=== PATIENT | male | born 1940 | race Caucasian/White ===

== ENCOUNTER 2020-11-21 07:46 | Outpatient (REF) | payer MEDICARE, SELFPAY ==
--- NOTE | ~2020-11-21 | XR_ITS ---
EXAMINATION: XR SHOULDER, RIGHT CLINICAL INFORMATION: Pain right shoulder. COMPARISON: None TECHNIQUE: AP external rotation, Grashey, scapular Y, and axillary views of the right shoulder. FINDINGS: There is loss of right AC joint space with periarticular spurring. The glenohumeral joint space is reduced with minimal glenoid spurring. No loose bodies or bony erosive changes seen. There is no dislocation or subluxation. The soft tissues are normal. XR/XR shoulder RT min 2V IMPRESSION: Mild degenerative changes right AC and glenohumeral joints. No acute fracture, loose bodies or soft tissue calcification.
== END 2020-11-21 07:47 | disposition home or self-care (01) ==
LOC: HO.XRAY 07:46
PROVIDERS: PCP Internal Medicine; Visit Provider Internal Medicine
DX: M25.519 Pain in unspecified shoulder (principal)
CPT/HCPCS: 73030

== ENCOUNTER 2021-02-05 14:00 | Outpatient (RCR) | payer MEDICARE, SELFPAY ==
[2020-12-31 14:08] VITALS: BP 118/70
--- NOTE | 2020-12-31 15:27 | MHC.PT.EP ---
[facility] [place] Office [place] Office [place] Office [address] Carmeliat Mendez [address] [phone] F: [phone] F: [phone] F: [phone] F: [phone] Physical Therapy Plan of Care Date of Evaluation: 12/31/20 Date of Surgery: N/A Diagnosis: R Shoulder Pain Assessment: Jeffrey is a 80-year-old man presenting to physical therapy with a diagnosis of R shoulder pain. He demonstrates deficits in R shoulder strength and ROM, impaired scapular muscle strength, and impaired posture. Jeffrey would benefit from skilled therapy to address the aforementioned impairments and increase his tolerance to reaching overhead and behind his back, lifting and carrying items, and sleeping comfortably through the night as needed for ADLs and IADLs. Jeffrey demonstrates a good understanding of his prognosis and POC and is motivated to participate in therapy. Frequency and Duration: The patient will be seen 2 visits per week for 5 weeks Short Term Goals: -Pt will report <2/10 pain at rest in his R shoulder to allow him to sleep through the night within 3 weeks. -Pt will independently check and assess seated posture while watching television within 3 weeks. 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 -Pt will be able to tuck his shirt in and wash his hair with <2/10 pain within 5 weeks. -Pt will be independent with [facility] for symptom management and maintenance following discharge within 5 weeks. Treatment Plan: Modalities to reduce pain, spasms and effusion. Manual therapy to restore motion and function. Therapeutic exercise to improve strength and flexibility. Neuromuscular re-education for posture and balance. Therapeutic activities to return to functional activities of daily living. Electronically signed by: Evonne Arndt, PT, DPT Please sign and return to therapist. Thank you for your referral.
--- NOTE | 2021-02-05 14:50 | MHC.PT.DC ---
[facility] [place] Office [place] Office [place] Office [address] Carmelita Mendez [address] [phone] F: [phone] F: [phone] F: [phone] F: [phone] Physical Therapy Discharge Report Diagnosis: R shoulder pain Date of Surgery: N/A Date of Evaluation: 12/31/20 Date of Discharge: 02/05/21 Treatments to Date: 11 Cancellations to Date: 0 No Shows to Date: 0 Discharge Status: Achieved Goals Improved Function Independent with HEP Discharge Summary: 02/05/21- Jeffrey has completed 11 PT visits and has achieved all goals set for him. He has improved and is independent with all HEPs. Jeffrey was therefore d/c from therapy today. He is in agreement with the plan. Electronically signed by: Evonne Arndt, PT, DPT Please sign and return to therapist. Thank you for your referral.
== END 2021-02-05 14:51 | disposition other institution (70) ==
LOC: HO.PT 14:00
PROVIDERS: PCP Internal Medicine; Visit Provider Internal Medicine
DX: M25.511 Pain in right shoulder (principal)
CPT/HCPCS: 97110; 97112; 97140; 97161; 97530

== ENCOUNTER 2021-08-15 18:43 | Inpatient (IN) | payer MEDICARE, OTHER, SELFPAY ==
--- NOTE | ~2021-08-15 | XR_ITS ---
EXAMINATION: XR CHEST CLINICAL INFORMATION: NG tube confirmation COMPARISON: 01/07/2017 TECHNIQUE: Frontal view of the chest was obtained. FINDINGS: Nasogastric tube tip lies in the proximal stomach with side-port in the region of the distal esophagus. The lung apices are not fully included in the [id number]. No focal consolidation is seen. No evidence of pleural effusion or pulmonary edema. The cardiomediastinal contour is unremarkable. There is partial visualization of gaseous distention of the stomach. XR/XR chest 1V IMPRESSION: Nasogastric tube tip in the proximal stomach with side-port in the region of the distal esophagus; advancement by approximately 10 cm is recommended.
--- NOTE | ~2021-08-15 | CT_ITS ---
EXAMINATION: CT ABDOMEN AND PELVIS WITH CONTRAST CLINICAL INFORMATION: Postop gastrojejunostomy. Fever and nausea. Question collection, obstruction. Evaluation. COMPARISON: Prior examinations including most recent CT abdomen and pelvis July 2021. TECHNIQUE: Multidetector volumetric images were obtained from the superior aspect of the liver through the pubic symphysis following administration 85 mL of Omnipaque 350 intravenous contrast. Sagittal and coronal reformatted images were obtained on the technologist's workstation. Oral contrast: No This CT examination was performed using dose optimization techniques as appropriate, variously including the following: *Automated exposure control *Adjustment of mA and/or kV according to patient size (this includes techniques or standardized protocols for targeted exams where dose is matched to indication/reason for exam; i.e. extremities or head) *Use of iterative reconstruction technique DLP: 599 mGy-cm FINDINGS: LUNG BASES: The visualized lung bases are unremarkable. LIVER, GALLBLADDER, AND BILIARY TREE: The liver is normal in size, shape, and attenuation. There is a 1 cm low-density lesion in the posterior aspect of the right lobe of the liver as seen on axial image 31 series 8. This is unchanged compared to prior. The gallbladder is unremarkable with no evidence of radiopaque gallstones, gallbladder wall thickening, or obvious pericholecystic inflammatory changes. PANCREAS: See description of adjacent mass below. Pancreas otherwise unremarkable. SPLEEN: Unremarkable. ADRENAL GLANDS: Left adrenal nodule unchanged measuring 19 mm transverse. Measures 39 Hounsfield units. KIDNEYS AND URETERS: Multiple hypodensities in the right kidney largest measuring approximately 1 cm unchanged compared to prior compatible with simple cyst. The other lesions are too small to clearly characterize but likely reflecting additional cysts. BLADDER: Unremarkable. GASTROINTESTINAL TRACT: Postop changes related to gastrojejunostomy. Persistent bowel wall thickening of the gastric antrum similar to prior. As before there is a complex predominately hypodense mass abutting the duodenum and pancreatic head. This measures 4.1 cm transverse previously 5 cm. There is mild stranding in the surrounding soft tissues. Bowel loops do not appear dilated. There is no localized fluid collection. Large bowel unremarkable. Moderate amount of fluid within the stomach. ABDOMINAL WALL: Postoperative changes with skin jasper in place in the midline. LYMPH NODES: Normal. VASCULAR: There is a moderate amount of arterial calcification present throughout. PELVIC VISCERA: Unremarkable. OSSEOUS STRUCTURES: There is spondylosis of the lumbosacral spine with multilevel degenerative disc changes most prominent and severe at the L5-S1 level unchanged. There is some sclerosis on the iliac side of the right SI joint perhaps reflecting subchondral cystic change related to arthrosis. CT/CT abdomen pelvis w con IMPRESSION: Persistent nonspecific but concerning mass in the right upper quadrant abutting the antrum of the stomach and pancreas. Persistent thickening of the wall of the antrum of the stomach. Findings remain concerning for gastric malignancy with adjacent necrotic node. Hypoattenuating lesion in the right lobe of the liver nonspecific and does not appear to represent a simple cyst. Neoplasm/metastatic disease remains a consideration particularly given the aforementioned findings. Indeterminate nodule left adrenal gland. Possibility of malignancy remains as noted previously particularly given the aforementioned findings.
--- NOTE | ~2021-08-15 | CT_ITS ---
EXAMINATION: CT ANGIOGRAM OF THE CHEST WITH AND WITHOUT CONTRAST (CT PULMONARY ANGIOGRAM FOR PE) CLINICAL INFORMATION: Cough. Rising white blood cell count. Gastric cancer. Evaluate for a pulmonary embolism. COMPARISON: Most recent chest radiograph done earlier the same day. TECHNIQUE: Prior to contrast administration, noncontrast localization images were obtained. Subsequently, multidetector volumetric imaging was performed from the thoracic inlet to below the diaphragms following the administration of 85 mL Omnipaque 350 intravenous contrast. No contrast reaction reported. Sagittal, coronal, and MIP oblique sagittal reformatted images were obtained on the CT workstation, uploaded to PACS, and reviewed. This CT examination was performed using dose optimization techniques as appropriate, variously including the following: *Automated exposure control *Adjustment of mA and/or kV according to patient size (this includes techniques or standardized protocols for targeted exams where dose is matched to indication/reason for exam; i.e. extremities or head) *Use of iterative reconstruction technique Total exam dose-length product 221 mGy-cm. FINDINGS: QUALITY OF STUDY/CONTRAST BOLUS: Satisfactory. PULMONARY ARTERIES: No central or segmental pulmonary emboli. THORACIC AORTA: No aneurysm or dissection. LUNG: Mild biapical nodular pleural thickening. Mild bibasilar dependent atelectasis. No large, confluent airspace consolidation. The central airways are patent. PLEURA: No pleural effusion or pneumothorax. MEDIASTINUM: Normal heart size. No pericardial effusion. No hilar or mediastinal lymphadenopathy. No evidence of septal bowing or right heart strain. CHEST WALL/AXILLA: No axillary or internal mammary lymphadenopathy. OSSEOUS STRUCTURES: No acute or suspicious osseous abnormality. UPPER ABDOMEN: Upper abdominal surgical clips. Partially visualized gastric wall thickening, better evaluated on the concurrent CT abdomen/pelvis. No reflux of contrast into the hepatic veins to suggest elevated right heart pressures. CT/CT angio chest PE protocol IMPRESSION: 1. No CT angiographic evidence of acute pulmonary embolism. 2. No large, confluent airspace consolidation. 3. No lymphadenopathy. 4. Partially visualized gastric wall thickening, better evaluated on the concurrent CT abdomen/pelvis. VTE: Negative
--- NOTE | ~2021-08-15 | XR_ITS ---
EXAMINATION: XR CHEST CLINICAL INFORMATION: Cough and fever. COMPARISON: Chest radiographs dated 08/27/2021 and 08/15/2021. TECHNIQUE: 2 views of the chest were obtained. FINDINGS: Support devices: Interval removal of enteric tube. There is generalized hyperinflation. Minimal linear markings are seen at the left lung base. Mild biapical pleural thickening and scarring is seen. The heart and mediastinal structures are unremarkable. XR/XR chest 2V IMPRESSION: Generalized hyperinflation is nonspecific, but can be seen with COPD. No acute cardiopulmonary process.
--- NOTE | ~2021-08-15 | XR_ITS ---
EXAMINATION: XR CHEST CLINICAL INFORMATION: Cough. COMPARISON: Previous chest x-ray 08/15/2021 TECHNIQUE: 2 views of the chest were obtained. FINDINGS: There is a nasogastric tube with tip projecting over the distal thoracic esophagus. The cardiac and mediastinal contours are normal. There is biapical pleural thickening. The lungs are otherwise clear. There is no pleural effusion or pneumothorax. Bony structures are unremarkable. XR/XR chest 2V IMPRESSION: No evidence for acute disease in the chest. Nasogastric tube tip projects over the distal thoracic esophagus.
--- NOTE | ~2021-08-15 | CT_ITS ---
EXAMINATION: CT ABDOMEN AND PELVIS WITH CONTRAST CLINICAL INFORMATION: Epigastric pain. COMPARISON: No similar priors. TECHNIQUE: Multidetector volumetric images were obtained from the superior aspect of the liver through the pubic symphysis following administration 85 mL of Omnipaque 350 intravenous contrast. Sagittal and coronal reformatted images were obtained on the technologist's workstation. Oral contrast: No This CT examination was performed using dose optimization techniques as appropriate, variously including the following: *Automated exposure control *Adjustment of mA and/or kV according to patient size (this includes techniques or standardized protocols for targeted exams where dose is matched to indication/reason for exam; i.e. extremities or head) *Use of iterative reconstruction technique DLP: 382 mGy-cm FINDINGS: LUNG BASES: Small calcified granuloma in the left lung base (4:140). No focal consolidation or pleural effusion. LIVER, GALLBLADDER, AND BILIARY TREE: Too small to characterize liver hypodensity in the left hepatic lobe (3:11). There is an additional up to 1 cm hypodensity in the right hepatic lobe (3:26) measuring higher than simple fluid in attenuation. The liver is otherwise normal in size, shape and attenuation. There is a 0.2 cm hyperattenuating nodule in the gallbladder (5:32) possibly representing a polyp or a stone. There is no evidence of gallbladder wall thickening or pericholecystic inflammatory changes. PANCREAS: No focal lesions. The main pancreatic duct is nondilated. No peripancreatic fat stranding or free fluid. SPLEEN: Normal size. No focal lesions. ADRENAL GLANDS: There is a 1.9 cm nodule in the left adrenal gland measuring up to 43 Hounsfield units. The right adrenal gland is engorged but without discrete nodularities. KIDNEYS AND URETERS: The kidneys are normal in size, shape, and attenuation. In the lateral surface of the mid pole of the right kidney there is a 0.8 cm simple cyst and slightly more inferiorly in the right kidney there is a 1.4 cm simple cyst. There are multiple other too small to characterize hypodensities bilaterally that statistically are also likely to represent simple cysts and do not require further workup. No hydronephrosis, hydroureter, or calculi seen. No perinephric stranding. BLADDER: Unremarkable. GASTROINTESTINAL TRACT: The stomach is dilated secondary to an obstructive abnormality in the stomach antrum where there is circumferential and irregular wall thickening of the wall, worrisome for an underlying neoplasia (5:21). The small bowel is nondilated. There are no pericolic inflammatory changes. The appendix is not definitely visualized, however there are no inflammatory changes at the cecal base to suspect appendicitis. There is moderate stool burden throughout the colon. No bowel obstruction. ABDOMINAL WALL: No significant hernia is appreciated. 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 VASCULAR: Atherosclerotic disease. The abdominal aorta is of normal diameter. Evaluation of the arteries near the antral mass is suboptimal due to delayed timing of intravenous contrast. PELVIC VISCERA: Enlarged prostate. OSSEOUS STRUCTURES: No acute or suspicious osseous abnormalities. There is severe multilevel lumbar spondylosis, more apparent at L5-S1 CT/CT abdomen pelvis w con IMPRESSION: Circumferential and irregular wall thickening at the gastric antrum concerning for an underlying neoplasia. 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 There is a 1 cm hypoattenuating lesion in the right hepatic lobe which is also worrisome for metastatic disease. There is an indeterminate 1.9 cm hyperattenuating nodule in the left adrenal gland in which metastatic disease cannot be entirely excluded given additional findings. This result was discussed with Dr Valiente at 08/15/2021 9:16 PM and it was ascertained that the content and urgency of the report was understood at the time of direct communication.
--- NOTE | ~2021-08-15 | XR_ITS ---
EXAMINATION: XR SHOULDER, RIGHT CLINICAL INFORMATION: Right shoulder pain COMPARISON: 11/21/2020 TECHNIQUE: AP external rotation, Grashey, scapular Y, and axillary views of the right shoulder. FINDINGS: No fracture or dislocation seen. Visualized right lung and ribs are normal. Again seen is joint space narrowing and osteophytosis of the acromioclavicular joint. Glenohumeral joint is maintained. XR/XR shoulder RT min 2V IMPRESSION: Similar appearance of right acromioclavicular joint arthrosis but no acute osseous abnormality.
--- NOTE | ~2021-08-15 | FL_ITS ---
EXAMINATION: UPPER GI WITH GASTROGRAFIN CLINICAL INFORMATION: POST GASTROJEJUNOSTOMY. CHECK FOR GASTRIC EMPTYING. COMPARISON: None TECHNIQUE: Limited single contrast upper GI was performed with dilute Gastrografin. Exam was performed of the patient upright. Diluted Gastrografin was administered through the nasogastric tube. FINDINGS: There is a nasogastric tube with tip projecting over the distal thoracic esophagus. The distal thoracic esophagus is normal. The gastric jejunal anastomosis is patent. There is no evidence of gastric outlet obstruction. No leak is seen. The stomach is slightly distended and filled with air. FL/FL upper GI w gastrografin IMPRESSION: No evidence of leak or gastric outlet obstruction. Nasogastric tube tip projects over the distal thoracic esophagus.
[2021-08-15 18:56] VITALS: BP 142/87; PULSE 98; RESP 16; TEMP 36.8; O2SAT 96
[2021-08-15 18:58] VITALS: BP 136/96; PULSE 112; O2SAT 99
--- NOTE | 2021-08-15 18:59 | ECG_ITS ---
Test Reason : ABDOMINAL PAIN Blood Pressure : / mmHG Vent. Rate : 092 BPM Atrial Rate : 092 BPM P-R Int : 136 ms QRS Dur : 098 ms QT Int : 362 ms P-R-T Axes : 067 069 071 degrees QTc Int : 447 ms Sinus rhythm with Premature atrial complexes Incomplete right bundle branch block Nonspecific ST abnormality Inferior leads Abnormal ECG No previous ECGs available Referred By: Shannen Valiente Electronically Signed By:BJORN GONZALEZ MD
[2021-08-15 19:09] VITALS: BP 142/87; PULSE 94; RESP 18; TEMP 36.8; O2SAT 98; BMI 20.3
--- NOTE | 2021-08-15 19:13 | ED_ITS ---
HPI - Abdominal Pain General Chief Complaint: Abdominal Pain Stated Complaint: abd pain vomiting Time Seen by Provider: 08/15/21 18:58 Source: patient Mode of arrival: ambulatory History of Present Illness HPI narrative: 81-year-old male with history of hypertension presents with complaints of epigastric pain with associated very black stools for the past 2-3 days and then patient states that he started having nausea and vomiting this mo rning. He denies that there is any blood within the vomitus and states that he has been having pretty bad reflux for the past 2-3 weeks and his primary care provider chest instructed him to get [id number] Zantac which he states has not been helping. Otherwise, patient denies any fever, chills, shortness of breath, chest pain/palpitations, urinary pain/burning/frequency and denies any intra-abdominal surgery other than appendectomy and denies any history of renal colic. Patient also denies any alcohol or drug use. Related Data Previous Rx's Medication Instructions Recorded amlodipine 5 mg tablet 5 mg PO DAILY #90 cap 01/01/21 hydrochlorothiazide 25 mg tablet 25 mg PO DAILY #90 cap 01/01/21 Allergies Allergy/AdvReac Type Severity Reaction Status Date / Time No Known Allergies Allergy Verified 07/26/21 10:51 [No Known Allergies*] Review of Systems Review of Systems Pertinent positives and negatives as stated in HPI 10 point review of systems is otherwise negative. Physical Exam Vital Signs: Vital Signs: Last Vital Signs Temp 98.2 F 08/15/21 19:31 Pulse 86 08/15/21 19:31 Resp 18 08/15/21 19:31 BP 156/88 H 08/15/21 19:31 Pulse Ox 97 08/15/21 19:31 Body Mass Index 20.3 VITAL SIGNS: Reviewed. GENERAL: Well developed, well nourished, in no acute distress. HEAD: Normocephalic/atraumatic EYES: PERRLA, EOMI OROPHARYNX: no oral lesions noted, posterior pharynx clear LUNGS: Normal breath sounds. No adventitious sounds or accessory muscle use. SpO2<98> CARDIOVASCULAR: Regular rate and rhythm without noted murmurs, no JVD or lower extremity edema. ABDOMEN: Soft, tenderness on palpation the epigastrium without rebound non- distended with bowel sounds. GIAN: Noninflamed external hemorrhoids, no fissures, empty rectal vault without stool, good rectal tone SKIN: Inspection of the skin reveals no rashes NEUROLOGIC: Alert and oriented x 4. Course Course Course Narrative: 81-year-old male with history and clinical presentation consi stent with possible PUD with subsequent bleeding, although equivocal GIAN. Review of all investigations unfortunately consistent with gastric mass and suspicious for metastatic disease. Patient was informed of all results and the case was discussed with Gastroenterology, surgery, and patient was admitted to Medicine for further evaluation. MDM - Abdominal Pain Lab Data Result diagrams: 08/15/21 19:19 08/15/21 19:19 Labs: Lab Results 08/15/21 08/15/21 08/15/21 Range/Units 19:14 19:19 19:19 WBC 9.2 (4.8-10.8) X10*3/uL RBC 4.11 L (4.60-5.80) X10*6/uL Hgb 13.1 L (14.0-18.0) g/dl Hct 37.8 L (42.0-52.0) % MCV 92.0 (80.0-98.0) fL MCH 31.9 (27.0-33.0) pg MCHC 34.7 (31.0-36.0) g/dl RDW 12.5 (11.0-16.0) % Plt Count 361 (160-400) X10*3/uL MPV 10.9 (9.4-12.4) fL Immature Gran % (Auto) 0.2 (0.0-0.4) % Neut % (Auto) 84.0 H (45-73) % Lymph % (Auto) 7.5 L (20-40) % [place] % (Auto) 8.0 (2-11) % Eos % (Auto) 0.0 (0-4) % Baso % (Auto) 0.3 (0-2) % Lymph # (Auto) 0.7 L (1.2-4.9) X10*3/uL [place] # (Auto) 0.7 (0.1-1.2) X10*3/uL Eos # (Auto) 0.0 (0.0-0.4) X10*3/uL Baso # (Auto) 0.0 (0.0-0.2) X10*3/uL Abs Immat Gran (auto) 0.02 (0.00-0.03) X10*3/uL Absolute Neuts (auto) 7.7 (2.0-8.3) x10*3/uL Absolute Nucleated RBC 0.000 (0.0-0.012) X10*3/uL Nucleated RBC % (auto) 0.0 (0.0-0.2) /100WBC Sodium 139 (135-145) mmol/L Potassium 3.3 (3.3-5.1) mmol/L Chloride 102 (96-108) mmol/L Carbon Dioxide 27 (22-29) mmol/L Anion Gap 13 (12-20) BUN 17 H (9-16) mg/dL Creatinine 1.06 (0.5-1.4) mg/dL Estim Creat Clear Calc 54.3 Estimated GFR > 60 Random Glucose 119 H (60-115) mg/dL Lactic Acid (0.5-2.0) mmol/L Calcium 9.8 (8.4-10.2) mg/dL Total Bilirubin 0.6 (0.0-1.0) mg/dL AST 22 (5-37) U/L ALT 14 (0-40) U/L Alkaline Phosphatase 68 (39-117) U/L Troponin I High Sens (<3.5-35.0) ng/L Total Protein 7.1 (6.5-8.0) g/dL Albumin 4.4 (3.5-5.0) g/dL Lipase 58 (8-78) U/L Stool Occult Blood NEGATIVE (NEGATIVE) 08/15/21 08/15/21 Range/Units 19:19 19:19 WBC (4.8-10.8) X10*3/uL RBC (4.60-5.80) X10*6/uL Hgb (14.0-18.0) g/dl Hct (42.0-52.0) % MCV (80.0-98.0) fL MCH (27.0-33.0) pg MCHC (31.0-36.0) g/dl RDW (11.0-16.0) % Plt Count (160-400) X10*3/uL MPV (9.4-12.4) fL Immature Gran % (Auto) (0.0-0.4) % Neut % (Auto) (45-73) % Lymph % (Auto) (20-40) % [place] % (Auto) (2-11) % Eos % (Auto) (0-4) % Baso % (Auto) (0-2) % Lymph # (Auto) (1.2-4.9) X10*3/uL [place] # (Auto) (0.1-1.2) X10*3/uL Eos # (Auto) (0.0-0.4) X10*3/uL Baso # (Auto) (0.0-0.2) X10*3/uL Abs Immat Gran (auto) (0.00-0.03) X10*3/uL Absolute Neuts (auto) (2.0-8.3) x10*3/uL Absolute Nucleated RBC (0.0-0.012) X10*3/uL Nucleated RBC % (auto) (0.0-0.2) /100WBC Sodium (135-145) mmol/L Potassium (3.3-5.1) mmol/L Chloride (96-108) mmol/L Carbon Dioxide (22-29) mmol/L Anion Gap (12-20) BUN (9-16) mg/dL Creatinine (0.5-1.4) mg/dL Estim Creat Clear Calc Estimated GFR Random Glucose (60-115) mg/dL Lactic Acid 1.3 (0.5-2.0) mmol/L Calcium (8.4-10.2) mg/dL Total Bilirubin (0.0-1.0) mg/dL AST (5-37) U/L ALT (0-40) U/L Alkaline Phosphatase (39-117) U/L Troponin I High Sens 5.3 (<3.5-35.0) ng/L Total Protein (6.5-8.0) g/dL Albumin (3.5-5.0) g/dL Lipase (8-78) U/L Stool Occult Blood (NEGATIVE) ECG Data Attestation: I personally reviewed and interpreted this ECG as follows: Prior ECG tracings: not available for review Interpretation: Sinus rhythm with PACs, HR-92, incomplete right bundle branch block, SD/QRS/QTC are within normal limits. Discharge Plan Discharge Clinical Impression: Gastric out let obstruction, Gastric mass Patient Disposition: Admitted As Inpatient [facility] Past Medical History Source: nursing notes reviewed Medical History Hypertension Surgical History History of appendectomy Family History Family History Father Past heart attack Mother Past heart attack Social History Social History Alcohol intake: current Alcohol intake frequency: holidays/special occasions only Patient Tobacco Use Status: Former Tobacco user Years Smoked: 30 Advance Directives: No Advance Directives Information Provided: Yes
[2021-08-15 19:25] LABS: MANUAL DIFF FLAG NO
[2021-08-15 19:27] LABS: OBS Int Ctl Valid YES; OBS1 NEGATIVE (NEGATIVE)
[2021-08-15 19:28] LABS: Basophils Percent Auto 0.3 % (0-2); Hematocrit 37.8 % (42.0-52.0); Hemoglobin 13.1 g/dl (14.0-18.0); Imm Gran Abs Auto 0.02 X10*3/uL (0.00-0.03); Imm Gran Pct Auto 0.2 % (0.0-0.4); Lymphocytes Absolute Auto 0.7 X10*3/uL (1.2-4.9); Lymphocytes Percent Auto 7.5 % (20-40); Mean Corpuscular HGB Conc 34.7 g/dl (31.0-36.0); Mean Corpuscular Hemoglobin 31.9 pg (27.0-33.0); Mean Platelet Volume 10.9 fL (9.4-12.4); Monocytes Absolute Auto 0.7 X10*3/uL (0.1-1.2); Neutrophils Absolute Auto 7.7 x10*3/uL (2.0-8.3); Platelet Count 361 X10*3/uL (160-400); Red Blood Count 4.11 X10*6/uL (4.60-5.80); Red Cell Distribution Width 12.5 % (11.0-16.0); White Blood Count 9.2 X10*3/uL (4.8-10.8)
[2021-08-15 19:31] VITALS: BP 156/88; PULSE 86; RESP 18; TEMP 36.8; O2SAT 97
[2021-08-15 19:38] LABS: Lactic Acid 1.3 mmol/L (0.5-2.0)
[2021-08-15 19:44] LABS: Alanine Aminotransferase 14 U/L (0-40); Albumin Level 4.4 g/dL (3.5-5.0); Alkaline Phosphatase 68 U/L (39-117); Anion Gap 13 (12-20); Aspartate Amino Transferase 22 U/L (5-37); Bilirubin Total 0.6 mg/dL (0.0-1.0); Blood Urea Nitrogen 17 mg/dL (9-16); Calcium 9.8 mg/dL (8.4-10.2); Carbon Dioxide 27 mmol/L (22-29); Chloride 102 mmol/L (96-108); Creatinine Clr Calc Pharmacy 54.3; Estimated Glomerular Filt Rate > 60; Glucose Random 119 mg/dL (60-115); Lipase 58 U/L (8-78); Potassium 3.3 mmol/L (3.3-5.1); Sodium 139 mmol/L (135-145); Total Protein 7.1 g/dL (6.5-8.0)
[2021-08-15 20:05] LABS: Troponin-I High Sensitivity 5.3 ng/L (<3.5-35.0)
[2021-08-15] MEDS: iohexoL 350 MG/ML 100 ML INFUS..BTL IV (20:48)
[2021-08-15] MEDS: Lidocaine HCl Viscous 2 % 15 ML SOLUTION 10 ML MUCOUS MEM (20:59)
[2021-08-15] MEDS: Magnesium Hydrox/Alum Hydrox 30 ML ORAL.SUSP PO (20:59)
[2021-08-15] MEDS: Famotidine/PF 20 MG/2 ML VIAL IVPUSH (21:00)
[2021-08-15 22:21] VITALS: BP 158/91; PULSE 70; RESP 16; O2SAT 99
--- NOTE | 2021-08-15 22:25 | PM.IMHP ---
History of Present Illness Date of Service: 08/15/21 Chief Complaint: Abdominal pain 81-year-old male with a past medical history of hypertension presented to the hospital with a chief complaint of abdominal pain. Patient reported that of past few days he has been having abdominal discomfort and acid reflux symptoms. But last night and yesterday he had leg increased abdominal pain not able to take anything p.o. had nausea and vomiting at home, denies any blood in the vomiting. Denies any blood in the stool. Denies any chest pain palpitations lightheadedness or dizziness. Denies any fever chills cough. Denies any urinary symptoms. Review of all other systems is negative except mentioned above ER course: Per ER team on CT scan noted to have gastric lesion, hepatic nodule, adrenal nodule; discussed with general surgery who recommended admission to the medicine service. ER team also notified Gastroenterology for possible EGD. Admitted for further management. [facility] Medical History Hypertension Family History Father Past heart attack Mother Past heart attack Pertinent family history: As mentioned above Surgical History History of appendectomy Social History Alcohol intake: current Alcohol intake frequency: holidays/special occasions only Patient Tobacco Use Status: Former Tobacco user Years Smoked: 30 Advance Directives: No Advance Directives Information Provided: Yes Meds Allergies Allergy/AdvReac Type Severity Reaction Status Date / Time No Known Allergies Allergy Verified 07/26/21 10:51 [No Known Allergies*] Physical Exam Vital Signs and Narrative: Vital Signs: Last Vital Signs Temp 98.2 F 08/15/21 19:31 Pulse 86 08/15/21 19:31 Resp 18 08/15/21 19:31 BP 156/88 H 08/15/21 19:31 Pulse Ox 97 08/15/21 19:31 Body Mass Index 20.3 Gen: Appears be in no acute distress HEENT: NCAT, Moist mucosa. Pulmonary: Vesicular breath sounds, fair air entry CVS: Normal S1-S2 Abdomen: BS+, Soft, mildly tender in epigastrium; no guarding no rigidity Extremities: Warm well perfused Neuro: Alert and awake. Results Labs CBC and Chem 7: 08/15/21 19:19 08/15/21 19:19 Labs: Laboratory Results - last 24 hr 08/15/21 08/15/21 08/15/21 19:14 19:19 19:19 MCV 92.0 MCH 31.9 MCHC 34.7 RDW 12.5 Plt Count 361 MPV 10.9 Immature Gran % (Auto) 0.2 Neut % (Auto) 84.0 H Lymph % (Auto) 7.5 L [place] % (Auto) 8.0 Eos % (Auto) 0.0 Baso % (Auto) 0.3 Lymph # (Auto) 0.7 L [place] # (Auto) 0.7 Eos # (Auto) 0.0 Baso # (Auto) 0.0 Abs Immat Gran (auto) 0.02 Absolute Neuts (auto) 7.7 Absolute Nucleated RBC 0.000 Nucleated RBC % (auto) 0.0 Anion Gap 13 Estim Creat Clear Calc 54.3 Estimated GFR > 60 Random Glucose 119 H Lactic Acid Calcium 9.8 Total Bilirubin 0.6 AST 22 ALT 14 Alkaline Phosphatase 68 Troponin I High Sens Total Protein 7.1 Albumin 4.4 Lipase 58 Stool Occult Blood NEGATIVE 08/15/21 08/15/21 19:19 19:19 MCV MCH MCHC RDW Plt Count MPV Immature Gran % (Auto) Neut % (Auto) Lymph % (Auto) [place] % (Auto) Eos % (Auto) Baso % (Auto) Lymph # (Auto) [place] # (Auto) Eos # (Auto) Baso # (Auto) Abs Immat Gran (auto) Absolute Neuts (auto) Absolute Nucleated RBC Nucleated RBC % (auto) Anion Gap Estim Creat Clear Calc Estimated GFR Random Glucose Lactic Acid 1.3 Calcium Total Bilirubin AST ALT Alkaline Phosphatase Troponin I High Sens 5.3 Total Protein Albumin Lipase Stool Occult Blood Imaging Radiologist's Impressions: Impressions Abdomen/Pelvis CT 08/15/21 20:22 IMPRESSION: Circumferential and irregular wall thickening at the gastric antrum concerning for an underlying neoplasia. 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 There is a 1 cm hypoattenuating lesion in the right hepatic lobe which is also worrisome for metastatic disease. There is an indeterminate 1.9 cm hyperattenuating nodule in the left adrenal gland in which metastatic disease cannot be entirely excluded given additional findings. This result was discussed with Dr Valiente at 08/15/2021 9:16 PM and it was ascertained that the content and urgency of the report was understood at the time of direct communication. Assessment and Plan (1) Gastric mass: Status: Acute (2) Hypertension: Status: Acute 81-year-old male with a past medical history of hypertension presented to the hospital with a chief complaint of abdominal pain. Noted to have gastric antral thickening concerning for neoplasia. Admitted for further management. Gastric lesion: CT scan showed gastric antrum thickening concern for need place ER and 4.9 cm mass in the duodenal bulb concern for necrotic lymph node extent also noted to have 1 cm hepatic lesion on the right lobe concern for metastasis as well as adrenal nodule of 1.9 cm. Gastroenterology consult for possible EGD Oncology consult for further recommendations Will obtain CEA and AFP levels NPO Pain control IV fluids There was also concern for GI bleed per ER team-but stool guaiac was negative. Monitor H&H. IV ppi. DVT prophylaxis: SCD boots Code status: Full code Quality Stroke Does the patient have a stroke diagnosis?: No VTE Prior VTE?: No VTE Risk Level:: Medical - moderate - high VTE Device Contraindication: N/A - Device Ordered VTE Drug Contraindication: Treatment Not Indicated
[2021-08-15 22:37] LABS: COVID-19 Test Negative (Negative); IDNOW Serial# 9DD0AD1C
[2021-08-15 22:46] LABS: Appearance Urine CLEAR; Color Urine YELLOW; Glucose Urine UA NEG (NEG); Leukocyte Esterase Urine NEG (NEG); Nitrite Urine NEG (NEG); PH 5.5 (5.0-8.0); Urine Blood NEG (NEG); Urine Ketones 15 MG/DL (NEG); Urine Protein NEG (NEG-TRACE)
[2021-08-15] MEDS: Dextrose 5 % and 0.45 % NaCl 1,000 ML 75 ML IVCONT (23:42)
[2021-08-16 04:00] VITALS: BP 126/62; PULSE 78; RESP 14; O2SAT 99
[2021-08-16 05:49] LABS: MANUAL DIFF FLAG NO
[2021-08-16 05:55] LABS: Basophils Percent Auto 0.3 % (0-2); Eosinophils Percent Auto 0.1 % (0-4); Hematocrit 37.6 % (42.0-52.0); Hemoglobin 12.5 g/dl (14.0-18.0); Imm Gran Abs Auto 0.03 X10*3/uL (0.00-0.03); Imm Gran Pct Auto 0.3 % (0.0-0.4); Lymphocytes Absolute Auto 1.1 X10*3/uL (1.2-4.9); Lymphocytes Percent Auto 11.2 % (20-40); Mean Corpuscular HGB Conc 33.2 g/dl (31.0-36.0); Mean Corpuscular Hemoglobin 30.9 pg (27.0-33.0); Mean Corpuscular Volume 93.1 fL (80.0-98.0); Mean Platelet Volume 11.4 fL (9.4-12.4); Monocytes Absolute Auto 1.2 X10*3/uL (0.1-1.2); Monocytes Percent Auto 12.1 % (2-11); Neutrophils Absolute Auto 7.3 x10*3/uL (2.0-8.3); Platelet Count 333 X10*3/uL (160-400); Red Blood Count 4.04 X10*6/uL (4.60-5.80); Red Cell Distribution Width 12.6 % (11.0-16.0); White Blood Count 9.6 X10*3/uL (4.8-10.8)
[2021-08-16 06:09] LABS: Anion Gap 13 (12-20); Blood Urea Nitrogen 16 mg/dL (9-16); Carbon Dioxide 26 mmol/L (22-29); Chloride 104 mmol/L (96-108); Creatinine Clr Calc Pharmacy 67.8; Estimated Glomerular Filt Rate > 60; Glucose Random 118 mg/dL (60-115); Potassium 3.7 mmol/L (3.3-5.1); Sodium 139 mmol/L (135-145)
[2021-08-16] MEDS: Pantoprazole Sodium 40 MG/10 ML VIAL IVPUSH (06:17)
--- NOTE | 2021-08-16 06:56 | PM.GICN ---
History of Present Illness Data of Consult Service Date: 08/16/21 Requesting physician: Nikolas Bingham Primary Care Provider: Unknown Physician HPI Reason for consult: gastric mass 81-year-old male with a past medical history of hypertension who I am seeing for assessment for gastric mass. Initially presented with upper abdominal pain going on for 3 d without any radiaton, no excerbating or relieving factors but associated with worsening acid reflux and nausea with non bloody emesis. Denies any blood in the stool, no melena Denies any fever chills cough. Denies any chest pain palpitations lightheadedness or dizziness.? he maintains that prior to this he was eating normally and had no trouble eating or swallowing or abdominal pain, but did have occ reflux ? Labs revealed mild anemia with HGB a year ago being nml, CEA significantly elevated. CT imaging -personally reviewed with thickened stomach wall paulette antrum with distention and enlarged LN, possible liver met, kidney cysts, adrenal nodule. he had NGT inserted and food like material noted in the suction cannister, no blood or coffee grounds. Review of Systems Review of Systems: Constitutional : No Weight loss, No Fever, No Chills ENT/Mouth : No sore throat, No Rhinorrhea Eyes: No Swelling, No Redness Cardiovascular : No Chest Pain, No SOB, No Edema Respiratory : No Cough, No Sputum, No Wheezing Gastrointestinal : see HPI Genitourinary : NO Dysuria, No Urinary Frequency, No Hematuria, No Urgency Musculoskeletal : No joint pain, No Myalgias, No Joint Swelling Skin : No Skin Lesions, No rash Neuro : No Weakness, No Numbness, No Dizziness, No Headache Psych : No Anxiety/Panic, No Depression Heme/Lymph: No Bruising, No Lymphadenopathy Endocrine : No Polyuria, No Polydipsia All other systems reviewed and are negative. [facility] Past Medical History Medical History Hypertension Family History Family History Father Past heart attack Mother Past heart attack Surgical History Surgical History History of appendectomy Social History Social History Alcohol intake: unknown Patient Tobacco Use Status: Former Tobacco user Years Smoked: 30 Use of substances other than those prescribed or required for medical reasons: Unknown Advance Directives: No Advance Directives Information Provided: Yes Meds Allergies Allergy/AdvReac Type Severity Reaction Status Date / Time No Known Allergies Allergy Verified 07/26/21 10:51 [No Known Allergies*] Active Medications: Current Medications Amlodipine Besylate (Amlodipine Besylate 5 Mg Tablet) 5 mg PO DAILY [facility]; Protocol Hydromorphone HCl (Hydromorphone Hcl 0.5 Mg/0.5 Ml Syringe) 0.5 mg IVPUSH Q4H PRN; Protocol PRN Reason: Pain, Severe (Pain Scale 7-10) Dextrose/Sodium Chloride (D51/2ns) 1,000 mls @ 75 mls/hr IVCONT .[id number] [facility] Last Admin: 08/15/21 23:42 Dose: 75 mls/hr Documented by: Melatonin (Melatonin 3 Mg Tablet) 6 mg PO BEDTIME PRN PRN Reason: Insomnia Ondansetron HCl (Ondansetron Hcl 4 Mg/2 Ml Vial) 4 mg IVPUSH Q8H PRN PRN Reason: Nausea and Vomiting Pantoprazole Sodium (Pantoprazole Sodium 40 Mg/10 Ml Vial) 40 mg IVPUSH DAILY@0630 [facility] Last Admin: 08/16/21 06:17 Dose: 40 mg Documented by: Sodium Chloride (0.9 % Sodium Chloride Flush 3 Ml Syringe) 3 ml IVFLUSH QSHIFT [facility] Last Admin: 08/16/21 01:00 Dose: Not Given Documented by: Physical Exam Vital Signs: Vital Signs: Last Vital Signs Temp 98.2 F 08/15/21 19:31 Pulse 78 08/16/21 04:00 Resp 14 08/16/21 04:00 BP 126/62 08/16/21 04:00 Pulse Ox 99 08/16/21 04:00 Body Mass Index 20.3 EXAM: GENERAL: The patient is thin and tall VITAL SIGNS:see workflow HEENT: Nonicteric sclerae, PERRLA, EOMI. Oropharynx clear. Moist mucous membranes. Conjunctivae appear well perfused. No thyroid mass. CHEST: Chest wall is nontender. HEART: Regular rate and rhythm without murmurs. LUNGS: Clear to auscultation bilaterally. ABDOMEN: Soft, positive bowel sounds, nontender, no organomegaly.no flank tenderness SKIN: No rash, no excessive bruising, petechiae, or purpura. NEUROLOGIC: Cranial nerves II-XII intact without motor/sensory deficit. MS: normal Psych--nml affect Results Labs CBC & Chem 7: 08/16/21 05:14 08/16/21 05:14 Labs: Short CBC 08/15/21 08/16/21 Range/Units 19:19 05:14 WBC 9.2 9.6 (4.8-10.8) X10*3/uL Hgb 13.1 L 12.5 L (14.0-18.0) g/dl Hct 37.8 L 37.6 L (42.0-52.0) % Plt Count 361 333 (160-400) X10*3/uL BMP 08/15/21 08/16/21 19:19 05:14 Sodium 139 139 Potassium 3.3 3.7 Chloride 102 104 Carbon Dioxide 27 26 BUN 17 H 16 Creatinine 1.06 0.85 Calcium 9.8 9.0 D Liver Function 08/15/21 Range/Units 19:19 Total Bilirubin 0.6 (0.0-1.0) mg/dL AST 22 (5-37) U/L ALT 14 (0-40) U/L Alkaline Phosphatase 68 (39-117) U/L Albumin 4.4 (3.5-5.0) g/dL Urine 08/15/21 Range/Units 22:40 Urine Color YELLOW Urine Appearance CLEAR Urine pH 5.5 (5.0-8.0) Ur Specific [place] 1.010 (1.005-1.025) Urine Protein NEG (NEG-TRACE) MG/DL Urine Glucose (UA) NEG (NEG) MG/DL Assessment and Plan (1) Gastric out let obstruction: Status: Acute 1/ Gastric outlet obstruction concern would be gastric neoplasia, ddx: lymphoma, PUD, MALTOMA 2/ anemia may be due to occult blood loss from gastric process, or anemia of chronic disease PLAN: 1/ Already has NGT in place 2/ EGD prob earliest is going to be Thursday, can allow clears if tolerated, other samuels may need to review other nutrition modalities such as TPN for short time 3/ check iron, folic, b12 and replace if low Procedures Date of Service Date of Service: 08/16/21
[2021-08-16 08:32] VITALS: BP 137/75; PULSE 72; RESP 16; TEMP 36.7; O2SAT 97
[2021-08-16 08:40] VITALS: BP 137/75; PULSE 76
--- NOTE | 2021-08-16 11:36 | MHC.CM.PN ---
Addendum entered by Michelle Doan 08/16/21 11:45: COPY [place] [facility] Original Note: CM MET WITH PT WHO REPORTS HE LIVES ALONE AND IS INDEPENDENT WITH CARE PT DENIES USE OF DME OR SERVICES PT REPORTS HIS PCP IS MARITZA EDWARD PT REPORTS HE HAS A HCP COMPLETED ALREADY NAMING HIS BROTHER HIS AGENT. COPY REQUESTED PT REPORTS CONCERN ABOUT HOSPITAL BILLS AND ASKS TO SPEAK TO SOMEONE FROM . REFERRAL SENT. IMM DELIVERED CURRENT DC PLAN IS HOME WITH NO SERVICES PT WILL NEED A CHAIR VAN HOME OR IF IMPROVED, THE SHUTTLE
--- NOTE | 2021-08-16 12:06 | PM.HEMONCCN ---
Subjective - Subjective Chief complaint: gasrtic tumor Patient: new to practice Consult date: 08/16/21 Primary Care Provider: Unknown Physician HPI - Consult Narrative Narrative: Jeffrey Schilling is a 81 year old male who came to the ER with abdominal pain. He appears cachectic but denies weight loss. On abdominal CT he has suspicious circumferential thickening of the gastric antrum and a 1.9 cm necrotic node beneath the duodenum. An endoscomp is planned for August 19, 2021. Review of Systems - Constitutional Reports anorexia, Reports weakness - Cardiovascular Reports shortness of breath - Respiratory Reports other - Gastrointestinal Reports abdominal pain, Reports feeling full early - Genitourinary Genitourinary: Reports frequent nighttime urination - Musculoskeletal Reports stiffness - Integumentary/Breasts Skin/Breast: Reports other - Neurologic Reports weakness PMFSH Medical History: Medical History (Last Reviewed 08/15/21 @ 19:17 by Shannen Valiente MD) Hypertension Family History: Family History (Last Reviewed 08/15/21 @ 19:17 by Shannen Valiente MD) Father Past heart attack Mother Past heart attack Surgical History: Surgical History (Last Reviewed 08/15/21 @ 19:17 by Shannen Valiente MD) History of appendectomy Social History: Social History (Last Reviewed 08/15/21 @ 19:17 by Shannen Valiente MD) Alcohol History: Alcohol intake: unknown Alcohol History Details: Alcohol intake frequency: holiday/special occasion Tobacco History: Patient Tobacco Use Status: Former Tobacco user Years Smoked: 30 Substance Use History: Use of substances other than those prescribed or required for medical reasons: Unknown Advance Directives: Advance Directives: No Advance Directives Information Provided: Yes 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 occupational status: retired Home Medications and Allergies Current Medications: Current Medications Amlodipine Besylate (Amlodipine Besylate 5 Mg Tablet) 5 mg PO DAILY [facility]; Protocol Last Admin: 08/16/21 08:40 Dose: Not Given Documented by: Hydromorphone HCl (Hydromorphone Hcl 0.5 Mg/0.5 Ml Syringe) 0.5 mg IVPUSH Q4H PRN; Protocol PRN Reason: Pain, Severe (Pain Scale 7-10) Dextrose/Sodium Chloride (D51/2ns) 1,000 mls @ 75 mls/hr IVCONT .[id number] [facility] Last Admin: 08/15/21 23:42 Dose: 75 mls/hr Documented by: Melatonin (Melatonin 3 Mg Tablet) 6 mg PO BEDTIME PRN PRN Reason: Insomnia Ondansetron HCl (Ondansetron Hcl 4 Mg/2 Ml Vial) 4 mg IVPUSH Q8H PRN PRN Reason: Nausea and Vomiting Pantoprazole Sodium (Pantoprazole Sodium 40 Mg/10 Ml Vial) 40 mg IVPUSH DAILY@0630 [facility] Last Admin: 08/16/21 06:17 Dose: 40 mg Documented by: Sodium Chloride (0.9 % Sodium Chloride Flush 3 Ml Syringe) 3 ml IVFLUSH QSHIFT [facility] Last Admin: 08/16/21 08:41 Dose: Not Given Documented by: Allergies Allergy/AdvReac Type Severity Reaction Status Date / Time No Known Allergies Allergy Verified 07/26/21 10:51 [No Known Allergies*] Physical Exam Vital signs: Vital Signs Temp 98.0 F 08/16/21 08:32 Pulse 76 08/16/21 08:40 Resp 16 08/16/21 08:32 BP 137/75 08/16/21 08:40 Pulse Ox 97 08/16/21 08:32 Intake & Output 08/15/21 08/16/21 08/16/21 18:59 06:59 18:59 Other: Weight 68.039 kg Weight 68.039 kg - Constitutional Present: no acute distress - Routine Respiratory Exam Present: decreased breath sounds - Routine Cardiovascular Exam Cardiovascular: Present: RRR, S1, S2 - Routine Abdominal Exam Present: diminished bowel sounds, hypoactive bowel sounds - Routine Extremities Exam Present: nontender Hem/Onc Consult Result - Labs CBC & Chem 7: 08/16/21 05:14 08/16/21 05:14 Labs: Short CBC 08/15/21 08/16/21 Range/Units 19:19 05:14 WBC 9.2 9.6 (4.8-10.8) X10*3/uL Hgb 13.1 L 12.5 L (14.0-18.0) g/dl Hct 37.8 L 37.6 L (42.0-52.0) % Plt Count 361 333 (160-400) X10*3/uL BMP 08/15/21 08/16/21 19:19 05:14 Sodium 139 139 Potassium 3.3 3.7 Chloride 102 104 Carbon Dioxide 27 26 BUN 17 H 16 Creatinine 1.06 0.85 Calcium 9.8 9.0 D Liver Function 08/15/21 Range/Units 19:19 Total Bilirubin 0.6 (0.0-1.0) mg/dL AST 22 (5-37) U/L ALT 14 (0-40) U/L Alkaline Phosphatase 68 (39-117) U/L Albumin 4.4 (3.5-5.0) g/dL Urine 08/15/21 Range/Units 22:40 Urine Color YELLOW Urine Appearance CLEAR Urine pH 5.5 (5.0-8.0) Ur Specific [place] 1.010 (1.005-1.025) Urine Protein NEG (NEG-TRACE) MG/DL Urine Glucose (UA) NEG (NEG) MG/DL Assessment and Plan Patient Active problem list reviewed?: Yes (1) Gastric mass Status: Acute Assessment and plan: I agree with the planned endoscopy. He will likely need a PET/CT and a surgical consultation. I will follow him with you. - Time Spent With Patient Time Spent with Patient (in minutes): 20
[2021-08-16] MEDS: Dextrose 5 % and 0.45 % NaCl 1,000 ML 75 ML IVCONT (14:13)
[2021-08-16 14:17] VITALS: BP 147/72; PULSE 72; RESP 16; O2SAT 98
--- NOTE | 2021-08-16 15:06 | PC.NURSE ---
NG tube removed., pt tolerating well and tolerating clear liquids. Dr Sanches updated. Awaits bed assgn. Seen by Oncology.
[2021-08-16] MEDS: 0.9 % Sodium Chloride Flush 3 ML SYRINGE IVFLUSH (15:43)
--- NOTE | 2021-08-16 16:27 | HO.PM.IMPN ---
Subjective Subjective Date of Service: 08/16/21 Interval History: doing well overnight; becoming intolerant of NG tube which is draining brown clear liquid Review of Systems denies chest pain Denies shortness of breath Denies nausea vomiting Physical Exam Vital Signs: Vital Signs: Last Vital Signs Temp 98.0 F 08/16/21 08:32 Pulse 72 08/16/21 14:17 Resp 16 08/16/21 14:17 BP 147/72 H 08/16/21 14:17 Pulse Ox 98 08/16/21 14:17 Body Mass Index 20.3 Const: Other: awake alert oriented x3 no acute distress HENMT: Other: NG tube removed Resp: Other: clear to auscultation bilaterally no rales rhonch Cardio: Other: no S4; positive S1-S2; no S3 murmurs rubs or gallops GI: Other: soft nontender nondistended with normoactive bowel sounds Extrem: Other: no edema bilaterally Objective Data Active Medications Amlodipine Besylate (Amlodipine Besylate 5 Mg Tablet) 5 mg PO DAILY [facility]; Protocol Last Admin: 08/16/21 08:40 Dose: Not Given Documented by: LUIS ALFREDO Non-Admin Reason: NPO Hydromorphone HCl (Hydromorphone Hcl 0.5 Mg/0.5 Ml Syringe) 0.5 mg IVPUSH Q4H PRN; Protocol PRN Reason: Pain, Severe (Pain Scale 7-10) Dextrose/Sodium Chloride (D51/2ns) 1,000 mls @ 75 mls/hr IVCONT .[id number] [facility] Last Admin: 08/16/21 14:13 Dose: 75 mls/hr Documented by: LUIS ALFREDO Melatonin (Melatonin 3 Mg Tablet) 6 mg PO BEDTIME PRN PRN Reason: Insomnia Ondansetron HCl (Ondansetron Hcl 4 Mg/2 Ml Vial) 4 mg IVPUSH Q8H PRN PRN Reason: Nausea and Vomiting Pantoprazole Sodium (Pantoprazole Sodium 40 Mg/10 Ml Vial) 40 mg IVPUSH DAILY@0630 [facility] Last Admin: 08/16/21 06:17 Dose: 40 mg Documented by: LÓPEZ Sodium Chloride (0.9 % Sodium Chloride Flush 3 Ml Syringe) 3 ml IVFLUSH QSHIFT [facility] Last Admin: 08/16/21 15:43 Dose: 3 ml Documented by: KETTY Labs CBC & Chem 7: 08/16/21 05:14 08/16/21 05:14 Labs: Laboratory Results - last 24 hr 08/15/21 08/15/21 08/15/21 19:14 19:19 19:19 MCV 92.0 MCH 31.9 MCHC 34.7 RDW 12.5 Plt Count 361 MPV 10.9 Immature Gran % (Auto) 0.2 Neut % (Auto) 84.0 H Lymph % (Auto) 7.5 L [place] % (Auto) 8.0 Eos % (Auto) 0.0 Baso % (Auto) 0.3 Lymph # (Auto) 0.7 L [place] # (Auto) 0.7 Eos # (Auto) 0.0 Baso # (Auto) 0.0 Abs Immat Gran (auto) 0.02 Absolute Neuts (auto) 7.7 Absolute Nucleated RBC 0.000 Nucleated RBC % (auto) 0.0 Anion Gap 13 Estim Creat Clear Calc 54.3 Estimated GFR > 60 Random Glucose 119 H Lactic Acid Calcium 9.8 Total Bilirubin 0.6 AST 22 ALT 14 Alkaline Phosphatase 68 Troponin I High Sens Total Protein 7.1 Albumin 4.4 Lipase 58 Carcinoembryonic Ag 61.90 Urine Color Urine Appearance Urine pH Ur Specific [place] Urine Protein Urine Glucose (UA) Urine Ketones Urine Blood Urine Nitrite Ur Leukocyte Esterase Stool Occult Blood NEGATIVE COVID-19 ([facility]) COVID-19 Clin Com 08/15/21 08/15/21 08/15/21 19:19 19:19 22:12 MCV MCH MCHC RDW Plt Count MPV Immature Gran % (Auto) Neut % (Auto) Lymph % (Auto) [place] % (Auto) Eos % (Auto) Baso % (Auto) Lymph # (Auto) [place] # (Auto) Eos # (Auto) Baso # (Auto) Abs Immat Gran (auto) Absolute Neuts (auto) Absolute Nucleated RBC Nucleated RBC % (auto) Anion Gap Estim Creat Clear Calc Estimated GFR Random Glucose Lactic Acid 1.3 Calcium Total Bilirubin AST ALT Alkaline Phosphatase Troponin I High Sens 5.3 Total Protein Albumin Lipase Carcinoembryonic Ag Urine Color Urine Appearance Urine pH Ur Specific [place] Urine Protein Urine Glucose (UA) Urine Ketones Urine Blood Urine Nitrite Ur Leukocyte Esterase Stool Occult Blood COVID-19 ([facility]) Negative COVID-19 Clin Com See Note 08/15/21 08/16/21 08/16/21 22:40 05:14 05:14 MCV 93.1 MCH 30.9 MCHC 33.2 RDW 12.6 Plt Count 333 MPV 11.4 Immature Gran % (Auto) 0.3 Neut % (Auto) 76.0 H Lymph % (Auto) 11.2 L [place] % (Auto) 12.1 H Eos % (Auto) 0.1 Baso % (Auto) 0.3 Lymph # (Auto) 1.1 L [place] # (Auto) 1.2 Eos # (Auto) 0.0 Baso # (Auto) 0.0 Abs Immat Gran (auto) 0.03 Absolute Neuts (auto) 7.3 Absolute Nucleated RBC 0.000 Nucleated RBC % (auto) 0.0 Anion Gap 13 Estim Creat Clear Calc 67.8 Estimated GFR > 60 Random Glucose 118 H Lactic Acid Calcium 9.0 D Total Bilirubin AST ALT Alkaline Phosphatase Troponin I High Sens Total Protein Albumin Lipase Carcinoembryonic Ag Urine Color YELLOW Urine Appearance CLEAR Urine pH 5.5 Ur Specific [place] 1.010 Urine Protein NEG Urine Glucose (UA) NEG Urine Ketones 15 Urine Blood NEG Urine Nitrite NEG Ur Leukocyte Esterase NEG Stool Occult Blood COVID-19 ([facility]) COVID-19 Clin Com Assessment and Plan (1) Gastric out let obstruction: Status: Acute (2) Gastric mass: Status: Acute (3) Hypertension: Status: Acute Assessment and Plan: 81-year-old male with a past medical history of hypertension presented to the hospital with a chief complaint of abdominal pain.? Patient reported that of past few days he has been having abdominal discomfort and acid reflux symptoms.? But last night and yesterday he had leg increased abdominal pain not able to take anything p.o. had nausea and vomiting at home, denies any blood in the vomiting.? Denies any blood in the stool. CT scan noted to have gastric lesion, hepatic nodule, adrenal nodule. NG tube placed in the ER; decompression with improvement in pain 1. Gastric mass Discussed with GI will scope 08/19/21. NG tube removed secondary to patient's discomfort. Patient understands that if pain returns with clear liquids NG tube may have to be reinserted. He is agreeable to this plan. IV Protonix as ordered 2. HTN acceptable control on current therapies full code Lovenox Quality Stroke Does the patient have a stroke diagnosis?: No VTE Prior VTE?: No VTE Risk Level:: Medical - moderate - high VTE Device Contraindication: N/A - Device Ordered VTE Drug Contraindication: Treatment Not Indicated
[2021-08-16 20:22] VITALS: BP 130/60; PULSE 84; RESP 16; TEMP 36.9; O2SAT 97
[2021-08-16 23:26] VITALS: BP 121/65; PULSE 77; RESP 18; TEMP 36.9; O2SAT 95
[2021-08-17 03:52] VITALS: BP 118/63; PULSE 73; RESP 19; TEMP 36.7; O2SAT 96
[2021-08-17] MEDS: Dextrose 5 % and 0.45 % NaCl 1,000 ML 75 ML IVCONT (04:12)
[2021-08-17] MEDS: Pantoprazole Sodium 40 MG/10 ML VIAL IVPUSH (05:37)
[2021-08-17 06:15] LABS: MANUAL DIFF FLAG NO
[2021-08-17 06:23] LABS: Basophils Percent Auto 0.3 % (0-2); Eosinophils Absolute Auto 0.1 X10*3/uL (0.0-0.4); Eosinophils Percent Auto 0.5 % (0-4); Hematocrit 35.5 % (42.0-52.0); Hemoglobin 11.8 g/dl (14.0-18.0); Imm Gran Abs Auto 0.03 X10*3/uL (0.00-0.03); Imm Gran Pct Auto 0.3 % (0.0-0.4); Lymphocytes Percent Auto 11.2 % (20-40); Mean Corpuscular HGB Conc 33.2 g/dl (31.0-36.0); Mean Corpuscular Hemoglobin 30.9 pg (27.0-33.0); Mean Corpuscular Volume 92.9 fL (80.0-98.0); Mean Platelet Volume 11.5 fL (9.4-12.4); Monocytes Absolute Auto 1.2 X10*3/uL (0.1-1.2); Monocytes Percent Auto 12.9 % (2-11); Neutrophils Absolute Auto 6.9 x10*3/uL (2.0-8.3); Neutrophils Percent Auto 74.8 % (45-73); Platelet Count 297 X10*3/uL (160-400); Red Blood Count 3.82 X10*6/uL (4.60-5.80); Red Cell Distribution Width 12.4 % (11.0-16.0); White Blood Count 9.2 X10*3/uL (4.8-10.8)
[2021-08-17 06:50] LABS: Alanine Aminotransferase 19 U/L (0-40); Albumin Level 3.3 g/dL (3.5-5.0); Alkaline Phosphatase 66 U/L (39-117); Anion Gap 12 (12-20); Aspartate Amino Transferase 26 U/L (5-37); Bilirubin Total 0.9 mg/dL (0.0-1.0); Blood Urea Nitrogen 15 mg/dL (9-16); Calcium 8.1 mg/dL (8.4-10.2); Carbon Dioxide 26 mmol/L (22-29); Chloride 103 mmol/L (96-108); Creatinine Clr Calc Pharmacy 73.9; Estimated Glomerular Filt Rate > 60; Glucose Fasting 115 mg/dL (60-99); Potassium 3.6 mmol/L (3.3-5.1); Sodium 137 mmol/L (135-145); Total Protein 5.5 g/dL (6.5-8.0)
[2021-08-17 08:00] VITALS: BP 111/59; PULSE 55; RESP 18; TEMP 36.5; O2SAT 95
[2021-08-17] MEDS: amLODIPine Besylate 5 MG TABLET PO (08:35)
--- NOTE | 2021-08-17 10:44 | P.PNIM_ITS ---
Subjective Subjective Date of Service: 08/17/21 Interval History: did well overnight; tolerating clear liquids without abdominal pain or vom Review of Systems denies shortness of breath Denies chest pain Denies nausea vomiting diarrhea Denies abdominal pain Physical Exam Vital Signs: Vital Signs: Last Vital Signs Temp 97.7 F 08/17/21 08:00 Pulse 55 08/17/21 08:00 Resp 18 08/17/21 08:00 BP 111/59 L 08/17/21 08:00 Pulse Ox 95 08/17/21 08:00 Body Mass Index 20.3 Const: Other: awake alert oriented x3 no acute distress HENMT: Other: NG tube removed Resp: Other: clear to auscultation bilaterally no rales rhonch Cardio: Other: no S4; positive S1-S2; no S3 murmurs rubs or gallops GI: Other: soft nontender nondistended with normoactive bowel sounds Extrem: Other: no edema bilaterally Objective Data Active Medications Amlodipine Besylate (Amlodipine Besylate 5 Mg Tablet) 5 mg PO DAILY [facility]; Protocol Last Admin: 08/17/21 08:35 Dose: 5 mg Documented by: IRMA Hydromorphone HCl (Hydromorphone Hcl 0.5 Mg/0.5 Ml Syringe) 0.5 mg IVPUSH Q4H PRN; Protocol PRN Reason: Pain, Severe (Pain Scale 7-10) Dextrose/Sodium Chloride (D51/2ns) 1,000 mls @ 75 mls/hr IVCONT .[id number] [facility] Last Admin: 08/17/21 04:12 Dose: 75 mls/hr Documented by: VEE Melatonin (Melatonin 3 Mg Tablet) 6 mg PO BEDTIME PRN PRN Reason: Insomnia Ondansetron HCl (Ondansetron Hcl 4 Mg/2 Ml Vial) 4 mg IVPUSH Q8H PRN PRN Reason: Nausea and Vomiting Pantoprazole Sodium (Pantoprazole Sodium 40 Mg/10 Ml Vial) 40 mg IVPUSH DAILY@0630 [facility] Last Admin: 08/17/21 05:37 Dose: 40 mg Documented by: VEE Sodium Chloride (0.9 % Sodium Chloride Flush 3 Ml Syringe) 3 ml IVFLUSH QSHIFT [facility] Last Admin: 08/17/21 07:13 Dose: Not Given Documented by: IRMA Non-Admin Reason: IV Running Labs CBC & Chem 7: 08/17/21 06:02 08/17/21 05:47 Labs: Laboratory Results - last 24 hr 08/17/21 08/17/21 05:47 06:02 MCV 92.9 MCH 30.9 MCHC 33.2 RDW 12.4 Plt Count 297 MPV 11.5 Immature Gran % (Auto) 0.3 Neut % (Auto) 74.8 H Lymph % (Auto) 11.2 L [place] % (Auto) 12.9 H Eos % (Auto) 0.5 Baso % (Auto) 0.3 Lymph # (Auto) 1.0 L [place] # (Auto) 1.2 Eos # (Auto) 0.1 Baso # (Auto) 0.0 Abs Immat Gran (auto) 0.03 Absolute Neuts (auto) 6.9 Absolute Nucleated RBC 0.000 Nucleated RBC % (auto) 0.0 Anion Gap 12 Estim Creat Clear Calc 73.9 Estimated GFR > 60 Fasting Glucose 115 H Calcium 8.1 L D Total Bilirubin 0.9 AST 26 ALT 19 Alkaline Phosphatase 66 Total Protein 5.5 L D Albumin 3.3 L D Assessment and Plan (1) Gastric mass: Status: Acute (2) Hypertension: Status: Acute Assessment and Plan: 81-year-old male with a past medical history of hypertension presented to the hospital with a chief complaint of abdominal pain.? Patient reported that of past few days he has been having abdominal discomfort and acid reflux symptoms.? But last night and yesterday he had leg increased abdominal pain not able to take anything p.o. had nausea and vomiting at home, denies any blood in the vomiting.? Denies any blood in the stool. CT scan noted to have gastric lesion, hepatic nodule, adrenal nodule. 1. Gastric mass Discussed with GI will scope 08/19/21. NG tube removed .... tolerating clear liquids. If develops abdominal pain, will reinsert NGT 2. HTN acceptable control on current therapies full code Lovenox Quality Stroke Does the patient have a stroke diagnosis?: No VTE Prior VTE?: No VTE Risk Level:: Medical - moderate - high VTE Device Contraindication: N/A - Device Ordered VTE Drug Contraindication: Treatment Not Indicated
[2021-08-17 11:58] VITALS: BP 116/58; PULSE 77; RESP 18; TEMP 36.7; O2SAT 7
[2021-08-17 15:42] VITALS: BP 120/60; PULSE 74; RESP 17; TEMP 36.6; O2SAT 97
[2021-08-17] MEDS: 0.9 % Sodium Chloride Flush 3 ML SYRINGE IVFLUSH ×2 (15:49→21:50)
[2021-08-17] MEDS: Throat Lozenge, Medicated LOZENGE 1 LOZENGE MUCOUS MEM (15:49)
[2021-08-17 19:34] VITALS: BP 151/68; PULSE 78; RESP 17; TEMP 36.3; O2SAT 96
[2021-08-17 23:35] VITALS: BP 119/65; PULSE 72; RESP 16; TEMP 36.3; O2SAT 97
[2021-08-18 04:00] VITALS: BP 117/62; PULSE 71; RESP 18; TEMP 37.1; O2SAT 97
[2021-08-18 06:07] LABS: MANUAL DIFF FLAG NO
[2021-08-18] MEDS: Pantoprazole Sodium 40 MG/10 ML VIAL IVPUSH (06:12)
[2021-08-18 06:13] LABS: Basophils Percent Auto 0.4 % (0-2); Eosinophils Absolute Auto 0.1 X10*3/uL (0.0-0.4); Eosinophils Percent Auto 1.5 % (0-4); Hematocrit 34.1 % (42.0-52.0); Hemoglobin 11.2 g/dl (14.0-18.0); Imm Gran Abs Auto 0.03 X10*3/uL (0.00-0.03); Imm Gran Pct Auto 0.4 % (0.0-0.4); Lymphocytes Percent Auto 11.2 % (20-40); Mean Corpuscular HGB Conc 32.8 g/dl (31.0-36.0); Mean Corpuscular Hemoglobin 30.2 pg (27.0-33.0); Mean Corpuscular Volume 91.9 fL (80.0-98.0); Mean Platelet Volume 11.5 fL (9.4-12.4); Monocytes Absolute Auto 1.2 X10*3/uL (0.1-1.2); Monocytes Percent Auto 13.6 % (2-11); Neutrophils Absolute Auto 6.2 x10*3/uL (2.0-8.3); Neutrophils Percent Auto 72.9 % (45-73); Platelet Count 297 X10*3/uL (160-400); Red Blood Count 3.71 X10*6/uL (4.60-5.80); White Blood Count 8.5 X10*3/uL (4.8-10.8)
[2021-08-18 06:29] LABS: Alanine Aminotransferase 17 U/L (0-40); Albumin Level 3.1 g/dL (3.5-5.0); Alkaline Phosphatase 71 U/L (39-117); Anion Gap 12 (12-20); Aspartate Amino Transferase 18 U/L (5-37); Bilirubin Total 0.7 mg/dL (0.0-1.0); Blood Urea Nitrogen 13 mg/dL (9-16); Calcium 7.9 mg/dL (8.4-10.2); Carbon Dioxide 24 mmol/L (22-29); Chloride 104 mmol/L (96-108); Creatinine Clr Calc Pharmacy 76.8; Estimated Glomerular Filt Rate > 60; Glucose Fasting 95 mg/dL (60-99); Potassium 3.4 mmol/L (3.3-5.1); Sodium 137 mmol/L (135-145); Total Protein 5.3 g/dL (6.5-8.0)
[2021-08-18 08:00] VITALS: BP 103/63; PULSE 66; RESP 18; TEMP 36.3; O2SAT 97
[2021-08-18] MEDS: amLODIPine Besylate 5 MG TABLET PO (10:00)
[2021-08-18] MEDS: 0.9 % Sodium Chloride Flush 3 ML SYRINGE IVFLUSH ×2 (10:00→16:20)
--- NOTE | 2021-08-18 11:47 | HO.PM.IMPN ---
Subjective Subjective Date of Service: 08/18/21 Interval History: doing well with full liquids; no recurrence of abdominal pain. Review of Systems Denies chest pain Denies shortness of breath Denies nausea vomiting diarrhea Physical Exam Vital Signs: Vital Signs: Last Vital Signs Temp 97.4 F 08/18/21 08:00 Pulse 66 08/18/21 08:00 Resp 18 08/18/21 08:00 BP 103/63 08/18/21 08:00 Pulse Ox 97 08/18/21 08:00 Body Mass Index 20.3 Const: Other: awake alert oriented x3 no acute distress HENMT: Other: NG tube removed Resp: Other: clear to auscultation bilaterally no rales rhonch Cardio: Other: no S4; positive S1-S2; no S3 murmurs rubs or gallops GI: Other: soft nontender nondistended with normoactive bowel sounds Extrem: Other: no edema bilaterally Objective Data Active Medications Amlodipine Besylate (Amlodipine Besylate 5 Mg Tablet) 5 mg PO DAILY [facility]; Protocol Last Admin: 08/18/21 10:00 Dose: 5 mg Documented by: IRMA Benzocaine (Throat Lozenge, Medicated Lozenge) 1 lozenge MUCOUS MEM Q2H PRN PRN Reason: Sore Throat Last Admin: 08/17/21 15:49 Dose: 1 lozenge Documented by: IRMA Hydromorphone HCl (Hydromorphone Hcl 0.5 Mg/0.5 Ml Syringe) 0.5 mg IVPUSH Q4H PRN; Protocol PRN Reason: Pain, Severe (Pain Scale 7-10) Melatonin (Melatonin 3 Mg Tablet) 6 mg PO BEDTIME PRN PRN Reason: Insomnia Ondansetron HCl (Ondansetron Hcl 4 Mg/2 Ml Vial) 4 mg IVPUSH Q8H PRN PRN Reason: Nausea and Vomiting Pantoprazole Sodium (Pantoprazole Sodium 40 Mg/10 Ml Vial) 40 mg IVPUSH DAILY@0630 [facility] Last Admin: 08/18/21 06:12 Dose: 40 mg Documented by: ODRISM Sodium Chloride (0.9 % Sodium Chloride Flush 3 Ml Syringe) 3 ml IVFLUSH QSHIFT [facility] Last Admin: 08/18/21 10:00 Dose: 3 ml Documented by: HO.[email or web address] Labs CBC & Chem 7: 08/18/21 05:48 08/18/21 05:48 Labs: Laboratory Results - last 24 hr 08/18/21 08/18/21 05:48 05:48 MCV 91.9 MCH 30.2 MCHC 32.8 RDW 12.0 Plt Count 297 MPV 11.5 Immature Gran % (Auto) 0.4 Neut % (Auto) 72.9 Lymph % (Auto) 11.2 L [place] % (Auto) 13.6 H Eos % (Auto) 1.5 Baso % (Auto) 0.4 Lymph # (Auto) 1.0 L [place] # (Auto) 1.2 Eos # (Auto) 0.1 Baso # (Auto) 0.0 Abs Immat Gran (auto) 0.03 Absolute Neuts (auto) 6.2 Absolute Nucleated RBC 0.000 Nucleated RBC % (auto) 0.0 Anion Gap 12 Estim Creat Clear Calc 76.8 Estimated GFR > 60 Fasting Glucose 95 Calcium 7.9 L Total Bilirubin 0.7 AST 18 ALT 17 Alkaline Phosphatase 71 Total Protein 5.3 L Albumin 3.1 L Assessment and Plan (1) Gastric mass: Status: Acute (2) Hypertension: Status: Acute Assessment and Plan: 81-year-old male with a past medical history of hypertension presented to the hospital with a chief complaint of abdominal pain.? Patient reported that of past few days he has been having abdominal discomfort and acid reflux symptoms.? But last night and yesterday he had leg increased abdominal pain not able to take anything p.o. had nausea and vomiting at home, denies any blood in the vomiting.? Denies any blood in the stool.CT scan noted to have gastric lesion, hepatic nodule, adrenal nodule. Has been doing well on full liquid; no indication to reinsert NG tube at this time 1. Gastric mass Discussed with GI will scope 08/19/21. NPO after midnoc. If develops abdominal pain, will reinsert NGT Will D/C Lovenox(had today). Restart as indicated after BX's 2. HTN acceptable control on current therapies full code Lovenox Quality Stroke Does the patient have a stroke diagnosis?: No VTE Prior VTE?: No VTE Risk Level:: Medical - moderate - high VTE Device Contraindication: N/A - Device Ordered VTE Drug Contraindication: Treatment Not Indicated
[2021-08-18 11:51] VITALS: BP 133/70; PULSE 77; RESP 18; TEMP 36.4; O2SAT 98
[2021-08-18 15:32] VITALS: BP 121/63; PULSE 74; RESP 17; TEMP 36.6; O2SAT 98
[2021-08-18 19:06] VITALS: BP 124/58; PULSE 64; RESP 17; TEMP 36.5; O2SAT 97
[2021-08-18 23:40] VITALS: BP 127/62; PULSE 74; RESP 16; TEMP 36.5; O2SAT 94
[2021-08-19] VITALS (11 sets, daily range): BP systolic 98–160; BP diastolic 46–73; PULSE 65–96; RESP 10–20; TEMP 36.2–37.2; O2SAT 92–99; BMI 20.3
[2021-08-19 04:38] LABS: MANUAL DIFF FLAG NO
[2021-08-19 04:41] LABS: Basophils Percent Auto 0.1 % (0-2); Eosinophils Absolute Auto 0.2 X10*3/uL (0.0-0.4); Hematocrit 32.1 % (42.0-52.0); Hemoglobin 10.8 g/dl (14.0-18.0); Imm Gran Abs Auto 0.02 X10*3/uL (0.00-0.03); Imm Gran Pct Auto 0.3 % (0.0-0.4); Lymphocytes Absolute Auto 1.2 X10*3/uL (1.2-4.9); Lymphocytes Percent Auto 16.6 % (20-40); Mean Corpuscular HGB Conc 33.6 g/dl (31.0-36.0); Mean Corpuscular Hemoglobin 30.9 pg (27.0-33.0); Mean Platelet Volume 11.5 fL (9.4-12.4); Monocytes Percent Auto 12.8 % (2-11); Neutrophils Absolute Auto 5.1 x10*3/uL (2.0-8.3); Neutrophils Percent Auto 68.2 % (45-73); Platelet Count 299 X10*3/uL (160-400); Red Blood Count 3.49 X10*6/uL (4.60-5.80); White Blood Count 7.4 X10*3/uL (4.8-10.8)
[2021-08-19 05:04] LABS: Alanine Aminotransferase 15 U/L (0-40); Albumin Level 3.2 g/dL (3.5-5.0); Alkaline Phosphatase 85 U/L (39-117); Anion Gap 13 (12-20); Aspartate Amino Transferase 15 U/L (5-37); Bilirubin Total 0.5 mg/dL (0.0-1.0); Blood Urea Nitrogen 12 mg/dL (9-16); Calcium 7.9 mg/dL (8.4-10.2); Carbon Dioxide 24 mmol/L (22-29); Chloride 103 mmol/L (96-108); Creatinine Clr Calc Pharmacy 74.8; Estimated Glomerular Filt Rate > 60; Glucose Fasting 103 mg/dL (60-99); Potassium 3.4 mmol/L (3.3-5.1); Sodium 137 mmol/L (135-145); Total Protein 5.4 g/dL (6.5-8.0)
[2021-08-19] MEDS: Pantoprazole Sodium 40 MG/10 ML VIAL IVPUSH (06:09)
[2021-08-19] MEDS: 0.9 % Sodium Chloride Flush 3 ML SYRINGE IVFLUSH ×2 (07:27→17:16)
[2021-08-19 12:06] LABS: Alpha Fetoprotein 4.2 ng/mL (<6.1)
--- NOTE | 2021-08-19 14:03 | P.DS_ITS ---
DS: Providers Provider Date of Service: 08/21/21 <MEMO Pop - Last Filed: 08/21/21 13:05> Date of admission: 08/15/21 22:22 <Patricia Reza NP - Last Filed: 08/19/21 14:14> Date of discharge: 08/21/21 <MEMO Pop - Last Filed: 08/21/21 13:05> Primary care physician: Unknown Physician <Patricia Reza NP - Last Filed: 08/19/21 14:14> Consults: 08/15/21 22:21 Consult to Gastroenterology Routine Consulting Provider: Jennifer Bro Reason for consultation: gastric lesion; liver lesion Consult to Hematology / Oncology Routine Consulting Provider: Tiara Conroy Reason for consultation: Gastric lesion; liver lesion; Adrenal Nodule <Patricia Reza NP - Last Filed: 08/19/21 14:14> Attending physician on discharge: Jatinder Kuhn <MEMO Pop - Last Filed: 08/21/21 13:05> Discharging clinician: Leona Colón <MEMO Pop - Last Filed: 08/21/21 13:05> DS: Diagnosis Discharge Diagnosis (1) Gastric mass: Status: Acute <Patricia Reza NP - Last Filed: 08/19/21 14:14> (2) Hypertension: Status: Acute <Patricia Reza NP - Last Filed: 08/19/21 14:14> DS: Summary Hospital Course Hospital Course: From H&P on day of admission 81-year-old male with a past medical history of hypertension presented to the hospital with a chief complaint of abdominal pain.?Patient reported that of past few days he has been having abdominal discomfort and acid reflux symptoms.? But last night and yesterday he had leg increased abdominal pain not able to take anything p.o. had nausea and vomiting at home, denies any blood in the vomiting.? Denies any blood in the stool.?Denies any chest pain palpitations lightheadedness or dizziness.?Denies any fever chills cough.?Denies any urinary symptoms. Review of all other systems is negative except mentioned above.ER course: Per ER team on CT scan noted to have gastric lesion, hepatic nodule, adrenal nodule; discussed with general surgery who recommended admission to the medicine service.? ER team also notified Gastroenterology for possible EGD.? Admitted for further management. Gastric mass. Shown on abdominal CT upon presentation to the ER. 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 There may be some adrenal involvement as well. 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 He was seen by both general surgery and oncology. General surgery recommended likely partial gastrectomy once bipsy results have returned. Oncology has recommended PET scan for staging and likely preoperative chemotherapy. At this time, the patient is able to tolerate liquids, he will be discharged home with plans for close follow-up with of Oncology and surgery. This was discussed with the patient in detail and he is in agreement with plan. Biopsy results are pending at the time of discharge. <Patricia Reza NP - Last Filed: 08/19/21 14:14> Time Spent with Patient Time attestation: Total time spent providing and/or coordinating discharge services: <Patricia Reza NP - Last Filed: 08/19/21 14:14> Discharge coordination time: Greater than 30 minutes <MEMO Pop - Last Filed: 08/21/21 13:05> Quality: Stroke Does the patient have a stroke diagnosis?: No <MEMO Pop - Last Filed: 08/21/21 13:05> Physical Exam Vital Signs: Vital Signs: Last Vital Signs Temp 97.8 F 08/19/21 11:26 Pulse 66 08/19/21 11:26 Resp 18 08/19/21 11:26 BP 140/72 H 08/19/21 11:26 Pulse Ox 97 08/19/21 11:26 Body Mass Index 20.3 <Patricia Reza NP - Last Filed: 08/19/21 14:14> Appearing in no acute distress head is normocephalic atraumatic eyes pupils are PERRLA sclera is anicteric mouth throat mucous membranes are intact and moist neck is supple no lymphadenopathy, no JVD noted lung sounds are clear to auscultation heart regular rate rhythm, clear S1, S2 positive bowel sounds, abdomen is soft, nontender neuro patient is alert x3, no focal deficits <Patricia Reza NP - Last Filed: 08/19/21 14:14> Const: Nutritional Appearance: thin <MEMO Pop - Last Filed: 08/21/21 13:05> Orientation/consciousness: patient oriented x3 <MEMO Pop - Last Filed: 08/21/21 13:05> HENMT: Head: Yes normocephalic and Yes atraumatic <MEMO Pop - Last Filed: 08/21/21 13:05> Eyes: Sclerae: sclerae normal <MEMO Pop - Last Filed: 08/21/21 13:05> Resp: Effort & Inspection: normal respiratory effort and no respiratory distress <MEMO Pop - Last Filed: 08/21/21 13:05> Cardio: Rate: regular rate <MEMO Pop - Last Filed: 08/21/21 13:05> Rhythm: regular rhythm <MEMO Pop - Last Filed: 08/21/21 13:05> GI: Palpation (GI): Soft to palpation and nontender <MEMO Pop - Last Filed: 08/21/21 13:05> Neuro: General: patient oriented x3 <MEMO Pop - Last Filed: 08/21/21 13:05> Cranial nerves: Yes CN's II-XII intact bilaterally and Yes Bilaterally intact EOM present <MEMO Pop - Last Filed: 08/21/21 13:05> DS: Data Data Completed and Pending Labs on day of discharge: Laboratory Results - last 24 hr 08/15/21 08/19/21 08/19/21 19:19 03:58 03:58 WBC 7.4 RBC 3.49 L Hgb 10.8 L Hct 32.1 L MCV 92.0 MCH 30.9 MCHC 33.6 RDW 12.0 Plt Count 299 MPV 11.5 Immature Gran % (Auto) 0.3 Neut % (Auto) 68.2 Lymph % (Auto) 16.6 L [place] % (Auto) 12.8 H Eos % (Auto) 2.0 Baso % (Auto) 0.1 Lymph # (Auto) 1.2 [place] # (Auto) 1.0 Eos # (Auto) 0.2 Baso # (Auto) 0.0 Abs Immat Gran (auto) 0.02 Absolute Neuts (auto) 5.1 Absolute Nucleated RBC 0.000 Nucleated RBC % (auto) 0.0 Sodium 137 Potassium 3.4 Chloride 103 Carbon Dioxide 24 Anion Gap 13 BUN 12 Creatinine 0.77 Estim Creat Clear Calc 74.8 Estimated GFR > 60 Fasting Glucose 103 H Calcium 7.9 L Total Bilirubin 0.5 AST 15 ALT 15 Alkaline Phosphatase 85 Total Protein 5.4 L Albumin 3.2 L Alpha Fetoprotein 4.2 <Patircia Reza NP - Last Filed: 08/19/21 14:14> Discharge Plan Discharge Patient Disposition: Home, Self-Care <Patricia Reza NP - Last Filed: 08/19/21 14:14> Discharge Diagnosis: Gastric mass <Patricia Reza NP - Last Filed: 08/19/21 14:14> Gastric mass <MEMO Pop - Last Filed: 08/21/21 13:05> Gastric mass <Jatinder Kuhn MD - Last Filed: 08/28/21 08:41> Referrals: Tiara Conroy MD [Physician] - 1 Week Alonso Brush MD [Physician] - 1 Week Physician,Saida Hopkins [Physician] - 1 Week <Patricia Reza NP - Last Filed: 08/19/21 14:14> Discharge Medications: New omeprazole magnesium 10 mg susp,delayed release for recon 20 mg PO DAILY Qty: 30 RF: 0 Continued amlodipine 5 mg tablet 5 mg PO DAILY Qty: 90 RF: 4 Discontinued hydrochlorothiazide 25 mg tablet 25 mg PO DAILY Qty: 90 RF: 4 <Patricia Reza NP - Last Filed: 08/19/21 14:14> Diet: other <Patricia Reza NP - Last Filed: 08/19/21 14:14> other <MEMO Pop - Last Filed: 08/21/21 13:05> other <Jatinder Kuhn MD - Last Filed: 08/28/21 08:41> Activity on Discharge: As tolerated <Patricia Reza NP - Last Filed: 08/19/21 14:14> As tolerated <MEMO Pop Last Filed: 08/21/21 13:05> As tolerated <Jatinder Kuhn MD - Last Filed: 08/28/21 08:41> Stand Alone Forms: Patient Portal Discharge page <Patricia Reza NP - Last Filed: 08/19/21 14:14> Care Plan Goals: follow-up for gastric mass <Patricia Reza NP - Last Filed: 08/19/21 14:14> 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 Poole you have been started on a new medication called omeprazole Follow a liquid diet return to the hospital if you are unable to tolerate liquids <Patricia Reza NP - Last Filed: 08/19/21 14:14> Assessment: see discharge summary <Patricia Reza NP - Last Filed: 08/19/21 14:14>
--- NOTE | 2021-08-19 14:16 | P.CONAN_ITS ---
[facility] Active Problems Active Problems: All Active Problems (Updated 08/16/21 @ 12:12 by Jeffrey Powell MD) Gastric out let obstruction (Acute) Gastric mass (Acute) Adult general medical exam (Acute) Shoulder pain (Acute) Skin lesion (Acute) Hypertension (Acute) Past Medical History Medical History Hypertension Family History Family History Father Past heart attack Mother Past heart attack Family history of problems with anesthesia: No Surgical History Surgical History History of appendectomy History of Problems with Anesthesia: No Social History Social History Household Members: None Housing: Apartment Do you presently have visiting nurse or other home services: No Alcohol intake: unknown Patient Tobacco Use Status: Former Tobacco user Quit Date: quit 26 yr ago Tobacco use type: Cigarette Years Smoked: 30 service: Yes Current occupational status: retired [employer] Allergies Allergy/AdvReac Type Severity Reaction Status Date / Time No Known Allergies Allergy Verified 07/26/21 10:51 [No Known Allergies*] Active Medications: Current Medications Amlodipine Besylate (Amlodipine Besylate 5 Mg Tablet) 5 mg PO DAILY [facility]; Protocol Last Admin: 08/19/21 11:04 Dose: Not Given Documented by: Benzocaine (Throat Lozenge, Medicated Lozenge) 1 lozenge MUCOUS MEM Q2H PRN PRN Reason: Sore Throat Last Admin: 08/17/21 15:49 Dose: 1 lozenge Documented by: Hydromorphone HCl (Hydromorphone Hcl 0.5 Mg/0.5 Ml Syringe) 0.5 mg IVPUSH Q4H PRN; Protocol PRN Reason: Pain, Severe (Pain Scale 7-10) Lactated Ringer's (Lr) 1,000 mls @ 100 mls/hr IVCONT .Q10H [facility] Melatonin (Melatonin 3 Mg Tablet) 6 mg PO BEDTIME PRN PRN Reason: Insomnia Ondansetron HCl (Ondansetron Hcl 4 Mg/2 Ml Vial) 4 mg IVPUSH Q8H PRN PRN Reason: Nausea and Vomiting Sodium Chloride (0.9 % Sodium Chloride Flush 3 Ml Syringe) 3 ml IVFLUSH QSHIFT [facility] Last Admin: 08/19/21 07:27 Dose: 3 ml Documented by: Exam Exam Date and Time: August 19, 2021 1416 Height,Weight and Vital Signs: Height 6 ft Weight 68.039 kg Last Vital Signs Temp 97.8 F 08/19/21 11:26 Pulse 66 08/19/21 11:26 Resp 18 08/19/21 11:26 BP 140/72 H 08/19/21 11:26 Pulse Ox 97 08/19/21 11:26 Pertinent Lab Results Pertinent Lab Results: Laboratory Tests 08/15/21 08/15/21 08/15/21 19:14 19:19 19:19 WBC 9.2 RBC 4.11 L Hgb 13.1 L Hct 37.8 L MCV 92.0 MCH 31.9 MCHC 34.7 RDW 12.5 Plt Count 361 MPV 10.9 Immature Gran % (Auto) 0.2 Neut % (Auto) 84.0 H Lymph % (Auto) 7.5 L [place] % (Auto) 8.0 Eos % (Auto) 0.0 Baso % (Auto) 0.3 Lymph # (Auto) 0.7 L [place] # (Auto) 0.7 Eos # (Auto) 0.0 Baso # (Auto) 0.0 Abs Immat Gran (auto) 0.02 Absolute Neuts (auto) 7.7 Absolute Nucleated RBC 0.000 Nucleated RBC % (auto) 0.0 Sodium 139 Potassium 3.3 Chloride 102 Carbon Dioxide 27 Anion Gap 13 BUN 17 H Creatinine 1.06 Estim Creat Clear Calc 54.3 Estimated GFR > 60 Random Glucose 119 H Fasting Glucose Lactic Acid Calcium 9.8 Total Bilirubin 0.6 AST 22 ALT 14 Alkaline Phosphatase 68 Troponin I High Sens Total Protein 7.1 Albumin 4.4 Lipase 58 Alpha Fetoprotein Carcinoembryonic Ag 61.90 Urine Color Urine Appearance Urine pH Ur Specific Needles Urine Protein Urine Glucose (UA) Urine Ketones Urine Blood Urine Nitrite Ur Leukocyte Esterase Stool Occult Blood NEGATIVE COVID-19 ([facility]) COVID-19 Clin Com 08/15/21 08/15/21 08/15/21 19:19 19:19 19:19 WBC RBC Hgb Hct MCV MCH MCHC RDW Plt Count MPV Immature Gran % (Auto) Neut % (Auto) Lymph % (Auto) [place] % (Auto) Eos % (Auto) Baso % (Auto) Lymph # (Auto) [place] # (Auto) Eos # (Auto) Baso # (Auto) Abs Immat Gran (auto) Absolute Neuts (auto) Absolute Nucleated RBC Nucleated RBC % (auto) Sodium Potassium Chloride Carbon Dioxide Anion Gap BUN Creatinine Estim Creat Clear Calc Estimated GFR Random Glucose Fasting Glucose Lactic Acid 1.3 Calcium Total Bilirubin AST ALT Alkaline Phosphatase Troponin I High Sens 5.3 Total Protein Albumin Lipase Alpha Fetoprotein 4.2 Carcinoembryonic Ag Urine Color Urine Appearance Urine pH Ur Specific Needles Urine Protein Urine Glucose (UA) Urine Ketones Urine Blood Urine Nitrite Ur Leukocyte Esterase Stool Occult Blood COVID-19 ([facility]) COVID-[place] 08/15/21 08/15/21 08/16/21 22:12 22:40 05:14 WBC 9.6 RBC 4.04 L Hgb 12.5 L Hct 37.6 L MCV 93.1 MCH 30.9 MCHC 33.2 RDW 12.6 Plt Count 333 MPV 11.4 Immature Gran % (Auto) 0.3 Neut % (Auto) 76.0 H Lymph % (Auto) 11.2 L [place] % (Auto) 12.1 H Eos % (Auto) 0.1 Baso % (Auto) 0.3 Lymph # (Auto) 1.1 L [place] # (Auto) 1.2 Eos # (Auto) 0.0 Baso # (Auto) 0.0 Abs Immat Gran (auto) 0.03 Absolute Neuts (auto) 7.3 Absolute Nucleated RBC 0.000 Nucleated RBC % (auto) 0.0 Sodium Potassium Chloride Carbon Dioxide Anion Gap BUN Creatinine Estim Creat Clear Calc Estimated GFR Random Glucose Fasting Glucose Lactic Acid Calcium Total Bilirubin AST ALT Alkaline Phosphatase Troponin I High Sens Total Protein Albumin Lipase Alpha Fetoprotein Carcinoembryonic Ag Urine Color YELLOW Urine Appearance CLEAR Urine pH 5.5 Ur Specific Needles 1.010 Urine Protein NEG Urine Glucose (UA) NEG Urine Ketones 15 Urine Blood NEG Urine Nitrite NEG Ur Leukocyte Esterase NEG Stool Occult Blood COVID-19 ([facility]) Negative COVID-19 Clin Com See Note 08/16/21 08/17/21 08/17/21 05:14 05:47 06:02 WBC 9.2 RBC 3.82 L Hgb 11.8 L Hct 35.5 L MCV 92.9 MCH 30.9 MCHC 33.2 RDW 12.4 Plt Count 297 MPV 11.5 Immature Gran % (Auto) 0.3 Neut % (Auto) 74.8 H Lymph % (Auto) 11.2 L [place] % (Auto) 12.9 H Eos % (Auto) 0.5 Baso % (Auto) 0.3 Lymph # (Auto) 1.0 L [place] # (Auto) 1.2 Eos # (Auto) 0.1 Baso # (Auto) 0.0 Abs Immat Gran (auto) 0.03 Absolute Neuts (auto) 6.9 Absolute Nucleated RBC 0.000 Nucleated RBC % (auto) 0.0 Sodium 139 137 Potassium 3.7 3.6 Chloride 104 103 Carbon Dioxide 26 26 Anion Gap 13 12 BUN 16 15 Creatinine 0.85 0.78 Estim Creat Clear Calc 67.8 73.9 Estimated GFR > 60 > 60 Random Glucose 118 H Fasting Glucose 115 H Lactic Acid Calcium 9.0 D 8.1 L D Total Bilirubin 0.9 AST 26 ALT 19 Alkaline Phosphatase 66 Troponin I High Sens Total Protein 5.5 L D Albumin 3.3 L D Lipase Alpha Fetoprotein Carcinoembryonic Ag Urine Color Urine Appearance Urine pH Ur Specific Needles Urine Protein Urine Glucose (UA) Urine Ketones Urine Blood Urine Nitrite Ur Leukocyte Esterase Stool Occult Blood COVID-19 ([facility]) COVID-19 Clin Com 08/18/21 08/18/21 08/19/21 05:48 05:48 03:58 WBC 8.5 7.4 RBC 3.71 L 3.49 L Hgb 11.2 L 10.8 L Hct 34.1 L 32.1 L MCV 91.9 92.0 MCH 30.2 30.9 MCHC 32.8 33.6 RDW 12.0 12.0 Plt Count 297 299 MPV 11.5 11.5 Immature Gran % (Auto) 0.4 0.3 Neut % (Auto) 72.9 68.2 Lymph % (Auto) 11.2 L 16.6 L [place] % (Auto) 13.6 H 12.8 H Eos % (Auto) 1.5 2.0 Baso % (Auto) 0.4 0.1 Lymph # (Auto) 1.0 L 1.2 [place] # (Auto) 1.2 1.0 Eos # (Auto) 0.1 0.2 Baso # (Auto) 0.0 0.0 Abs Immat Gran (auto) 0.03 0.02 Absolute Neuts (auto) 6.2 5.1 Absolute Nucleated RBC 0.000 0.000 Nucleated RBC % (auto) 0.0 0.0 Sodium 137 Potassium 3.4 Chloride 104 Carbon Dioxide 24 Anion Gap 12 BUN 13 Creatinine 0.75 Estim Creat Clear Calc 76.8 Estimated GFR > 60 Random Glucose Fasting Glucose 95 Lactic Acid Calcium 7.9 L Total Bilirubin 0.7 AST 18 ALT 17 Alkaline Phosphatase 71 Troponin I High Sens Total Protein 5.3 L Albumin 3.1 L Lipase Alpha Fetoprotein Carcinoembryonic Ag Urine Color Urine Appearance Urine pH Ur Specific Needles Urine Protein Urine Glucose (UA) Urine Ketones Urine Blood Urine Nitrite Ur Leukocyte Esterase Stool Occult Blood COVID-19 ([facility]) COVID-19 [email or web address] Com 08/19/21 03:58 WBC RBC Hgb Hct MCV MCH MCHC RDW Plt Count MPV Immature Gran % (Auto) Neut % (Auto) Lymph % (Auto) [place] % (Auto) Eos % (Auto) Baso % (Auto) Lymph # (Auto) [place] # (Auto) Eos # (Auto) Baso # (Auto) Abs Immat Gran (auto) Absolute Neuts (auto) Absolute Nucleated RBC Nucleated RBC % (auto) Sodium 137 Potassium 3.4 Chloride 103 Carbon Dioxide 24 Anion Gap 13 BUN 12 Creatinine 0.77 Estim Creat Clear Calc 74.8 Estimated GFR > 60 Random Glucose Fasting Glucose 103 H Lactic Acid Calcium 7.9 L Total Bilirubin 0.5 AST 15 ALT 15 Alkaline Phosphatase 85 Troponin I High Sens Total Protein 5.4 L Albumin 3.2 L Lipase Alpha Fetoprotein Carcinoembryonic Ag Urine Color Urine Appearance Urine pH Ur Specific Needles Urine Protein Urine Glucose (UA) Urine Ketones Urine Blood Urine Nitrite Ur Leukocyte Esterase Stool Occult Blood COVID-19 ([facility]) COVID-19 Clin Com Airway Mallampati Class: II TM Dist: >3cm Neck ROM: Full Partial: Upper (Permanent) Heart: rrr Lungs: cta Assessment and Plan Assessment Anesthesia Assessment: Anesthesia Plan Discussed and Chart Reviewed Final Anesthetic Review Family History of Problems with Anesthesia: No History of Problems with Anesthesia: No NPO: Yes ASA Class: III Final Preanesthetic Review: No Changes in Pt Med Stat, Meds/Allgs Chart Reviewed and Consent Obtained/Reviewed Patient Risk: Intermediate Procedure Risk: Intermediate Anesthetic Plan Anesthetic Plan: MAC: Disposition: Standard PACU
[2021-08-19] MEDS: Lactated Ringers 1,000 ML 100 ML IVCONT (14:18)
--- NOTE | 2021-08-19 14:56 | MHC.SHP ---
Pre-Procedural Eval Section A Date of Service: 08/19/21 The patient is an INPATIENT: Yes The History & Physical has been completed within 30 days and I have reviewed it.: Yes Section B Chief Complaint: abd pain vomiting Allergies: Allergies Allergy/AdvReac Type Severity Reaction Status Date / Time No Known Allergies Allergy Verified 07/26/21 10:51 [No Known Allergies*] Plan Diagnosis/Plan: Unchanged I have reviewed the history and physical and performed a pertinent physical examination on my patient. No changes have occurred unless specified.
--- NOTE | 2021-08-19 15:32 | P.BOP_ITS ---
Brief Operative Note Date of Service: 08/19/21 Pre-op diagnosis: gastric mass Post-op diagnosis: same Procedure: see op note Surgeon: Jennifer Bro MD Anesthesia: MAC Was an [employer] used for this Procedure?: No Estimated blood loss (mL): 0 Condition: stable Disposition: PACU
--- NOTE | 2021-08-19 15:33 | W.PM.OPN ---
Operative Note Operative Note Date of Service: 08/19/21 Narrative: Procedure Description: EGD FLEXIBLE TRANSORAL UPPER GASTROINTESTINAL ENDOSCOPY UPPER ENDOSCOPY Consent: Indications for the procedure and potential complications of bleeding, perforation, reaction to medications and missed diagnosis were discussed with the patient and informed consent was obtained. Instrument: Olympus GIF H 190 J mid size upper endoscope Monitoring: Vital signs and clinical assessment, continuous EKG monitoring, Pulse oximetry, Carbon Dioxide monitoring and blood pressure monitoring were done throughout the procedure. Procedure: The patient was placed in the left lateral decubitis position and pre-procedure medications were administered and a bite block was placed. The endoscope was inserted into the mouth and advanced under direct vision to the third part of duodenum. A careful inspection was made as the upper endoscope was withdrawn including a retroflexed examination of the proximal stomach; Findings and interventions are described below. Findings: Larynx:normal Esophagus: GE junction at 38 cm, diaphragm hiatus at 38 cm, no varices or esophagitis. Stomach: excavated uclerated mass at the gastric outlet, bx taken, was able to manipulate the scope thru the strictured mass. small amount of liquid and retained food noted. Duodenum: Normal bulb and descending duodenum, bx taken Intervention: Biopsies as noted above Impression/Findings: gastric mass PLAN: await bx, keep on clears, supplement nutrition with TPn or PPN surgical consult for possible partial gastrectomy and oncology consult low dose PPi to prevent esophagitis
--- NOTE | 2021-08-19 15:38 | MHC.CM.PN ---
Addendum entered by Gema Julien 08/20/21 08:12: PATIENT DID NOT LEAVE LAST NIGHT PLAN IS START PPI AND CLEAR LIQUIDS. Original Note: PATIENT IS DISCHARGED HOME - SELF CARE. IMM 08/18 IN CHART. RN AWARE OF PLAN.
--- NOTE | 2021-08-19 16:41 | HO.PM.IMPN ---
Subjective Subjective Date of Service: 08/19/21 <Patricia Reza NP - Last Filed: 08/19/21 16:46> 08/23/21 <Jatinder Kuhn MD - Last Filed: 08/23/21 08:31> Review of Systems Follow-up gastric mass Improvement in abdominal pain Some nausea Denies chest pain, vomiting, diarrhea All other systems are reviewed and are negative <Patricia Reza NP - Last Filed: 08/19/21 16:46> Physical Exam Vital Signs: Vital Signs: Last Vital Signs Temp 97.6 F 08/19/21 16:38 Pulse 65 08/19/21 16:38 Resp 18 08/19/21 16:38 BP 148/71 H 08/19/21 16:38 Pulse Ox 96 08/19/21 16:38 Body Mass Index 20.3 <Patricia Reza NP - Last Filed: 08/19/21 16:46> Appearing in no acute distress lung sounds are clear to auscultation heart regular rate rhythm, clear S1, S2 positive bowel sounds, abdomen is soft, nontender neuro patient is alert x3, no focal deficits <Patricia Reza NP - Last Filed: 08/19/21 16:46> Objective Data Active Medications Amlodipine Besylate (Amlodipine Besylate 5 Mg Tablet) 5 mg PO DAILY TANO; Protocol Last Admin: 08/19/21 11:04 Dose: Not Given Documented by: MARIA LUZ Non-Admin Reason: NPO Benzocaine (Throat Lozenge, Medicated Lozenge) 1 lozenge MUCOUS MEM Q2H PRN PRN Reason: Sore Throat Last Admin: 08/17/21 15:49 Dose: 1 lozenge Documented by: IRMA Hydromorphone HCl (Hydromorphone Hcl 0.5 Mg/0.5 Ml Syringe) 0.5 mg IVPUSH Q4H PRN; Protocol PRN Reason: Pain, Severe (Pain Scale 7-10) Lactated Ringer's (Lr) 1,000 mls @ 100 mls/hr IVCONT .Q10H TANO Last Admin: 08/19/21 14:18 Dose: 100 mls/hr Documented by: MATEUSZ Melatonin (Melatonin 3 Mg Tablet) 6 mg PO BEDTIME PRN PRN Reason: Insomnia Ondansetron HCl (Ondansetron Hcl 4 Mg/2 Ml Vial) 4 mg IVPUSH Q8H PRN PRN Reason: Nausea and Vomiting Sodium Chloride (0.9 % Sodium Chloride Flush 3 Ml Syringe) 3 ml IVFLUSH [facility] Last Admin: 08/19/21 07:27 Dose: 3 ml Documented by: ZA <Patricia Reza NP - Last Filed: 08/19/21 16:46> Labs CBC & Chem 7: : 08/22/21 05:23 08/22/21 05:23 <Patricia Reza NP - Last Filed: 08/19/21 16:46> Labs: Laboratory Results - last 24 hr 08/15/21 08/19/21 08/19/21 19:19 03:58 03:58 MCV 92.0 MCH 30.9 MCHC 33.6 RDW 12.0 Plt Count 299 MPV 11.5 Immature Gran % (Auto) 0.3 Neut % (Auto) 68.2 Lymph % (Auto) 16.6 L [place] % (Auto) 12.8 H Eos % (Auto) 2.0 Baso % (Auto) 0.1 Lymph # (Auto) 1.2 [place] # (Auto) 1.0 Eos # (Auto) 0.2 Baso # (Auto) 0.0 Abs Immat Gran (auto) 0.02 Absolute Neuts (auto) 5.1 Absolute Nucleated RBC 0.000 Nucleated RBC % (auto) 0.0 Anion Gap 13 Estim Creat Clear Calc 74.8 Estimated GFR > 60 Fasting Glucose 103 H Calcium 7.9 L Total Bilirubin 0.5 AST 15 ALT 15 Alkaline Phosphatase 85 Total Protein 5.4 L Albumin 3.2 L Alpha Fetoprotein 4.2 <Patricia Reza NP - Last Filed: 08/19/21 16:46> Assessment and Plan (1) Gastric out let obstruction: Status: Acute <Patricia Reza NP - Last Filed: 08/19/21 16:46> (2) Gastric mass: Status: Acute <Patricia Reza NP - Last Filed: 08/19/21 16:46> (3) Hypertension: Status: Acute <Patricia Reza NP - Last Filed: 08/19/21 16:46> Assessment and Plan: 81-year-old male with a past medical history of hypertension presented to the hospital with a chief complaint of abdominal pain.? Patient reported that of past few days he has been having abdominal discomfort and acid reflux symptoms.? But last night and yesterday he had leg increased abdominal pain not able to take anything p.o. had nausea and vomiting at home, denies any blood in the vomiting.? Denies any blood in the stool.CT scan noted to have gastric lesion, hepatic nodule, adrenal nodule. Has been doing well? on full liquid; no indication to reinsert NG tube at this time Gastric mass Endoscopy today, ulcerated mass at the gastric outlet, biopsies taken Add PPI Clear liquid diet Surgical consultation for possible partial gastrectomy Oncology consultation Pain management HTN stable blood pressure Continue amlodipine ?? full code DVT prophylaxis with [place] Attending Dr. Kuhn <Patricia Reza NP - Last Filed: 08/19/21 16:46> Quality Stroke Does the patient have a stroke diagnosis?: No <Patricia Reza NP - Last Filed: 08/19/21 16:46> VTE Prior VTE?: No <Patricia Reza NP - Last Filed: 08/19/21 16:46> VTE Risk Level:: Medical - moderate - high <Patricia Reza NP - Last Filed: 08/19/21 16:46> VTE Device Contraindication: N/A - Device Ordered <Patricia Reza NP - Last Filed: 08/19/21 16:46> VTE Drug Contraindication: Treatment Not Indicated <Patricia Reza NP - Last Filed: 08/19/21 16:46>
[2021-08-19] MEDS: 0.9 % Sodium Chloride 1,000 ML 50 ML IVCONT (17:08)
[2021-08-20] VITALS (8 sets, daily range): BP systolic 123–133; BP diastolic 58–70; PULSE 61–85; RESP 16–18; TEMP 36.1–37.1; O2SAT 94–100
[2021-08-20 05:05] LABS: Hematocrit 31.3 % (42.0-52.0); Hemoglobin 10.5 g/dl (14.0-18.0); Mean Corpuscular HGB Conc 33.5 g/dl (31.0-36.0); Mean Corpuscular Hemoglobin 30.7 pg (27.0-33.0); Mean Corpuscular Volume 91.5 fL (80.0-98.0); Mean Platelet Volume 10.9 fL (9.4-12.4); Platelet Count 290 X10*3/uL (160-400); Red Blood Count 3.42 X10*6/uL (4.60-5.80); Red Cell Distribution Width 11.9 % (11.0-16.0); White Blood Count 6.6 X10*3/uL (4.8-10.8)
[2021-08-20 05:20] LABS: Anion Gap 10 (12-20); Blood Urea Nitrogen 10 mg/dL (9-16); Calcium 7.9 mg/dL (8.4-10.2); Carbon Dioxide 27 mmol/L (22-29); Chloride 106 mmol/L (96-108); Creatinine Clr Calc Pharmacy 82.3; Estimated Glomerular Filt Rate > 60; Glucose Random 95 mg/dL (60-115); Potassium 3.5 mmol/L (3.3-5.1); Sodium 139 mmol/L (135-145)
--- NOTE | 2021-08-20 08:26 | P.CONGS_ITS ---
History of Present Illness Consult details Consult date: 08/20/21 Narrative: 81-year-old male patient presenting on 08/15/2021 to the emergency department with complaints of persistent nausea and vomiting. He reported initial symptoms of acid reflux and has been taking [id number] Zantac which was not helping. He denied fever, chills, but does report constipation. He has been taking Ex-Lax at home without significant improvement. Upon presentation to the emergency department a CT of the abdomen and pelvis revealed a dilated stomach secondary to obstructive abnormality at the antrum where there was circumferential and irregular wall thickening worrisome for underlying neoplasm. He subsequently underwent an EGD yesterday. Findings included an ulcerated mass at the gastric outlet. Biopsies were taken. The scope was able to be manipulated through the strictured mass. Results of the biopsy are pending at this time. Surgical consultation was requested for possible partial gastrectomy. Review of Systems Review of Systems: Yes all other systems are reviewed and are negative Constitutional: Constitutional: Denies chills, Denies fever(s), Denies headache(s) and Denies poor appetite Comments: Patient is very hungry I just got ENT: Denies dizziness and Denies headache(s) Cardiovascular: Cardiovascular: Denies chest pain, Denies rapid heart rate, Denies palpitations and Denies slow heart rate Respiratory: Respiratory: Denies chest congestion, Denies cough, Denies pain on inspiration and Denies wheezing Gastrointestinal: Gastrointestinal: Reports abdominal pain, Denies bloating, Denies change in stool character, Reports constipation, Denies diarrhea, Reports nausea, Reports vomiting and Denies hematemesis Musculoskeletal: Musculoskeletal: Denies back pain, Denies arthralgias, Denies joint swelling and Denies numbness Integumentary/Breasts: Skin/Breast: Denies change in pigmentation, Denies erythema and Denies rash Neurologic: Denies dizziness, Denies headache(s) and Denies numbness Psychiatric: Psychiatric: Denies anxiety and Denies depression Endocrine: Endocrine: Denies palpitations Hematologic/Lymphatic: Hematologic/Lymphatic: Denies easy bleeding, Denies easy bruising and Denies lymphadenopathy Allergic/Immunologic: Allergic/Immunologic: Denies wheezing PMFSH Past Medical History Medical History Hypertension Family History Family History Father Past heart attack Mother Past heart attack Surgical History Surgical History History of appendectomy Social History Social History Household Members: None Housing: Apartment Do you presently have visiting nurse or other home services: No Alcohol intake: unknown Patient Tobacco Use Status: Former Tobacco user Quit Date: quit 26 yr ago Tobacco use type: Cigarette Years Smoked: 30 service: Yes Current occupational status: retired [employer] Allergies Allergy/AdvReac Type Severity Reaction Status Date / Time No Known Allergies Allergy Verified 07/26/21 10:51 [No Known Allergies*] Active Medications: Current Medications Amlodipine Besylate (Amlodipine Besylate 5 Mg Tablet) 5 mg PO DAILY TANO; Protocol Last Admin: 08/19/21 11:04 Dose: Not Given Documented by: Benzocaine (Throat Lozenge, Medicated Lozenge) 1 lozenge MUCOUS MEM Q2H PRN PRN Reason: Sore Throat Last Admin: 08/17/21 15:49 Dose: 1 lozenge Documented by: Hydromorphone HCl (Hydromorphone Hcl 0.5 Mg/0.5 Ml Syringe) 0.5 mg IVPUSH Q4H PRN; Protocol PRN Reason: Pain, Severe (Pain Scale 7-10) Lactated Ringer's (Lr) 1,000 mls @ 100 mls/hr IVCONT .Q10H TANO Last Admin: 08/20/21 03:04 Dose: Not Given Documented by: Sodium Chloride (Ns) 1,000 mls @ 50 mls/hr IVCONT .Q20H TANO Last Admin: 08/19/21 17:08 Dose: 50 mls/hr Documented by: Melatonin (Melatonin 3 Mg Tablet) 6 mg PO BEDTIME PRN PRN Reason: Insomnia Ondansetron HCl (Ondansetron Hcl 4 Mg/2 Ml Vial) 4 mg IVPUSH Q8H PRN PRN Reason: Nausea and Vomiting Sodium Chloride (0.9 % Sodium Chloride Flush 3 Ml Syringe) 3 ml IVFLUSH QSHIFT [facility] Last Admin: 08/20/21 00:18 Dose: Not Given Documented by: Physical Exam Vital Signs: Vital Signs: Last Vital Signs Temp 98.6 F 08/20/21 07:14 Pulse 69 08/20/21 07:14 Resp 18 08/20/21 07:14 BP 127/70 08/20/21 07:14 Pulse Ox 97 08/20/21 07:14 Body Mass Index 20.3 Const: General: healthy appearing and comfortable Nutritional Appearance: thin Orientation/consciousness: patient oriented x3 Limitations: no limitations HENMT: Head: Yes normocephalic and Yes atraumatic Ears: hearing grossly normal bilaterally Resp: Effort & Inspection: normal respiratory effort, no cough, no stridor and not tachypneic GI: Inspection: Yes normal to inspection Palpation (GI): Soft to palpation, nontender, no guarding and not rigid Percussion: Yes normal to percussion Auscultation: normal bowel sounds Rectal Exam - Male: Yes deferred Skin: General skin exam: no rashes or lesions noted Neuro: General: patient oriented x3 Extrem: General: Yes no clubbing, cyanosis or edema Results Labs Result diagrams: 08/20/21 04:49 08/20/21 04:49 Labs: Abnormal lab results 08/20/21 08/20/21 Range/Units 04:49 04:49 RBC 3.42 L (4.60-5.80) X10*6/uL Hgb 10.5 L (14.0-18.0) g/dl Hct 31.3 L (42.0-52.0) % Anion Gap 10 L (12-20) Calcium 7.9 L (8.4-10.2) mg/dL Short CBC 08/20/21 Range/Units 04:49 WBC 6.6 (4.8-10.8) X10*3/uL Hgb 10.5 L (14.0-18.0) g/dl Hct 31.3 L (42.0-52.0) % Plt Count 290 (160-400) X10*3/uL BMP 08/20/21 04:49 Sodium 139 Potassium 3.5 Chloride 106 Carbon Dioxide 27 BUN 10 Creatinine 0.70 Calcium 7.9 L Urine 08/15/21 Range/Units 22:40 Urine Color YELLOW Urine Appearance CLEAR Urine pH 5.5 (5.0-8.0) Ur Specific [place] 1.010 (1.005-1.025) Urine Protein NEG (NEG-TRACE) MG/DL Urine Glucose (UA) NEG (NEG) MG/DL All other labs normal. Imaging Abdomen CT scan report/results: image reviewed CT scan - pelvis: image reviewed Assessment and Plan (1) Gastric mass: Status: Acute (2) Gastric out let obstruction: Status: Acute 81-year-old male patient presenting with an obstructing mass in the antrum of the stomach. He is s/p EGD with findings of ulcerated mass in the antrum. Biopsies and pending at this time. Patient would be a candidate for a partial gastrectomy if pathology confirms a gastric malignancy. I briefly discussed the procedure with the patient and will discuss this further based on biopsy results. Surgery can be performed during this admission. Procedures Date of Service Date of Service: 08/20/21
[2021-08-20] MEDS: amLODIPine Besylate 5 MG TABLET PO (08:56)
[2021-08-20] MEDS: Lactated Ringers 1,000 ML 100 ML IVCONT (08:57)
[2021-08-20] MEDS: Dextrose 5 % and 0.45 % NaCl 1,000 ML 50 ML IVCONT (10:41)
--- NOTE | 2021-08-20 12:47 | P.PNIM_ITS ---
Subjective Subjective Date of Service: 08/20/21 <Patricia Reza NP - Last Filed: 08/20/21 15:15> 08/23/21 <Jatinder Kuhn MD - Last Filed: 08/23/21 08:31> Review of Systems Follow up gastric outlet obstruction/mass no pain drinking clears for now Denies chest pain, nausea, vomiting, diarrhea All other systems are reviewed and are negative <Patricia Reza NP - Last Filed: 08/20/21 15:15> Physical Exam Vital Signs: Vital Signs: Last Vital Signs Temp 97.5 F 08/20/21 11:29 Pulse 61 08/20/21 11:29 Resp 18 08/20/21 11:29 BP 133/68 08/20/21 11:29 Pulse Ox 94 08/20/21 11:29 Body Mass Index 20.3 <Patricia Reza NP - Last Filed: 08/20/21 15:15> Appearing in no acute distress lung sounds are clear to auscultation heart regular rate rhythm, clear S1, S2 positive bowel sounds, abdomen is soft, nontender neuro patient is alert x3, no focal deficits <Patricia Reza NP - Last Filed: 08/20/21 15:15> Objective Data Active Medications Amlodipine Besylate (Amlodipine Besylate 5 Mg Tablet) 5 mg PO DAILY TANO; Protocol Last Admin: 08/20/21 08:56 Dose: 5 mg Documented by: LUANN Benzocaine (Throat Lozenge, Medicated Lozenge) 1 lozenge MUCOUS MEM Q2H PRN PRN Reason: Sore Throat Last Admin: 08/17/21 15:49 Dose: 1 lozenge Documented by: IRMA Hydromorphone HCl (Hydromorphone Hcl 0.5 Mg/0.5 Ml Syringe) 0.5 mg IVPUSH Q4H PRN; Protocol PRN Reason: Pain, Severe (Pain Scale 7-10) Dextrose/Sodium Chloride (D51/2ns) 1,000 mls @ 50 mls/hr IVCONT .Q20H TANO Last Admin: 08/20/21 10:41 Dose: 50 mls/hr Documented by: LUANN Melatonin (Melatonin 3 Mg Tablet) 6 mg PO BEDTIME PRN PRN Reason: Insomnia Ondansetron HCl (Ondansetron Hcl 4 Mg/2 Ml Vial) 4 mg IVPUSH Q8H PRN PRN Reason: Nausea and Vomiting Sodium Chloride (0.9 % Sodium Chloride Flush 3 Ml Syringe) 3 ml IVFLUSH QSHIFT [facility] Last Admin: 08/20/21 08:30 Dose: Not Given Documented by: LUANN Non-Admin Reason: IV Running <Patricia Reza NP - Last Filed: 08/20/21 15:15> Labs CBC & Chem 7: : 08/22/21 05:23 08/22/21 05:23 <Patricia Reza NP - Last Filed: 08/20/21 15:15> Labs: Laboratory Results - last 24 hr 08/20/21 08/20/21 04:49 04:49 MCV 91.5 MCH 30.7 MCHC 33.5 RDW 11.9 Plt Count 290 MPV 10.9 Absolute Nucleated RBC 0.000 Nucleated RBC % (auto) 0.0 Anion Gap 10 L Estim Creat Clear Calc 82.3 Estimated GFR > 60 Random Glucose 95 Calcium 7.9 L <Patricia Reza NP - Last Filed: 08/20/21 15:15> Assessment and Plan (1) Gastric out let obstruction: Status: Acute <Patricia Reza NP - Last Filed: 08/20/21 15:15> (2) Gastric mass: Status: Acute <Patricia Reza NP - Last Filed: 08/20/21 15:15> (3) Hypertension: Status: Acute <Patricia Reza NP - Last Filed: 08/20/21 15:15> Assessment and Plan: 81-year-old male with a past medical history of hypertension presented to the hospital with a chief complaint of abdominal pain.? Patient reported that of past few days he has been having abdominal discomfort and acid reflux symptoms.? But last night and yesterday he had leg increased abdominal pain not able to take anything p.o. had nausea and vomiting at home, denies any blood in the vomiting.? Denies any blood in the stool.CT scan noted to have gastric lesion, hepatic nodule, adrenal nodule. Has been doing well? on full liquid; no indication to reinsert NG tube at this time Gastric mass, gastric outlet obstruction Endoscopy today, ulcerated mass at the gastric outlet, biopsies taken PPI D5W Clear liquid diet Surgical consultation, waiting for biopsy to dx malignancy then possible partial gastrectomy during this admission Oncology consultation Pain management HTN stable blood pressure Continue amlodipine ?? full code DVT prophylaxis with [place] Attending Dr. Kuhn <Patricia Reza NP - Last Filed: 08/20/21 15:15> Quality Stroke Does the patient have a stroke diagnosis?: No <Patricia Reza NP - Last Filed: 08/20/21 15:15> VTE Prior VTE?: No <Patricia Reza NP - Last Filed: 08/20/21 15:15> VTE Risk Level:: Medical - moderate - high <Patricia Reza NP - Last Filed: 08/20/21 15:15> VTE Device Contraindication: N/A - Device Ordered <Patricia Reza NP - Last Filed: 08/20/21 15:15> VTE Drug Contraindication: Treatment Not Indicated <Patricia Reza NP - Last Filed: 08/20/21 15:15>
--- NOTE | 2021-08-20 13:05 | HO.POSTANES ---
Post Anesthesia Evaluation Post Anesthesia Evaluation Vital Signs: Vital Signs Temp Pulse Resp BP Pulse Ox 08/20/21 11:29 97.5 F 61 18 133/68 94 08/20/21 08:56 69 127/70 08/20/21 07:14 98.6 F 69 18 127/70 97 08/20/21 03:52 98.8 F 73 16 131/58 L 97 Anesthesia: Monitored Mental Status: Awake Pain Control: Satisfactory Nausea/Vomiting: None Hydration: Adequate Anesthesia-Related Issues: No Anes. Related Issues
[2021-08-20] MEDS: Throat Lozenge, Medicated LOZENGE 1 LOZENGE MUCOUS MEM (19:55)
[2021-08-21] VITALS (7 sets, daily range): BP systolic 118–152; BP diastolic 56–76; PULSE 61–80; RESP 16–18; TEMP 36.4–37.3; O2SAT 95–100
[2021-08-21] MEDS: Dextrose 5 % and 0.45 % NaCl 1,000 ML 50 ML IVCONT ×2 (04:47→21:26)
[2021-08-21 05:47] LABS: Anion Gap 16 (12-20); Blood Urea Nitrogen 6 mg/dL (9-16); Calcium 8.1 mg/dL (8.4-10.2); Carbon Dioxide 23 mmol/L (22-29); Chloride 107 mmol/L (96-108); Creatinine Clr Calc Pharmacy 78.9; Estimated Glomerular Filt Rate > 60; Glucose Random 107 mg/dL (60-115); Potassium 3.6 mmol/L (3.3-5.1); Sodium 142 mmol/L (135-145)
[2021-08-21 06:03] LABS: Hematocrit 31.1 % (42.0-52.0); Hemoglobin 10.4 g/dl (14.0-18.0); Mean Corpuscular HGB Conc 33.4 g/dl (31.0-36.0); Mean Corpuscular Hemoglobin 30.8 pg (27.0-33.0); Mean Platelet Volume 11.2 fL (9.4-12.4); Platelet Count 312 X10*3/uL (160-400); Red Blood Count 3.38 X10*6/uL (4.60-5.80); Red Cell Distribution Width 11.9 % (11.0-16.0)
--- NOTE | 2021-08-21 08:58 | PM.HEMONCCN ---
Subjective - Subjective Chief complaint: Consult for: Gastric Mass. Patient: new to practice Consult date: 08/21/21 Requesting Physician: Juaquin. Primary Care Provider: Unknown Physician Medical Summary: DIAGNOSIS: GASTRIC MASS. HPI - Consult Narrative Reason for consult: GASTRIC MASS. Narrative: Jeffrey Schilling is a 81 year old gentleman, who came to the ER with abdominal pain. He presented on 08/15/2021 to the emergency department with complaints of persistent nausea and vomiting. He reported initial symptoms of acid reflux and has been taking [id number] Zantac which was not helping. He denied fever, chills, but does report constipation. He has been taking Ex-Lax at home without significant improvement. Upon presentation to the emergency department a CT of the abdomen and pelvis revealed a dilated stomach secondary to obstructive abnormality at the antrum where there was circumferential and irregular thickening of the gastric antrum and a 1.9 cm necrotic node beneath the duodenum, worrisome for underlying neoplasm. He subsequently underwent an EGD 08/15. Findings included an ulcerated mass at the gastric outlet. Biopsies were taken. The scope was able to be manipulated through the strictured mass. Results of the biopsy are pending at this time. Surgical consultation was requested for possible partial gastrectomy. He appears cachectic but denies weight loss. Review of Systems - Constitutional Reports system reviewed and no additional complaints, except as documented, Reports fatigue, Reports lack of energy, Reports malaise, Reports weakness, Reports weight loss, Denies fever(s) - Eyes Reports system reviewed and no additional complaints, except as documented, Denies blurry vision - ENT Reports system reviewed and no additional complaints, except as documented - Cardiovascular Reports system reviewed and no additional complaints, except as documented, Denies leg sores - Respiratory Reports no additional respiratory complaints, Denies chest congestion - Gastrointestinal Reports system reviewed and no additional complaints, except as documented, Reports abdominal pain, Reports belching, Reports feeling full early, Reports dyspepsia - Genitourinary Genitourinary: Reports no additional male genitourinary complaints, Denies blood in urine - Musculoskeletal Reports system reviewed and no additional complaints, except as documented, Denies back pain, Denies muscle weakness - Integumentary/Breasts Skin/Breast: Reports no additional skin complaints - Neurologic Reports weakness, Denies headache(s), Denies numbness - Psychiatric Reports system reviewed and no additional complaints, except as documented, Reports anxiety - Endocrine Reports no additional endocrine complaints, Denies excessive sweating - Hematologic/Lymphatic Reports system reviewed and no additional complaints, except as documented, Denies easy bruising - Allergic/Immunologic Reports system reviewed and no additional complaints, except as documented, Reports GI upset with certain foods PMFSH Medical History: Medical History (Last Reviewed 09/03/21 @ 12:51 by Michelle Campbell MD) Hypertension Family History: Family History (Last Reviewed 09/03/21 @ 12:51 by Michelle Campbell MD) Father Past heart attack Mother Past heart attack Surgical History: Surgical History (Last Reviewed 09/03/21 @ 12:51 by Michelle Campbell MD) History of appendectomy Social History: Social History (Last Reviewed 09/03/21 @ 12:51 by Michelle Campbell MD) Living Situation History: Household Members: None Housing: Apartment Do you presently have visiting nurse or other home services: No Alcohol History: Alcohol intake: unknown Alcohol History Details: Alcohol intake frequency: holiday/special occasion Tobacco History: Patient Tobacco Use Status: Former Tobacco user Tobacco use type: Cigarette Years Smoked: 30 Smoke Quit Date: quit 26 yr ago Second Hand Smoke Exposure: No 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 occupational status: retired Home Medications and Allergies Current Medications: Current Medications Amlodipine Besylate (Amlodipine Besylate 5 Mg Tablet) 5 mg PO DAILY [facility]; Protocol Last Admin: 08/20/21 08:56 Dose: 5 mg Documented by: Benzocaine (Throat Lozenge, Medicated Lozenge) 1 lozenge MUCOUS MEM Q2H PRN PRN Reason: Sore Throat Last Admin: 08/20/21 19:55 Dose: 1 lozenge Documented by: Dextrose/Sodium Chloride (D51/2ns) 1,000 mls @ 50 mls/hr IVCONT .Q20H [facility] Last Admin: 08/21/21 04:47 Dose: 50 mls/hr Documented by: Melatonin (Melatonin 3 Mg Tablet) 6 mg PO BEDTIME PRN PRN Reason: Insomnia Ondansetron HCl (Ondansetron Hcl 4 Mg/2 Ml Vial) 4 mg IVPUSH Q8H PRN PRN Reason: Nausea and Vomiting Sodium Chloride (0.9 % Sodium Chloride Flush 3 Ml Syringe) 3 ml IVFLUSH QSHIFT [facility] Last Admin: 08/21/21 00:06 Dose: Not Given Documented by: Allergies Allergy/AdvReac Type Severity Reaction Status Date / Time No Known Allergies Allergy Verified 07/26/21 10:51 [No Known Allergies*] Physical Exam Vital signs: Vital Signs Temp 97.6 F 08/21/21 07:37 Pulse 65 08/21/21 07:37 Resp 18 08/21/21 07:37 BP 127/69 08/21/21 07:37 Pulse Ox 99 08/21/21 07:37 Intake & Output 08/20/21 08/21/21 08/21/21 18:59 06:59 18:59 Intake Total 1860 / 3045 1185 / 3045 720 / 720 Output Total 260 / 260 Balance 1860 / 2785 925 / 2785 720 / 720 Urine Output (Average ml/kg/hr) 0.32 0.32 Intake: Intake, Oral Amount 960 / 1240 280 / 1240 720 / 720 Intake, IV Amount 900 / 1805 905 / 1805 0.9 % Sodium Chloride 1,000 ml 600 / 600 @ 50 mls/hr IVCONT .Q20H [facility] Rx #:[id number] Dextrose 5 % and 0.45 % NaCl 1, 905 / 905 000 ml @ 50 mls/hr IVCONT .Q20H [facility] Rx#:[id number] Lactated Ringers 1,000 ml @ 100 300 / 300 mls/hr IVCONT .Q10H [facility] Rx#: [id number] Output: Output, Urine Amount 260 / 260 Other: Meal Refused No NPO No Dinner % Eaten 75% Number of Unmeasured Voids 3 Urine Bathroom Bathroom Urine Color Pale Yellow Yellow Stool Bathroom Weight 68.039 kg - Constitutional Present: moderate distress - Routine HEENT Exam Head: Present: normal inspection ENT: Present: mucous membranes moist - Routine Neck Exam Present: supple - Routine Respiratory Exam Present: CTAB - Routine Cardiovascular Exam Cardiovascular: Present: RRR, S1, S2 - Routine Abdominal Exam Present: normal bowel sounds, tenderness, nontender - Routine Extremities Exam Present: full ROM - Routine Skin Exam Present: intact - Routine Neurological Exam Present: alert, oriented X3 - Detailed Neurological Exam: Coma Scale Eye Opening: Spontaneous (4) Verbal Response: Oriented (5) Motor Response: Obeys commands (6) Marcela Coma Scale Total: 15 - Routine Psychiatric Exam Present: anxious Hem/Onc Consult Result - Labs CBC & Chem 7: 09/03/21 05:22 09/03/21 05:22 Labs: Short CBC 08/21/21 Range/Units 05:15 WBC 6.0 (4.8-10.8) X10*3/uL Hgb 10.4 L (14.0-18.0) g/dl Hct 31.1 L (42.0-52.0) % Plt Count 312 (160-400) X10*3/uL [facility] 08/21/21 05:15 Sodium 142 Potassium 3.6 Chloride 107 Carbon Dioxide 23 BUN 6 L Creatinine 0.73 Calcium 8.1 L Assessment and Plan Patient Active problem list reviewed?: Yes (1) Gastric mass Status: Acute Assessment and plan: 81 year old gentleman with gastric outlet obstruction. EGD showed a gastric mass. 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 PLAN: Will make further plans, based upon the results. Will need a PET scan for staging, as an out-patient. I would recommend Pre-op chemotherapy, followed by surgery if feasible. Thanks, Will follow, ADDENDUM: Patient was evaluated by general surgery and GI. They recommended to proceed with surgical resection. Patient underwent the surgery on 08/26. 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 So surgery could not be performed. 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 He is status post gastrojejunostomy.? He developed fever/rigors over last weekend and underwent work up which was negative. Started on IV zosyn empirically. Blood cultures positive for GNR bacteria: serratia Marsenscans. Symptoms resolved. He remained afebrile >24h. White blood count: normal. Continue IV zosyn. Obtain ID consult re: GNR bacteremia and antibiotic recommendations. <Aliza Perdue PA-C - CT chest and abdomen/pelvis: No evidence of anastomotic leak or abscess. Agree with ID consultation. He was sent home on antibiotics. He will be followed up as an outpatient. CC: Dr. Corbett. - Time Spent With Patient Time Spent with Patient (in minutes): 35
[2021-08-21] MEDS: amLODIPine Besylate 5 MG TABLET PO (09:00)
--- NOTE | 2021-08-21 11:30 | MHC.CLN ---
F/U APPEARS TO BE TOLERATING CLEAR LIQUIDS DIET. RECEIVING ENSURE CLEAR TID TO PROVIDE ADDITIONAL 720 KCAL, 24 G PROTEIN. AWAITING PATHOLOGY REPORT.
--- NOTE | 2021-08-21 13:45 | HO.PM.IMPN ---
Subjective Subjective Date of Service: 08/21/21 <MEMO Pop - Last Filed: 08/21/21 14:21> 08/23/21 <Jatinder Kuhn MD - Last Filed: 08/23/21 08:31> Interval History: Seen and examined this morning Follow-up for gastric mass Reports no abdominal pain, no nausea or vomiting Feeling somewhat hungry. <MEMO Pop - Last Filed: 08/21/21 14:21> Review of Systems Review of Systems: Yes all other systems are reviewed and are negative <MEMO Pop - Last Filed: 08/21/21 14:21> Constitutional Constitutional: Denies chills and Denies fever(s) <MEMO Pop - Last Filed: 08/21/21 14:21> Cardiovascular Cardiovascular: Denies chest pain <MEMO Pop - Last Filed: 08/21/21 14:21> Respiratory Respiratory: Denies cough <MEMO Pop - Last Filed: 08/21/21 14:21> Gastrointestinal Gastrointestinal: Denies abdominal pain <MEMO Pop - Last Filed: 08/21/21 14:21> Physical Exam Vital Signs: Vital Signs: Last Vital Signs Temp 98.2 F 08/21/21 11:34 Pulse 62 08/21/21 11:34 Resp 18 08/21/21 11:34 BP 138/76 08/21/21 11:34 Pulse Ox 100 08/21/21 11:34 BMI result Body Mass Index 20.3 <MEMO Pop - Last Filed: 08/21/21 14:21> Const: General: comfortable, no acute distress, awake and Physically active <MEMO Pop - Last Filed: 08/21/21 14:21> Nutritional Appearance: thin <MEMO Pop - Last Filed: 08/21/21 14:21> Orientation/consciousness: patient oriented x3 <MEMO Pop - Last Filed: 08/21/21 14:21> HENMT: Head: Yes normocephalic and Yes atraumatic <MEMO Pop - Last Filed: 08/21/21 14:21> Eyes: Sclerae: sclerae normal <MEMO Pop - Last Filed: 08/21/21 14:21> Resp: Effort & Inspection: normal respiratory effort and no respiratory distress <MEMO Pop - Last Filed: 08/21/21 14:21> Cardio: Rate: regular rate <MEMO Pop - Last Filed: 08/21/21 14:21> Rhythm: regular rhythm <MEMO Pop - Last Filed: 08/21/21 14:21> GI: Inspection: No distended <MEMO Pop - Last Filed: 08/21/21 14:21> Palpation (GI): Soft to palpation and nontender <MEMO Pop - Last Filed: 08/21/21 14:21> Neuro: General: patient oriented x3 <MEMO Pop - Last Filed: 08/21/21 14:21> Cranial nerves: Yes CN's II-XII intact bilaterally and Yes Bilaterally intact EOM present <MEMO Pop - Last Filed: 08/21/21 14:21> Extrem: Other: no leg edema <MEMO Pop - Last Filed: 08/21/21 14:21> Objective Data Active Medications Amlodipine Besylate (Amlodipine Besylate 5 Mg Tablet) 5 mg PO DAILY [facility]; Protocol Last Admin: 08/21/21 09:00 Dose: 5 mg Documented by: LUANN Benzocaine (Throat Lozenge, Medicated Lozenge) 1 lozenge MUCOUS MEM Q2H PRN PRN Reason: Sore Throat Last Admin: 08/20/21 19:55 Dose: 1 lozenge Documented by: NEMESIO Dextrose/Sodium Chloride (D51/2ns) 1,000 mls @ 50 mls/hr IVCONT .Q20H [facility] Last Admin: 08/21/21 04:47 Dose: 50 mls/hr Documented by: NEMESIO Melatonin (Melatonin 3 Mg Tablet) 6 mg PO BEDTIME PRN PRN Reason: Insomnia Ondansetron HCl (Ondansetron Hcl 4 Mg/2 Ml Vial) 4 mg IVPUSH Q8H PRN PRN Reason: Nausea and Vomiting Sodium Chloride (0.9 % Sodium Chloride Flush 3 Ml Syringe) 3 ml IVFLUSH QSHIFT [facility] Last Admin: 08/21/21 09:01 Dose: Not Given Documented by: LUANN Non-Admin Reason: IV Running <MEMO Pop - Last Filed: 08/21/21 14:21> Labs CBC & Chem 7: : 08/22/21 05:23 08/22/21 05:23 <MEMO Pop - Last Filed: 08/21/21 14:21> Labs: Laboratory Results - last 24 hr 08/21/21 08/21/21 05:15 05:15 MCV 92.0 MCH 30.8 MCHC 33.4 RDW 11.9 Plt Count 312 MPV 11.2 Absolute Nucleated RBC 0.000 Nucleated RBC % (auto) 0.0 Anion Gap 16 Estim Creat Clear Calc 78.9 Estimated GFR > 60 Random Glucose 107 Calcium 8.1 L <MEMO Pop - Last Filed: 08/21/21 14:21> Assessment and Plan (1) Gastric out let obstruction: Status: Acute <MEMO Pop Last Filed: 08/21/21 14:21> (2) Gastric mass: Status: Acute <MEMO Pop Last Filed: 08/21/21 14:21> Assessment and Plan: 81-year-old male with a past medical history of hypertension presented to the hospital with a chief complaint of abdominal pain.? Patient reported that of past few days he has been having abdominal discomfort and acid reflux symptoms.? But last night and yesterday he had leg increased abdominal pain not able to take anything p.o. had nausea and vomiting at home, denies any blood in the vomiting.? Denies any blood in the stool.CT scan noted to have gastric lesion, hepatic nodule, adrenal nodule. Has been doing well on full liquid; no indication to reinsert NG tube at this time Gastric mass, gastric outlet obstruction s/p EGD 08/20 ulcerated mass at the gastric outlet, biopsies taken Tolerating clear liquids seen by oncology, will need PET for staging, possible preop chemo seen by general surgery, will need partial gastrectomy, can likely be done as outpatient oral PPI IVF follow up biopsy results HTN stable blood pressure Continue amlodipine HCTZ on hold ?? full code DVT prophylaxis with Lovenox Attending Dr. Kuhn <MEMO Pop - Last Filed: 08/21/21 14:21> Quality Stroke Does the patient have a stroke diagnosis?: No <MEMO Pop - Last Filed: 08/21/21 14:21> VTE Prior VTE?: No <MEMO Pop - Last Filed: 08/21/21 14:21> VTE Risk Level:: Medical - moderate - high <MEMO Pop - Last Filed: 08/21/21 14:21> VTE Device Contraindication: N/A - Device Ordered <MEMO Pop - Last Filed: 08/21/21 14:21> VTE Drug Contraindication: Treatment Not Indicated <MEMO Pop - Last Filed: 08/21/21 14:21>
--- NOTE | 2021-08-21 13:56 | MHC.CM.PN ---
IMM DELIVERED AND EXPLAINED TO PATIENT. PATIENT IS AWARE THAT HE IS STAYING TONIGHT AND PLANS ARE DC TOMORROW WITH OUTPATIENT FOLLOW UP. IMM 08/21 IN CHART
[2021-08-22] VITALS (7 sets, daily range): BP systolic 116–135; BP diastolic 66–79; PULSE 57–72; RESP 17–20; TEMP 36.4–37.1; O2SAT 96–100
[2021-08-22 05:51] LABS: Hematocrit 30.5 % (42.0-52.0); Hemoglobin 10.1 g/dl (14.0-18.0); Mean Corpuscular HGB Conc 33.1 g/dl (31.0-36.0); Mean Corpuscular Hemoglobin 30.4 pg (27.0-33.0); Mean Corpuscular Volume 91.9 fL (80.0-98.0); Mean Platelet Volume 10.9 fL (9.4-12.4); Platelet Count 326 X10*3/uL (160-400); Red Blood Count 3.32 X10*6/uL (4.60-5.80); Red Cell Distribution Width 11.9 % (11.0-16.0)
[2021-08-22 06:12] LABS: Anion Gap 11 (12-20); Blood Urea Nitrogen 6 mg/dL (9-16); Calcium 8.4 mg/dL (8.4-10.2); Carbon Dioxide 27 mmol/L (22-29); Chloride 107 mmol/L (96-108); Creatinine Clr Calc Pharmacy 78.9; Estimated Glomerular Filt Rate > 60; Glucose Random 101 mg/dL (60-115); Potassium 3.6 mmol/L (3.3-5.1); Sodium 141 mmol/L (135-145)
--- NOTE | 2021-08-22 07:30 | PM.PNGS ---
Subjective Subjective Date of Service: 08/21/21 Interval history: Patient tolerating clear liquid diet without nausea or vomiting. Does report some abdominal distension however. Has not moved his bowels since admission. He is passing some flatus. Final pathology is not complete however preliminary were is gastric adenoca. Physical Exam Vital Signs: Vital Signs: Last Vital Signs Temp 98.7 F 08/22/21 04:00 Pulse 64 08/22/21 04:00 Resp 17 08/22/21 04:00 BP 124/66 08/22/21 04:00 Pulse Ox 97 08/22/21 04:00 BMI result Body Mass Index 20.3 Const: General: comfortable Nutritional Appearance: thin Orientation/consciousness: patient oriented x3 Limitations: no limitations HENMT: Head: Yes normocephalic GI: Inspection: Yes normal to inspection Palpation (GI): Soft to palpation, nontender, no guarding and not rigid Percussion: Yes normal to percussion Skin: General skin exam: no rashes or lesions noted Neuro: General: patient oriented x3 Objective Data Active Medications Amlodipine Besylate (Amlodipine Besylate 5 Mg Tablet) 5 mg PO DAILY [facility]; Protocol Last Admin: 08/21/21 09:00 Dose: 5 mg Documented by: LUANN Benzocaine (Throat Lozenge, Medicated Lozenge) 1 lozenge MUCOUS MEM Q2H PRN PRN Reason: Sore Throat Last Admin: 08/20/21 19:55 Dose: 1 lozenge Documented by: NEMESIO Dextrose/Sodium Chloride (D51/2ns) 1,000 mls @ 50 mls/hr IVCONT .Q20H [facility] Last Admin: 08/21/21 21:26 Dose: 50 mls/hr Documented by: NEMESIO Melatonin (Melatonin 3 Mg Tablet) 6 mg PO BEDTIME PRN PRN Reason: Insomnia Omeprazole (Omeprazole 20 Mg/10 Ml Susp.Recon) 20 mg PO DAILY@0630 [facility] Last Admin: 08/22/21 05:58 Dose: 20 mg Documented by: NEMESIO Ondansetron HCl (Ondansetron Hcl 4 Mg/2 Ml Vial) 4 mg IVPUSH Q8H PRN PRN Reason: Nausea and Vomiting Sodium Chloride (0.9 % Sodium Chloride Flush 3 Ml Syringe) 3 ml IVFLUSH QSHIFT [facility] Last Admin: 08/22/21 00:10 Dose: Not Given Documented by: NEMESIO Non-Admin Reason: IV Running Labs CBC & Chem 7: 08/22/21 05:23 08/22/21 05:23 Labs: Laboratory Results - last 24 hr 08/22/21 08/22/21 05:23 05:23 MCV 91.9 MCH 30.4 MCHC 33.1 RDW 11.9 Plt Count 326 MPV 10.9 Absolute Nucleated RBC 0.000 Nucleated RBC % (auto) 0.0 Anion Gap 11 L Estim Creat Clear Calc 78.9 Estimated GFR > 60 Random Glucose 101 Calcium 8.4 Procedures Date of Service Date of Service: 08/21/21 Progress Note: A&P Assessment and plan (1) Gastric out let obstruction: Status: Acute (2) Gastric mass: Status: Acute Assessment and Plan: 81-year-old male patient with gastric malignancy and antrum, nearly obstructing, probable gastric adenoma CA. patient is at high risk for gastric obstruction he may be best served by a palliative partial gastrectomy with gastrojejunostomy. Will await oncology evaluation. Patient's tentatively scheduled for surgery on Thursday. Fall Risk Details Current Medications: Current Medications Amlodipine Besylate (Amlodipine Besylate 5 Mg Tablet) 5 mg PO DAILY [facility]; Protocol Last Admin: 08/21/21 09:00 Dose: 5 mg Documented by: Benzocaine (Throat Lozenge, Medicated Lozenge) 1 lozenge MUCOUS MEM Q2H PRN PRN Reason: Sore Throat Last Admin: 08/20/21 19:55 Dose: 1 lozenge Documented by: Dextrose/Sodium Chloride (D51/2ns) 1,000 mls @ 50 mls/hr IVCONT .Q20H [facility] Last Admin: 08/21/21 21:26 Dose: 50 mls/hr Documented by: Melatonin (Melatonin 3 Mg Tablet) 6 mg PO BEDTIME PRN PRN Reason: Insomnia Omeprazole (Omeprazole 20 Mg/10 Ml Susp.Recon) 20 mg PO DAILY@0630 [facility] Last Admin: 08/22/21 05:58 Dose: 20 mg Documented by: Ondansetron HCl (Ondansetron Hcl 4 Mg/2 Ml Vial) 4 mg IVPUSH Q8H PRN PRN Reason: Nausea and Vomiting Sodium Chloride (0.9 % Sodium Chloride Flush 3 Ml Syringe) 3 ml IVFLUSH QSHIFT [facility] Last Admin: 08/22/21 00:10 Dose: Not Given Documented by: Time Spent With Patient Time: Total time spent is greater than 50% in coordination of care (as documented) at patient's floor/unit and/or counseling patient: Time with patient: 15 - 24 minutes Quality Stroke Does the patient have a stroke diagnosis?: No VTE Prior VTE?: No VTE Risk Level:: Medical - moderate - high VTE Device Contraindication: N/A - Device Ordered VTE Drug Contraindication: Treatment Not Indicated
[2021-08-22] MEDS: amLODIPine Besylate 5 MG TABLET PO (08:42)
--- NOTE | 2021-08-22 11:27 | MHC.CM.PN ---
PLAN OF CARE IS DEPENDENT ON CONVERSATION BETWEEN ONCOLOGY AND SURGEON. POSSIBLE DC TODAY VERSUS SURGERY TOMORROW IMM 08/21 IN CHART
--- NOTE | 2021-08-22 11:36 | HO.PM.IMPN ---
Subjective Subjective Date of Service: 08/22/21 <MEMO Pop - Last Filed: 08/22/21 11:46> 08/23/21 <Jatinder Kuhn MD - Last Filed: 08/23/21 08:31> Interval History: Seen and examined this morning Follow-up for gastric mass. No abdominal pain, tolerating clear liquid diet. Feeling hungry <MEMO Pop - Last Filed: 08/22/21 11:46> Review of Systems Review of Systems: Yes all other systems are reviewed and are negative <MEMO Pop - Last Filed: 08/22/21 11:46> Constitutional Constitutional: Denies chills and Denies fever(s) <MEMO Pop - Last Filed: 08/22/21 11:46> Cardiovascular Cardiovascular: Denies chest pain <MEMO Pop - Last Filed: 08/22/21 11:46> Respiratory Respiratory: Denies cough <MEMO Pop - Last Filed: 08/22/21 11:46> Gastrointestinal Gastrointestinal: Denies abdominal pain <MEMO Pop - Last Filed: 08/22/21 11:46> Physical Exam Vital Signs: Vital Signs: Last Vital Signs Temp 97.8 F 08/22/21 11:14 Pulse 57 08/22/21 11:14 Resp 18 08/22/21 11:14 BP 135/69 08/22/21 11:14 Pulse Ox 99 08/22/21 11:14 BMI result Body Mass Index 20.3 <MEMO Pop - Last Filed: 08/22/21 11:46> Const: General: comfortable, no acute distress, awake and Physically active <MEMO Pop - Last Filed: 08/22/21 11:46> Nutritional Appearance: thin <MEMO Pop - Last Filed: 08/22/21 11:46> Orientation/consciousness: patient oriented x3 <MEMO Pop - Last Filed: 08/22/21 11:46> HENMT: Head: Yes normocephalic and Yes atraumatic <MEMO Pop - Last Filed: 08/22/21 11:46> Eyes: Sclerae: sclerae normal <MEMO Pop - Last Filed: 08/22/21 11:46> Resp: Effort & Inspection: normal respiratory effort and no respiratory distress <MEMO Pop - Last Filed: 08/22/21 11:46> Cardio: Rate: regular rate <MEMO Pop - Last Filed: 08/22/21 11:46> Rhythm: regular rhythm <MEMO Pop - Last Filed: 08/22/21 11:46> GI: Inspection: No distended <MEMO Pop - Last Filed: 08/22/21 11:46> Palpation (GI): Soft to palpation and nontender <MEMO Pop - Last Filed: 08/22/21 11:46> Neuro: General: patient oriented x3 <MEMO Pop - Last Filed: 08/22/21 11:46> Cranial nerves: Yes CN's II-XII intact bilaterally and Yes Bilaterally intact EOM present <MEMO Pop - Last Filed: 08/22/21 11:46> Extrem: Other: no leg edema <MEMO Pop - Last Filed: 08/22/21 11:46> Objective Data Active Medications Amlodipine Besylate (Amlodipine Besylate 5 Mg Tablet) 5 mg PO DAILY [facility]; Protocol Last Admin: 08/22/21 08:42 Dose: 5 mg Documented by: IRMA Benzocaine (Throat Lozenge, Medicated Lozenge) 1 lozenge MUCOUS MEM Q2H PRN PRN Reason: Sore Throat Last Admin: 08/20/21 19:55 Dose: 1 lozenge Documented by: NEMESIO Dextrose/Sodium Chloride (D51/2ns) 1,000 mls @ 50 mls/hr IVCONT .Q20H [facility] Last Admin: 08/21/21 21:26 Dose: 50 mls/hr Documented by: NEMESIO Melatonin (Melatonin 3 Mg Tablet) 6 mg PO BEDTIME PRN PRN Reason: Insomnia Omeprazole (Omeprazole 20 Mg/10 Ml Susp.Recon) 20 mg PO DAILY@0630 [facility] Last Admin: 08/22/21 05:58 Dose: 20 mg Documented by: NEMESIO Ondansetron HCl (Ondansetron Hcl 4 Mg/2 Ml Vial) 4 mg IVPUSH Q8H PRN PRN Reason: Nausea and Vomiting Sodium Chloride (0.9 % Sodium Chloride Flush 3 Ml Syringe) 3 ml IVFLUSH QSHIFT [facility] Last Admin: 08/22/21 08:41 Dose: Not Given Documented by: IRMA Non-Admin Reason: IV Running <MEMO Pop - Last Filed: 08/22/21 11:46> Labs CBC & Chem 7: : 08/22/21 05:23 08/22/21 05:23 <MEMO Pop - Last Filed: 08/22/21 11:46> Labs: Laboratory Results - last 24 hr 08/22/21 08/22/21 05:23 05:23 MCV 91.9 MCH 30.4 MCHC 33.1 RDW 11.9 Plt Count 326 MPV 10.9 Absolute Nucleated RBC 0.000 Nucleated RBC % (auto) 0.0 Anion Gap 11 L Estim Creat Clear Calc 78.9 Estimated GFR > 60 Random Glucose 101 Calcium 8.4 <MEMO Pop - Last Filed: 08/22/21 11:46> Assessment and Plan (1) Gastric out let obstruction: Status: Acute <MEMO Pop - Last Filed: 08/22/21 11:46> (2) Gastric mass: Status: Acute <MEMO Pop - Last Filed: 08/22/21 11:46> Assessment and Plan: 81-year-old male with a past medical history of hypertension presented to the hospital with a chief complaint of abdominal pain.? Patient reported that of past few days he has been having abdominal discomfort and acid reflux symptoms.? But last night and yesterday he had leg increased abdominal pain not able to take anything p.o. had nausea and vomiting at home, denies any blood in the vomiting.? Denies any blood in the stool.CT scan noted to have gastric lesion, hepatic nodule, adrenal nodule. Has been doing well on full liquid; no indication to reinsert NG tube at this time Gastric mass, gastric outlet obstruction s/p EGD 08/20 ulcerated mass at the gastric outlet, biopsies taken Tolerating clear liquids, will advance to full liquids seen by oncology, will need PET for staging, possible preop chemo seen by general surgery, will need palliative partial gastrectomy due to gastric outlet obstruction, timing to be determined continue oral PPI IVF follow up biopsy results HTN BP controlled Continue amlodipine HCTZ on hold ?? full code DVT prophylaxis with Lovenox Attending Dr. Kuhn <MEMO Pop - Last Filed: 08/22/21 11:46> Quality Stroke Does the patient have a stroke diagnosis?: No <MEMO Pop - Last Filed: 08/22/21 11:46> VTE Prior VTE?: No <MEMO Pop - Last Filed: 08/22/21 11:46> VTE Risk Level:: Medical - moderate - high <MEMO Pop - Last Filed: 08/22/21 11:46> VTE Device Contraindication: N/A - Device Ordered <MEMO Pop - Last Filed: 08/22/21 11:46> VTE Drug Contraindication: Treatment Not Indicated <MEMO Pop - Last Filed: 08/22/21 11:46>
--- NOTE | 2021-08-22 13:10 | P.PNGS_ITS ---
Subjective Subjective Date of Service: 08/22/21 Interval history: Patient able to tolerate liquids without nausea or vomiting. Denies any new complaints. Physical Exam Vital Signs: Vital Signs: Last Vital Signs Temp 97.8 F 08/22/21 11:14 Pulse 57 08/22/21 11:14 Resp 18 08/22/21 11:14 BP 135/69 08/22/21 11:14 Pulse Ox 99 08/22/21 11:14 BMI result Body Mass Index 20.3 Const: General: comfortable and no acute distress Nutritional Appearance: thin Orientation/consciousness: patient oriented x3 Limitations: no limitations Resp: Effort & Inspection: normal respiratory effort, no audible wheezes, no cough and no respiratory distress GI: Inspection: Yes normal to inspection Palpation (GI): Soft to palpation, nontender, no guarding and not rigid Skin: General skin exam: no rashes or lesions noted Neuro: General: patient oriented x3 Extrem: General: Yes no clubbing, cyanosis or edema Objective Data Active Medications Amlodipine Besylate (Amlodipine Besylate 5 Mg Tablet) 5 mg PO DAILY [facility]; Protocol Last Admin: 08/22/21 08:42 Dose: 5 mg Documented by: IRMA Benzocaine (Throat Lozenge, Medicated Lozenge) 1 lozenge MUCOUS MEM Q2H PRN PRN Reason: Sore Throat Last Admin: 08/20/21 19:55 Dose: 1 lozenge Documented by: NEMESIO Dextrose/Sodium Chloride (D51/2ns) 1,000 mls @ 50 mls/hr IVCONT .Q20H [facility] Last Admin: 08/21/21 21:26 Dose: 50 mls/hr Documented by: NEMESIO Melatonin (Melatonin 3 Mg Tablet) 6 mg PO BEDTIME PRN PRN Reason: Insomnia Omeprazole (Omeprazole 20 Mg/10 Ml Susp.Recon) 20 mg PO DAILY@0630 [facility] Last Admin: 08/22/21 05:58 Dose: 20 mg Documented by: NEMESIO Ondansetron HCl (Ondansetron Hcl 4 Mg/2 Ml Vial) 4 mg IVPUSH Q8H PRN PRN Reason: Nausea and Vomiting Sodium Chloride (0.9 % Sodium Chloride Flush 3 Ml Syringe) 3 ml IVFLUSH QSHIFT [facility] Last Admin: 08/22/21 08:41 Dose: Not Given Documented by: IRMA Non-Admin Reason: IV Running Labs CBC & Chem 7: 08/22/21 05:23 08/22/21 05:23 Labs: Laboratory Results - last 24 hr 08/22/21 08/22/21 05:23 05:23 MCV 91.9 MCH 30.4 MCHC 33.1 RDW 11.9 Plt Count 326 MPV 10.9 Absolute Nucleated RBC 0.000 Nucleated RBC % (auto) 0.0 Anion Gap 11 L Estim Creat Clear Calc 78.9 Estimated GFR > 60 Random Glucose 101 Calcium 8.4 Procedures Date of Service Date of Service: 08/22/21 Progress Note: A&P Assessment and plan (1) Gastric out let obstruction: Status: Acute (2) Gastric mass: Status: Acute Assessment and Plan: 81-year-old male patient presenting with a 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 Patient also has an enlarged lymph node and possible metastasis to the right lobe of the liver. Findings were reviewed with the patient in detail. The possibility of complete gastric obstruction was discussed and recommendation made for partial gastrectomy. I reviewed the procedure, risks (including but not limited to bleeding, infection, pain, organ injury, anastomotic leak, need for reoperation, delays in gastric emptying), and alternatives (including observation, neoadjuvant chemotherapy), and he consents to the hand assisted laparoscopic partial gastrectomy. He has been added onto the operative schedule for tomorrow. Fall Risk Details Current Medications: Current Medications Amlodipine Besylate (Amlodipine Besylate 5 Mg Tablet) 5 mg PO DAILY [facility]; Protocol Last Admin: 08/22/21 08:42 Dose: 5 mg Documented by: Benzocaine (Throat Lozenge, Medicated Lozenge) 1 lozenge MUCOUS MEM Q2H PRN PRN Reason: Sore Throat Last Admin: 08/20/21 19:55 Dose: 1 lozenge Documented by: Dextrose/Sodium Chloride (D51/2ns) 1,000 mls @ 50 mls/hr IVCONT .Q20H [facility] Last Admin: 08/21/21 21:26 Dose: 50 mls/hr Documented by: Melatonin (Melatonin 3 Mg Tablet) 6 mg PO BEDTIME PRN PRN Reason: Insomnia Omeprazole (Omeprazole 20 Mg/10 Ml Susp.Recon) 20 mg PO DAILY@0630 [facility] Last Admin: 08/22/21 05:58 Dose: 20 mg Documented by: Ondansetron HCl (Ondansetron Hcl 4 Mg/2 Ml Vial) 4 mg IVPUSH Q8H PRN PRN Reason: Nausea and Vomiting Sodium Chloride (0.9 % Sodium Chloride Flush 3 Ml Syringe) 3 ml IVFLUSH QSHIFT [facility] Last Admin: 08/22/21 08:41 Dose: Not Given Documented by: Time Spent With Patient Time: Total time spent is greater than 50% in coordination of care (as documented) at patient's floor/unit and/or counseling patient: Time with patient: 15 - 24 minutes Quality Stroke Does the patient have a stroke diagnosis?: No VTE Prior VTE?: No VTE Risk Level:: Medical - moderate - high VTE Device Contraindication: N/A - Device Ordered VTE Drug Contraindication: Treatment Not Indicated
[2021-08-22] MEDS: Dextrose 5 % and 0.45 % NaCl 1,000 ML 50 ML IVCONT (20:50)
[2021-08-23] VITALS (16 sets, daily range): BP systolic 124–158; BP diastolic 59–82; PULSE 63–86; RESP 16–20; TEMP 36.4–37.3; O2SAT 95–100
--- NOTE | 2021-08-23 08:10 | PM.HEMONCPN ---
Medical Summary - Medical Summary Date of Service: 08/23/21 Chief complaint: follow-up for: Gastric mass. Medical Summary: DIAGNOSIS: GASTRIC MASS. Causing gastric outlet obstruction. Interval History Interval history: Jeffrey Schilling is a 81 year old gentleman, he had an uneventful night. Denies pain nausea vomiting. Had been tolerating full liquids yesterday. Remains afebrile. HPI: He came to the ER with abdominal pain. He presented on 08/15/2021 to the emergency department with complaints of persistent nausea and vomiting. He reported initial symptoms of acid reflux and has been taking [id number] Zantac which was not helping. He denied fever, chills, but does report constipation. He has been taking Ex-Lax at home without significant improvement. Upon presentation to the emergency department a CT of the abdomen and pelvis revealed a dilated stomach secondary to obstructive abnormality at the antrum where there was circumferential and irregular thickening of the gastric antrum and a 1.9 cm necrotic node beneath the duodenum, worrisome for underlying neoplasm. He subsequently underwent an EGD 08/15. Findings included an ulcerated mass at the gastric outlet. Biopsies were taken. The scope was able to be manipulated through the strictured mass. Results of the biopsy are pending at this time. Surgical consultation was requested for possible partial gastrectomy. He appears cachectic but denies weight loss. Review of Systems - Constitutional Reports system reviewed and no additional complaints, except as documented, Reports lack of energy, Reports malaise, Reports weakness, Reports weight loss - Eyes Reports system reviewed and no additional complaints, except as documented - ENT Reports system reviewed and no additional complaints, except as documented - Cardiovascular Reports system reviewed and no additional complaints, except as documented - Respiratory Reports no additional respiratory complaints - Gastrointestinal Reports system reviewed and no additional complaints, except as documented - Genitourinary Genitourinary: Reports no additional male genitourinary complaints - Musculoskeletal Reports system reviewed and no additional complaints, except as documented - Integumentary/Breasts Skin/Breast: Reports no additional skin complaints - Neurologic Reports weakness, Denies headache(s), Denies numbness - Psychiatric Reports system reviewed and no additional complaints, except as documented - Endocrine Reports no additional endocrine complaints - Hematologic/Lymphatic Reports system reviewed and no additional complaints, except as documented - Allergic/Immunologic Reports system reviewed and no additional complaints, except as documented PMFSH Medical History: Medical History (Last Reviewed 08/20/21 @ 08:33 by Alonso Brush MD) Hypertension Functional capacity: independent ambulation Patient : No Family History: Family History (Last Reviewed 08/20/21 @ 08:33 by Alonso Brush MD) Father Past heart attack Mother Past heart attack Surgical History: Surgical History (Last Reviewed 08/20/21 @ 08:33 by Alonso Brush MD) History of appendectomy Social History: Social History (Last Reviewed 08/20/21 @ 08:33 by Alonso Brush MD) Living Situation History: Household Members: None Housing: Apartment Do you presently have visiting nurse or other home services: No Alcohol History: Alcohol intake: unknown Alcohol History Details: Alcohol intake frequency: holiday/special occasion Tobacco History: Patient Tobacco Use Status: Former Tobacco user Tobacco use type: Cigarette Years Smoked: 30 Smoke Quit Date: quit 26 yr ago 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 occupational status: retired Oncology Screenings - ECOG Performance Status ECOG Performance Status: 0 Home Medications and Allergies Current Medications: Current Medications Amlodipine Besylate (Amlodipine Besylate 5 Mg Tablet) 5 mg PO DAILY [facility]; Protocol Last Admin: 08/22/21 08:42 Dose: 5 mg Documented by: Benzocaine (Throat Lozenge, Medicated Lozenge) 1 lozenge MUCOUS MEM Q2H PRN PRN Reason: Sore Throat Last Admin: 08/20/21 19:55 Dose: 1 lozenge Documented by: Dextrose/Sodium Chloride (D51/2ns) 1,000 mls @ 50 mls/hr IVCONT .Q20H [facility] Last Admin: 08/22/21 20:50 Dose: 50 mls/hr Documented by: Melatonin (Melatonin 3 Mg Tablet) 6 mg PO BEDTIME PRN PRN Reason: Insomnia Omeprazole (Omeprazole 20 Mg/10 Ml Susp.Recon) 20 mg PO DAILY@0630 [facility] Last Admin: 08/23/21 04:36 Dose: 20 mg Documented by: Ondansetron HCl (Ondansetron Hcl 4 Mg/2 Ml Vial) 4 mg IVPUSH Q8H PRN PRN Reason: Nausea and Vomiting Sodium Chloride (0.9 % Sodium Chloride Flush 3 Ml Syringe) 3 ml IVFLUSH QSHIFT [facility] Last Admin: 08/22/21 20:51 Dose: Not Given Documented by: Allergies Allergy/AdvReac Type Severity Reaction Status Date / Time No Known Allergies Allergy Verified 07/26/21 10:51 [No Known Allergies*] Exam Vital signs: Vital Signs Temp 97.9 F 08/23/21 04:00 Pulse 64 08/23/21 04:00 Resp 16 08/23/21 04:00 BP 133/71 08/23/21 04:00 Pulse Ox 97 08/23/21 04:00 Intake & Output 08/22/21 08/23/21 08/23/21 18:59 06:59 18:59 Intake Total 1959 Balance 1959 Intake: Intake, Oral Amount 960 / 960 Intake, IV Amount 1000 / 1000 Dextrose 5 % and 0.45 % NaCl 1, 1000 / 1000 000 ml @ 50 mls/hr IVCONT .Q20H [facility] Rx#:[id number] Other: Number of Unmeasured Voids 3 1 Urine Bathroom Bathroom Weight 68.039 kg BMI result Body Mass Index 20.3 - Constitutional Present: no acute distress, cachectic, chronically ill appearing, cooperative - Routine HEENT Exam Head: Present: normal inspection Eye: Present: normal appearance ENT: Present: mucous membranes moist - Routine Neck Exam Present: full ROM - Routine Respiratory Exam Present: decreased breath sounds - Routine Cardiovascular Exam Cardiovascular: Present: RRR, S1, S2 - Routine Abdominal Exam Present: diminished bowel sounds, hypoactive bowel sounds - Routine Extremities Exam Present: nontender - Routine Back/Spine/Pelvis Exam Back/Spine: Present: full ROM - Routine Skin Exam Present: intact - Routine Neurological Exam Present: alert, oriented X3 - Routine Psychiatric Exam Present: normal affect Data - Labs CBC & Chem 7: 08/22/21 05:23 08/22/21 05:23 Labs: 08/15/21 XR chest 1V Stat 08/15/21 18:59 ECG 12 lead EKG Stat EKG Documentation DIRECTED 08/15/21 19:14 [id number] Stat 08/15/21 19:19 Alpha Fetoprotein Stat Carcinoembryonic Antigen Stat Complete Blood Count Auto Diff Stat Comprehensive Met. Panel Stat Lactic Acid Stat Lipase Stat Troponin-I High Sensitivity Stat 08/15/21 19:22 Add Laboratory Test Stat 08/15/21 20:22 CT abdomen pelvis w con Stat Famotidine/PF [Pepcid/PF] 20 mg IVPUSH ONCE ONE Lidocaine HCl Viscous 2 % [Xylocaine Viscous 2 % Oral Marla] 10 ml MUCOUS MEM ONCE ONE Magnesium Hydrox/Alum Hydrox [Maalox] 30 ml PO ONCE ONE 08/15/21 20:47 iohexoL 350 MG/ML [Omnipaque 350 MG/ML] 100 ml IV ONCE ONE 08/15/21 22:12 COVID-19 ID NOW ([place]) Stat 08/15/21 22:21 HYDROmorphone HCl [Dilaudid] 0.5 mg IVPUSH Q4H PRN 08/15/21 22:30 Dextrose 5 % and 0.45 % NaCl [D51/2Ns] 1,000 ml IVCONT 75 mls/hr 08/15/21 22:36 Add Laboratory Test Routine 08/15/21 22:40 UA CC w/rflx Micro + Cult Stat 08/16/21 05:14 Basic Metabolic Panel AM Complete Blood Count Auto Diff AM 08/16/21 06:30 Pantoprazole Sodium [Protonix] 40 mg IVPUSH DAILY@0630 08/17/21 05:47 Comprehensive [place]. Panel Fast DAILY@0600 08/17/21 06:02 Complete Blood Count Auto Diff DAILY@0600 08/17/21 08:48 Clear Liquid Diet 08/18/21 05:48 Complete Blood Count Auto Diff DAILY@0600 Comprehensive [place]. Panel Fast DAILY@0600 08/19/21 00:01 NPO Diet 08/19/21 03:58 Complete Blood Count Auto Diff DAILY@0600 [facility] [place]. Panel Fast DAILY@0600 08/19/21 14:14 Clear Liquid Diet 08/19/21 14:16 Vital Signs Q1H Vital Signs Q5MIN 08/19/21 14:30 Lactated Ringers [Lr] 1,000 ml IVCONT 100 mls/hr 08/19/21 14:40 Lidocaine HCl 2 % MPF [Xylocaine 2 % MPF] 5 ml .ROUTE .STK-MED ONE propofoL [Diprivan] 200 mg IVPUSH .STK-MED ONE 08/19/21 15:35 Surgical [PTH] Routine Transfer Order Routine 08/19/21 15:40 Continuous pulse oximetry CONT Vital Signs Q5MIN 08/19/21 17:00 0.9 % Sodium Chloride [Ns] 1,000 ml IVCONT 50 mls/hr 08/20/21 04:49 Basic Metabolic Panel AM Complete Blood Count no Diff AM 08/21/21 05:15 Basic Metabolic Panel DAILY@0600 Complete Blood Count no Diff DAILY@0600 08/22/21 05:23 Basic Metabolic Panel DAILY@0600 Complete Blood Count no Diff DAILY@0600 08/22/21 09:54 Full Liquid Diet Laboratory Last Values WBC 6.0 X10*3/uL (4.8-10.8) 08/22/21 05:23 RBC 3.32 X10*6/uL (4.60-5.80) L 08/22/21 05:23 Hgb 10.1 g/dl (14.0-18.0) L 08/22/21 05:23 Hct 30.5 % (42.0-52.0) L 08/22/21 05:23 MCV 91.9 fL (80.0-98.0) 08/22/21 05:23 MCH 30.4 pg (27.0-33.0) 08/22/21 05:23 MCHC 33.1 g/dl (31.0-36.0) 08/22/21 05:23 RDW 11.9 % (11.0-16.0) 08/22/21 05:23 Plt Count 326 X10*3/uL (160-400) 08/22/21 05:23 MPV 10.9 fL (9.4-12.4) 08/22/21 05:23 Immature Gran % (Auto) 0.3 % (0.0-0.4) 08/19/21 03:58 Neut % (Auto) 68.2 % (45-73) 08/19/21 03:58 Lymph % (Auto) 16.6 % (20-40) L 08/19/21 03:58 [place] % (Auto) 12.8 % (2-11) H 08/19/21 03:58 Eos % (Auto) 2.0 % (0-4) 08/19/21 03:58 Baso % (Auto) 0.1 % (0-2) 08/19/21 03:58 Lymph # (Auto) 1.2 X10*3/uL (1.2-4.9) 08/19/21 03:58 [place] # (Auto) 1.0 X10*3/uL (0.1-1.2) 08/19/21 03:58 Eos # (Auto) 0.2 X10*3/uL (0.0-0.4) 08/19/21 03:58 Baso # (Auto) 0.0 X10*3/uL (0.0-0.2) 08/19/21 03:58 Abs Immat Gran (auto) 0.02 X10*3/uL (0.00-0.03) 08/19/21 03:58 Absolute Neuts (auto) 5.1 x10*3/uL (2.0-8.3) 08/19/21 03:58 Absolute Nucleated RBC 0.000 X10*3/uL (0.0-0.012) 08/22/21 05:23 Nucleated RBC % (auto) 0.0 /100WBC (0.0-0.2) 08/22/21 05:23 Sodium 141 mmol/L (135-145) 08/22/21 05:23 Potassium 3.6 mmol/L (3.3-5.1) 08/22/21 05:23 Chloride 107 mmol/L (96-108) 08/22/21 05:23 Carbon Dioxide 27 mmol/L (22-29) 08/22/21 05:23 Anion Gap 11 (12-20) L 08/22/21 05:23 BUN 6 mg/dL (9-16) L 08/22/21 05:23 Creatinine 0.73 mg/dL (0.5-1.4) 08/22/21 05:23 Estim Creat Clear Calc 78.9 08/22/21 05:23 Estimated GFR > 60 08/22/21 05:23 Random Glucose 101 mg/dL (60-115) 08/22/21 05:23 Fasting Glucose 103 mg/dL (60-99) H 08/19/21 03:58 Lactic Acid 1.3 mmol/L (0.5-2.0) 08/15/21 19:19 Calcium 8.4 mg/dL (8.4-10.2) 08/22/21 05:23 Total Bilirubin 0.5 mg/dL (0.0-1.0) 08/19/21 03:58 AST 15 U/L (5-37) 08/19/21 03:58 ALT 15 U/L (0-40) 08/19/21 03:58 Alkaline Phosphatase 85 U/L (39-117) 08/19/21 03:58 Troponin I High Sens 5.3 ng/L (<3.5-35.0) 08/15/21 19:19 Total Protein 5.4 g/dL (6.5-8.0) L 08/19/21 03:58 Albumin 3.2 g/dL (3.5-5.0) L 08/19/21 03:58 Lipase 58 U/L (8-78) 08/15/21 19:19 Alpha Fetoprotein 4.2 ng/mL (<6.1) 08/15/21 19:19 Carcinoembryonic Ag 61.90 ng/mL 08/15/21 19:19 Urine Color YELLOW 08/15/21 22:40 Urine Appearance CLEAR 08/15/21 22:40 Urine pH 5.5 (5.0-8.0) 08/15/21 22:40 Ur Specific [place] 1.010 (1.005-1.025) 08/15/21 22:40 Urine Protein NEG MG/DL (NEG-TRACE) 08/15/21 22:40 Urine Glucose (UA) NEG MG/DL (NEG) 08/15/21 22:40 Urine Ketones 15 MG/DL (NEG) 08/15/21 22:40 Urine Blood NEG (NEG) 08/15/21 22:40 Urine Nitrite NEG (NEG) 08/15/21 22:40 Ur Leukocyte Esterase NEG (NEG) 08/15/21 22:40 Stool Occult Blood NEGATIVE (NEGATIVE) 08/15/21 19:14 COVID-19 ([facility]) Negative (Negative) 08/15/21 22:12 COVID-19 Clin Com See Note 08/15/21 22:12 - Imaging Radiologist's impression: ITS Impressions Abdomen/Pelvis CT 08/15/21 20:22 IMPRESSION: Circumferential and irregular wall thickening at the gastric antrum concerning for an underlying neoplasia. 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 There is a 1 cm hypoattenuating lesion in the right hepatic lobe which is also worrisome for metastatic disease. There is an indeterminate 1.9 cm hyperattenuating nodule in the left adrenal gland in which metastatic disease cannot be entirely excluded given additional findings. This result was discussed with Dr Valiente at 08/15/2021 9:16 PM and it was ascertained that the content and urgency of the report was understood at the time of direct communication. Chest X-Ray 08/15/21 23:12 IMPRESSION: Nasogastric tube tip in the proximal stomach with side-port in the region of the distal esophagus; advancement by approximately 10 cm is recommended. Assessment and Plan Patient Active problem list reviewed?: Yes (1) Gastric mass Status: Acute Assessment and plan: 81 year old gentleman with gastric outlet obstruction. EGD showed a gastric mass. Pathology is pending. Had a detailed discussion with the patient, yesterday. Reviewed pros and cons of treatment including chemotherapy as well as surgery. Discussed with Dr. Brush. Concern is for gastric outlet obstruction related to pre pyloric adenocarcinoma. Stomach is quite dilated on CT scan. Even though he has an enlarged lymph node and possible metastasis to the right lobe of the liver as well as left adrenal gland, the concern is the possibility of complete gastric obstruction. And so recommendation was made for partial gastrectomy, for palliation. The procedure, risks (including but not limited to bleeding, infection, pain, organ injury, anastomotic leak, need for reoperation, delays in gastric emptying), and alternatives (including observation, neoadjuvant chemotherapy), were all addressed with him. He understood and consented to the hand assisted laparoscopic partial gastrectomy. He will have a liver biopsy done at the time of the procedure. I did review some details of chemotherapy, with him. PLAN: He will need a PET scan for staging, as an out-patient. Would recommend chemotherapy, subsequently. I wish him the best of luck with his procedure today. Thanks, Will follow, CC: Dr. Corbett. - Time Spent With Patient Time Spent with Patient (in minutes): 25
--- NOTE | 2021-08-23 09:27 | MHC.SHP ---
Pre-Procedural Eval Section A Date of Service: 08/23/21 The patient is an INPATIENT: Yes Section B Chief Complaint: abd pain vomiting Allergies: Allergies Allergy/AdvReac Type Severity Reaction Status Date / Time No Known Allergies Allergy Verified 07/26/21 10:51 [No Known Allergies*] Plan Diagnosis/Plan: Unchanged I have reviewed the history and physical and performed a pertinent physical examination on my patient. No changes have occurred unless specified.
--- NOTE | 2021-08-23 09:51 | P.PNIM_ITS ---
Subjective Subjective Date of Service: 08/23/21 <MEMO Pop - Last Filed: 08/23/21 09:57> 08/23/21 <Jatinder Kuhn MD - Last Filed: 08/23/21 11:51> Interval History: Seen and examined this morning Follow-up for gastric mass No overnight events Plan for partial gastrectomy today Patient denies any abdominal pain, nausea, vomiting <MEMO Pop - Last Filed: 08/23/21 09:57> Review of Systems Review of Systems: Yes all other systems are reviewed and are negative <MEMO Pop - Last Filed: 08/23/21 09:57> Constitutional Constitutional: Denies chills and Denies fever(s) <MEMO Pop - Last Filed: 08/23/21 09:57> Cardiovascular Cardiovascular: Denies chest pain <MEMO Pop - Last Filed: 08/23/21 09:57> Respiratory Respiratory: Denies cough <MEMO Pop - Last Filed: 08/23/21 09:57> Gastrointestinal Gastrointestinal: Denies abdominal pain <MEMO Pop - Last Filed: 08/23/21 09:57> Physical Exam Vital Signs: Vital Signs: Last Vital Signs Temp 97.9 F 08/23/21 08:00 Pulse 66 08/23/21 08:42 Resp 17 08/23/21 08:00 BP 126/66 08/23/21 08:42 Pulse Ox 100 08/23/21 08:00 BMI result Body Mass Index 20.3 <MEMO Pop - Last Filed: 08/23/21 09:57> Const: General: comfortable, no acute distress, awake and Physically active <MEMO Pop - Last Filed: 08/23/21 09:57> Nutritional Appearance: thin <MEMO Pop Last Filed: 08/23/21 09:57> Orientation/consciousness: patient oriented x3 <MEMO Pop Last Filed: 08/23/21 09:57> HENMT: Head: Yes normocephalic and Yes atraumatic <MEMO Pop - Last Filed: 08/23/21 09:57> Eyes: Sclerae: sclerae normal <MEMO Pop - Last Filed: 08/23/21 09:57> Resp: Effort & Inspection: normal respiratory effort and no respiratory distress <MEMO Pop - Last Filed: 08/23/21 09:57> Cardio: Rate: regular rate <MEMO Pop - Last Filed: 08/23/21 09:57> Rhythm: regular rhythm <MEMO Pop - Last Filed: 08/23/21 09:57> GI: Inspection: No distended <MEMO Pop - Last Filed: 08/23/21 09:57> Palpation (GI): Soft to palpation and nontender <MEMO Pop - Last Filed: 08/23/21 09:57> Neuro: General: patient oriented x3 <MEMO Pop - Last Filed: 08/23/21 09:57> Cranial nerves: Yes CN's II-XII intact bilaterally and Yes Bilaterally intact EOM present <MEMO Pop Last Filed: 08/23/21 09:57> Extrem: Other: no leg edema <MEMO Pop - Last Filed: 08/23/21 09:57> Objective Data Active Medications Amlodipine Besylate (Amlodipine Besylate 5 Mg Tablet) 5 mg PO DAILY TANO; Protocol Last Admin: 08/23/21 08:42 Dose: Not Given Documented by: LANIE Non-Admin Reason: NPO Benzocaine (Throat Lozenge, Medicated Lozenge) 1 lozenge MUCOUS MEM Q2H PRN PRN Reason: Sore Throat Last Admin: 08/20/21 19:55 Dose: 1 lozenge Documented by: NEMESIO Dextrose/Sodium Chloride (D51/2ns) 1,000 mls @ 50 mls/hr IVCONT .Q20H TANO Last Admin: 08/22/21 20:50 Dose: 50 mls/hr Documented by: DEANNA Melatonin (Melatonin 3 Mg Tablet) 6 mg PO BEDTIME PRN PRN Reason: Insomnia Omeprazole (Omeprazole 20 Mg/10 Ml Susp.Recon) 20 mg PO DAILY@0630 [facility] Last Admin: 08/23/21 04:36 Dose: 20 mg Documented by: DEANNA Ondansetron HCl (Ondansetron Hcl 4 Mg/2 Ml Vial) 4 mg IVPUSH Q8H PRN PRN Reason: Nausea and Vomiting Sodium Chloride (0.9 % Sodium Chloride Flush 3 Ml Syringe) 3 ml IVFLUSH QSHIFT [facility] Last Admin: 08/23/21 08:41 Dose: Not Given Documented by: LANIE Non-Admin Reason: IV Running <MEMO Pop - Last Filed: 08/23/21 09:57> Labs CBC & Chem 7: : 08/22/21 05:23 08/22/21 05:23 <MEMO Pop - Last Filed: 08/23/21 09:57> Assessment and Plan (1) Gastric out let obstruction: Status: Acute <MEMO Pop Last Filed: 08/23/21 09:57> (2) Gastric mass: Status: Acute <MEMO Pop Last Filed: 08/23/21 09:57> Assessment and Plan: This is a 81-year-old male with a past medical history of hyperte nsion who presented to the hospital with a abdominal pain, nausea and vomiting found to have gastric mass causing gastric outlet obstruction, hepatic nodule, adrenal nodule. Gastric mass, gastric outlet obstruction s/p EGD 08/20 ulcerated mass at the gastric outlet, biopsies taken, pathology showing adenocarcinoma seen by oncology, will need PET for staging, possible preop chemo seen by general surgery, will need palliative partial gastrectomy due to gastric outlet obstruction, planned for today continue oral PPI IVF HTN BP controlled Continue amlodipine HCTZ on hold ?? full code DVT prophylaxis boots Attending Dr. Kuhn <MEMO Pop - Last Filed: 08/23/21 09:57> Quality Stroke Does the patient have a stroke diagnosis?: No <MEMO Pop Last Filed: 08/23/21 09:57> VTE Prior VTE?: No <MEMO Pop Last Filed: 08/23/21 09:57> VTE Risk Level:: Medical - moderate - high <MEMO Pop Last Filed: 08/23/21 09:57> VTE Device Contraindication: N/A - Device Ordered <MEMO Pop - Last Filed: 08/23/21 09:57> VTE Drug Contraindication: Treatment Not Indicated <MEMO Pop - Last Filed: 08/23/21 09:57>
--- NOTE | 2021-08-23 12:44 | P.CONAN_ITS ---
[facility] Active Problems Active Problems: All Active Problems (Updated 08/16/21 @ 12:12 by Jeffrey Powell MD) Gastric out let obstruction (Acute) Gastric mass (Acute) Adult general medical exam (Acute) Shoulder pain (Acute) Skin lesion (Acute) Hypertension (Acute) Past Medical History Medical History Hypertension Functional capacity: independent ambulation Family History Family History Father Past heart attack Mother Past heart attack Family history of problems with anesthesia: No Surgical History Surgical History History of appendectomy History of Problems with Anesthesia: No Social History Social History Household Members: None Housing: Apartment Do you presently have visiting nurse or other home services: No Alcohol intake: unknown Patient Tobacco Use Status: Former Tobacco user Quit Date: quit 26 yr ago Tobacco use type: Cigarette Years Smoked: 30 Second Hand Smoke Exposure: No service: Yes Current occupational status: retired [email or web address] Allergies Allergy/AdvReac Type Severity Reaction Status Date / Time No Known Allergies Allergy Verified 07/26/21 10:51 [No Known Allergies*] Active Medications: Current Medications Amlodipine Besylate (Amlodipine Besylate 5 Mg Tablet) 5 mg PO DAILY TANO; Protocol Last Admin: 08/23/21 08:42 Dose: Not Given Documented by: Benzocaine (Throat Lozenge, Medicated Lozenge) 1 lozenge MUCOUS MEM Q2H PRN PRN Reason: Sore Throat Last Admin: 08/20/21 19:55 Dose: 1 lozenge Documented by: Cefazolin Sodium/Dextrose (Ancef) 2 gm in 50 mls @ 100 mls/hr IV PREOP ONE Stop: 08/23/21 13:07 Melatonin (Melatonin 3 Mg Tablet) 6 mg PO BEDTIME PRN PRN Reason: Insomnia Omeprazole (Omeprazole 20 Mg/10 Ml Susp.Recon) 20 mg PO DAILY@0630 [facility] Last Admin: 08/23/21 04:36 Dose: 20 mg Documented by: Ondansetron HCl (Ondansetron Hcl 4 Mg/2 Ml Vial) 4 mg IVPUSH Q8H PRN PRN Reason: Nausea and Vomiting Sodium Chloride (0.9 % Sodium Chloride Flush 3 Ml Syringe) 3 ml IVFLUSH QSHIFT [facility] Last Admin: 08/23/21 08:41 Dose: Not Given Documented by: Exam Exam Date and Time: August 23, 2021 1244 Height,Weight and Vital Signs: Height 6 ft Weight 68.039 kg Last Vital Signs Temp 97.9 F 08/23/21 08:00 uPulse 66 08/23/21 08:42 Resp 17 08/23/21 08:00 BP 126/66 08/23/21 08:42 Pulse Ox 100 08/23/21 08:00 Pertinent Lab Results Pertinent Lab Results: Laboratory Tests 08/15/21 08/15/21 08/15/21 19:14 19:19 19:19 WBC 9.2 RBC 4.11 L Hgb 13.1 L Hct 37.8 L MCV 92.0 MCH 31.9 MCHC 34.7 RDW 12.5 Plt Count 361 MPV 10.9 Immature Gran % (Auto) 0.2 Neut % (Auto) 84.0 H Lymph % (Auto) 7.5 L Gregory % (Auto) 8.0 Eos % (Auto) 0.0 Baso % (Auto) 0.3 Lymph # (Auto) 0.7 L Gregory # (Auto) 0.7 Eos # (Auto) 0.0 Baso # (Auto) 0.0 Abs Immat Gran (auto) 0.02 Absolute Neuts (auto) 7.7 Absolute Nucleated RBC 0.000 Nucleated RBC % (auto) 0.0 Sodium 139 Potassium 3.3 Chloride 102 Carbon Dioxide 27 Anion Gap 13 BUN 17 H Creatinine 1.06 Estim Creat Clear Calc 54.3 Estimated GFR > 60 Random Glucose 119 H Fasting Glucose Lactic Acid Calcium 9.8 Total Bilirubin 0.6 AST 22 ALT 14 Alkaline Phosphatase 68 Troponin I High Sens Total Protein 7.1 Albumin 4.4 Lipase 58 Alpha Fetoprotein Carcinoembryonic Ag 61.90 Urine Color Urine Appearance Urine pH Ur Specific [place] Urine Protein Urine Glucose (UA) Urine Ketones Urine Blood Urine Nitrite Ur Leukocyte Esterase Stool Occult Blood NEGATIVE COVID-19 ([facility]) COVID-19 Clin Com 08/15/21 08/15/21 08/15/21 19:19 19:19 19:19 WBC RBC Hgb Hct MCV MCH MCHC RDW Plt Count MPV Immature Gran % (Auto) Neut % (Auto) Lymph % (Auto) Gregory % (Auto) Eos % (Auto) Baso % (Auto) Lymph # (Auto) Gregory # (Auto) Eos # (Auto) Baso # (Auto) Abs Immat Gran (auto) Absolute Neuts (auto) Absolute Nucleated RBC Nucleated RBC % (auto) Sodium Potassium Chloride Carbon Dioxide Anion Gap BUN Creatinine Estim Creat Clear Calc Estimated GFR Random Glucose Fasting Glucose Lactic Acid 1.3 Calcium Total Bilirubin AST ALT Alkaline Phosphatase Troponin I High Sens 5.3 Total Protein Albumin Lipase Alpha Fetoprotein 4.2 Carcinoembryonic Ag Urine Color Urine Appearance Urine pH Ur Specific [place] Urine Protein Urine Glucose (UA) Urine Ketones Urine Blood Urine Nitrite Ur Leukocyte Esterase Stool Occult Blood COVID-19 ([facility]) COVID-Likeeds 08/15/21 08/15/21 08/16/21 22:12 22:40 05:14 WBC 9.6 RBC 4.04 L Hgb 12.5 L Hct 37.6 L MCV 93.1 MCH 30.9 MCHC 33.2 RDW 12.6 Plt Count 333 MPV 11.4 Immature Gran % (Auto) 0.3 Neut % (Auto) 76.0 H Lymph % (Auto) 11.2 L Gregory % (Auto) 12.1 H Eos % (Auto) 0.1 Baso % (Auto) 0.3 Lymph # (Auto) 1.1 L Gregory # (Auto) 1.2 Eos # (Auto) 0.0 Baso # (Auto) 0.0 Abs Immat Gran (auto) 0.03 Absolute Neuts (auto) 7.3 Absolute Nucleated RBC 0.000 Nucleated RBC % (auto) 0.0 Sodium Potassium Chloride Carbon Dioxide Anion Gap BUN Creatinine Estim Creat Clear Calc Estimated GFR Random Glucose Fasting Glucose Lactic Acid Calcium Total Bilirubin AST ALT Alkaline Phosphatase Troponin I High Sens Total Protein Albumin Lipase Alpha Fetoprotein Carcinoembryonic Ag Urine Color YELLOW Urine Appearance CLEAR Urine pH 5.5 Ur Specific [place] 1.010 Urine Protein NEG Urine Glucose (UA) NEG Urine Ketones 15 Urine Blood NEG Urine Nitrite NEG Ur Leukocyte Esterase NEG Stool Occult Blood COVID-19 (IR[facility]) Negative COVID-19 Fiber Options Com See Note 08/16/21 08/17/21 08/17/21 05:14 05:47 06:02 WBC 9.2 RBC 3.82 L Hgb 11.8 L Hct 35.5 L MCV 92.9 MCH 30.9 MCHC 33.2 RDW 12.4 Plt Count 297 MPV 11.5 Immature Gran % (Auto) 0.3 Neut % (Auto) 74.8 H Lymph % (Auto) 11.2 L Gregory % (Auto) 12.9 H Eos % (Auto) 0.5 Baso % (Auto) 0.3 Lymph # (Auto) 1.0 L Gregory # (Auto) 1.2 Eos # (Auto) 0.1 Baso # (Auto) 0.0 Abs Immat Gran (auto) 0.03 Absolute Neuts (auto) 6.9 Absolute Nucleated RBC 0.000 Nucleated RBC % (auto) 0.0 Sodium 139 137 Potassium 3.7 3.6 Chloride 104 103 Carbon Dioxide 26 26 Anion Gap 13 12 BUN 16 15 Creatinine 0.85 0.78 Estim Creat Clear Calc 67.8 73.9 Estimated GFR > 60 > 60 Random Glucose 118 H Fasting Glucose 115 H Lactic Acid Calcium 9.0 D 8.1 L D Total Bilirubin 0.9 AST 26 ALT 19 Alkaline Phosphatase 66 Troponin I High Sens Total Protein 5.5 L D Albumin 3.3 L D Lipase Alpha Fetoprotein Carcinoembryonic Ag Urine Color Urine Appearance Urine pH Ur Specific [place] Urine Protein Urine Glucose (UA) Urine Ketones Urine Blood Urine Nitrite Ur Leukocyte Esterase Stool Occult Blood COVID-19 ([facility]) COVID-19 Clin Com 08/18/21 08/18/21 08/19/21 05:48 05:48 03:58 WBC 8.5 7.4 RBC 3.71 L 3.49 L Hgb 11.2 L 10.8 L Hct 34.1 L 32.1 L MCV 91.9 92.0 MCH 30.2 30.9 MCHC 32.8 33.6 RDW 12.0 12.0 Plt Count 297 299 MPV 11.5 11.5 Immature Gran % (Auto) 0.4 0.3 Neut % (Auto) 72.9 68.2 Lymph % (Auto) 11.2 L 16.6 L Gregory % (Auto) 13.6 H 12.8 H Eos % (Auto) 1.5 2.0 Baso % (Auto) 0.4 0.1 Lymph # (Auto) 1.0 L 1.2 Gregory # (Auto) 1.2 1.0 Eos # (Auto) 0.1 0.2 Baso # (Auto) 0.0 0.0 Abs Immat Gran (auto) 0.03 0.02 Absolute Neuts (auto) 6.2 5.1 Absolute Nucleated RBC 0.000 0.000 Nucleated RBC % (auto) 0.0 0.0 Sodium 137 Potassium 3.4 Chloride 104 Carbon Dioxide 24 Anion Gap 12 BUN 13 Creatinine 0.75 Estim Creat Clear Calc 76.8 Estimated GFR > 60 Random Glucose Fasting Glucose 95 Lactic Acid Calcium 7.9 L Total Bilirubin 0.7 AST 18 ALT 17 Alkaline Phosphatase 71 Troponin I High Sens Total Protein 5.3 L Albumin 3.1 L Lipase Alpha Fetoprotein Carcinoembryonic Ag Urine Color Urine Appearance Urine pH Ur Specific [place] Urine Protein Urine Glucose (UA) Urine Ketones Urine Blood Urine Nitrite Ur Leukocyte Esterase Stool Occult Blood COVID-19 ([facility]) COVID-19 Fiber Options Com 08/19/21 08/20/21 08/20/21 03:58 04:49 04:49 WBC 6.6 RBC 3.42 L Hgb 10.5 L Hct 31.3 L MCV 91.5 MCH 30.7 MCHC 33.5 RDW 11.9 Plt Count 290 MPV 10.9 Immature Gran % (Auto) Neut % (Auto) Lymph % (Auto) Gregory % (Auto) Eos % (Auto) Baso % (Auto) Lymph # (Auto) Gregory # (Auto) Eos # (Auto) Baso # (Auto) Abs Immat Gran (auto) Absolute Neuts (auto) Absolute Nucleated RBC 0.000 Nucleated RBC % (auto) 0.0 Sodium 137 139 Potassium 3.4 3.5 Chloride 103 106 Carbon Dioxide 24 27 Anion Gap 13 10 L BUN 12 10 Creatinine 0.77 0.70 Estim Creat Clear Calc 74.8 82.3 Estimated GFR > 60 > 60 Random Glucose 95 Fasting Glucose 103 H Lactic Acid Calcium 7.9 L 7.9 L Total Bilirubin 0.5 AST 15 ALT 15 Alkaline Phosphatase 85 Troponin I High Sens Total Protein 5.4 L Albumin 3.2 L Lipase Alpha Fetoprotein Carcinoembryonic Ag Urine Color Urine Appearance Urine pH Ur Specific [place] Urine Protein Urine Glucose (UA) Urine Ketones Urine Blood Urine Nitrite Ur Leukocyte Esterase Stool Occult Blood COVID-19 ([facility]) COVID-19 Clin Com 08/21/21 08/21/21 08/22/21 05:15 05:15 05:23 WBC 6.0 6.0 RBC 3.38 L 3.32 L Hgb 10.4 L 10.1 L Hct 31.1 L 30.5 L MCV 92.0 91.9 MCH 30.8 30.4 MCHC 33.4 33.1 RDW 11.9 11.9 Plt Count 312 326 MPV 11.2 10.9 Immature Gran % (Auto) Neut % (Auto) Lymph % (Auto) Gregory % (Auto) Eos % (Auto) Baso % (Auto) Lymph # (Auto) Gregory # (Auto) Eos # (Auto) Baso # (Auto) Abs Immat Gran (auto) Absolute Neuts (auto) Absolute Nucleated RBC 0.000 0.000 Nucleated RBC % (auto) 0.0 0.0 Sodium 142 Potassium 3.6 Chloride 107 Carbon Dioxide 23 Anion Gap 16 BUN 6 L Creatinine 0.73 Estim Creat Clear Calc 78.9 Estimated GFR > 60 Random Glucose 107 Fasting Glucose Lactic Acid Calcium 8.1 L Total Bilirubin AST ALT Alkaline Phosphatase Troponin I High Sens Total Protein Albumin Lipase Alpha Fetoprotein Carcinoembryonic Ag Urine Color Urine Appearance Urine pH Ur Specific [place] Urine Protein Urine Glucose (UA) Urine Ketones Urine Blood Urine Nitrite Ur Leukocyte Esterase Stool Occult Blood COVID-19 ([facility]) COVID-19 Clin Com 08/22/21 05:23 WBC RBC Hgb Hct MCV MCH MCHC RDW Plt Count MPV Immature Gran % (Auto) Neut % (Auto) Lymph % (Auto) Gregory % (Auto) Eos % (Auto) Baso % (Auto) Lymph # (Auto) Gregory # (Auto) Eos # (Auto) Baso # (Auto) Abs Immat Gran (auto) Absolute Neuts (auto) Absolute Nucleated RBC Nucleated RBC % (auto) Sodium 141 Potassium 3.6 Chloride 107 Carbon Dioxide 27 Anion Gap 11 L BUN 6 L Creatinine 0.73 Estim Creat Clear Calc 78.9 Estimated GFR > 60 Random Glucose 101 Fasting Glucose Lactic Acid Calcium 8.4 Total Bilirubin AST ALT Alkaline Phosphatase Troponin I High Sens Total Protein Albumin Lipase Alpha Fetoprotein Carcinoembryonic Ag Urine Color Urine Appearance Urine pH Ur Specific [place] Urine Protein Urine Glucose (UA) Urine Ketones Urine Blood Urine Nitrite Ur Leukocyte Esterase Stool Occult Blood COVID-19 ([facility]) COVID-19 Clin Com Airway Mallampati Class: II TM Dist: >3cm Neck ROM: Full Partial: Upper Heart: rrr Lungs: cta Assessment and Plan Assessment Anesthesia Assessment: Anesthesia Plan Discussed and Chart Reviewed Final Anesthetic Review Family History of Problems with Anesthesia: No History of Problems with Anesthesia: No NPO: Yes ASA Class: III Final Preanesthetic Review: No Changes in Pt Med Stat, Meds/Allgs Chart Reviewed and Consent Obtained/Reviewed Patient Risk: Intermediate Procedure Risk: Intermediate Anesthetic Plan Anesthetic Plan: GA Disposition: Standard PACU
--- NOTE | 2021-08-23 13:41 | MHC.CLN ---
F/U NPO WITH PARTIAL GASTRECTOMY PENDING. IF DIET ADVANCED TO CLEAR LIQUIDS, RECOMMEND ADD ENSURE CLEAR TID TO PROVIDE ADDITIONAL 720 KCAL, 24 G PROTEIN. FOLLOW FOR DIET ADVANCEMENT AND PLAN OF CARE.
--- NOTE | 2021-08-23 14:43 | MHC.CM.PN ---
PLAN IS BRONCHO-GASTRECTOMY TODAY AND DC WILL BE DEPENDENT ON STATUS THEREAFTER HE WILL STILL NEED OUTPATIENT ONCOLOGY FOLLOW UP
--- NOTE | 2021-08-23 15:48 | W.PM.OPN ---
Operative Note Operative Note Date of Service: 08/23/21 Narrative: Preoperative diagnosis: Metastatic gastric adenocarcinoma Postoperative diagnosis: Same with invasion of transverse colon, pancreas, and duodenum Procedure: Hand assisted laparoscopy converted to open exploratory laparotomy, palliative gastrojejunostomy, biopsy of lesser omental metastasis Surgeon: Alonso Brush MD Inclusion Manager: Aliza Perdue PA-C Anesthesia: General endotracheal Indications for procedure: 81-year-old male patient presenting with complaints of nausea and vomiting found to have a gastric outlet obstruction. Subsequent endoscopy revealed a obstructing tumor in the distal stomach, biopsy proven adenocarcinoma. Patient presents for palliative partial gastrectomy due to pending obstruction. Operative findings: Greater than 600 mL of gastric fluid noted within stomach at the start of the procedure. Large bulky tumor at the pyloric channel with extension posteriorly into pancreas, duodenum and transverse colon. Tumor found to be unresectable. Multiple omental metastases palpable in the lesser omentum Specimen: Lesser omentum metastasis Estimated blood loss: 50 mL Complications: None Procedure details: Patient was brought to the OR placed. After administering general anesthesia the patient's abdomen was prepped with ChloraPrep and draped in a sterile fashion. A surgical time-out was called the consent confirmed. Patient received preoperative antibiotics and Venodyne boots were in place. Local anesthesia consisting of 0.5% Sensorcaine was infiltrated in the midline just above the umbilicus. A 7.5 cm incision was then created carried down through linea alba into the peritoneal cavity. A hand port was then inserted. It was then insufflated to a pressure of 15 mmHg. A 12 mm trocar was placed in the right upper quadrant and a 5 mm trocar placed in the left upper quadrant. Second 5 mm trocars placed in the upper midline. Patient was placed in reverse Trendelenburg position. The abdomen was explored. Dissection was begun along the greater curvature using a LigaSure to enter the lesser sac. The lesser curvature was dissected both proximally and distally towards the obstructing mass. A large obstructing mass was identified as noted above. The omentum was found to be tethered in the right lower quadrant due to adhesions from a prior appendectomy. Dissection was continued to the lesser curvature with division of the omental attachments. The decision was made to convert to an open procedure due to the size of the tumor palpable. The incision was extended both superiorly and inferiorly. A Prisca maneuver was performed to mobilize the duodenum. Further examination of the tumor revealed invasion into the transverse colon and pancreas as well as a portion of the duodenum. Multiple omental metastases were palpable as well. The decision was made to proceed to a palliative bypass procedure. The jejunum was identified at the ligament of Treitz and a segment of jejunum approximately 40 cm distal to the ligament of Treitz brought up. This was secured to the undersurface of the stomach and secured using Surgilon sutures. An enterotomy was made in the jejunum and gastrotomy made. A BEATRIZ stapler, 60 mm, was then used to create a gastrojejunostomy. The enterotomies were then closed using a TA 60 stapler. The distal limb was then sure to the stomach using a Surgilon suture event distal obstruction. In a similar fashion the proximal segment was secured using a Surgilon suture as well. After assuring adequate hemostasis the anastomosis was returned to the abdominal cavity. A biopsy of the omental metastasis was performed using LigaSure. This was sent to pathology for further examination. After assuring adequate hemostasis the abdomen was irrigated with saline solution and suctioned dry. Fascia was then closed using a running 1 Maxon suture. Fascia was closed superiorly and inferiorly and tied in the center. Skin was then closed using skin jasper. Sterile dressings were then applied. The patient tolerated the procedure well was transferred to PACU in stable condition. Sponge, instrument, needle counts reported as correct.
[2021-08-24] VITALS (7 sets, daily range): BP systolic 111–160; BP diastolic 63–86; PULSE 67–77; RESP 14–18; TEMP 35.9–36.6; O2SAT 95–98
[2021-08-24] MEDS: Morphine Sulfate 2 MG/ML CARTRIDGE 3 MG IVPUSH ×2 (02:53→07:30)
[2021-08-24] MEDS: Dextrose 5 % and Lactated Ring 1,000 ML 125 ML IVCONT ×3 (03:19→19:08)
[2021-08-24 06:30] LABS: Hematocrit 34.4 % (42.0-52.0); Hemoglobin 11.5 g/dl (14.0-18.0); Mean Corpuscular HGB Conc 33.4 g/dl (31.0-36.0); Mean Corpuscular Hemoglobin 30.8 pg (27.0-33.0); Mean Corpuscular Volume 92.2 fL (80.0-98.0); Mean Platelet Volume 10.6 fL (9.4-12.4); Platelet Count 367 X10*3/uL (160-400); Red Blood Count 3.73 X10*6/uL (4.60-5.80); Red Cell Distribution Width 11.9 % (11.0-16.0); White Blood Count 9.9 X10*3/uL (4.8-10.8)
[2021-08-24 06:43] LABS: Anion Gap 12 (12-20); Blood Urea Nitrogen 8 mg/dL (9-16); Calcium 8.6 mg/dL (8.4-10.2); Carbon Dioxide 27 mmol/L (22-29); Chloride 106 mmol/L (96-108); Creatinine Clr Calc Pharmacy 76.8; Estimated Glomerular Filt Rate > 60; Glucose Random 137 mg/dL (60-115); Potassium 4.2 mmol/L (3.3-5.1); Sodium 141 mmol/L (135-145)
--- NOTE | 2021-08-24 09:00 | P.PNIM_ITS ---
Subjective Subjective Date of Service: 08/24/21 <MEMO Pop - Last Filed: 08/24/21 09:19> 08/25/21 <Abhi Noriega MD - Last Filed: 08/25/21 07:59> Interval History: seen and examined this morning s/p laparotomy and palliative gastrojejunostomy NGT in place pt has pain at surgical site and discomfort from NGT <MEMO Pop - Last Filed: 08/24/21 09:19> Review of Systems Review of Systems: Yes all other systems are reviewed and are negative <MEMO Pop - Last Filed: 08/24/21 09:19> Constitutional Constitutional: Denies chills and Denies fever(s) <MEMO Pop - Last Filed: 08/24/21 09:19> Cardiovascular Cardiovascular: Denies chest pain <EMMO Pop - Last Filed: 08/24/21 09:19> Respiratory Respiratory: Denies cough <MEMO Pop - Last Filed: 08/24/21 09:19> Physical Exam Vital Signs: Vital Signs: Last Vital Signs Temp 97.7 F 08/24/21 07:06 Pulse 75 08/24/21 07:06 Resp 17 08/24/21 07:30 BP 160/75 H 08/24/21 07:06 Pulse Ox 97 08/24/21 07:06 BMI result Body Mass Index 20.3 <MEMO Pop Last Filed: 08/24/21 09:19> Const: General: comfortable, no acute distress, awake and Physically active <MEMO Pop - Last Filed: 08/24/21 09:19> Nutritional Appearance: thin <MEMO Pop Last Filed: 08/24/21 09:19> Orientation/consciousness: patient oriented x3 <MEMO Pop Last Filed: 08/24/21 09:19> HENMT: Other: NGT in place draining dark material <MEMO Pop Last Filed: 08/24/21 09:19> Head: Yes normocephalic and Yes atraumatic <MEMO Pop - Last Filed: 08/24/21 09:19> Eyes: Sclerae: sclerae normal <MEMO Pop - Last Filed: 08/24/21 09:19> Resp: Effort & Inspection: normal respiratory effort and no respiratory distress <MEMO Pop - Last Filed: 08/24/21 09:19> Cardio: Rate: regular rate <MEMO Pop - Last Filed: 08/24/21 09:19> Rhythm: regular rhythm <MEMO Pop - Last Filed: 08/24/21 09:19> GI: Other: midline abdominal dressing c/d/i; tenderness at incision site. non- distended <MEMO Pop - Last Filed: 08/24/21 09:19> Neuro: General: patient oriented x3 <MEMO Pop - Last Filed: 08/24/21 09:19> Cranial nerves: Yes CN's II-XII intact bilaterally and Yes Bilaterally intact EOM present <MEMO Pop - Last Filed: 08/24/21 09:19> Extrem: Other: no leg edema <MEMO Pop - Last Filed: 08/24/21 09:19> Objective Data Active Medications Amlodipine Besylate (Amlodipine Besylate 5 Mg Tablet) 5 mg PO DAILY [facility]; Protocol Last Admin: 08/23/21 08:42 Dose: Not Given Documented by: LANIE Non-Admin Reason: NPO Benzocaine (Throat Lozenge, Medicated Lozenge) 1 lozenge MUCOUS MEM Q2H PRN PRN Reason: Sore Throat Last Admin: 08/20/21 19:55 Dose: 1 lozenge Documented by: NEMESIO Dextrose/Lactated Ringer's (D5lr) 1,000 mls @ 125 mls/hr IVCONT .Q8H [facility] Last Admin: 08/24/21 03:19 Dose: 125 mls/hr Documented by: JODI Acetaminophen (Ofirmev) 1,000 mg in 100 mls @ 400 mls/hr IV Q6H [facility] Last Infusion: 08/24/21 03:14 Dose: 0 mls/hr Documented by: JODI Morphine Sulfate (Morphine Sulfate 2 Mg/Ml Cartridge) 3 mg IVPUSH Q3H PRN; Protocol PRN Reason: Pain, Moderate (Pain Scale 4-6 Last Admin: 08/24/21 07:30 Dose: 3 mg Documented by: BEATRIZ Omeprazole (Omeprazole 20 Mg/10 Ml Susp.Recon) 20 mg PO DAILY@0630 [facility] Last Admin: 08/23/21 04:36 Dose: 20 mg Documented by: DEANNA Ondansetron HCl (Ondansetron Hcl 4 Mg/2 Ml Vial) 4 mg IVPUSH Q8H PRN PRN Reason: Nausea and Vomiting Sodium Chloride (0.9 % Sodium Chloride Flush 3 Ml Syringe) 3 ml IVFLUSH QSHIFT [facility] Last Admin: 08/24/21 07:19 Dose: Not Given Documented by: BEATRIZ Non-Admin Reason: IV Running <MEMO Pop - Last Filed: 08/24/21 09:19> Labs CBC & Chem 7: : 08/25/21 05:17 08/25/21 05:17 <MEMO Pop - Last Filed: 08/24/21 09:19> Labs: Laboratory Results - last 24 hr 08/24/21 08/24/21 06:04 06:05 MCV 92.2 MCH 30.8 MCHC 33.4 RDW 11.9 Plt Count 367 MPV 10.6 Absolute Nucleated RBC 0.000 Nucleated RBC % (auto) 0.0 Anion Gap 12 Estim Creat Clear Calc 76.8 Estimated GFR > 60 Random Glucose 137 H D Calcium 8.6 <MEMO Pop - Last Filed: 08/24/21 09:19> Assessment and Plan (1) Gastric adenocarcinoma: Status: Acute <MEMO Pop - Last Filed: 08/24/21 09:19> Assessment and Plan: This is a 81-year-old male with a past medical history of hypertension who presented to the hospital with a abdominal pain, nausea and vomiting found to have gastric mass causing gastric outlet obstruction, hepatic nodule, adrenal nodule. Gastric mass with gastric outlet obstruction s/p EGD 08/20 ulcerated mass at the gastric outlet, biopsies taken, pathology showing gastric adenocarcinoma planned for partial gastrectomy but tumor invasion into the transverse colon, pancreas and duodenum therefore changed to palliative gastrojejunostomy 08/23 seen by oncology, will need PET for staging, possible preop chemo as outpatient continue PPI currently NPO surgery following HTN BP controlled Continue amlodipine HCTZ on hold ?? full code DVT prophylaxis boots Attending Dr. Noriega <MEMO Pop - Last Filed: 08/24/21 09:19> This is a 81-year-old male with a past medical history of hypert ension who presented to the hospital with a abdominal pain, nausea and vomiting found to have gastric mass causing gastric outlet obstruction, hepatic nodule, adrenal nodule. Gastric mass with gastric outlet obstruction s/p EGD 08/20 ulcerated mass at the gastric outlet, biopsies taken, pathology showing gastric adenocarcinoma planned for partial gastrectomy but tumor invasion into the transverse colon, pancreas and duodenum therefore changed to palliative gastrojejunostomy 08/23 seen by oncology, will need PET for staging, possible preop chemo as outpatient continue PPI currently NPO surgery following HTN BP controlled Continue amlodipine HCTZ on hold ?? full code DVT prophylaxis boots Attending Dr. Noriega I personally saw and examined the patient and discussed finding, assessment and plan with the MEMO Abraham and I agree with the above <Abhitoy Noriega MD - Last Filed: 08/25/21 07:59> Quality Stroke Does the patient have a stroke diagnosis?: No <MEMO Pop - Last Filed: 08/24/21 09:19> VTE Prior VTE?: No <MEMO Pop - Last Filed: 08/24/21 09:19> VTE Risk Level:: Medical - moderate - high <MEMO Pop - Last Filed: 08/24/21 09:19> VTE Device Contraindication: N/A - Device Ordered <MEMO Pop - Last Filed: 08/24/21 09:19> VTE Drug Contraindication: Treatment Not Indicated <MEMO Pop - Last Filed: 08/24/21 09:19>
--- NOTE | 2021-08-24 09:07 | P.PNGS_ITS ---
Subjective Subjective Date of Service: 08/24/21 Interval history: Patient complains of back pain from lying in bed. Had trouble getting comfortable throughout the night. Pain medication does help but wears off quickly. Physical Exam Vital Signs: Vital Signs: Last Vital Signs Temp 97.7 F 08/24/21 07:06 Pulse 75 08/24/21 07:06 Resp 17 08/24/21 07:30 BP 160/75 H 08/24/21 07:06 Pulse Ox 97 08/24/21 07:06 BMI result Body Mass Index 20.3 Const: Other: Awake of lower General: no acute distress and alert Nutri tional Appearance: thin Orientation/consciousness: patient oriented x3 Resp: Effort & Inspection: normal respiratory effort, no audible wheezes, no cough and no respiratory distress GI: Inspection: Yes normal to inspection Palpation (GI): Soft to palpation and Tenderness to palpation present (GI) (Incisional) Percussion: Yes dullness to percussion Skin: General skin exam: no rashes or lesions noted Neuro: General: patient oriented x3 Extrem: General: Yes normal to inspection and Yes no clubbing, cyanosis or edema Objective Data Active Medications Amlodipine Besylate (Amlodipine Besylate 5 Mg Tablet) 5 mg PO DAILY [facility]; Protocol Last Admin: 08/23/21 08:42 Dose: Not Given Documented by: LANIE Non-Admin Reason: NPO Benzocaine (Throat Lozenge, Medicated Lozenge) 1 lozenge MUCOUS MEM Q2H PRN PRN Reason: Sore Throat Last Admin: 08/20/21 19:55 Dose: 1 lozenge Documented by: NEMESIO Dextrose/Lactated Ringer's (D5lr) 1,000 mls @ 125 mls/hr IVCONT .Q8H [facility] Last Admin: 08/24/21 03:19 Dose: 125 mls/hr Documented by: JODI Acetaminophen (Ofirmev) 1,000 mg in 100 mls @ 400 mls/hr IV Q6H [facility] Last Admin: 08/24/21 08:59 Dose: 400 mls/hr Documented by: COTEMA Morphine Sulfate (Morphine Sulfate 2 Mg/Ml Cartridge) 3 mg IVPUSH Q3H PRN; Protocol PRN Reason: Pain, Moderate (Pain Scale 4-6 Last Admin: 08/24/21 07:30 Dose: 3 mg Documented by: COTEMA Omeprazole (Omeprazole 20 Mg/10 Ml Susp.Recon) 20 mg PO DAILY@0630 [facility] Last Admin: 08/23/21 04:36 Dose: 20 mg Documented by: DEANNA Ondansetron HCl (Ondansetron Hcl 4 Mg/2 Ml Vial) 4 mg IVPUSH Q8H PRN PRN Reason: Nausea and Vomiting Sodium Chloride (0.9 % Sodium Chloride Flush 3 Ml Syringe) 3 ml IVFLUSH QSHIFT [facility] Last Admin: 08/24/21 07:19 Dose: Not Given Documented by: COTBECKY Non-Admin Reason: IV Running Labs CBC & Chem 7: 08/24/21 06:05 08/24/21 06:04 Labs: Laboratory Results - last 24 hr 08/24/21 08/24/21 06:04 06:05 MCV 92.2 MCH 30.8 MCHC 33.4 RDW 11.9 Plt Count 367 MPV 10.6 Absolute Nucleated RBC 0.000 Nucleated RBC % (auto) 0.0 Anion Gap 12 Estim Creat Clear Calc 76.8 Estimated GFR > 60 Random Glucose 137 H D Calcium 8.6 Procedures Date of Service Date of Service: 08/24/21 Progress Note: A&P Assessment and plan (1) Gastric adenocarcinoma: Status: Acute (2) Gastric out let obstruction: Status: Acute Assessment and Plan: 81-year-old male patient with gastric outlet obstruction found to have a gastric adenocarcinoma. He is now postop day 1 S/P exploratory laparotomy with gastrojejunostomy. Patient was found to have a large bulky tumor invading the transverse colon and pancreas with evidence of metastases within the omentum. Tumor was found to be unresectable and a bypass procedure performed palliation. Patient was informed of the operative findings today and the reason for bypass. Plan includes increased pain medication and decreased duration to control p ostoperative pain. Will continue nasogastric tube decompression until output decreases. Encouraged out of bed and incentive spirometry. Await pathology results of omental biopsies. Fall Risk Details Current Medications: Current Medications Amlodipine Besylate (Amlodipine Besylate 5 Mg Tablet) 5 mg PO DAILY [facility]; Protocol Last Admin: 08/23/21 08:42 Dose: Not Given Documented by: Benzocaine (Throat Lozenge, Medicated Lozenge) 1 lozenge MUCOUS MEM Q2H PRN PRN Reason: Sore Throat Last Admin: 08/20/21 19:55 Dose: 1 lozenge Documented by: Dextrose/Lactated Ringer's (D5lr) 1,000 mls @ 125 mls/hr IVCONT .Q8H [facility] Last Admin: 08/24/21 03:19 Dose: 125 mls/hr Documented by: Acetaminophen (Ofirmev) 1,000 mg in 100 mls @ 400 mls/hr IV Q6H [facility] Last Admin: 08/24/21 08:59 Dose: 400 mls/hr Documented by: Morphine Sulfate (Morphine Sulfate 2 Mg/Ml Cartridge) 3 mg IVPUSH Q3H PRN; Protocol PRN Reason: Pain, Moderate (Pain Scale 4-6 Last Admin: 08/24/21 07:30 Dose: 3 mg Documented by: Omeprazole (Omeprazole 20 Mg/10 Ml Susp.Recon) 20 mg PO DAILY@0630 [facility] Last Admin: 08/23/21 04:36 Dose: 20 mg Documented by: Ondansetron HCl (Ondansetron Hcl 4 Mg/2 Ml Vial) 4 mg IVPUSH Q8H PRN PRN Reason: Nausea and Vomiting Sodium Chloride (0.9 % Sodium Chloride Flush 3 Ml Syringe) 3 ml IVFLUSH QSHIFT [facility] Last Admin: 08/24/21 07:19 Dose: Not Given Documented by: Time Spent With Patient Time: Total time spent is greater than 50% in coordination of care (as documented) at patient's floor/unit and/or counseling patient: Time with patient: 15 - 24 minutes No Severe Sepsis: No Severe Sepsis Quality Stroke Does the patient have a stroke diagnosis?: No VTE Prior VTE?: No VTE Risk Level:: Medical - moderate - high VTE Device Contraindication: N/A - Device Ordered VTE Drug Contraindication: Treatment Not Indicated
[2021-08-24] MEDS: Morphine Sulfate 2 MG/ML CARTRIDGE 4 MG IVPUSH (09:29)
[2021-08-24] MEDS: Lidocaine 4 % Patch ADH..PATCH 1 PATCH TRANSDERMA (09:29)
[2021-08-24] MEDS: Throat Lozenge, Medicated LOZENGE 1 LOZENGE MUCOUS MEM (16:52)
[2021-08-25] VITALS (7 sets, daily range): BP systolic 138–161; BP diastolic 60–78; PULSE 65–72; RESP 16–20; TEMP 36.2–36.9; O2SAT 95–100
[2021-08-25] MEDS: Morphine Sulfate 2 MG/ML CARTRIDGE 4 MG IVPUSH (02:04)
[2021-08-25] MEDS: Dextrose 5 % and Lactated Ring 1,000 ML 125 ML IVCONT ×3 (02:05→19:30)
[2021-08-25 05:50] LABS: MANUAL DIFF FLAG NO
[2021-08-25 05:53] LABS: Basophils Percent Auto 0.4 % (0-2); Eosinophils Absolute Auto 0.3 X10*3/uL (0.0-0.4); Eosinophils Percent Auto 3.1 % (0-4); Hemoglobin 10.9 g/dl (14.0-18.0); Imm Gran Abs Auto 0.04 X10*3/uL (0.00-0.03); Imm Gran Pct Auto 0.5 % (0.0-0.4); Lymphocytes Absolute Auto 1.2 X10*3/uL (1.2-4.9); Lymphocytes Percent Auto 15.1 % (20-40); Mean Corpuscular Hemoglobin 30.7 pg (27.0-33.0); Mean Platelet Volume 10.8 fL (9.4-12.4); Monocytes Absolute Auto 0.8 X10*3/uL (0.1-1.2); Monocytes Percent Auto 9.6 % (2-11); Neutrophils Absolute Auto 5.7 x10*3/uL (2.0-8.3); Neutrophils Percent Auto 71.3 % (45-73); Platelet Count 369 X10*3/uL (160-400); Red Blood Count 3.55 X10*6/uL (4.60-5.80); Red Cell Distribution Width 12.1 % (11.0-16.0)
[2021-08-25 06:24] LABS: Anion Gap 9 (12-20); Blood Urea Nitrogen 9 mg/dL (9-16); Calcium 8.1 mg/dL (8.4-10.2); Carbon Dioxide 29 mmol/L (22-29); Chloride 108 mmol/L (96-108); Creatinine Clr Calc Pharmacy 82.3; Estimated Glomerular Filt Rate > 60; Glucose Random 98 mg/dL (60-115); Potassium 3.9 mmol/L (3.3-5.1); Sodium 142 mmol/L (135-145)
[2021-08-25] MEDS: Throat Lozenge, Medicated LOZENGE 1 LOZENGE MUCOUS MEM ×2 (08:35→15:12)
[2021-08-25] MEDS: Lidocaine 4 % Patch ADH..PATCH 1 PATCH TRANSDERMA (08:35)
--- NOTE | 2021-08-25 10:02 | P.PNGS_ITS ---
Subjective Subjective Date of Service: 08/25/21 Interval history: says NGT is uncomfortable denies new complaints good pain control no N/V Physical Exam Vital Signs: Vital Signs: Last Vital Signs Temp 97.4 F 08/25/21 07:06 Pulse 72 08/25/21 07:06 Resp 18 08/25/21 07:06 BP 158/78 H 08/25/21 07:06 Pulse Ox 99 08/25/21 07:06 BMI result Body Mass Index 20.3 Const: General: comfortable and no acute distress Resp: Effort & Inspection: normal respiratory effort Cardio: Rate: regular rate GI: Other: soft, nondistended, incision clean and dry, [place] - clear serous Objective Data Active Medications Amlodipine Besylate (Amlodipine Besylate 5 Mg Tablet) 5 mg PO DAILY [facility]; Protocol Last Admin: 08/23/21 08:42 Dose: Not Given Documented by: LANIE Non-Admin Reason: NPO Benzocaine (Throat Lozenge, Medicated Lozenge) 1 lozenge MUCOUS MEM Q2H PRN PRN Reason: Sore Throat Last Admin: 08/25/21 08:35 Dose: 1 lozenge Documented by: CURTISEMA Dextrose/Lactated Ringer's (D5lr) 1,000 mls @ 125 mls/hr IVCONT .Q8H [facility] Last Admin: 08/25/21 02:05 Dose: 125 mls/hr Documented by: ADALGISA Acetaminophen (Ofirmev) 1,000 mg in 100 mls @ 400 mls/hr IV Q6H [facility] Last Infusion: 08/25/21 09:08 Dose: 0 mls/hr Documented by: COTBECKY Lidocaine (Lidocaine 4 % Patch Adh..Patch) 1 patch TRANSDERMA DAILY [facility]; Protocol Last Admin: 08/25/21 08:35 Dose: 1 patch Documented by: COTEMA Morphine Sulfate (Morphine Sulfate 2 Mg/Ml Cartridge) 4 mg IVPUSH Q2H PRN; Protocol PRN Reason: Pain, Moderate (Pain Scale 4-6 Last Admin: 08/25/21 02:04 Dose: 4 mg Documented by: ADALGISA Multi-Ingred Medicated Throat [place] (Throat [place], Medicated 20 Ml Bottle) 1 spray MUCOUS MEM Q2H PRN PRN Reason: Sore Throat Omeprazole (Omeprazole 20 Mg/10 Ml Susp.Recon) 20 mg PO DAILY@0630 [facility] Last Admin: 08/23/21 04:36 Dose: 20 mg Documented by: DEANNA Ondansetron HCl (Ondansetron Hcl 4 Mg/2 Ml Vial) 4 mg IVPUSH Q8H PRN PRN Reason: Nausea and Vomiting Sodium Chloride (0.9 % Sodium Chloride Flush 3 Ml Syringe) 3 ml IVFLUSH QSHIFT [facility] Last Admin: 08/25/21 07:03 Dose: Not Given Documented by: BEATRIZ Non-Admin Reason: IV Running Labs CBC & Chem 7: 08/25/21 05:17 08/25/21 05:17 Labs: Laboratory Results - last 24 hr 08/25/21 08/25/21 05:17 05:17 MCV 93.0 MCH 30.7 MCHC 33.0 RDW 12.1 Plt Count 369 MPV 10.8 Immature Gran % (Auto) 0.5 H Neut % (Auto) 71.3 Lymph % (Auto) 15.1 L [place] % (Auto) 9.6 Eos % (Auto) 3.1 Baso % (Auto) 0.4 Lymph # (Auto) 1.2 [place] # (Auto) 0.8 Eos # (Auto) 0.3 Baso # (Auto) 0.0 Abs Immat Gran (auto) 0.04 H Absolute Neuts (auto) 5.7 Absolute Nucleated RBC 0.000 Nucleated RBC % (auto) 0.0 Anion Gap 9 L Estim Creat Clear Calc 82.3 Estimated GFR > 60 Random Glucose 98 Calcium 8.1 L Procedures Date of Service Date of Service: 08/25/21 Progress Note: A&P Assessment and plan (1) Gastric adenocarcinoma: Status: Acute Assessment and Plan: S/P Gastojej bypass looks well depressed NGT likely ready to be removed tomorrow MAYNOR clear OOB, ambulate looks well overall labs ok Fall Risk Details Current Medications: Current Medications Amlodipine Besylate (Amlodipine Besylate 5 Mg Tablet) 5 mg PO DAILY [facility]; Protocol Last Admin: 08/23/21 08:42 Dose: Not Given Documented by: Benzocaine (Throat Lozenge, Medicated Lozenge) 1 lozenge MUCOUS MEM Q2H PRN PRN Reason: Sore Throat Last Admin: 08/25/21 08:35 Dose: 1 lozenge Documented by: Dextrose/Lactated Ringer's (D5lr) 1,000 mls @ 125 mls/hr IVCONT .Q8H [facility] Last Admin: 08/25/21 02:05 Dose: 125 mls/hr Documented by: Acetaminophen (Ofirmev) 1,000 mg in 100 mls @ 400 mls/hr IV Q6H [facility] Last Infusion: 08/25/21 09:08 Dose: Infused Documented by: Lidocaine (Lidocaine 4 % Patch Adh..Patch) 1 patch TRANSDERMA DAILY [facility]; Protocol Last Admin: 08/25/21 08:35 Dose: 1 patch Documented by: Morphine Sulfate (Morphine Sulfate 2 Mg/Ml Cartridge) 4 mg IVPUSH Q2H PRN; Protocol PRN Reason: Pain, Moderate (Pain Scale 4-6 Last Admin: 08/25/21 02:04 Dose: 4 mg Documented by: Multi-Ingred Medicated Throat [place] (Throat [place], Medicated 20 Ml Bottle) 1 spray MUCOUS MEM Q2H PRN PRN Reason: Sore Throat Omeprazole (Omeprazole 20 Mg/10 Ml Susp.Recon) 20 mg PO DAILY@0630 [facility] Last Admin: 08/23/21 04:36 Dose: 20 mg Documented by: Ondansetron HCl (Ondansetron Hcl 4 Mg/2 Ml Vial) 4 mg IVPUSH Q8H PRN PRN Reason: Nausea and Vomiting Sodium Chloride (0.9 % Sodium Chloride Flush 3 Ml Syringe) 3 ml IVFLUSH QSHIFT [facility] Last Admin: 08/25/21 07:03 Dose: Not Given Documented by: Time Spent With Patient Time: Total time spent is greater than 50% in coordination of care (as documented) at patient's floor/unit and/or counseling patient: Time with patient: 15 - 24 minutes Quality Stroke Does the patient have a stroke diagnosis?: No VTE Prior VTE?: No VTE Risk Level:: Medical - moderate - high VTE Device Contraindication: N/A - Device Ordered VTE Drug Contraindication: Treatment Not Indicated
--- NOTE | 2021-08-25 11:17 | HO.PM.IMPN ---
Subjective Subjective Date of Service: 08/25/21 <MEMO Pop - Last Filed: 08/25/21 11:57> 08/26/21 <Abhi Noriega MD - Last Filed: 08/26/21 08:59> Interval History: Seen and examined this morning Follow-up for gastric adenocarcinoma/gastric outlet obstruction postop day 2 status post palliative gastrojejunostomy Patient unhappy about having NG tube, sore throat Abdomen more comfortable than yesterday <MEMO Pop - Last Filed: 08/25/21 11:57> Review of Systems Review of Systems: Yes all other systems are reviewed and are negative <MEMO Pop - Last Filed: 08/25/21 11:57> Constitutional Constitutional: Denies chills and Denies fever(s) <MEMO Pop - Last Filed: 08/25/21 11:57> Cardiovascular Cardiovascular: Denies chest pain <MEMO Pop - Last Filed: 08/25/21 11:57> Respiratory Respiratory: Denies cough <MEMO Pop - Last Filed: 08/25/21 11:57> Physical Exam Vital Signs: Vital Signs: Last Vital Signs Temp 97.4 F 08/25/21 07:06 Pulse 72 08/25/21 07:06 Resp 18 08/25/21 07:06 BP 158/78 H 08/25/21 07:06 Pulse Ox 99 08/25/21 07:06 BMI result Body Mass Index 20.3 <MEMO Pop - Last Filed: 08/25/21 11:57> Const: General: comfortable, no acute distress, awake and Physically active <MEMO Pop - Last Filed: 08/25/21 11:57> Nutritional Appearance: thin <MEMO Pop Last Filed: 08/25/21 11:57> Orientation/consciousness: patient oriented x3 <MEMO Pop - Last Filed: 08/25/21 11:57> HENMT: Other: NGT in place draining dark material <MEMO Pop - Last Filed: 08/25/21 11:57> Head: Yes normocephalic and Yes atraumatic <MEMO Pop - Last Filed: 08/25/21 11:57> Eyes: Sclerae: sclerae normal <MEMO Pop Last Filed: 08/25/21 11:57> Resp: Effort & Inspection: normal respiratory effort and no respiratory distress <MEMO Pop - Last Filed: 08/25/21 11:57> Cardio: Rate: regular rate <MEMO Pop Last Filed: 08/25/21 11:57> Rhythm: regular rhythm <MEMO Pop - Last Filed: 08/25/21 11:57> GI: Other: midline abdominal dressing c/d/i; tenderness at incision site. abdomen soft, non-distended <MEMO Pop Last Filed: 08/25/21 11:57> Neuro: General: patient oriented x3 <MEMO Pop Last Filed: 08/25/21 11:57> Cranial nerves: Yes CN's II-XII intact bilaterally and Yes Bilaterally intact EOM present <MEMO Pop - Last Filed: 08/25/21 11:57> Extrem: Other: no leg edema; able to move all four extremities spontaneously <MEMO Pop Last Filed: 08/25/21 11:57> Objective Data Active Medications Amlodipine Besylate (Amlodipine Besylate 5 Mg Tablet) 5 mg PO DAILY [facility]; Protocol Last Admin: 08/23/21 08:42 Dose: Not Given Documented by: LANIE Non-Admin Reason: NPO Benzocaine (Throat Lozenge, Medicated Lozenge) 1 lozenge MUCOUS MEM Q2H PRN PRN Reason: Sore Throat Last Admin: 08/25/21 08:35 Dose: 1 lozenge Documented by: COTEMA Dextrose/Lactated Ringer's (D5lr) 1,000 mls @ 125 mls/hr IVCONT .Q8H [facility] Last Infusion: 08/25/21 11:02 Dose: 0 mls/hr Documented by: COTEMA Acetaminophen (Ofirmev) 1,000 mg in 100 mls @ 400 mls/hr IV Q6H [facility] Last Infusion: 08/25/21 09:08 Dose: 0 mls/hr Documented by: COTBECKY Lidocaine (Lidocaine 4 % Patch Adh..Patch) 1 patch TRANSDERMA DAILY [facility]; Protocol Last Admin: 08/25/21 08:35 Dose: 1 patch Documented by: COTBECKY Morphine Sulfate (Morphine Sulfate 2 Mg/Ml Cartridge) 4 mg IVPUSH Q2H PRN; Protocol PRN Reason: Pain, Moderate (Pain Scale 4-6 Last Admin: 08/25/21 02:04 Dose: 4 mg Documented by: ADALGISA Multi-Ingred Medicated Throat [place] (Throat [place], Medicated 20 Ml Bottle) 1 spray MUCOUS MEM Q2H PRN PRN Reason: Sore Throat Omeprazole (Omeprazole 20 Mg/10 Ml Susp.Recon) 20 mg PO DAILY@0630 [facility] Last Admin: 08/23/21 04:36 Dose: 20 mg Documented by: DEANNA Ondansetron HCl (Ondansetron Hcl 4 Mg/2 Ml Vial) 4 mg IVPUSH Q8H PRN PRN Reason: Nausea and Vomiting Sodium Chloride (0.9 % Sodium Chloride Flush 3 Ml Syringe) 3 ml IVFLUSH QSHIFT [facility] Last Admin: 08/25/21 07:03 Dose: Not Given Documented by: BEATRIZ Non-Admin Reason: IV Running <MEMO Pop - Last Filed: 08/25/21 11:57> Labs CBC & Chem 7: : 08/26/21 03:54 08/26/21 03:54 <MEMO Pop - Last Filed: 08/25/21 11:57> Labs: Laboratory Results - last 24 hr 08/25/21 08/25/21 05:17 05:17 MCV 93.0 MCH 30.7 MCHC 33.0 RDW 12.1 Plt Count 369 MPV 10.8 Immature Gran % (Auto) 0.5 H Neut % (Auto) 71.3 Lymph % (Auto) 15.1 L [place] % (Auto) 9.6 Eos % (Auto) 3.1 Baso % (Auto) 0.4 Lymph # (Auto) 1.2 [place] # (Auto) 0.8 Eos # (Auto) 0.3 Baso # (Auto) 0.0 Abs Immat Gran (auto) 0.04 H Absolute Neuts (auto) 5.7 Absolute Nucleated RBC 0.000 Nucleated RBC % (auto) 0.0 Anion Gap 9 L Estim Creat Clear Calc 82.3 Estimated GFR > 60 Random Glucose 98 Calcium 8.1 L <MEMO Pop Last Filed: 08/25/21 11:57> Assessment and Plan (1) Gastric adenocarcinoma: Status: Acute <MEMO Pop Last Filed: 08/25/21 11:57> (2) Gastric out let obstruction: Status: Acute <MEMO Pop Last Filed: 08/25/21 11:57> Assessment and Plan: This is a 81-year-old male with a past medical history of hypertension who presented to the hospital with a abdominal pain, nausea and vomiting found to have gastric mass causing gastric outlet obstruction, hepatic nodule, adrenal nodule. Gastric mass with gastric outlet obstruction s/p EGD 08/20 ulcerated mass at the gastric outlet, biopsies taken, pathology showing gastric adenocarcinoma planned for partial gastrectomy but tumor invasion into the transverse colon, pancreas and duodenum therefore changed to palliative gastrojejunostomy 08/23 seen by oncology, will need PET for staging, possible preop chemo as outpatient continue PPI currently NPO with NGT surgery following pathology from omental biopsies pending HTN BP trending up following surgery will increase dose of Norvasc HCTZ on hold ?? full code DVT prophylaxis boots Attending Dr. Noriega <MEMO Pop - Last Filed: 08/25/21 11:57> Quality Stroke Does the patient have a stroke diagnosis?: No <MEMO Pop Last Filed: 08/25/21 11:57> VTE Prior VTE?: No <MEMO Pop Last Filed: 08/25/21 11:57> VTE Risk Level:: Medical - moderate - high <MEMO Pop Last Filed: 08/25/21 11:57> VTE Device Contraindication: N/A - Device Ordered <MEMO Pop Last Filed: 08/25/21 11:57> VTE Drug Contraindication: Treatment Not Indicated <MEMO Pop Last Filed: 08/25/21 11:57>
--- NOTE | 2021-08-25 12:20 | HO.POSTANES ---
Post Anesthesia Evaluation Post Anesthesia Evaluation Vital Signs: Vital Signs Temp Pulse Resp BP Pulse Ox 08/25/21 11:28 97.4 F 68 20 138/72 98 08/25/21 07:06 97.4 F 72 18 158/78 H 99 08/25/21 03:51 98 F 65 16 140/60 H 97 Anesthesia: General Endotracheal-GETA Mental Status: Awake Pain Control: Satisfactory Nausea/Vomiting: None Hydration: Adequate Anesthesia-Related Issues: No Anes. Related Issues
[2021-08-26] VITALS (8 sets, daily range): BP systolic 100–178; BP diastolic 43–81; PULSE 63–85; RESP 15–18; TEMP 36.2–37.1; O2SAT 94–99; BMI 20.3
[2021-08-26] MEDS: Morphine Sulfate 2 MG/ML CARTRIDGE 4 MG IVPUSH (00:49)
[2021-08-26] MEDS: Dextrose 5 % and Lactated Ring 1,000 ML 125 ML IVCONT ×2 (03:51→10:31)
[2021-08-26 04:19] LABS: MANUAL DIFF FLAG NO
[2021-08-26 04:28] LABS: Basophils Absolute Auto 0.1 X10*3/uL (0.0-0.2); Basophils Percent Auto 0.6 % (0-2); Eosinophils Absolute Auto 0.5 X10*3/uL (0.0-0.4); Eosinophils Percent Auto 6.4 % (0-4); Hematocrit 31.5 % (42.0-52.0); Hemoglobin 10.3 g/dl (14.0-18.0); Imm Gran Abs Auto 0.03 X10*3/uL (0.00-0.03); Imm Gran Pct Auto 0.4 % (0.0-0.4); Lymphocytes Absolute Auto 1.2 X10*3/uL (1.2-4.9); Lymphocytes Percent Auto 15.1 % (20-40); Mean Corpuscular HGB Conc 32.7 g/dl (31.0-36.0); Mean Corpuscular Hemoglobin 30.5 pg (27.0-33.0); Mean Corpuscular Volume 93.2 fL (80.0-98.0); Mean Platelet Volume 10.4 fL (9.4-12.4); Monocytes Absolute Auto 0.8 X10*3/uL (0.1-1.2); Monocytes Percent Auto 9.9 % (2-11); Neutrophils Absolute Auto 5.4 x10*3/uL (2.0-8.3); Neutrophils Percent Auto 67.6 % (45-73); Platelet Count 358 X10*3/uL (160-400); Red Blood Count 3.38 X10*6/uL (4.60-5.80)
[2021-08-26 04:53] LABS: Anion Gap 9 (12-20); Blood Urea Nitrogen 8 mg/dL (9-16); Calcium 8.3 mg/dL (8.4-10.2); Carbon Dioxide 29 mmol/L (22-29); Chloride 107 mmol/L (96-108); Creatinine Clr Calc Pharmacy 84.7; Estimated Glomerular Filt Rate > 60; Glucose Random 99 mg/dL (60-115); Potassium 3.7 mmol/L (3.3-5.1); Sodium 141 mmol/L (135-145)
[2021-08-26] MEDS: Throat Lozenge, Medicated LOZENGE 1 LOZENGE MUCOUS MEM ×2 (07:56→20:53)
[2021-08-26] MEDS: 0.9 % Sodium Chloride Flush 3 ML SYRINGE IVFLUSH (07:56)
[2021-08-26] MEDS: amLODIPine Besylate 10 MG TABLET NG-TUBE (09:13)
[2021-08-26] MEDS: Lidocaine 4 % Patch ADH..PATCH 1 PATCH TRANSDERMA (10:25)
--- NOTE | 2021-08-26 10:57 | HO.PM.IMPN ---
Subjective Subjective Date of Service: 08/26/21 Interval History: Seen and examined this morning Follow-up for gastric adenocarcinoma/gastric outlet obstruction postop day 3 status post palliative gastrojejunostomy Patient unhappy about having NG tube, feels hungry and would like to eat, NGT is draining less Abdomen more comfortable than yesterday Review of Systems has some abdominal pain, no fever, n/v Physical Exam Vital Signs: Vital Signs: Last Vital Signs Temp 98.8 F 08/26/21 07:11 Pulse 72 08/26/21 09:13 Resp 18 08/26/21 07:11 BP 162/79 H 08/26/21 09:13 Pulse Ox 98 08/26/21 07:11 BMI result Body Mass Index 20.3 Const: Other: General: AO X 3, no acute distress Resp: CTA bilateral CVS: S1,S2,RRR GI: +BS, NT, no distention Skin: No rash Neuro: motor grossly intact Psych: appropriate affect Objective Data Active Medications Amlodipine Besylate (Amlodipine Besylate 10 Mg Tablet) 10 mg NG-TUBE DAILY [facility]; Protocol Last Admin: 08/26/21 09:13 Dose: 10 mg Documented by: ZA Benzocaine (Throat Lozenge, Medicated Lozenge) 1 lozenge MUCOUS MEM Q2H PRN PRN Reason: Sore Throat Last Admin: 08/26/21 07:56 Dose: 1 lozenge Documented by: ZA Dextrose/Lactated Ringer's (D5lr) 1,000 mls @ 125 mls/hr IVCONT .Q8H TANO Last Admin: 08/26/21 10:31 Dose: 125 mls/hr Documented by: ZA Acetaminophen (Ofirmev) 1,000 mg in 100 mls @ 400 mls/hr IV Q6H [facility]ANO Last Admin: 08/26/21 09:15 Dose: 400 mls/hr Documented by: ZA Comments: Order Lidocaine (Lidocaine 4 % Patch Adh..Patch) 1 patch TRANSDERMA DAILY [facility]; Protocol Last Admin: 08/26/21 10:25 Dose: 1 patch Documented by: ZA Morphine Sulfate (Morphine Sulfate 2 Mg/Ml Cartridge) 4 mg IVPUSH Q2H PRN; Protocol PRN Reason: Pain, Moderate (Pain Scale 4-6 Last Admin: 08/26/21 00:49 Dose: 4 mg Documented by: DONY Multi-Ingred Medicated Throat [place] (Throat [place], Medicated 20 Ml Bottle) 1 spray MUCOUS MEM Q2H PRN PRN Reason: Sore Throat Omeprazole (Omeprazole 20 Mg/10 Ml Susp.Recon) 20 mg PO DAILY@0630 [facility] Last Admin: 08/23/21 04:36 Dose: 20 mg Documented by: DEANNA Ondansetron HCl (Ondansetron Hcl 4 Mg/2 Ml Vial) 4 mg IVPUSH Q8H PRN PRN Reason: Nausea and Vomiting Sodium Chloride (0.9 % Sodium Chloride Flush 3 Ml Syringe) 3 ml IVFLUSH QSHIFT [facility] Last Admin: 08/26/21 07:56 Dose: 3 ml Documented by: ZA Labs CBC & Chem 7: 08/26/21 03:54 08/26/21 03:54 Labs: Laboratory Results - last 24 hr 08/26/21 08/26/21 03:54 03:54 MCV 93.2 MCH 30.5 MCHC 32.7 RDW 12.0 Plt Count 358 MPV 10.4 Immature Gran % (Auto) 0.4 Neut % (Auto) 67.6 Lymph % (Auto) 15.1 L [place] % (Auto) 9.9 Eos % (Auto) 6.4 H Baso % (Auto) 0.6 Lymph # (Auto) 1.2 [place] # (Auto) 0.8 Eos # (Auto) 0.5 H Baso # (Auto) 0.1 Abs Immat Gran (auto) 0.03 Absolute Neuts (auto) 5.4 Absolute Nucleated RBC 0.000 Nucleated RBC % (auto) 0.0 Anion Gap 9 L Estim Creat Clear Calc 84.7 Estimated GFR > 60 Random Glucose 99 Calcium 8.3 L Assessment and Plan (1) Gastric adenocarcinoma: Status: Acute (2) Gastric out let obstruction: Status: Acute (3) Gastric mass: Status: Acute Assessment and Plan: 81-year-old male with a past medical history of hypertension who presented to the hospital with a abdominal pain, nausea and vomiting found to have gastric mass causing gastric outlet obstruction, hepatic nodule, adrenal nodule. Gastric mass with gastric outlet obstruction s/p EGD 08/20 ulcerated mass at the gastric outlet, biopsies taken, pathology showing gastric adenocarcinoma planned for partial gastrectomy but tumor invasion into the transverse colon, pancreas and duodenum therefore changed to palliative gastrojejunostomy 08/23 seen by oncology, will need PET for staging, possible preop chemo as outpatient continue PPI currently NPO with NGT surgery to decide on NGT and feeding, ? need for TPN pathology from omental biopsies is still pending HTN--on higher news assistant, continue Norvasc for now, HCTZ on hold full code DVT prophylaxis boots Attending Dr. Noriega Quality Stroke Does the patient have a stroke diagnosis?: No VTE Prior VTE?: No VTE Risk Level:: Medical - moderate - high VTE Device Contraindication: N/A - Device Ordered VTE Drug Contraindication: Treatment Not Indicated
--- NOTE | 2021-08-26 13:22 | MHC.CLN ---
F/U CURRENTLY NPO WITH NGT S/P GASTROJEJUNOSTOMY. DIET HAS NOT PROVIDED ADEQUATE CALORIES SINCE 08/15 (X 11 DAYS) WITH HIGHEST DIET=FULL LIQUIDS PRIOR TO SURGERY. NUTRITION DX NON SEVERE MALNUTRITION IN THE CONTEXT OF CHRONIC ILLNESS. SURGEON TO TRIAL CLAMP OF NGT TODAY. MONITOR FOR DIET ADVANCEMENT/TOLERANCE. CONSIDER PPN/TPN FOR NUTRITIONAL SUPPORT IF UNABLE TO MEET NUTRITIONAL NEEDS VIA PO.
[2021-08-26 13:38] LABS: Glucose, Whole Blood 79 mg/dL (60-115)
--- NOTE | 2021-08-26 15:12 | MHC.CM.PN ---
NURSE SMOKE JUMPER CROSS COVERING S/P CONVERTED OPEN EXP LAPAROTOMY PALLATIVE GASTROJEJUNOSTOMY, SECONDARY TO GASTRIC OUTLET OBSTRUCTION, CURRENLTY NPO WITH NG-TUBE PLAN TO TRIAL CLAMPING NG TUBE , MONITOR TOLERANCE AND THEN SLOWLY DIET ADVANCEMENT, PER GEOSPATIAL IMAGE ANALYST CONSIDER TRIAL OF PPN/TPN FOR NUTRITIONAL SUPPORT, POST DISCHARGE WILL NEED PET SCAN OUT PATIENT AND CHEMO DISCHARGE PLANT BE FURTHER DETERMIND. SMOKE JUMPER TO CONTINUE TO FOLLOW HOME WITH [facility] VS STR
--- NOTE | 2021-08-26 15:47 | P.PNGS_ITS ---
Subjective Subjective Date of Service: 08/26/21 Interval history: Reports nasal soreness from the NGT; failed clamping trial. Denies nausea or vomiting Physical Exam Vital Signs: Vital Signs: Last Vital Signs Temp 97.2 F 08/26/21 15:29 Pulse 75 08/26/21 15:29 Resp 15 08/26/21 15:29 BP 145/43 H 08/26/21 15:29 Pulse Ox 96 08/26/21 15:29 BMI result Body Mass Index 20.3 Const: General: alert Nutritional Appearance: thin Orientation/ consciousness: patient oriented x3 Limitations: no limitations HENMT: Head: Yes normocephalic and Yes atraumatic Resp: Effort & Inspection: normal respiratory effort GI: Inspection: Yes normal to inspection Palpation (GI): Soft to palpation, Tenderness to palpation present (GI), no guarding and not rigid Percussion: Yes normal to percussion Neuro: General: patient oriented x3 Extrem: General: Yes normal to inspection Objective Data Active Medications Amlodipine Besylate (Amlodipine Besylate 10 Mg Tablet) 10 mg NG-TUBE DAILY [facility]; Protocol Last Admin: 08/26/21 09:13 Dose: 10 mg Documented by: ZA Benzocaine (Throat Lozenge, Medicated Lozenge) 1 lozenge MUCOUS MEM Q2H PRN PRN Reason: Sore Throat Last Admin: 08/26/21 07:56 Dose: 1 lozenge Documented by: ZA Dextrose/Lactated Ringer's (D5lr) 1,000 mls @ 125 mls/hr IVCONT .Q8H [facility]ANO Last Admin: 08/26/21 10:31 Dose: 125 mls/hr Documented by: ZA Acetaminophen (Ofirmev) 1,000 mg in 100 mls @ 400 mls/hr IV Q6H [facility]AN[facility] Last Admin: 08/26/21 15:20 Dose: 400 mls/hr Documented by: IRMA Lidocaine (Lidocaine 4 % Patch Adh..Patch) 1 patch TRANSDERMA DAILY [facility]; Protocol Last Admin: 08/26/21 10:25 Dose: 1 patch Documented by: ZA Morphine Sulfate (Morphine Sulfate 2 Mg/Ml Cartridge) 4 mg IVPUSH Q2H PRN; Protocol PRN Reason: Pain, Moderate (Pain Scale 4-6 Last Admin: 08/26/21 00:49 Dose: 4 mg Documented by: DONY Multi-Ingred Medicated Throat [place] (Throat [place], Medicated 20 Ml Bottle) 1 spray MUCOUS MEM Q2H PRN PRN Reason: Sore Throat Omeprazole (Omeprazole 20 Mg/10 Ml Susp.Recon) 20 mg PO DAILY@0630 [facility] Last Admin: 08/23/21 04:36 Dose: 20 mg Documented by: DEANNA Ondansetron HCl (Ondansetron Hcl 4 Mg/2 Ml Vial) 4 mg IVPUSH Q8H PRN PRN Reason: Nausea and Vomiting Sodium Chloride (0.9 % Sodium Chloride Flush 3 Ml Syringe) 3 ml IVFLUSH QSHIFT [facility] Last Admin: 08/26/21 15:20 Dose: Not Given Documented by: IRMA Non-Admin Reason: IV Running Labs CBC & Chem 7: 08/26/21 03:54 08/26/21 03:54 Labs: Laboratory Results - last 24 hr 08/26/21 08/26/21 08/26/21 03:54 03:54 13:34 MCV 93.2 MCH 30.5 MCHC 32.7 RDW 12.0 Plt Count 358 MPV 10.4 Immature Gran % (Auto) 0.4 Neut % (Auto) 67.6 Lymph % (Auto) 15.1 L [place] % (Auto) 9.9 Eos % (Auto) 6.4 H Baso % (Auto) 0.6 Lymph # (Auto) 1.2 [place] # (Auto) 0.8 Eos # (Auto) 0.5 H Baso # (Auto) 0.1 Abs Immat Gran (auto) 0.03 Absolute Neuts (auto) 5.4 Absolute Nucleated RBC 0.000 Nucleated RBC % (auto) 0.0 Anion Gap 9 L Estim Creat Clear Calc 84.7 Estimated GFR > 60 POC Glucose 79 Random Glucose 99 Calcium 8.3 L Procedures Date of Service Date of Service: 08/26/21 Progress Note: A&P Assessment and plan (1) Gastric out let obstruction: Status: Acute (2) Gastric adenocarcinoma: Status: Acute Assessment and Plan: 81-year-old male patient status post exploratory laparotomy, gastrojejunostomy. Patient found to have an unresectable large bulky tumor invading pancreas and colon. The patient is now more comfortable with decreased abdominal pain but is complaining mainly of the nasogastric tube. A clamping trial was performed although greater than 175 mL was left within the stomach. Tube was reattached to suction and will be rechecked in a.m.. I will schedule him for a gastrografin swallow study tomorrow to evaluate for leak and gastric emptying. May need PPN if continued NPO required. Fall Risk Details Current Medications: Current Medications Amlodipine Besylate (Amlodipine Besylate 10 Mg Tablet) 10 mg NG-TUBE DAILY [facility]; Protocol Last Admin: 08/26/21 09:13 Dose: 10 mg Documented by: Benzocaine (Throat Lozenge, Medicated Lozenge) 1 lozenge MUCOUS MEM Q2H PRN PRN Reason: Sore Throat Last Admin: 08/26/21 07:56 Dose: 1 lozenge Documented by: Dextrose/Lactated Ringer's (D5lr) 1,000 mls @ 125 mls/hr IVCONT .Q8H [facility] Last Admin: 08/26/21 10:31 Dose: 125 mls/hr Documented by: Acetaminophen (Ofirmev) 1,000 mg in 100 mls @ 400 mls/hr IV Q6H [facility] Last Admin: 08/26/21 15:20 Dose: 400 mls/hr Documented by: Lidocaine (Lidocaine 4 % Patch Adh..Patch) 1 patch TRANSDERMA DAILY [facility]; Protocol Last Admin: 08/26/21 10:25 Dose: 1 patch Documented by: Morphine Sulfate (Morphine Sulfate 2 Mg/Ml Cartridge) 4 mg IVPUSH Q2H PRN; P rotocol PRN Reason: Pain, Moderate (Pain Scale 4-6 Last Admin: 08/26/21 00:49 Dose: 4 mg Documented by: Multi-Ingred Medicated Throat [place] (Throat [place], Medicated 20 Ml Bottle) 1 sp ray MUCOUS MEM Q2H PRN PRN Reason: Sore Throat Omeprazole (Omeprazole 20 Mg/10 Ml Susp.Recon) 20 mg PO DAILY@0630 [facility] Last Admin: 08/23/21 04:36 Dose: 20 mg Documented by: Ondansetron HCl (Ondansetron Hcl 4 Mg/2 Ml Vial) 4 mg IVPUSH Q8H PRN PRN Reason: Nausea and Vomiting Sodium Chloride (0.9 % Sodium Chloride Flush 3 Ml Syringe) 3 ml IVFLUSH QSHIFT [facility] Last Admin: 08/26/21 15:20 Dose: Not Given Documented by: Time Spent With Patient Time: Total time spent is greater than 50% in coordination of care (as documented) at patient's floor/unit and/or counseling patient: Time with patient: 15 - 24 minutes Quality Stroke Does the patient have a stroke diagnosis?: No VTE Prior VTE?: No VTE Risk Level:: Medical - moderate - high VTE Device Contraindication: N/A - Device Ordered VTE Drug Contraindication: Treatment Not Indicated
--- NOTE | 2021-08-26 15:56 | PC.NURSE ---
pt NGT clamped per MD order. reassessed after 4 hrs. pt denies nausea/ vomiting/ increased pain. gastric residual >150mL, per MD restarted NGT low/ int suction. Will cont to monitor and assess
[2021-08-27] VITALS (8 sets, daily range): BP systolic 120–160; BP diastolic 60–88; PULSE 62–98; RESP 17–18; TEMP 36.3–37.1; O2SAT 95–97
[2021-08-27] MEDS: Dextrose 5 % and Lactated Ring 1,000 ML 125 ML IVCONT ×3 (03:03→20:00)
[2021-08-27 05:40] LABS: MANUAL DIFF FLAG NO
[2021-08-27 05:44] LABS: Basophils Absolute Auto 0.1 X10*3/uL (0.0-0.2); Basophils Percent Auto 0.5 % (0-2); Eosinophils Absolute Auto 0.6 X10*3/uL (0.0-0.4); Eosinophils Percent Auto 5.2 % (0-4); Hematocrit 34.4 % (42.0-52.0); Hemoglobin 11.5 g/dl (14.0-18.0); Imm Gran Abs Auto 0.06 X10*3/uL (0.00-0.03); Imm Gran Pct Auto 0.6 % (0.0-0.4); Lymphocytes Absolute Auto 1.1 X10*3/uL (1.2-4.9); Mean Corpuscular HGB Conc 33.4 g/dl (31.0-36.0); Mean Corpuscular Hemoglobin 30.7 pg (27.0-33.0); Mean Corpuscular Volume 91.7 fL (80.0-98.0); Mean Platelet Volume 10.4 fL (9.4-12.4); Monocytes Absolute Auto 0.8 X10*3/uL (0.1-1.2); Neutrophils Absolute Auto 8.2 x10*3/uL (2.0-8.3); Neutrophils Percent Auto 76.7 % (45-73); Platelet Count 419 X10*3/uL (160-400); Red Blood Count 3.75 X10*6/uL (4.60-5.80); Red Cell Distribution Width 11.9 % (11.0-16.0); White Blood Count 10.7 X10*3/uL (4.8-10.8)
[2021-08-27 05:57] LABS: Anion Gap 12 (12-20); Blood Urea Nitrogen 5 mg/dL (9-16); Calcium 8.8 mg/dL (8.4-10.2); Carbon Dioxide 28 mmol/L (22-29); Chloride 106 mmol/L (96-108); Estimated Glomerular Filt Rate > 60; Glucose Random 115 mg/dL (60-115); Potassium 3.6 mmol/L (3.3-5.1); Sodium 142 mmol/L (135-145)
--- NOTE | 2021-08-27 07:52 | PM.PNGS ---
Subjective Subjective Date of Service: 08/27/21 Interval history: No new complaints; nasal soreness from NGT Physical Exam Vital Signs: Vital Signs: Last Vital Signs Temp 97.7 F 08/27/21 07:18 Pulse 74 08/27/21 07:18 Resp 18 08/27/21 07:18 BP 153/86 H 08/27/21 07:18 Pulse Ox 96 08/27/21 07:18 BMI result Body Mass Index 20.3 Const: General: cooperative, comfortable and no acute distress Nutritional Appearance: thin Orientation/consciousness: patient oriented x3 Limitations: no limitations GI: Other: soft, incision clean and intact. Neuro: General: patient oriented x3 Extrem: General: Yes normal to inspection and Yes no clubbing, cyanosis or edema Objective Data Active Medications Amlodipine Besylate (Amlodipine Besylate 10 Mg Tablet) 10 mg NG-TUBE DAILY [facility]; Protocol Last Admin: 08/26/21 09:13 Dose: 10 mg Documented by: ZA Benzocaine (Throat Lozenge, Medicated Lozenge) 1 lozenge MUCOUS MEM Q2H PRN PRN Reason: Sore Throat Last Admin: 08/26/21 20:53 Dose: 1 lozenge Documented by: DONY Dextrose/Lactated Ringer's (D5lr) 1,000 mls @ 125 mls/hr IVCONT .Q8H [facility] Last Infusion: 08/27/21 03:20 Dose: 125 mls/hr Documented by: TOMY Acetaminophen (Ofirmev) 1,000 mg in 100 mls @ 400 mls/hr IV Q6H [facility] Last Infusion: 08/27/21 03:19 Dose: 0 mls/hr Documented by: TOMY Lidocaine (Lidocaine 4 % Patch Adh..Patch) 1 patch TRANSDERMA DAILY [facility]; Protocol Last Admin: 08/26/21 10:25 Dose: 1 patch Documented by: ZA Morphine Sulfate (Morphine Sulfate 2 Mg/Ml Cartridge) 4 mg IVPUSH Q2H PRN; Protocol PRN Reason: Pain, Moderate (Pain Scale 4-6 Last Admin: 08/26/21 00:49 Dose: 4 mg Documented by: DONY Multi-Ingred Medicated Throat [place] (Throat [place], Medicated 20 Ml Bottle) 1 spray MUCOUS MEM Q2H PRN PRN Reason: Sore Throat Omeprazole (Omeprazole 20 Mg/10 Ml Susp.Recon) 20 mg PO DAILY@0630 [facility] Last Admin: 08/23/21 04:36 Dose: 20 mg Documented by: DEANNA Ondansetron HCl (Ondansetron Hcl 4 Mg/2 Ml Vial) 4 mg IVPUSH Q8H PRN PRN Reason: Nausea and Vomiting Sodium Chloride (0.9 % Sodium Chloride Flush 3 Ml Syringe) 3 ml IVFLUSH QSHIFT [facility] Last Admin: 08/26/21 23:58 Dose: Not Given Documented by: TOMY Non-Admin Reason: IV Running Labs CBC & Chem 7: 08/27/21 05:20 08/27/21 05:20 Labs: Laboratory Results - last 24 hr 08/26/21 08/27/21 08/27/21 13:34 05:20 05:20 MCV 91.7 MCH 30.7 MCHC 33.4 RDW 11.9 Plt Count 419 H MPV 10.4 Immature Gran % (Auto) 0.6 H Neut % (Auto) 76.7 H Lymph % (Auto) 10.0 L [place] % (Auto) 7.0 Eos % (Auto) 5.2 H Baso % (Auto) 0.5 Lymph # (Auto) 1.1 L [place] # (Auto) 0.8 Eos # (Auto) 0.6 H Baso # (Auto) 0.1 Abs Immat Gran (auto) 0.06 H Absolute Neuts (auto) 8.2 Absolute Nucleated RBC 0.000 Nucleated RBC % (auto) 0.0 Anion Gap 12 Estim Creat Clear Calc 86.0 Estimated GFR > 60 POC Glucose 79 Random Glucose 115 Calcium 8.8 D Procedures Date of Service Date of Service: 08/27/21 Progress Note: A&P Assessment and plan (1) Gastric adenocarcinoma: Status: Acute (2) Gastric out let obstruction: Status: Acute Assessment and Plan: s/p e-lap and gastrojejunostomy for GOO. Check UGI study today. Fall Risk Details Current Medications: Current Medications Amlodipine Besylate (Amlodipine Besylate 10 Mg Tablet) 10 mg NG-TUBE DAILY [facility]; Protocol Last Admin: 08/26/21 09:13 Dose: 10 mg Documented by: Benzocaine (Throat Lozenge, Medicated Lozenge) 1 lozenge MUCOUS MEM Q2H PRN PRN Reason: Sore Throat Last Admin: 08/26/21 20:53 Dose: 1 lozenge Documented by: Dextrose/Lactated Ringer's (D5lr) 1,000 mls @ 125 mls/hr IVCONT .Q8H [facility] Last Infusion: 08/27/21 03:20 Dose: 125 mls/hr Documented by: Acetaminophen (Ofirmev) 1,000 mg in 100 mls @ 400 mls/hr IV Q6H [facility] Last Infusion: 08/27/21 03:19 Dose: Infused Documented by: Lidocaine (Lidocaine 4 % Patch Adh..Patch) 1 patch TRANSDERMA DAILY [facility]; Protocol Last Admin: 08/26/21 10:25 Dose: 1 patch Documented by: Morphine Sulfate (Morphine Sulfate 2 Mg/Ml Cartridge) 4 mg IVPUSH Q2H PRN; Protocol PRN Reason: Pain, Moderate (Pain Scale 4-6 Last Admin: 08/26/21 00:49 Dose: 4 mg Documented by: Multi-Ingred Medicated Throat [place] (Throat [place], Medicated 20 Ml Bottle) 1 spray MUCOUS MEM Q2H PRN PRN Reason: Sore Throat Omeprazole (Omeprazole 20 Mg/10 Ml Susp.Recon) 20 mg PO DAILY@0630 [facility] Last Admin: 08/23/21 04:36 Dose: 20 mg Documented by: Ondansetron HCl (Ondansetron Hcl 4 Mg/2 Ml Vial) 4 mg IVPUSH Q8H PRN PRN Reason: Nausea and Vomiting Sodium Chloride (0.9 % Sodium Chloride Flush 3 Ml Syringe) 3 ml IVFLUSH QSHIFT [facility] Last Admin: 08/26/21 23:58 Dose: Not Given Documented by: Time Spent With Patient Time: Total time spent is greater than 50% in coordination of care (as documented) at patient's floor/unit and/or counseling patient: Time with patient: 15 - 24 minutes Quality Stroke Does the patient have a stroke diagnosis?: No VTE Prior VTE?: No VTE Risk Level:: Medical - moderate - high VTE Device Contraindication: N/A - Device Ordered VTE Drug Contraindication: Treatment Not Indicated
[2021-08-27] MEDS: amLODIPine Besylate 10 MG TABLET NG-TUBE (10:13)
[2021-08-27] MEDS: Lidocaine 4 % Patch ADH..PATCH 1 PATCH TRANSDERMA (10:17)
--- NOTE | 2021-08-27 10:41 | MHC.CLN ---
F/U DAY 5 NPO WITH NGT S/P GASTROJEJUNOSTOMY. DIET HAS NOT PROVIDED ADEQUATE CALORIES SINCE 08/15 (X 11 DAYS) WITH HIGHEST DIET=FULL LIQUIDS PRIOR TO SURGERY. NUTRITION WITH DX NON SEVERE MALNUTRITION IN THE CONTEXT OF CHRONIC ILLNESS. RECOMMEND TPN D15AA5% AT 45ML/HR TO PROVIDE 767KCALS, 54G PROTEIN PT WILL NEED CENTRAL LINE ACCESS IF PPN NEEDED; RECOMMEND D10AA4.25 AT 60ML/HR TO PROVIDE 734KCALS, 61G PROTEIN REPLETE LYTES NEEDED; CHECK TRIGS FOLLOWING
[2021-08-27] MEDS: Throat Lozenge, Medicated LOZENGE 1 LOZENGE MUCOUS MEM (12:25)
--- NOTE | 2021-08-27 15:30 | PC.NURSE ---
NG tube D/C started on clear liquids
[2021-08-28 03:52] VITALS: BP 133/74; PULSE 64; RESP 18; TEMP 36.6; O2SAT 95
[2021-08-28] MEDS: Dextrose 5 % and Lactated Ring 1,000 ML 125 ML IVCONT (04:02)
[2021-08-28 07:37] VITALS: BP 136/72; PULSE 60; RESP 18; TEMP 36.7; O2SAT 97
--- NOTE | 2021-08-28 09:12 | MHC.CLN ---
F/U NG TUBE DISCONTINUED 08/27 AND CLEAR LIQUIDS STARTED 08/27. ADDING ENSURE CLEAR TID TO PROVIDE 720 KCALS, 24 G PROTEIN. FOLLOWING FOR DIET ADVANCEMENT/DIET TOLERANCE.
[2021-08-28] MEDS: amLODIPine Besylate 10 MG TABLET NG-TUBE (09:14)
[2021-08-28] MEDS: Lidocaine 4 % Patch ADH..PATCH 1 PATCH TRANSDERMA (09:14)
[2021-08-28 11:42] VITALS: BP 122/67; PULSE 62; RESP 18; TEMP 36.9; O2SAT 97
--- NOTE | 2021-08-28 12:53 | P.PNGS_ITS ---
Subjective Subjective Date of Service: 08/28/21 Interval history: Had UGI yesterday. NGT removed. On clears. Denies nausea, vomiting. Passing flatus. Physical Exam Vital Signs: Vital Signs: Last Vital Signs Temp 98.5 F 08/28/21 11:42 Pulse 62 08/28/21 11:42 Resp 18 08/28/21 11:42 BP 122/67 08/28/21 11:42 Pulse Ox 97 08/28/21 11:42 BMI result Body Mass Index 20.3 Const: General: no acute distress and alert Orientation/consciousness: patient oriented x3 GI: Inspection: No distended and Yes incision (clean) Palpation (GI): Soft to palpation Skin: General skin exam: no rashes or lesions noted Neuro: General: patient oriented x3 Objective Data Active Medications Amlodipine Besylate (Amlodipine Besylate 10 Mg Tablet) 10 mg NG-TUBE DAILY [facility]; Protocol Last Admin: 08/28/21 09:14 Dose: 10 mg Documented by: LUANN Benzocaine (Throat Lozenge, Medicated Lozenge) 1 lozenge MUCOUS MEM Q2H PRN PRN Reason: Sore Throat Last Admin: 08/27/21 12:25 Dose: 1 lozenge Documented by: LUANN Lidocaine (Lidocaine 4 % Patch Adh..Patch) 1 patch TRANSDERMA DAILY [facility]; Pr otocol Last Admin: 08/28/21 09:14 Dose: 1 patch Documented by: LUANN Morphine Sulfate (Morphine Sulfate 2 Mg/Ml Cartridge) 4 mg IVPUSH Q2H PRN; Protocol PRN Reason: Pain, Moderate (Pain Scale 4-6 Last Admin: 08/26/21 00:49 Dose: 4 mg Documented by: DONY Multi-Ingred Medicated Throat [place] (Throat [place], Medicated 20 Ml Bottle) 1 spray MUCOUS MEM Q2H PRN PRN Reason: Sore Throat Omeprazole (Omeprazole 20 Mg/10 Ml Susp.Recon) 20 mg PO DAILY@0630 [facility] Last Admin: 08/23/21 04:36 Dose: 20 mg Documented by: DEANNA Ondansetron HCl (Ondansetron Hcl 4 Mg/2 Ml Vial) 4 mg IVPUSH Q8H PRN PRN Reason: Nausea and Vomiting Sodium Chloride (0.9 % Sodium Chloride Flush 3 Ml Syringe) 3 ml IVFLUSH QSHIFT [facility] Last Admin: 08/28/21 09:14 Dose: Not Given Documented by: LUANN Non-Admin Reason: IV Running Labs CBC & Chem 7: 08/27/21 05:20 08/27/21 05:20 Procedures Date of Service Date of Service: 08/28/21 Progress Note: A&P Assessment and plan (1) Gastric adenocarcinoma: Status: Acute (2) Gastric out let obstruction: Status: Acute (3) S/P bypass gastrojejunostomy: Status: Acute Assessment and Plan: S/p ex-lap and gastrojejunostomy for GOO.? UGI yesterday showed GJ patent and NGT therefore removed. On clear liquids this morning. VSS. Abd exam benign. Advance diet further as tolerated. Pain is controlled. Begin dispo planning- likely home in next 1-2 days if continues to do well. Will need outpt PET scan and follow up with Dr. Conroy. Fall Risk Details Current Medications: Current Medications Amlodipine Besylate (Amlodipine Besylate 10 Mg Tablet) 10 mg NG-TUBE DAILY [facility]; Protocol Last Admin: 08/28/21 09:14 Dose: 10 mg Documented by: Benzocaine (Throat Lozenge, Medicated Lozenge) 1 lozenge MUCOUS MEM Q2H PRN PRN Reason: Sore Throat Last Admin: 08/27/21 12:25 Dose: 1 lozenge Documented by: Lidocaine (Lidocaine 4 % Patch Adh..Patch) 1 patch TRANSDERMA DAILY [facility]; Protocol Last Admin: 08/28/21 09:14 Dose: 1 patch Documented by: Morphine Sulfate (Morphine Sulfate 2 Mg/Ml Cartridge) 4 mg IVPUSH Q2H PRN; Protocol PRN Reason: Pain, Moderate (Pain Scale 4-6 Last Admin: 08/26/21 00:49 Dose: 4 mg Documented by: Multi-Ingred Medicated Throat [place] (Throat [place], Medicated 20 Ml Bottle) 1 spray MUCOUS MEM Q2H PRN PRN Reason: Sore Throat Omeprazole (Omeprazole 20 Mg/10 Ml Susp.Recon) 20 mg PO DAILY@0630 [facility] Last Admin: 08/23/21 04:36 Dose: 20 mg Documented by: Ondansetron HCl (Ondansetron Hcl 4 Mg/2 Ml Vial) 4 mg IVPUSH Q8H PRN PRN Reason: Nausea and Vomiting Sodium Chloride (0.9 % Sodium Chloride Flush 3 Ml Syringe) 3 ml IVFLUSH QSHIFT [facility] Last Admin: 08/28/21 09:14 Dose: Not Given Documented by: Time Spent With Patient Time: Total time spent is greater than 50% in coordination of care (as documente d) at patient's floor/unit and/or counseling patient: Time with patient: less than 15 minutes Quality Stroke Does the patient have a stroke diagnosis?: No VTE Prior VTE?: No VTE Risk Level:: Medical - moderate - high VTE Device Contraindication: N/A - Device Ordered VTE Drug Contraindication: Treatment Not Indicated
--- NOTE | 2021-08-28 13:57 | MHC.CM.PN ---
NG TUBE REMOVED AND PATIENT IS ON A CLEAR LIQUID DIET. PLAN IS TO ADVANCE AND PLAN FOR DISCHARGE. CM FOLLOWING
[2021-08-28 14:00] VITALS: O2SAT 96
[2021-08-28 15:29] VITALS: BP 135/66; PULSE 58; RESP 17; TEMP 36.4; O2SAT 100
[2021-08-28] MEDS: 0.9 % Sodium Chloride Flush 3 ML SYRINGE IVFLUSH ×2 (16:42→20:59)
[2021-08-28 19:19] VITALS: BP 133/77; PULSE 68; RESP 16; TEMP 36.7; O2SAT 97
[2021-08-29] VITALS (8 sets, daily range): BP systolic 115–151; BP diastolic 60–74; PULSE 72–89; RESP 15–18; TEMP 36.3–37.3; O2SAT 96–98
--- NOTE | 2021-08-29 07:36 | P.PNGS_ITS ---
Subjective Subjective Date of Service: 08/29/21 Interval history: Patient feels much improved, very hungry. Reports moving bowels. Denies abdominal pain. Physical Exam Vital Signs: Vital Signs: Last Vital Signs Temp 97.4 F 08/29/21 04:00 Pulse 74 08/29/21 04:00 Resp 16 08/29/21 04:00 BP 130/73 08/29/21 04:00 Pulse Ox 97 08/29/21 04:00 BMI result Body Mass Index 20.3 Const: General: cooperative and no acute distress Nutritional Appearance: t hin Orientation/consciousness: patient oriented x3 Limitations: no limitations Resp: Effort & Inspection: normal respiratory effort GI: Inspection: Yes incision (C,D,I) Palpation (GI): Soft to palpation, nontender, no guarding and not rigid Skin: General skin exam: no rashes or lesions noted Neuro: General: patient oriented x3 Extrem: General: Yes no clubbing, cyanosis or edema Objective Data Active Medications Amlodipine Besylate (Amlodipine Besylate 10 Mg Tablet) 10 mg NG-TUBE DAILY [facility]; Protocol Last Admin: 08/28/21 09:14 Dose: 10 mg Documented by: LUANN Benzocaine (Throat Lozenge, Medicated Lozenge) 1 lozenge MUCOUS MEM Q2H PRN PRN Reason: Sore Throat Last Admin: 08/27/21 12:25 Dose: 1 lozenge Documented by: LUANN Lidocaine (Lidocaine 4 % Patch Adh..Patch) 1 patch TRANSDERMA DAILY [facility]; Protocol Last Admin: 08/28/21 09:14 Dose: 1 patch Documented by: LUANN Morphine Sulfate (Morphine Sulfate 2 Mg/Ml Cartridge) 4 mg IVPUSH Q2H PRN; Protocol PRN Reason: Pain, Moderate (Pain Scale 4-6 Last Admin: 08/26/21 00:49 Dose: 4 mg Documented by: DONY Multi-Ingred Medicated Throat [place] (Throat [place], Medicated 20 Ml Bottle) 1 spray MUCOUS MEM Q2H PRN PRN Reason: Sore Throat Omeprazole (Omeprazole 20 Mg/10 Ml Susp.Recon) 20 mg PO DAILY@0630 [facility] Last Admin: 08/23/21 04:36 Dose: 20 mg Documented by: DEANNA Ondansetron HCl (Ondansetron Hcl 4 Mg/2 Ml Vial) 4 mg IVPUSH Q8H PRN PRN Reason: Nausea and Vomiting Sodium Chloride (0.9 % Sodium Chloride Flush 3 Ml Syringe) 3 ml IVFLUSH QSHIFT [facility] Last Admin: 08/28/21 20:59 Dose: 3 ml Documented by: ADALGISA Labs CBC & Chem 7: 08/27/21 05:20 08/27/21 05:20 Procedures Date of Service Date of Service: 08/29/21 Progress Note: A&P Assessment and plan (1) S/P bypass gastrojejunostomy: Status: Acute (2) Gastric adenocarcinoma: Status: Acute Assessment and Plan: Patient presenting with gastric outlet obstruction found to have nearly obstructing gastric adenocarcinoma. He is status post gastrojejunostomy. Upper GI study revealed no leak and good flow into the small bowel. Patient tolerating clear liquids yesterday without nausea or vomiting. Will advance from to a regular soft diet today. If well tolerated discharge to home tomorrow. Fall Risk Details Current Medications: Current Medications Amlodipine Besylate (Amlodipine Besylate 10 Mg Tablet) 10 mg NG-TUBE DAILY [facility]; Protocol Last Admin: 08/28/21 09:14 Dose: 10 mg Documented by: Benzocaine (Throat Lozenge, Medicated Lozenge) 1 lozenge MUCOUS MEM Q2H PRN PRN Reason: Sore Throat Last Admin: 08/27/21 12:25 Dose: 1 lozenge Documented by: Lidocaine (Lidocaine 4 % Patch Adh..Patch) 1 patch TRANSDERMA DAILY [facility]; Protocol Last Admin: 08/28/21 09:14 Dose: 1 patch Documented by: Morphine Sulfate (Morphine Sulfate 2 Mg/Ml Cartridge) 4 mg IVPUSH Q2H PRN; Protocol PRN Reason: Pain, Moderate (Pain Scale 4-6 Last Admin: 08/26/21 00:49 Dose: 4 mg Documented by: Multi-Ingred Medicated Throat [place] (Throat [place], Medicated 20 Ml Bottle) 1 spray MUCOUS MEM Q2H PRN PRN Reason: Sore Throat Omeprazole (Omeprazole 20 Mg/10 Ml Susp.Recon) 20 mg PO DAILY@0630 [facility] Last Admin: 08/23/21 04:36 Dose: 20 mg Documented by: Ondansetron HCl (Ondansetron Hcl 4 Mg/2 Ml Vial) 4 mg IVPUSH Q8H PRN PRN Reason: Nausea and Vomiting Sodium Chloride (0.9 % Sodium Chloride Flush 3 Ml Syringe) 3 ml IVFLUSH QSHIFT [facility] Last Admin: 08/28/21 20:59 Dose: 3 ml Documented by: Time Spent With Patient Time: Total time spent is greater than 50% in coordination of care (as documented) at patient's floor/unit and/or counseling patient: Time with patient: 15 - 24 minutes Quality Stroke Does the patient have a stroke diagnosis?: No VTE Prior VTE?: No VTE Risk Level:: Medical - moderate - high VTE Device Contraindication: N/A - Device Ordered VTE Drug Contraindication: Treatment Not Indicated
[2021-08-29] MEDS: 0.9 % Sodium Chloride Flush 3 ML SYRINGE IVFLUSH ×3 (09:27→23:49)
[2021-08-29] MEDS: amLODIPine Besylate 10 MG TABLET NG-TUBE (09:27)
[2021-08-29] MEDS: Lidocaine 4 % Patch ADH..PATCH 1 PATCH TRANSDERMA (09:27)
--- NOTE | 2021-08-29 11:48 | MHC.CLN ---
F/U PO INTAKE 50/100% DIET RX: ADVANCED TO LOW RESIDUE/SOFT-APPROPRIATE PT REPORTS VERY HUNGRY RECOMMEND ADDING ENSURE TID TO INCREASE KCALS MONITOR PO INTAKE
[2021-08-30 03:53] VITALS: BP 138/80; PULSE 75; RESP 16; TEMP 36.7; O2SAT 97
--- NOTE | 2021-08-30 07:42 | PM.PNGS ---
Subjective Subjective Date of Service: 08/30/21 Interval history: Patient reports some upper abdominal discomfort after eating yesterday. Was able to eat some of the solid food. He reports 2 bowel movements yesterday. Physical Exam Vital Signs: Vital Signs: Last Vital Signs Temp 98.0 F 08/30/21 03:53 Pulse 75 08/30/21 03:53 Resp 16 08/30/21 03:53 BP 138/80 08/30/21 03:53 Pulse Ox 97 08/30/21 03:53 BMI result Body Mass Index 20.3 Const: General: comfortable and no acute distress Nutritional Appearance: thin Orientation/consciousness: patient oriented x3 Resp: Effort & Inspection: normal respiratory effort GI: Other: Soft, nontender, non tympanitic, incision clean, dry, and intact. Skin: General skin exam: no rashes or lesions noted Neuro: General: patient oriented x3 Extrem: General: No edema Objective Data Active Medications Amlodipine Besylate (Amlodipine Besylate 10 Mg Tablet) 10 mg NG-TUBE DAILY [facility]; Protocol Last Admin: 08/29/21 09:27 Dose: 10 mg Documented by: ANTONINA Benzocaine (Throat Lozenge, Medicated Lozenge) 1 lozenge MUCOUS MEM Q2H PRN PRN Reason: Sore Throat Last Admin: 08/27/21 12:25 Dose: 1 lozenge Documented by: LUANN Lidocaine (Lidocaine 4 % Patch Adh..Patch) 1 patch TRANSDERMA DAILY [facility]; Protocol Last Admin: 08/29/21 09:27 Dose: 1 patch Documented by: ANTONINA Morphine Sulfate (Morphine Sulfate 2 Mg/Ml Cartridge) 4 mg IVPUSH Q2H PRN; Protocol PRN Reason: Pain, Moderate (Pain Scale 4-6 Last Admin: 08/26/21 00:49 Dose: 4 mg Documented by: DONY Multi-Ingred Medicated Throat [place] (Throat [place], Medicated 20 Ml Bottle) 1 spray MUCOUS MEM Q2H PRN PRN Reason: Sore Throat Omeprazole (Omeprazole 20 Mg/10 Ml Susp.Recon) 20 mg PO DAILY@0630 [facility] Last Admin: 08/23/21 04:36 Dose: 20 mg Documented by: DEANNA Ondansetron HCl (Ondansetron Hcl 4 Mg/2 Ml Vial) 4 mg IVPUSH Q8H PRN PRN Reason: Nausea and Vomiting Sodium Chloride (0.9 % Sodium Chloride Flush 3 Ml Syringe) 3 ml IVFLUSH QSHIFT [facility] Last Admin: 08/29/21 23:49 Dose: 3 ml Documented by: TOMY Labs CBC & Chem 7: 08/27/21 05:20 08/27/21 05:20 Procedures Date of Service Date of Service: 08/30/21 Progress Note: A&P Assessment and plan (1) Gastric adenocarcinoma: Status: Acute Assessment and Plan: 81-year-old male patient with 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 He is tolerating a regular diet but does have some discomfort after eating. I will add Ensure pudding which may be easier for him to tolerate. He is on feel comfortable going home today but would like to try the supplements. Possible discharge in a.m. tomorrow. Fall Risk Details Current Medications: Current Medications Amlodipine Besylate (Amlodipine Besylate 10 Mg Tablet) 10 mg NG-TUBE DAILY [facility]; Protocol Last Admin: 08/29/21 09:27 Dose: 10 mg Documented by: Benzocaine (Throat Lozenge, Medicated Lozenge) 1 lozenge MUCOUS MEM Q2H PRN PRN Reason: Sore Throat Last Admin: 08/27/21 12:25 Dose: 1 lozenge Documented by: Lidocaine (Lidocaine 4 % Patch Adh..Patch) 1 patch TRANSDERMA DAILY [facility]; Protocol Last Admin: 08/29/21 09:27 Dose: 1 patch Documented by: Morphine Sulfate (Morphine Sulfate 2 Mg/Ml Cartridge) 4 mg IVPUSH Q2H PRN; Protocol PRN Reason: Pain, Moderate (Pain Scale 4-6 Last Admin: 08/26/21 00:49 Dose: 4 mg Documented by: Multi-Ingred Medicated Throat [place] (Throat [place], Medicated 20 Ml Bottle) 1 spray MUCOUS MEM Q2H PRN PRN Reason: Sore Throat Omeprazole (Omeprazole 20 Mg/10 Ml Susp.Recon) 20 mg PO DAILY@0630 [facility] Last Admin: 08/23/21 04:36 Dose: 20 mg Documented by: Ondansetron HCl (Ondansetron Hcl 4 Mg/2 Ml Vial) 4 mg IVPUSH Q8H PRN PRN Reason: Nausea and Vomiting Sodium Chloride (0.9 % Sodium Chloride Flush 3 Ml Syringe) 3 ml IVFLUSH QSHIFT [facility] Last Admin: 08/29/21 23:49 Dose: 3 ml Documented by: Time Spent With Patient Time: Total time spent is greater than 50% in coordination of care (as documented) at patient's floor/unit and/or counseling patient: Time with patient: 15 - 24 minutes Quality Stroke Does the patient have a stroke diagnosis?: No VTE Prior VTE?: No VTE Risk Level:: Medical - moderate - high VTE Device Contraindication: N/A - Device Ordered VTE Drug Contraindication: Treatment Not Indicated
[2021-08-30 08:00] VITALS: BP 127/75; PULSE 64; RESP 18; TEMP 36.6; O2SAT 99
[2021-08-30] MEDS: Lidocaine 4 % Patch ADH..PATCH 1 PATCH TRANSDERMA (08:57)
[2021-08-30] MEDS: amLODIPine Besylate 10 MG TABLET NG-TUBE (08:57)
[2021-08-30] MEDS: 0.9 % Sodium Chloride Flush 3 ML SYRINGE IVFLUSH ×3 (08:58→22:02)
[2021-08-30 11:15] VITALS: BP 147/73; PULSE 77; RESP 18; TEMP 37; O2SAT 94
--- NOTE | 2021-08-30 12:07 | MHC.CLN ---
F/U TOLERATING REGULAR, LOW RESIDUE/SOFT DIET WITH SOME DISCOMFORT PER MD. MD ADDED ENSURE PUDDING TID. SUPPLEMENTS: ENSURE TID AND ENSURE PUDDING TID PROVIDE 1560 KCAL, 51 G PROTEIN. MONITOR PO INTAKE AND DIET TOLERANCE.
[2021-08-30 15:53] VITALS: BP 146/65; PULSE 119; RESP 18; TEMP 37.6; O2SAT 98
[2021-08-30 19:19] VITALS: BP 135/64; PULSE 88; RESP 16; TEMP 37.3; O2SAT 96
[2021-08-31] VITALS: BP 157/72; PULSE 104; RESP 16; TEMP 37.4; O2SAT 98
--- NOTE | 2021-08-31 | ECG_ITS ---
Test Reason : IRREGULAR BEATS Blood Pressure : / mmHG Vent. Rate : 095 BPM Atrial Rate : 095 BPM P-R Int : 116 ms QRS Dur : 090 ms QT Int : 360 ms P-R-T Axes : 024 048 055 degrees QTc Int : 452 ms Sinus rhythm with Premature atrial complexes Otherwise normal ECG No previous ECGs available Referred By: Yue Guzman Electronically Signed By:Seng Harris
[2021-08-31 06:53] LABS: Basophils Percent Auto 0.2 % (0-2); Hemoglobin 10.3 g/dl (14.0-18.0); Imm Gran Abs Auto 0.11 X10*3/uL (0.00-0.03); Imm Gran Pct Auto 0.8 % (0.0-0.4); Lymphocytes Absolute Auto 0.5 X10*3/uL (1.2-4.9); MANUAL DIFF FLAG SCAN; Mean Corpuscular HGB Conc 33.2 g/dl (31.0-36.0); Mean Corpuscular Hemoglobin 30.1 pg (27.0-33.0); Mean Corpuscular Volume 90.6 fL (80.0-98.0); Mean Platelet Volume 9.9 fL (9.4-12.4); Monocytes Absolute Auto 0.5 X10*3/uL (0.1-1.2); Monocytes Percent Auto 3.5 % (2-11); Neutrophils Absolute Auto 12.4 x10*3/uL (2.0-8.3); Neutrophils Percent Auto 91.5 % (45-73); Platelet Count 411 X10*3/uL (160-400); Red Blood Count 3.42 X10*6/uL (4.60-5.80); Red Cell Distribution Width 12.5 % (11.0-16.0); SCAN SMEAR FLAG 1; White Blood Count 13.6 X10*3/uL (4.8-10.8)
[2021-08-31 07:14] LABS: Anion Gap 11 (12-20); Blood Urea Nitrogen 16 mg/dL (9-16); Calcium 8.2 mg/dL (8.4-10.2); Carbon Dioxide 23 mmol/L (22-29); Chloride 105 mmol/L (96-108); Creatinine Clr Calc Pharmacy 76.8; Estimated Glomerular Filt Rate > 60; Glucose Random 116 mg/dL (60-115); Potassium 3.8 mmol/L (3.3-5.1); Sodium 135 mmol/L (135-145)
[2021-08-31 07:27] LABS: SLIDE REVIEW VERIFIED
[2021-08-31 08:00] VITALS: BP 117/65; PULSE 84; RESP 18; TEMP 37.2; O2SAT 96
--- NOTE | 2021-08-31 09:37 | MHC.CM.PN ---
PER CONVERSATION WITH SURGEON AND PATIENT, PATIENT IS CURRENTLY FEBRILE AND FEELING NAUSEA. PLAN IS ALSO FOR CHEST XRAY TODAY. CASE MANAGEMENT CONTINUING TO FOLLOW
[2021-08-31] MEDS: ondansetron HCL 4 MG/2 ML VIAL IVPUSH (09:39)
[2021-08-31] MEDS: 0.9 % Sodium Chloride Flush 3 ML SYRINGE IVFLUSH (09:40)
[2021-08-31] MEDS: Dextrose 5 % and Lactated Ring 1,000 ML 80 ML IVCONT (11:03)
[2021-08-31 11:35] VITALS: BP 134/68; PULSE 102; RESP 18; TEMP 37.4; O2SAT 90
[2021-08-31] MEDS: Acetaminophen 325 MG TABLET 650 MG PO (11:35)
--- NOTE | 2021-08-31 12:07 | PM.PNGS ---
Subjective Subjective Date of Service: 08/31/21 Interval history: Not feeling as well today as he did yesterday. Had shaking chill. Appetite still is poor, still some nausea. Having formed stools. some incisional pain, not severe and no other abdominal pain reported. No chest pain, no calf pain. continues to report localized needle like pain right deltoid region when he raises his right arm. Physical Exam Vital Signs: Vital Signs: Last Vital Signs Temp 99.3 F 08/31/21 11:35 Pulse 102 H 08/31/21 11:35 Resp 18 08/31/21 11:35 BP 134/68 08/31/21 11:35 Pulse Ox 90 L 08/31/21 11:35 BMI result Body Mass Index 20.3 Const: Other: Alert, appears somewhat ill, no acute distress Resp: Effort & Inspection: normal respiratory effort Auscultation: clear to auscultation bilaterally ( mildly diminished bilaterally) Cardio: Other: regular rate with frequent ectopic beats GI: Other: soft, nondistended, active bowel sounds, incision clean, dry and well approximated, appropriate incisional tenderness and otherwise nontender Skin: Other: normal color, warm and dry Extrem: General: Yes normal to inspection ( no calf tenderness, no edema) Objective Data Active Medications Acetaminophen (Acetaminophen 325 Mg Tablet) 650 mg PO Q6H PRN PRN Reason: Pain, Mild (Pain Scale 1-3) Last Admin: 08/31/21 11:35 Dose: 650 mg Documented by: IRMA Amlodipine Besylate (Amlodipine Besylate 10 Mg Tablet) 10 mg NG-TUBE DAILY [facility]; Protocol Last Admin: 08/31/21 11:09 Dose: Not Given Documented by: IRMA Non-Admin Reason: Patient Refused Benzocaine (Throat Lozenge, Medicated Lozenge) 1 lozenge MUCOUS MEM Q2H PRN PRN Reason: Sore Throat Last Admin: 08/27/21 12:25 Dose: 1 lozenge Documented by: LUANN Dextrose/Lactated Ringer's (D5lr) 1,000 mls @ 80 mls/hr IVCONT .[id number] [facility] Last Admin: 08/31/21 11:03 Dose: 80 mls/hr Documented by: IRMA Lidocaine (Lidocaine 4 % Patch Adh..Patch) 1 patch TRANSDERMA DAILY [facility]; Protocol Last Admin: 08/31/21 11:08 Dose: Not Given Documented by: IRMA Non-Admin Reason: Patient Refused Morphine Sulfate (Morphine Sulfate 2 Mg/Ml Cartridge) 4 mg IVPUSH Q2H PRN; Protocol PRN Reason: Pain, Moderate (Pain Scale 4-6 Last Admin: 08/26/21 00:49 Dose: 4 mg Documented by: ANMOLRISM Multi-Ingred Medicated Throat [place] (Throat [place], Medicated 20 Ml Bottle) 1 spray MUCOUS MEM Q2H PRN PRN Reason: Sore Throat Omeprazole (Omeprazole 20 Mg/10 Ml Susp.Recon) 20 mg PO DAILY@0630 [facility] Last Admin: 08/23/21 04:36 Dose: 20 mg Documented by: DEANNA Ondansetron HCl (Ondansetron Hcl 4 Mg/2 Ml Vial) 4 mg IVPUSH Q8H PRN PRN Reason: Nausea and Vomiting Last Admin: 08/31/21 09:39 Dose: 4 mg Documented by: IRMA Sodium Chloride (0.9 % Sodium Chloride Flush 3 Ml Syringe) 3 ml IVFLUSH QSHIFT [facility] Last Admin: 08/31/21 09:40 Dose: 3 ml Documented by: IRMA Labs CBC & Chem 7: 08/31/21 06:38 08/31/21 06:38 Labs: Laboratory Results - last 24 hr 08/31/21 08/31/21 06:38 06:38 MCV 90.6 MCH 30.1 MCHC 33.2 RDW 12.5 Plt Count 411 H MPV 9.9 Immature Gran % (Auto) 0.8 H Neut % (Auto) 91.5 H Lymph % (Auto) 4.0 L [place] % (Auto) 3.5 Eos % (Auto) 0.0 Baso % (Auto) 0.2 Lymph # (Auto) 0.5 L [place] # (Auto) 0.5 Eos # (Auto) 0.0 Baso # (Auto) 0.0 Abs Immat Gran (auto) 0.11 H Absolute Neuts (auto) 12.4 H Absolute Nucleated RBC 0.000 Nucleated RBC % (auto) 0.0 Smear Tech's Comments VERIFIED Anion Gap 11 L Estim Creat Clear Calc 76.8 Estimated GFR > 60 Random Glucose 116 H Calcium 8.2 L D Imaging Chest x-ray: Radiologist's impression: Impressions Chest X-Ray 08/31/21 10:58 IMPRESSION: Generalized hyperinflation is nonspecific, but can be seen with COPD. No acute cardiopulmonary process. Procedures Date of Service Date of Service: 08/31/21 Progress Note: A&P Assessment and plan (1) S/P bypass gastrojejunostomy: Status: Acute (2) Gastric adenocarcinoma: Status: Acute (3) Shoulder pain: Status: Acute Assessment and Plan: Now 1 week status post gastrojejunostomy for treatment of gastric outlet obstruction secondary to gastric adenocarcinoma. He has developed a low-grade fever, slight cough. White blood count is elevated, and he reports shaking chills x2. Chest x-ray has been done an is clear. will check blood cultures and lactic acid level, obtaining a urine culture and CT scan of the abdomen and pelvis to evaluate for an abdominal collection. Doubt PE as this would be unlikely to cause shaking chills, but could account for other findings. Will check CTA of chest as well. Continue diet as tolerated. IV fluids added as p.o. intake is low and BUN has risen somewhat. Creatinine remains normal. Fall Risk Details Current Medications: Current Medications Acetaminophen (Acetaminophen 325 Mg Tablet) 650 mg PO Q6H PRN PRN Reason: Pain, Mild (Pain Scale 1-3) Last Admin: 08/31/21 11:35 Dose: 650 mg Documented by: Amlodipine Besylate (Amlodipine Besylate 10 Mg Tablet) 10 mg NG-TUBE DAILY [facility]; Protocol Last Admin: 08/31/21 11:09 Dose: Not Given Documented by: Benzocaine (Throat Lozenge, Medicated Lozenge) 1 lozenge MUCOUS MEM Q2H PRN PRN Reason: Sore Throat Last Admin: 08/27/21 12:25 Dose: 1 lozenge Documented by: Dextrose/Lactated Ringer's (D5lr) 1,000 mls @ 80 mls/hr IVCONT .[id number] [facility] Last Admin: 08/31/21 11:03 Dose: 80 mls/hr Documented by: Lidocaine (Lidocaine 4 % Patch Adh..Patch) 1 patch TRANSDERMA DAILY [facility]; Protocol Last Admin: 08/31/21 11:08 Dose: Not Given Documented by: Morphine Sulfate (Morphine Sulfate 2 Mg/Ml Cartridge) 4 mg IVPUSH Q2H PRN; Protocol PRN Reason: Pain, Moderate (Pain Scale 4-6 Last Admin: 08/26/21 00:49 Dose: 4 mg Documented by: Multi-Ingred Medicated Throat [place] (Throat [place], Medicated 20 Ml Bottle) 1 spray MUCOUS MEM Q2H PRN PRN Reason: Sore Throat Omeprazole (Omeprazole 20 Mg/10 Ml Susp.Recon) 20 mg PO DAILY@0630 [facility] Last Admin: 08/23/21 04:36 Dose: 20 mg Documented by: Ondansetron HCl (Ondansetron Hcl 4 Mg/2 Ml Vial) 4 mg IVPUSH Q8H PRN PRN Reason: Nausea and Vomiting Last Admin: 08/31/21 09:39 Dose: 4 mg Documented by: Sodium Chloride (0.9 % Sodium Chloride Flush 3 Ml Syringe) [address] [facility] Last Admin: 08/31/21 09:40 Dose: 3 ml Documented by: Time Spent With Patient Time: Total time spent is greater than 50% in coordination of care (as documented) at patient's floor/unit and/or counseling patient: Time with patient: 25 - 35 minutes Quality Stroke Does the patient have a stroke diagnosis?: No VTE Prior VTE?: No VTE Risk Level:: Medical - moderate - high VTE Device Contraindication: N/A - Device Ordered VTE Drug Contraindication: Treatment Not Indicated
[2021-08-31 13:01] LABS: Lactic Acid 1.6 mmol/L (0.5-2.0)
[2021-08-31] MEDS: Piperacillin Sodium/Tazobactam 3.375 GM in 0.9 % Sodium Chloride 50 ML IV ×2 (13:40→20:38)
[2021-08-31 15:29] VITALS: BP 92/48; PULSE 75; RESP 16; TEMP 36.8; O2SAT 97
[2021-08-31 16:12] LABS: Influenza A PCR NEGATIVE (Negative); Influenza B PCR NEGATIVE (Negative); Resp Syncy Virus RNA Qual PCR NEGATIVE (Negative); SARS COV2 PCR INHOUSE NEGATIVE (Negative)
--- NOTE | 2021-08-31 16:15 | HO.PM.IMCN ---
History of Present Illness Data of Consult Service Date: 08/31/21 Requesting physician: Yue Guzman Primary Care Provider: Padilla Corbett MD HPI 81-year-old male originally admitted for complaints abdominal pain and bloating over the previous week. 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 On to 08/23/2021, patient was taken to the OR by Dr. Brush where he underwent a palliative partial gastrectomy. He has been doing well with slow recovery on the surgical service however last night developed subjective fever with shaking chills. This a.m., patient still feels out of sorts and achy with mild fatigue. WBC 13,000. Workup pending including CTA of the chest as well as CT abdomen. Review of Systems Review of Systems: denies chest pain denies Denies shortness of breath Admits to nausea without vomiting and diarrhea Denies abdominal pain PMFSH Medical History Hypertension Functional capacity: independent ambulation Family History Father Past heart attack Mother Past heart attack Surgical History History of appendectomy Social History Household Members: None Housing: Apartment Do you presently have visiting nurse or other home services: No Alcohol intake: unknown Patient Tobacco Use Status: Former Tobacco user Quit Date: quit 26 yr ago Tobacco use type: Cigarette Years Smoked: 30 Second Hand Smoke Exposure: No service: Yes Current occupational status: retired [employer] Allergies Allergy/AdvReac Type Severity Reaction Status Date / Time No Known Allergies Allergy Verified 07/26/21 10:51 [No Known Allergies*] Active Medications: Current Medications Acetaminophen (Acetaminophen 325 Mg Tablet) 650 mg PO Q6H PRN PRN Reason: Pain, Mild (Pain Scale 1-3) Last Admin: 08/31/21 11:35 Dose: 650 mg Documented by: Amlodipine Besylate (Amlodipine Besylate 10 Mg Tablet) 10 mg NG-TUBE DAILY [facility]; Protocol Last Admin: 08/31/21 11:09 Dose: Not Given Documented by: Benzocaine (Throat Lozenge, Medicated Lozenge) 1 lozenge MUCOUS MEM Q2H PRN PRN Reason: Sore Throat Last Admin: 08/27/21 12:25 Dose: 1 lozenge Documented by: Dextrose/Lactated Ringer's (D5lr) 1,000 mls @ 80 mls/hr IVCONT .[id number] [facility] Last Admin: 08/31/21 11:03 Dose: 80 mls/hr Documented by: Piperacillin Sod/Tazobactam (Sod 3.375 gm/ Sodium Chloride) 50 mls @ 100 mls/hr IV Q6H [facility] Last Infusion: 08/31/21 14:23 Dose: Infused Documented by: Lidocaine (Lidocaine 4 % Patch Adh..Patch) 1 patch TRANSDERMA DAILY [facility]; Protocol Last Admin: 08/31/21 11:08 Dose: Not Given Documented by: Morphine Sulfate (Morphine Sulfate 2 Mg/Ml Cartridge) 4 mg IVPUSH Q2H PRN; Protocol PRN Reason: Pain, Moderate (Pain Scale 4-6 Last Admin: 08/26/21 00:49 Dose: 4 mg Documented by: Multi-Ingred Medicated Throat [place] (Throat [place], Medicated 20 Ml Bottle) 1 spray MUCOUS MEM Q2H PRN PRN Reason: Sore Throat Omeprazole (Omeprazole 20 Mg/10 Ml Susp.Recon) 20 mg PO DAILY@0630 [facility] Last Admin: 08/23/21 04:36 Dose: 20 mg Documented by: Ondansetron HCl (Ondansetron Hcl 4 Mg/2 Ml Vial) 4 mg IVPUSH Q8H PRN PRN Reason: Nausea and Vomiting Last Admin: 08/31/21 09:39 Dose: 4 mg Documented by: Sodium Chloride (0.9 % Sodium Chloride Flush 3 Ml Syringe) 3 ml IVFLUSH QSHIFT [facility] Last Admin: 08/31/21 15:39 Dose: Not Given Documented by: Physical Exam Vital Signs and Narrative: Vital Signs: Last Vital Signs Temp 98.2 F 08/31/21 15:29 Pulse 75 08/31/21 15:29 Resp 16 08/31/21 15:29 BP 92/48 L 08/31/21 15:29 Pulse Ox 97 08/31/21 15:29 BMI result Body Mass Index 20.3 Const: Other: awake alert in no acute distress. Ill-appearing HENMT: Other: membranes dry Resp: Other: clear to auscultation bilaterally. No rales rhonchi or wheezes Cardio: Other: no S4; positive S1-S2; no S3 murmurs rubs or gallops GI: Other: soft nontender nondistended with normoactive bowel sounds. No rebound or guarding noted Neuro: Other: cranial nerves 2-12 grossly intact as tested. Motor is 5/5 all extremities. Sensation is intact. Cognition is appropriate Extrem: Other: no edema bilaterally Results Labs CBC and Chem 7: 08/31/21 06:38 08/31/21 06:38 Labs: Laboratory Results - last 24 hr 08/31/21 08/31/21 08/31/21 06:38 06:38 12:22 MCV 90.6 MCH 30.1 MCHC 33.2 RDW 12.5 Plt Count 411 H MPV 9.9 Immature Gran % (Auto) 0.8 H Neut % (Auto) 91.5 H Lymph % (Auto) 4.0 L [place] % (Auto) 3.5 Eos % (Auto) 0.0 Baso % (Auto) 0.2 Lymph # (Auto) 0.5 L [place] # (Auto) 0.5 Eos # (Auto) 0.0 Baso # (Auto) 0.0 Abs Immat Gran (auto) 0.11 H Absolute Neuts (auto) 12.4 H Absolute Nucleated RBC 0.000 Nucleated RBC % (auto) 0.0 Smear Tech's Comments VERIFIED Anion Gap 11 L Estim Creat Clear Calc 76.8 Estimated GFR > 60 Random Glucose 116 H Lactic Acid 1.6 Calcium 8.2 L D Imaging Radiologist's Impressions: Impressions Chest X-Ray 08/31/21 10:58 IMPRESSION: Generalized hyperinflation is nonspecific, but can be seen with COPD. No acute cardiopulmonary process. Assessment and Plan (1) Gastric adenocarcinoma: Status: Acute (2) Hypertension: Status: Acute 81-year-old male with 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 1.Gastic adenocarcinoma.... new onset of chills congestion arthralgias overnight CT Abd/Pelvis along with CTA chest pending. Labs done...WBC's mildly elevated. Covid swab sent. 2.HTN Acceptable control 3. GERD Continue PPI. Will follow.
[2021-08-31] MEDS: iohexoL 350 MG/ML 100 ML INFUS..BTL IV (18:48)
[2021-08-31] MEDS: 0.9 % Sodium Chloride 500 ML IV (18:55)
[2021-08-31 19:33] VITALS: BP 108/57; PULSE 84; RESP 16; TEMP 36.8; O2SAT 99
[2021-08-31 23:12] VITALS: BP 108/58; PULSE 84; RESP 19; TEMP 36.9; O2SAT 97
[2021-09-01] MEDS: Piperacillin Sodium/Tazobactam 3.375 GM in 0.9 % Sodium Chloride 50 ML IV ×4 (01:04→18:22)
[2021-09-01] MEDS: Dextrose 5 % and Lactated Ring 1,000 ML 80 ML IVCONT (01:09)
[2021-09-01 04:00] VITALS: RESP 18
[2021-09-01 05:20] LABS: Hematocrit 28.8 % (42.0-52.0); Hemoglobin 9.5 g/dl (14.0-18.0); Mean Corpuscular Hemoglobin 30.3 pg (27.0-33.0); Mean Corpuscular Volume 91.7 fL (80.0-98.0); Mean Platelet Volume 10.3 fL (9.4-12.4); Platelet Count 326 X10*3/uL (160-400); Red Blood Count 3.14 X10*6/uL (4.60-5.80); Red Cell Distribution Width 12.8 % (11.0-16.0); White Blood Count 5.2 X10*3/uL (4.8-10.8)
[2021-09-01 05:49] LABS: Anion Gap 10 (12-20); Blood Urea Nitrogen 16 mg/dL (9-16); Calcium 7.6 mg/dL (8.4-10.2); Carbon Dioxide 25 mmol/L (22-29); Chloride 105 mmol/L (96-108); Creatinine Clr Calc Pharmacy 73.9; Estimated Glomerular Filt Rate > 60; Glucose Fasting 113 mg/dL (60-99); Sodium 136 mmol/L (135-145)
[2021-09-01 08:00] VITALS: BP 122/64; PULSE 82; RESP 18; TEMP 36.4; O2SAT 96
[2021-09-01] MEDS: amLODIPine Besylate 10 MG TABLET NG-TUBE (09:22)
--- NOTE | 2021-09-01 09:57 | P.PNIM_ITS ---
Subjective Subjective Date of Service: 09/01/21 Interval History: feels better today; taking breakfast without issue Review of Systems denies chest pain Denies shortness of breath Denies nausea vomiting diarrhea Physical Exam Vital Signs: Vital Signs: Last Vital Signs Temp 97.5 F 09/01/21 08:00 Pulse 82 09/01/21 08:00 Resp 18 09/01/21 08:00 BP 122/64 09/01/21 08:00 Pulse Ox 96 09/01/21 08:00 BMI result Body Mass Index 20.3 Const: Other: awake alert in no acute distress. Ill-appearing HENMT: Other: membranes dry Resp: Other: clear to auscultation bilaterally. No rales rhonchi or wheezes Cardio: Other: no S4; positive S1-S2; no S3 murmurs rubs or gallops GI: Other: soft nontender nondistended with normoactive bowel sounds. No rebound or guarding noted Neuro: Other: cranial nerves 2-12 grossly intact as tested. Motor is 5/5 all extremities. Sensation is intact. Cognition is appropriate Extrem: Other: no edema bilaterally Objective Data Active Medications Acetaminophen (Acetaminophen 325 Mg Tablet) 650 mg PO Q6H PRN PRN Reason: Pain, Mild (Pain Scale 1-3) Last Admin: 08/31/21 11:35 Dose: 650 mg Documented by: IRMA Amlodipine Besylate (Amlodipine Besylate 10 Mg Tablet) 10 mg NG-TUBE DAILY [facility]; Protocol Last Admin: 09/01/21 09:22 Dose: 10 mg Documented by: IRMA Benzocaine (Throat Lozenge, Medicated Lozenge) 1 lozenge MUCOUS MEM Q2H PRN PRN Reason: Sore Throat Last Admin: 08/27/21 12:25 Dose: 1 lozenge Documented by: LUANN Piperacillin Sod/Tazobactam (Sod 3.375 gm/ Sodium Chloride) 50 mls @ 100 mls/hr IV Q6H [facility] Last Infusion: 09/01/21 07:11 Dose: 0 mls/hr Documented by: IRMA Lidocaine (Lidocaine 4 % Patch Adh..Patch) 1 patch TRANSDERMA DAILY [facility]; Protocol Last Admin: 09/01/21 09:23 Dose: Not Given Documented by: IRMA Non-Admin Reason: Patient Refused Morphine Sulfate (Morphine Sulfate 2 Mg/Ml Cartridge) 4 mg IVPUSH Q2H PRN; Protocol PRN Reason: Pain, Moderate (Pain Scale 4-6 Last Admin: 08/26/21 00:49 Dose: 4 mg Documented by: DONY Multi-Ingred Medicated Throat [place] (Throat [place], Medicated 20 Ml Bottle) 1 sp ray MUCOUS MEM Q2H PRN PRN Reason: Sore Throat Omeprazole (Omeprazole 20 Mg/10 Ml Susp.Recon) 20 mg PO DAILY@0630 [facility] Last Admin: 08/23/21 04:36 Dose: 20 mg Documented by: DEANNA Ondansetron HCl (Ondansetron Hcl 4 Mg/2 Ml Vial) 4 mg IVPUSH Q8H PRN PRN Reason: Nausea and Vomiting Last Admin: 08/31/21 09:39 Dose: 4 mg Documented by: IRMA Sodium Chloride (0.9 % Sodium Chloride Flush 3 Ml Syringe) 3 ml IVFLUSH QSHIFT [facility] Last Admin: 09/01/21 07:32 Dose: Not Given Documented by: IRMA Non-Admin Reason: IV Running Labs CBC & Chem 7: 09/01/21 04:18 09/01/21 04:18 Labs: Laboratory Results - last 24 hr 08/15/21 08/16/21 08/17/21 19:19 05:14 06:02 WBC 9.2 9.6 9.2 MCV MCH MCHC RDW Plt Count MPV Absolute Nucleated RBC Nucleated RBC % (auto) Anion Gap Estim Creat Clear Calc Estimated GFR Fasting Glucose Lactic Acid Calcium Influenza Type A (PCR) Influenza Type B (PCR) RSV RNA Qual (PCR) SARS-CoV-2 RNA (RT-PCR) 08/18/21 08/19/21 08/20/21 05:48 03:58 04:49 WBC 8.5 7.4 6.6 MCV MCH MCHC RDW Plt Count MPV Absolute Nucleated RBC Nucleated RBC % (auto) Anion Gap Estim Creat Clear Calc Estimated GFR Fasting Glucose Lactic Acid Calcium Influenza Type A (PCR) Influenza Type B (PCR) RSV RNA Qual (PCR) SARS-CoV-2 RNA (RT-PCR) 08/21/21 08/22/21 08/24/21 05:15 05:23 06:05 WBC 6.0 6.0 9.9 MCV MCH MCHC RDW Plt Count MPV Absolute Nucleated RBC Nucleated RBC % (auto) Anion Gap Estim Creat Clear Calc Estimated GFR Fasting Glucose Lactic Acid Calcium Influenza Type A (PCR) Influenza Type B (PCR) RSV RNA Qual (PCR) SARS-CoV-2 RNA (RT-PCR) 08/25/21 08/26/21 08/27/21 05:17 03:54 05:20 WBC 8.0 8.0 10.7 MCV MCH MCHC RDW Plt Count MPV Absolute Nucleated RBC Nucleated RBC % (auto) Anion Gap Estim Creat Clear Calc Estimated GFR Fasting Glucose Lactic Acid Calcium Influenza Type A (PCR) Influenza Type B (PCR) RSV RNA Qual (PCR) SARS-CoV-2 RNA (RT-PCR) 08/31/21 08/31/21 08/31/21 06:38 12:22 14:45 WBC 13.6 H MCV MCH MCHC RDW Plt Count MPV Absolute Nucleated RBC Nucleated RBC % (auto) Anion Gap Estim Creat Clear Calc Estimated GFR Fasting Glucose Lactic Acid 1.6 Calcium Influenza Type A (PCR) NEGATIVE Influenza Type B (PCR) NEGATIVE RSV RNA Qual (PCR) NEGATIVE SARS-CoV-2 RNA (RT-PCR) NEGATIVE 09/01/21 09/01/21 04:18 04:18 WBC 5.2 MCV 91.7 MCH 30.3 MCHC 33.0 RDW 12.8 Plt Count 326 MPV 10.3 Absolute Nucleated RBC 0.000 Nucleated RBC % (auto) 0.0 Anion Gap 10 L Estim Creat Clear Calc 73.9 Estimated GFR > 60 Fasting Glucose 113 H Lactic Acid Calcium 7.6 L D Influenza Type A (PCR) Influenza Type B (PCR) RSV RNA Qual (PCR) SARS-CoV-2 RNA (RT-PCR) Microbiology Microbiology Results: Microbiology 08/31/21 12:22 Blood Culture - Preliminary Blood - Venous Prelim: GNR Gram Stain only 08/31/21 12:23 Blood Culture - Preliminary Blood - Venous Prelim: GNR Gram Stain only Assessment and Plan (1) Gastric adenocarcinoma: Status: Acute Assessment and Plan: 81-year-old male with 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 notes improvement this a.m. 1.Gastic adenocarcinoma Work up including CTA/CT abd/pelvis, Covid swab(-),CBC/divalents failed to demonstrate etiology of recent episode; WBC improved on Zosyn. Would continue same pending cultures 2.HTN Acceptable control 3. GERD Continue PPI. Will follow. Quality Stroke Does the patient have a stroke diagnosis?: No VTE Prior VTE?: No VTE Risk Level:: Medical - moderate - high VTE Device Contraindication: N/A - Device Ordered VTE Drug Contraindication: Treatment Not Indicated
--- NOTE | 2021-09-01 11:10 | P.PNGS_ITS ---
Subjective Subjective Date of Service: 09/01/21 Interval history: Feels much better today. No nausea. Afebrile overnight. No chills. Physical Exam Vital Signs: Vital Signs: Last Vital Signs Temp 97.5 F 09/01/21 08:00 Pulse 82 09/01/21 08:00 Resp 18 09/01/21 08:00 BP 122/64 09/01/21 08:00 Pulse Ox 96 09/01/21 08:00 BMI result Body Mass Index 20.3 Const: General: cooperative, comfortable, alert and awake Resp: Effort & Inspection: normal respiratory effort Auscultation: clear to auscultation bilaterally Cardio: Rate: regular rate Rhythm: regular rhythm GI: Other: Soft, mildly tender around incision, nondistended. Incision clean dry and intact Skin: Other: normal color, warm and dry Objective Data Active Medications Acetaminophen (Acetaminophen 325 Mg Tablet) 650 mg PO Q6H PRN PRN Reason: Pain, Mild (Pain Scale 1-3) Last Admin: 08/31/21 11:35 Dose: 650 mg Documented by: IRMA Amlodipine Besylate (Amlodipine Besylate 10 Mg Tablet) 10 mg NG-TUBE DAILY [facility]; Protocol Last Admin: 09/01/21 09:22 Dose: 10 mg Documented by: IRMA Benzocaine (Throat Lozenge, Medicated Lozenge) 1 lozenge MUCOUS MEM Q2H PRN PRN Reason: Sore Throat Last Admin: 08/27/21 12:25 Dose: 1 lozenge Documented by: LUANN Piperacillin Sod/Tazobactam (Sod 3.375 gm/ Sodium Chloride) 50 mls @ 100 mls/hr IV Q6H [facility] Last Infusion: 09/01/21 07:11 Dose: 0 mls/hr Documented by: IRMA Lidocaine (Lidocaine 4 % Patch Adh..Patch) 1 patch TRANSDERMA DAILY [facility]; Protocol Last Admin: 09/01/21 09:23 Dose: Not Given Documented by: IRMA Non-Admin Reason: Patient Refused Morphine Sulfate (Morphine Sulfate 2 Mg/Ml Cartridge) 4 mg IVPUSH Q2H PRN; Protocol PRN Reason: Pain, Moderate (Pain Scale 4-6 Last Admin: 08/26/21 00:49 Dose: 4 mg Documented by: HO.ODRISM Multi-Ingred Medicated Throat [place] (Throat [place], Medicated 20 Ml Bottle) 1 spray MUCOUS MEM Q2H PRN PRN Reason: Sore Throat Omeprazole (Omeprazole 20 Mg/10 Ml Susp.Recon) 20 mg PO DAILY@0630 [facility] Last Admin: 08/23/21 04:36 Dose: 20 mg Documented by: DEANNA Ondansetron HCl (Ondansetron Hcl 4 Mg/2 Ml Vial) 4 mg IVPUSH Q8H PRN PRN Reason: Nausea and Vomiting Last Admin: 08/31/21 09:39 Dose: 4 mg Documented by: IRMA Sodium Chloride (0.9 % Sodium Chloride Flush 3 Ml Syringe) 3 ml IVFLUSH QSHIFT [facility] Last Admin: 09/01/21 07:32 Dose: Not Given Documented by: IRMA Non-Admin Reason: IV Running Labs CBC & Chem 7: 09/01/21 04:18 09/01/21 04:18 Labs: Laboratory Results - last 24 hr 08/31/21 08/31/21 09/01/21 12:22 14:45 04:18 MCV 91.7 MCH 30.3 MCHC 33.0 RDW 12.8 Plt Count 326 MPV 10.3 Absolute Nucleated RBC 0.000 Nucleated RBC % (auto) 0.0 Anion Gap Estim Creat Clear Calc Estimated GFR Fasting Glucose Lactic Acid 1.6 Calcium Influenza Type A (PCR) NEGATIVE Influenza Type B (PCR) NEGATIVE RSV RNA Qual (PCR) NEGATIVE SARS-CoV-2 RNA (RT-PCR) NEGATIVE 09/01/21 04:18 MCV MCH MCHC RDW Plt Count MPV Absolute Nucleated RBC Nucleated RBC % (auto) Anion Gap 10 L Estim Creat Clear Calc 73.9 Estimated GFR > 60 Fasting Glucose 113 H Lactic Acid Calcium 7.6 L D Influenza Type A (PCR) Influenza Type B (PCR) RSV RNA Qual (PCR) SARS-CoV-2 RNA (RT-PCR) Imaging CT scan - abdomen: Radiologist's impression: Impressions Chest X-Ray 08/31/21 10:58 IMPRESSION: Generalized hyperinflation is nonspecific, but can be seen with COPD. No acute cardiopulmonary process. Abdomen/Pelvis CT 08/31/21 19:38 IMPRESSION: Persistent nonspecific but concerning mass in the right upper quadrant abutting the antrum of the stomach and pancreas. Persistent thickening of the wall of the antrum of the stomach. Findings remain concerning for gastric malignancy with adjacent necrotic node. Hypoattenuating lesion in the right lobe of the liver nonspecific and does not appear to represent a simple cyst. Neoplasm/metastatic disease remains a consideration particularly given the aforementioned findings. Indeterminate nodule left adrenal gland. Possibility of malignancy remains as noted previously particularly given the aforementioned findings. Chest CTA 08/31/21 19:38 IMPRESSION: 1. No CT angiographic evidence of acute pulmonary embolism. 2. No large, confluent airspace consolidation. 3. No lymphadenopathy. 4. Partially visualized gastric wall thickening, better evaluated on the concurrent CT abdomen/pelvis. VTE: Negative Microbiology Microbiology Results: Microbiology 08/31/21 13:35 Urine Culture - Final Urine clean catch - Urine dover top No growth. 08/31/21 12:22 Blood Culture - Preliminary Blood - Venous Prelim: GNR Gram Stain only 08/31/21 12:23 Blood Culture - Preliminary Blood - Venous Prelim: GNR Gram Stain only Procedures Date of Service Date of Service: 09/01/21 Progress Note: A&P Assessment and plan (1) S/P bypass gastrojejunostomy: Status: Acute (2) Gastric adenocarcinoma: Status: Acute Assessment and Plan: Feeling well and tolerating diet today. Etiology of fever and chills yesterday unclear. No significant findings on workup. no evidence of pneumonia, embolism or abdominal process. COVID negative. Symptoms have resolved today and he has remained afebrile. White blood count is normal. Zosyn was started empirically yesterday. Will continue on Zosyn for now. Anticipate discharge next 24-48 hours Fall Risk Details Current Medications: Current Medications Acetaminophen (Acetaminophen 325 Mg Tablet) 650 mg PO Q6H PRN PRN Reason: Pain, Mild (Pain Scale 1-3) Last Admin: 08/31/21 11:35 Dose: 650 mg Documented by: Amlodipine Besylate (Amlodipine Besylate 10 Mg Tablet) 10 mg NG-TUBE DAILY [facility]; Protocol Last Admin: 09/01/21 09:22 Dose: 10 mg Documented by: Benzocaine (Throat Lozenge, Medicated Lozenge) 1 lozenge MUCOUS MEM Q2H PRN PRN Reason: Sore Throat Last Admin: 08/27/21 12:25 Dose: 1 lozenge Documented by: Piperacillin Sod/Tazobactam (Sod 3.375 gm/ Sodium Chloride) 50 mls @ 100 mls/hr IV Q6H [facility] Last Infusion: 09/01/21 07:11 Dose: Infused Documented by: Lidocaine (Lidocaine 4 % Patch Adh..Patch) 1 patch TRANSDERMA DAILY [facility]; Protocol Last Admin: 09/01/21 09:23 Dose: Not Given Documented by: Morphine Sulfate (Morphine Sulfate 2 Mg/Ml Cartridge) 4 mg IVPUSH Q2H PRN; Protocol PRN Reason: Pain, Moderate (Pain Scale 4-6 Last Admin: 08/26/21 00:49 Dose: 4 mg Documented by: Multi-Ingred Medicated Throat [place] (Throat [place], Medicated 20 Ml Bottle) 1 spray MUCOUS MEM Q2H PRN PRN Reason: Sore Throat Omeprazole (Omeprazole 20 Mg/10 Ml Susp.Recon) 20 mg PO DAILY@0630 [facility] Last Admin: 08/23/21 04:36 Dose: 20 mg Documented by: Ondansetron HCl (Ondansetron Hcl 4 Mg/2 Ml Vial) 4 mg IVPUSH Q8H PRN PRN Reason: Nausea and Vomiting Last Admin: 08/31/21 09:39 Dose: 4 mg Documented by: Sodium Chloride (0.9 % Sodium Chloride Flush 3 Ml Syringe) 3 ml IVFLUSH QSHIFT [facility] Last Admin: 09/01/21 07:32 Dose: Not Given Documented by: Time Spent With Patient Time: Total time spent is greater than 50% in coordination of care (as documented) at patient's floor/unit and/or counseling patient: Time with patient: less than 15 minutes Quality Stroke Does the patient have a stroke diagnosis?: No VTE Prior VTE?: No VTE Risk Level:: Medical - moderate - high VTE Device Contraindication: N/A - Device Ordered VTE Drug Contraindication: Treatment Not Indicated
[2021-09-01 12:00] VITALS: BP 128/65; PULSE 76; RESP 18; TEMP 36.3; O2SAT 98
[2021-09-01 15:15] VITALS: BP 123/61; PULSE 70; RESP 17; TEMP 36.4; O2SAT 97
[2021-09-01] MEDS: 0.9 % Sodium Chloride Flush 3 ML SYRINGE IVFLUSH (18:22)
[2021-09-01 19:10] VITALS: BP 129/69; PULSE 77; RESP 18; TEMP 36.6; O2SAT 96
[2021-09-01 23:39] VITALS: BP 115/68; PULSE 70; RESP 18; TEMP 36.4; O2SAT 96
[2021-09-02] MEDS: Piperacillin Sodium/Tazobactam 3.375 GM in 0.9 % Sodium Chloride 50 ML IV ×4 (00:11→19:30)
[2021-09-02] MEDS: 0.9 % Sodium Chloride Flush 3 ML SYRINGE IVFLUSH ×4 (00:14→19:30)
[2021-09-02 03:36] VITALS: BP 106/62; PULSE 68; RESP 18; TEMP 36.2; O2SAT 96
[2021-09-02 07:40] VITALS: BP 114/67; PULSE 86; RESP 20; TEMP 36.6; O2SAT 99
[2021-09-02] MEDS: Lidocaine 4 % Patch ADH..PATCH 1 PATCH TRANSDERMA (08:13)
[2021-09-02] MEDS: amLODIPine Besylate 10 MG TABLET NG-TUBE (08:13)
--- NOTE | 2021-09-02 08:42 | P.PNGS_ITS ---
Subjective Subjective Date of Service: 09/02/21 <Aliza Perdue PA-C - Last Filed: 09/02/21 08:48> 09/02/21 <Alonso Brush MD - Last Filed: 09/02/21 10:55> Interval history: Febrile with rigors over the weekend. Symptoms have resolved and feels better. Tolerating diet and asking when he is going home. C/o R shoulder pain with OH extension for past 3-4 days. <Aliza Perdue PA-C - Last Filed: 09/02/21 08:48> Physical Exam Vital Signs: Vital Signs: Last Vital Signs Temp 97.8 F 09/02/21 07:40 Pulse 86 09/02/21 07:40 Resp 20 09/02/21 07:40 BP 114/67 09/02/21 07:40 Pulse Ox 99 09/02/21 07:40 BMI result Body Mass Index 20.3 <Aliza Perdue PA-C - Last Filed: 09/02/21 08:48> Const: General: comfortable, no acute distress and alert <Aliza Perdue PA-C - Last Filed: 09/02/21 08:48> Orientation/consciousness: patient oriented x3 <Aliza Perdue PA-C - Last Filed: 09/02/21 08:48> Resp: Effort & Inspection: normal respiratory effort <Aliza Perdue PA-C - Last Filed: 09/02/21 08:48> GI: Inspection: No distended and Yes incision (clean) <Aliza Perdue PA-C - Last Filed: 09/02/21 08:48> Palpation (GI): Soft to palpation <Aliza Perdue PA-C - Last Filed: 09/02/21 08:48> Skin: General skin exam: no rashes or lesions noted <Aliza Perdue PA-C - Last Filed: 09/02/21 08:48> Neuro: General: patient oriented x3 <Aliza Perdue PA-C - Last Filed: 09/02/21 08:48> Extrem: General: Yes no clubbing, cyanosis or edema <Aliza Perdue PA-C - Last Filed: 09/02/21 08:48> Objective Data Active Medications Acetaminophen (Acetaminophen 325 Mg Tablet) 650 mg PO Q6H PRN PRN Reason: Pain, Mild (Pain Scale 1-3) Last Admin: 08/31/21 11:35 Dose: 650 mg Documented by: IRMA Amlodipine Besylate (Amlodipine Besylate 10 Mg Tablet) 10 mg NG-TUBE DAILY [facility] 234 BEDS AT THE [facility]; Protocol Last Admin: 09/02/21 08:13 Dose: 10 mg Documented by: PAUL Benzocaine (Throat Lozenge, Medicated Lozenge) 1 lozenge MUCOUS MEM Q2H PRN PRN Reason: Sore Throat Last Admin: 08/27/21 12:25 Dose: 1 lozenge Documented by: LUANN Piperacillin Sod/Tazobactam (Sod 3.375 gm/ Sodium Chloride) 50 mls @ 100 mls/hr IV Q6H [facility] 234 BEDS AT THE [facility] Last Infusion: 09/02/21 07:20 Dose: 100 mls/hr Documented by: SILVANA Lidocaine (Lidocaine 4 % Patch Adh..Patch) 1 patch TRANSDERMA DAILY [facility] 234 BEDS AT THE [facility]; Protocol Last Admin: 09/02/21 08:13 Dose: 1 patch Documented by: PAUL Morphine Sulfate (Morphine Sulfate 2 Mg/Ml Cartridge) 4 mg IVPUSH Q2H PRN; Protocol PRN Reason: Pain, Moderate (Pain Scale 4-6 Last Admin: 08/26/21 00:49 Dose: 4 mg Documented by: DONY Multi-Ingred Medicated Throat [place] (Throat [place], Medicated 20 Ml Bottle) 1 spray MUCOUS MEM Q2H PRN PRN Reason: Sore Throat Omeprazole (Omeprazole 20 Mg/10 Ml Susp.Recon) 20 mg PO DAILY@0630 [facility]CLUDE 234 BEDS AT THE [facility] Last Admin: 08/23/21 04:36 Dose: 20 mg Documented by: DEANNA Ondansetron HCl (Ondansetron Hcl 4 Mg/2 Ml Vial) 4 mg IVPUSH Q8H PRN PRN Reason: Nausea and Vomiting Last Admin: 08/31/21 09:39 Dose: 4 mg Documented by: IRMA Sodium Chloride (0.9 % Sodium Chloride Flush 3 Ml Syringe) 3 ml IVFLUSH QSHIFT COUNTS INCLUDE 234 BEDS AT THE [facility] Last Admin: 09/02/21 08:13 Dose: 3 ml Documented by: PAUL <Aliza Perdue PA-C - Last Filed: 09/02/21 08:48> Labs CBC & Chem 7: : 09/01/21 04:18 09/01/21 04:18 <Aliza Perdue PA-C - Last Filed: 09/02/21 08:48> Microbiology Microbiology Results: Microbiology 08/31/21 12:23 Blood Culture - Preliminary Blood - Venous Gram negative salud 08/31/21 12:22 Blood Culture - Preliminary Blood - Venous Gram negative salud 08/31/21 13:35 Urine Culture - Final Urine clean catch - Urine dover top No growth. <Aliza Perdue PA-C - Last Filed: 09/02/21 08:48> Procedures Date of Service Date of Service: 09/02/21 <Aliza Perdue PA-C - Last Filed: 09/02/21 08:48> Progress Note: A&P Assessment and plan (1) S/P bypass gastrojejunostomy: Status: Acute <Aliza Perdue PA-C - Last Filed: 09/02/21 08:48> (2) Gastric adenocarcinoma: Status: Acute <Aliza Perdue PA-C - Last Filed: 09/02/21 08:48> (3) Gastric out let obstruction: Status: Acute <Aliza Perdue PA-C - Last Filed: 09/02/21 08:48> (4) Bacteremia: Status: Acute <Aliza Perdue PA-C - Last Filed: 09/02/21 08:48> Assessment and Plan: 81-year-old male patient with metastatic adenocarcinoma of the stomach with local extension to pancreas and transverse colon status post gastrojejunostomy.?Developed fever/rigors over weekend and underwent work up which was negative. Started on IV zosyn empirically. Blood cultures positive for GNR bacteria this morning. Symptoms have resolved today and he has remained afebrile >24h. White blood count is normal. Continue IV zosyn. Obtain ID consult re: GNR bacteremia and antibiotic recommendations. 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 Started on IV zosyn empirically. Blood cultures positive for GNR bacteria this morning. Symptoms have resolved today and he has remained afebrile >24h. White blood count is normal. Continue IV zosyn. Obtain ID consult re: GNR bacteremia and antibiotic recommendations. Events of the weekend noted, patient with rigors on Thursday associated with nausea. Workup significant for Gram Negative rods in [address] chest and abdomen/pelvis reviewed. No evidence of anastomotic leak or abscess. Agree with ID consultation. <Alonso Brush MD - Last Filed: 09/02/21 10:55> Fall Risk Details Current Medications: Current Medications Acetaminophen (Acetaminophen 325 Mg Tablet) 650 mg PO Q6H PRN PRN Reason: Pain, Mild (Pain Scale 1-3) Last Admin: 08/31/21 11:35 Dose: 650 mg Documented by: Amlodipine Besylate (Amlodipine Besylate 10 Mg Tablet) 10 mg NG-TUBE DAILY [facility]; Protocol Last Admin: 09/02/21 08:13 Dose: 10 mg Documented by: Benzocaine (Throat Lozenge, Medicated Lozenge) 1 lozenge MUCOUS MEM Q2H PRN PRN Reason: Sore Throat Last Admin: 08/27/21 12:25 Dose: 1 lozenge Documented by: Piperacillin Sod/Tazobactam (Sod 3.375 gm/ Sodium Chloride) 50 mls @ 100 mls/hr IV Q6H [facility] Last Infusion: 09/02/21 07:20 Dose: Infused Documented by: Lidocaine (Lidocaine 4 % Patch Adh..Patch) 1 patch TRANSDERMA DAILY [facility]; P rotocol Last Admin: 09/02/21 08:13 Dose: 1 patch Documented by: Morphine Sulfate (Morphine Sulfate 2 Mg/Ml Cartridge) 4 mg IVPUSH Q2H PRN; Protocol PRN Reason: Pain, Moderate (Pain Scale 4-6 Last Admin: 08/26/21 00:49 Dose: 4 mg Documented by: Multi-Ingred Medicated Throat [place] (Throat [place], Medicated 20 Ml Bottle) 1 spray MUCOUS MEM Q2H PRN PRN Reason: Sore Throat Omeprazole (Omeprazole 20 Mg/10 Ml Susp.Recon) 20 mg PO DAILY@0630 [facility]S INCLUDE 234 BEDS AT THE [facility] Last Admin: 08/23/21 04:36 Dose: 20 mg Documented by: Ondansetron HCl (Ondansetron Hcl 4 Mg/2 Ml Vial) 4 mg IVPUSH Q8H PRN PRN Reason: Nausea and Vomiting Last Admin: 08/31/21 09:39 Dose: 4 mg Documented by: Sodium Chloride (0.9 % Sodium Chloride Flush 3 Ml Syringe) 3 ml IVFLUSH QSHIFT COUNTS INCLUDE 234 BEDS AT THE [facility] Last Admin: 09/02/21 08:13 Dose: 3 ml Documented by: <Aliza Perdue PA-C - Last Filed: 09/02/21 08:48> Time Spent With Patient Time: Total time spent is greater than 50% in coordination of care (as documented) at patient's floor/unit and/or counseling patient: <Aliza Perdue PA-C - Last Filed: 09/02/21 08:48> Time with patient: 15 - 24 minutes <Aliza Perdue PA-C - Last Filed: 09/02/21 08:48> Quality Stroke Does the patient have a stroke diagnosis?: No <Aliza Perdue PA-C - Last Filed: 09/02/21 08:48> VTE Prior VTE?: No <Aliza Perdue PA-C - Last Filed: 09/02/21 08:48> VTE Risk Level:: Medical - moderate - high <MARY Chapa Last Filed: 09/02/21 08:48> VTE Device Contraindication: N/A - Device Ordered <MARY Chapa Last Filed: 09/02/21 08:48> VTE Drug Contraindication: Treatment Not Indicated <MARY Chapa Last Filed: 09/02/21 08:48>
[2021-09-02 12:00] VITALS: BP 123/70; PULSE 75; RESP 18; TEMP 36.2; O2SAT 97
--- NOTE | 2021-09-02 12:02 | MHC.CLN ---
F/U DIET ADVANCED FROM LOW RESIDUE/SOFT TO REGULAR TODAY. HAS BEEN TOLERATING DIET. INTAKE VARIABLE. 0-100%. CONTINUE ENSURE PUDDING TID AND ENSURE TID TO PROVIDE 1560 KCAL, 51 G PROTEIN. MONITOR PO INTAKE AND DIET TOLERANCE.
--- NOTE | 2021-09-02 15:19 | P.PNIM_ITS ---
Subjective Subjective Date of Service: 09/02/21 Interval History: remains afebrile overnight. No focal complaints Review of Systems denies chest pain Denies shortness of breath Denies nausea vomiting diarrhea Physical Exam Vital Signs: Vital Signs: Last Vital Signs Temp 97.1 F 09/02/21 12:00 Pulse 75 09/02/21 12:00 Resp 18 09/02/21 12:00 BP 123/70 09/02/21 12:00 Pulse Ox 97 09/02/21 12:00 BMI result Body Mass Index 20.3 Const: Other: awake alert in no acute distress. Ill-appearing HENMT: Other: membranes dry Resp: Other: clear to auscultation bilaterally. No rales rhonchi or wheezes Cardio: Other: no S4; positive S1-S2; no S3 murmurs rubs or gallops GI: Other: soft nontender nondistended with normoactive bowel sounds. No rebound or guarding noted Neuro: Other: cranial nerves 2-12 grossly intact as tested. Motor is 5/5 all extremities. Sensation is intact. Cognition is appropriate Extrem: Other: no edema bilaterally Objective Data Active Medications Acetaminophen (Acetaminophen 325 Mg Tablet) 650 mg PO Q6H PRN PRN Reason: Pain, Mild (Pain Scale 1-3) Last Admin: 08/31/21 11:35 Dose: 650 mg Documented by: IRMA Amlodipine Besylate (Amlodipine Besylate 10 Mg Tablet) 10 mg NG-TUBE DAILY [facility]; Protocol Last Admin: 09/02/21 08:13 Dose: 10 mg Documented by: PAUL Benzocaine (Throat Lozenge, Medicated Lozenge) 1 lozenge MUCOUS MEM Q2H PRN PRN Reason: Sore Throat Last Admin: 08/27/21 12:25 Dose: 1 lozenge Documented by: LUANN Piperacillin Sod/Tazobactam (Sod 3.375 gm/ Sodium Chloride) 50 mls @ 100 mls/hr IV Q6H [facility] Last Infusion: 09/02/21 13:34 Dose: 0 mls/hr Documented by: HARLEEN Lidocaine (Lidocaine 4 % Patch Adh..Patch) 1 patch TRANSDERMA DAILY [facility]; Protocol Last Admin: 09/02/21 08:13 Dose: 1 patch Documented by: PAUL Morphine Sulfate (Morphine Sulfate 2 Mg/Ml Cartridge) 4 mg IVPUSH Q2H PRN; Protocol PRN Reason: Pain, Moderate (Pain Scale 4-6 Last Admin: 08/26/21 00:49 Dose: 4 mg Documented by: DONY Multi-Ingred Medicated Throat [place] (Throat [place], Medicated 20 Ml Bottle) 1 spray MUCOUS MEM Q2H PRN PRN Reason: Sore Throat Omeprazole (Omeprazole 20 Mg/10 Ml Susp.Recon) 20 mg PO DAILY@0630 [facility] Last Admin: 08/23/21 04:36 Dose: 20 mg Documented by: DEANNA Ondansetron HCl (Ondansetron Hcl 4 Mg/2 Ml Vial) 4 mg IVPUSH Q8H PRN PRN Reason: Nausea and Vomiting Last Admin: 08/31/21 09:39 Dose: 4 mg Documented by: IRMA Sodium Chloride (0.9 % Sodium Chloride Flush 3 Ml Syringe) 3 ml IVFLUSH QSHIFT [facility] Last Admin: 09/02/21 08:13 Dose: 3 ml Documented by: MAGT Labs CBC & Chem 7: 09/01/21 04:18 09/01/21 04:18 Microbiology Microbiology Results: Microbiology 08/31/21 12:23 Blood Culture - Preliminary Blood - Venous Gram negative salud 08/31/21 12:22 Blood Culture - Preliminary Blood - Venous Gram negative salud Assessment and Plan (1) Bacteremia: Status: Acute Assessment and Plan: 81-year-old male with 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 notes improvement this a.m. 1. Bacteremia GNR prelim. ID consult pending. Continue Zosyn 2.HTN Acceptable control 3. GERD Continue PPI. Will follow. Quality Stroke Does the patient have a stroke diagnosis?: No VTE Prior VTE?: No VTE Risk Level:: Medical - moderate - high VTE Device Contraindication: N/A - Device Ordered VTE Drug Contraindication: Treatment Not Indicated
[2021-09-02 15:28] VITALS: BP 120/65; PULSE 65; RESP 18; TEMP 36.3; O2SAT 98
[2021-09-02 20:00] VITALS: BP 134/64; PULSE 76; RESP 17; TEMP 36.2; O2SAT 97
[2021-09-02 23:54] VITALS: BP 110/55; PULSE 62; RESP 18; TEMP 36.1; O2SAT 96
[2021-09-03] MEDS: Piperacillin Sodium/Tazobactam 3.375 GM in 0.9 % Sodium Chloride 50 ML IV ×2 (00:49→06:03)
[2021-09-03 03:41] VITALS: BP 124/73; PULSE 61; RESP 18; TEMP 36.2; O2SAT 98
[2021-09-03 05:44] LABS: MANUAL DIFF FLAG NO
[2021-09-03 05:49] LABS: Basophils Percent Auto 0.5 % (0-2); Eosinophils Absolute Auto 0.1 X10*3/uL (0.0-0.4); Eosinophils Percent Auto 2.1 % (0-4); Hematocrit 30.9 % (42.0-52.0); Imm Gran Abs Auto 0.02 X10*3/uL (0.00-0.03); Imm Gran Pct Auto 0.3 % (0.0-0.4); Lymphocytes Absolute Auto 1.4 X10*3/uL (1.2-4.9); Lymphocytes Percent Auto 23.7 % (20-40); Mean Corpuscular HGB Conc 32.4 g/dl (31.0-36.0); Mean Corpuscular Hemoglobin 29.4 pg (27.0-33.0); Mean Corpuscular Volume 90.9 fL (80.0-98.0); Mean Platelet Volume 10.3 fL (9.4-12.4); Monocytes Absolute Auto 0.6 X10*3/uL (0.1-1.2); Monocytes Percent Auto 10.8 % (2-11); Neutrophils Absolute Auto 3.6 x10*3/uL (2.0-8.3); Neutrophils Percent Auto 62.6 % (45-73); Platelet Count 384 X10*3/uL (160-400); Red Cell Distribution Width 12.5 % (11.0-16.0); White Blood Count 5.7 X10*3/uL (4.8-10.8)
[2021-09-03 06:27] LABS: Alanine Aminotransferase 35 U/L (0-40); Alkaline Phosphatase 177 U/L (39-117); Anion Gap 11 (12-20); Aspartate Amino Transferase 31 U/L (5-37); Bilirubin Total 0.3 mg/dL (0.0-1.0); Blood Urea Nitrogen 11 mg/dL (9-16); Calcium 8.6 mg/dL (8.4-10.2); Carbon Dioxide 26 mmol/L (22-29); Chloride 106 mmol/L (96-108); Estimated Glomerular Filt Rate > 60; Glucose Fasting 95 mg/dL (60-99); Potassium 4.3 mmol/L (3.3-5.1); Sodium 139 mmol/L (135-145); Total Protein 5.3 g/dL (6.5-8.0)
[2021-09-03 07:31] VITALS: BP 138/71; PULSE 63; RESP 18; TEMP 36.3; O2SAT 97
--- NOTE | 2021-09-03 08:38 | MHC.CM.PN ---
Patient has been medically cleared for dc to home today, self care. CM met with Patient at bedside and addressed Second IMM, providing him with the original and placing a copy on the chart. Patient will transport home via [facility] at 3PM.
[2021-09-03] MEDS: amLODIPine Besylate 10 MG TABLET NG-TUBE (09:47)
[2021-09-03] MEDS: Lidocaine 4 % Patch ADH..PATCH 1 PATCH TRANSDERMA (09:47)
[2021-09-03] MEDS: 0.9 % Sodium Chloride Flush 3 ML SYRINGE IVFLUSH (09:48)
[2021-09-03 11:33] VITALS: BP 130/78; PULSE 69; RESP 18; TEMP 36.3; O2SAT 99
--- NOTE | 2021-09-03 12:49 | P.CNID_ITS ---
History of Present Illness Data of Consult Service Date: 09/02/21 Requesting physician: Alonso Brush Primary Care Provider: Padilla Corbett MD HPI Reason for consult: bacteremia,serratia marcescans He presents with abdominal discomfort 8/10 ER on 08/15 and was found to have concerning area of gastric mass on CT scan of abdomen. He had nausea and vomiting. He has had palliative gastectomy healing well and blood cultures show serratia marcescans He is eating and feeling better Review of Systems Review of Systems: Yes all other systems are reviewed and are negative [facility] Past Medical History Medical History Hypertension Functional capacity: independent ambulation Family History Family History Father Past heart attack Mother Past heart attack Family history: reviewed and not pertinent Surgical History Surgical History History of appendectomy Social History Social History Household Members: None Housing: Apartment Do you presently have visiting nurse or other home services: No Alcohol intake: unknown Patient Tobacco Use Status: Former Tobacco user Quit Date: quit 26 yr ago Tobacco use type: Cigarette Years Smoked: 30 Second Hand Smoke Exposure: No service: Yes Current occupational status: retired [employer] Allergies Allergy/AdvReac Type Severity Reaction Status Date / Time No Known Allergies Allergy Verified 07/26/21 10:51 [No Known Allergies*] Active Medications: Current Medications Acetaminophen (Acetaminophen 325 Mg Tablet) 650 mg PO Q6H PRN PRN Reason: Pain, Mild (Pain Scale 1-3) Last Admin: 08/31/21 11:35 Dose: 650 mg Documented by: Amlodipine Besylate (Amlodipine Besylate 10 Mg Tablet) 10 mg NG-TUBE DAILY [facility]; Protocol Last Admin: 09/03/21 09:47 Dose: 10 mg Documented by: Benzocaine (Throat Lozenge, Medicated Lozenge) 1 lozenge MUCOUS MEM Q2H PRN PRN Reason: Sore Throat Last Admin: 08/27/21 12:25 Dose: 1 lozenge Documented by: Piperacillin Sod/Tazobactam (Sod 3.375 gm/ Sodium Chloride) 50 mls @ 100 mls/hr IV Q6H [facility] Last Infusion: 09/03/21 06:37 Dose: Infused Documented by: Lidocaine (Lidocaine 4 % Patch Adh..Patch) 1 patch TRANSDERMA DAILY [facility]; Protocol Last Admin: 09/03/21 09:47 Dose: 1 patch Documented by: Morphine Sulfate (Morphine Sulfate 2 Mg/Ml Cartridge) 4 mg IVPUSH Q2H PRN; Protocol PRN Reason: Pain, Moderate (Pain Scale 4-6 Last Admin: 08/26/21 00:49 Dose: 4 mg Documented by: Multi-Ingred Medicated Throat [place] (Throat [place], Medicated 20 Ml Bottle) 1 spray MUCOUS MEM Q2H PRN PRN Reason: Sore Throat Omeprazole (Omeprazole 20 Mg/10 Ml Susp.Recon) 20 mg PO DAILY@0630 [facility] Last Admin: 08/23/21 04:36 Dose: 20 mg Documented by: Ondansetron HCl (Ondansetron Hcl 4 Mg/2 Ml Vial) 4 mg IVPUSH Q8H PRN PRN Reason: Nausea and Vomiting Last Admin: 08/31/21 09:39 Dose: 4 mg Documented by: Sodium Chloride (0.9 % Sodium Chloride Flush 3 Ml Syringe) 3 ml IVFLUSH QSHIFT [facility] Last Admin: 09/03/21 09:48 Dose: 3 ml Documented by: Physical Exam Vital Signs: Vital Signs: Last Vital Signs Temp 97.3 F 09/03/21 11:33 Pulse 69 09/03/21 11:33 Resp 18 09/03/21 11:33 BP 130/78 09/03/21 11:33 Pulse Ox 99 09/03/21 11:33 BMI result Body Mass Index 20.3 Const: General: cooperative HENMT: Head: Yes normal to inspection Mouth: Normal oral and palatal mucosa present Eyes: General: appearance normal, both eyes and all related structures Resp: Effort & Inspection: normal respiratory effort Cardio: Rate: regular rate GI: Palpation (GI): Soft to palpation and nontender Extrem: General: Yes normal to inspection Results Labs CBC & Chem 7: 09/03/21 05:22 09/03/21 05:22 Labs: Short CBC 09/03/21 Range/Units 05:22 WBC 5.7 (4.8-10.8) X10*3/uL Hgb 10.0 L (14.0-18.0) g/dl Hct 30.9 L (42.0-52.0) % Plt Count 384 (160-400) X10*3/uL BMP 09/03/21 05:22 Sodium 139 Potassium 4.3 Chloride 106 Carbon Dioxide 26 BUN 11 Creatinine 0.86 Calcium 8.6 D Liver Function 09/03/21 Range/Units 05:22 Total Bilirubin 0.3 (0.0-1.0) mg/dL AST 31 D (5-37) U/L ALT 35 (0-40) U/L Alkaline Phosphatase 177 H D (39-117) U/L Albumin 3.0 L (3.5-5.0) g/dL Microbiology Microbiology Results: Microbiology 08/31/21 12:23 Blood - Venous Blood Culture - Final Serratia marcescens 08/31/21 12:22 Blood - Venous Blood Culture - Final Serratia marcescens 08/31/21 13:35 Urine clean catch - Urine dover top Urine Culture - Final No growth. Assessment and Plan (1) Bacteremia: Status: Acute Serratia can develop resistance to many agents in vivo Would continue Zosyn until reliably eating and then po Levaquin for total 21 d antibiotics Prognosis guarded (2) S/P bypass gastrojejunostomy: Status: Acute (3) Gastric adenocarcinoma: Status: Acute
--- NOTE | 2021-09-03 13:23 | P.DS_ITS ---
DS: Providers Provider Date of Service: 09/03/21 Date of admission: 08/15/21 22:22 Primary care physician: Padilla Corbett MD Consults: 08/15/21 22:21 Consult to Gastroenterology Routine Consulting Provider: Jennifer Bro Reason for consultation: gastric lesion; liver lesion Consult to Hematology / Oncology Routine Consulting Provider: Tiara Conroy Reason for consultation: Gastric lesion; liver lesion; Adrenal Nodule 08/19/21 16:39 Consult to General Surgery Routine Consulting Provider: Lauro Sterling Reason for consultation: ? partial gastrectomy Has provider been notified: No 08/31/21 12:40 Consult to Hospitalist Routine Consulting Provider: Hospitalist Reason For Exam: fever, metastatic gastric CA 09/02/21 08:39 Consult to Infectious Diseases Routine Consulting Provider: Michelle Campbell Reason for consultation: GNR bacteremia Has provider been notified: No DS: Diagnosis Discharge Diagnosis (1) Bacteremia: Status: Acute (2) S/P bypass gastrojejunostomy: Status: Acute (3) Gastric adenocarcinoma: Status: Acute DS: Summary Hospital Course Hospital Course: From H&P on day of admission 81-year-old male with a past medical history of hypertension presented to the hospital with a chief complaint of abdominal pain.?Patient reported that of past few days he has been having abdominal discomfort and acid reflux symptoms.? But last night and yesterday he had leg increased abdominal pain not able to take anything p.o. had nausea and vomiting at home, denies any blood in the vomiting.? Denies any blood in the stool.?Denies any chest pain palpitations lightheadedness or dizziness.?Denies any fever chills cough.?Denies any urinary symptoms. Review of all other systems is negative except mentioned above.ER course: Per ER team on CT scan noted to have gastric lesion, hepatic nodule, adrenal nodule; discussed with general surgery who recommended admission to the medicine service.? ER team also notified Gastroenterology for possible EGD.? Admitted for further management. Gastric mass. Shown on abdominal CT upon presentation to the ER. 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 There may be some adrenal involvement as well. 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 He was seen by both general surgery and oncology. General surgery recommended likely partial gastrectomy once bipsy results have returned. Oncology has recommended PET scan for staging and likely preoperative chemotherapy. At this time, the patient is able to tolerate liquids, he will be discharged home with plans for close follow-up with of Oncology and surgery. This was discussed with the patient in detail and he is in agreement with plan. Biopsy results are pending at the time of discharge. Time Spent with Patient Time attestation: Total time spent providing and/or coordinating discharge services: Discharge coordination time: Greater than 30 minutes Quality: Stroke Does the patient have a stroke diagnosis?: No Physical Exam Vital Signs: Vital Signs: Last Vital Signs Temp 97.3 F 09/03/21 11:33 Pulse 69 09/03/21 11:33 Resp 18 09/03/21 11:33 BP 130/78 09/03/21 11:33 Pulse Ox 99 09/03/21 11:33 BMI result Body Mass Index 20.3 Const: Other: awake alert in no acute distress. Ill-appearing HENMT: Other: membranes dry Resp: Other: clear to auscultation bilaterally. No rales rhonchi or wheezes Cardio: Other: no S4; positive S1-S2; no S3 murmurs rubs or gallops GI: Other: soft nontender nondistended with normoactive bowel sounds. No rebound or guarding noted Neuro: Other: cranial nerves 2-12 grossly intact as tested. Motor is 5/5 all extremities. Sensation is intact. Cognition is appropriate Extrem: Other: no edema bilaterally DS: Data Data Completed and Pending Completed studies during hospitalization [Text1]: Pending at discharge 08/19/21 15:35 Surgical [PTH] Routine 08/23/21 15:20 Surgical [PTH] Routine Labs on day of discharge: Laboratory Results - last 24 hr 09/03/21 09/03/21 05:22 05:22 WBC 5.7 RBC 3.40 L Hgb 10.0 L Hct 30.9 L MCV 90.9 MCH 29.4 MCHC 32.4 RDW 12.5 Plt Count 384 MPV 10.3 Immature Gran % (Auto) 0.3 Neut % (Auto) 62.6 Lymph % (Auto) 23.7 [place] % (Auto) 10.8 Eos % (Auto) 2.1 Baso % (Auto) 0.5 Lymph # (Auto) 1.4 [place] # (Auto) 0.6 Eos # (Auto) 0.1 Baso # (Auto) 0.0 Abs Immat Gran (auto) 0.02 Absolute Neuts (auto) 3.6 Absolute Nucleated RBC 0.000 Nucleated RBC % (auto) 0.0 Sodium 139 Potassium 4.3 Chloride 106 Carbon Dioxide 26 Anion Gap 11 L BUN 11 Creatinine 0.86 Estim Creat Clear Calc 67.0 Estimated GFR > 60 Fasting Glucose 95 Calcium 8.6 D Total Bilirubin 0.3 AST 31 D ALT 35 Alkaline Phosphatase 177 H D Total Protein 5.3 L Albumin 3.0 L Discharge Plan Discharge Patient Disposition: Home, Self-Care Discharge Diagnosis: Gastric mass, s/p gastrojejunostomy Referrals: Tiara Conroy MD [Physician] - 1 Week Alonso Brush MD [Physician] - 1 Week Physician,Saida Hopkins [Physician] - 1 Week Discharge Medications: New omeprazole magnesium 10 mg susp,delayed release for recon 20 mg PO DAILY Qty: 30 RF: 0 amoxicillin-pot clavulanate [Augmentin] 500-125 mg tablet 1 tab PO Q8H Qty: 30 RF: 0 levofloxacin 500 mg tablet 500 mg PO DAILY Qty: 21 RF: 0 Continued amlodipine 5 mg tablet 5 mg PO DAILY Qty: 90 RF: 4 Discontinued hydrochlorothiazide 25 mg tablet 25 mg PO DAILY Qty: 90 RF: 4 Discharge Orders: Discharge Order (Routine); Ordered 09/03/21 Ordered By: Alonso Brush Diet: other and regular diet Activity on Discharge: No heavy lifting Stand Alone Forms: Patient Portal Discharge page Activity Restrictions/Additional Instructions: If the incision area is tender, you may apply an ice pack for short intervals (No more than 20 minutes on, followed by at least 20 minutes off). Do not apply heat. Do not use creams, lotions, or topical antibiotics unless instructed to do so by your surgeon. These can cause infection or allergic reaction. Ok to shower. You have jasper closing your incision and these will be removed approximately 10-14 days after surgery. NO HEAVY LIFTING (>10lbs). Follow up in office with Dr. Brush. ([phone]) Call Your Doctor If: -Your temperature exceeds 101.5? F -You experience excessive pain or swelling -You have an unexpected reaction to medication -You have excessive bleeding -You experience continued vomiting/nausea -Your incision begins to separate -Your incision shows signs of infection such as increased redness, swelling, excessive pain, drainage (light blood or clear fluid is normal) or heat Care Plan Goals: follow-up for gastric mass Health Concerns: gastric mass gastric outlet obstruction s/p gastrojejunostomy Plan of Treatment: call to schedule follow-up with oncology for further treatment call to schedule follow up with Dr. Brush you have been started on a new medication called omeprazole Assessment: Doing well post op.
--- NOTE | 2021-09-06 14:15 | MHC.HEMONC ---
Attempting to reach out to pt per Dr Conroy for f/u here post hospitalization. She will be ordering PET for him.
== END 2021-09-03 14:25 | disposition home or self-care (01) | DRG 327 ==
LOC: HO.ED 21:54 → HO.EDOVER 22:31 → HO.S3 08-16 18:38
PROVIDERS: Hospitalist; Internal Medicine Gastroenterology; Nurse Practitioner Acute Care; Physician Assistant Medical; Surgery; Admitting Provider Hospitalist; Emergency Provider Student in an Organized Health Care Education/Training Program; PCP Internal Medicine; Visit Provider Surgery
PROC: 0DJ08ZZ Inspection of Upper Intestinal Tract, Via Natural or Artificial Opening Endoscopic (ICD-10-PCS; CPT 43235; principal; 2021-08-19 13:40)
PROC: 0D160ZA Bypass Stomach to Jejunum, Open Approach (ICD-10-PCS; CPT 49000; principal; 2021-08-23 13:10)
DX: C16.9 Malignant neoplasm of stomach, unspecified (principal); C78.6 Secondary malignant neoplasm of retroperitoneum and peritoneum; C78.89 Secondary malignant neoplasm of other digestive organs; C78.5 Secondary malignant neoplasm of large intestine and rectum; C78.4 Secondary malignant neoplasm of small intestine; K31.1 Adult hypertrophic pyloric stenosis; E44.0 Moderate protein-calorie malnutrition; R78.81 Bacteremia; K21.9 Gastro-esophageal reflux disease without esophagitis; I10 Essential (primary) hypertension; E27.9 Disorder of adrenal gland, unspecified; Z68.20 Body mass index [BMI] 20.0-20.9, adult; Z20.822 Contact with and (suspected) exposure to COVID-19; Z23 Encounter for immunization; Z87.891 Personal history of nicotine dependence; Z79.899 Other long term (current) drug therapy
CPT/HCPCS: 0241U; 36415; 71045; 71046; 71275; 73030; 74177; 74240; 80048; 80053; 81003; 82105; 82272; 82378; 82947; 83605; 83690; 84484; 85025; 85027; 87040; 87077; 87086; 87186; 87205; 87635; 88305; 88342; 88360; 93005; 97162; 99024; 99213; 99285; J0131; J0690; J1100; J1170; J2270; J2405; J2543; J3010; Q9967

== ENCOUNTER → 2021-09-19 14:04 | Outpatient (BNVA) | payer MEDICARE, OTHER, SELFPAY | PROVIDERS: PCP Internal Medicine; Visit Provider Surgery | DX: C16.9 Malignant neoplasm of stomach, unspecified (principal); K31.1 Adult hypertrophic pyloric stenosis; Z98.0 Intestinal bypass and anastomosis status | CPT/HCPCS: 99212 ==

== ENCOUNTER 2021-10-08 09:01 | Outpatient (REF) | payer MEDICARE, OTHER, SELFPAY ==
--- NOTE | ~2021-10-08 | PE_ITS ---
EXAMINATION: Fluorine-18 FDG PET/CT Scan CLINICAL INDICATION: Initial treatment management. Gastric adenocarcinoma, initial staging. PROCEDURE: 64 minutes following the intravenous administration of 16.1 mCi of fluorine 18 FDG, images from the base of the skull to the mid thighs were obtained using a combined PET/CT scanner with CT scan based attenuation correction. No oral contrast was administered. No intravenous contrast was administered. Transverse, coronal, sagittal, and volume reconstruction projections were obtained. The patient's blood glucose as determined by a finger stick, was 95 mg/dl immediately prior to injection. Total CT exam dose-length product 238.8 mGy-cm * These CT images were obtained using dose optimization techniques as appropriate, variously including the following: Automated exposure control * Adjustment of mA and/or kV according to patient size (this includes techniques or standardized protocols for targeted exams where dose is matched to indication/reason for exam; i.e. extremities or head) * Use of iterative reconstruction technique COMPARISON: No previous PET/CT scan is available for comparison. CT angiogram of the chest and CT of the abdomen and pelvis both dated 08/31/2021 are available for comparison. FINDINGS: (Slice numbers described in this report are numbered superiorly to inferiorly with slice #1 in the head) NECK AND VISUALIZED HEAD: No foci of abnormal FDG activity are noted. The distribution of FDG activity is physiological. There is no cervical lymphadenopathy. THORAX: No foci of abnormal FDG activity are present in the chest. Biapical scarring is noted with no associated abnormal FDG activity. No discrete pulmonary nodules are visualized. There is no pleural or pericardial fluid, or pneumothorax. There is no mediastinal, supraclavicular, or axillary lymphadenopathy. ABDOMEN AND PELVIS: There is intense abnormal FDG activity associated with a mass in the right upper quadrant which is confluent with wall thickening in the pyloric aspect of the distal stomach. There is some central photopenia within the mass associated with some mild hypointensity on the CT images but the latter was better visualized on the 08/31/[address] scan of the abdomen and pelvis which was performed with intravenous contrast. The SUVmax within the mass is 21.6, slice 153/267. Multiple FDG avid hepatic hypodensities are rising, almost all within the right lobe. Balance Engineer are a focus in liver Couinaud segment for a showing SUVmax 14.4, slice 145/267 an another in liver Couinaud segment 7. Liver multiple additional FDG avid hepatic hypodensities are present. The gallbladder and spleen are unremarkable. The pancreas abuts the previously described right upper quadrant mass, but is otherwise unremarkable. Both adrenal glands appear full but did not show abnormal FDG activity and are not significantly changed in appearance from 08/31/2021. Several suture lines are present in and adjacent to the stomach but these are not associated with abnormal FDG activity. There is no retroperitoneal, pelvic or inguinal lymphadenopathy. The prostate gland is enlarged measuring 6.0 cm in largest transverse dimension. The pelvic organs are otherwise unremarkable MUSCULOSKELETAL: No foci of abnormal FDG activity are present in the osseous structures. There are degenerative changes in the spine but no suspicious sclerotic or lytic lesions are visualized. VASCULAR: Vascular calcifications including coronary are noted. PET/PET CT fusion skull to thigh IMPRESSION: 1. An intensely FDG avid right upper quadrant mass is contiguous with intensely FDG avid wall thickening in the pyloric region of the distal stomach. This is most likely a primary malignancy. 2. Multiple FDG avid liver metastases are present. 3. No additional abnormalities suspicious for other metastatic or malignant lesions are noted. 4. Vascular calcifications including coronary are noted.
== END 2021-10-08 09:02 | disposition home or self-care (01) ==
LOC: HO.PET 09:01
PROVIDERS: Visit Provider Internal Medicine Medical Oncology
DX: Z13.89 Encounter for screening for other disorder (principal)

== ENCOUNTER 2021-10-10 09:05 | Day surgery (SDC) | payer MEDICARE, OTHER, SELFPAY ==
--- NOTE | ~2021-10-10 | IR_ITS ---
EXAMINATION: US FLUOROSCOPY-GUIDED PLACEMENT OF TUNNELED CATHETER CLINICAL INFORMATION: Gastric carcinoma. Needs chemotherapy. COMPARISON: None TECHNIQUE: Following explaining ultrasound fluoroscopy-guided placement of a right tunneled portacatheter procedure, benefits and risk, a written consent was obtained. Preliminary ultrasound imaging was obtained through the right neck, and optimal site was selected and marked. The site was cleaned and draped in usual sterile manner. 1% lidocaine was injected at the marked puncture site. A single wall needle was then introduced through the skin and right jugular vein was punctured under sterile ultrasound guidance. A thin guidewire was then advanced through the needle into the SVC and needle withdrawn. A 5-Nigerian dilator was placed over the guidewire and anchored to the patient's drape. Approximately 1 gauze length away from the neck incision along the right anterolateral chest wall, 1% lidocaine was injected and a small skin incision approximately 2 inches wide was performed. A pocket was created inferior to the suture line with blunt dissection. A trial of port chamber to be inserted into the pocket was performed. The port was then inserted into the pocket and anchored to subcutaneous soft tissue with nonabsorbable 3-0 nylon sutures. 1% lidocaine was subcutaneously injected from the right neck incision to the anterior chest wall incision. A tunneler attached to a catheter which was attached to the port was then bluntly tunneled from the anterior chest wall incision to the neck wall incision. The tunneler with the catheter was then pulled through the right anterior neck wall incision. The guidewire and the 5 Nigerian dilator were removed. Through the 5-Nigerian sheath a 0.035 J-wire was introduced under fluoroscopy and placed in the IVC. The 5-Nigerian sheath was removed and was replaced by a 6.6-Nigerian peel-away sheath with dilator. The dilator and the guidewire were removed. The catheter was sized and then inserted through the peel-away sheath. The peel-away sheath as the catheter was held in position. Finally, the peel-away sheath was removed and a single image was obtained over the chest for documentation of catheter position. The anterior chest wall incision was sutured in two layers with absorbable sutures. The first layer was subcutaneous and adipose tissue. The second layer was the skin sutured together. A Dermabond was placed on the skin and topped with sterile dressing. The anterior neck incision was sutured with 3-0 absorbable sutures and covered with sterile dressing. The Port-A-Cath was flushed prior to insertion and followed after incision with saline and subsequently with 5 units of heparin. Conscious sedation was utilized during the exam. Patient tolerated the procedure extremely well. FINDINGS: On preliminary ultrasound imaging, there is widely patent jugular vein. A 6.6-Nigerian 20 cm long tunneled catheter was then inserted from a right jugular vein approach. IR/IR cvc repo tunnel w port IMPRESSION: Successful ultrasound and fluoroscopy-guided placement of a 6.6-Nigerian 20 cm long tunneled catheter with its tip in mid SVC ready for use.
[2021-10-10 09:25] VITALS: BMI 18.3
[2021-10-10 09:38] LABS: MANUAL DIFF FLAG NO
[2021-10-10 09:42] LABS: Basophils Percent Auto 0.7 % (0-2); Eosinophils Absolute Auto 0.2 X10*3/uL (0.0-0.4); Eosinophils Percent Auto 3.3 % (0-4); Hematocrit 36.1 % (42.0-52.0); Hemoglobin 11.4 g/dl (14.0-18.0); Imm Gran Abs Auto 0.01 X10*3/uL (0.00-0.03); Imm Gran Pct Auto 0.2 % (0.0-0.4); Lymphocytes Absolute Auto 1.2 X10*3/uL (1.2-4.9); Lymphocytes Percent Auto 21.3 % (20-40); Mean Corpuscular HGB Conc 31.6 g/dl (31.0-36.0); Mean Corpuscular Hemoglobin 28.6 pg (27.0-33.0); Mean Corpuscular Volume 90.5 fL (80.0-98.0); Mean Platelet Volume 10.6 fL (9.4-12.4); Monocytes Absolute Auto 0.6 X10*3/uL (0.1-1.2); Monocytes Percent Auto 11.2 % (2-11); Neutrophils Absolute Auto 3.6 x10*3/uL (2.0-8.3); Neutrophils Percent Auto 63.3 % (45-73); Platelet Count 347 X10*3/uL (160-400); Red Blood Count 3.99 X10*6/uL (4.60-5.80); Red Cell Distribution Width 13.4 % (11.0-16.0); White Blood Count 5.7 X10*3/uL (4.8-10.8)
[2021-10-10 09:47] LABS: INTERNATIONAL NORM RATIO 1.1 (0.9-1.1); Prothrombin Time 12.1 SEC (9.9-13.0)
[2021-10-10 09:50] LABS: Partial Thromboplastin Time 33.4 SEC (24.1-38.0)
[2021-10-10] MEDS: Lidocaine HCl 1%/Epi 1:100,000 20 ML VIAL 10 ML INFILTRATI (11:42)
[2021-10-10] MEDS: Heparin Sodium,Porcine Flush 500 UNIT/5 ML SYRINGE IVFLUSH (11:48)
[2021-10-10 12:16] VITALS: BP 130/77; PULSE 64; RESP 16; TEMP 37.1; O2SAT 96
[2021-10-10 12:32] VITALS: BP 124/67; PULSE 64; RESP 16; O2SAT 98
[2021-10-10 13:00] VITALS: BP 134/86; PULSE 67; RESP 16; O2SAT 98
[2021-10-10 13:35] VITALS: BP 127/86; PULSE 64; RESP 16; O2SAT 98
== END 2021-10-10 14:15 | disposition home or self-care (01) ==
PROVIDERS: Radiology Diagnostic Radiology; PCP Internal Medicine; Visit Provider Radiology Diagnostic Radiology
DX: Z45.2 Encounter for adjustment and management of vascular access device (principal); C16.9 Malignant neoplasm of stomach, unspecified; C78.6 Secondary malignant neoplasm of retroperitoneum and peritoneum; R78.81 Bacteremia; I10 Essential (primary) hypertension; R42 Dizziness and giddiness; Z87.891 Personal history of nicotine dependence
CPT/HCPCS: 36415; 36597; 85025; 85610; 85730; 99152; 99153; C1769; C1788; J0690; J1642; J2250; J3010

== ENCOUNTER → 2021-10-14 12:52 | Outpatient (REF) | payer MEDICARE, OTHER, SELFPAY ==
--- NOTE | 2021-10-14 13:03 | CA_ITS ---
Transthoracic Echocardiogram Patient (Last, First, Middle): Jeffrey Schilling A Gender: Male Date of : 1940 Age: 81 Procedure Date: 10/14/2021 Procedure Type: Transthoracic Echocardiogram Location: OP Height: 182.88 cm Weight: 61.24 kg BSA: 1.80 m2 Heart Rate: bpm BP: 144 / 73 mmHg Information And Data Architect Analyst: RADHA Referring MD: Tiara Conroy MD Site Auditor: Louie Villasenor MD Symptoms: Pre Herceptin diagnosis is gastric carcinoma, pre chemo Study Quality: Fair ECG Rhythm: Sinus Conclusions: - 1. Normal LV systolic function with grade 1 diastolic dysfunction 2. Mild mitral regurgitation 3. Normal RV systolic pressure 4. No pericardial effusion Findings Left Ventricle Normal left ventricular size, thickness, and systolic function. The visually estimated ejection fraction is between 60-65%. Spectral Doppler is indicative of an impaired relaxation filling pattern. E/E prime ratio is <8, consistent with normal filling pressures. Evidence suggests grade I (mild) diastolic dysfunction. the calculated peak global longitudinal endocardial strain is -19.6% which is within normal limits Right Ventricle Normal right ventricular cavity size and systolic function. Atria The left atrium is likely dilated. There is no evidence of interatrial shunt. The right atrium is normal in size. There is a prominent eustachian valve. Aortic Valve There is mild thickening of the aortic valve. There is no aortic valve stenosis. There is no aortic valve regurgitation. Mitral Valve There is mild anterior and posterior mitral leaflet thickening. There is mild mitral valve regurgitation. There is no mitral valve stenosis. Pulmonic Valve The pulmonic valve is likely normal. Tricuspid Valve Normal tricuspid valve structure. There is trace tricuspid valve regurgitation. The right ventricular systolic pressure is normal. The right ventricular systolic pressure is 20 mmHg. Normal right atrial pressure. There is no evidence of pulmonary hypertension. Great Vessels All visible segments of the aorta are normal in size. The pulmonary artery was not well visualized. Moderate plaque is seen in the arch. Venous The inferior vena cava is normal in size and collapses greater than 50% with inspiration. Pericardium/Pleural There is no evidence of pericardial effusion. Prior Study Comparison No prior study available for comparison. Measurements 2D Linear Measurements IVSd: 0.82 0.6-0.9/0.6-1.0 cm LVIDd: 5.00 3.9-5.3/4.2-5.9 cm LVIDd Index: 2.78 2.4-3.2/2.2-3.1 cm/m2 LVIDs: 2.53 2.0-3.6 cm LVPWd: 0.84 0.7-1.1 cm Ao Root: 3.20 2.1-3.5 cm LA Diam: 3.10 2.7-3.8/3.0-4.0 cm LAIDs Index: 1.72 1.5-2.3 cm/m2 LV Mass: 177.36 67-162/88-224 g LV Mass Index: 98.54 43-95/49-115 g/m2 LVOT Diam: 2.20 3.0+(-)1.3 cm 2D Systolic Function EF 4C: 61.30 >55% EF 2C: 67.60 >55% EF BiP: 64.80 >55% Mitral Valve MV Pk E: 0.67 MV PK A: 0.77 MV Decel Time: 308.00 E/A: 0.90 E'Lateral: 8.81 E'Medial: 8.38 E/E' Med: 8.00 E/E' Lat: 7.60 PHT: 90.00 MVA PHT: 2.44 Decel [place]: 2.16 Aortic Valve AoV Pk Stevie: 0.97 AoV Mn Stevie: 0.80 AoV VTI: 0.26 AoV Pk Grad: 4.00 Aov Mn Grad: 3.00 SELENE Cont.VTI: 3.03 LVOT LVOT Pk Stevie: 0.92 LVOT Mn Stevie: 0.60 LVOT VTI: 0.21 LVOT Pk Grad: 3.00 LVOT Mn Grad: 2.00 LVOT Diam: 2.20 LVOT Area: 3.80 Diastolic Function MV Pk E: 0.67 MV Pk A: 0.77 E/A: 0.90 E'Medial: 8.38 E/E' Med: 8.00 E' Laterial: 8.81 E/E' Lat: 7.60 Right Ventricle TAPSE (mm): 26.00 TVS' Stevie: 13.00 Tricuspid Valve TR Pk Stevie: 2.04 TR Pk Grad: 17.00 RA Press: 3.00 RVSP: 20.00 Great Vessels Aorta Ao Root-2D: 3.20 2.0-3.7 cm Ao Asc: 3.20 2.1-3.4 cm Ao Arch: 2.70 Updated in Other Vendor System with Status of Final Louie Villasenor MD electronically signed on 10/15/2021 8:46:33 AM with status of Final
== END ==
LOC: HO.CARD 12:52
PROVIDERS: Visit Provider Internal Medicine Medical Oncology
DX: C16.9 Malignant neoplasm of stomach, unspecified (principal)
CPT/HCPCS: 93306

== ENCOUNTER 2021-10-21 08:42 | Outpatient (REF) | payer MEDICARE, OTHER, SELFPAY ==
[2021-10-21 11:31] LABS: MANUAL DIFF FLAG NO
[2021-10-21 11:44] LABS: Basophils Percent Auto 0.5 % (0-2); Eosinophils Absolute Auto 0.2 X10*3/uL (0.0-0.4); Eosinophils Percent Auto 3.7 % (0-4); Hematocrit 37.6 % (42.0-52.0); Hemoglobin 11.6 g/dl (14.0-18.0); Imm Gran Abs Auto 0.02 X10*3/uL (0.00-0.03); Imm Gran Pct Auto 0.4 % (0.0-0.4); Lymphocytes Absolute Auto 1.4 X10*3/uL (1.2-4.9); Lymphocytes Percent Auto 26.4 % (20-40); Mean Corpuscular HGB Conc 30.9 g/dl (31.0-36.0); Mean Corpuscular Volume 90.8 fL (80.0-98.0); Mean Platelet Volume 11.1 fL (9.4-12.4); Monocytes Absolute Auto 0.2 X10*3/uL (0.1-1.2); Monocytes Percent Auto 3.7 % (2-11); Neutrophils Absolute Auto 3.6 x10*3/uL (2.0-8.3); Neutrophils Percent Auto 65.3 % (45-73); Platelet Count 276 X10*3/uL (160-400); Red Blood Count 4.14 X10*6/uL (4.60-5.80); Red Cell Distribution Width 13.2 % (11.0-16.0); White Blood Count 5.5 X10*3/uL (4.8-10.8)
[2021-10-21 12:05] LABS: Alanine Aminotransferase 14 U/L (0-40); Albumin Level 3.9 g/dL (3.5-5.0); Alkaline Phosphatase 115 U/L (39-117); Anion Gap 12 (12-20); Aspartate Amino Transferase 26 U/L (5-37); Bilirubin Total 0.2 mg/dL (0.0-1.0); Blood Urea Nitrogen 16 mg/dL (9-16); Carbon Dioxide 26 mmol/L (22-29); Chloride 107 mmol/L (96-108); Estimated Glomerular Filt Rate > 60; Glucose Random 120 mg/dL (60-115); Potassium 4.1 mmol/L (3.3-5.1); Sodium 141 mmol/L (135-145); Total Protein 6.7 g/dL (6.5-8.0)
== END 2021-10-21 08:43 | disposition home or self-care (01) ==
LOC: HO.LHD 08:42
PROVIDERS: Visit Provider Internal Medicine Medical Oncology
DX: C16.9 Malignant neoplasm of stomach, unspecified (principal)
CPT/HCPCS: 36415; 80053; 85025

== ENCOUNTER 2021-10-28 | Outpatient (REF) | payer MEDICARE, OTHER, SELFPAY ==
[2021-10-28 11:17] LABS: MANUAL DIFF FLAG NO
[2021-10-28 11:22] LABS: Eosinophils Absolute Auto 0.2 X10*3/uL (0.0-0.4); Hematocrit 32.9 % (42.0-52.0); Hemoglobin 10.4 g/dl (14.0-18.0); Imm Gran Abs Auto 0.01 X10*3/uL (0.00-0.03); Imm Gran Pct Auto 0.2 % (0.0-0.4); Lymphocytes Absolute Auto 1.2 X10*3/uL (1.2-4.9); Lymphocytes Percent Auto 28.6 % (20-40); Mean Corpuscular HGB Conc 31.6 g/dl (31.0-36.0); Mean Corpuscular Volume 88.4 fL (80.0-98.0); Mean Platelet Volume 10.8 fL (9.4-12.4); Monocytes Absolute Auto 0.4 X10*3/uL (0.1-1.2); Neutrophils Absolute Auto 2.4 x10*3/uL (2.0-8.3); Neutrophils Percent Auto 56.2 % (45-73); Platelet Count 220 X10*3/uL (160-400); Red Blood Count 3.72 X10*6/uL (4.60-5.80); Red Cell Distribution Width 13.5 % (11.0-16.0); White Blood Count 4.2 X10*3/uL (4.8-10.8)
[2021-10-28 12:04] LABS: Alanine Aminotransferase 11 U/L (0-40); Albumin Level 3.8 g/dL (3.5-5.0); Alkaline Phosphatase 102 U/L (39-117); Anion Gap 10 (12-20); Aspartate Amino Transferase 19 U/L (5-37); Bilirubin Total 0.4 mg/dL (0.0-1.0); Blood Urea Nitrogen 16 mg/dL (9-16); Calcium 9.2 mg/dL (8.4-10.2); Carbon Dioxide 29 mmol/L (22-29); Chloride 108 mmol/L (96-108); Estimated Glomerular Filt Rate > 60; Glucose Random 113 mg/dL (60-115); Potassium 4.4 mmol/L (3.3-5.1); Sodium 143 mmol/L (135-145); Total Protein 6.2 g/dL (6.5-8.0)
== END 2021-10-29 07:51 | disposition home or self-care (01) ==
LOC: HO.LHD
PROVIDERS: Visit Provider Internal Medicine Medical Oncology
DX: C16.9 Malignant neoplasm of stomach, unspecified (principal)
CPT/HCPCS: 36415; 80053; 85025

== ENCOUNTER → 2021-10-31 13:21 | Outpatient (BNVA) | payer MEDICARE, OTHER, SELFPAY | PROVIDERS: PCP Internal Medicine; Referring Provider Internal Medicine; Visit Provider Surgery | DX: C16.9 Malignant neoplasm of stomach, unspecified (principal); Z98.0 Intestinal bypass and anastomosis status | CPT/HCPCS: 99212 ==

== ENCOUNTER 2021-11-04 06:56 | Outpatient (REF) | payer MEDICARE, OTHER, SELFPAY ==
[2021-11-04 10:29] LABS: Basophils Percent Auto 1.2 % (0-2); Eosinophils Absolute Auto 0.2 X10*3/uL (0.0-0.4); Eosinophils Percent Auto 7.1 % (0-4); Hematocrit 34.9 % (42.0-52.0); Hemoglobin 10.9 g/dl (14.0-18.0); Imm Gran Abs Auto 0.01 X10*3/uL (0.00-0.03); Imm Gran Pct Auto 0.4 % (0.0-0.4); Lymphocytes Absolute Auto 1.5 X10*3/uL (1.2-4.9); Lymphocytes Percent Auto 58.1 % (20-40); MANUAL DIFF FLAG SCAN; Mean Corpuscular HGB Conc 31.2 g/dl (31.0-36.0); Mean Corpuscular Hemoglobin 27.4 pg (27.0-33.0); Mean Corpuscular Volume 87.7 fL (80.0-98.0); Mean Platelet Volume 10.7 fL (9.4-12.4); Monocytes Absolute Auto 0.3 X10*3/uL (0.1-1.2); Monocytes Percent Auto 10.3 % (2-11); Neutrophils Absolute Auto 0.6 x10*3/uL (2.0-8.3); Neutrophils Percent Auto 22.9 % (45-73); Platelet Count 255 X10*3/uL (160-400); Red Blood Count 3.98 X10*6/uL (4.60-5.80); Red Cell Distribution Width 13.6 % (11.0-16.0); SCAN SMEAR FLAG 1
[2021-11-04 10:40] LABS: White Blood Count 2.5 X10*3/uL (4.8-10.8)
[2021-11-04 11:12] LABS: SLIDE REVIEW VERIFIED
[2021-11-04 11:14] LABS: Alanine Aminotransferase 14 U/L (0-40); Albumin Level 3.9 g/dL (3.5-5.0); Alkaline Phosphatase 90 U/L (39-117); Anion Gap 9 (12-20); Aspartate Amino Transferase 20 U/L (5-37); Bilirubin Total 0.4 mg/dL (0.0-1.0); Blood Urea Nitrogen 17 mg/dL (9-16); Calcium 9.2 mg/dL (8.4-10.2); Carbon Dioxide 30 mmol/L (22-29); Chloride 106 mmol/L (96-108); Estimated Glomerular Filt Rate > 60; Glucose Random 100 mg/dL (60-115); Potassium 4.4 mmol/L (3.3-5.1); Sodium 141 mmol/L (135-145); Total Protein 6.4 g/dL (6.5-8.0)
== END 2021-11-04 06:57 | disposition home or self-care (01) ==
LOC: HO.LHD 06:56
PROVIDERS: Visit Provider Internal Medicine Medical Oncology
DX: C16.9 Malignant neoplasm of stomach, unspecified (principal)
CPT/HCPCS: 36415; 80053; 85025

== ENCOUNTER 2021-11-11 08:01 | Outpatient (REF) | payer MEDICARE, OTHER, SELFPAY ==
[2021-11-11 11:34] LABS: MANUAL DIFF FLAG NO
[2021-11-11 11:46] LABS: Basophils Absolute Auto 0.1 X10*3/uL (0.0-0.2); Eosinophils Absolute Auto 0.2 X10*3/uL (0.0-0.4); Eosinophils Percent Auto 4.4 % (0-4); Hematocrit 34.4 % (42.0-52.0); Hemoglobin 10.8 g/dl (14.0-18.0); Imm Gran Abs Auto 0.01 X10*3/uL (0.00-0.03); Imm Gran Pct Auto 0.2 % (0.0-0.4); Lymphocytes Absolute Auto 1.6 X10*3/uL (1.2-4.9); Lymphocytes Percent Auto 33.3 % (20-40); Mean Corpuscular HGB Conc 31.4 g/dl (31.0-36.0); Mean Corpuscular Hemoglobin 27.6 pg (27.0-33.0); Mean Corpuscular Volume 87.8 fL (80.0-98.0); Mean Platelet Volume 10.9 fL (9.4-12.4); Monocytes Absolute Auto 0.8 X10*3/uL (0.1-1.2); Monocytes Percent Auto 16.4 % (2-11); Neutrophils Absolute Auto 2.1 x10*3/uL (2.0-8.3); Neutrophils Percent Auto 44.7 % (45-73); Platelet Count 190 X10*3/uL (160-400); Red Blood Count 3.92 X10*6/uL (4.60-5.80); Red Cell Distribution Width 14.4 % (11.0-16.0); White Blood Count 4.8 X10*3/uL (4.8-10.8)
[2021-11-11 12:00] LABS: Alanine Aminotransferase 13 U/L (0-40); Alkaline Phosphatase 97 U/L (39-117); Anion Gap 11 (12-20); Aspartate Amino Transferase 20 U/L (5-37); Bilirubin Total 0.3 mg/dL (0.0-1.0); Blood Urea Nitrogen 17 mg/dL (9-16); Calcium 9.2 mg/dL (8.4-10.2); Carbon Dioxide 27 mmol/L (22-29); Chloride 108 mmol/L (96-108); Estimated Glomerular Filt Rate > 60; Glucose Random 78 mg/dL (60-115); Potassium 4.1 mmol/L (3.3-5.1); Sodium 142 mmol/L (135-145); Total Protein 6.5 g/dL (6.5-8.0)
== END 2021-11-11 08:02 | disposition home or self-care (01) ==
LOC: HO.LHD 08:01
PROVIDERS: Visit Provider Internal Medicine Medical Oncology
DX: C16.9 Malignant neoplasm of stomach, unspecified (principal)
CPT/HCPCS: 36415; 80053; 85025

== ENCOUNTER 2021-11-18 12:35 | Outpatient (REF) | payer MEDICARE, OTHER, SELFPAY ==
[2021-11-18 11:12] LABS: Basophils Percent Auto 1.2 % (0-2); Eosinophils Absolute Auto 0.1 X10*3/uL (0.0-0.4); Eosinophils Percent Auto 3.6 % (0-4); Hematocrit 36.1 % (42.0-52.0); Hemoglobin 11.2 g/dl (14.0-18.0); Lymphocytes Absolute Auto 1.4 X10*3/uL (1.2-4.9); Lymphocytes Percent Auto 57.9 % (20-40); MANUAL DIFF FLAG SCAN; Mean Corpuscular Hemoglobin 26.9 pg (27.0-33.0); Mean Corpuscular Volume 86.6 fL (80.0-98.0); Mean Platelet Volume 10.7 fL (9.4-12.4); Monocytes Absolute Auto 0.3 X10*3/uL (0.1-1.2); Monocytes Percent Auto 10.1 % (2-11); Neutrophils Absolute Auto 0.7 x10*3/uL (2.0-8.3); Neutrophils Percent Auto 27.2 % (45-73); Platelet Count 174 X10*3/uL (160-400); Red Blood Count 4.17 X10*6/uL (4.60-5.80); Red Cell Distribution Width 14.1 % (11.0-16.0); SCAN SMEAR FLAG 1
[2021-11-18 11:16] LABS: White Blood Count 2.5 X10*3/uL (4.8-10.8)
[2021-11-18 11:52] LABS: Alanine Aminotransferase 20 U/L (0-40); Alkaline Phosphatase 92 U/L (39-117); Anion Gap 11 (12-20); Aspartate Amino Transferase 27 U/L (5-37); Bilirubin Total 0.3 mg/dL (0.0-1.0); Blood Urea Nitrogen 19 mg/dL (9-16); Calcium 9.1 mg/dL (8.4-10.2); Carbon Dioxide 27 mmol/L (22-29); Chloride 107 mmol/L (96-108); Estimated Glomerular Filt Rate > 60; Glucose Random 92 mg/dL (60-115); Potassium 4.3 mmol/L (3.3-5.1); Sodium 141 mmol/L (135-145); Total Protein 6.5 g/dL (6.5-8.0)
[2021-11-18 12:12] LABS: SLIDE REVIEW VERIFIED
== END 2021-11-18 12:36 | disposition home or self-care (01) ==
LOC: HO.LHD 12:35
PROVIDERS: Visit Provider Internal Medicine Medical Oncology
DX: C16.9 Malignant neoplasm of stomach, unspecified (principal)
CPT/HCPCS: 36415; 80053; 85025

== ENCOUNTER 2021-11-25 06:07 | Outpatient (REF) | payer MEDICARE, OTHER, SELFPAY ==
[2021-11-25 12:07] LABS: MANUAL DIFF FLAG NO
[2021-11-25 12:16] LABS: Eosinophils Absolute Auto 0.1 X10*3/uL (0.0-0.4); Hematocrit 33.7 % (42.0-52.0); Hemoglobin 10.7 g/dl (14.0-18.0); Imm Gran Abs Auto 0.01 X10*3/uL (0.00-0.03); Imm Gran Pct Auto 0.3 % (0.0-0.4); Lymphocytes Absolute Auto 1.7 X10*3/uL (1.2-4.9); Lymphocytes Percent Auto 41.3 % (20-40); Mean Corpuscular HGB Conc 31.8 g/dl (31.0-36.0); Mean Corpuscular Hemoglobin 27.9 pg (27.0-33.0); Mean Corpuscular Volume 87.8 fL (80.0-98.0); Mean Platelet Volume 10.7 fL (9.4-12.4); Monocytes Absolute Auto 0.7 X10*3/uL (0.1-1.2); Monocytes Percent Auto 17.5 % (2-11); Neutrophils Absolute Auto 1.5 x10*3/uL (2.0-8.3); Neutrophils Percent Auto 36.9 % (45-73); Platelet Count 121 X10*3/uL (160-400); Red Blood Count 3.84 X10*6/uL (4.60-5.80); Red Cell Distribution Width 15.1 % (11.0-16.0)
[2021-11-25 12:34] LABS: Alanine Aminotransferase 22 U/L (0-40); Albumin Level 3.7 g/dL (3.5-5.0); Alkaline Phosphatase 87 U/L (39-117); Anion Gap 10 (12-20); Aspartate Amino Transferase 27 U/L (5-37); Bilirubin Total 0.3 mg/dL (0.0-1.0); Blood Urea Nitrogen 17 mg/dL (9-16); Calcium 8.9 mg/dL (8.4-10.2); Carbon Dioxide 28 mmol/L (22-29); Chloride 106 mmol/L (96-108); Estimated Glomerular Filt Rate > 60; Glucose Random 73 mg/dL (60-115); Potassium 4.1 mmol/L (3.3-5.1); Sodium 140 mmol/L (135-145); Total Protein 5.5 g/dL (6.5-8.0)
== END 2021-11-25 06:08 | disposition home or self-care (01) ==
LOC: HO.LHD 06:07
PROVIDERS: Visit Provider Internal Medicine Medical Oncology
DX: C16.9 Malignant neoplasm of stomach, unspecified (principal)
CPT/HCPCS: 36415; 80053; 85025

== ENCOUNTER 2021-12-02 11:40 | Outpatient (REF) | payer MEDICARE, OTHER, SELFPAY ==
[2021-12-02 12:17] LABS: Eosinophils Absolute Auto 0.1 X10*3/uL (0.0-0.4); Eosinophils Percent Auto 4.4 % (0-4); Hemoglobin 10.9 g/dl (14.0-18.0); Lymphocytes Absolute Auto 1.2 X10*3/uL (1.2-4.9); Lymphocytes Percent Auto 60.8 % (20-40); MANUAL DIFF FLAG SCAN; Mean Corpuscular HGB Conc 31.1 g/dl (31.0-36.0); Mean Corpuscular Hemoglobin 27.1 pg (27.0-33.0); Mean Corpuscular Volume 87.1 fL (80.0-98.0); Mean Platelet Volume 11.1 fL (9.4-12.4); Monocytes Absolute Auto 0.2 X10*3/uL (0.1-1.2); Monocytes Percent Auto 11.8 % (2-11); Neutrophils Absolute Auto 0.5 x10*3/uL (2.0-8.3); Platelet Count 143 X10*3/uL (160-400); Red Blood Count 4.02 X10*6/uL (4.60-5.80); Red Cell Distribution Width 15.7 % (11.0-16.0); SCAN SMEAR FLAG 1
[2021-12-02 13:07] LABS: SLIDE REVIEW VERIFIED
[2021-12-02 13:08] LABS: Alanine Aminotransferase 29 U/L (0-40); Albumin Level 3.8 g/dL (3.5-5.0); Alkaline Phosphatase 84 U/L (39-117); Anion Gap 9 (12-20); Aspartate Amino Transferase 27 U/L (5-37); Bilirubin Total 0.3 mg/dL (0.0-1.0); Blood Urea Nitrogen 19 mg/dL (9-16); Calcium 9.2 mg/dL (8.4-10.2); Carbon Dioxide 29 mmol/L (22-29); Chloride 107 mmol/L (96-108); Estimated Glomerular Filt Rate > 60; Glucose Random 69 mg/dL (60-115); Potassium 4.3 mmol/L (3.3-5.1); Sodium 141 mmol/L (135-145); Total Protein 6.1 g/dL (6.5-8.0)
== END 2021-12-02 11:41 | disposition home or self-care (01) ==
LOC: HO.LHD 11:40
PROVIDERS: Visit Provider Internal Medicine Medical Oncology
DX: C16.9 Malignant neoplasm of stomach, unspecified (principal)
CPT/HCPCS: 36415; 80053; 85025

== ENCOUNTER 2021-12-09 | Outpatient (REF) | payer MEDICARE, OTHER, SELFPAY ==
[2021-12-09 11:56] LABS: MANUAL DIFF FLAG NO
[2021-12-09 12:03] LABS: Basophils Percent Auto 0.6 % (0-2); Eosinophils Absolute Auto 0.1 X10*3/uL (0.0-0.4); Eosinophils Percent Auto 1.7 % (0-4); Hematocrit 34.1 % (42.0-52.0); Hemoglobin 10.6 g/dl (14.0-18.0); Imm Gran Abs Auto 0.01 X10*3/uL (0.00-0.03); Imm Gran Pct Auto 0.3 % (0.0-0.4); Lymphocytes Absolute Auto 1.3 X10*3/uL (1.2-4.9); Lymphocytes Percent Auto 37.6 % (20-40); Mean Corpuscular HGB Conc 31.1 g/dl (31.0-36.0); Mean Platelet Volume 11.2 fL (9.4-12.4); Monocytes Absolute Auto 0.6 X10*3/uL (0.1-1.2); Monocytes Percent Auto 17.9 % (2-11); Neutrophils Absolute Auto 1.5 x10*3/uL (2.0-8.3); Neutrophils Percent Auto 41.9 % (45-73); Platelet Count 118 X10*3/uL (160-400); Red Blood Count 3.92 X10*6/uL (4.60-5.80); White Blood Count 3.5 X10*3/uL (4.8-10.8)
[2021-12-09 12:18] LABS: Alanine Aminotransferase 41 U/L (0-40); Alkaline Phosphatase 96 U/L (39-117); Anion Gap 11 (12-20); Aspartate Amino Transferase 38 U/L (5-37); Bilirubin Total 0.5 mg/dL (0.0-1.0); Blood Urea Nitrogen 16 mg/dL (9-16); Calcium 9.4 mg/dL (8.4-10.2); Carbon Dioxide 27 mmol/L (22-29); Chloride 108 mmol/L (96-108); Estimated Glomerular Filt Rate > 60; Glucose Random 91 mg/dL (60-115); Potassium 4.6 mmol/L (3.3-5.1); Sodium 141 mmol/L (135-145); Total Protein 6.4 g/dL (6.5-8.0)
== END 2021-12-09 00:01 ==
LOC: HO.LHD
PROVIDERS: Visit Provider Internal Medicine Medical Oncology
DX: C16.9 Malignant neoplasm of stomach, unspecified (principal)
CPT/HCPCS: 36415; 80053; 85025

== ENCOUNTER 2021-12-16 11:29 | Outpatient (REF) | payer MEDICARE, OTHER, SELFPAY ==
[2021-12-16 10:31] LABS: MANUAL DIFF FLAG NO
[2021-12-16 10:34] LABS: Basophils Percent Auto 1.1 % (0-2); Eosinophils Absolute Auto 0.1 X10*3/uL (0.0-0.4); Eosinophils Percent Auto 3.7 % (0-4); Hematocrit 33.6 % (42.0-52.0); Hemoglobin 10.6 g/dl (14.0-18.0); Imm Gran Abs Auto 0.01 X10*3/uL (0.00-0.03); Imm Gran Pct Auto 0.5 % (0.0-0.4); Lymphocytes Absolute Auto 1.2 X10*3/uL (1.2-4.9); Lymphocytes Percent Auto 65.6 % (20-40); Mean Corpuscular HGB Conc 31.5 g/dl (31.0-36.0); Mean Corpuscular Hemoglobin 27.4 pg (27.0-33.0); Mean Corpuscular Volume 86.8 fL (80.0-98.0); Monocytes Absolute Auto 0.2 X10*3/uL (0.1-1.2); Monocytes Percent Auto 11.1 % (2-11); Neutrophils Absolute Auto 0.3 x10*3/uL (2.0-8.3); Platelet Count 117 X10*3/uL (160-400); Red Blood Count 3.87 X10*6/uL (4.60-5.80); Red Cell Distribution Width 17.1 % (11.0-16.0); SCAN SMEAR FLAG 1
[2021-12-16 10:52] LABS: White Blood Count 1.9 X10*3/uL (4.8-10.8)
[2021-12-16 11:31] LABS: Alanine Aminotransferase 39 U/L (0-40); Albumin Level 3.7 g/dL (3.5-5.0); Alkaline Phosphatase 92 U/L (39-117); Anion Gap 9 (12-20); Aspartate Amino Transferase 34 U/L (5-37); Bilirubin Total 0.7 mg/dL (0.0-1.0); Blood Urea Nitrogen 17 mg/dL (9-16); Calcium 9.3 mg/dL (8.4-10.2); Carbon Dioxide 29 mmol/L (22-29); Chloride 106 mmol/L (96-108); Estimated Glomerular Filt Rate > 60; Glucose Random 109 mg/dL (60-115); Potassium 4.3 mmol/L (3.3-5.1); Sodium 140 mmol/L (135-145)
== END 2021-12-16 11:30 | disposition home or self-care (01) ==
LOC: HO.LHD 11:29
PROVIDERS: Visit Provider Internal Medicine Medical Oncology
DX: C16.9 Malignant neoplasm of stomach, unspecified (principal)
CPT/HCPCS: 36415; 80053; 85025

== ENCOUNTER 2021-12-23 08:59 | Outpatient (REF) | payer MEDICARE, OTHER, SELFPAY ==
[2021-12-23 13:05] LABS: Basophils Percent Auto 0.4 % (0-2); Eosinophils Absolute Auto 0.1 X10*3/uL (0.0-0.4); Eosinophils Percent Auto 2.7 % (0-4); Hematocrit 31.5 % (42.0-52.0); Hemoglobin 9.8 g/dl (14.0-18.0); Imm Gran Abs Auto 0.01 X10*3/uL (0.00-0.03); Imm Gran Pct Auto 0.4 % (0.0-0.4); Lymphocytes Absolute Auto 1.1 X10*3/uL (1.2-4.9); Lymphocytes Percent Auto 43.8 % (20-40); Mean Corpuscular HGB Conc 31.1 g/dl (31.0-36.0); Mean Corpuscular Hemoglobin 27.5 pg (27.0-33.0); Mean Corpuscular Volume 88.5 fL (80.0-98.0); Mean Platelet Volume 10.8 fL (9.4-12.4); Monocytes Absolute Auto 0.6 X10*3/uL (0.1-1.2); Monocytes Percent Auto 23.1 % (2-11); Neutrophils Absolute Auto 0.8 x10*3/uL (2.0-8.3); Neutrophils Percent Auto 29.6 % (45-73); Platelet Count 85 X10*3/uL (160-400); Red Blood Count 3.56 X10*6/uL (4.60-5.80); Red Cell Distribution Width 18.2 % (11.0-16.0); White Blood Count 2.6 X10*3/uL (4.8-10.8)
[2021-12-23 13:29] LABS: Alanine Aminotransferase 25 U/L (0-40); Albumin Level 3.7 g/dL (3.5-5.0); Alkaline Phosphatase 97 U/L (39-117); Anion Gap 9 (12-20); Aspartate Amino Transferase 28 U/L (5-37); Bilirubin Total 0.4 mg/dL (0.0-1.0); Blood Urea Nitrogen 15 mg/dL (9-16); Calcium 9.1 mg/dL (8.4-10.2); Carbon Dioxide 28 mmol/L (22-29); Chloride 108 mmol/L (96-108); Estimated Glomerular Filt Rate > 60; Glucose Random 93 mg/dL (60-115); Potassium 3.9 mmol/L (3.3-5.1); Sodium 141 mmol/L (135-145)
== END 2021-12-23 09:00 | disposition home or self-care (01) ==
LOC: HO.LHD 08:59
PROVIDERS: Visit Provider Internal Medicine Medical Oncology
DX: C16.9 Malignant neoplasm of stomach, unspecified (principal)
CPT/HCPCS: 36415; 80053; 85025

== ENCOUNTER 2021-12-30 11:57 | Outpatient (REF) | payer MEDICARE, OTHER, SELFPAY ==
[2021-12-30 10:32] LABS: Basophils Percent Auto 1.2 % (0-2); Eosinophils Absolute Auto 0.1 X10*3/uL (0.0-0.4); Eosinophils Percent Auto 3.2 % (0-4); Hematocrit 35.1 % (42.0-52.0); Hemoglobin 10.9 g/dl (14.0-18.0); Imm Gran Abs Auto 0.01 X10*3/uL (0.00-0.03); Imm Gran Pct Auto 0.4 % (0.0-0.4); Lymphocytes Absolute Auto 1.3 X10*3/uL (1.2-4.9); Lymphocytes Percent Auto 51.2 % (20-40); MANUAL DIFF FLAG SCAN; Mean Corpuscular HGB Conc 31.1 g/dl (31.0-36.0); Mean Corpuscular Hemoglobin 28.1 pg (27.0-33.0); Mean Corpuscular Volume 90.5 fL (80.0-98.0); Mean Platelet Volume 11.6 fL (9.4-12.4); Monocytes Absolute Auto 0.7 X10*3/uL (0.1-1.2); Monocytes Percent Auto 26.6 % (2-11); Neutrophils Absolute Auto 0.4 x10*3/uL (2.0-8.3); Neutrophils Percent Auto 17.4 % (45-73); Platelet Count 171 X10*3/uL (160-400); Red Blood Count 3.88 X10*6/uL (4.60-5.80); Red Cell Distribution Width 19.5 % (11.0-16.0); SCAN SMEAR FLAG 1; White Blood Count 2.5 X10*3/uL (4.8-10.8)
[2021-12-30 10:48] LABS: Alanine Aminotransferase 20 U/L (0-40); Albumin Level 3.8 g/dL (3.5-5.0); Alkaline Phosphatase 102 U/L (39-117); Anion Gap 12 (12-20); Aspartate Amino Transferase 27 U/L (5-37); Bilirubin Total 0.2 mg/dL (0.0-1.0); Blood Urea Nitrogen 15 mg/dL (9-16); Calcium 9.4 mg/dL (8.4-10.2); Carbon Dioxide 27 mmol/L (22-29); Chloride 108 mmol/L (96-108); Estimated Glomerular Filt Rate > 60; Glucose Random 122 mg/dL (60-115); Potassium 4.4 mmol/L (3.3-5.1); Sodium 143 mmol/L (135-145); Total Protein 6.3 g/dL (6.5-8.0)
[2021-12-30 10:53] LABS: SLIDE REVIEW VERIFIED
== END 2021-12-30 11:58 | disposition home or self-care (01) ==
LOC: HO.LHD 11:57
PROVIDERS: Visit Provider Internal Medicine Medical Oncology
DX: C16.9 Malignant neoplasm of stomach, unspecified (principal)
CPT/HCPCS: 36415; 80053; 85025

== ENCOUNTER 2022-01-06 07:10 | Outpatient (REF) | payer MEDICARE, MEDICAID, SELFPAY ==
[2022-01-06 11:51] LABS: Mean Corpuscular Volume 90.7 fL (80.0-98.0); PLT CLUMP 1
[2022-01-06 11:53] LABS: Hematocrit 32.2 % (42.0-52.0); Hemoglobin 10.1 g/dl (14.0-18.0); Mean Corpuscular HGB Conc 31.4 g/dl (31.0-36.0); Mean Corpuscular Hemoglobin 28.5 pg (27.0-33.0); Mean Platelet Volume 12.2 fL (9.4-12.4); Red Blood Count 3.55 X10*6/uL (4.60-5.80); Red Cell Distribution Width 19.1 % (11.0-16.0)
[2022-01-06 11:57] LABS: WBC ABN SCTR FOR CBC 1
[2022-01-06 11:58] LABS: Platelet Count 78 X10*3/uL (160-400); White Blood Count 10.7 X10*3/uL (4.8-10.8)
[2022-01-06 12:08] LABS: Alanine Aminotransferase 14 U/L (0-40); Albumin Level 3.6 g/dL (3.5-5.0); Alkaline Phosphatase 135 U/L (39-117); Anion Gap 11 (12-20); Aspartate Amino Transferase 20 U/L (5-37); Bilirubin Total 0.9 mg/dL (0.0-1.0); Blood Urea Nitrogen 21 mg/dL (9-16); Calcium 9.2 mg/dL (8.4-10.2); Carbon Dioxide 28 mmol/L (22-29); Chloride 105 mmol/L (96-108); Estimated Glomerular Filt Rate > 60; Glucose Random 84 mg/dL (60-115); Potassium 4.2 mmol/L (3.3-5.1); Sodium 140 mmol/L (135-145); Total Protein 5.7 g/dL (6.5-8.0)
[2022-01-06 12:43] LABS: Band Neutrophils Percent 4 % (3-5); Eosinophils Absolute Manual 0.1 X10*3/uL (0.0-0.4); Eosinophils Percent Manual 1 % (0-4); Lymphocytes Absolute Manual 1.7 X10*3/uL (1.2-4.9); Lymphocytes Percent Manual 16 % (20-40); Monocytes Absolute Manual 0.1 X10*3/uL (0.1-1.2); Monocytes Percent Manual 1 % (2-11); Neutrophils Absolute Manual 8.8 X10*3/uL (2.0-8.3); Neutrophils Percent Manual 78 % (45-73)
[2022-01-06 12:45] LABS: Macrocytosis 1+ (5-14) /OIF; Platelet Estimate DECREASED (NORMAL); RBC Morphology NOTED
[2022-01-06 12:46] LABS: Acanthocytes 1+ (0-2) /OIF; Burr Cells 1+ (0-2) /OIF; Large Platelet PRESENT; Ovalocytes 1+ (5-14) /OIF; Platelet Morphology Comment NOTED; Tear Drop Cells 1+ (0-2) /OIF
== END 2022-01-06 07:11 | disposition home or self-care (01) ==
LOC: HO.LHD 07:10
PROVIDERS: Visit Provider Internal Medicine Medical Oncology
DX: C16.9 Malignant neoplasm of stomach, unspecified (principal)
CPT/HCPCS: 36415; 80053; 85007; 85025; 85027

== ENCOUNTER 2022-01-13 14:54 | Outpatient (REF) | payer MEDICARE, MEDICAID, SELFPAY ==
[2022-01-13 11:20] LABS: Hematocrit 34.2 % (42.0-52.0); Hemoglobin 10.6 g/dl (14.0-18.0); Mean Corpuscular Hemoglobin 28.6 pg (27.0-33.0); Mean Corpuscular Volume 92.4 fL (80.0-98.0); NRBC Pct Auto 0.7 /100WBC (0.0-0.2); Platelet Count 84 X10*3/uL (160-400); Red Cell Distribution Width 19.3 % (11.0-16.0); WBC ABN SCTR FOR CBC 1; White Blood Count 10.4 X10*3/uL (4.8-10.8)
[2022-01-13 11:55] LABS: Alanine Aminotransferase 16 U/L (0-40); Albumin Level 3.8 g/dL (3.5-5.0); Alkaline Phosphatase 141 U/L (39-117); Anion Gap 11 (12-20); Aspartate Amino Transferase 27 U/L (5-37); Bilirubin Total 0.5 mg/dL (0.0-1.0); Blood Urea Nitrogen 16 mg/dL (9-16); Calcium 9.1 mg/dL (8.4-10.2); Carbon Dioxide 28 mmol/L (22-29); Chloride 108 mmol/L (96-108); Estimated Glomerular Filt Rate > 60; Glucose Random 64 mg/dL (60-115); Potassium 3.6 mmol/L (3.3-5.1); Sodium 143 mmol/L (135-145); Total Protein 6.3 g/dL (6.5-8.0)
[2022-01-13 12:14] LABS: Band Neutrophils Percent 18 % (3-5); Basophils Abs Manual 0.1 X10*3/uL (0.0-0.2); Basophils Percent Manual 1 % (0-2); Eosinophils Absolute Manual 0.4 X10*3/uL (0.0-0.4); Eosinophils Percent Manual 4 % (0-4); Lymphocytes Absolute Manual 1.8 X10*3/uL (1.2-4.9); Lymphocytes Percent Manual 17 % (20-40); Metamyelocytes Absolute 0.1 X10*3/uL; Metamyelocytes Percent 1 %; Monocytes Absolute Manual 0.6 X10*3/uL (0.1-1.2); Monocytes Percent Manual 6 % (2-11); Myelocytes Absolute 0.2 X10*/uL; Myelocytes Percent 2 %; Neutrophils Absolute Manual 7.2 X10*3/uL (2.0-8.3); Neutrophils Percent Manual 51 % (45-73); Nucleated Red Blood Cells 1 /100WBC (0-0)
[2022-01-13 12:16] LABS: Ovalocytes 1+ (5-14) /OIF; RBC Morphology NOTED
[2022-01-13 12:17] LABS: Burr Cells 1+ (0-2) /OIF; Polychromasia 1+ (0-2) /OIF
[2022-01-13 12:23] LABS: Platelet Estimate DECREASED (NORMAL); Platelet Morphology Comment NORM
== END 2022-01-13 14:55 | disposition home or self-care (01) ==
LOC: HO.LHD 14:54
PROVIDERS: Visit Provider Internal Medicine Medical Oncology
DX: C16.9 Malignant neoplasm of stomach, unspecified (principal)
CPT/HCPCS: 36415; 80053; 85007; 85027

== ENCOUNTER 2022-01-20 08:06 | Outpatient (REF) | payer MEDICARE, MEDICAID, SELFPAY ==
[2022-01-20 11:08] LABS: Hematocrit 30.9 % (42.0-52.0); Hemoglobin 9.6 g/dl (14.0-18.0); Mean Corpuscular HGB Conc 31.1 g/dl (31.0-36.0); Mean Corpuscular Hemoglobin 28.7 pg (27.0-33.0); Mean Corpuscular Volume 92.2 fL (80.0-98.0); Mean Platelet Volume 11.4 fL (9.4-12.4); Red Blood Count 3.35 X10*6/uL (4.60-5.80); Red Cell Distribution Width 19.2 % (11.0-16.0); White Blood Count 7.1 X10*3/uL (4.8-10.8)
[2022-01-20 11:11] LABS: Platelet Count 74 X10*3/uL (160-400)
[2022-01-20 11:38] LABS: Alanine Aminotransferase 19 U/L (0-40); Albumin Level 3.5 g/dL (3.5-5.0); Alkaline Phosphatase 170 U/L (39-117); Anion Gap 8 (12-20); Aspartate Amino Transferase 25 U/L (5-37); Bilirubin Total 0.8 mg/dL (0.0-1.0); Blood Urea Nitrogen 21 mg/dL (9-16); Calcium 8.8 mg/dL (8.4-10.2); Carbon Dioxide 27 mmol/L (22-29); Chloride 107 mmol/L (96-108); Estimated Glomerular Filt Rate > 60; Glucose Random 87 mg/dL (60-115); Potassium 4.3 mmol/L (3.3-5.1); Sodium 138 mmol/L (135-145); Total Protein 5.7 g/dL (6.5-8.0)
[2022-01-20 12:06] LABS: Band Neutrophils Percent 11 % (3-5); Basophils Abs Manual 0.1 X10*3/uL (0.0-0.2); Basophils Percent Manual 1 % (0-2); Eosinophils Absolute Manual 0.1 X10*3/uL (0.0-0.4); Eosinophils Percent Manual 1 % (0-4); Lymphocytes Absolute Manual 0.8 X10*3/uL (1.2-4.9); Lymphocytes Percent Manual 11 % (20-40); Metamyelocytes Absolute 0.1 X10*3/uL; Metamyelocytes Percent 1 %; Monocytes Absolute Manual 0.4 X10*3/uL (0.1-1.2); Monocytes Percent Manual 5 % (2-11); Neutrophils Absolute Manual 5.8 X10*3/uL (2.0-8.3); Neutrophils Percent Manual 70 % (45-73)
[2022-01-20 12:07] LABS: RBC Morphology NOTED
[2022-01-20 12:08] LABS: Acanthocytes 2+ (3-5) /OIF; Ovalocytes 1+ (5-14) /OIF; Platelet Estimate DECREASED (NORMAL); Platelet Morphology Comment NORMAL; Schistocytes 1+ (0-2) /OIF
[2022-01-20 12:09] LABS: Burr Cells 1+ (0-2) /OIF; Polychromasia 1+ (0-2) /OIF
== END 2022-01-20 08:07 | disposition home or self-care (01) ==
LOC: HO.LHD 08:06
PROVIDERS: Visit Provider Internal Medicine Medical Oncology
DX: C16.9 Malignant neoplasm of stomach, unspecified (principal)
CPT/HCPCS: 36415; 80053; 85007; 85027

== ENCOUNTER 2022-01-27 14:25 | Outpatient (REF) | payer MEDICARE, MEDICAID, SELFPAY ==
[2022-01-27 10:17] LABS: Hematocrit 30.3 % (42.0-52.0); Hemoglobin 9.7 g/dl (14.0-18.0); Mean Corpuscular Hemoglobin 29.6 pg (27.0-33.0); Mean Corpuscular Volume 92.4 fL (80.0-98.0); Mean Platelet Volume 11.6 fL (9.4-12.4); NRBC Pct Auto 0.9 /100WBC (0.0-0.2); Red Blood Count 3.28 X10*6/uL (4.60-5.80); Red Cell Distribution Width 20.5 % (11.0-16.0)
[2022-01-27 10:19] LABS: Platelet Count 98 X10*3/uL (160-400); WBC ABN SCTR FOR CBC 1
[2022-01-27 10:44] LABS: Alanine Aminotransferase 24 U/L (0-40); Albumin Level 3.4 g/dL (3.5-5.0); Alkaline Phosphatase 149 U/L (39-117); Anion Gap 11 (12-20); Aspartate Amino Transferase 31 U/L (5-37); Bilirubin Total 0.2 mg/dL (0.0-1.0); Blood Urea Nitrogen 15 mg/dL (9-16); Carbon Dioxide 27 mmol/L (22-29); Chloride 107 mmol/L (96-108); Estimated Glomerular Filt Rate > 60; Glucose Random 118 mg/dL (60-115); Potassium 3.7 mmol/L (3.3-5.1); Sodium 141 mmol/L (135-145); Total Protein 5.6 g/dL (6.5-8.0)
[2022-01-27 10:50] LABS: Atypical Lymphs Percent Manual 2 % (0-6); Band Neutrophils Percent 24 % (3-5); Lymphocytes Percent Manual 15 % (20-40); Metamyelocytes Percent 5 %; Monocytes Percent Manual 3 % (2-11); Myelocytes Percent 1 %; Neutrophils Percent Manual 50 % (45-73); Nucleated Red Blood Cells 1 /100WBC (0-0)
[2022-01-27 10:51] LABS: Macrocytosis 1+ (5-14) /OIF; Platelet Estimate DECREASED (NORMAL); RBC Morphology NOTED
[2022-01-27 10:52] LABS: Acanthocytes 1+ (0-2) /OIF; Atypical Lymph Absolute Manual 0.4 x10*3/uL; Burr Cells 1+ (0-2) /OIF; Hypochromasia 1+ (5-14) /OIF; Lymphocytes Absolute Manual 2.7 X10*3/uL (1.2-4.9); Metamyelocytes Absolute 0.9 X10*3/uL; Monocytes Absolute Manual 0.5 X10*3/uL (0.1-1.2); Myelocytes Absolute 0.2 X10*/uL; Neutrophils Absolute Manual 13.2 X10*3/uL (2.0-8.3); Ovalocytes 1+ (5-14) /OIF; Platelet Morphology Comment NORMAL; Polychromasia 1+ (0-2) /OIF; Schistocytes 1+ (0-2) /OIF; Tear Drop Cells 1+ (0-2) /OIF; White Blood Count 17.8 X10*3/uL (4.8-10.8)
== END 2022-01-27 14:26 | disposition home or self-care (01) ==
LOC: HO.LHD 14:25
PROVIDERS: Visit Provider Internal Medicine Medical Oncology
DX: C16.9 Malignant neoplasm of stomach, unspecified (principal)
CPT/HCPCS: 36415; 80053; 85007; 85027

== ENCOUNTER 2022-02-03 05:37 | Outpatient (REF) | payer MEDICARE, MEDICAID, SELFPAY ==
[2022-02-03 10:32] LABS: Mean Corpuscular HGB Conc 32.1 g/dl (31.0-36.0); PLT CLUMP 1
[2022-02-03 10:34] LABS: Hematocrit 27.4 % (42.0-52.0); Hemoglobin 8.8 g/dl (14.0-18.0); Mean Corpuscular Hemoglobin 29.7 pg (27.0-33.0); Mean Corpuscular Volume 92.6 fL (80.0-98.0); Mean Platelet Volume 11.3 fL (9.4-12.4); Red Blood Count 2.96 X10*6/uL (4.60-5.80); Red Cell Distribution Width 20.8 % (11.0-16.0)
[2022-02-03 10:36] LABS: White Blood Count 17.1 X10*3/uL (4.8-10.8)
[2022-02-03 10:37] LABS: Platelet Count 87 X10*3/uL (160-400)
[2022-02-03 11:14] LABS: Band Neutrophils Percent 3 % (3-5); Eosinophils Absolute Manual 0.2 X10*3/uL (0.0-0.4); Eosinophils Percent Manual 1 % (0-4); Lymphocytes Absolute Manual 1.5 X10*3/uL (1.2-4.9); Lymphocytes Percent Manual 9 % (20-40); Monocytes Absolute Manual 0.5 X10*3/uL (0.1-1.2); Monocytes Percent Manual 3 % (2-11); Neutrophils Absolute Manual 14.9 X10*3/uL (2.0-8.3); Neutrophils Percent Manual 84 % (45-73)
[2022-02-03 11:15] LABS: Dohle Bodies PRESENT; Large Platelet PRESENT; Macrocytosis 1+ (5-14) /OIF; Microcytosis 1+ (5-14) /OIF; Platelet Estimate DECREASED (NORMAL); Platelet Morphology Comment NOTED; RBC Morphology NOTED
[2022-02-03 11:16] LABS: Schistocytes 1+ (0-2) /OIF; Tear Drop Cells 1+ (0-2) /OIF
[2022-02-03 11:18] LABS: Alanine Aminotransferase 23 U/L (0-40); Albumin Level 3.3 g/dL (3.5-5.0); Alkaline Phosphatase 210 U/L (39-117); Anion Gap 10 (12-20); Aspartate Amino Transferase 26 U/L (5-37); Bilirubin Total 0.3 mg/dL (0.0-1.0); Blood Urea Nitrogen 19 mg/dL (9-16); Calcium 8.7 mg/dL (8.4-10.2); Carbon Dioxide 27 mmol/L (22-29); Chloride 107 mmol/L (96-108); Estimated Glomerular Filt Rate > 60; Glucose Random 76 mg/dL (60-115); Potassium 4.2 mmol/L (3.3-5.1); Sodium 140 mmol/L (135-145); Total Protein 5.5 g/dL (6.5-8.0)
== END 2022-02-03 05:38 | disposition home or self-care (01) ==
LOC: HO.LHD 05:37
PROVIDERS: Visit Provider Internal Medicine Medical Oncology
DX: C16.9 Malignant neoplasm of stomach, unspecified (principal)
CPT/HCPCS: 36415; 80053; 85007; 85027

== ENCOUNTER → 2022-02-06 11:13 | Outpatient (REF) | payer MEDICARE, MEDICAID, SELFPAY ==
--- NOTE | 2022-02-06 11:17 | CA_ITS ---
Transthoracic Echocardiogram Patient (Last, First, Middle): Jeffrey Schilling A Gender: Male Date of : 1940 Age: 81 Procedure Date: 02/06/2022 Procedure Type: Transthoracic Echocardiogram Location: OP Height: 185.42 cm Weight: 61.69 kg BSA: 1.83 m2 Heart Rate: bpm BP: 124 / 68 mmHg Cat Driver: SB Referring MD: Tiara Conroy MD Symptoms: Gastric cancer on chemo, to determine EF. Study Quality: Adequate ECG Rhythm: Sinus, PVCs Conclusions: - The left ventricular systolic function is normal. The calculated ejection fraction is 62% by biplane method. Findings Left Ventricle Normal left ventricular cavity size. There is normal left ventricular wall thickness. The left ventricular systolic function is normal. The calculated ejection fraction is 62% by biplane method. There is no evidence of regional wall motion abnormalities. LV peak GLS -19.6% (normal). Right Ventricle Normal right ventricular cavity size and systolic function. Mitral Valve There is mild anterior mitral leaflet thickening. There is mild mitral valve regurgitation. Tricuspid Valve There is mild tricuspid valve regurgitation. Venous The inferior vena cava is mildly dilated and collapses greater than 50% with inspiration. Prior Study Comparison No significant change compared to prior study dated: 10/14/2021. Measurements 2D Linear Measurements IVSd: 0.79 0.6-0.9/0.6-1.0 cm LVIDd: 5.27 3.9-5.3/4.2-5.9 cm LVIDd Index: 2.88 2.4-3.2/2.2-3.1 cm/m2 LVIDs: 3.25 2.0-3.6 cm LVPWd: 0.52 0.7-1.1 cm LV Mass: 144.88 67-162/88-224 g LV Mass Index: 79.17 43-95/49-115 g/m2 2D Systolic Function EF 4C: 66.20 >55% EF 2C: 60.30 >55% EF BiP: 62.20 >55% Mitral Valve MV Pk E: 0.87 MV PK A: 0.37 MV Decel Time: 188.00 E/A: 2.30 E'Lateral: 11.10 E'Medial: 6.96 E/E' Med: 12.60 E/E' Lat: 7.90 PHT: 55.00 MVA PHT: 4.00 Decel Dillon: 4.66 Diastolic Function MV Pk E: 0.87 MV Pk A: 0.37 E/A: 2.30 E'Medial: 6.96 E/E' Med: 12.60 E' Laterial: 11.10 E/E' Lat: 7.90 Right Ventricle TAPSE (mm): 25.70 TVS' Stevie: 17.70 Tricuspid Valve TR Pk Stevie: 2.25 TR Pk Grad: 20.00 RA Press: 8.00 RVSP: 28.00 Updated in Other Vendor System with Status of Final Ahmet Kruse MD electronically signed on 02/08/2022 11:35:52 AM with status of Final
== END ==
LOC: HO.CARD 11:13
PROVIDERS: PCP Internal Medicine; Visit Provider Internal Medicine Medical Oncology
DX: C16.9 Malignant neoplasm of stomach, unspecified (principal); Z92.21 Personal history of antineoplastic chemotherapy
CPT/HCPCS: 93308; 93356

== ENCOUNTER 2022-02-10 13:19 | Outpatient (REF) | payer MEDICARE, MEDICAID, SELFPAY ==
[2022-02-10 10:26] LABS: Hematocrit 30.8 % (42.0-52.0); Hemoglobin 9.5 g/dl (14.0-18.0); Mean Corpuscular HGB Conc 30.8 g/dl (31.0-36.0); Mean Corpuscular Hemoglobin 29.9 pg (27.0-33.0); Mean Corpuscular Volume 96.9 fL (80.0-98.0); NRBC Pct Auto 0.6 /100WBC (0.0-0.2); Platelet Count 103 X10*3/uL (160-400); Red Blood Count 3.18 X10*6/uL (4.60-5.80); Red Cell Distribution Width 22.4 % (11.0-16.0)
[2022-02-10 10:27] LABS: WBC ABN SCTR FOR CBC 1
[2022-02-10 10:54] LABS: Alanine Aminotransferase 24 U/L (0-40); Albumin Level 3.5 g/dL (3.5-5.0); Alkaline Phosphatase 177 U/L (39-117); Anion Gap 14 (12-20); Aspartate Amino Transferase 29 U/L (5-37); Bilirubin Total < 0.2 mg/dL (0.0-1.0); Blood Urea Nitrogen 11 mg/dL (9-16); Calcium 8.9 mg/dL (8.4-10.2); Carbon Dioxide 27 mmol/L (22-29); Chloride 105 mmol/L (96-108); Estimated Glomerular Filt Rate > 60; Glucose Random 119 mg/dL (60-115); Potassium 3.8 mmol/L (3.3-5.1); Sodium 142 mmol/L (135-145); Total Protein 5.8 g/dL (6.5-8.0)
[2022-02-10 10:57] LABS: Band Neutrophils Percent 19 % (3-5); Eosinophils Percent Manual 1 % (0-4); Lymphocytes Percent Manual 15 % (20-40); Metamyelocytes Percent 3 %; Monocytes Percent Manual 10 % (2-11); Myelocytes Percent 1 %; Neutrophils Percent Manual 51 % (45-73)
[2022-02-10 11:00] LABS: Acanthocytes 1+ (0-2) /OIF; Large Platelet PRESENT; Macrocytosis 1+ (5-14) /OIF; Microcytosis 2+ (15-30) /OIF; Platelet Estimate DECREASED (NORMAL); Platelet Morphology Comment NOTED; RBC Morphology NOTED
[2022-02-10 11:01] LABS: Burr Cells 1+ (0-2) /OIF; Ovalocytes 1+ (5-14) /OIF; Polychromasia 1+ (0-2) /OIF; Schistocytes 1+ (0-2) /OIF; Tear Drop Cells 1+ (0-2) /OIF
[2022-02-10 11:03] LABS: Eosinophils Absolute Manual 0.1 X10*3/uL (0.0-0.4); Lymphocytes Absolute Manual 1.9 X10*3/uL (1.2-4.9); Metamyelocytes Absolute 0.4 X10*3/uL; Monocytes Absolute Manual 1.3 X10*3/uL (0.1-1.2); Myelocytes Absolute 0.1 X10*/uL; Neutrophils Absolute Manual 8.9 X10*3/uL (2.0-8.3); White Blood Count 12.7 X10*3/uL (4.8-10.8)
== END 2022-02-10 13:20 | disposition home or self-care (01) ==
LOC: HO.LHD 13:19
PROVIDERS: Visit Provider Internal Medicine Medical Oncology
DX: C16.9 Malignant neoplasm of stomach, unspecified (principal)
CPT/HCPCS: 36415; 80053; 85007; 85027

== ENCOUNTER 2022-02-18 | Outpatient (REF) | payer MEDICARE, MEDICAID, SELFPAY ==
[2022-02-18 13:27] LABS: Hematocrit 28.3 % (42.0-52.0); Mean Corpuscular Hemoglobin 30.9 pg (27.0-33.0); Mean Corpuscular Volume 97.3 fL (80.0-98.0); Mean Platelet Volume 11.8 fL (9.4-12.4); NRBC Pct Auto 0.2 /100WBC (0.0-0.2); Red Blood Count 2.91 X10*6/uL (4.60-5.80); Red Cell Distribution Width 21.7 % (11.0-16.0); White Blood Count 8.6 X10*3/uL (4.8-10.8)
[2022-02-18 13:28] LABS: Platelet Count 83 X10*3/uL (160-400)
[2022-02-18 13:29] LABS: Mean Corpuscular HGB Conc 31.5 g/dl (31.0-36.0)
[2022-02-18 13:36] LABS: Alanine Aminotransferase 23 U/L (0-40); Albumin Level 3.5 g/dL (3.5-5.0); Alkaline Phosphatase 253 U/L (39-117); Anion Gap 13 (12-20); Aspartate Amino Transferase 28 U/L (5-37); Bilirubin Total 0.9 mg/dL (0.0-1.0); Blood Urea Nitrogen 21 mg/dL (9-16); Carbon Dioxide 23 mmol/L (22-29); Chloride 108 mmol/L (96-108); Estimated Glomerular Filt Rate > 60; Glucose Random 63 mg/dL (60-115); Potassium 4.1 mmol/L (3.3-5.1); Sodium 140 mmol/L (135-145); Total Protein 5.8 g/dL (6.5-8.0)
[2022-02-18 14:10] LABS: Band Neutrophils Percent 18 % (3-5); Basophils Abs Manual 0.2 X10*3/uL (0.0-0.2); Basophils Percent Manual 2 % (0-2); Eosinophils Absolute Manual 0.1 X10*3/uL (0.0-0.4); Eosinophils Percent Manual 1 % (0-4); Lymphocytes Absolute Manual 1.2 X10*3/uL (1.2-4.9); Lymphocytes Percent Manual 14 % (20-40); Monocytes Absolute Manual 0.2 X10*3/uL (0.1-1.2); Monocytes Percent Manual 2 % (2-11)
[2022-02-18 14:13] LABS: Acanthocytes 1+ (0-2) /OIF; Burr Cells 1+ (0-2) /OIF; Macrocytosis 1+ (5-14) /OIF; Microcytosis 1+ (5-14) /OIF; Ovalocytes 1+ (5-14) /OIF; Platelet Estimate DECREASED (NORMAL); Platelet Morphology Comment NORMAL; Polychromasia 1+ (0-2) /OIF; RBC Morphology NOTED; Schistocytes 1+ (0-2) /OIF; Tear Drop Cells 1+ (0-2) /OIF
[2022-02-18 14:15] LABS: Neutrophils Percent Manual 63 % (45-73)
== END 2022-02-18 00:01 ==
LOC: HO.LHD
PROVIDERS: Visit Provider Internal Medicine Medical Oncology
DX: C16.9 Malignant neoplasm of stomach, unspecified (principal)
CPT/HCPCS: 36415; 80053; 85007; 85025; 85027

== ENCOUNTER 2022-02-24 06:40 | Outpatient (REF) | payer MEDICARE, MEDICAID, SELFPAY ==
[2022-02-24 10:38] LABS: Hematocrit 30.9 % (42.0-52.0); Hemoglobin 9.6 g/dl (14.0-18.0); Mean Corpuscular HGB Conc 31.1 g/dl (31.0-36.0); Mean Corpuscular Hemoglobin 30.9 pg (27.0-33.0); Mean Corpuscular Volume 99.4 fL (80.0-98.0); NRBC Pct Auto 0.2 /100WBC (0.0-0.2); Platelet Count 70 X10*3/uL (160-400); Red Blood Count 3.11 X10*6/uL (4.60-5.80); Red Cell Distribution Width 22.4 % (11.0-16.0); White Blood Count 12.2 X10*3/uL (4.8-10.8)
[2022-02-24 11:07] LABS: Alanine Aminotransferase 24 U/L (0-40); Albumin Level 3.6 g/dL (3.5-5.0); Alkaline Phosphatase 221 U/L (39-117); Anion Gap 13 (12-20); Aspartate Amino Transferase 28 U/L (5-37); Bilirubin Total 0.5 mg/dL (0.0-1.0); Blood Urea Nitrogen 11 mg/dL (9-16); Calcium 8.9 mg/dL (8.4-10.2); Carbon Dioxide 27 mmol/L (22-29); Chloride 106 mmol/L (96-108); Estimated Glomerular Filt Rate > 60; Glucose Random 103 mg/dL (60-115); Potassium 3.6 mmol/L (3.3-5.1); Sodium 142 mmol/L (135-145)
[2022-02-24 11:38] LABS: Band Neutrophils Percent 22 % (3-5); Basophils Abs Manual 0.4 X10*3/uL (0.0-0.2); Basophils Percent Manual 3 % (0-2); Eosinophils Absolute Manual 0.4 X10*3/uL (0.0-0.4); Eosinophils Percent Manual 3 % (0-4); Lymphocytes Absolute Manual 1.8 X10*3/uL (1.2-4.9); Lymphocytes Percent Manual 15 % (20-40); Metamyelocytes Absolute 0.2 X10*3/uL; Metamyelocytes Percent 2 %; Monocytes Absolute Manual 0.9 X10*3/uL (0.1-1.2); Monocytes Percent Manual 7 % (2-11); Neutrophils Absolute Manual 8.5 X10*3/uL (2.0-8.3); Neutrophils Percent Manual 48 % (45-73)
[2022-02-24 11:40] LABS: Macrocytosis 1+ (5-14) /OIF; Microcytosis 1+ (5-14) /OIF; Platelet Estimate DECREASED (NORMAL); RBC Morphology NOTED
[2022-02-24 11:41] LABS: Giant Platelet PRESENT; Platelet Morphology Comment NOTED
[2022-02-24 11:42] LABS: Ovalocytes 1+ (5-14) /OIF; Schistocytes 1+ (0-2) /OIF; Tear Drop Cells 1+ (0-2) /OIF
== END 2022-02-24 06:41 | disposition home or self-care (01) ==
LOC: HO.LHD 06:40
PROVIDERS: Visit Provider Internal Medicine Medical Oncology
DX: C16.9 Malignant neoplasm of stomach, unspecified (principal)
CPT/HCPCS: 36415; 80053; 85007; 85027

== ENCOUNTER 2022-02-28 08:43 | Outpatient (REF) | payer MEDICARE, MEDICAID, SELFPAY ==
--- NOTE | ~2022-02-28 | CT_ITS ---
EXAMINATION: CT ABDOMEN AND PELVIS WITHOUT CONTRAST CLINICAL INFORMATION: Follow-up gastric cancer. On chemotherapy. COMPARISON: Previous CT August 2021 and PET/CT September 2021 TECHNIQUE: Multidetector volumetric imaging was performed from the superior aspect of the liver through the pubic symphysis. Sagittal and coronal reformatted images were obtained on the technologist's workstation. This CT examination was performed using dose optimization techniques as appropriate, variously including the following: *Automated exposure control *Adjustment of mA and/or kV according to patient size (this includes techniques or standardized protocols for targeted exams where dose is matched to indication/reason for exam; i.e. extremities or head) *Use of iterative reconstruction technique DLP: 302 mGy-cm FINDINGS: LUNG BASES: The visualized lung bases are unremarkable. LIVER, GALLBLADDER, AND BILIARY TREE: Evaluation of the liver is limited without IV contrast. The liver is normal in size, shape, and attenuation. No focal hepatic lesion or biliary ductal dilatation is present. The gallbladder is unremarkable with no evidence of radiopaque gallstones, gallbladder wall thickening, or obvious pericholecystic inflammatory changes. PANCREAS: Unremarkable. SPLEEN: Unremarkable. ADRENAL GLANDS: Fullness of both adrenal glands. Stable. KIDNEYS AND URETERS: The kidneys are normal in size, shape, and attenuation. No hydronephrosis, hydroureter, or calculi seen. No perinephric stranding. BLADDER: Unremarkable. GASTROINTESTINAL TRACT: There is still diffuse wall thickening of the distal stomach. This may be slightly decreased in size from previous exam. The question ulcerative soft tissue mass adjacent to the proximal duodenum and head of the pancreas is decreased in size measuring 2.8 cm axial image 23 series 3. There is adjacent perigastric lymph nodes. There are postsurgical changes from gastrojejunostomy. There is wall thickening of the proximal right colon. There is stool throughout the colon suggestive of constipation. There is mild infiltration of the fat inferior to the stomach and small nodules for example measuring 4 mm axial image 33 series 3. Appearance is questionable for possible peritoneal disease versus postoperative change. The appendix is not seen. ABDOMINAL WALL: No significant hernia is appreciated. LYMPH NODES: There are small perigastric lymph nodes. There are small bilateral inguinal lymph nodes. No enlarged lymph nodes are seen. There is no ascites. VASCULAR: There is atherosclerotic disease. PELVIC VISCERA: The prostate gland is enlarged. OSSEOUS STRUCTURES: There are degenerative changes of the spine. CT/CT abdomen pelvis wo con IMPRESSION: Interval decrease in wall thickening of the distal stomach and probable ulcerative mass adjacent to the distal stomach/proximal duodenum to the head of the pancreas. Small perigastric lymph nodes. Fat stranding and small nodules in the fat inferior to the stomach questionable for evidence of peritoneal disease versus post operative change from gastrojejunostomy. Previously identified liver lesions are not appreciated on noncontrast imaging. New wall thickening of the proximal right colon questionable for colitis. Fleischner guidelines were followed.
[2022-02-28] MEDS: Barium Sulfate Oral (Mocha) 450 ML ORAL.SUSP 900 ML PO (11:20)
== END 2022-02-28 08:44 | disposition home or self-care (01) ==
LOC: HO.CT 08:43
PROVIDERS: PCP Internal Medicine; Visit Provider Internal Medicine Medical Oncology
DX: C16.9 Malignant neoplasm of stomach, unspecified (principal)
CPT/HCPCS: 74176

== ENCOUNTER 2022-03-03 07:02 | Outpatient (REF) | payer MEDICARE, MEDICAID, SELFPAY ==
[2022-03-03 10:44] LABS: Hematocrit 31.2 % (42.0-52.0); Hemoglobin 9.8 g/dl (14.0-18.0); Mean Corpuscular HGB Conc 31.4 g/dl (31.0-36.0); Mean Corpuscular Hemoglobin 31.5 pg (27.0-33.0); Mean Corpuscular Volume 100.3 fL (80.0-98.0); Platelet Count 103 X10*3/uL (160-400); Red Blood Count 3.11 X10*6/uL (4.60-5.80); Red Cell Distribution Width 21.1 % (11.0-16.0); White Blood Count 11.5 X10*3/uL (4.8-10.8)
[2022-03-03 11:14] LABS: Alanine Aminotransferase 19 U/L (0-40); Albumin Level 3.6 g/dL (3.5-5.0); Alkaline Phosphatase 250 U/L (39-117); Anion Gap 12 (12-20); Aspartate Amino Transferase 23 U/L (5-37); Band Neutrophils Percent 10 % (3-5); Bilirubin Total 0.4 mg/dL (0.0-1.0); Blood Urea Nitrogen 20 mg/dL (9-16); Calcium 8.7 mg/dL (8.4-10.2); Carbon Dioxide 26 mmol/L (22-29); Chloride 106 mmol/L (96-108); Cholesterol 140 mg/dL; Eosinophils Absolute Manual 0.1 X10*3/uL (0.0-0.4); Eosinophils Percent Manual 1 % (0-4); Estimated Glomerular Filt Rate > 60; Glucose Random 85 mg/dL (60-115); HDL Cholesterol 55 mg/dL; LDL Cholesterol Calculated 67 mg/dl; Lymphocytes Absolute Manual 1.6 X10*3/uL (1.2-4.9); Lymphocytes Percent Manual 14 % (20-40); Monocytes Absolute Manual 0.2 X10*3/uL (0.1-1.2); Monocytes Percent Manual 2 % (2-11); Neutrophils Absolute Manual 9.5 X10*3/uL (2.0-8.3); Neutrophils Percent Manual 73 % (45-73); Potassium 4.2 mmol/L (3.3-5.1); Sodium 140 mmol/L (135-145); Triglycerides 91 mg/dL
[2022-03-03 11:16] LABS: Dohle Bodies PRESENT; Macrocytosis 1+ (5-14) /OIF; RBC Morphology NOTED
[2022-03-03 11:18] LABS: Acanthocytes 2+ (3-5) /OIF; Tear Drop Cells 1+ (0-2) /OIF
[2022-03-03 11:19] LABS: Ovalocytes 1+ (5-14) /OIF; Platelet Estimate DECREASED (NORMAL)
[2022-03-03 11:20] LABS: Platelet Morphology Comment NORMAL
[2022-03-03 11:38] LABS: Prostate Specific Antigen Scr 4.87 ng/mL (<0.05-4.0)
== END 2022-03-03 07:03 | disposition home or self-care (01) ==
LOC: HO.LHD 07:02
PROVIDERS: Nurse Practitioner Family; Visit Provider Internal Medicine Medical Oncology
DX: Z00.00 Encounter for general adult medical examination without abnormal findings (principal); Z12.5 Encounter for screening for malignant neoplasm of prostate; E78.00 Pure hypercholesterolemia, unspecified; C16.9 Malignant neoplasm of stomach, unspecified
CPT/HCPCS: 36415; 80053; 80061; 82378; 84153; 85007; 85027

== ENCOUNTER 2022-03-10 14:41 | Outpatient (REF) | payer MEDICARE, MEDICAID, SELFPAY ==
[2022-03-10 10:34] LABS: MANUAL DIFF FLAG NO
[2022-03-10 10:44] LABS: Basophils Absolute Auto 0.1 X10*3/uL (0.0-0.2); Basophils Percent Auto 0.9 % (0-2); Eosinophils Absolute Auto 0.1 X10*3/uL (0.0-0.4); Eosinophils Percent Auto 1.8 % (0-4); Hematocrit 29.2 % (42.0-52.0); Hemoglobin 9.2 g/dl (14.0-18.0); Imm Gran Abs Auto 0.24 X10*3/uL (0.00-0.03); Imm Gran Pct Auto 4.2 % (0.0-0.4); Lymphocytes Absolute Auto 1.3 X10*3/uL (1.2-4.9); Lymphocytes Percent Auto 22.9 % (20-40); Mean Corpuscular HGB Conc 31.5 g/dl (31.0-36.0); Mean Corpuscular Hemoglobin 31.8 pg (27.0-33.0); Mean Platelet Volume 11.7 fL (9.4-12.4); Monocytes Absolute Auto 0.7 X10*3/uL (0.1-1.2); Monocytes Percent Auto 11.4 % (2-11); Neutrophils Absolute Auto 3.4 x10*3/uL (2.0-8.3); Neutrophils Percent Auto 58.8 % (45-73); Red Blood Count 2.89 X10*6/uL (4.60-5.80); Red Cell Distribution Width 21.3 % (11.0-16.0); White Blood Count 5.7 X10*3/uL (4.8-10.8)
[2022-03-10 10:47] LABS: Platelet Count 61 X10*3/uL (160-400)
[2022-03-10 11:45] LABS: Alanine Aminotransferase 20 U/L (0-40); Albumin Level 3.3 g/dL (3.5-5.0); Alkaline Phosphatase 159 U/L (39-117); Anion Gap 11 (12-20); Aspartate Amino Transferase 25 U/L (5-37); Bilirubin Total 0.3 mg/dL (0.0-1.0); Blood Urea Nitrogen 12 mg/dL (9-16); Calcium 8.6 mg/dL (8.4-10.2); Carbon Dioxide 27 mmol/L (22-29); Chloride 108 mmol/L (96-108); Estimated Glomerular Filt Rate > 60; Glucose Random 113 mg/dL (60-115); Potassium 3.8 mmol/L (3.3-5.1); Sodium 142 mmol/L (135-145); Total Protein 5.6 g/dL (6.5-8.0)
== END 2022-03-10 14:42 | disposition home or self-care (01) ==
LOC: HO.LHD 14:41
PROVIDERS: Visit Provider Internal Medicine Medical Oncology
DX: C16.9 Malignant neoplasm of stomach, unspecified (principal)
CPT/HCPCS: 36415; 80053; 85025

== ENCOUNTER 2022-03-17 05:46 | Outpatient (REF) | payer MEDICARE, MEDICAID, SELFPAY ==
[2022-03-17 11:21] LABS: Hematocrit 28.5 % (42.0-52.0); Mean Corpuscular HGB Conc 31.6 g/dl (31.0-36.0); Mean Corpuscular Hemoglobin 32.6 pg (27.0-33.0); Mean Corpuscular Volume 103.3 fL (80.0-98.0); Mean Platelet Volume 11.8 fL (9.4-12.4); NRBC Pct Auto 0.3 /100WBC (0.0-0.2); Red Blood Count 2.76 X10*6/uL (4.60-5.80); Red Cell Distribution Width 21.4 % (11.0-16.0); White Blood Count 8.8 X10*3/uL (4.8-10.8)
[2022-03-17 11:24] LABS: Platelet Count 59 X10*3/uL (160-400)
[2022-03-17 12:06] LABS: Band Neutrophils Percent 5 % (3-5); Basophils Abs Manual 0.1 X10*3/uL (0.0-0.2); Basophils Percent Manual 1 % (0-2); Lymphocytes Absolute Manual 0.9 X10*3/uL (1.2-4.9); Lymphocytes Percent Manual 10 % (20-40); Monocytes Absolute Manual 0.2 X10*3/uL (0.1-1.2); Monocytes Percent Manual 2 % (2-11); Neutrophils Absolute Manual 7.7 X10*3/uL (2.0-8.3); Neutrophils Percent Manual 82 % (45-73); Nucleated Red Blood Cells 1 /100WBC (0-0)
[2022-03-17 12:07] LABS: Acanthocytes 1+ (0-2) /OIF; Hypochromasia 1+ (5-14) /OIF; Macrocytosis 1+ (5-14) /OIF; Ovalocytes 1+ (5-14) /OIF; Platelet Estimate DECREASED (NORMAL); Platelet Morphology Comment NORMAL; RBC Morphology NOTED; Schistocytes 1+ (0-2) /OIF
[2022-03-17 12:08] LABS: Dohle Bodies PRESENT
[2022-03-17 13:01] LABS: Alanine Aminotransferase 28 U/L (0-40); Albumin Level 3.4 g/dL (3.5-5.0); Alkaline Phosphatase 223 U/L (39-117); Anion Gap 13 (12-20); Aspartate Amino Transferase 33 U/L (5-37); Bilirubin Total 0.5 mg/dL (0.0-1.0); Blood Urea Nitrogen 20 mg/dL (9-16); Calcium 8.4 mg/dL (8.4-10.2); Carbon Dioxide 24 mmol/L (22-29); Chloride 108 mmol/L (96-108); Estimated Glomerular Filt Rate > 60; Glucose Random 81 mg/dL (60-115); Potassium 3.9 mmol/L (3.3-5.1); Sodium 141 mmol/L (135-145); Total Protein 5.8 g/dL (6.5-8.0)
== END 2022-03-17 05:47 | disposition home or self-care (01) ==
LOC: HO.LHD 05:46
PROVIDERS: Visit Provider Internal Medicine Medical Oncology
DX: C16.9 Malignant neoplasm of stomach, unspecified (principal)
CPT/HCPCS: 36415; 80053; 85007; 85027

== ENCOUNTER 2022-03-25 08:30 | Outpatient (REF) | payer MEDICARE, MEDICAID, SELFPAY ==
[2022-03-25 12:57] LABS: Hematocrit 28.3 % (42.0-52.0); Mean Corpuscular HGB Conc 31.8 g/dl (31.0-36.0); Mean Corpuscular Hemoglobin 33.7 pg (27.0-33.0); Mean Platelet Volume 12.6 fL (9.4-12.4); NRBC Pct Auto 0.3 /100WBC (0.0-0.2); Red Blood Count 2.67 X10*6/uL (4.60-5.80); Red Cell Distribution Width 22.1 % (11.0-16.0); White Blood Count 15.1 X10*3/uL (4.8-10.8)
[2022-03-25 13:00] LABS: Platelet Count 78 X10*3/uL (160-400)
[2022-03-25 13:15] LABS: Alanine Aminotransferase 22 U/L (0-40); Albumin Level 3.6 g/dL (3.5-5.0); Alkaline Phosphatase 182 U/L (39-117); Anion Gap 12 (12-20); Aspartate Amino Transferase 31 U/L (5-37); Bilirubin Total 0.3 mg/dL (0.0-1.0); Blood Urea Nitrogen 14 mg/dL (9-16); Calcium 8.5 mg/dL (8.4-10.2); Carbon Dioxide 25 mmol/L (22-29); Chloride 108 mmol/L (96-108); Estimated Glomerular Filt Rate > 60; Glucose Random 74 mg/dL (60-115); Potassium 3.9 mmol/L (3.3-5.1); Sodium 141 mmol/L (135-145); Total Protein 5.9 g/dL (6.5-8.0)
[2022-03-25 13:23] LABS: Band Neutrophils Percent 6 % (3-5); Lymphocytes Absolute Manual 1.5 X10*3/uL (1.2-4.9); Lymphocytes Percent Manual 10 % (20-40); Metamyelocytes Absolute 0.3 X10*3/uL; Metamyelocytes Percent 2 %; Monocytes Absolute Manual 2.1 X10*3/uL (0.1-1.2); Monocytes Percent Manual 14 % (2-11); Myelocytes Absolute 0.2 X10*/uL; Myelocytes Percent 1 %; Neutrophils Percent Manual 67 % (45-73)
[2022-03-25 13:26] LABS: Macrocytosis 1+ (5-14) /OIF; RBC Morphology NOTED; Tear Drop Cells 2+ (3-5) /OIF
[2022-03-25 13:27] LABS: Hypochromasia 1+ (5-14) /OIF; Platelet Estimate DECREASED (NORMAL); Polychromasia 1+ (0-2) /OIF
[2022-03-25 13:28] LABS: Platelet Morphology Comment NORMAL
== END 2022-03-25 08:31 | disposition home or self-care (01) ==
LOC: HO.LHD 08:30
PROVIDERS: Visit Provider Internal Medicine Medical Oncology
DX: C16.9 Malignant neoplasm of stomach, unspecified (principal)
CPT/HCPCS: 36415; 80053; 85007; 85025; 85027

== ENCOUNTER 2022-03-31 08:04 | Outpatient (REF) | payer MEDICARE, MEDICAID, SELFPAY ==
[2022-03-31 10:40] LABS: MANUAL DIFF FLAG NO
[2022-03-31 10:47] LABS: Basophils Percent Auto 0.4 % (0-2); Eosinophils Absolute Auto 0.1 X10*3/uL (0.0-0.4); Eosinophils Percent Auto 1.6 % (0-4); Hematocrit 30.1 % (42.0-52.0); Hemoglobin 9.3 g/dl (14.0-18.0); Imm Gran Abs Auto 0.08 X10*3/uL (0.00-0.03); Imm Gran Pct Auto 1.2 % (0.0-0.4); Lymphocytes Absolute Auto 0.8 X10*3/uL (1.2-4.9); Lymphocytes Percent Auto 12.2 % (20-40); Mean Corpuscular HGB Conc 30.9 g/dl (31.0-36.0); Mean Corpuscular Hemoglobin 33.3 pg (27.0-33.0); Mean Corpuscular Volume 107.9 fL (80.0-98.0); Mean Platelet Volume 11.8 fL (9.4-12.4); Monocytes Absolute Auto 0.7 X10*3/uL (0.1-1.2); Monocytes Percent Auto 10.4 % (2-11); Neutrophils Absolute Auto 5.1 x10*3/uL (2.0-8.3); Neutrophils Percent Auto 74.2 % (45-73); Platelet Count 153 X10*3/uL (160-400); Red Blood Count 2.79 X10*6/uL (4.60-5.80); Red Cell Distribution Width 21.7 % (11.0-16.0); White Blood Count 6.9 X10*3/uL (4.8-10.8)
[2022-03-31 11:46] LABS: Alanine Aminotransferase 21 U/L (0-40); Albumin Level 3.4 g/dL (3.5-5.0); Alkaline Phosphatase 163 U/L (39-117); Anion Gap 10 (12-20); Aspartate Amino Transferase 27 U/L (5-37); Bilirubin Total < 0.2 mg/dL (0.0-1.0); Blood Urea Nitrogen 19 mg/dL (9-16); Calcium 8.6 mg/dL (8.4-10.2); Carbon Dioxide 26 mmol/L (22-29); Chloride 108 mmol/L (96-108); Estimated Glomerular Filt Rate > 60; Glucose Random 89 mg/dL (60-115); Potassium 4.3 mmol/L (3.3-5.1); Sodium 140 mmol/L (135-145); Total Protein 5.7 g/dL (6.5-8.0)
== END 2022-03-31 08:05 | disposition home or self-care (01) ==
LOC: HO.LHD 08:04
PROVIDERS: Visit Provider Internal Medicine Medical Oncology
DX: C16.9 Malignant neoplasm of stomach, unspecified (principal)
CPT/HCPCS: 36415; 80053; 85025

== ENCOUNTER 2022-04-07 | Outpatient (REF) | payer MEDICARE, MEDICAID, SELFPAY | END 2022-04-07 00:01 | disposition home or self-care (01) | LOC: HO.LHD | PROVIDERS: Visit Provider Internal Medicine Medical Oncology | DX: Z13.89 Encounter for screening for other disorder (principal) ==

== ENCOUNTER 2022-04-21 14:26 | Outpatient (REF) | payer MEDICARE, MEDICAID, SELFPAY ==
[2022-04-21 10:45] LABS: MANUAL DIFF FLAG NO
[2022-04-21 10:46] LABS: Basophils Absolute Auto 0.1 X10*3/uL (0.0-0.2); Basophils Percent Auto 0.8 % (0-2); Eosinophils Absolute Auto 0.2 X10*3/uL (0.0-0.4); Eosinophils Percent Auto 3.2 % (0-4); Hematocrit 31.9 % (42.0-52.0); Hemoglobin 10.2 g/dl (14.0-18.0); Imm Gran Abs Auto 0.05 X10*3/uL (0.00-0.03); Imm Gran Pct Auto 0.8 % (0.0-0.4); Lymphocytes Percent Auto 14.3 % (20-40); Mean Corpuscular Hemoglobin 34.1 pg (27.0-33.0); Mean Corpuscular Volume 106.7 fL (80.0-98.0); Mean Platelet Volume 11.7 fL (9.4-12.4); Monocytes Percent Auto 15.7 % (2-11); Neutrophils Absolute Auto 4.3 x10*3/uL (2.0-8.3); Neutrophils Percent Auto 65.2 % (45-73); Platelet Count 155 X10*3/uL (160-400); Red Blood Count 2.99 X10*6/uL (4.60-5.80); Red Cell Distribution Width 17.6 % (11.0-16.0); White Blood Count 6.6 X10*3/uL (4.8-10.8)
[2022-04-21 11:34] LABS: Alanine Aminotransferase 25 U/L (0-40); Albumin Level 3.6 g/dL (3.5-5.0); Alkaline Phosphatase 185 U/L (39-117); Anion Gap 13 (12-20); Aspartate Amino Transferase 36 U/L (5-37); Bilirubin Total 0.3 mg/dL (0.0-1.0); Blood Urea Nitrogen 16 mg/dL (9-16); Calcium 8.7 mg/dL (8.4-10.2); Carbon Dioxide 27 mmol/L (22-29); Chloride 107 mmol/L (96-108); Estimated Glomerular Filt Rate > 60; Glucose Random 65 mg/dL (60-115); Potassium 4.1 mmol/L (3.3-5.1); Sodium 143 mmol/L (135-145); Total Protein 6.3 g/dL (6.5-8.0)
== END 2022-04-21 14:27 | disposition home or self-care (01) ==
LOC: HO.LHD 14:26
PROVIDERS: Visit Provider Internal Medicine Medical Oncology
DX: C16.9 Malignant neoplasm of stomach, unspecified (principal)
CPT/HCPCS: 36415; 80053; 85025

== ENCOUNTER 2022-05-05 10:11 | Outpatient (REF) | payer MEDICARE, MEDICAID, SELFPAY ==
[2022-05-05 12:12] LABS: Folate > 20.0 ng/mL (> or = 4.0); Vitamin B12 > 2000 pg/mL (200-900)
== END 2022-05-05 10:12 | disposition home or self-care (01) ==
LOC: HO.LAB 10:11
PROVIDERS: PCP Internal Medicine; Visit Provider Psychiatry & Neurology Neurology
DX: G62.9 Polyneuropathy, unspecified (principal)
CPT/HCPCS: 36415; 82607; 82746

== ENCOUNTER 2022-05-12 08:26 | Outpatient (REF) | payer MEDICARE, MEDICAID, SELFPAY ==
[2022-05-12 11:49] LABS: MANUAL DIFF FLAG NO
[2022-05-12 11:56] LABS: Basophils Absolute Auto 0.1 X10*3/uL (0.0-0.2); Basophils Percent Auto 0.9 % (0-2); Eosinophils Absolute Auto 0.2 X10*3/uL (0.0-0.4); Eosinophils Percent Auto 2.5 % (0-4); Hematocrit 31.4 % (42.0-52.0); Hemoglobin 10.1 g/dl (14.0-18.0); Imm Gran Abs Auto 0.05 X10*3/uL (0.00-0.03); Imm Gran Pct Auto 0.7 % (0.0-0.4); Lymphocytes Absolute Auto 1.2 X10*3/uL (1.2-4.9); Lymphocytes Percent Auto 18.2 % (20-40); Mean Corpuscular HGB Conc 32.2 g/dl (31.0-36.0); Mean Corpuscular Hemoglobin 33.8 pg (27.0-33.0); Mean Platelet Volume 10.9 fL (9.4-12.4); Monocytes Absolute Auto 0.9 X10*3/uL (0.1-1.2); Neutrophils Absolute Auto 4.3 x10*3/uL (2.0-8.3); Neutrophils Percent Auto 63.7 % (45-73); Platelet Count 155 X10*3/uL (160-400); Red Blood Count 2.99 X10*6/uL (4.60-5.80); Red Cell Distribution Width 15.2 % (11.0-16.0); White Blood Count 6.7 X10*3/uL (4.8-10.8)
[2022-05-12 12:36] LABS: Alanine Aminotransferase 21 U/L (0-40); Albumin Level 3.4 g/dL (3.5-5.0); Alkaline Phosphatase 180 U/L (39-117); Anion Gap 12 (12-20); Aspartate Amino Transferase 33 U/L (5-37); Bilirubin Total 0.2 mg/dL (0.0-1.0); Blood Urea Nitrogen 16 mg/dL (9-16); Calcium 9.1 mg/dL (8.4-10.2); Carbon Dioxide 29 mmol/L (22-29); Chloride 107 mmol/L (96-108); Estimated Glomerular Filt Rate > 60; Glucose Random 81 mg/dL (60-115); Potassium 4.7 mmol/L (3.3-5.1); Sodium 143 mmol/L (135-145); Total Protein 5.9 g/dL (6.5-8.0)
== END 2022-05-12 08:27 | disposition home or self-care (01) ==
LOC: HO.LHD 08:26
PROVIDERS: Visit Provider Internal Medicine Medical Oncology
DX: C16.9 Malignant neoplasm of stomach, unspecified (principal)
CPT/HCPCS: 36415; 80053; 85025

== ENCOUNTER → 2022-05-19 12:30 | Outpatient (REF) | payer MEDICARE, MEDICAID, SELFPAY ==
--- NOTE | 2022-05-19 12:33 | CA_ITS ---
Transthoracic Echocardiogram Patient (Last, First, Middle): Jeffrey Schilling A Gender: Male Date of : 1940 Age: 82 Procedure Date: 05/19/2022 Procedure Type: Transthoracic Echocardiogram Location: OP Height: 182.88 cm Weight: 59.88 kg BSA: 1.79 m2 Heart Rate: bpm BP: 120 / 60 mmHg External Relations Manager: AKANKSHA Referring MD: Tiara Conroy MD Symptoms: Follow-up while on chemotherapy Study Quality: Fair ECG Rhythm: Sinus with FREQUENT extra beats Conclusions: - 1. Normal LV systolic and diastolic function 2. Normal RV systolic pressure Findings Left Ventricle Normal left ventricular size, thickness, and systolic function. The visually estimated ejection fraction is between 55-60%. Spectral Doppler is indicative of a normal filling pattern. Peak GLS is -16.6%, which is marginally reduced. Tricuspid Valve There is trace tricuspid valve regurgitation. The right ventricular systolic pressure is normal. Mildly elevated right atrial pressure. There is no evidence of pulmonary hypertension. Pericardium/Pleural There is no evidence of pericardial effusion. Prior Study Comparison Changes noted compared to prior study dated: 02/06/2022. Peak GLS is reduced Measurements 2D Linear Measurements IVSd: 0.83 0.6-0.9/0.6-1.0 cm LVIDd: 4.81 3.9-5.3/4.2-5.9 cm LVIDd Index: 2.69 2.4-3.2/2.2-3.1 cm/m2 LVIDs: 3.54 2.0-3.6 cm LVPWd: 0.94 0.7-1.1 cm LV Mass: 180.96 67-162/88-224 g LV Mass Index: 101.09 43-95/49-115 g/m2 2D Systolic Function EF 4C: 48.30 >55% EF 2C: 55.80 >55% Mitral Valve MV Pk E: 0.81 MV PK A: 0.54 MV Decel Time: 168.00 E/A: 1.50 E'Lateral: 11.60 E'Medial: 10.40 E/E' Med: 7.80 E/E' Lat: 7.00 PHT: 49.00 MVA PHT: 4.49 Decel [place]: 4.82 Diastolic Function MV Pk E: 0.81 MV Pk A: 0.54 E/A: 1.50 E'Medial: 10.40 E/E' Med: 7.80 E' Laterial: 11.60 E/E' Lat: 7.00 Right Ventricle TAPSE (mm): 23.00 TVS' Stevie: 12.00 Tricuspid Valve TR Pk Stevie: 2.20 TR Pk Grad: 19.00 RA Press: 8.00 RVSP: 27.00 Updated in Other Vendor System with Status of Final Louie Villasenor MD electronically signed on 05/19/2022 4:20:23 PM with status of Final
== END ==
LOC: HO.CARD 12:30
PROVIDERS: PCP Internal Medicine; Visit Provider Internal Medicine Medical Oncology
DX: C16.9 Malignant neoplasm of stomach, unspecified (principal)
CPT/HCPCS: 93308; 93356

== ENCOUNTER 2022-06-02 07:24 | Outpatient (REF) | payer MEDICARE, MEDICAID, SELFPAY ==
[2022-06-02 12:35] LABS: MANUAL DIFF FLAG NO
[2022-06-02 12:43] LABS: Basophils Absolute Auto 0.1 X10*3/uL (0.0-0.2); Basophils Percent Auto 0.6 % (0-2); Eosinophils Absolute Auto 0.1 X10*3/uL (0.0-0.4); Eosinophils Percent Auto 1.2 % (0-4); Hematocrit 33.9 % (42.0-52.0); Hemoglobin 10.7 g/dl (14.0-18.0); Imm Gran Abs Auto 0.09 X10*3/uL (0.00-0.03); Imm Gran Pct Auto 0.9 % (0.0-0.4); Lymphocytes Absolute Auto 1.5 X10*3/uL (1.2-4.9); Lymphocytes Percent Auto 14.5 % (20-40); Mean Corpuscular HGB Conc 31.6 g/dl (31.0-36.0); Mean Corpuscular Hemoglobin 32.3 pg (27.0-33.0); Mean Corpuscular Volume 102.4 fL (80.0-98.0); Mean Platelet Volume 10.9 fL (9.4-12.4); Monocytes Absolute Auto 1.2 X10*3/uL (0.1-1.2); Monocytes Percent Auto 11.1 % (2-11); Neutrophils Absolute Auto 7.5 x10*3/uL (2.0-8.3); Neutrophils Percent Auto 71.7 % (45-73); Platelet Count 183 X10*3/uL (160-400); Red Blood Count 3.31 X10*6/uL (4.60-5.80); Red Cell Distribution Width 15.3 % (11.0-16.0); White Blood Count 10.5 X10*3/uL (4.8-10.8)
[2022-06-02 13:17] LABS: Alanine Aminotransferase 37 U/L (0-40); Albumin Level 3.6 g/dL (3.5-5.0); Alkaline Phosphatase 252 U/L (39-117); Anion Gap 14 (12-20); Aspartate Amino Transferase 60 U/L (5-37); Bilirubin Total 0.3 mg/dL (0.0-1.0); Blood Urea Nitrogen 12 mg/dL (9-16); Calcium 8.8 mg/dL (8.4-10.2); Carbon Dioxide 28 mmol/L (22-29); Chloride 106 mmol/L (96-108); Estimated Glomerular Filt Rate > 60; Glucose Random 90 mg/dL (60-115); Potassium 4.5 mmol/L (3.3-5.1); Sodium 143 mmol/L (135-145); Total Protein 6.8 g/dL (6.5-8.0)
== END 2022-06-02 07:25 | disposition home or self-care (01) ==
LOC: HO.LHD 07:24
PROVIDERS: Visit Provider Internal Medicine Medical Oncology
DX: C16.9 Malignant neoplasm of stomach, unspecified (principal)
CPT/HCPCS: 36415; 80053; 85025

== ENCOUNTER 2022-06-23 11:33 | Outpatient (REF) | payer MEDICARE, MEDICAID, SELFPAY ==
[2022-06-23 08:39] LABS: MANUAL DIFF FLAG NO
[2022-06-23 08:41] LABS: Basophils Absolute Auto 0.1 X10*3/uL (0.0-0.2); Basophils Percent Auto 0.8 % (0-2); Eosinophils Absolute Auto 0.2 X10*3/uL (0.0-0.4); Eosinophils Percent Auto 2.2 % (0-4); Hematocrit 35.1 % (42.0-52.0); Hemoglobin 11.3 g/dl (14.0-18.0); Imm Gran Pct Auto 0.9 % (0.0-0.4); Lymphocytes Absolute Auto 1.4 X10*3/uL (1.2-4.9); Lymphocytes Percent Auto 13.2 % (20-40); Mean Corpuscular HGB Conc 32.2 g/dl (31.0-36.0); Mean Corpuscular Hemoglobin 32.5 pg (27.0-33.0); Mean Corpuscular Volume 100.9 fL (80.0-98.0); Mean Platelet Volume 10.4 fL (9.4-12.4); Monocytes Absolute Auto 1.3 X10*3/uL (0.1-1.2); Monocytes Percent Auto 12.1 % (2-11); Neutrophils Absolute Auto 7.7 x10*3/uL (2.0-8.3); Neutrophils Percent Auto 70.8 % (45-73); Platelet Count 238 X10*3/uL (160-400); Red Blood Count 3.48 X10*6/uL (4.60-5.80); Red Cell Distribution Width 15.6 % (11.0-16.0); White Blood Count 10.8 X10*3/uL (4.8-10.8)
[2022-06-23 09:19] LABS: Alanine Aminotransferase 41 U/L (0-40); Albumin Level 3.7 g/dL (3.5-5.0); Alkaline Phosphatase 487 U/L (39-117); Anion Gap 15 (12-20); Aspartate Amino Transferase 90 U/L (5-37); Bilirubin Total 0.4 mg/dL (0.0-1.0); Blood Urea Nitrogen 13 mg/dL (9-16); Calcium 8.9 mg/dL (8.4-10.2); Carbon Dioxide 26 mmol/L (22-29); Chloride 104 mmol/L (96-108); Estimated Glomerular Filt Rate > 60; Glucose Random 89 mg/dL (60-115); Potassium 4.3 mmol/L (3.3-5.1); Sodium 141 mmol/L (135-145); Total Protein 7.1 g/dL (6.5-8.0)
== END 2022-06-23 11:34 | disposition home or self-care (01) ==
LOC: HO.LHD 11:33
PROVIDERS: Visit Provider Internal Medicine Medical Oncology
DX: C16.9 Malignant neoplasm of stomach, unspecified (principal); Z79.899 Other long term (current) drug therapy
CPT/HCPCS: 36415; 80053; 82378; 85025

== ENCOUNTER 2022-07-08 08:30 | Outpatient (REF) | payer MEDICARE, MEDICAID, SELFPAY ==
--- NOTE | ~2022-07-08 | CT_ITS ---
EXAMINATION: CT CHEST WITH CONTRAST CLINICAL INFORMATION: Gastric carcinoma. Follow-up. COMPARISON: CT abdomen and pelvis 07/08/2022, PET/CT 10/08/2021, CTA chest 08/31/2021. TECHNIQUE: Multidetector volumetric CT imaging of the chest was obtained after the administration of 85 mL of Omnipaque 350 intravenous contrast without immediate adverse reactions. Axial MIP volume rendering provided. Sagittal and coronal reformatted images were obtained. This CT examination was performed using dose optimization techniques as appropriate, variously including the following: *Automated exposure control *Adjustment of mA and/or kV according to patient size (this includes techniques or standardized protocols for targeted exams where dose is matched to indication/reason for exam; i.e. extremities or head) *Use of iterative reconstruction technique DLP: 111 mGy-cm FINDINGS: LUNGS: Central airways are clear. No visible endobronchial lesion or bronchiectasis. No pneumothorax, lobar or segmental airspace consolidation, or interval pulmonary mass or metastatic disease. There is a small calcified granuloma are again seen posterior lateral left lower lobe. Subsegmental dependent atelectasis suggested right base. Stable bilateral apical pleural-parenchymal scarring. MEDIASTINUM: No central pulmonary embolism. No pericardial effusion. Thoracic aorta normal in caliber. No aneurysmal enlargement or dissection. No hilar or mediastinal adenopathy. CORONARY ARTERY CALCIFICATION: Present PLEURA: There is no pleural effusion. No pleural mass or thickening. AXILLA: No lymphadenopathy. UPPER ABDOMEN: CT abdomen and pelvis described in separate report. OSSEOUS STRUCTURES: Unremarkable. CT/CT chest w IV con IMPRESSION: 1. No intrathoracic metastases. No hilar or mediastinal mass. No effusion. 2. See CT abdomen and pelvis report for further information.
--- NOTE | ~2022-07-08 | CT_ITS ---
EXAMINATION: CT ABDOMEN AND PELVIS WITH CONTRAST CLINICAL INFORMATION: Gastric carcinoma. Follow-up. COMPARISON: CT abdomen and pelvis noncontrast 02/28/2022, CT abdomen and pelvis with IV contrast 08/31/2021, PET/CT 10/08/2021. TECHNIQUE: Multidetector volumetric images were obtained from the superior aspect of the liver through the pubic symphysis following administration 85 mL of Omnipaque 350 intravenous contrast. Sagittal and coronal reformatted images were obtained on the technologist's workstation. CT chest also performed, described in separate report. Oral contrast: Yes This CT examination was performed using dose optimization techniques as appropriate, variously including the following: *Automated exposure control *Adjustment of mA and/or kV according to patient size (this includes techniques or standardized protocols for targeted exams where dose is matched to indication/reason for exam; i.e. extremities or head) *Use of iterative reconstruction technique DLP: 259 mGy-cm FINDINGS: LUNG BASES: Dependent atelectasis right base. CT chest described in separate report. LIVER, GALLBLADDER, AND BILIARY TREE: There is interval bulky heterogeneous low-attenuation metastatic disease in the liver, largest lesion is segment 8 measuring approximately 10 x 9 cm. Next largest lesion is segment 6 measuring approximately 8.0 x 7.6 cm. No intrahepatic biliary ductal dilatation. No gallstones or gallbladder wall thickening. Common duct unremarkable. PANCREAS: Anterior pancreatic head indented by the gastric mass. No pancreatic ductal distention or peripancreatic inflammatory changes. SPLEEN: Unremarkable. ADRENAL GLANDS: Stable fullness adrenal glands similar to prior exam. KIDNEYS AND URETERS: Kidneys enhance symmetrically and normal in size. No hydronephrosis or hydroureter or perinephric stranding. Small cysts and parapelvic cyst on right are stable. No additional imaging evaluation recommended. BLADDER: Unremarkable. GASTROINTESTINAL TRACT: Prior gastrojejunostomy. Distal gastric mass appears larger, current measurement approximately 5.1 x 4.3 cm. The mass indents the ventral pancreatic head. There is stool throughout the colon. No small or large bowel obstruction or focal inflammatory changes. No ascites or fluid collection. No pneumatosis or free air. ABDOMINAL WALL: No significant hernia is appreciated. LYMPH NODES: No interval retroperitoneal or pelvic adenopathy. VASCULAR: There is normal enhancement of the portal vein and hepatic veins. PELVIC VISCERA: Unremarkable. OSSEOUS STRUCTURES: No acute bony abnormality. CT/CT abdomen pelvis w IV con IMPRESSION: 1. Interval development of bulky hepatic metastatic disease, largest measures 10 x 9 cm. 2. Distal gastric mass appears larger, around 5 cm. 3. No bowel obstruction. No ascites. 4. CT chest described in separate report.
[2022-07-08] MEDS: iohexoL 350 MG/ML 100 ML INFUS..BTL IV (11:26)
[2022-07-08] MEDS: Barium Sulfate Oral (Vanilla) 450 ML ORAL.SUSP 900 ML PO (11:27)
== END 2022-07-08 08:31 | disposition home or self-care (01) ==
LOC: HO.CT 08:30
PROVIDERS: PCP Internal Medicine; Visit Provider Internal Medicine Medical Oncology
DX: C16.9 Malignant neoplasm of stomach, unspecified (principal)
CPT/HCPCS: 71260; 74177; Q9967

== ENCOUNTER 2022-07-10 08:13 | Emergency (ER) | payer MEDICARE, MEDICAID, SELFPAY ==
[2022-07-10 08:20] VITALS: BP 147/88; PULSE 62; O2SAT 99
--- NOTE | 2022-07-10 08:27 | ED.ABDPAIN ---
HPI - Abdominal Pain General Chief Complaint: Abdominal Pain Stated Complaint: R FLANK TO BACK PAIN,NO INJURY PER EMS Time Seen by Provider: 07/10/22 08:21 Source: patient Mode of arrival: EMS Limitations: no limitations History of Present Illness HPI narrative: Patient is an 82-year-old male who presents to the emergency department for evaluation of right sided abdominal pain/rib pain that is radiating to the back. Onset was 1 week ago. Denies any trauma or injury. Pain has been constant but progressively worsening. It is described as aching and at times it is sharp he is unable to get comfortable. Denies any exacerbating or alleviating factors. Has trialed Tylenol without improvement. Reports that last night the pain got significantly worse. Denies any associated fever, chills, chest pain, shortness of breath, difficulty breathing, nausea, vomiting, left-sided abdominal pain, dysuria, urinary frequency/urgency/hesitancy, hematuria, bloody or dark stools, constipation or diarrhea. He does state that he has gastric cancer and he is currently on chemo. Related Data Home Medications Medication Instructions Recorded Confirmed polyethylene glycol 3350 17 17 g PO DAILY 12/31/21 05/15/22 gram/dose oral powder (Miralax) vitamin B complex 1 cap PO DAILY 06/03/22 06/03/22 Previous Rx's Medication Instructions Recorded ondansetron 8 mg disintegrating 8 mg PO Q8H #60 tabs 10/15/21 tablet Magic Mouthwash 10 ml PO QID #240 mL 12/31/21 Diphen/Lido/Antacid 1:1:1 240 mL suspension amlodipine 5 mg tablet 5 mg PO DAILY #90 caps 03/26/22 duloxetine 20 mg capsule,delayed 20 mg PO BID #60 caps 06/03/22 release oxycodone 5 mg tablet 5 mg PO Q6H PRN pain #18 tabs 07/10/22 Allergies Allergy/AdvReac Type Severity Reaction Status Date / Time No Known Allergies Allergy Verified 04/02/22 13:52 [No Known Allergies*] Review of Systems Review of Systems Constitutional : No Weight loss, No Fever, No Chills ENT/Mouth :? No sore throat, No Rhinorrhea Eyes: No Swelling, No Redness Cardiovascular : No Chest Pain, No SOB, No Edema Respiratory : No Cough, No Sputum, No Wheezing Gastrointestinal : No Nausea, no Vomiting, no Diarrhea, positive abdominal pain, No Hematochezia, No Melena Genitourinary : No Dysuria, No Urinary Frequency, No Hematuria, No Urgency? Musculoskeletal : No joint pain, No Myalgias, No Joint Swelling Skin : No Skin Lesions, No rash Neuro : No Weakness, No Numbness, No Dizziness, No Headache Psych : No Anxiety/Panic, No Depression Heme/Lymph: No Bruising, No Lymphadenopathy Endocrine : No Polyuria, No Polydipsia Yes all other systems are reviewed and are negative [facility] Past Medical History Attestation statement: The following information was validated with the patient. Source: old records reviewed Medical History Bacteremia Hypertension Vertigo Surgical History H/O bypass gastrojejunostomy History of appendectomy Family History Family History Father Past heart attack Mother Past heart attack Social History Social History Household Members: None Housing: Apartment Do you presently have visiting nurse or other home services: No Alcohol intake: unknown Patient Tobacco Use Status: Former Tobacco user Quit Date: quit 26 yr ago Tobacco use type: Cigarette Years Smoked: 30 e-Cigarette/Vaping Use: Never Used Second Hand Smoke Exposure: No Advance Directives: Yes Advance Directives on File: Yes Advance Directives Date on File: 11/12/21 service: Yes Current occupational status: retired Cognitive needs: No Hearing needs: No Vision needs: Yes Physical Exam ED Vital Signs: Vital Signs - 24 hr 07/10/22 08:30 07/10/22 12:08 Temperature 97.9 F 98.5 F Pulse Rate 61 58 Respiratory Rate 16 12 Blood Pressure 134/51 L 144/70 H Pulse Oximetry 97 97 Oxygen Delivery Method Room Air Room Air BMI result Body Mass Index 16.9 Vital signs have been reviewed as normal and appeared to be correct. Blood pressure normal.? Heart rate normal.? Respiration rate normal. Temperature normal.? Oxygen saturation normal. Appearance: Alert.?Oriented to person, place and time. No acute distress.?Normal affect. Eyes: Pupils equal, round and reactive to light.? ENT: Pharynx normal.?? Neck: Normal inspection.? Neck supple.?? CVS: Heart sounds normal. Normal heart rate and rhythm.? Pulses normal.?? Respiratory: No respiratory distress.? Lung sounds clear to auscultation bilaterally?? Abdomen: Soft diffuse right-sided tenderness. Normoactive bowel sounds.? Skin: Skin warm and dry.? Normal skin color.? Extremities: No lower extremity edema.? No calf ttp? Neuro: Moves all extremities spontaneously. Sensation intact bilaterally. CN II-XII intact. No focal neuro deficits. Ambulates with normal steady gait. Course Course Course Narrative: Patient is an 82-year-old male with a past medical history of hypertension, gastric adenocarcinoma, partial jejunostomy, history of appendectomy presents emergency department for evaluation of right-sided abdominal/flank pain. appears frail, cachectic. Appears to be in pain. Abdominal exam reveals significant tenderness upon palpation to the right upper and lower quadrants. No visible rashes or lesions. Had outpatient CT of the abdomen and chest obtained 07/08/2022, that have not yet been read by Radiology. Has no additional symptoms associated with this. Reevaluation(s) Reevaluation #1: CBC reveals leukocytosis 18.3 and anemia with hemoglobin of 10.5 and hematocrit of 13.8 which appears consistent with baseline. At this time no identified infectious process, lactic acid is normal, 1.5, and blood cultures have already been obtained. CMP is overall unremarkable AST is elevated at 1 005 is mildly elevated from prior labs obtained in [place] toe by her alkaline vomiting as well but appears consistent with baseline. Lipase is normal. Bilirubin normal. Troponin <3.5, EKG reveals normal sinus rhythm with incomplete right bundle-branch block no acute ischemic findings. Still awaiting radiology readings of abdominal and chest CT obtained on 07/08/2022. Pain has improved with morphine currently 10/31. Time: 11:02 Reevaluation #2: CT the abdomen pelvis rib feels interval development of both the hepatic metastatic disease with the largest measuring 10 X 9 cm, gastric mass appears larger around 5 cm no evidence of bowel obstruction. CT of the chest reveals no intrathoracic metastasis no hilar mediastinal mass and no evidence of effusion. Spoke with patients oncologist Dr. Conroy, will advise patient of updated CT findings. If patient is comfortable with plan he could be discharged home with analgesics, outpatient follow-up with oncology. She will try in come down to speak with patient today if he would prefer that. Time: 13:02 Reevaluation #3: Patient declines wanting to wait in the emergency department for Oncology, he has chemotherapy scheduled in 5 days, I spoke with Dr. Conroy who will arrange to see him that day to discuss further treatment/prognosis. Will discharge patient home with a prescription for oxycodone for analgesia. Patient lives next door to his brother the knee multiple times daily, his brother agrees to check on him as I did mention that the medication may make drowsy. He tolerated morphine while in the emergency department with able to ambulate with a steady gait. Patient agreeable with plan of care for discharge home, stable upon discharge. MDM - Abdominal Pain Medical Records Attestation: I reviewed the patient's medical records. Lab Data Attestation: I reviewed the patient's lab results. Result diagrams: 07/10/22 09:17 07/10/22 09:17 Labs: Lab Results 07/10/22 07/10/22 07/10/22 Range/Units 09:17 09:17 09:17 WBC 18.3 H (4.8-10.8) X10*3/uL RBC 3.32 L (4.60-5.80) X10*6/uL Hgb 10.5 L (14.0-18.0) g/dl Hct 32.8 L (42.0-52.0) % MCV 98.8 H (80.0-98.0) fL MCH 31.6 (27.0-33.0) pg MCHC 32.0 (31.0-36.0) g/dl RDW 16.2 H (11.0-16.0) % Plt Count 221 (160-400) X10*3/uL MPV 10.4 (9.4-12.4) fL Immature Gran % (Auto) 2.0 H (0.0-0.4) % Neut % (Auto) 83.5 H (45-73) % Lymph % (Auto) 5.9 L (20-40) % [place] % (Auto) 7.8 (2-11) % Eos % (Auto) 0.4 (0-4) % Baso % (Auto) 0.4 (0-2) % Lymph # (Auto) 1.1 L (1.2-4.9) X10*3/uL [place] # (Auto) 1.4 H (0.1-1.2) X10*3/uL Eos # (Auto) 0.1 (0.0-0.4) X10*3/uL Baso # (Auto) 0.1 (0.0-0.2) X10*3/uL Abs Immat Gran (auto) 0.37 H (0.00-0.03) X10*3/uL Absolute Neuts (auto) 15.2 H (2.0-8.3) x10*3/uL Absolute Nucleated RBC 0.000 (0.0-0.012) X10*3/uL Nucleated RBC % (auto) 0.0 (0.0-0.2) /100WBC Sodium 138 (135-145) mmol/L Potassium 4.2 (3.3-5.1) mmol/L Chloride 100 (96-108) mmol/L Carbon Dioxide 28 (22-29) mmol/L Anion Gap 14 (12-20) BUN 13 (9-16) mg/dL Creatinine 0.74 (0.5-1.4) mg/dL Estim Creat Clear Calc 63.6 Estimated GFR > 60 Random Glucose 90 (60-115) mg/dL Lactic Acid (0.5-2.0) mmol/L Calcium 8.7 (8.4-10.2) mg/dL Magnesium 2.0 (1.6-2.6) mg/dL Total Bilirubin 1.0 (0.0-1.0) mg/dL AST 105 H (5-37) U/L ALT 36 (0-40) U/L Alkaline Phosphatase 441 H (39-117) U/L Troponin I High Sens < 3.5 (<3.5-35.0) ng/L Total Protein 7.0 (6.5-8.0) g/dL Albumin 3.3 L (3.5-5.0) g/dL Lipase 50 (8-78) U/L Urine Color Urine Appearance Urine pH (5.0-9.0) Ur Specific [place] (1.005-1.025) Urine Protein (Neg-Trace) mg/dL Urine Glucose (UA) (Negative) mg/dL Urine Ketones (Negative) mg/dL Urine Blood (Negative) Urine Nitrite (Negative) Ur Leukocyte Esterase (Negative) COVID-19 ([facility]) (Negative) COVID-19 Clin Com 07/10/22 07/10/22 07/10/22 Range/Units 09:17 09:17 12:32 WBC (4.8-10.8) X10*3/uL RBC (4.60-5.80) X10*6/uL Hgb (14.0-18.0) g/dl Hct (42.0-52.0) % MCV (80.0-98.0) fL MCH (27.0-33.0) pg MCHC (31.0-36.0) g/dl RDW (11.0-16.0) % Plt Count (160-400) X10*3/uL MPV (9.4-12.4) fL Immature Gran % (Auto) (0.0-0.4) % Neut % (Auto) (45-73) % Lymph % (Auto) (20-40) % [place] % (Auto) (2-11) % Eos % (Auto) (0-4) % Baso % (Auto) (0-2) % Lymph # (Auto) (1.2-4.9) X10*3/uL [place] # (Auto) (0.1-1.2) X10*3/uL Eos # (Auto) (0.0-0.4) X10*3/uL Baso # (Auto) (0.0-0.2) X10*3/uL Abs Immat Gran (auto) (0.00-0.03) X10*3/uL Absolute Neuts (auto) (2.0-8.3) x10*3/uL Absolute Nucleated RBC (0.0-0.012) X10*3/uL Nucleated RBC % (auto) (0.0-0.2) /100WBC Sodium (135-145) mmol/L Potassium (3.3-5.1) mmol/L Chloride (96-108) mmol/L Carbon Dioxide (22-29) mmol/L Anion Gap (12-20) BUN (9-16) mg/dL Creatinine (0.5-1.4) mg/dL Estim Creat Clear Calc Estimated GFR Random Glucose (60-115) mg/dL Lactic Acid 1.5 (0.5-2.0) mmol/L Calcium (8.4-10.2) mg/dL Magnesium (1.6-2.6) mg/dL Total Bilirubin (0.0-1.0) mg/dL AST (5-37) U/L ALT (0-40) U/L Alkaline Phosphatase (39-117) U/L Troponin I High Sens (<3.5-35.0) ng/L Total Protein (6.5-8.0) g/dL Albumin (3.5-5.0) g/dL Lipase (8-78) U/L Urine Color Dark Yellow Urine Appearance Clear Urine pH 6.0 (5.0-9.0) Ur Specific [place] 1.020 (1.005-1.025) Urine Protein Trace (Neg-Trace) mg/dL Urine Glucose (UA) Negative (Negative) mg/dL Urine Ketones Negative (Negative) mg/dL Urine Blood Negative (Negative) Urine Nitrite Negative (Negative) Ur Leukocyte Esterase Negative (Negative) COVID-19 ([facility]) Negative (Negative) COVID-19 Clin Com See Note ECG Data Attestation: I personally reviewed and interpreted this ECG as follows: ECG interpretation date: 07/10/22 Prior ECG tracings: available for review Interpretation: Rate: 60 Rhythm:? Normal sinus rhythm with incomplete right bundle-branch block [place]:? Normal Normal P waves.? Normal MICHELLE.?? Normal QRS complex.?? ST T wave :??No ST elevation, no ST depression, T-wave inversions in V1 and V2 seen previously July 2021 prior studies:? August 2021 incomplete right bundle-branch block noted previously The study has been interpreted contemporaneously by me. Discharge Plan Discharge Clinical Impression: Hepatic metastasis Patient Disposition: Home, Self-Care Additional Instructions: As we discussed, the mass in your stomach has increased in size and there are areas your liver concerning for metastasis or spread of the cancer. I have spoken with Dr. Conroy in regards to this. You are to follow-up outpatient and continue chemotherapy as scheduled. You have been given a new prescription for oxycodone to use every 6 hours as needed for pain. This is a narcotic medication. It may be addictive. It can also make you drowsy. Please do not drive a vehicle, drink alcohol while taking this medication. Please speak with your brother as he lives very close to you, and assure that he is able to touch base with you a few times a day because again the medication can make you drowsy. Prescriptions: New oxycodone 5 mg tablet 5 mg PO Q6H PRN (Reason: pain) Qty: 18 0RF Rx Instructions: Partial Fill upon patient request. No Action amlodipine 5 mg tablet 5 mg PO DAILY Qty: 90 4RF ondansetron 8 mg Tablet,Disintegrating 8 mg PO Q8H Qty: 60 4RF polyethylene glycol 3350 [Miralax] 17 gram/dose Powder 17 g PO DAILY Magic Mouthwash Diphen/Lido/Antacid 1:1:1 240 mL Suspension 10 ml PO QID Qty: 240 4RF Rx Instructions: Lidocaine Viscous 2 % 80mL; diphenhydramine 12.5 mg/5 mL 80mL; aluminum-mag hydrox-simeth [id number]/5mL 80mL vitamin B complex Capsule 1 cap PO DAILY duloxetine 20 mg Capsule,Delayed Release(Dr/Ec) 20 mg PO BID Qty: 60 4RF Referrals: Tiara Conroy MD [Physician] - Interventions: ED Discharge Assessment Last Done: 07/10/22 15:13 Discharge Date/Time: 07/10/22 15:15
[2022-07-10 08:30] VITALS: BP 134/51; PULSE 61; RESP 16; TEMP 36.6; O2SAT 97; BMI 16.9
--- NOTE | 2022-07-10 08:45 | ECG_ITS ---
Test Reason : abd pain Blood Pressure : / mmHG Vent. Rate : 060 BPM Atrial Rate : 060 BPM P-R Int : 128 ms QRS Dur : 100 ms QT Int : 430 ms P-R-T Axes : 062 060 060 degrees QTc Int : 430 ms Normal sinus rhythm Possible Left atrial enlargement Incomplete right bundle branch block Borderline ECG When compared with ECG of 31-AUG-2021 13:28, Premature atrial complexes are no longer Present Vent. rate has decreased BY 35 BPM Incomplete right bundle branch block is now Present Referred By: Jennifer Carroll Electronically Signed By:BJORN GONZALEZ MD
[2022-07-10 09:25] LABS: MANUAL DIFF FLAG NO
[2022-07-10 09:27] LABS: Basophils Absolute Auto 0.1 X10*3/uL (0.0-0.2); Basophils Percent Auto 0.4 % (0-2); Eosinophils Absolute Auto 0.1 X10*3/uL (0.0-0.4); Eosinophils Percent Auto 0.4 % (0-4); Hematocrit 32.8 % (42.0-52.0); Hemoglobin 10.5 g/dl (14.0-18.0); Imm Gran Abs Auto 0.37 X10*3/uL (0.00-0.03); Lymphocytes Absolute Auto 1.1 X10*3/uL (1.2-4.9); Lymphocytes Percent Auto 5.9 % (20-40); Mean Corpuscular Hemoglobin 31.6 pg (27.0-33.0); Mean Corpuscular Volume 98.8 fL (80.0-98.0); Mean Platelet Volume 10.4 fL (9.4-12.4); Monocytes Absolute Auto 1.4 X10*3/uL (0.1-1.2); Monocytes Percent Auto 7.8 % (2-11); Neutrophils Absolute Auto 15.2 x10*3/uL (2.0-8.3); Neutrophils Percent Auto 83.5 % (45-73); Platelet Count 221 X10*3/uL (160-400); Red Blood Count 3.32 X10*6/uL (4.60-5.80); Red Cell Distribution Width 16.2 % (11.0-16.0); White Blood Count 18.3 X10*3/uL (4.8-10.8)
[2022-07-10 09:39] LABS: Lactic Acid 1.5 mmol/L (0.5-2.0)
[2022-07-10 09:53] LABS: Troponin-I High Sensitivity < 3.5 ng/L (<3.5-35.0)
[2022-07-10 09:54] LABS: Alanine Aminotransferase 36 U/L (0-40); Albumin Level 3.3 g/dL (3.5-5.0); Alkaline Phosphatase 441 U/L (39-117); Anion Gap 14 (12-20); Aspartate Amino Transferase 105 U/L (5-37); Blood Urea Nitrogen 13 mg/dL (9-16); Calcium 8.7 mg/dL (8.4-10.2); Carbon Dioxide 28 mmol/L (22-29); Chloride 100 mmol/L (96-108); Creatinine Clr Calc Pharmacy 63.6; Estimated Glomerular Filt Rate > 60; Glucose Random 90 mg/dL (60-115); Lipase 50 U/L (8-78); Potassium 4.2 mmol/L (3.3-5.1); Sodium 138 mmol/L (135-145)
[2022-07-10 10:04] LABS: COVID-19 Test Negative (Negative); IDNOW Serial# 16C4AD1C
[2022-07-10] MEDS: ondansetron HCL 4 MG/2 ML VIAL IVPUSH (11:13)
[2022-07-10] MEDS: Morphine Sulfate 4 MG/ML CARTRIDGE IVPUSH (11:13)
[2022-07-10 12:08] VITALS: BP 144/70; PULSE 58; RESP 12; TEMP 36.9; O2SAT 97
[2022-07-10 13:18] LABS: Appearance Urine Clear; Color Urine Dark Yellow; Glucose Urine UA Negative (Negative); Leukocyte Esterase Urine Negative (Negative); Nitrite Urine Negative (Negative); Urine Blood Negative (Negative); Urine Ketones Negative (Negative); Urine Protein Trace mg/dL (Neg-Trace)
== END 2022-07-10 15:15 | disposition home or self-care (01) ==
PROVIDERS: Nurse Practitioner Family; Emergency Provider Emergency Medicine; PCP Internal Medicine
DX: R10.9 Unspecified abdominal pain (principal); M54.50 Low back pain, unspecified; Z20.822 Contact with and (suspected) exposure to COVID-19; Z79.899 Other long term (current) drug therapy; Z87.891 Personal history of nicotine dependence
CPT/HCPCS: 36415; 80053; 81003; 83605; 83690; 83735; 84484; 85025; 87040; 87635; 93005; 96374; 96375; 99284; J1642; J2270; J2405

== ENCOUNTER 2022-07-15 05:58 | Outpatient (REF) | payer MEDICARE, MEDICAID, SELFPAY ==
[2022-07-14 11:32] LABS: Basophils Absolute Auto 0.1 X10*3/uL (0.0-0.2); Basophils Percent Auto 0.4 % (0-2); Eosinophils Percent Auto 0.2 % (0-4); Hematocrit 32.2 % (42.0-52.0); Hemoglobin 10.5 g/dl (14.0-18.0); Imm Gran Pct Auto 1.2 % (0.0-0.4); Lymphocytes Absolute Auto 0.9 X10*3/uL (1.2-4.9); Lymphocytes Percent Auto 5.2 % (20-40); MANUAL DIFF FLAG SCAN; Mean Corpuscular HGB Conc 32.6 g/dl (31.0-36.0); Mean Corpuscular Hemoglobin 32.3 pg (27.0-33.0); Mean Corpuscular Volume 99.1 fL (80.0-98.0); Mean Platelet Volume 10.7 fL (9.4-12.4); Monocytes Absolute Auto 2.4 X10*3/uL (0.1-1.2); Monocytes Percent Auto 13.9 % (2-11); Neutrophils Absolute Auto 13.5 x10*3/uL (2.0-8.3); Neutrophils Percent Auto 79.1 % (45-73); Platelet Count 316 X10*3/uL (160-400); Red Blood Count 3.25 X10*6/uL (4.60-5.80); Red Cell Distribution Width 15.8 % (11.0-16.0); SCAN SMEAR FLAG 1
[2022-07-14 12:04] LABS: SLIDE REVIEW VERIFIED
[2022-07-14 12:46] LABS: Alanine Aminotransferase 32 U/L (0-40); Albumin Level 3.3 g/dL (3.5-5.0); Alkaline Phosphatase 437 U/L (39-117); Anion Gap 16 (12-20); Aspartate Amino Transferase 80 U/L (5-37); Bilirubin Total 1.7 mg/dL (0.0-1.0); Blood Urea Nitrogen 17 mg/dL (9-16); Calcium 9.1 mg/dL (8.4-10.2); Carbon Dioxide 28 mmol/L (22-29); Chloride 96 mmol/L (96-108); Estimated Glomerular Filt Rate > 60; Glucose Random 89 mg/dL (60-115); Potassium 4.3 mmol/L (3.3-5.1); Sodium 136 mmol/L (135-145); Total Protein 7.3 g/dL (6.5-8.0)
[2022-07-16 04:18] LABS: HBS Num1 0.67 mIU/mL (0-7.99); HBc Num1 0.12 S/CO (0.00-0.79); HBsAGNum1 0.22 S/CO (0.00-0.99); Hepatitis B Core Antibody Nonreactive (Nonreactive); Hepatitis B Surface Antigen Negative (Negative); ~HepC Num1 0.16 S/CO (0.00-0.79); ~Hepatitis B Surface Antibody NONREACTIVE (Nonreactive); ~Hepatitis C Antibody Nonreactive (Nonreactive)
== END 2022-07-15 05:59 | disposition home or self-care (01) ==
LOC: HO.LHD 05:58
PROVIDERS: Visit Provider Internal Medicine Medical Oncology
DX: C16.9 Malignant neoplasm of stomach, unspecified (principal)
CPT/HCPCS: 36415; 80053; 85025; 86704; 86706; 86803; 87340

== ENCOUNTER 2022-08-04 05:50 | Outpatient (REF) | payer MEDICARE, MEDICAID, SELFPAY ==
[2022-08-04 09:56] LABS: MANUAL DIFF FLAG NO
[2022-08-04 09:58] LABS: Basophils Percent Auto 0.4 % (0-2); Eosinophils Absolute Auto 0.1 X10*3/uL (0.0-0.4); Eosinophils Percent Auto 1.6 % (0-4); Hematocrit 33.9 % (42.0-52.0); Hemoglobin 11.1 g/dl (14.0-18.0); Imm Gran Abs Auto 0.03 X10*3/uL (0.00-0.03); Imm Gran Pct Auto 0.4 % (0.0-0.4); Lymphocytes Absolute Auto 0.7 X10*3/uL (1.2-4.9); Lymphocytes Percent Auto 10.8 % (20-40); Mean Corpuscular HGB Conc 32.7 g/dl (31.0-36.0); Mean Corpuscular Hemoglobin 31.4 pg (27.0-33.0); Mean Platelet Volume 10.5 fL (9.4-12.4); Monocytes Absolute Auto 0.6 X10*3/uL (0.1-1.2); Monocytes Percent Auto 8.9 % (2-11); Neutrophils Absolute Auto 5.2 x10*3/uL (2.0-8.3); Neutrophils Percent Auto 77.9 % (45-73); Platelet Count 229 X10*3/uL (160-400); Red Blood Count 3.53 X10*6/uL (4.60-5.80); Red Cell Distribution Width 18.3 % (11.0-16.0); White Blood Count 6.7 X10*3/uL (4.8-10.8)
[2022-08-04 10:13] LABS: Alanine Aminotransferase 32 U/L (0-40); Albumin Level 2.2 g/dL (3.5-5.0); Alkaline Phosphatase 724 U/L (39-117); Anion Gap 13 (12-20); Aspartate Amino Transferase 160 U/L (5-37); Bilirubin Total 2.7 mg/dL (0.0-1.0); Blood Urea Nitrogen 20 mg/dL (9-16); Calcium 8.3 mg/dL (8.4-10.2); Carbon Dioxide 26 mmol/L (22-29); Chloride 98 mmol/L (96-108); Estimated Glomerular Filt Rate > 60; Glucose Random 77 mg/dL (60-115); Potassium 4.8 mmol/L (3.3-5.1); Sodium 132 mmol/L (135-145); Total Protein 6.6 g/dL (6.5-8.0)
== END 2022-08-04 05:51 | disposition home or self-care (01) ==
LOC: HO.LHD 05:50
PROVIDERS: Visit Provider Internal Medicine Medical Oncology
DX: Z00.00 Encounter for general adult medical examination without abnormal findings (principal)
CPT/HCPCS: 36415; 80053; 85025

== ENCOUNTER 2022-08-07 15:00 | Outpatient (RCR) | payer MEDICARE, MEDICAID, OTHER, SELFPAY ==
[2021-09-30 14:10] VITALS: BP 130/71; PULSE 80; RESP 18; TEMP 37; O2SAT 99; BMI 18.3
--- NOTE | 2021-09-30 14:21 | PM.HEMONCPN ---
Medical Summary - Medical Summary Date of Service: 09/30/21 Chief complaint: FOLLOW-UP FOR: GASTRIC CARCINOMA. Medical Summary: DIAGNOSIS: GASTRIC CARCINOMA. STAGE IV DISEASE. Interval History Interval history: Jeffrey Schilling is a 81 year old gentleman, who was admitted to the hospital back in July with abdominal pain. He presented on 08/15/2021 to the emergency department with complaints of persistent nausea and vomiting. He reported initial symptoms of acid reflux and has been taking [id number] Zantac which was not helping. He denied fever, chills, but does report constipation. He has been taking Ex-Lax at home without significant improvement. Upon presentation to the emergency department a CT of the abdomen and pelvis revealed a dilated stomach secondary to obstructive abnormality at the antrum where there was circumferential and irregular thickening of the gastric antrum and a 1.9 cm necrotic node beneath the duodenum, worrisome for underlying neoplasm. He subsequently underwent an EGD 08/15. Findings included an ulcerated mass at the gastric outlet. Biopsies were taken. The scope was able to be manipulated through the strictured mass. Results of the biopsy are pending at this time. Surgical consultation was requested for possible partial gastrectomy. He appears cachectic but denies weight loss. Patient underwent the surgery on 08/26. 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 So surgery could not be performed. 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 He is status post gastrojejunostomy.? He developed fever/rigors over last weekend and underwent work up which was negative. Started on IV zosyn empirically. Blood cultures positive for GNR bacteria: serratia Marsenscans. Symptoms resolved. He remained afebrile >24h. White blood count: normal. Continue IV zosyn. Obtain ID consult re: GNR bacteremia and antibiotic recommendations. <Aliza Perdue PA-C - CT chest and abdomen/pelvis: No evidence of anastomotic leak or abscess. Agree with ID consultation. He was sent home on antibiotics. Family history: Mom had skin cancer. She lived to be 100 years old. 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 He currently resides in senior housing project in an apartment. His brother is his neighbor. He is not . He has no children. He smoked a pack-a-day. Drank socially. ROS: He does feel rather fatigued. No fever nor chills. His appetite had been low initially. He lost about 18 lb. Now it is picking up and his weight is up by couple lbs. He denies headache no dizziness. No chest pain or trouble breathing. Denies abdominal pain nausea or vomiting. No heartburn indigestion. He did have constipation. He was prescribed Colace. Now the stool is formed. Denies gross blood in the stools. Denies dysuria or hematuria. He has to get up 2-3 times at night. He denies any joint pain or muscle pain. No focal weakness. Denies depression. No skin rashes or pruritus. Review of Systems - Constitutional Reports system reviewed and no additional complaints, except as documented, Reports lack of energy, Reports malaise, Reports weight loss - Eyes Reports system reviewed and no additional complaints, except as documented - ENT Reports system reviewed and no additional complaints, except as documented - Cardiovascular Reports system reviewed and no additional complaints, except as documented - Respiratory Reports no additional respiratory complaints - Gastrointestinal Reports system reviewed and no additional complaints, except as documented - Genitourinary Genitourinary: Reports no additional male genitourinary complaints - Musculoskeletal Reports system reviewed and no additional complaints, except as documented - Integumentary/Breasts Skin/Breast: Reports no additional skin complaints - Neurologic Reports system reviewed and no additional complaints, except as documented - Psychiatric Reports system reviewed and no additional complaints, except as documented - Endocrine Reports no additional endocrine complaints - Hematologic/Lymphatic Reports system reviewed and no additional complaints, except as documented - Allergic/Immunologic Reports system reviewed and no additional complaints, except as documented COUNTS INCLUDE 234 BEDS AT THE [facility] Medical History: Medical History (Last Updated 09/30/21 @ 14:17 by Gagan Doll RN) Bacteremia Hypertension Vertigo Functional capacity: uses cane/walker Family History: Family History (Last Reviewed 09/30/21 @ 14:21 by Gagan Doll RN) Father Past heart attack Mother Past heart attack Surgical History: Surgical History (Last Reviewed 09/30/21 @ 14:21 by Gagan Doll RN) History of appendectomy Social History: Social History (Last Reviewed 09/30/21 @ 14:21 by Gagan Doll RN) Living Situation History: Household Members: None Housing: Apartment Do you presently have visiting nurse or other home services: No Tobacco History: Patient Tobacco Use Status: Former Tobacco user Tobacco use type: Cigarette Years Smoked: 30 Smoke Quit Date: quit 26 yr ago e-Cigarette/Vaping Use: Never Used Second Hand Smoke Exposure: No 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 occupational status: retired Oncology Screenings - ECOG Performance Status ECOG Performance Status: 1 Home Medications and Allergies Allergies Allergy/AdvReac Type Severity Reaction Status Date / Time No Known Allergies Allergy Verified 09/30/21 14:18 [No Known Allergies*] Exam Vital signs: Vital Signs Temp 98.6 F 09/30/21 14:10 Pulse 80 09/30/21 14:10 Resp 18 09/30/21 14:10 BP 130/71 09/30/21 14:10 Pulse Ox 99 09/30/21 14:10 Intake & Output 09/29/21 09/30/21 09/30/21 18:59 06:59 18:59 Other: Weight 61.5 kg Weight in Grams 82418 Weight 61.5 kg BMI result Body Mass Index 18.3 - Constitutional Present: no acute distress - Routine HEENT Exam Head: Present: normal inspection Eye: Present: normal appearance ENT: Present: mucous membranes moist - Routine Neck Exam Present: full ROM - Routine Respiratory Exam Present: CTAB - Routine Cardiovascular Exam Cardiovascular: Present: RRR, S1, S2 - Routine Abdominal Exam Present: soft, nontender - Routine Extremities Exam Present: nontender - Routine Back/Spine/Pelvis Exam Back/Spine: Present: full ROM - Routine Skin Exam Present: intact - Routine Neurological Exam Present: alert, oriented X3 - Routine Psychiatric Exam Present: normal affect Data - Labs CBC & Chem 7: 09/30/21 15:11 09/30/21 15:11 Assessment and Plan Patient Active problem list reviewed?: Yes (1) Gastric adenocarcinoma Status: Acute Assessment and plan: 81 year old gentleman with gastric outlet obstruction. EGD showed a gastric mass. 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 I recommended Pre-op chemotherapy, followed by surgery if feasible. Patient was evaluated by general surgery and GI. They recommended to proceed with surgical resection. He underwent the surgery on 08/26. 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 So surgery could not be performed. 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 He is status post gastrojejunostomy.? Hospital course was complicated rather development of fever/rigors. He underwent work up which was negative. He was started on IV zosyn empirically. Blood cultures positive for GNR bacteria: Serratia Marsenscans. Symptoms resolved. He remained afebrile >24h. White blood count: normal. Continue IV zosyn. Obtain ID consult re: GNR bacteremia and antibiotic recommendations. CT chest and abdomen/pelvis: No evidence of anastomotic leak or abscess. He was sent home on antibiotics. He is now here for a follow-up visit. He has HER2 positive disease. Will check PDL1, and MSI. Since he has stage IV disease the plan is to treat him with palliative systemic chemotherapy: FOLFOX plus trastuzumab. PLAN: He is scheduled for a PET scan for staging, next Sunday 10/01. He will return after that for chemotherapy teaching. He will have a Port-A-Cath placed, and then get started on treatment. He had baseline labs drawn today. He was given a prescription for Ensure, by Dr. Corbett. He met with navigator. He has issues with transportation. Arrangements are being made, to help him with that. All his questions were answered to his satisfaction. He will return in a couple of weeks for a follow-up. Thank you, CC: Dr. Corbett. Dr. Brush. - Time Spent With Patient Time Spent with Patient (in minutes): 35
[2021-09-30 15:30] LABS: MANUAL DIFF FLAG NO
[2021-09-30 15:34] LABS: Basophils Percent Auto 0.6 % (0-2); Eosinophils Absolute Auto 0.1 X10*3/uL (0.0-0.4); Eosinophils Percent Auto 1.8 % (0-4); Hemoglobin 11.4 g/dl (14.0-18.0); Imm Gran Abs Auto 0.01 X10*3/uL (0.00-0.03); Imm Gran Pct Auto 0.2 % (0.0-0.4); Lymphocytes Absolute Auto 1.1 X10*3/uL (1.2-4.9); Lymphocytes Percent Auto 23.1 % (20-40); Mean Corpuscular HGB Conc 31.7 g/dl (31.0-36.0); Mean Corpuscular Hemoglobin 28.9 pg (27.0-33.0); Mean Corpuscular Volume 91.4 fL (80.0-98.0); Mean Platelet Volume 10.2 fL (9.4-12.4); Monocytes Absolute Auto 0.6 X10*3/uL (0.1-1.2); Monocytes Percent Auto 11.3 % (2-11); Neutrophils Absolute Auto 3.1 x10*3/uL (2.0-8.3); Platelet Count 292 X10*3/uL (160-400); Red Blood Count 3.94 X10*6/uL (4.60-5.80); Red Cell Distribution Width 13.1 % (11.0-16.0); White Blood Count 4.9 X10*3/uL (4.8-10.8)
[2021-09-30 15:53] LABS: Alanine Aminotransferase 8 U/L (0-40); Albumin Level 3.8 g/dL (3.5-5.0); Alkaline Phosphatase 93 U/L (39-117); Anion Gap 8 (12-20); Aspartate Amino Transferase 19 U/L (5-37); Bilirubin Total < 0.2 mg/dL (0.0-1.0); Blood Urea Nitrogen 14 mg/dL (9-16); Calcium 9.5 mg/dL (8.4-10.2); Carbon Dioxide 31 mmol/L (22-29); Chloride 106 mmol/L (96-108); Creatinine Clr Calc Pharmacy 65.1; Estimated Glomerular Filt Rate > 60; Glucose Random 90 mg/dL (60-115); Potassium 4.3 mmol/L (3.3-5.1); Sodium 141 mmol/L (135-145); Total Protein 6.6 g/dL (6.5-8.0)
--- NOTE | 2021-09-30 16:20 | MHC.HEMONC ---
Spoke with Anette PALOMINO/ Meredith regarding pt arriving for his PET scan at 9:30am instead of originally scheduled at 9:15am. Merdeith okayed time change to 9:30am.
--- NOTE | 2021-09-30 16:50 | MHC.HEMONC ---
Pt arrived in good [place] [facility] Consult, VSS, clinical summary updated. Pt has hx of bacteremia and HTN, referred for gastric tumor, s/p ex lap, found tumor invading pancreas and transverse colon. Pt reported he has no symptoms, was having constipation, but Dr. Brush gave him some colace, and now his stools are soft/formed, light brown. Pt was educated to look for dark brown or black stools as potential sign of GI bleeding. Pt said he has a PET scan scheduled for next , but he needs transportation. Nurse Zeeshan Ya met w/ pt, who stated he lives w/ his brother and is no longer able to use his car. Dr. Conroy met w/ pt, who is supposed to start chemo tx, but will need implanted port and chemo teach, team discussed his lack of transportation in the future. Nurse printed teaching info, per Dr. Conroy's request, for Herceptin, Oxaliplatin, Leucovorin, and Fluorocil. Judith consulted w/ Kaykay from transportation, was able to arrange a cotton picker operator for pt for this coming Thu at 09:00 for PET scan, then a p/u at 12:00 pm on 10/14/21 for pt's Hem f/u appt. Dr. Conroy also ordered pt to have port implanted, printed order presented to [facility] for entry into order spa manager. Pt was d/c[place] [facility] [place] met Kaykay, who drove him home.
--- NOTE | 2021-10-04 13:44 | MHC.HEMONC ---
Pt transportation to [facility] for PET/CT scan 10/08/21- 9am to 9:30am & 10/14/21- 12:00pm confirmed with Carly(Marine Architect) [facility] shuttle transportation.
[2021-10-08 13:16] VITALS: BP 144/77; PULSE 74; RESP 18; TEMP 36.9; O2SAT 98; BMI 18.0
--- NOTE | 2021-10-08 17:10 | MHC.HEMONC ---
Pt came in for education today re: treatment with Herceptin/FOLFOX. We reviewed the plan including need for port (scheduled for this ) and echo (date ). I gave him education papers from [place] re: side effects and I told him about most common ones, lowered blood counts, cardiotoxicity, N/V, diarrhea, mouth sores, neuropathy and cold intolerance. He was able to engage in teaching and asked questions. He signed consent. Plan is to start next Thursday if we can get echo prior. Right now he has transportation issues and Hospital transportation is assisting with that.
--- NOTE | 2021-10-09 11:06 | MHC.HEMONC ---
Echo to be done Thursday the at 1 pm after her appt here.
--- NOTE | 2021-10-09 11:36 | HO.HEMONCPA ---
NO PA REQUIRED FOR EMEND, HERCEPTIN, OXALIPLATIN,& FLUOROURACIL. DRUGS COVERED UNDER MEDICARE B BENEFITS.
--- NOTE | 2021-10-14 11:26 | HE.ONCSEC ---
INFORMED PATIENT THAT WE NEED HIS HEALTH SAFETY NET INSURANCE CARD , HE STATES HE DOESN'T HAVE THAT INSURANCE AND DOESN'T KNOW WHY OUR SYSTEM HAS HEALTH SAFETY NET AN OPTION ONE OF HIS INSURANCE CARDS.
[2021-10-14 11:46] LABS: Basophils Absolute Auto 0.1 X10*3/uL (0.0-0.2); Basophils Percent Auto 0.8 % (0-2); Eosinophils Absolute Auto 0.1 X10*3/uL (0.0-0.4); Eosinophils Percent Auto 2.3 % (0-4); Hematocrit 35.6 % (42.0-52.0); Hemoglobin 11.2 g/dl (14.0-18.0); Imm Gran Abs Auto 0.02 X10*3/uL (0.00-0.03); Imm Gran Pct Auto 0.3 % (0.0-0.4); Lymphocytes Absolute Auto 1.3 X10*3/uL (1.2-4.9); Lymphocytes Percent Auto 20.4 % (20-40); MANUAL DIFF FLAG NO; Mean Corpuscular HGB Conc 31.5 g/dl (31.0-36.0); Mean Corpuscular Hemoglobin 28.5 pg (27.0-33.0); Mean Corpuscular Volume 90.6 fL (80.0-98.0); Mean Platelet Volume 10.6 fL (9.4-12.4); Monocytes Absolute Auto 0.8 X10*3/uL (0.1-1.2); Monocytes Percent Auto 12.7 % (2-11); Neutrophils Percent Auto 63.5 % (45-73); Platelet Count 317 X10*3/uL (160-400); Red Blood Count 3.93 X10*6/uL (4.60-5.80); Red Cell Distribution Width 13.3 % (11.0-16.0); White Blood Count 6.2 X10*3/uL (4.8-10.8)
[2021-10-14 11:56] VITALS: BP 143/71; PULSE 74; RESP 18; TEMP 36.9; O2SAT 96
--- NOTE | 2021-10-14 12:06 | P.PNHO_ITS ---
Medical Summary - Medical Summary Date of Service: 10/14/21 Chief complaint: Follow-up for: Gastric carcinoma. Medical Summary: DIAGNOSIS: GASTRIC CARCINOMA. STAGE IV DISEASE. CURRENT THERAPY: TO START FOLFOX PLUS HERCEPTIN TOMORROW. Interval History Interval history: Jeffrey Schilling is a 81 year old gentleman, here for a follow-up visit. Overall he says he is stable. Denies abdominal pain, however sometimes the surgical scar, itches. He denies heartburn. No nausea or vomiting. Sometimes he has to get up and burps, when he lays on his left side. He noted initially that his bowels was soft. He did not go for 3 days. He was prescribed Colace. He went a little bit today. Stool was hard. He denies gross blood in the stools. He does feel rather fatigued. No fever nor chills. His appetite had been low initially. He lost about 18 lb. Now it is picking up and he has gained some weight, 2 - 3 lb. He denies headache no dizziness. He occasionally gets pain under his ribcage. No chest pain or trouble breathing. Denies dysuria or hematuria. He has to get up 2-3 times at night. He denies any joint pain or muscle pain. No focal weakness. Denies depression. No skin rashes or pruritus. Previous history: He was admitted to the hospital back in July with abdominal pain. He presented on 08/15/2021 to the emergency department with complaints of persistent nausea and vomiting. He reported initial symptoms of acid reflux and has been taking [id number] Zantac which was not helping. He denied fever, chills, but does report constipation. He has been taking Ex-Lax at home without significant improvement. Upon presentation to the emergency department a CT of the abdomen and pelvis revealed a dilated stomach secondary to obstructive abnormality at the antrum where there was circumferential and irregular thickening of the gastric antrum and a 1.9 cm necrotic node beneath the duodenum, worrisome for underlying neoplasm. He subsequently underwent an EGD 08/15. Findings included an ulcerated mass at the gastric outlet. Biopsies were taken. The scope was able to be manipulated through the strictured mass. Results of the biopsy are pending at this time. Surgical consultation was requested for possible partial gastrectomy. He appears cachectic but denies weight loss. Patient underwent the surgery on 08/26. 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 So surgery could not be performed. 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 He is status post gastrojejunostomy.? He developed fever/rigors over last weekend and underwent work up which was negative. Started on IV zosyn empirically. Blood cultures positive for GNR bacteria: serratia Marsenscans. Symptoms resolved. He remained afebrile >24h. White blood count: normal. Continue IV zosyn. Obtain ID consult re: GNR bacteremia and antibiotic recommendations. <Aliza mg PA-C - CT chest and abdomen/pelvis: No evidence of anastomotic leak or abscess. Agree with ID consultation. He was sent home on antibiotics. Family history: Mom had skin cancer. She lived to be 100 years old. 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 He currently resides in [employer] housing project in an apartment. His brother is his neighbor. He is not . He has no children. He smoked a pack-a-day. Drank socially. Review of Systems - Constitutional Reports no additional constitutional complaints, Reports lack of energy, Reports weight gain - Eyes Reports no additional eye complaints - ENT Reports no additional ear, nose, mouth, and throat complaints - Cardiovascular Reports no additional cardiovascular complaints Comments: Pain in his ribs - Respiratory Reports no additional respiratory complaints - Gastrointestinal Reports no additional gastrointestinal complaints, Reports constipation, Reports dyspepsia Comments: Burping at night. - Genitourinary Genitourinary: Reports no additional male genitourinary complaints - Musculoskeletal Reports no additional musculoskeletal complaints - Integumentary/Breasts Skin/Breast: Reports no additional skin complaints - Neurologic Reports no additional neurologic complaints - Psychiatric Reports no additional psychiatric complaints - Endocrine Reports no additional endocrine complaints - Hematologic/Lymphatic Reports no additional hematologic/lymphatic complaints - Allergic/Immunologic Reports no additional allergic/immunologic complaints [facility] Medical History: Medical History (Last Reviewed 10/14/21 @ 12:00 by Gagan Doll RN) Bacteremia Hypertension Vertigo Functional capacity: independent ambulation Patient : No Family History: Family History (Last Reviewed 10/14/21 @ 12:00 by Gagan Doll RN) Father Past heart attack Mother Past heart attack Surgical History: Surgical History (Last Reviewed 10/14/21 @ 12:00 by Gagan Doll RN) H/O bypass gastrojejunostomy History of appendectomy Social History: Social History (Last Reviewed 10/14/21 @ 12:00 by Gagan Doll RN) Living Situation History: Household Members: None Housing: Apartment Do you presently have visiting nurse or other home services: No Tobacco History: Patient Tobacco Use Status: Former Tobacco user Tobacco use type: Cigarette Years Smoked: 30 Smoke Quit Date: quit 26 yr ago e-Cigarette/Vaping Use: Never Used Second Hand Smoke Exposure: No 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 occupational status: retired Oncology Screenings - ECOG Performance Status ECOG Performance Status: 0 Home Medications and Allergies Allergies Allergy/AdvReac Type Severity Reaction Status Date / Time No Known Allergies Allergy Verified 10/14/21 12:00 [No Known Allergies*] Exam Vital signs: Vital Signs Temp 98.4 F 10/14/21 11:56 Pulse 74 10/14/21 11:56 Resp 18 10/14/21 11:56 BP 143/71 H 10/14/21 11:56 Pulse Ox 96 10/14/21 11:56 Weight 60.4 kg BMI result Body Mass Index 18.0 - Constitutional Present: no acute distress - Routine HEENT Exam Head: Present: normal inspection Eye: Present: normal appearance ENT: Present: mucous membranes moist - Routine Neck Exam Present: full ROM - Routine Respiratory Exam Present: CTAB - Routine Cardiovascular Exam Cardiovascular: Present: RRR, S1, S2 - Routine Abdominal Exam Present: soft, nontender - Routine Extremities Exam Present: nontender - Routine Back/Spine/Pelvis Exam Back/Spine: Present: full ROM - Routine Skin Exam Present: intact - Routine Neurological Exam Present: alert, oriented X3 - Routine Psychiatric Exam Present: normal affect Data - Labs CBC & Chem 7: 10/14/21 11:30 10/14/21 Unknown Labs: 09/30/21 15:11 Type and Screen Routine Carcinoembryonic Antigen Routine Complete Blood Count Auto Diff Stat Comprehensive Met. Panel Stat 10/03/21 13:14 PD-L1 Non-Lung P[place]bro Routine Laboratory Last Values WBC 4.9 X10*3/uL (4.8-10.8) 09/30/21 15:11 RBC 3.94 X10*6/uL (4.60-5.80) L 09/30/21 15:11 Hgb 11.4 g/dl (14.0-18.0) L 09/30/21 15:11 Hct 36.0 % (42.0-52.0) L 09/30/21 15:11 MCV 91.4 fL (80.0-98.0) 09/30/21 15:11 MCH 28.9 pg (27.0-33.0) 09/30/21 15:11 MCHC 31.7 g/dl (31.0-36.0) 09/30/21 15:11 RDW 13.1 % (11.0-16.0) 09/30/21 15:11 Plt Count 292 X10*3/uL (160-400) 09/30/21 15:11 MPV 10.2 fL (9.4-12.4) 09/30/21 15:11 Immature Gran % (Auto) 0.2 % (0.0-0.4) 09/30/21 15:11 Neut % (Auto) 63.0 % (45-73) 09/30/21 15:11 Lymph % (Auto) 23.1 % (20-40) 09/30/21 15:11 [place] % (Auto) 11.3 % (2-11) H 09/30/21 15:11 Eos % (Auto) 1.8 % (0-4) 09/30/21 15:11 Baso % (Auto) 0.6 % (0-2) 09/30/21 15:11 Lymph # (Auto) 1.1 X10*3/uL (1.2-4.9) L 09/30/21 15:11 [place] # (Auto) 0.6 X10*3/uL (0.1-1.2) 09/30/21 15:11 Eos # (Auto) 0.1 X10*3/uL (0.0-0.4) 09/30/21 15:11 Baso # (Auto) 0.0 X10*3/uL (0.0-0.2) 09/30/21 15:11 Abs Immat Gran (auto) 0.01 X10*3/uL (0.00-0.03) 09/30/21 15:11 Absolute Neuts (auto) 3.1 x10*3/uL (2.0-8.3) 09/30/21 15:11 Absolute Nucleated RBC 0.000 X10*3/uL (0.0-0.012) 09/30/21 15:11 Nucleated RBC % (auto) 0.0 /100WBC (0.0-0.2) 09/30/21 15:11 Sodium 141 mmol/L (135-145) 09/30/21 15:11 Potassium 4.3 mmol/L (3.3-5.1) 09/30/21 15:11 Chloride 106 mmol/L (96-108) 09/30/21 15:11 Carbon Dioxide 31 mmol/L (22-29) H 09/30/21 15:11 Anion Gap 8 (12-20) L 09/30/21 15:11 BUN 14 mg/dL (9-16) 09/30/21 15:11 Creatinine 0.80 mg/dL (0.5-1.4) 09/30/21 15:11 Estim Creat Clear Calc 65.1 09/30/21 15:11 Estimated GFR > 60 09/30/21 15:11 Random Glucose 90 mg/dL (60-115) 09/30/21 15:11 Calcium 9.5 mg/dL (8.4-10.2) D 09/30/21 15:11 Total Bilirubin < 0.2 mg/dL (0.0-1.0) 09/30/21 15:11 AST 19 U/L (5-37) 09/30/21 15:11 ALT 8 U/L (0-40) 09/30/21 15:11 Alkaline Phosphatase 93 U/L (39-117) D 09/30/21 15:11 Total Protein 6.6 g/dL (6.5-8.0) D 09/30/21 15:11 Albumin 3.8 g/dL (3.5-5.0) D 09/30/21 15:11 Carcinoembryonic Ag 153.20 ng/mL D 09/30/21 15:11 PD-L1 Result See Note 10/03/21 13:14 Blood Type B Positive 09/30/21 15:11 Antibody Screen NEGATIVE 09/30/21 15:11 Assessment and Plan Patient Active problem list reviewed?: Yes (1) Gastric adenocarcinoma Status: Acute Assessment and plan: 81 year old gentleman with gastric outlet obstruction. EGD showed a gastric mass. 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 I recommended Pre-op chemotherapy, followed by surgery if feasible. Patient was evaluated by general surgery and GI. They recommended to proceed with surgical resection. He underwent the surgery on 08/26. 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 So surgery could not be performed. 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 He is status post gastrojejunostomy.? Hospital course was complicated rather development of fever/rigors. He underwent work up which was negative. He was started on IV zosyn empirically. Blood cultures positive for GNR bacteria: Serratia Marsenscans. Symptoms resolved. He remained afebrile >24h. White blood count: normal. Continue IV zosyn. Obtain ID consult re: GNR bacteremia and antibiotic recommendations. CT chest and abdomen/pelvis: No evidence of anastomotic leak or abscess. He was sent home on antibiotics. He is now here for a follow-up visit. He has HER2 positive disease. l checked PDL1: 1. MSI. Since he has stage IV disease the plan is to treat him with palliative systemic chemotherapy: FOLFOX plus trastuzumab. He had a PET scan for staging, on Sunday 10/08: 1. An intensely FDG avid right upper quadrant mass is contiguous with intensely FDG avid wall thickening in the pyloric region of the distal stomach. This is most likely a primary malignancy. 2. Multiple FDG avid liver metastases are present. 3. No additional abnormalities suspicious for other metastatic or malignant lesions are noted. 4. Vascular calcifications including coronary are noted. He underwent chemotherapy teaching. Details of the regimen including potential side effects of nausea vomiting diarrhea, cold toxicity, peripheral neuropathy, renal toxicity, pancytopenia, need for antibiotics and blood transfusion as well as growth factors were all ad dressed with him. He understands and is willing to proceed. He has had a Port-A-Cath placed. He will get started on treatment, tomorrow. He had baseline labs drawn today. PLAN: He will undergo an EKG and cardiac echo today. He was given a prescription for Ensure, by Dr. Corbett. He had issues with transportation. Arrangements have been made, to help him with that. He will return tomorrow to get started on is treatment and in a couple of weeks for a follow-up. Will proceed with 3 cycles and then re-stage him with imaging. All his questions were answered to his satisfaction. Thank you, CC: Dr. Corbett. Dr. Brush. - Time Spent With Patient Time Spent with Patient (in minutes): 30
[2021-10-14 12:07] LABS: Alanine Aminotransferase 11 U/L (0-40); Albumin Level 3.8 g/dL (3.5-5.0); Alkaline Phosphatase 118 U/L (39-117); Anion Gap 12 (12-20); Aspartate Amino Transferase 26 U/L (5-37); Bilirubin Total 0.3 mg/dL (0.0-1.0); Blood Urea Nitrogen 13 mg/dL (9-16); Calcium 9.5 mg/dL (8.4-10.2); Carbon Dioxide 30 mmol/L (22-29); Chloride 105 mmol/L (96-108); Creatinine Clr Calc Pharmacy 60.9; Estimated Glomerular Filt Rate > 60; Glucose Random 109 mg/dL (60-115); Potassium 4.2 mmol/L (3.3-5.1); Sodium 143 mmol/L (135-145); Total Protein 6.6 g/dL (6.5-8.0)
[2021-10-14 14:31] LABS: HBS Num1 0.56 mIU/mL (0-7.99); HBc Num1 0.15 S/CO (0.00-0.79); HBsAGNum1 0.34 S/CO (0.00-0.99); Hepatitis B Core Antibody Nonreactive (Nonreactive); Hepatitis B Surface Antigen Negative (Negative); ~HepC Num1 0.11 S/CO (0.00-0.79); ~Hepatitis B Surface Antibody NONREACTIVE (Nonreactive); ~Hepatitis C Antibody Nonreactive (Nonreactive)
--- NOTE | 2021-10-14 17:13 | MHC.HEMONC ---
Pt arrived for sched Onc f/u, VSS, labs drawn/reviewed prior to start of chemo tomorrow, clinical summary reviewed. Pt said his implanted port surgery had gone well in R chest, said the site is itchy, but no other problems, sched to have his EKG echo later today, was satisfied meeting the previous week w/ Nurse Zeeshan Ya for chemo teach. Pt is glad that transportation accommodations have been made, getting [facility] shuttle ride for all appts. Pt asked about medications w/ chemo, nurse explained that pre-meds will be given w/ chemo, either IV or PO, to prevent common side effects such as nausea or loss of appetite, and some meds will be given to take home, and that this will be described in specific detail tomorrow during his chemo and before he goes home. Pt was appreciative, met w/ Dr. Conroy, who helped pt to find a lunch to eat prior to his echo. Pt was d/c'd, to return tomorrow morning for chemo start.
[2021-10-15 09:05] VITALS: BP 146/68; PULSE 61; RESP 20; TEMP 36.4; O2SAT 98; BMI 18.3
[2021-10-15] MEDS: Acetaminophen 325 MG TABLET 650 MG PO (09:33)
[2021-10-15] MEDS: diphenhydrAMINE HCL 50 MG/ML VIAL 25 MG IVPUSH (09:33)
[2021-10-15] MEDS: dexAMETHasone sod phosphate/NS 12 MG/50 ML PIGGYBACK 200 MG IV (09:34)
--- NOTE | 2021-10-15 11:57 | MHC.HEMONC ---
pt tolerated first treatment well, no s/s of reaction. howard set pt up with [facility] that delivers meds, transportation to appointments and home lab draws every thursday due pt not having a car.
[2021-10-15] MEDS: Leucovorin Calcium 700 MG in Dextrose 5 % 250 ML 142.5 MG IV (12:36)
[2021-10-15] MEDS: OXALIplatin 100 MG, OXALIplatin 50 MG in Dextrose 5 % 500 ML 265 MG IV (12:37)
[2021-10-15] MEDS: fluorouraciL 700 MG in Syringe, Disposable 0 ML IVPUSH (14:49)
[2021-10-15] MEDS: FLUOROURACIL IV (14:50)
[2021-10-15] MEDS: SODIUM CHLORIDE 0.9% IV (14:50)
--- NOTE | 2021-10-16 10:11 | MHC.HEMONC ---
I spoke to pt this morning. He is doing very well following c1d1 Herceptin/FOLFOX. He is hardeep diet and resting. His 5FU pump is going along fine. I told him [facility] will be delivering ondansetron today. Yesterday, Judith and I worked on his transportation schedule with [place] [facility] and [employer] service. Pt also was given forms by Clary in Financial Counseling Office as he does not have drug benefit with his Medicare Plan.
[2021-10-17] MEDS: Heparin Sodium,Porcine Flush 500 UNIT/5 ML SYRINGE IVFLUSH (12:20)
--- NOTE | 2021-10-17 13:50 | MHC.HEMONC ---
Pt here for chemo pump take down. Port flushed with heparin and de accessed
--- NOTE | 2021-10-24 15:44 | MHC.HEMONC ---
Call from patient reporting a sore throat and asking if he can take acetaminophen. This RN confirmed that that was appropriate. His next infusion was also confirmed for next Thursday.
[2021-10-29 08:45] VITALS: BP 137/63; PULSE 60; TEMP 36.5; O2SAT 98; BMI 18.4
--- NOTE | 2021-10-29 08:57 | PM.HEMONCPN ---
Medical Summary - Medical Summary Date of Service: 10/29/21 Chief complaint: Follow-up for: Stage IV gastric carcinoma. Medical Summary: DIAGNOSIS: GASTRIC CARCINOMA. STAGE IV DISEASE. CURRENT THERAPY: Here for FOLFOX PLUS HERCEPTIN, day 14. Interval History Interval history: Jeffrey Schilling is a 81 year old gentleman, here for a follow-up visit. He tells me he is feeling pretty good. He has so far been tolerating the chemotherapy reasonably well. Feels a bit more energetic. He did notice some canker sores and a couple of little white patches on his lips but they are gone now. He had a bit of nausea, last week, but the anti emetic took care of it. He was constipated for 4-5 days but finally went yesterday. His appetite is picking up. He has been trying to take Ensure. He denies abdominal pain, however sometimes the surgical scar, itches. He denies heartburn. No nausea or vomiting. Sometimes he has to get up and burps, when he lays on his left side. He noted initially that his bowels was soft. He did not go for 3 days. He was prescribed Colace. He went a little bit today. Stool was hard. He denies gross blood in the stools. He does feel rather fatigued. No fever nor chills. His appetite had been low initially. He lost about 18 lb. Now it is picking up and he has gained some weight, 2 - 3 lb. He denies headache no dizziness. He occasionally gets pain under his ribcage. No chest pain or trouble breathing. Denies dysuria or hematuria. He has to get up 2-3 times at night. He denies any joint pain or muscle pain. No focal weakness. Denies depression. No skin rashes or pruritus. Previous history: He was admitted to the hospital back in July with abdominal pain. He presented on 08/15/2021 to the emergency department with complaints of persistent nausea and vomiting. He reported initial symptoms of acid reflux and has been taking [id number] Zantac which was not helping. He denied fever, chills, but does report constipation. He has been taking Ex-Lax at home without significant improvement. Upon presentation to the emergency department a CT of the abdomen and pelvis revealed a dilated stomach secondary to obstructive abnormality at the antrum where there was circumferential and irregular thickening of the gastric antrum and a 1.9 cm necrotic node beneath the duodenum, worrisome for underlying neoplasm. He subsequently underwent an EGD 08/15. Findings included an ulcerated mass at the gastric outlet. Biopsies were taken. The scope was able to be manipulated through the strictured mass. Results of the biopsy are pending at this time. Surgical consultation was requested for possible partial gastrectomy. He appears cachectic but denies weight loss. Patient underwent the surgery on 08/26. 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 So surgery could not be performed. 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 He is status post gastrojejunostomy.? He developed fever/rigors over last weekend and underwent work up which was negative. Started on IV zosyn empirically. Blood cultures positive for GNR bacteria: serratia Marsenscans. Symptoms resolved. He remained afebrile >24h. White blood count: normal. Continue IV zosyn. Obtain ID consult re: GNR bacteremia and antibiotic recommendations. <Aliza Perdue PA-C - CT chest and abdomen/pelvis: No evidence of anastomotic leak or abscess. Agree with ID consultation. He was sent home on antibiotics. Family history: Mom had skin cancer. She lived to be 100 years old. 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 He currently resides in senior housing project in an apartment. His brother is his neighbor. He is not . He has no children. He smoked a pack-a-day. Drank socially. Review of Systems - Constitutional Reports system reviewed and no additional complaints, except as documented - Eyes Reports system reviewed and no additional complaints, except as documented - ENT Reports system reviewed and no additional complaints, except as documented - Cardiovascular Reports system reviewed and no additional complaints, except as documented - Respiratory Reports no additional respiratory complaints - Gastrointestinal Reports system reviewed and no additional complaints, except as documented - Genitourinary Genitourinary: Reports no additional male genitourinary complaints - Musculoskeletal Reports system reviewed and no additional complaints, except as documented - Integumentary/Breasts Skin/Breast: Reports no additional skin complaints - Neurologic Reports system reviewed and no additional complaints, except as documented - Psychiatric Reports system reviewed and no additional complaints, except as documented - Endocrine Reports no additional endocrine complaints - Hematologic/Lymphatic Reports system reviewed and no additional complaints, except as documented - Allergic/Immunologic Reports system reviewed and no additional complaints, except as documented [facility] Medical History: Medical History (Last Reviewed 10/14/21 @ 12:00 by Gagan Doll RN) Bacteremia Hypertension Vertigo Functional capacity: independent ambulation Family History: Family History (Last Reviewed 10/14/21 @ 12:00 by Gagan Doll RN) Father Past heart attack Mother Past heart attack Surgical History: Surgical History (Last Reviewed 10/14/21 @ 12:00 by Gagan Doll RN) H/O bypass gastrojejunostomy History of appendectomy Social History: Social History (Last Reviewed 10/14/21 @ 12:00 by Gagan Doll RN) Living Situation History: Household Members: None Housing: Apartment Do you presently have visiting nurse or other home services: No Tobacco History: Patient Tobacco Use Status: Former Tobacco user Tobacco use type: Cigarette Years Smoked: 30 Smoke Quit Date: quit 26 yr ago e-Cigarette/Vaping Use: Never Used Second Hand Smoke Exposure: No 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 occupational status: retired Oncology Screenings - ECOG Performance Status ECOG Performance Status: 0 Home Medications and Allergies Current Medications: Current Medications Acetaminophen (Acetaminophen 325 Mg Tablet) 650 mg PO ONCE TANO Stop: 10/29/21 23:59 Diphenhydramine HCl (Diphenhydramine Hcl 50 Mg/Ml Vial) 25 mg IVPUSH ONCE TANO Stop: 10/29/21 23:59 Ondansetron HCl (Zofran) 16 mg in 50 mls @ 200 mls/hr IV ONCE TANO Stop: 10/29/21 23:59 Dexamethasone Sodium Phosphate (Decadron) 12 mg in 50 mls @ 200 mls/hr IV ONCE TANO Stop: 10/29/21 23:59 Fluorouracil 4,225 mg/ Sodium (Chloride) 92 mls @ 2 mls/hr IV ONCE TANO Stop: 10/29/21 23:59 Fluorouracil 700 mg/ IV (Miscellaneous Supplies) 14 mls @ 0 mls/hr IVPUSH ONCE TANO Stop: 10/29/21 23:59 Leucovorin Calcium 700 mg/ (Dextrose) 285 mls @ 142.5 mls/hr IV ONCE TANO Stop: 10/29/21 23:59 Oxaliplatin 100 mg/ (Oxaliplatin 50 mg/ Dextrose) 530 mls @ 265 mls/hr IV ONCE TANO Stop: 10/29/21 23:59 Trastuzumab 244 mg/ Sodium (Chloride) 261.6307 mls @ 523.261 mls/hr IV ONCE TANO Stop: 10/29/21 23:59 Allergies Allergy/AdvReac Type Severity Reaction Status Date / Time No Known Allergies Allergy Verified 10/14/21 12:00 [No Known Allergies*] Exam Vital signs: Vital Signs Temp 97.7 F 10/29/21 08:45 Pulse 60 10/29/21 08:45 Resp 20 10/15/21 09:05 BP 137/63 10/29/21 08:45 Pulse Ox 98 10/29/21 08:45 Intake & Output 10/28/21 10/29/21 10/29/21 18:59 06:59 18:59 Other: Weight 61.8 kg [place] Weight in Grams 15031 Weight 61.8 kg BMI result Body Mass Index 18.4 - Constitutional Present: no acute distress - Routine HEENT Exam Head: Present: normal inspection Eye: Present: normal appearance ENT: Present: mucous membranes moist - Routine Neck Exam Present: full ROM - Routine Respiratory Exam Present: CTAB - Routine Cardiovascular Exam Cardiovascular: Present: RRR, S1, S2 - Routine Abdominal Exam Present: soft, nontender - Routine Extremities Exam Present: nontender - Routine Back/Spine/Pelvis Exam Back/Spine: Present: full ROM - Routine Skin Exam Present: intact - Routine Neurological Exam Present: alert, oriented X3 - Routine Psychiatric Exam Present: normal affect Data - Labs CBC & Chem 7: 10/14/21 11:30 10/14/21 Unknown Assessment and Plan Patient Active problem list reviewed?: Yes (1) Gastric adenocarcinoma Status: Acute Assessment and plan: 81 year old gentleman with gastric outlet obstruction. EGD showed a gastric mass. 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 I recommended Pre-op chemotherapy, followed by surgery if feasible. Patient was evaluated by general surgery and GI. They recommended to proceed with surgical resection. He underwent the surgery on 08/26. 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 So surgery could not be performed. 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 He is status post gastrojejunostomy.? Hospital course was complicated rather development of fever/rigors. He underwent work up which was negative. He was started on IV zosyn empirically. Blood cultures positive for GNR bacteria: Serratia Marsenscans. Symptoms resolved. He remained afebrile >24h. White blood count: normal. Continue IV zosyn. Obtain ID consult re: GNR bacteremia and antibiotic recommendations. CT chest and abdomen/pelvis: No evidence of anastomotic leak or abscess. He was sent home on antibiotics. He is now here for a follow-up visit. He has HER2 positive disease. l checked PDL1: 1. MSI. Since he has stage IV disease the plan is to treat him with palliative systemic chemotherapy: FOLFOX plus trastuzumab. He had a PET scan for staging, on Sunday 10/08: 1. An intensely FDG avid right upper quadrant mass is contiguous with intensely FDG avid wall thickening in the pyloric region of the distal stomach. This is most likely a primary malignancy. 2. Multiple FDG avid liver metastases are present. 3. No additional abnormalities suspicious for other metastatic or malignant lesions are noted. 4. Vascular calcifications including coronary are noted. He underwent chemotherapy teaching. Details of the regimen including potential side effects of nausea vomiting diarrhea, cold toxicity, peripheral neuropathy, renal toxicity, pancytopenia, need for antibiotics and blood transfusion as well as growth factors were all addressed with him. He understood and was willing to proceed. He had a Port-A-Cath placed. He started treatment, 10/14/2021. He had baseline labs drawn. He underwent an EKG and cardiac echo. These are normal. He was given a prescription for Ensure, by Dr. Corbett. He had issues with transportation. Arrangements have been made, to help him with that. Database: Labs from 10/28: CBC: WBC 4.2, HGB 10.4, HCT 32.9, PLT 220. CMP: Lytes WNL, glucose 79, BUN 16, ELECTRIC LOCOMOTIVE FIRER/FIREMAN 0.82. LFTs: 0.4/102/19/11. Baseline CEA from September 30: 153. He seems like he is improving. Hopefully that shows an early response. PLAN: He will recieve day 14 treatment today. Will proceed with 3 cycles and then re-stage him with imaging. I will send a prescription for Magic mouthwash to take in case of mucositis. He will return in a couple of weeks for a follow-up. All his questions were answered to his satisfaction. Thank you, CC: Dr. Corbett. Dr. Brush. - Time Spent With Patient Time Spent with Patient (in minutes): 30
[2021-10-29] MEDS: Acetaminophen 325 MG TABLET 650 MG PO (09:09)
[2021-10-29] MEDS: diphenhydrAMINE HCL 50 MG/ML VIAL 25 MG IVPUSH (09:10)
[2021-10-29] MEDS: dexAMETHasone sod phosphate/NS 12 MG/50 ML PIGGYBACK 200 MG IV (09:37)
[2021-10-29] MEDS: Leucovorin Calcium 700 MG in Dextrose 5 % 250 ML 142.5 MG IV (11:25)
[2021-10-29] MEDS: OXALIplatin 100 MG, OXALIplatin 50 MG in Dextrose 5 % 500 ML 265 MG IV (11:26)
--- NOTE | 2021-10-29 12:14 | MHC.HEMONC ---
Here for C2 D1 Folfox/Herceptin. States tolerated last treatment well. Denies n/v, does state he has been constipated and taking colace. Port accessed with good blood return noted. Labs done 10/28 reviewed. Premedicated with tylenol, benadryl, dexamethasone, and ondansetron as ordered. Treatment done and tolerated well. Will return in 2 days for pump take down.
[2021-10-29] MEDS: fluorouraciL 700 MG in Syringe, Disposable 0 ML IVPUSH (13:44)
[2021-10-31 12:55] VITALS: BP 125/67; PULSE 56; RESP 18; TEMP 37.1; O2SAT 99
[2021-10-31] MEDS: Heparin Sodium,Porcine Flush 500 UNIT/5 ML SYRINGE IVFLUSH (13:09)
--- NOTE | 2021-10-31 13:28 | HO.HEMONCPA ---
No PA required for Neulasta (Pegfilgrastim). Drug covered under Medicare Part B.
--- NOTE | 2021-10-31 16:41 | MHC.HEMONC ---
Pt arrived for C2D3 of FOLFOX plus Herceptin pump takedown of 46 hr Fluouracil infusion, VSS. Pt reported minimal side effects, no skin irritation, no neuropathy, but does admit to cold sensitivity, so nurse reinforced education about wearing gloves and avoiding touching cold items to skin, as well as avoiding cold liquids. Pt reports his canker sore on his mouth has gone away and his sore throat has improved, reports occasional nausea, uses PRN zofran w/ effect, has some loss of appetite this week, also says he has some constipation, using stool softeners. Nurse advised him to use stool softeners once or twice a day until he can move bowels without straining. Pt asked if he should get COVID-19 booster the following week, Dr. Conroy replied yes. Nurse reminded pt that his immune system is being weakened by chemo tx, so protection from COVID-19 is vital. Nurse also inquired w/ Dr. Conroy about pt potentially receiving Neulasta r/t leukopenia. Dr. Conroy asked that PA be obtained now so pt can receive Neulasta after next tx if needed. Aluminum Can Collector Judith notified nurse that no PA is required for Neulasta as this pt has Medicare Part B. Pt had already removed battery from take-home pump. Nurse found flushing R chest port was a bit sluggish, could not immediately find blood return, but after prompting pt to raise both arms in the air, blood return came, nurse flushed w/ NS and Heparin 500 units, deaccessed port, which was well-tolerated. Pt received d/c packet w/ next cycle C3D1, booked on 11/12/21.
[2021-11-12 09:13] VITALS: BMI 18.1
[2021-11-12 09:14] VITALS: BP 150/73; PULSE 55; RESP 18; TEMP 36; O2SAT 100
[2021-11-12] MEDS: Acetaminophen 325 MG TABLET 650 MG PO (09:42)
[2021-11-12] MEDS: diphenhydrAMINE HCL 50 MG/ML VIAL 25 MG IVPUSH (09:43)
--- NOTE | 2021-11-12 10:04 | MHC.HEMONCSW ---
MET WITH PATIENT WHO REPORTS COPING FAIRLY WELL. RESIDES ALONE IN APARTMENT NEXT DOOR TO HIS BROTHER. REPORTS ONLY ISSUE THUS FAR HAS BEEN TRANSPORTATION BUT THAT OUR [facility] WILL BE TRANSPORTING HIM. HEALTH CARE PROXY COMPLETED..NAMED BROTHER ANGY, SCANNED INTO OUR SYSTEM. DENIES ANY OTHER CONCERNS. HE IS AWARE OF MY ROLE AND AVAILABILITY.
[2021-11-12] MEDS: dexAMETHasone sod phosphate/NS 12 MG/50 ML PIGGYBACK 200 MG IV (10:06)
[2021-11-12] MEDS: Leucovorin Calcium 700 MG in Dextrose 5 % 250 ML 142.5 MG IV (11:49)
[2021-11-12] MEDS: OXALIplatin 100 MG, OXALIplatin 50 MG in Dextrose 5 % 500 ML 265 MG IV (11:49)
[2021-11-12] MEDS: fluorouraciL 700 MG in Syringe, Disposable 0 ML IVPUSH (13:58)
--- NOTE | 2021-11-12 14:34 | MHC.HEMONC ---
Here for C3 D1 Folfox/Herceptin. Labs drawn 11/11 reviewed. Port accessed with good blood return noted. States he is feeling well except for decreased appetite. Premeds given as ordered. Treatment done and tolerated well. Home with infusion pump. Scheduled to return in 2 days for pump take down.
[2021-11-14] MEDS: Heparin Sodium,Porcine Flush 500 UNIT/5 ML SYRINGE IVFLUSH (12:42)
--- NOTE | 2021-11-14 16:17 | MHC.HEMONC ---
Here for pump take down. Tolerated treatment well. Next treatment in 2 weeks
[2021-11-26 08:37] VITALS: BP 135/64; PULSE 57; RESP 20; TEMP 36.2; O2SAT 100; BMI 18.1
[2021-11-26] MEDS: Acetaminophen 325 MG TABLET 650 MG PO (09:02)
[2021-11-26] MEDS: diphenhydrAMINE HCL 25 MG TABLET PO (09:02)
[2021-11-26] MEDS: dexAMETHasone sod phosphate/NS 12 MG/50 ML PIGGYBACK 200 MG IV (09:03)
[2021-11-26] MEDS: OXALIplatin 100 MG, OXALIplatin 50 MG in Dextrose 5 % 500 ML 265 MG IV (11:52)
[2021-11-26] MEDS: Leucovorin Calcium 700 MG in Dextrose 5 % 250 ML 142.5 MG IV (11:52)
[2021-11-26] MEDS: fluorouraciL 700 MG in Syringe, Disposable 0 ML IVPUSH (13:55)
[2021-11-28] MEDS: Heparin Sodium,Porcine Flush 500 UNIT/5 ML SYRINGE IVFLUSH (12:55)
--- NOTE | 2021-11-28 13:06 | MHC.HEMONC ---
Pt here for chemo pump take down. Port flushed with heparin and de accessed. Pt states he has constipation. States he is taking colace with minimal effect. Pt instructed to try Miralax daily
--- NOTE | 2021-12-09 18:37 | HE.PHANOTE ---
ECHO WILL BE NEEDED IN DECEMBER 2021 (PRE-TREATMENT ECHO WAS ON 10/14/21)
[2021-12-10 08:26] VITALS: BMI 18.2
[2021-12-10] MEDS: Acetaminophen 325 MG TABLET 650 MG PO (08:55)
[2021-12-10] MEDS: diphenhydrAMINE HCL 50 MG/ML VIAL 25 MG IVPUSH (08:55)
[2021-12-10 09:02] VITALS: BP 122/54; PULSE 50; RESP 16; TEMP 36.4; O2SAT 99
[2021-12-10] MEDS: dexAMETHasone sod phosphate/NS 12 MG/50 ML PIGGYBACK 200 MG IV (09:21)
[2021-12-10] MEDS: Leucovorin Calcium 700 MG in Dextrose 5 % 250 ML 142.5 MG IV (11:05)
[2021-12-10] MEDS: OXALIplatin 100 MG, OXALIplatin 50 MG in Dextrose 5 % 500 ML 265 MG IV (11:05)
[2021-12-10] MEDS: fluorouraciL 700 MG in Syringe, Disposable 0 ML IVPUSH (13:29)
--- NOTE | 2021-12-10 14:25 | MHC.HEMONC ---
Here for C5 D1 Folfox/herceptin. Labs done 12/09 reviewed. Port accessed with good blood return noted. States is feeling well. Did have some constipation after last treatment, and has taken Miralax with good effects. Premeds given as ordered. Treatment done and tolerated well. Scheduled for pump take down in 2 days. Home with infusion pump.
[2021-12-12] MEDS: Heparin Sodium,Porcine Flush 500 UNIT/5 ML SYRINGE IVFLUSH (12:56)
--- NOTE | 2021-12-12 14:31 | MHC.HEMONC ---
Pt presented for pump takedown and heparin flush, reported his pump had started beeping an hour ago, indicating completion of 46 hr Fluorouracil infusion, and he removed the battery. Pt reports his constipation reported 2 days ago has resolved, and now bowels are moving very freely. Nurse flushed port w/ NS, achieved positive blood return, then flushed w/ 500 units Heparin. Pt's R chest port was deaccessed and he tolerated it well. Nurse d/c'd pt w/ his next chemo cycle scheduled in 2 weeks, on 12/24/21.
--- NOTE | 2021-12-23 15:03 | HO.HEMONCPA ---
NO PA REQUIRED NEULASTA/NEULASTA PRO. DRUGS COVERED UNDER MEDICARE PART B BENEFITS.
[2021-12-31] MEDS: Tbo-Filgrastim 300 MCG/0.5 ML SYRINGE SUBCUT (09:12)
[2021-12-31 09:15] VITALS: BP 130/63; PULSE 53; TEMP 36.4; O2SAT 99
[2021-12-31 09:16] VITALS: BMI 18.6
--- NOTE | 2021-12-31 10:01 | P.PNHO_ITS ---
Medical Summary - Medical Summary Date of Service: 12/31/21 Chief complaint: Follow-up for: Gastric carcinoma. Medical Summary: DIAGNOSIS: GASTRIC CARCINOMA. STAGE IV DISEASE. CURRENT THERAPY: FOLFOX PLUS HERCEPTIN, started on 10/15. Second cycle: 11/12. Third cycle: 12/10. Here for cycle 3. Day 14. However he is neutropenic with ANC of 0.4. He received Granix today. Will try again tomorrow. Interval History Interval history: Jeffrey Schilling is a 81 year old gentleman, here for a follow-up visit. He tells me he is feeling quite well now. Couple of weeks ago after his last cycle of chemotherapy he did notice some canker sores. He could not eat well for about a week. He did not really call us. He does feel rather tired and has to take extra naps, after the treatment. Other than that he has been tolerating the chemotherapy reasonably well. His chemotherapy had to be delayed last week on account neutropenia. The extra week off has helped him since he feels more energetic. He denies headache no dizziness. He occasionally gets pain under his ribcage. No chest pain or trouble b reathing. He denies abdominal pain, He denies heartburn. No nausea or vomiting. Sometimes he has burping. He felt constipated initially. Now with the MiraLax he has been going regular. Denies gross blood in the stools. His appetite is back, he has actually been feeling really hungry. He has been trying to take Ensure. No fever nor chills. Denies dysuria or hematuria. He gets up 2-3 times at night. He denies any joint pain or muscle pain. No focal weakness. Denies depression. No skin rashes or pruritus. Previous history: He was admitted to the hospital back in July,, with abdominal pain. He presented on 08/15/2021 to the emergency department with complaints of persistent nausea and vomiting. He reported initial symptoms of acid reflux and has been taking [id number] Zantac which was not helping. He denied fever, chills, but does report constipation. He has been taking Ex-Lax at home w ithout significant improvement. Upon presentation to the emergency department a CT of the abdomen and pelvis revealed a dilated stomach secondary to obstructive abnormality at the antrum where there was circumferential and irregular thickening of the gastric antrum and a 1.9 cm necrotic node beneath the duodenum, worrisome for underlying neoplasm. He subsequently underwent an EGD 08/15. Findings included an ulcerated mass at the gastric outlet. Biopsies were taken. The scope was able to be manipulated through the strictured mass. Results of the biopsy are pending at this time. Surgical consultation was requested for possible partial gastrectomy. He appears cachectic but denies weight loss. Patient underwent the surgery on 08/26. 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 So surgery could not be performed. 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 He is status post gastrojejunostomy.? He developed fever/rigors over last weekend and underwent work up which was negative. Started on IV zosyn empirically. Blood cultures positive for GNR bacteria: serratia Marsenscans. Symptoms resolved. He remained afebrile >24h. White blood count: normal. Continue IV zosyn. Obtain ID consult re: GNR bacteremia and antibiotic recommendations. <Aliza Perdue PA-C - CT chest and abdomen/pelvis: No evidence of anastomotic leak or abscess. Agree with ID consultation. He was sent home on antibiotics. Family history: Mom had skin cancer. She lived to be 100 years old. 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 He currently resides in senior housing project in an apartment. His brother is his neighbor. He is not . He has no children. He smoked a pack-a-day. Drank socially. Review of Systems - Constitutional Reports no additional constitutional complaints, Reports lack of energy, Reports malaise, Reports weakness - Eyes Reports no additional eye complaints - ENT Reports no additional ear, nose, mouth, and throat complaints, Reports mouth lesions - Cardiovascular Reports no additional cardiovascular complaints - Respiratory Reports no additional respiratory complaints - Gastrointestinal Reports no additional gastrointestinal complaints - Genitourinary Genitourinary: Reports no additional male genitourinary complaints - Musculoskeletal Reports no additional musculoskeletal complaints - Integumentary/Breasts Skin/Breast: Reports no additional skin complaints - Neurologic Reports no additional neurologic complaints - Psychiatric Reports no additional psychiatric complaints - Endocrine Reports no additional endocrine complaints - Hematologic/Lymphatic Reports no additional hematologic/lymphatic complaints - Allergic/Immunologic Reports no additional allergic/immunologic complaints [facility] Medical History: Medical History (Last Reviewed 10/14/21 @ 12:00 by Gagan Doll RN) Bacteremia Hypertension Vertigo Functional capacity: independent ambulation Family History: Family History (Last Reviewed 12/25/21 @ 13:41 by Jonathan Kee CMA) Father Past heart attack Mother Past heart attack Surgical History: Surgical History (Last Reviewed 12/25/21 @ 13:41 by Jonathan Kee CMA) H/O bypass gastrojejunostomy History of appendectomy Social History: Social History (Last Reviewed 12/25/21 @ 13:41 by Jonathan Kee CMA) Living Situation History: Household Members: None Housing: Apartment Do you presently have visiting nurse or other home services: No Tobacco History: Patient Tobacco Use Status: Former Tobacco user Tobacco use type: Cigarette Years Smoked: 30 Smoke Quit Date: quit 26 yr ago e-Cigarette/Vaping Use: Never Used Second Hand Smoke Exposure: No Nutrition Assessment: Patient : No 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 occupational status: retired Home Medications and Allergies Home Medications Medication Instructions Recorded Confirmed Type polyethylene glycol 3350 17 17 g PO DAILY 12/31/21 12/31/21 History gram/dose oral powder (Miralax) Allergies Allergy/AdvReac Type Severity Reaction Status Date / Time No Known Allergies Allergy Verified 12/25/21 13:41 [No Known Allergies*] Exam Vital signs: Vital Signs Temp 97.6 F 12/31/21 09:15 Pulse 53 12/31/21 09:15 Resp 16 12/10/21 09:02 BP 130/63 12/31/21 09:15 Pulse Ox 99 12/31/21 09:15 Intake & Output 12/30/21 12/31/21 12/31/21 18:59 06:59 18:59 Other: Weight 62.3 kg Weight in Grams 73511 Weight 62.3 kg BMI result Body Mass Index 18.6 - Constitutional Present: no acute distress - Routine HEENT Exam Head: Present: normal inspection Eye: Present: normal appearance ENT: Present: mucous membranes moist - Routine Neck Exam Present: full ROM - Routine Respiratory Exam Present: CTAB - Routine Cardiovascular Exam Cardiovascular: Present: RRR, S1, S2 - Routine Abdominal Exam Present: soft, nontender - Routine Extremities Exam Present: nontender - Routine Back/Spine/Pelvis Exam Back/Spine: Present: full ROM - Routine Skin Exam Present: intact - Routine Neurological Exam Present: alert, oriented X3 - Routine Psychiatric Exam Present: normal affect Data - Labs CBC & Chem 7: 10/14/21 11:30 10/14/21 Unknown Assessment and Plan Patient Active problem list reviewed?: Yes (1) Gastric adenocarcinoma Status: Acute Assessment and plan: 81 year old gentleman with gastric outlet obstruction. EGD showed a gastric mass. 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 I recommended Pre-op chemotherapy, followed by surgery if feasible. Patient was evaluated by general surgery and GI. They recommended to proceed with surgical resection. He underwent the surgery on 08/26. 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 So surgery could not be performed. 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 He is status post gastrojejunostomy.? Hospital course was complicated rather development of fever/rigors. He underwent work up which was negative. He was started on IV zosyn empirically. Blood cultures positive for GNR bacteria: Serratia Marsenscans. Symptoms resolved. He remained afebrile >24h. White blood count: normal. Continue IV zosyn. Obtain ID consult re: GNR bacteremia and antibiotic recommendations. CT chest and abdomen/pelvis: No evidence of anastomotic leak or abscess. He was sent home on antibiotics. He is now here for a follow-up visit. He has HER2 positive disease. l checked PDL1: 1. MSI. Since he has stage IV disease the plan is to treat him with palliative systemic chemotherapy: FOLFOX plus trastuzumab. He had a PET scan for staging, on Sunday 10/08: 1. An intensely FDG avid right upper quadrant mass is contiguous with intensely FDG avid wall thickening in the pyloric region of the distal stomach. This is most likely a primary malignancy. 2. Multiple FDG avid liver metastases are present. 3. No additional abnormalities suspicious for other metastatic or malignant lesions are noted. 4. Vascular calcifications including coronary are noted. Details of the regimen including potential side effects of nausea vomiting diarrhea, cold toxicity, peripheral neuropathy, renal toxicity, pancytopenia, need for antibiotics and blood transfusion as well as growth factors were all addressed with him. He understood and was willing to proceed. He had a Port-A-Cath placed. He started treatment, 10/14/2021. He underwent an EKG and cardiac echo. These are normal. He was given a prescription for Ensure, by Dr. Corbett. He had issues with transportation. Arrangements have been made, to help him with that. Database: Labs from 10/28: CBC: WBC 4.2, HGB 10.4, HCT 32.9, PLT 220. CMP: Lytes WNL, glucose 79, BUN 16, INFECTION PREVENTION SPECIALIST 0.82. LFTs: 0.4/102/09/08. Baseline CEA from September 30: 153. Database from 12/30: CBC: WBC 2.5, HGB 10.9, HCT 35.1, PLT 171. CMP: Lytes WNL, BUN 15, INFECTION PREVENTION SPECIALIST 0.87, glucose is 122. Isai 9.4, ALB 3.8. LFTs: 0.8/102/. CEA level from 09/30: 153.20. CEA from 12/30: He seems to be tolerating the treatment very well. He does not complain of any GI symptoms, that is a good sign that he is responding. PLAN: He received Granix today. Will repeat blood count tomorrow and hopefully he can receive day 14 of cycle 3. Will proceed with re-staging him with imaging, in a couple of weeks. He was advised to call us in case he has any side effects i.e. canker sores. I had sent a prescription for Magic mouthwash, however he did not take it. He will return in a couple of weeks for a follow-up. All his questions were answered to his satisfaction. Thank you, CC: Dr. Corbett. Dr. Brush. - Time Spent With Patient Time Spent with Patient (in minutes): 30
--- NOTE | 2021-12-31 10:05 | MHC.HEMONC ---
Labs done 12/30, ANC 0.4. Dr Conroy aware. Treatment cancelled today. Granix given to pt as ordered, and plan is for pt to come back in AM for labs and possible treatment if anc is better. Dr Conroy in to see pt in follow up. Hospital transportation arranged for tomorrow and Thursday for pump take down.
[2022-01-01 08:42] VITALS: BP 122/58; PULSE 51; RESP 20; TEMP 36.2; BMI 18.3
[2022-01-01 09:04] LABS: Basophils Percent Auto 0.5 % (0-2); Eosinophils Absolute Auto 0.2 X10*3/uL (0.0-0.4); Eosinophils Percent Auto 1.9 % (0-4); Hematocrit 33.1 % (42.0-52.0); Hemoglobin 10.3 g/dl (14.0-18.0); Imm Gran Abs Auto 0.06 X10*3/uL (0.00-0.03); Imm Gran Pct Auto 0.7 % (0.0-0.4); Lymphocytes Absolute Auto 1.6 X10*3/uL (1.2-4.9); Lymphocytes Percent Auto 19.4 % (20-40); MANUAL DIFF FLAG SCAN; Mean Corpuscular HGB Conc 31.1 g/dl (31.0-36.0); Mean Corpuscular Hemoglobin 27.9 pg (27.0-33.0); Mean Corpuscular Volume 89.7 fL (80.0-98.0); Mean Platelet Volume 10.6 fL (9.4-12.4); Monocytes Absolute Auto 2.2 X10*3/uL (0.1-1.2); Monocytes Percent Auto 26.3 % (2-11); Neutrophils Absolute Auto 4.3 x10*3/uL (2.0-8.3); Neutrophils Percent Auto 51.2 % (45-73); Platelet Count 143 X10*3/uL (160-400); Red Blood Count 3.69 X10*6/uL (4.60-5.80); Red Cell Distribution Width 19.9 % (11.0-16.0); SCAN SMEAR FLAG 1; White Blood Count 8.4 X10*3/uL (4.8-10.8)
[2022-01-01 09:18] LABS: Alanine Aminotransferase 18 U/L (0-40); Albumin Level 3.7 g/dL (3.5-5.0); Alkaline Phosphatase 93 U/L (39-117); Anion Gap 12 (12-20); Aspartate Amino Transferase 23 U/L (5-37); Bilirubin Total 0.4 mg/dL (0.0-1.0); Blood Urea Nitrogen 18 mg/dL (9-16); Calcium 9.1 mg/dL (8.4-10.2); Carbon Dioxide 24 mmol/L (22-29); Chloride 108 mmol/L (96-108); Creatinine Clr Calc Pharmacy 65.7; Estimated Glomerular Filt Rate > 60; Glucose Random 91 mg/dL (60-115); Potassium 4.4 mmol/L (3.3-5.1); Sodium 140 mmol/L (135-145); Total Protein 6.2 g/dL (6.5-8.0)
[2022-01-01 09:35] LABS: SLIDE REVIEW VERIFIED
[2022-01-01] MEDS: Acetaminophen 325 MG TABLET 650 MG PO (09:59)
[2022-01-01] MEDS: diphenhydrAMINE HCL 50 MG/ML VIAL 25 MG IVPUSH (10:22)
[2022-01-01] MEDS: dexAMETHasone sod phosphate/NS 12 MG/50 ML PIGGYBACK 200 MG IV (10:42)
[2022-01-01] MEDS: Leucovorin Calcium 700 MG in Dextrose 5 % 250 ML 142.5 MG IV (11:56)
[2022-01-01] MEDS: OXALIplatin 100 MG, OXALIplatin 50 MG in Dextrose 5 % 500 ML 265 MG IV (11:57)
[2022-01-01] MEDS: fluorouraciL 700 MG in Syringe, Disposable 0 ML IVPUSH (14:03)
--- NOTE | 2022-01-01 15:19 | MHC.HEMONC ---
Here for C6 D1. Port accessed with good blood return noted. Labs drawn and results reviewed. ANC 4.3 after dose of granix 12/31. OK for treatment today. States has been feeling good, eating well this past week. He did have some mouth sores for a week after his last treatment, and states he couldn't eat. Dr Conroy was made aware and will send prescription for magic mouthwash. Pre-meds given as ordered. Treatment done and tolerated well. Scheduled to return on Thursday for pump take down and neulasta. Home with infusion pump.
--- NOTE | 2022-01-01 15:29 | MHC.HEMONCSW ---
MET WITH PT WHILE HE RECEIVED TREATMENT. DISCUSSED ILLNESS, RECOVERY TIME AND AREA RESOURCES. PROTEIN IS VERY LOW AND ENSURE SAMPLES GIVEN. SUPPORTIVE AND INFORMATIONAL COUNSELING IS PROVIDED.
[2022-01-03] MEDS: Heparin Sodium,Porcine Flush 500 UNIT/5 ML SYRINGE IVFLUSH (13:15)
--- NOTE | 2022-01-03 15:19 | MHC.HEMONC ---
Pt here for chemo pump take down. Port flushed with heparin and de accessed. Neulasta injection SC given in right arm-tolerated well.
[2022-01-14 08:36] VITALS: BMI 17.8
[2022-01-14] MEDS: Acetaminophen 325 MG TABLET 650 MG PO (09:19)
[2022-01-14] MEDS: dexAMETHasone sod phosphate/NS 12 MG/50 ML PIGGYBACK 200 MG IV (09:47)
[2022-01-14 10:18] VITALS: BP 124/58; PULSE 52; RESP 16; TEMP 36.1; O2SAT 100
[2022-01-14] MEDS: diphenhydrAMINE HCL 50 MG/ML VIAL 25 MG IVPUSH (10:18)
[2022-01-14] MEDS: Leucovorin Calcium 700 MG in Dextrose 5 % 250 ML 142.5 MG IV (11:19)
[2022-01-14] MEDS: OXALIplatin 100 MG, OXALIplatin 50 MG in Dextrose 5 % 500 ML 265 MG IV (11:25)
[2022-01-14] MEDS: fluorouraciL 700 MG in Syringe, Disposable 0 ML IVPUSH (13:35)
--- NOTE | 2022-01-14 15:27 | MHC.HEMONC ---
Here for c7d1 herceptin/folfox. Labs reviewed, premeds and chemo tolerated well. Pt aware of next appt.
[2022-01-16 14:06] VITALS: BMI 18.0
[2022-01-16 14:07] VITALS: BP 137/61; PULSE 71; RESP 18; TEMP 36.7; O2SAT 100
[2022-01-16] MEDS: Heparin Sodium,Porcine Flush 500 UNIT/5 ML SYRINGE IVFLUSH (14:09)
--- NOTE | 2022-01-16 16:59 | MHC.HEMONC ---
Pt arrived for takedown of pump after concluding 46 hr 5FU infusion, reported he removed the battery when the infusion completed before arriving. Nurse flushed pt's R chest port w/ NS, found it still exhibited positive blood return, then flushed w/ Heparin 500 units before pt was de-accessed, all of which was well-tolerated. Nurse admin sched Neulasta 6mg SC, which pt took w/ no issues. Pt declined d/c packet and nurse confirmed his next appt for chemo on 01/28/22, pt to have labs drawn at home prior. Pt left in good spirits.
--- NOTE | 2022-01-28 08:10 | HE.PHANOTE ---
PATIENT BASELINE ECHO WAS DONE 10/14/21; SHOULD HAVE HAD NEW ECHO LATE DECEMBER. THIS WAS NOT DONE. SPOKE TO RN THIS MORNING AND SHE WILL TALK TO MD ABOUT SCHEDULING ONE
[2022-01-28 08:20] VITALS: BMI 17.8
[2022-01-28 08:21] VITALS: BP 137/57; PULSE 51; RESP 18; TEMP 36.7; O2SAT 98
[2022-01-28] MEDS: Acetaminophen 325 MG TABLET 650 MG PO (08:52)
[2022-01-28] MEDS: dexAMETHasone sod phosphate/NS 12 MG/50 ML PIGGYBACK 200 MG IV (08:53)
--- NOTE | 2022-01-28 09:28 | HO.HEMONCSCH ---
Echo was sent to [facility].
[2022-01-28] MEDS: diphenhydrAMINE HCL 50 MG/ML VIAL 25 MG IVPUSH (09:42)
[2022-01-28] MEDS: Leucovorin Calcium 700 MG in Dextrose 5 % 250 ML 142.5 MG IV (10:47)
[2022-01-28] MEDS: OXALIplatin 100 MG, OXALIplatin 50 MG in Dextrose 5 % 500 ML 265 MG IV (10:48)
[2022-01-28] MEDS: fluorouraciL 700 MG in Syringe, Disposable 0 ML 150 MG IVPUSH (13:00)
[2022-01-28] MEDS: FLUOROURACIL IV (13:01)
[2022-01-28] MEDS: SODIUM CHLORIDE 0.9% IV (13:01)
--- NOTE | 2022-01-28 13:41 | MHC.HEMONC ---
Here for c8 herceptin/folfox. Labs drawn yesterday at home, ok for treatment today. Premeds and treatment tolerated well. C/O extreme temperature intolerance which is affecting PO intake. Next 2 chemo appts booked and rides arranged by [facility]. He will see Dr Conroy with next cycle. Pt aware of schedule.
[2022-01-30] MEDS: Heparin Sodium,Porcine Flush 500 UNIT/5 ML SYRINGE IVFLUSH (13:58)
--- NOTE | 2022-01-30 16:27 | MHC.HEMONC ---
Pump taken down. Port flushed with heparin flush and de-accessed. Neulasta 6mg sc given as ordered.
[2022-02-11 08:34] VITALS: BP 133/63; PULSE 48; RESP 18; TEMP 35.9; O2SAT 100; BMI 17.6
[2022-02-11] MEDS: dexAMETHasone sod phosphate/NS 12 MG/50 ML PIGGYBACK 200 MG IV (09:11)
[2022-02-11] MEDS: Acetaminophen 325 MG TABLET 650 MG PO (09:12)
--- NOTE | 2022-02-11 09:31 | P.PNHO_ITS ---
Medical Summary - Medical Summary Date of Service: 02/11/22 Chief complaint: Follow-up for: Gastric carcinoma. Medical Summary: DIAGNOSIS: GASTRIC CARCINOMA. STAGE IV DISEASE. CURRENT THERAPY: FOLFOX PLUS HERCEPTIN, started on 10/15. Second cycle: 11/12. Third cycle: 12/10. Cycle 3. Day 14: 12/31. Here for cycle 5 day 1. Interval History Interval history: Jeffrey Schilling is a 81 year old gentleman, here for a follow-up visit. He tells me he is feeling quite well now. Last week he felt really fatigued for a couple days. His main complaint is lack of taste. He tries to drink cold soda and water but he cannot. Weak before the chemo he starts feeling better. His energy level improves however then he is due for his next treatment. Overall he has noted improvement in his symptoms. He denies any abdominal pain. No symptoms of reflux. He is no longer constipated. He is pretty well that way. He does have an appetite however he cannot eat much, due to lack of taste. He has not lost more weight but he has not gained much either. He is holding stable at 131 lb. After his last cycle of chemotherapy, he did notice some canker sores. These have resolved. He does feel tired at times and takes extra naps. Other than that he has been tolerating the chemotherapy reasonably well. He denies headache no dizziness. No chest pain or trouble breathing. He denies abdominal pain, He denies heartburn. No nausea or vomiting. Sometimes he burps. He was constipated initially. Now with the MiraLax he has been going regular. Denies gross blood in the stools. He has been trying to take Ensure. No fever nor chills. Denies dysuria or hematuria. He has frequency of micturition.. He denies any joint pain or muscle pain. No focal weakness. Denies depression. No skin rashes or pruritus. Previous history: He was admitted to the hospital back in July,, with abdominal pain. He presented on 08/15/2021 to the emergency department with complaints of persistent nausea and vomiting. He reported initial symptoms of acid reflux and has been taking nptn-pld-vievooc Zantac which was not helping. He denied fever, chills, but does report constipation. He has been taking Ex-Lax at home without significant improvement. Upon presentation to the emergency department a CT of the abdomen and pelvis revealed a dilated stomach secondary to obstructive abnormality at the antrum where there was circumferential and irregular thickening of the gastric antrum and a 1.9 cm necrotic node beneath the duodenum, worrisome for underlying neoplasm. He subsequently underwent an EGD 08/15. Findings included an ulcerated mass at the gastric outlet. Biopsies were taken. The scope was able to be manipulated through the strictured mass. Results of the biopsy are pending at this time. Surgical consultation was requested for possible partial gastrectomy. He appears cachectic but denies weight loss. Patient underwent the surgery on 08/26. 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 So surgery could not be performed. 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 He is status post gastrojejunostomy.? He developed fever/rigors over last weekend and underwent work up which was negative. Started on IV zosyn empirically. Blood cultures positive for GNR bacteria: serratia Marsenscans. Symptoms resolved. He remained afebrile >24h. White blood count: normal. Continue IV zosyn. Obtain ID consult re: GNR bacteremia and antibiotic recommendations. <Aliza Perdue PA-C - CT chest and abdomen/pelvis: No evidence of anastomotic leak or abscess. Agree with ID consultation. He was sent home on antibiotics. Family history: Mom had skin cancer. She lived to be 100 years old. 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 He currently resides in senior housing project in an apartment. His brother is his neighbor. He is not . He has no children. He smoked a pack-a-day. Drank socially. Review of Systems - Constitutional Reports system reviewed and no additional complaints, except as documented, Reports weakness, Denies fever(s), Denies weight loss - Eyes Reports system reviewed and no additional complaints, except as documented - ENT Reports system reviewed and no additional complaints, except as documented - Cardiovascular Reports system reviewed and no additional complaints, except as documented - Respiratory Reports no additional respiratory complaints - Gastrointestinal Reports system reviewed and no additional complaints, except as documented - Genitourinary Genitourinary: Reports no additional male genitourinary complaints - Musculoskeletal Reports system reviewed and no additional complaints, except as documented - Integumentary/Breasts Skin/Breast: Reports no additional skin complaints - Neurologic Reports system reviewed and no additional complaints, except as documented, Reports weakness - Psychiatric Reports system reviewed and no additional complaints, except as documented - Endocrine Reports no additional endocrine complaints - Hematologic/Lymphatic Reports system reviewed and no additional complaints, except as documented - Allergic/Immunologic Reports system reviewed and no additional complaints, except as documented PMFSH Medical History: Medical History (Last Reviewed 10/14/21 @ 12:00 by Gagan Doll RN) Bacteremia Hypertension Vertigo Functional capacity: independent ambulation Family History: Family History (Last Reviewed 02/10/22 @ 10:49 by REESE Church) Father Past heart attack Mother Past heart attack Surgical History: Surgical History (Last Reviewed 02/10/22 @ 10:49 by REESE Church) H/O bypass gastrojejunostomy History of appendectomy Social History: Social History (Last Reviewed 02/10/22 @ 10:49 by REESE Church) Living Situation History: Household Members: None Housing: Apartment Do you presently have visiting nurse or other home services: No Tobacco History: Patient Tobacco Use Status: Former Tobacco user Tobacco use type: Cigarette Years Smoked: 30 Smoke Quit Date: quit 26 yr ago e-Cigarette/Vaping Use: Never Used Second Hand Smoke Exposure: No 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 occupational status: retired Oncology Screenings - ECOG Performance Status ECOG Performance Status: 0 Home Medications and Allergies Current Medications: Current Medications Acetaminophen (Acetaminophen 325 Mg Tablet) 650 mg PO ONCE TANO Stop: 02/11/22 23:59 Last Admin: 02/11/22 09:12 Dose: 650 mg Documented by: Diphenhydramine HCl (Diphenhydramine Hcl 50 Mg/Ml Vial) 25 mg IVPUSH ONCE TANO Stop: 02/11/22 23:59 Dexamethasone Sodium Phosphate (Decadron) 12 mg in 50 mls @ 200 mls/hr IV ONCE TANO Stop: 02/11/22 23:59 Last Infusion: 02/11/22 09:26 Dose: Infused Documented by: Fluorouracil 4,175 mg/ Sodium (Chloride) 92 mls @ 2 mls/hr IV ONCE TANO Stop: 02/11/22 23:59 Fluorouracil 700 mg/ IV (Miscellaneous Supplies) 14 mls @ 0 mls/hr IVPUSH ONCE TANO Stop: 02/11/22 23:59 Leucovorin Calcium 700 mg/ (Dextrose) 285 mls @ 142.5 mls/hr IV ONCE TANO Stop: 02/11/22 23:59 Oxaliplatin 100 mg/ (Oxaliplatin 50 mg/ Dextrose) 530 mls @ 265 mls/hr IV ONCE TANO Stop: 02/11/22 23:59 Trastuzumab 238 mg/ Sodium (Chloride) 261.3447 mls @ 522.689 mls/hr IV ONCE TANO Stop: 02/11/22 23:59 Ondansetron HCl (Zofran) 16 mg in 50 mls @ 200 mls/hr IV ONCE TANO Stop: 02/11/22 23:59 Last Admin: 02/11/22 09:30 Dose: 200 mls/hr Documented by: Home Medications Medication Instructions Recorded Confirmed Type polyethylene glycol 3350 17 17 g PO DAILY 12/31/21 02/11/22 History gram/dose oral powder (Miralax) Allergies Allergy/AdvReac Type Severity Reaction Status Date / Time No Known Allergies Allergy Verified 02/10/22 10:49 [No Known Allergies*] Exam Vital signs: Vital Signs Temp 96.7 F L 02/11/22 08:34 Pulse 48 L 02/11/22 08:34 Resp 18 02/11/22 08:34 BP 133/63 02/11/22 08:34 Pulse Ox 100 02/11/22 08:34 Intake & Output 02/10/22 02/11/22 02/11/22 18:59 06:59 18:59 Intake Total 50 / 50 Balance 50 / 50 Intake: Intake, IV Amount 50 / 50 dexAMETHasone sod phosphate/NS 50 / 50 12 mg In 50 ml @ 200 mls/hr IV ONCE TANO Rx#:[id number] Other: Weight 59.1 kg [place] Weight in Grams 43938 Weight 59.1 kg BMI result Body Mass Index 17.6 - Constitutional Present: no acute distress - Routine HEENT Exam Head: Present: normal inspection Eye: Present: normal appearance ENT: Present: mucous membranes moist - Routine Neck Exam Present: full ROM - Routine Respiratory Exam Present: CTAB - Routine Cardiovascular Exam Cardiovascular: Present: RRR, S1, S2 - Routine Abdominal Exam Present: soft, nontender - Routine Extremities Exam Present: nontender - Routine Back/Spine/Pelvis Exam Back/Spine: Present: full ROM - Routine Skin Exam Present: intact - Routine Neurological Exam Present: alert, oriented X3 - Routine Psychiatric Exam Present: normal affect Data - Labs CBC & Chem 7: 01/01/22 08:55 01/01/22 08:55 Assessment and Plan Patient Active problem list reviewed?: Yes (1) Gastric adenocarcinoma Status: Acute Assessment and plan: 81 year old gentleman with gastric outlet obstruction. EGD showed a gastric mass. 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 I recommended Pre-op chemotherapy, followed by surgery if feasible. Patient was evaluated by general surgery and GI. They recommended to proceed with surgical resection. He underwent the surgery on 08/26. 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 So surgery could not be performed. 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 He is status post gastrojejunostomy.? Hospital course was complicated rather development of fever/rigors. He underwent work up which was negative. He was started on IV zosyn empirically. Blood cultures positive for GNR bacteria: Serratia Marsenscans. Symptoms resolved. He remained afebrile >24h. White blood count: normal. Continue IV zosyn. Obtain ID consult re: GNR bacteremia and antibiotic recommendations. CT chest and abdomen/pelvis: No evidence of anastomotic leak or abscess. He was sent home on antibiotics. He is now here for a follow-up visit. He has HER2 positive disease. l checked PDL1: 1. MSI. Since he has stage IV disease the plan is to treat him with palliative systemic chemotherapy: FOLFOX plus trastuzumab. He had a PET scan for staging, on Sunday 10/08: 1. An intensely FDG avid right upper quadrant mass is contiguous with intensely FDG avid wall thickening in the pyloric region of the distal stomach. This is most likely a primary malignancy. 2. Multiple FDG avid liver metastases are present. 3. No additional abnormalities suspicious for other metastatic or malignant lesions are noted. 4. Vascular calcifications including coronary are noted. Details of the regimen including potential side effects of nausea vomiting diarrhea, cold toxicity, peripheral neuropathy, renal toxicity, pancytopenia, need for antibiotics and blood transfusion as well as growth factors were all addressed with him. He understood and was willing to proceed. He had a Port-A-Cath placed. He started treatment, 10/14/2021. He underwent an EKG and cardiac echo. These are normal. He was given a prescription for Ensure, by Dr. Corbett. He had issues with transportation. Arrangements have been made, to help him with that. Database: Labs from 10/28: CBC: WBC 4.2, HGB 10.4, HCT 32.9, PLT 220. CMP: Lytes WNL, glucose 79, BUN 16, BUSINESS DEVELOPMENT PROFESSIONAL 0.82. LFTs: 0.4/102/09/08. Baseline CEA from September 30: 153. Database from 12/30: CBC: WBC 2.5, HGB 10.9, HCT 35.1, PLT 171. CMP: Lytes WNL, BUN 15, BUSINESS DEVELOPMENT PROFESSIONAL 0.87, glucose is 122. Isai 9.4, ALB 3.8. LFTs: 0.8/102/. CEA level from 09/30: 153.20. CEA from 12/30: 80. Database from 02/10: CBC: WBC 12.7, HGB 9.5, HCT 38, MCV 96.9, PLT 103. CMP: Lytes WNL, glucose 119, BUN 11, BUSINESS DEVELOPMENT PROFESSIONAL 0.85. Cl 8.9, a lb 3.5. LFTs: 0.2/177/. CEA level: 80, down from 153, bqck in 10/12. This is encouraging. He seems to be tolerating the treatment very well. His GI symptoms, have resolved. That is a good sign that he is responding. He is here for cycle 5 day 1. PLAN: Will proceed with re-staging with imaging, next week. He will return in a couple of weeks for a follow-up. He will receive another couple cycles, then be restaged. All his questions were answered to his satisfaction. Thank you, CC: Dr. Corbett. Dr. Brush. - Time Spent With Patient Time Spent with Patient (in minutes): 30
[2022-02-11] MEDS: diphenhydrAMINE HCL 50 MG/ML VIAL 25 MG IVPUSH (09:54)
[2022-02-11] MEDS: OXALIplatin 100 MG, OXALIplatin 50 MG in Dextrose 5 % 500 ML 265 MG IV (11:03)
[2022-02-11] MEDS: Leucovorin Calcium 700 MG in Dextrose 5 % 250 ML 142.5 MG IV (11:03)
--- NOTE | 2022-02-11 12:33 | HO.HEMONCSCH ---
Ct scan sent to [facility].
[2022-02-11] MEDS: fluorouraciL 700 MG in Syringe, Disposable 0 ML IVPUSH (13:13)
[2022-02-11] MEDS: fluorouraciL 4,175 MG in 0.9 % Sodium Chloride 8.5 ML IV (13:13)
--- NOTE | 2022-02-11 14:21 | MHC.HEMONC ---
Pt here for C9 D1 Folfox/Herceptin. Labs done 02/10 reviewed. Port accessed with good blood return noted. States he is feeling well, appetite good over the last several days. Premedicated with tylenol po, dexamethasone, benadryl, and ondansetron IV. Treatment done and tolerated well. Dr Conroy in to see pt in follow up. CT abd ordered. 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 Home with infusion pump. Scheduled for take down and neulasta in 2 days.
[2022-02-13] MEDS: Heparin Sodium,Porcine Flush 500 UNIT/5 ML SYRINGE IVFLUSH (11:57)
--- NOTE | 2022-02-13 16:20 | MHC.HEMONC ---
Here for pump take down. Tolerated treatment well. Port flushed with heparin and de-accessed. Next chemo scheduled for 2 weeks.
--- NOTE | 2022-02-13 16:21 | MHC.HEMONC ---
Neulasta 6mg sc given as ordered
[2022-02-25 08:50] VITALS: BP 117/57; PULSE 56; RESP 18; TEMP 36.2; O2SAT 100; BMI 17.3
[2022-02-25 08:54] LABS: Hematocrit 29.2 % (42.0-52.0); Hemoglobin 9.1 g/dl (14.0-18.0); Mean Corpuscular HGB Conc 31.2 g/dl (31.0-36.0); Mean Corpuscular Hemoglobin 30.7 pg (27.0-33.0); Mean Corpuscular Volume 98.6 fL (80.0-98.0); Mean Platelet Volume 11.1 fL (9.4-12.4); Red Blood Count 2.96 X10*6/uL (4.60-5.80); Red Cell Distribution Width 22.2 % (11.0-16.0); White Blood Count 13.4 X10*3/uL (4.8-10.8)
[2022-02-25 08:55] LABS: Platelet Count 80 X10*3/uL (160-400)
[2022-02-25 09:11] LABS: Alanine Aminotransferase 22 U/L (0-40); Albumin Level 3.3 g/dL (3.5-5.0); Alkaline Phosphatase 199 U/L (39-117); Anion Gap 11 (12-20); Aspartate Amino Transferase 27 U/L (5-37); Bilirubin Total 0.4 mg/dL (0.0-1.0); Blood Urea Nitrogen 13 mg/dL (9-16); Calcium 8.6 mg/dL (8.4-10.2); Carbon Dioxide 26 mmol/L (22-29); Chloride 108 mmol/L (96-108); Creatinine Clr Calc Pharmacy 62.9; Estimated Glomerular Filt Rate > 60; Glucose Random 98 mg/dL (60-115); Potassium 4.2 mmol/L (3.3-5.1); Sodium 141 mmol/L (135-145); Total Protein 5.7 g/dL (6.5-8.0)
[2022-02-25 09:17] LABS: Band Neutrophils Percent 25 % (3-5); Lymphocytes Absolute Manual 0.4 X10*3/uL (1.2-4.9); Lymphocytes Percent Manual 3 % (20-40); Metamyelocytes Absolute 0.1 X10*3/uL; Metamyelocytes Percent 1 %; Monocytes Absolute Manual 0.9 X10*3/uL (0.1-1.2); Monocytes Percent Manual 7 % (2-11); Neutrophils Absolute Manual 11.9 X10*3/uL (2.0-8.3); Neutrophils Percent Manual 64 % (45-73)
[2022-02-25 09:19] LABS: Acanthocytes 2+ (3-5) /OIF; Macrocytosis 1+ (5-14) /OIF; Ovalocytes 1+ (5-14) /OIF; Platelet Estimate DECREASED (NORMAL); Platelet Morphology Comment NORMAL; RBC Morphology NOTED
[2022-02-25 09:20] LABS: Burr Cells 1+ (0-2) /OIF; Tear Drop Cells 1+ (0-2) /OIF
[2022-02-25] MEDS: Acetaminophen 325 MG TABLET 650 MG PO (09:38)
[2022-02-25] MEDS: diphenhydrAMINE HCL 50 MG/ML VIAL 25 MG IVPUSH (09:38)
[2022-02-25] MEDS: dexAMETHasone sod phosphate/NS 12 MG/50 ML PIGGYBACK 200 MG IV (09:39)
--- NOTE | 2022-02-25 11:01 | MHC.HEMONC ---
plt low from home lab draw yesterday 70, redraw today now 80, ok for chemo treatment. ct scheduled pt will notify transport
[2022-02-25] MEDS: OXALIplatin 100 MG, OXALIplatin 50 MG in Dextrose 5 % 500 ML 265 MG IV (11:33)
[2022-02-25] MEDS: Leucovorin Calcium 690 MG in Dextrose 5 % 250 ML 142.25 MG IV (11:33)
[2022-02-25] MEDS: fluorouraciL 700 MG in Syringe, Disposable 0 ML 150 MG IVPUSH (13:39)
[2022-02-25] MEDS: fluorouraciL 4,150 MG in 0.9 % Sodium Chloride 9 ML IV (13:40)
--- NOTE | 2022-02-26 14:12 | MHC.HEMONCSW ---
RECEIVED TREATMENT, REMAINS ALERT AND INDEPENDENT. DISCUSS VARIOUS MEDICAL SIDE EFFECTS, RN IS AWARE, THEY ARE BEING ADDRESSED. PROBLEM REMAINS IS HE HAS NO CARE...HE HAS BEEN LOOKING SO IN THE MEANTIME HE TAKES OUR [facility] TO OUR APPOINTMENTS. HE RELIES ON HIS BROTHER FOR OUTSIDE TRANSP[ORTATION. REPORTS COPING FAIRLY WELL. SUPPORTIVE COUNSELING PROVIDED.
[2022-02-27] MEDS: Heparin Sodium,Porcine Flush 500 UNIT/5 ML SYRINGE IVFLUSH (11:53)
--- NOTE | 2022-02-27 12:35 | MHC.HEMONC ---
Here for pump take down. Tolerated treatment well. Neulasta injection given and tolerated well. Next treatment scheduled for 2 weeks.
[2022-03-11 08:30] LABS: MANUAL DIFF FLAG NO
[2022-03-11 08:36] LABS: Basophils Percent Auto 0.4 % (0-2); Eosinophils Absolute Auto 0.1 X10*3/uL (0.0-0.4); Eosinophils Percent Auto 1.1 % (0-4); Hematocrit 28.1 % (42.0-52.0); Hemoglobin 8.8 g/dl (14.0-18.0); Imm Gran Abs Auto 0.31 X10*3/uL (0.00-0.03); Imm Gran Pct Auto 4.3 % (0.0-0.4); Lymphocytes Absolute Auto 1.2 X10*3/uL (1.2-4.9); Lymphocytes Percent Auto 17.1 % (20-40); Mean Corpuscular HGB Conc 31.3 g/dl (31.0-36.0); Mean Corpuscular Hemoglobin 31.7 pg (27.0-33.0); Mean Corpuscular Volume 101.1 fL (80.0-98.0); Mean Platelet Volume 12.1 fL (9.4-12.4); Monocytes Percent Auto 13.3 % (2-11); Neutrophils Absolute Auto 4.6 x10*3/uL (2.0-8.3); Neutrophils Percent Auto 63.8 % (45-73); Red Blood Count 2.78 X10*6/uL (4.60-5.80); Red Cell Distribution Width 21.7 % (11.0-16.0); White Blood Count 7.3 X10*3/uL (4.8-10.8)
[2022-03-11 08:38] LABS: Platelet Count 76 X10*3/uL (160-400)
[2022-03-11 08:50] LABS: Alanine Aminotransferase 20 U/L (0-40); Albumin Level 3.4 g/dL (3.5-5.0); Alkaline Phosphatase 157 U/L (39-117); Anion Gap 11 (12-20); Aspartate Amino Transferase 28 U/L (5-37); Bilirubin Total 0.3 mg/dL (0.0-1.0); Blood Urea Nitrogen 15 mg/dL (9-16); Calcium 8.5 mg/dL (8.4-10.2); Carbon Dioxide 26 mmol/L (22-29); Chloride 107 mmol/L (96-108); Creatinine Clr Calc Pharmacy 60.6; Estimated Glomerular Filt Rate > 60; Glucose Random 90 mg/dL (60-115); Potassium 3.7 mmol/L (3.3-5.1); Sodium 140 mmol/L (135-145); Total Protein 5.7 g/dL (6.5-8.0)
[2022-03-11 09:00] VITALS: BP 126/57; PULSE 50; RESP 18; TEMP 36.1; O2SAT 96; BMI 17.7
[2022-03-11 09:09] LABS: PSA,Total (Free>4and<10) 3.42 ng/mL (0.00-4.00)
[2022-03-11] MEDS: Acetaminophen 325 MG TABLET 650 MG PO (09:20)
[2022-03-11] MEDS: diphenhydrAMINE HCL 50 MG/ML VIAL 25 MG IVPUSH (09:20)
[2022-03-11] MEDS: dexAMETHasone sod phosphate/NS 12 MG/50 ML PIGGYBACK 200 MG IV (09:21)
--- NOTE | 2022-03-11 09:38 | MHC.HEMONCSW ---
patient scores self low on distress screen. low platelets today. fatigue and poor appetite continue and staff are aware. supportive counseling provided.
[2022-03-11] MEDS: Leucovorin Calcium 690 MG in Dextrose 5 % 250 ML 142.25 MG IV (11:20)
[2022-03-11] MEDS: OXALIplatin 100 MG, OXALIplatin 50 MG in Dextrose 5 % 500 ML 265 MG IV (11:20)
--- NOTE | 2022-03-11 12:38 | MHC.HEMONC ---
plt yesterday from home lab where 61, redrawn today up to 76, ok for treatment. dr gleason reviewed CT results
[2022-03-11] MEDS: fluorouraciL 700 MG in Syringe, Disposable 0 ML IVPUSH (13:26)
[2022-03-11] MEDS: FLUOROURACIL IV (13:26)
[2022-03-11] MEDS: SODIUM CHLORIDE 0.9% IV (13:26)
[2022-03-13] MEDS: Heparin Sodium,Porcine Flush 500 UNIT/5 ML SYRINGE IVFLUSH (11:49)
[2022-03-13 11:57] VITALS: BP 135/63; PULSE 53; TEMP 36.2; O2SAT 100
--- NOTE | 2022-03-13 12:00 | MHC.HEMONC ---
Here for pump disconnect and neulasta injection. Looking and feeling well. Reports some difficulty gaining weight due to extreme cold sensitivity. Pump disconnected and heparin instilled. Neulasta given to left upper arm. Pt aware of next appt.
--- NOTE | 2022-03-17 14:57 | MHC.HEMONC ---
Pt called to ask about appt next week as it is March 24. I reviewed labs with him from today's home draw. PLT remain low. He did say that he only starts to feel better right before treatment (in regard to appetite, mouth sores and energy). I spoke with Dr Conroy, we will start treatment q21 days and he is aware. Infusion nurses notified. Erika working with [facility] in regard to change in appointments. 3+
--- NOTE | 2022-03-31 11:51 | MHC.HEMONCSW ---
[employer] ROUND TRIP IS ARRANGED FOR TOMORROW 8AM. PHONED, LEFT V/M FOR PT.
[2022-04-01 08:43] VITALS: BMI 17.9
[2022-04-01 08:45] VITALS: BP 112/57; PULSE 61; RESP 16; TEMP 36.5; O2SAT 100
--- NOTE | 2022-04-01 08:57 | MHC.HEMONCSW ---
STANLEY REMAINS A/OX3, INDEPENDENT. TRANSPORTED HERE BY [facility] [employer] AND OUR [facility] WILL TRANSPORT HIM HOME. REPORTS COPING FAIRLY WELL. HE IS AWARE OF MY ROLE/AVAILABILITY.
[2022-04-01] MEDS: Acetaminophen 325 MG TABLET 650 MG PO (09:05)
[2022-04-01] MEDS: dexAMETHasone sod phosphate/NS 12 MG/50 ML PIGGYBACK 200 MG IV (09:27)
[2022-04-01] MEDS: diphenhydrAMINE HCL 50 MG/ML VIAL 25 MG IVPUSH (09:47)
--- NOTE | 2022-04-01 10:09 | P.PNHO-ONC_ITS ---
Medical Summary - Medical Summary Date of Service: 04/01/22 Chief complaint: Follow-up for: Gastric carcinoma. Medical Summary: DIAGNOSIS: GASTRIC CARCINOMA. STAGE IV DISEASE. CURRENT THERAPY: FOLFOX PLUS HERCEPTIN, started on 10/15. Second cycle: 11/12. Third cycle: 12/10. Cycle 3. Day 14: 12/31. Here for cycle 6 day 14. Interval History Interval history: Jeffrey Schilling is a 81 year old gentleman, here for a follow-up visit. He tells me he is feeling very well, now that he had an extra week off of the chemo, to recover. He still feels tired but better, overall. His appetite is back. He has been eating. He gained a couple of lbs. Even cool foods are being tolerable. He still has residual symptoms the neuropathy. He feels as if the socks are tightened being pulled up. The feet field frozen at times. Overall he has noted improvement in his symptoms. He denies any abdominal pain. No symptoms of reflux. He is no longer constipated. He is pretty well that way. He is holding stable at 131 lb. At times he has to take extra naps. He denies headache no dizziness. No chest pain or trouble breathing. He denies abdominal pain, He denies heartburn. No nausea or vomiting. Sometimes he burps. He was constipated initially. Now with the MiraLax he has been going regular. Denies gross blood in the stools. He has been trying to take Ensure. No fever nor chills. Denies dysuria or hematuria. He has frequency of micturition.. He denies any joint pain or muscle pain. No focal weakness. Denies depression. No skin rashes or pruritus. Previous history: He was admitted to the hospital back in July,, with abdominal pain. He presented on 08/15/2021 to the emergency department with complaints of persistent nausea and vomiting. He reported initial symptoms of acid reflux and has been taking [id number] Zantac which was not helping. He denied fever, chills, but does report constipation. He has been taking Ex-Lax at home without significant improvement. Upon presentation to the emergency department a CT of the abdomen and pelvis revealed a dilated stomach secondary to obstructive abnormality at the antrum where there was circumferential and irregular thickening of the gastric antrum and a 1.9 cm necrotic node beneath the duodenum, worrisome for underlying neoplasm. He subsequently underwent an EGD 08/15. Findings included an ulcerated mass at the gastric outlet. Biopsies were taken. The scope was able to be manipulated through the strictured mass. Results of the biopsy are pending at this time. Surgical consultation was requested for possible partial gastrectomy. He appears cachectic but denies weight loss. Patient underwent the surgery on 08/26. 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 So surgery could not be performed. 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 He is status post gastrojejunostomy.? He developed fever/rigors over last weekend and underwent work up which was negative. Started on IV zosyn empirically. Blood cultures positive for GNR bacteria: serratia Marsenscans. Symptoms resolved. He remained afebrile >24h. White blood count: normal. Continue IV zosyn. Obtain ID consult re: GNR bacteremia and antibiotic recommendations. <Aliza Perdue PA-C - CT chest and abdomen/pelvis: No evidence of anastomotic leak or abscess. Agree with ID consultation. He was sent home on antibiotics. Family history: Mom had skin cancer. She lived to be 100 years old. 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 He currently resides in [employer] housing project in an apartment. His brother is his neighbor. He is not . He has no children. He smoked a pack-a-day. Drank socially. Review of Systems - Constitutional Reports no additional constitutional complaints - Eyes Reports no additional eye complaints - ENT Reports no additional ear, nose, mouth, and throat complaints - Cardiovascular Reports no additional cardiovascular complaints - Respiratory Reports no additional respiratory complaints - Gastrointestinal Reports no additional gastrointestinal complaints - Genitourinary Genitourinary: Reports no additional male genitourinary complaints - Musculoskeletal Reports no additional musculoskeletal complaints - Integumentary/Breasts Skin/Breast: Reports no additional skin complaints - Neurologic Reports no additional neurologic complaints, Reports weakness - Psychiatric Reports no additional psychiatric complaints - Endocrine Reports no additional endocrine complaints - Hematologic/Lymphatic Reports no additional hematologic/lymphatic complaints - Allergic/Immunologic Reports no additional allergic/immunologic complaints [facility] Medical History: Medical History (Last Reviewed 10/14/21 @ 12:00 by Gagan Doll RN) Bacteremia Hypertension Vertigo Functional capacity: independent ambulation Patient : No Family History: Family History (Last Reviewed 02/10/22 @ 10:49 by REESE Church) Father Past heart attack Mother Past heart attack Surgical History: Surgical History (Last Reviewed 02/10/22 @ 10:49 by REESE Church) H/O bypass gastrojejunostomy History of appendectomy Social History: Social History (Last Reviewed 02/10/22 @ 10:49 by REESE Church) Living Situation History: Household Members: None Housing: Apartment Do you presently have visiting nurse or other home services: No Tobacco History: Patient Tobacco Use Status: Former Tobacco user Tobacco use type: Cigarette Years Smoked: 30 Smoke Quit Date: quit 26 yr ago e-Cigarette/Vaping Use: Never Used Second Hand Smoke Exposure: No Nutrition Assessment: Patient : No 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 occupational status: retired Oncology Screenings - ECOG Performance Status ECOG Performance Status: 0 Home Medications and Allergies Current Medications: Current Medications Acetaminophen (Acetaminophen 325 Mg Tablet) 650 mg PO ONCE TANO Stop: 04/01/22 23:59 Last Admin: 04/01/22 09:05 Dose: 650 mg Diphenhydramine HCl (Diphenhydramine Hcl 50 Mg/Ml Vial) 25 mg IVPUSH ONCE TANO Stop: 04/01/22 23:59 Last Admin: 04/01/22 09:47 Dose: 25 mg Dexamethasone Sodium Phosphate (Decadron) 12 mg in 50 mls @ 200 mls/hr IV ONCE TANO Stop: 04/01/22 23:59 Last Infusion: 04/01/22 09:42 Dose: Infused Ondansetron HCl (Zofran) 16 mg in 50 mls @ 200 mls/hr IV ONCE TANO Stop: 04/01/22 23:59 Last Infusion: 04/01/22 09:20 Dose: Infused Fluorouracil 4,175 mg/ Sodium (Chloride) 92 mls @ 2 mls/hr IV ONCE TANO Stop: 04/01/22 23:59 Fluorouracil 700 mg/ IV (Miscellaneous Supplies) 14 mls @ 0 mls/hr IVPUSH ONCE TANO Stop: 04/01/22 23:59 Leucovorin Calcium 700 mg/ (Dextrose) 285 mls @ 142.5 mls/hr IV ONCE TANO Stop: 04/01/22 23:59 Oxaliplatin 100 mg/ (Oxaliplatin 50 mg/ Dextrose) 530 mls @ 265 mls/hr IV ONCE TANO Stop: 04/01/22 23:59 Trastuzumab 238 mg/ Sodium (Chloride) 261.3447 mls @ 522.689 mls/hr IV ONCE TANO Stop: 04/01/22 23:59 Home Medications Medication Instructions Recorded Confirmed Type polyethylene glycol 3350 17 17 g PO DAILY 12/31/21 02/11/22 History gram/dose oral powder (Miralax) Allergies Allergy/AdvReac Type Severity Reaction Status Date / Time No Known Allergies Allergy Verified 02/10/22 10:49 [No Known Allergies*] Exam Vital signs: Vital Signs Temp 97.1 F 03/13/22 11:57 Pulse 53 03/13/22 11:57 Resp 18 03/11/22 09:00 BP 135/63 03/13/22 11:57 Pulse Ox 100 03/13/22 11:57 O2 Del Method 03/13/22 11:57 Intake & Output 03/31/22 04/01/22 04/01/22 18:59 06:59 18:59 Intake Total 100 / 100 Balance 100 / 100 Intake: Intake, IV Amount 100 / 100 Ondansetron HCL/NS 16 mg In 50 50 / 50 ml @ 200 mls/hr IV ONCE TANO Rx# :[id number] dexAMETHasone sod phosphate/NS 50 / 50 12 mg In 50 ml @ 200 mls/hr IV ONCE TANO Rx#:[id number] Other: Weight 60.1 kg [place] Weight in Grams 38716 Weight 60.1 kg BMI result Body Mass Index 17.9 - Constitutional Present: no acute distress - Routine HEENT Exam Head: Present: normal inspection Eye: Present: normal appearance ENT: Present: mucous membranes moist - Routine Neck Exam Present: full ROM - Routine Respiratory Exam Present: CTAB - Routine Cardiovascular Exam Cardiovascular: Present: RRR, S1, S2 - Routine Abdominal Exam Present: soft, nontender - Routine Extremities Exam Present: nontender - Routine Back/Spine/Pelvis Exam Back/Spine: Present: full ROM - Routine Skin Exam Present: intact - Routine Neurological Exam Present: alert, oriented X3 - Routine Psychiatric Exam Present: normal affect Data - Labs CBC & Chem 7: 03/11/22 08:28 03/11/22 08:28 Assessment and Plan Patient Active problem list reviewed?: Yes (1) Gastric adenocarcinoma Status: Acute Assessment and plan: 81 year old gentleman with gastric outlet obstruction. EGD showed a gastric mass. 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 I recommended Pre-op chemotherapy, followed by surgery if feasible. Patient was evaluated by general surgery and GI. They recommended to proceed with surgical resection. He underwent the surgery on 08/26. 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 So surgery could not be performed. 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 He is status post gastrojejunostomy.? Hospital course was complicated rather development of fever/rigors. He underwent work up which was negative. He was started on IV zosyn empirically. Blood cultures positive for GNR bacteria: Serratia Marsenscans. Symptoms resolved. He remained afebrile >24h. White blood count: normal. Continue IV zosyn. Obtain ID consult re: GNR bacteremia and antibiotic recommendations. CT chest and abdomen/pelvis: No evidence of anastomotic leak or abscess. He was sent home on antibiotics. He is now here for a follow-up visit. He has HER2 positive disease. l checked PDL1: 1. MSI. Since he has stage IV disease the plan is to treat him with palliative systemic chemotherapy: FOLFOX plus trastuzumab. He had a PET scan for staging, on Sunday 10/08: 1. An intensely FDG avid right upper quadrant mass is contiguous with intensely FDG avid wall thickening in the pyloric region of the distal stomach. This is most likely a primary malignancy. 2. Multiple FDG avid liver metastases are present. 3. No additional abnormalities suspicious for other metastatic or malignant lesions are noted. 4. Vascular calcifications including coronary are noted. Details of the regimen including potential side effects of nausea vomiting diarrhea, cold toxicity, peripheral neuropathy, renal toxicity, pancytopenia, need for antibiotics and blood transfusion as well as growth factors were all addressed with him. He understood and was willing to proceed. He had a Port-A-Cath placed. He started treatment, 10/14/2021. He underwent an EKG and cardiac echo. These are normal. He was given a prescription for Ensure, by Dr. Corbett. He had issues with transportation. Arrangements have been made, to help him with that. Database: Labs from 10/28: CBC: WBC 4.2, HGB 10.4, HCT 32.9, PLT 220. CMP: Lytes WNL, glucose 79, BUN 16, SILVER WRAPPER 0.82. LFTs: 0.4/102/09/08. Database from 12/30: CBC: WBC 2.5, HGB 10.9, HCT 35.1, PLT 171. CMP: Lytes WNL, BUN 15, SILVER WRAPPER 0.87, glucose is 122. Isai 9.4, ALB 3.8. LFTs: 0.8/102/. Database from 02/10: CBC: WBC 12.7, HGB 9.5, HCT 38, MCV 96.9, PLT 103. CMP: Lytes WNL, glucose 119, BUN 11, SILVER WRAPPER 0.85. Cl 8.9, a lb 3.5. LFTs: 0.2/177/. CEA level: 80, down from 153, back in 10/12. Database from 03/31: CBC: WBC 6.9, HGB 9.3,HCT 30, PLT 153. CMP: LYTES WNL, GLUCOSE 89, BUN 19, SILVER WRAPPER 0.78. LFTS: <0.2/160 12/15/2020. Baseline CEA from September 30: 153.20. CEA from 12/30:80. CEA from 03/03: 7.30. His GI symptoms, have resolved. That is a good sign that he is responding. He seems to be tolerating the treatment very well. He is here for cycle 6 day 14. l proceeded with re-staging with imaging, on 02/28: Interval decrease in wall thickening of the distal stomach and probable ulcerative mass adjacent to the distal stomach/proximal duodenum to the head of the pancreas. Small perigastric lymph nodes. Fat stranding and small nodules in the fat inferior to the stomach questionable for evidence of peritoneal disease versus post operative change from gastrojejunostomy. Previously identified liver lesions are not appreciated on noncontrast imaging. New wall thickening of the proximal right colon questionable for colitis. This is encouraging. PLAN: To continue him on the current regimen, for as long as he tolerates it and it works. However will switch him over to Q 3 weekly regimen to give him time to recuperate. He will return in 3 weeks for a follow-up. He will receive another couple of cycles, then be restaged. Will refer him to Neurology for the neuropathy. All his questions were answered to his satisfaction. Thank you, CC: Dr. Corbett. Dr. Brush. - Time Spent With Patient Time Spent with Patient (in minutes): 30
[2022-04-01] MEDS: Leucovorin Calcium 700 MG in Dextrose 5 % 250 ML 142.5 MG IV (11:18)
[2022-04-01] MEDS: OXALIplatin 100 MG, OXALIplatin 50 MG in Dextrose 5 % 500 ML 265 MG IV (11:18)
[2022-04-01] MEDS: fluorouraciL 700 MG in Syringe, Disposable 0 ML IVPUSH (14:05)
[2022-04-01] MEDS: fluorouraciL 4,175 MG in 0.9 % Sodium Chloride 8.5 ML IV (14:06)
--- NOTE | 2022-04-01 16:06 | MHC.HEMONC ---
Here for C12 D1 Folfox/Herceptin. Labs done 03/31 reviewed. Port accessed with good blood return noted. States is feeling good after having an extra week between treatments. States is eating well. Premedicated as ordered. Treatment done and tolerated well. Discharge packet given. Home with infusion pump, and scheduled for take down in 2 days. Next chemo scheduled for 2 weeks.
--- NOTE | 2022-04-02 10:56 | HO.HEMONCSCH ---
Referral to Dr. Meek was made on 04/28/22 at 9am. Pt is aware, was given office number to call in case he needed to change the appt.
[2022-04-03] MEDS: Heparin Sodium,Porcine Flush 500 UNIT/5 ML SYRINGE IVFLUSH (12:01)
--- NOTE | 2022-04-03 14:04 | MHC.HEMONC ---
Here for pump take down. Tolerated treatment well. Port flushed with heparin and de-accessed. Pt given neulasta injection left upper arm. Spoke with Dr Conroy regarding pts lab draws. OK to do lab draws q3 weeks with chemo treatment. Order faxed to lab.
[2022-04-22 08:28] VITALS: BP 117/63; PULSE 63; RESP 18; TEMP 36.4; O2SAT 98; BMI 18.1
[2022-04-22] MEDS: Acetaminophen 325 MG TABLET 650 MG PO (10:00)
[2022-04-22] MEDS: dexAMETHasone sod phosphate/NS 12 MG/50 ML PIGGYBACK 200 MG IV (10:22)
[2022-04-22] MEDS: diphenhydrAMINE HCL 50 MG/ML VIAL 25 MG IVPUSH (10:49)
[2022-04-22] MEDS: Leucovorin Calcium 700 MG in Dextrose 5 % 250 ML 142.5 MG IV (12:49)
[2022-04-22] MEDS: OXALIplatin 100 MG, OXALIplatin 50 MG in Dextrose 5 % 500 ML 265 MG IV (12:50)
[2022-04-22] MEDS: fluorouraciL 700 MG in Syringe, Disposable 0 ML 150 MG IVPUSH (15:03)
[2022-04-22] MEDS: SODIUM CHLORIDE 0.9% IV (15:05)
[2022-04-22] MEDS: FLUOROURACIL IV (15:05)
--- NOTE | 2022-04-22 15:28 | MHC.HEMONC ---
Pt here for FolFox C13D1. Labs were drawn at home and reviewed. Port to right chest accessed, Good blood return. Site benign. Pt toll treatment well, stated just a little fatigue and is scheduled to see neuro for the neuropathy in hands and feet. Pre meds given as ordered. Treatment done and toll well. Ensure supplement samples given. 5FU Loading push given and home with 5FU pump. Pt to return on 04/24/22 for pump takedown. Next treatment scheduled for 3 weeks. Chemo d/c packet given.
[2022-04-24] MEDS: Heparin Sodium,Porcine Flush 500 UNIT/5 ML SYRINGE IVFLUSH (12:06)
--- NOTE | 2022-04-24 12:52 | MHC.HEMONC ---
Pt here for chemo pump take down and neulasta injection. Port flushed with heparin and de accessed. Neulasta SC given in right arm-tolerated well.
--- NOTE | 2022-05-12 16:16 | MHC.HEMONC ---
Order for echo printed and given to Gayle to place in order end worker
[2022-05-13 08:22] VITALS: BMI 18.0
[2022-05-13 08:45] VITALS: BP 105/58; PULSE 55; RESP 18; TEMP 36.4; O2SAT 98
[2022-05-13] MEDS: Acetaminophen 325 MG TABLET 650 MG PO (08:57)
[2022-05-13] MEDS: dexAMETHasone sod phosphate/NS 12 MG/50 ML PIGGYBACK 200 MG IV (08:59)
[2022-05-13] MEDS: diphenhydrAMINE HCL 50 MG/ML VIAL 25 MG IVPUSH (08:59)
--- NOTE | 2022-05-13 09:14 | MHC.HEMONC ---
Pharmacist Ani inquired about pt's Trastuzumab dosing. Pt had been on 14D Trastuzumab/FOLFOX cycle, but was experiencing too many side effects, so Dr. Conroy changed his cycle length to 21 days. Ani pointed out that pt has still been receiving Trastuzumab dose of 4mg/kg ever since cycle was changed from 14 to 21 days, but when Trastuzumab is ordered on a 21D cycle regimen, it is usually ordered at 6mg/kg. Nurse consulted w/ Nurse Zeeshan Ya and Dr. Conroy. Dr Conroy said that, since cycle length was increased to help pt better tolerate the tx, she wants the Trastuzumab dose kept at 4mg/kg going forward. Nurse updated ivania Law.
[2022-05-13] MEDS: OXALIplatin 100 MG, OXALIplatin 50 MG in Dextrose 5 % 500 ML 265 MG IV (12:01)
[2022-05-13] MEDS: Leucovorin Calcium 700 MG in Dextrose 5 % 250 ML 142.5 MG IV (12:02)
--- NOTE | 2022-05-13 13:51 | HE.PHANOTE ---
PATIENT HAS BEEN GETTING CYCLE EVERY 21 DAYS INSTEAD OF Q 14 DAYS. PER ONCOLOGY DEPARTMENT THIS IS BECAUSE OF SIDE EFFECTS, IT WAS VERIFIED WITH DR BUSTAMANTE THAT SHE STILL WANTS ONLY 4 MG/KG ON HERCEPTIN EVEN THOUGH PATIENT HAS BEEN REDUCED TO A Q21 DAY CYCLE
[2022-05-13] MEDS: SODIUM CHLORIDE 0.9% IV (14:25)
[2022-05-13] MEDS: FLUOROURACIL IV (14:25)
--- NOTE | 2022-05-13 16:24 | MHC.HEMONC ---
Here for C14 D1 folfox/herceptin. Port accessed with good blood return noted. Labs done at home 05/12 reviewed. States he is feeling well since last treatment. Premeds given as ordered. Treatment done and tolerated well. Scheduled for pump take down in 2 days and next treatment in 2 weeks. Departure packet given and pt departed unit.
--- NOTE | 2022-05-15 08:14 | P.PNHO-ONC_ITS ---
Medical Summary - Medical Summary Date of Service: 05/15/22 Chief complaint: Follow-up for: Gastric carcinoma. Medical Summary: DIAGNOSIS: GASTRIC CARCINOMA. STAGE IV DISEASE. CURRENT THERAPY: FOLFOX PLUS HERCEPTIN, started on 10/15. Second cycle: 11/12. Third cycle: 12/10. Cycle 3. Day 14: 12/31. Had cycle 7 day 14 on 05/13. Interval History Interval history: Jeffrey Schilling is a 81 year old gentleman, here for a follow-up visit. He tells me he has some tingling in his hands and feet. He has neuropathy. Sometimes he feels he is walking on james. He has seen the neurologist. He has an appointment on Thursday to follow-up on the nerve conduction velocity study. His nails are somewhat broken Other than that, he is feeling very well, now that he had an extra week off of the chemo, to recover. His energy level is not too bad. At times he has to take extra naps. His appetite is back. He has been eating. He gained a few lbs. Even cool foods are being tolerable. Overall he has noted improvement in his symptoms. He denies any abdominal pain. No symptoms of reflux. He is no longer co nstipated. He is pretty well that way. He denies headache no dizziness. No chest pain or trouble breathing. He denies abdominal pain, He denies heartburn. No nausea or vomiting. Sometimes he burps. He was constipated initially. Now with the MiraLax he has been going regular. Denies gross blood in the stools. He has been trying to take Ensure. No fever nor chills. Denies dysuria or hematuria. He has frequency of micturition.. He denies any joint pain or muscle pain. No focal weakness. Denies depression. No skin rashes or pruritus. Previous history: He was admitted to the hospital back in July,, with abdominal pain. He presented on 08/15/2021 to the emergency department with complaints of persistent nausea and vomiting. He reported initial symptoms of acid reflux and has been taking [id number] Zantac which was not helping. He denied fever, chills, but does report constipation. He has been taking Ex-Lax at home without significant improvement. Upon presentation to the emergency department a CT of the abdomen and pelvis revealed a dilated stomach secondary to obstr uctive abnormality at the antrum where there was circumferential and irregular thickening of the gastric antrum and a 1.9 cm necrotic node beneath the duodenum, worrisome for underlying neoplasm. He subsequently underwent an EGD 08/15. Findings included an ulcerated mass at the gastric outlet. Biopsies were taken. The scope was able to be manipulated through the strictured mass. Results of the biopsy are pending at this time. Surgical consultation was requested for possible partial gastrectomy. He appears cachectic but denies weight loss. Patient underwent the surgery on 08/26. 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 So surgery could not be performed. 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 He is status post gastrojejunostomy.? He developed fever/rigors over last weekend and underwent work up which was negative. Started on IV zosyn empirically. Blood cultures positive for GNR bacteria: serratia Marsenscans. Symptoms resolved. He remained afebrile >24h. White blood count: normal. Continue IV zosyn. Obtain ID consult re: GNR bacteremia and antibiotic recommendations. <Aliza Perdue PA-C - CT chest and abdomen/pelvis: No evidence of anastomotic leak or abscess. Agree with ID consultation. He was sent home on antibiotics. Family history: Mom had skin cancer. She lived to be 100 years old. 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 He currently resides in senior housing project in an apartment. His brother is his neighbor. He is not . He has no children. He smoked a pack-a-day. Drank socially. Review of Systems - Constitutional Reports system reviewed and no additional complaints, except as documented, Reports weight gain, Denies anorexia, Denies daytime sleepiness, Denies fatigue, Denies fever(s), Denies lack of energy - Eyes Reports system reviewed and no additional complaints, except as documented - ENT Reports system reviewed and no additional complaints, except as documented - Cardiovascular Reports system reviewed and no additional complaints, except as documented - Respiratory Reports no additional respiratory complaints - Gastrointestinal Reports system reviewed and no additional complaints, except as documented - Genitourinary Genitourinary: Reports no additional male genitourinary complaints - Musculoskeletal Reports system reviewed and no additional complaints, except as documented - Integumentary/Breasts Skin/Breast: Reports no additional skin complaints - Neurologic Reports system reviewed and no additional complaints, except as documented, R eports weakness - Psychiatric Reports system reviewed and no additional complaints, except as documented - Endocrine Reports no additional endocrine complaints - Hematologic/Lymphatic Reports system reviewed and no additional complaints, except as documented - Allergic/Immunologic Reports system reviewed and no additional complaints, except as documented PMFSH Medical History: Medical History (Last Reviewed 10/14/21 @ 12:00 by Gagan Doll RN) Bacteremia Hypertension Vertigo Functional capacity: independent ambulation Patient : No Family History: Family History (Last Reviewed 04/02/22 @ 13:53 by Nikkie Schwartz) Father Past heart attack Mother Past heart attack Surgical History: Surgical History (Last Reviewed 04/02/22 @ 13:53 by Nikkie Schwartz) H/O bypass gastrojejunostomy History of appendectomy Social History: Social History (Last Reviewed 02/10/22 @ 10:49 by REESE Church) Living Situation History: Household Members: None Housing: Apartment Do you presently have visiting nurse or other home services: No Tobacco History: Patient Tobacco Use Status: Former Tobacco user Tobacco use type: Cigarette Years Smoked: 30 Smoke Quit Date: quit 26 yr ago e-Cigarette/Vaping Use: Never Used Second Hand Smoke Exposure: No 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 occupational status: retired Oncology Screenings - ECOG Performance Status ECOG Performance Status: 0 Home Medications and Allergies Current Medications: Current Medications Heparin Sodium (Porcine) (Heparin Sodium,Porcine Flush 500 Unit/5 Ml Syringe) 500 unit IVFLUSH ONCE TANO Stop: 05/15/22 23:59 Home Medications Medication Instructions Recorded Confirmed Type polyethylene glycol 3350 17 17 g PO DAILY 12/31/21 05/15/22 History gram/dose oral powder (Miralax) Allergies Allergy/AdvReac Type Severity Reaction Status Date / Time No Known Allergies Allergy Verified 04/02/22 13:52 [No Known Allergies*] Exam Vital signs: Vital Signs Temp 97.5 F 05/13/22 08:45 Pulse 55 05/13/22 08:45 Resp 18 05/13/22 08:45 BP 105/58 L 05/13/22 08:45 Pulse Ox 98 05/13/22 08:45 O2 Del Method 08/23/22 08:45 Weight 60.2 kg BMI result Body Mass Index 18.0 - Constitutional Present: no acute distress - Routine HEENT Exam Head: Present: normal inspection Eye: Present: normal appearance ENT: Present: mucous membranes moist - Routine Neck Exam Present: full ROM - Routine Respiratory Exam Present: CTAB - Routine Cardiovascular Exam Cardiovascular: Present: RRR, S1, S2 - Routine Abdominal Exam Present: soft, nontender - Routine Extremities Exam Present: nontender - Routine Back/Spine/Pelvis Exam Back/Spine: Present: full ROM - Routine Skin Exam Present: intact - Routine Neurological Exam Present: alert, oriented X3 - Routine Psychiatric Exam Present: normal affect Data - Labs CBC & Chem 7: 03/11/22 08:28 03/11/22 08:28 Assessment and Plan Patient Active problem list reviewed?: Yes (1) Gastric adenocarcinoma Status: Acute Assessment and plan: 81 year old gentleman with gastric outlet obstruction. EGD showed a gastric mass. 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 I recommended Pre-op chemotherapy, followed by surgery if feasible. Patient was evaluated by general surgery and GI. They recommended to proceed with surgical resection. He underwent the surgery on 08/26. 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 So surgery could not be performed. 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 He is status post gastrojejunostomy.? Hospital course was complicated rather development of fever/rigors. He underwent work up which was negative. He was started on IV zosyn empirically. Blood cultures positive for GNR bacteria: Serratia Marsenscans. Symptoms resolved. He remained afebrile >24h. White blood count: normal. Continue IV zosyn. Obtain ID consult re: GNR bacteremia and antibiotic recommendations. CT chest and abdomen/pelvis: No evidence of anastomotic leak or abscess. He was sent home on antibiotics. He is now here for a follow-up visit. He has HER2 positive disease. l checked PDL1: 1. MSI. Since he has stage IV disease the plan is to treat him with palliative systemic chemotherapy: FOLFOX plus trastuzumab. He had a PET scan for staging, on Sunday 10/08: 1. An intensely FDG avid right upper quadrant mass is contiguous with intensely FDG avid wall thickening in the pyloric region of the distal stomach. This is most likely a primary malignancy. 2. Multiple FDG avid liver metastases are present. 3. No additional abnormalities suspicious for other metastatic or malignant lesions are noted. 4. Vascular calcifications including coronary are noted. Details of the regimen including potential side effects of nausea vomiting diarrhea, cold toxicity, peripheral neuropathy, renal toxicity, pancytopenia, need for antibiotics and blood transfusion as well as growth factors were all addressed with him. He understood and was willing to proceed. He had a Port-A-Cath placed. He started treatment, 10/14/2021. He underwent an EKG and cardiac echo. These are normal. He was given a prescription for Ensure, by Dr. Corbett. He had issues with transportation. Arrangements have been made, to help him with that. Database: Labs from 10/28: CBC: WBC 4.2, HGB 10.4, HCT 32.9, PLT 220. CMP: Lytes WNL, glucose 79, BUN 16, PRODUCTION ADMINISTRATOR 0.82. LFTs: 0.4//09/08. Database from 12/30: CBC: WBC 2.5, HGB 10.9, HCT 35.1, PLT 171. CMP: Lytes WNL, BUN 15, PRODUCTION ADMINISTRATOR 0.87, glucose is 122. Isai 9.4, ALB 3.8. LFTs: 0.8/102/. Database from 02/10: CBC: WBC 12.7, HGB 9.5, HCT 38, MCV 96.9, PLT 103. CMP: Lytes WNL, glucose 119, BUN 11, PRODUCTION ADMINISTRATOR 0.85. Cl 8.9, a lb 3.5. LFTs: 0.2/177/. CEA level: 80, down from 153, back in 10/12. Database from 03/31: CBC: WBC 6.9, HGB 9.3,HCT 30, PLT 153. CMP: LYTES WNL, GLUCOSE 89, BUN 19, PRODUCTION ADMINISTRATOR 0.78. LFTS: <0.2/160 12/15/2020. Baseline CEA from September 30: 153.20. CEA from 01/01:80. CEA from 03/03: 7.30. His GI symptoms, have resolved. That is a good sign that he is responding. He seems to be tolerating the treatment very well. He is on cycle 7 day 14 this week. l proceeded with re-staging with imaging, on 02/28: Interval decrease in wall thickening of the distal stomach and probable ulcerative mass adjacent to the distal stomach/proximal duodenum to the head of the pancreas. Small perigastric lymph nodes. Fat stranding and small nodules in the fat inferior to the stomach questionable for evidence of peritoneal disease versus post operative change from gastrojejunostomy. Previously identified liver lesions are not appreciated on noncontrast imaging. New wall thickening of the proximal right colon questionable for colitis. This is encouraging. He is tolerating the treatment now that it has been changed to q. 3 weeks schedule instead of Q 2. PLAN: To continue him on the current regimen, for as long as he tolerates it and it works. He will return in 3 weeks for a follow-up. He will receive another cycle, then be restaged. Will be following up with Neurology for the neuropathy. All his questions were answered to his satisfaction. Thank you, CC: Dr. Corbett. Dr. Brush. - Time Spent With Patient Time Spent with Patient (in minutes): 30
[2022-05-15 11:48] VITALS: BP 124/60; PULSE 61; RESP 18; TEMP 36.7; O2SAT 96
[2022-05-15] MEDS: Heparin Sodium,Porcine Flush 500 UNIT/5 ML SYRINGE IVFLUSH (12:11)
--- NOTE | 2022-05-15 15:54 | MHC.HEMONC ---
Here for pump take down. States tolerated treatment well. Port flushed with heparin and de-accessed. Dr Conroy in to see pt for follow up. Next treatment scheduled for 3 weeks.
[2022-06-03 08:46] VITALS: BP 112/65; PULSE 57; RESP 18; TEMP 36.2; O2SAT 97; BMI 17.9
[2022-06-03] MEDS: Acetaminophen 325 MG TABLET 650 MG PO (09:09)
[2022-06-03] MEDS: diphenhydrAMINE HCL 50 MG/ML VIAL 25 MG IVPUSH (09:09)
[2022-06-03] MEDS: dexAMETHasone sod phosphate/NS 12 MG/50 ML PIGGYBACK 200 MG IV (09:10)
--- NOTE | 2022-06-03 10:30 | MHC.HEMONC ---
pt c/o increased bilat hand numbness. chemo ready q3w and on b12 comlex. today oxalipatin was reduced to 75%
[2022-06-03] MEDS: Leucovorin Calcium 700 MG in Dextrose 5 % 250 ML 142.5 MG IV (11:35)
[2022-06-03] MEDS: FLUOROURACIL IV (13:41)
[2022-06-03] MEDS: SODIUM CHLORIDE 0.9% IV (13:41)
--- NOTE | 2022-06-03 14:10 | MHC.HEMONC ---
Pt here for C15D1 Nivolumab 14 day cycle/ MFolfox6. Scans were reviewed by Dr Conroy. Pt to get only Nivolumab. Pharmacy notified. Pt states is doing well. Reports Energy level is better. Eating well. Still has sigala catheter that is clamped during the day and he intermittently empties it.Neuropathy in fingers unchanged. Still having difficulty grasping/holding items. Labs were drawn at home, reviewed. Port to right chest accessed, + blood return. Site benign. Pre meds given, Tylenol po, Dexamethasone 12mg IV, Benadryl 25mg IV, Pepcid 25mg IV, Zofran 16mg IV as ordered. Nivolumab 240mg infused as ordered. Pt toll well. Port to right chest de-accessed. Site benign. D/C packet given with next treatment in 14 days. Family here to bring patient home.
[2022-06-05] MEDS: Heparin Sodium,Porcine Flush 500 UNIT/5 ML SYRINGE IVFLUSH (12:06)
--- NOTE | 2022-06-05 12:15 | MHC.HEMONC ---
Here for pump take down. Port flushed with heparin and de-accessed. Neulasta given right upper arm and tolerated well.
[2022-06-24 08:29] VITALS: BP 132/63; PULSE 69; RESP 18; TEMP 36.4; O2SAT 97; BMI 17.4
[2022-06-24] MEDS: Acetaminophen 325 MG TABLET 650 MG PO (09:16)
[2022-06-24] MEDS: diphenhydrAMINE HCL 50 MG/ML VIAL 25 MG IVPUSH (09:17)
[2022-06-24] MEDS: dexAMETHasone sod phosphate/NS 12 MG/50 ML PIGGYBACK 200 MG IV (09:18)
--- NOTE | 2022-06-24 10:31 | P.PNHO-ONC_ITS ---
Medical Summary - Medical Summary Date of Service: 06/24/22 Chief complaint: Follow-up for: Gastric carcinoma. Medical Summary: DIAGNOSIS: GASTRIC CARCINOMA. STAGE IV DISEASE. CURRENT THERAPY: FOLFOX PLUS HERCEPTIN, started on 10/15. Second cycle: 11/12. Third cycle: 12/10. Cycle 3. Day 14: 12/31. Had cycle 7 day 14 on 05/13. Here for cycle 6. Interval History Interval history: Jeffrey Schilling is a 82 year old gentleman, here for a follow-up visit. He says he is feeling: Not too bad. He tried the duloxetine for tingling in his hands and feet. He has had neuropathy. Sometimes he feels he is walking on james. However it did not help. His brother said he looked like a zombie, on it. He stopped taking it after a week. He feels rather tired. At times he has to take extra naps. His skin is dry, nails are somewhat broken. His appetite is back. He has been eating. He gained a few lbs. Even cold foods are being tolerable. Overall he has noted improvement in his symptoms. He denies any abdominal pain. No symptoms of reflux. He is no longer constipated. He is pretty well that way. He denies headache no dizziness. No chest pain or trouble breathing. He denies abdominal pain, He denies heartburn. No nausea or vomiting. Sometimes he burps. He was constipated initially. Now with the MiraLax he has been going regular. Denies gross blood in the stools. He has been trying to take Ensure. No fever nor chills. Denies dysuria or hematuria. He has frequency of micturition.. He denies any joint pain or muscle pain. No focal weakness. He has seen the neurologist for the neuropathy. He had an appointment to follow-up on the nerve conduction velocity study. Denies depression. No skin rashes or pruritus. Previous history: He was admitted to the hospital back in July,, with abdominal pain. He presented on 08/15/2021 to the emergency department with complaints of persistent nausea and vomiting. He reported initial symptoms of acid reflux and has been taking [id number] Zantac which was not helping. He denied fever, chills, but does report constipation. He has been taking Ex-Lax at home without significant improvement. Upon presentation to the emergency department a CT of the abdomen and pelvis revealed a dilated stomach secondary to obstructive abnormality at the antrum where there was circumferential and irregular thickening of the gastric antrum and a 1.9 cm necrotic node beneath the duodenum, worrisome for underlying neoplasm. He subsequently underwent an EGD 08/15. Findings included an ulcerated mass at the gastric outlet. Biopsies were taken. The scope was able to be manipulated through the strictured mass. Results of the biopsy are pending at this time. Surgical consultation was requested for possible partial gastrectomy. He appears cachectic but denies weight loss. Patient underwent the surgery on 08/26. 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 So surgery could not be performed. 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 He is status post gastrojejunostomy.? He developed fever/rigors over last weekend and underwent work up which was negative. Started on IV zosyn empirically. Blood cultures positive for GNR bacteria: serratia Marsenscans. Symptoms resolved. He remained afebrile >24h. White blood count: normal. Continue IV zosyn. Obtain ID consult re: GNR bacteremia and antibiotic recommendations. <Aliza Perdue PA-C - CT chest and abdomen/pelvis: No evidence of anastomotic leak or abscess. Agree with ID consultation. He was sent home on antibiotics. Family history: Mom had skin cancer. She lived to be 100 years old. 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 He currently resides in senior housing project in an apartment. His brother is his neighbor. He is not . He has no children. He smoked a pack-a-day. Drank socially. Review of Systems - Constitutional Reports system reviewed and no additional complaints, except as documented - Eyes Reports system reviewed and no additional complaints, except as documented - ENT Reports system reviewed and no additional complaints, except as documented - Cardiovascular Reports system reviewed and no additional complaints, except as documented - Respiratory Reports no additional respiratory complaints - Gastrointestinal Reports system reviewed and no additional complaints, except as documented - Genitourinary Genitourinary: Reports no additional male genitourinary complaints - Musculoskeletal Reports system reviewed and no additional complaints, except as documented - Integumentary/Breasts Skin/Breast: Reports no additional skin complaints - Neurologic Reports system reviewed and no additional complaints, except as documented, Reports weakness - Psychiatric Reports system reviewed and no additional complaints, except as documented - Endocrine Reports no additional endocrine complaints - Hematologic/Lymphatic Reports system reviewed and no additional complaints, except as documented - Allergic/Immunologic Reports system reviewed and no additional complaints, except as documented PMF Medical History: Medical History (Last Reviewed 10/14/21 @ 12:00 by Gagan Doll RN) Bacteremia Hypertension Vertigo Functional capacity: independent ambulation Patient : No Family History: Family History (Last Reviewed 04/02/22 @ 13:53 by Nikkie Schwartz) Father Past heart attack Mother Past heart attack Surgical History: Surgical History (Last Reviewed 04/02/22 @ 13:53 by Nikkie Schwartz) H/O bypass gastrojejunostomy History of appendectomy Social History: Social History (Last Reviewed 02/10/22 @ 10:49 by REESE Church) Living Situation History: Household Members: None Housing: Apartment Do you presently have visiting nurse or other home services: No Tobacco History: Patient Tobacco Use Status: Former Tobacco user Tobacco use type: Cigarette Years Smoked: 30 Smoke Quit Date: quit 26 yr ago e-Cigarette/Vaping Use: Never Used Second Hand Smoke Exposure: No Nutrition Assessment: Patient : No 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 occupational status: retired Oncology Screenings - ECOG Performance Status ECOG Performance Status: 0 Home Medications and Allergies Current Medications: Current Medications Acetaminophen (Acetaminophen 325 Mg Tablet) 650 mg PO ONCE TANO Stop: 06/24/22 23:59 Last Admin: 06/24/22 09:16 Dose: 650 mg Diphenhydramine HCl (Diphenhydramine Hcl 50 Mg/Ml Vial) 25 mg IVPUSH ONCE TANO Stop: 06/24/22 23:59 Last Admin: 06/24/22 09:17 Dose: 25 mg Dexamethasone Sodium Phosphate (Decadron) 12 mg in 50 mls @ 200 mls/hr IV ONCE TANO Stop: 06/24/22 23:59 Last Admin: 06/24/22 09:18 Dose: 200 mls/hr Ondansetron HCl (Zofran) 16 mg in 50 mls @ 200 mls/hr IV ONCE TANO Stop: 06/24/22 23:59 Last Admin: 06/24/22 09:17 Dose: 200 mls/hr Fluorouracil 4,175 mg/ Sodium (Chloride) 92 mls @ 2 mls/hr IV ONCE TANO Stop: 06/24/22 23:59 Fluorouracil 700 mg/ IV (Miscellaneous Supplies) 14 mls @ 0 mls/hr IVPUSH ONCE TANO Stop: 06/24/22 23:59 Leucovorin Calcium 700 mg/ (Dextrose) 285 mls @ 142.5 mls/hr IV ONCE TANO Stop: 06/24/22 23:59 Oxaliplatin 100 mg/ (Oxaliplatin 10 mg/ Dextrose) 522 mls @ 261 mls/hr IV ONCE TANO Stop: 06/24/22 23:59 Trastuzumab 240 mg/ Sodium (Chloride) 261.44 mls @ 522.88 mls/hr IV ONCE TANO Stop: 06/24/22 23:59 Home Medications Medication Instructions Recorded Confirmed Type polyethylene glycol 3350 17 17 g PO DAILY 12/31/21 05/15/22 History gram/dose oral powder (Miralax) vitamin B complex 1 cap PO DAILY 06/03/22 06/03/22 History Allergies Allergy/AdvReac Type Severity Reaction Status Date / Time No Known Allergies Allergy Verified 04/02/22 13:52 [No Known Allergies*] Exam Vital signs: Vital Signs Temp 97.5 F 06/24/22 08:29 Pulse 69 06/24/22 08:29 Resp 18 06/24/22 08:29 BP 132/63 06/24/22 08:29 Pulse Ox 97 06/24/22 08:29 O2 Del Method 06/24/22 08:29 Intake & Output 06/23/22 06/24/22 06/24/22 18:59 06:59 18:59 Other: Weight 58.4 kg [place] Weight in Grams [address]339 Weight 58.4 kg BMI result Body Mass Index 17.4 - Constitutional Present: no acute distress - Routine HEENT Exam Head: Present: normal inspection Eye: Present: normal appearance ENT: Present: mucous membranes moist - Routine Neck Exam Present: full ROM - Routine Respiratory Exam Present: CTAB - Routine Cardiovascular Exam Cardiovascular: Present: RRR, S1, S2 - Routine Abdominal Exam Present: soft, nontender - Routine Extremities Exam Present: nontender - Routine Back/Spine/Pelvis Exam Back/Spine: Present: full ROM - Routine Skin Exam Present: intact - Routine Neurological Exam Present: alert, oriented X3 - Routine Psychiatric Exam Present: normal affect Data - Labs CBC & Chem 7: 03/11/22 08:28 03/11/22 08:28 Assessment and Plan Patient Active problem list reviewed?: Yes (1) Gastric adenocarcinoma Status: Acute Assessment and plan: 81 year old gentleman with gastric outlet obstruction. EGD showed a gastric mass. Pathology: Revealed moderately differentiated adenocarcinoma. HER2 Leyla posit mayelin 3+. I recommended Pre-op chemotherapy, followed by surgery if feasible. Patient was evaluated by general surgery and GI. They recommended to proceed with surgical resection. He underwent the surgery on 08/26. 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 So surgery could not be performed. 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 He is status post gastrojejunostomy.? Hospital course was complicated rather development of fever/rigors. He underwent work up which was negative. He was started on IV zosyn empirically. Blood cultures positive for GNR ba cteria: Serratia Marsenscans. Symptoms resolved. He remained afebrile >24h. White blood count: normal. Continue IV zosyn. Obtain ID consult re: GNR bacteremia and antibiotic recommendations. CT chest and abdomen/pelvis: No evidence of anastomotic leak or abscess. He was sent home on antibiotics. He is now here for a follow-up visit. He has HER2 positive disease. l checked PDL1: 1. MSI. Since he has stage IV disease the plan is to treat him with palliative systemic chemotherapy: FOLFOX plus trastuzumab. He had a PET scan for staging, on Sunday 10/08: 1. An intensely FDG avid right upper quadrant mass is contiguous with intensely FDG avid wall thickening in the pyloric region of the distal stomach. This is most likely a primary malignancy. 2. Multiple FDG avid liver metastases are present. 3. No additional abnormalities suspicious for other metastatic or malignant lesions are noted. 4. Vascular calcifications including coronary are noted. Details of the regimen including potential side effects of nausea vomiting diarrhea, cold toxicity, peripheral neuropathy, renal toxicity, pancytopenia, need for antibiotics and blood transfusion as well as growth factors were all addressed with him. He understood and was willing to proceed. He had a Port-A-Cath placed. He started treatment, 10/14/2021. He underwent an EKG and cardiac echo. These are normal. He was given a prescription for Ensure, by Dr. Corbett. He had issues with transportation. Arrangements have been made, to help him with that. Database: Labs from 10/28: CBC: WBC 4.2, HGB 10.4, HCT 32.9, PLT 220. CMP: Lytes WNL, glucose 79, BUN 16, SUSTAIN ENGINEER 0.82. LFTs: 0.4/102/09/08. Database from 12/30: CBC: WBC 2.5, HGB 10.9, HCT 35.1, PLT 171. CMP: Lytes WNL, BUN 15, SUSTAIN ENGINEER 0.87, glucose is 122. Isai 9.4, ALB 3.8. LFTs: 0.8/102/. Database from 02/10: CBC: WBC 12.7, HGB 9.5, HCT 38, MCV 96.9, PLT 103. CMP: Lytes WNL, glucose 119, BUN 11, SUSTAIN ENGINEER 0.85. Cl 8.9, a lb 3.5. LFTs: 0.2/177/. CEA level: 80, down from 153, back in 10/12. Database from 03/31: CBC: WBC 6.9, HGB 9.3,HCT 30, PLT 153. CMP: LYTES WNL, GLUCOSE 89, BUN 19, SUSTAIN ENGINEER 0.78. LFTS: <0.2/160 12/15/2020. Baseline CEA from September 30: 153.20. CEA from 01/01:80. CEA from 03/03: 7.30. His GI symptoms, have resolved. That is a good sign that he is responding. He seems to be tolerating the treatment very well. He is on cycle 7 day 14 this week. l proceeded with re-staging with imaging, on 02/28: Interval decrease in wall thickening of the distal stomach and probable ulcerative mass adjacent to the distal stomach/proximal duodenum to the head of the pancreas. Small perigastric lymph nodes. Fat stranding and small nodules in the fat inferior to the stomach questionable for evidence of peritoneal disease versus post operative change from gastrojejunostomy. Previously identified liver lesions are not appreciated on noncontrast imaging. New wall thickening of the proximal right colon questionable for colitis. This is encouraging. He is tolerating the treatment now that it has been changed to q. 3 weeks schedule instead of Q 2. He has some urinary frequency. His UA is negative. PLAN: He will receive this cycle, and then be restaged. The plan is to continue him on the current regimen, for as long as he tolerates it and it works. He will return in 3 weeks for a follow-up. He will be following up with Neurology for the neuropathy. Will refer him to Urology due to the urinary frequency. All his questions were answered to his satisfaction. Thank you, CC: Dr. Corbett. Dr. Brush. - Time Spent With Patient Time Spent with Patient (in minutes): 30
[2022-06-24 11:20] LABS: Appearance Urine Clear; Color Urine Yellow; Glucose Urine UA Negative (Negative); Leukocyte Esterase Urine Negative (Negative); Nitrite Urine Negative (Negative); PH 5.5 (5.0-9.0); Specific Gravity - Urine 1.015 (1.005-1.025); Urine Blood Negative (Negative); Urine Ketones Negative (Negative); Urine Protein Negative (Neg-Trace)
[2022-06-24] MEDS: Leucovorin Calcium 700 MG in Dextrose 5 % 250 ML 142.5 MG IV (11:49)
--- NOTE | 2022-06-24 12:30 | HO.HEMONCSCH ---
CT scan sent to [facility].
[2022-06-24] MEDS: fluorouraciL 4,175 MG in 0.9 % Sodium Chloride 8.5 ML IV (14:24)
--- NOTE | 2022-06-24 15:44 | MHC.HEMONC ---
Here for C16 D1 Folfox/Herceptin. Labs done at home 06/23 reviewed. Port accessed with good blood return noted. Pt states he has been very fatigued. Also states he stopped taking the duloxitine, and states it is not helping his neuropathy. He hasn't taken it in a week, and states his appetite has picked up some. Had the start of a mouth sore, and used magic mouthwash with good effects. Premeds given as ordered. Treatment done and tolerated well. Dr Conroy in to see pt for follow up. CT scans ordered, and given to Esthela GAY to place in [facility]. Departure packet given. Pt home with infusion pump, and scheduled for pump take down in 2 days.
[2022-06-26] MEDS: Heparin Sodium,Porcine Flush 500 UNIT/5 ML SYRINGE IVFLUSH (11:57)
--- NOTE | 2022-06-26 15:09 | MHC.HEMONC ---
Here for pump take down. Tolerated treatment well. Port flushed with heparin flush and de-accessed. Next treatment scheduled in 3 weeks.
--- NOTE | 2022-07-07 10:50 | MHC.HEMONC ---
Pt left message on my phone line to call him back. When I spoke to him he told me that he has had sharp pain in his right shoulder and ribs since the middle of last night. He cannot move without it hurting. 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 He said it does hurt when he breathes but denies breathing difficulty. I told Dr Conryo about his sx. He is actually scheduled for CT Chest/Abd/Pelvis tomorrow morning so she said that should help diagnose any acute issues. I told him this and advised ice/heat and ibuprofen. I told him to call ambulance if his breathing feels compromised or if he cannot manage the pain. I will check on him later today.
--- NOTE | 2022-07-15 10:28 | HO.HEMONCPA ---
NO PA REQUIRED FOR KEYTRUDA (pembrolizumab). DRUG COVERED UNDER MEDICARE PART B BENEFITS.
[2022-07-15 10:30] VITALS: BP 116/54; PULSE 62; RESP 16; TEMP 36.6; O2SAT 96; BMI 16.7
[2022-07-15] MEDS: 0.9 % Sodium Chloride 1,000 ML 500 ML IVCONT (10:43)
--- NOTE | 2022-07-15 12:03 | PM.HEMONCPN ---
Medical Summary - Medical Summary Date of Service: 07/15/22 Chief complaint: Follow-up for: Gastric carcinoma. Medical Summary: DIAGNOSIS: GASTRIC CARCINOMA. STAGE IV DISEASE. CURRENT THERAPY: FOLFOX PLUS HERCEPTIN, started on 10/15. Second cycle: 11/12. Third cycle: 12/10. Cycle 3. Day 14: 12/31. Had cycle 7 day 14 on 05/13. Completed cycle 6. Interval History Interval history: Jeffrey Schilling is a 82 year old gentleman, here for a follow-up visit. He is not feeling well. He was actually seen in the ED on 07/10. ER note: Patient is an 82-year-old male who presents to the emergency department for evaluation of right sided abdominal pain/rib pain that is radiating to the back. Onset was 1 week ago. Denies any trauma or injury. Pain has been constant but progressively worsening. It is described as aching and at times it is sharp he is unable to get comfortable. Denies any exacerbating or alleviating factors. Has trialed Tylenol without improvement. Reports that last night the pain got significantly worse. Denies any associated fever, chills, chest pain, shortness of breath, difficulty breathing, nausea, vomiting, left-sided abdominal pain, dysuria, urinary frequency/urgency/hesitancy, hematuria, bloody or dark stools, constipation or diarrhea. He does state that he has gastric cancer and he is currently on chemo. CT scan of the abdomen pelvis: 1. Interval development of bulky hepatic metastatic disease, largest measures 10 x 9 cm. 2. Distal gastric mass appears larger, around 5 cm. 3. No bowel obstruction. No ascites. 4. CT chest: IMPRESSION: 1. No intrathoracic metastases. No hilar or mediastinal mass. No effusion. He feels rather tired. At times he has to take extra naps. He has ongoing pain in his right lower chest upper quadrant. The area is very tender on touching. He he was given oxycodone. That is helping. He has some nausea but not vomiting. No symptoms of reflux. He is no longer constipated. Appetite is not that good. He does not feel like eating. He has been drinking fluids. He is losing balance. He denies headache no dizziness. No chest pain or trouble breathing. He denies abdominal pain, He denies heartburn. No nausea or vomiting. Sometimes he burps. He was constipated initially. Now with the MiraLax he has been going regular. Denies gross blood in the stools. He has been trying to take Ensure. No fever nor chills. Denies dysuria or hematuria. He has frequency of micturition.. He denies any joint pain or muscle pain. No focal weakness. He has seen the neurologist for the neuropathy. He had an appointment to follow-up on the nerve conduction velocity study. He tried the duloxetine for tingling in his hands and feet. He has had neuropathy. Sometimes he feels he is walking on james. However it did not help. His brother said he looked like a zombie, on it. He stopped. His skin is dry, nails are somewhat broken. Denies depression. No skin rashes or pruritus. Previous history: He was admitted to the hospital back in July,, with abdominal pain. He presented on 08/15/2021 to the emergency department with complaints of persistent nausea and vomiting. He reported initial symptoms of acid reflux and has been taking [id number] Zantac which was not helping. He denied fever, chills, but does report constipation. He has been taking Ex-Lax at home without significant improvement. Upon presentation to the emergency department a CT of the abdomen and pelvis revealed a dilated stomach secondary to obstructive abnormality at the antrum where there was circumferential and irregular thickening of the gastric antrum and a 1.9 cm necrotic node beneath the duodenum, worrisome for underlying neoplasm. He subsequently underwent an EGD 08/15. Findings included an ulcerated mass at the gastric outlet. Biopsies were taken. The scope was able to be manipulated through the strictured mass. Results of the biopsy are pending at this time. Surgical consultation was requested for possible partial gastrectomy. He appears cachectic but denies weight loss. Patient underwent the surgery on 08/26. 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 So surgery could not be performed. 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 He is status post gastrojejunostomy.? He developed fever/rigors over last weekend and underwent work up which was negative. Started on IV zosyn empirically. Blood cultures positive for GNR bacteria: serratia Marsenscans. Symptoms resolved. He remained afebrile >24h. White blood count: normal. Continue IV zosyn. Obtain ID consult re: GNR bacteremia and antibiotic recommendations. <lAiza Perdue PA-C - CT chest and abdomen/pelvis: No evidence of anastomotic leak or abscess. Agree with ID consultation. He was sent home on antibiotics. Family history: Mom had skin cancer. She lived to be 100 years old. 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 He currently resides in [place] in an apartment. His brother is his neighbor. He is not . He has no children. He smoked a pack-a-day. Drank socially. Review of Systems - Constitutional Reports system reviewed and no additional complaints, except as documented, Reports fatigue, Reports weakness, Reports weight loss, Denies fever(s) - Eyes Reports system reviewed and no additional complaints, except as documented - ENT Reports system reviewed and no additional complaints, except as documented - Cardiovascular Reports system reviewed and no additional complaints, except as documented - Respiratory Reports no additional respiratory complaints - Gastrointestinal Reports system reviewed and no additional complaints, except as documented, Reports abdominal pain, Reports nausea - Genitourinary Genitourinary: Reports no additional male genitourinary complaints - Musculoskeletal Reports system reviewed and no additional complaints, except as documented - Integumentary/Breasts Skin/Breast: Reports no additional skin complaints - Neurologic Reports system reviewed and no additional complaints, except as documented, Reports weakness - Psychiatric Reports system reviewed and no additional complaints, except as documented - Endocrine Reports no additional endocrine complaints - Hematologic/Lymphatic Reports system reviewed and no additional complaints, except as documented - Allergic/Immunologic Reports system reviewed and no additional complaints, except as documented PMFSH Medical History: Medical History (Last Reviewed 07/10/22 @ 08:53 by Jennifer Carroll CNP) Bacteremia Hypertension Vertigo Functional capacity: independent ambulation Patient : No Family History: Family History (Last Reviewed 07/18/22 @ 10:14 by REESE Perez) Father Past heart attack Mother Past heart attack Surgical History: Surgical History (Last Reviewed 07/18/22 @ 10:14 by REESE Perez) H/O bypass gastrojejunostomy History of appendectomy Social History: Social History (Last Reviewed 07/18/22 @ 10:14 by REESE Perez) Living Situation History: Household Members: None Housing: Apartment Do you presently have visiting nurse or other home services: No Tobacco History: Patient Tobacco Use Status: Former Tobacco user Tobacco use type: Cigarette Years Smoked: 30 Smoke Quit Date: quit 26 yr ago e-Cigarette/Vaping Use: Never Used Second Hand Smoke Exposure: No Advance Directives: Advance Directives Date on File: 11/12/21 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 occupational status: retired Oncology Screenings - ECOG Performance Status ECOG Performance Status: 0 Home Medications and Allergies Current Medications: Current Medications Heparin Sodium (Porcine) 500 (unit/ Sodium Chloride 5 ml) 0 unit IVFLUSH ONCE ONE Stop: 07/15/22 11:40 Sodium Chloride (Ns) 1,000 mls @ 500 mls/hr IVCONT .Q2H TANO Stop: 07/15/22 12:29 Last Admin: 07/15/22 10:43 Dose: 500 mls/hr Home Medications Medication Instructions Recorded Confirmed Type polyethylene glycol 3350 17 17 g PO DAILY 12/31/21 07/18/22 History gram/dose oral powder (Miralax) vitamin B complex 1 cap PO DAILY 06/03/22 07/18/22 History Allergies Allergy/AdvReac Type Severity Reaction Status Date / Time No Known Allergies Allergy Verified 07/18/22 10:15 [No Known Allergies*] Exam Vital signs: Vital Signs Temp 97.9 F 07/15/22 10:30 Pulse 62 07/15/22 10:30 Resp 16 07/15/22 10:30 BP 116/54 L 07/15/22 10:30 Pulse Ox 96 07/15/22 10:30 O2 Del Method 07/15/22 10:30 Intake & Output 07/14/22 07/15/22 07/15/22 18:59 06:59 18:59 Other: Weight 56 kg Weight in Grams 60751 Weight 56 kg BMI result Body Mass Index 16.7 - Constitutional Present: no acute distress - Routine HEENT Exam Head: Present: normal inspection Eye: Present: normal appearance ENT: Present: mucous membranes moist - Routine Neck Exam Present: full ROM - Routine Respiratory Exam Present: CTAB - Routine Cardiovascular Exam Cardiovascular: Present: RRR, S1, S2 - Routine Abdominal Exam Present: soft, nontender - Routine Extremities Exam Present: nontender - Routine Back/Spine/Pelvis Exam Back/Spine: Present: full ROM - Routine Skin Exam Present: intact - Routine Neurological Exam Present: alert, oriented X3 - Routine Psychiatric Exam Present: normal affect Data - Labs CBC & Chem 7: 03/11/22 08:28 03/11/22 08:28 Assessment and Plan Patient Active problem list reviewed?: Yes (1) Gastric adenocarcinoma Status: Acute Assessment and plan: 81 year old gentleman with gastric outlet obstruction. EGD showed a gastric mass. 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 I recommended Pre-op chemotherapy, followed by surgery if feasible. Patient was evaluated by general surgery and GI. They recommended to proceed with surgical resection. He underwent the surgery on 08/26. 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 So surgery could not be performed. 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 He is status post gastrojejunostomy.? Hospital course was complicated rather development of fever/rigors. He underwent work up which was negative. He was started on IV zosyn empirically. Blood cultures positive for GNR bacteria: Serratia Marsenscans. Symptoms resolved. He remained afebrile >24h. White blood count: normal. Continue IV zosyn. Obtain ID consult re: GNR bacteremia and antibiotic recommendations. CT chest and abdomen/pelvis: No evidence of anastomotic leak or abscess. He was sent home on antibiotics. He is now here for a follow-up visit. He has HER2 positive disease. l checked PDL1: 1. MSI. Since he has stage IV disease the plan is to treat him with palliative systemic chemotherapy: FOLFOX plus trastuzumab. He had a PET scan for staging, on Sunday 10/08: 1. An intensely FDG avid right upper quadrant mass is contiguous with intensely FDG avid wall thickening in the pyloric region of the distal stomach. This is most likely a primary malignancy. 2. Multiple FDG avid liver metastases are present. 3. No additional abnormalities suspicious for other metastatic or malignant lesions are noted. 4. Vascular calcifications including coronary are noted. Details of the regimen including potential side effects of nausea vomiting diarrhea, cold toxicity, peripheral neuropathy, renal toxicity, pancytopenia, need for antibiotics and blood transfusion as well as growth factors were all addressed with him. He understood and was willing to proceed. He had a Port-A-Cath placed. He started treatment, 10/14/2021. He underwent an EKG and cardiac echo. These are normal. He was given a prescription for Ensure, by Dr. Corbett. He had issues with transportation. Arrangements have been made, to help him with that. Database: Labs from 10/28: CBC: WBC 4.2, HGB 10.4, HCT 32.9, PLT 220. CMP: Lytes WNL, glucose 79, BUN 16, BOAT ENGINES INSTALLER 0.82. LFTs: 0.4/102/09/08. Database from 12/30: CBC: WBC 2.5, HGB 10.9, HCT 35.1, PLT 171. CMP: Lytes WNL, BUN 15, BOAT ENGINES INSTALLER 0.87, glucose is 122. Isai 9.4, ALB 3.8. LFTs: 0.8/102. Database from 02/10: CBC: WBC 12.7, HGB 9.5, HCT 38, MCV 96.9, PLT 103. CMP: Lytes WNL, glucose 119, BUN 11, BOAT ENGINES INSTALLER 0.85. Cl 8.9, a lb 3.5. LFTs: 0.2/177/. CEA level: 80, down from 153, back in 10/12. Database from 03/31: CBC: WBC 6.9, HGB 9.3,HCT 30, PLT 153. CMP: LYTES WNL, GLUCOSE 89, BUN 19, BOAT ENGINES INSTALLER 0.78. LFTS: <0.2/160 12/15/2020. Baseline CEA from September 30: 153.20. CEA from 01/01:80. CEA from 03/03: 7.30. His GI symptoms, have resolved. That is a good sign that he is responding. He seems to be tolerating the treatment very well. He is on cycle 7 day 14 this week. l proceeded with re-staging with imaging, on 02/28: Interval decrease in wall thickening of the distal stomach and probable ulcerative mass adjacent to the distal stomach/proximal duodenum to the head of the pancreas. Small perigastric lymph nodes. Fat stranding and small nodules in the fat inferior to the stomach questionable for evidence of peritoneal disease versus post operative change from gastrojejunostomy. Previously identified liver lesions are not appreciated on noncontrast imaging. New wall thickening of the proximal right colon questionable for colitis. He has had pain in his right upper quadrant area. From 07/10, CT scan of the abdomen pelvis: 1. Interval development of bulky hepatic metastatic disease, largest measures 10 x 9 cm. 2. Distal gastric mass appears larger, around 5 cm. 3. No bowel obstruction. No ascites. 4. CT chest: IMPRESSION: 1. No intrathoracic metastases. No hilar or mediastinal mass. No effusion. Unfortunately he has had disease progression. PLAN: The plan is to switch him to second-line treatment. Fortunately his PDL1 is positive, >5. He is a candidate for pembrolizumab. Will get approval and get him started in the near future. Meanwhile I will refill his oxycodone. He will return later in the week to get started. Will re-stage him after 3 cycles. Hopefully he will have a good response. We did address prognosis today. He will be following up with Neurology for the neuropathy. All his questions were answered to his satisfaction. Thank you, CC: Dr. Corbett. Dr. Brush. - Time Spent With Patient Time Spent with Patient (in minutes): 30
--- NOTE | 2022-07-15 15:49 | MHC.HEMONC ---
Pt here to see Dr Conroy to review results of CT scans. Pt is very teary, stating I just want to know how much time I have . He recently was in ED for abd pain. Is now taking oxycodone prn. He is staying for IV hydration. Port accessed with good blood return noted. NS infusing at 500cc/hr. Plan is to stop current treatment plan, and will start Pembrolizumab. Scheduled to start this 07/17. Port flushed with heparin 500units and de-accessed. Pt to return for new treatment 07/17.
--- NOTE | 2022-07-15 15:57 | MHC.HEMONC ---
Teaching done with pt for pembrolizumab including schedule, side effects, lab draws, pre-meds.
[2022-07-17 09:34] VITALS: BP 129/80; PULSE 82; RESP 18; TEMP 36.3; O2SAT 96; BMI 16.9
[2022-07-17] MEDS: diphenhydrAMINE HCL 50 MG/ML VIAL 25 MG IVPUSH (10:04)
[2022-07-17] MEDS: Ondansetron ODT 8 MG TAB.RAPDIS TRANSLINGU (10:05)
[2022-07-17] MEDS: Acetaminophen 325 MG TABLET 650 MG PO (10:05)
[2022-07-17] MEDS: Heparin Sodium,Porcine Flush 500 UNIT/5 ML SYRINGE IVFLUSH (10:35)
--- NOTE | 2022-07-17 13:21 | MHC.HEMONC ---
C1D1: PEMBRO- Labs obtained Thursday07/14/22 and reviewed. Port accessed without difficulty- positive blood return. Pre-medicated with Tylenol 650mg PO, Benadryl 25mg IV, and Zofran 8mg PO. VSS. Consent signed for Pembro [id number]. No change in reported side effects. Infusion well tolerated. Port de-accessed with Heparin. Calender provided.
--- NOTE | 2022-07-21 15:04 | MHC.HEMONC ---
Pt called office this morning to report mild bilateral ankle and foot swelling. He has no other new sx. He is fatigued. He started immunotherapy last week following several months of chemotherapy. his disease has progressed according to notes. Dr Conroy is aware and thought VNA might benefit him and he did agree. The Infusion Nurses told me that last week when he saw them he was noted to be weak and depressed. He and his brother are unable to drive and getting prescriptions etc are difficult for them. It sounds like the [facility] helps with rides at times. I suggested he elevate his feet and call us with update, worsening of swelling or new sx. He agreed. I attempted to call him this afternoon and I also attempted to call his brother Home, HCP but there was no answer.
--- NOTE | 2022-07-21 16:53 | MHC.HEMONC ---
Faxed rx to [facility] for Boost and submitted clinicals for VNA referral. Pt is aware.
--- NOTE | 2022-08-06 16:00 | MHC.HEMONC ---
Pt called me to say that he needs to cancel his chemo appt tomorrow because he isn't feeling well enough. I called him back. He has his brother with him most of the time but he is very fatigued and not moving much. His appetite is poor. I did send rx for Boost to [facility] but he never received it he said. I have left them a message to find out why. He is requesting oxycodone refill and would like 30 day supply because it is difficult for him to get out and his brother doesn't drive. I changed his f/u tomorrow to a Telehealth with Dr Conroy. Sylvie is printing labs from home draw for Dr Conroy to review as his LFT's are up.
--- NOTE | 2022-08-07 14:03 | P.PNHO-ONC_ITS ---
[facility] Telehealth - Telehealth Location of Provider rendering services: hem/onc office. Location of Patient: home Patient Identification confirmed using: Name, : Yes Telehealth Method: Via Telephone Patient verbally consented to treatment: Yes Patient verbally consented to billing insurance company: Yes Patient informed of any privacy concerns related to visit: Yes Medical Summary - Medical Summary Date of Service: 08/07/22 Chief complaint: Follow-up for: Gastric carcinoma. Medical Summary: DIAGNOSIS: GASTRIC CARCINOMA. STAGE IV DISEASE. CURRENT THERAPY: FOLFOX PLUS HERCEPTIN, started on 10/15. Second cycle: 11/12. Third cycle: 12/10. Cycle 3. Day 14: 12/31. Had cycle 7 day 14 on 05/13. Completed cycle 6. Imaging revealed progression. Started on pembrolizumab. Interval History Interval history: Jeffrey Schilling is a 82 year old gentleman, here for a follow-up visit. He is not feeling well. He felt really sick yesterday. He was due for treatment today but elected not to come. He does not have a good appetite. He has been drinking fluids. He has been tr hayley to take Ensure. He feels rather constipated. His primary cave him lactulose but that has not helped. He denies abdominal pain. He has some nausea but not vomiting. No symptoms of reflux. He denies headache no dizziness. No chest pain or trouble breathing. He denies heartburn. No nausea or vomiting. Sometimes he burps. Denies gross blood in the stools. No fever nor chills. Denies dysuria or hematuria. He has frequency of micturition.. He denies any joint pain or muscle pain. No focal weakness. He is losing balance. He has seen the neurologist for the neuropathy. He had an appointment to follow-up on the nerve conduction velocity study. He tried the duloxetine for tingling in his hands and feet. He would like to try increased dose. His skin is dry, nails are somewhat broken. Denies depression. No skin rashes or pruritus. Previous history: He was actually seen in the ED on 07/10. ER note: Patient is an 82-year-old male who presents to the emergency department for evaluation of right sided abdominal pain/rib pain that is radiating to the back. Onset was 1 week ago. Denies any trauma or injury. Pain has been constant but progressively worsening. It is described as aching and at times it is sharp he is unable to get comfortable. Denies any exacerbating or alleviating factors. Has trialed Tylenol without improvement. Reports that last night the pain got significantly worse. Denies any associated fever, chills, chest pain, shortness of breath, difficulty breathing, nausea, vomiting, left-sided abdominal pain, dysuria, urinary frequency/urgency/hesitancy, hematuria, bloody or dark stools, constipation or diarrhea. He does state that he has gastric cancer and he is currently on chemo. CT scan of the abdomen pelvis: 1. Interval development of bulky hepatic metastatic disease, largest measures 10 x 9 cm. 2. Distal gastric mass appears larger, around 5 cm. 3. No bowel obstruction. No ascites. 4. CT chest: IMPRESSION: 1. No intrathoracic metastases. No hilar or mediastinal mass. No effusion. He feels rather tired. At times he has to take extra naps. He has ongoing pain in his right lower chest upper quadrant. The area is very tender on touching. He he was given oxycodone. That is helping. He was admitted to the hospital back in July,, with abdominal pain. He presented on 08/15/2021 to the emergency department with complaints of persistent nausea and vomiting. He reported initial symptoms of acid reflux and has been taking omal-mse-cbfhlsw Zantac which was not helping. He denied fever, chills, but does report constipation. He has been taking Ex-Lax at home without significant improvement. Upon presentation to the emergency department a CT of the abdomen and pelvis revealed a dilated stomach secondary to obstructive abnormality at the antrum where there was circumferential and irregular thickening of the gastric antrum and a 1.9 cm necrotic node beneath the duodenum, worrisome for underlying neoplasm. He subsequently underwent an EGD 08/15. Findings included an ulcerated mass at the gastric outlet. Biopsies were taken. The scope was able to be manipulated through the strictured mass. Results of the biopsy are pending at this time. Surgical consultation was requested for possible partial gastrectomy. He appears cachectic but denies weight loss. Patient underwent the surgery on 08/26. 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 So surgery could not be performed. 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 He is status post gastrojejunostomy.? He developed fever/rigors over last weekend and underwent work up which was negative. Started on IV zosyn empirically. Blood cultures positive for GNR bacteria: serratia Marsenscans. Symptoms resolved. He remained afebrile >24h. White blood count: normal. Continue IV zosyn. Obtain ID consult re: GNR bacteremia and antibiotic recommendations. <Aliza Perdue PA-C - CT chest and abdomen/pelvis: No evidence of anastomotic leak or abscess. Agree with ID consultation. He was sent home on antibiotics. Family history: Mom had skin cancer. She lived to be 100 years old. 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 He currently resides in [place] in an apartment. His brother is his neighbor. He is not . He has no children. He smoked a pack-a-day. Drank socially. Review of Systems - Constitutional Reports no additional constitutional complaints, Reports poor appetite, Reports weakness, Reports weight loss - Eyes Reports no additional eye complaints - ENT Reports no additional ear, nose, mouth, and throat complaints - Cardiovascular Reports no additional cardiovascular complaints - Respiratory Reports no additional respiratory complaints - Gastrointestinal Reports no additional gastrointestinal complaints, Reports abdominal pain, Reports constipation, Reports nausea - Genitourinary Genitourinary: Reports no additional male genitourinary complaints - Musculoskeletal Reports no additional musculoskeletal complaints - Integumentary/Breasts Skin/Breast: Reports no additional skin complaints - Neurologic Reports no additional neurologic complaints, Reports weakness - Psychiatric Reports no additional psychiatric complaints - Endocrine Reports no additional endocrine complaints - Hematologic/Lymphatic Reports no additional hematologic/lymphatic complaints - Allergic/Immunologic Reports no additional allergic/immunologic complaints Home Medications and Allergies Current Medications: Current Medications Acetaminophen (Acetaminophen 325 Mg Tablet) 650 mg PO ONCE TANO Stop: 08/07/22 23:59 Diphenhydramine HCl (Diphenhydramine Hcl 50 Mg/Ml Vial) 25 mg IVPUSH ONCE TANO Stop: 08/07/22 23:59 Heparin Sodium (Porcine) (Heparin Sodium,Porcine Flush 500 Unit/5 Ml Syringe) 500 unit IVFLUSH ONCE TANO Stop: 08/07/22 23:59 Ondansetron HCl (Ondansetron Odt 8 Mg Tab.Rapdis) 8 mg TRANSLINGU ONCE TANO Stop: 08/07/22 23:59 Home Medications Medication Instructions Recorded Confirmed Type polyethylene glycol 3350 17 17 g PO DAILY 12/31/21 08/07/22 History gram/dose oral powder (Miralax) vitamin B complex 1 cap PO DAILY 06/03/22 08/07/22 History Allergies Allergy/AdvReac Type Severity Reaction Status Date / Time No Known Allergies Allergy Verified 08/07/22 14:13 [No Known Allergies*] Exam Vital signs: Vital Signs Temp 97.3 F 07/17/22 09:34 Pulse 82 07/17/22 09:34 Resp 18 07/17/22 09:34 BP 129/80 07/17/22 09:34 Pulse Ox 96 07/17/22 09:34 O2 Del Method 07/17/22 09:34 Weight 56.7 kg BMI result Body Mass Index 16.9 - Constitutional Present: no acute distress - Routine HEENT Exam Head: Present: normal inspection Eye: Present: normal appearance ENT: Present: mucous membranes moist - Routine Neck Exam Present: full ROM - Routine Respiratory Exam Present: CTAB - Routine Cardiovascular Exam Cardiovascular: Present: RRR, S1, S2 - Routine Abdominal Exam Present: soft, nontender - Routine Extremities Exam Present: nontender - Routine Back/Spine/Pelvis Exam Back/Spine: Present: full ROM - Routine Skin Exam Present: intact - Routine Neurological Exam Present: alert, oriented X3 - Routine Psychiatric Exam Present: normal affect Data - Labs CBC & Chem 7: 03/11/22 08:28 03/11/22 08:28 Assessment and Plan Patient Active problem list reviewed?: Yes (1) Gastric adenocarcinoma Status: Acute Assessment and plan: 81 year old gentleman with gastric outlet obstruction. EGD showed a gastric mass. 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 I recommended Pre-op chemotherapy, followed by surgery if feasible. Patient was evaluated by general surgery and GI. They recommended to proceed with surgical resection. He underwent the surgery on 08/26. 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 So surgery could not be performed. 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 He is status post gastrojejunostomy.? Hospital course was complicated rather development of fever/rigors. He underwent work up which was negative. He was started on IV zosyn empirically. Blood cultures positive for GNR bacteria: Serratia Marsenscans. Symptoms resolved. He remained afebrile >24h. White blood count: normal. Con tinue IV zosyn. Obtain ID consult re: GNR bacteremia and antibiotic recommendations. CT chest and abdomen/pelvis: No evidence of anastomotic leak or abscess. He was sent home on antibiotics. He is now here for a follow-up visit. He has HER2 positive disease. l checked PDL1: 1. MSI. Since he has stage IV disease the plan is to treat him with palliative systemic chemotherapy: FOLFOX plus trastuzumab. He had a PET scan for staging, on Sunday 10/08: 1. An intensely FDG avid right upper quadrant mass is contiguous with intensely FDG avid wall thickening in the pyloric region of the distal stomach. This is most likely a primary malignancy. 2. Multiple FDG avid liver metastases are present. 3. No additional abnormalities suspicious for other metastatic or malignant lesions are noted. 4. Vascular calcifications including coronary are noted. Details of the regimen including potential side effects of nausea vomiting diarrhea, cold toxicity, peripheral neuropathy, renal toxicity, pancytopenia, need for antibiotics and blood transfusion as well as growth factors were all addressed with him. He understood and was willing to proceed. He had a Port-A-Cath placed. He started treatment, 10/14/2021. He underwent an EKG and cardiac echo. These are normal. He was given a prescription for Ensure, by Dr. Corbett. He had issues with transportation. Arrangements have been made, to help him with that. Database: Labs from 10/28: CBC: WBC 4.2, HGB 10.4, HCT 32.9, PLT 220. CMP: Lytes WNL, glucose 79, BUN 16, AUTOMATIC PROFILE SHAPER OPERATOR 0.82. LFTs: 0.4/102/09/08. Database from 12/30: CBC: WBC 2.5, HGB 10.9, HCT 35.1, PLT 171. CMP: Lytes WNL, BUN 15, AUTOMATIC PROFILE SHAPER OPERATOR 0.87, glucose is 122. Isai 9.4, ALB 3.8. LFTs: 0.8/102/. Database from 02/10: CBC: WBC 12.7, HGB 9.5, HCT 38, MCV 96.9, PLT 103. CMP: Lytes WNL, glucose 119, BUN 11, AUTOMATIC PROFILE SHAPER OPERATOR 0.85. Cl 8.9, a lb 3.5. LFTs: 0.2/177//24. CEA level: 80, down from 153, back in 10/12. Database from 03/31: CBC: WBC 6.9, HGB 9.3,HCT 30, PLT 153. CMP: LYTES WNL, GLUCOSE 89, BUN 19, AUTOMATIC PROFILE SHAPER OPERATOR 0.78. LFTS: <0.2/160 12/15/2020. Baseline CEA from September 30: 153.20. CEA from 01/01:80. CEA from 03/03: 7.30. His GI symptoms, have resolved. That is a good sign that he is responding. He seems to be tolerating the treatment very well. He is on cycle 7 day 14 this week. l proceeded with re-staging with imaging, on 02/28: Interval decrease in wall thickening of the distal stomach and probable ulcerative mass adjacent to the distal stomach/proximal duodenum to the head of the pancreas. Small perigastric lymph nodes. Fat stranding and small nodules in the fat inferior to the stomach questionable for evidence of peritoneal disease versus post operative change from gastrojejunostomy. Previously identified liver lesions are not appreciated on noncontrast imaging. New wall thickening of the proximal right colon questionable for colitis. He has had pain in his right upper quadrant area. From 07/10, CT scan of the abdomen pelvis: 1. Interval development of bulky hepatic metastatic disease, largest measures 10 x 9 cm. 2. Distal gastric mass appears larger, around 5 cm. 3. No bowel obstruction. No ascites. 4. CT chest: IMPRESSION: 1. No intrathoracic metastases. No hilar or mediastinal mass. No effusion. Unfortunately he had disease progression. He has been switched to second-line treatment. Fortunately his PDL1 was positive, >5. He was deemed a candidate for pembrolizumab. He was started on it. Had he did not come in for it today. Database from 08/04: CBC: WBC 6.7, HGB 11.1, HCT 33.9, PLT 229. CMP: Lytes WNL, glucose 77, BUN 20, AUTOMATIC PROFILE SHAPER OPERATOR 0.65. LFTs: 2.7/724/160/32. CEA: 95.7. PLAN: He was given Megace for appetite. Senokot for constipation. He will return next week to resume his treatment. Will re-stage him after completion of 3 cycles. Hopefully he will have a good response. We did address prognosis. He does understand the guarded nature. He will increase the duloxetine dose for the neuropathy. Meanwhile I will refill his oxycodone. All his questions were answered to his satisfaction. 25 minutes was spent on the tele visit, on the interview, review of labs, review of imaging and counseling the patient. Thank you, CC: Dr. Corbett. Dr. Brush. - Time Spent With Patient Time Spent with Patient (in minutes): 25
--- NOTE | 2022-08-07 16:20 | MHC.HEMONCMA ---
Pt had a televisit. Clinical summary reviewed and updated. Pt to return in 2 weeks for chemo.
== END 2022-08-23 | disposition home or self-care (01) ==
LOC: HO.ONC 15:00
PROVIDERS: Nurse Practitioner Family; Surgery; PCP Internal Medicine; Visit Provider Internal Medicine Medical Oncology
DX: C16.9 Malignant neoplasm of stomach, unspecified (principal); C78.6 Secondary malignant neoplasm of retroperitoneum and peritoneum; D70.9 Neutropenia, unspecified; G62.9 Polyneuropathy, unspecified; K59.00 Constipation, unspecified; Z79.891 Long term (current) use of opiate analgesic
CPT/HCPCS: 36415; 80053; 81003; 82378; 84153; 85007; 85025; 85027; 86704; 86706; 86803; 86850; 86900; 86901; 87340; 88341; 88342; 88360; 96360; 96361; 96366; 96368; 96372; 96375; 96411; 96413; 96415; 96416; 96417; 96523; 99211; 99213; 99214; J0640; J1100; J1200; J1447; J1642; J2405; J2506; J9190; J9263; J9271; J9355; Q0163; Q3014

== ENCOUNTER 2022-08-10 13:45 | Inpatient (IN) | payer MEDICARE, MEDICAID, SELFPAY ==
--- NOTE | ~2022-08-10 | XR_ITS ---
EXAMINATION: XR CHEST CLINICAL INFORMATION: Hypotensive COMPARISON: 08/10/2022 TECHNIQUE: Frontal view of the chest was obtained. FINDINGS: Right IJ port catheter tip lies in the region of the distal SVC. Slight elevation of the right hemidiaphragm is redemonstrated. Somewhat coarsened appearance of the interstitium is noted. There is patchy airspace opacity at the retrocardiac left base. No evidence of pneumothorax, significant pleural effusion, or overt pulmonary edema. Cardiac size is within normal limits. Calcification is present at the aortic arch. No acute osseous findings are seen. Free air is noted in the upper abdomen. XR/XR chest 1V IMPRESSION: 1. Patchy retrocardiac left basilar opacity which could reflect atelectasis or developing consolidation in the proper clinical setting. 2. Free air in the upper abdomen, in keeping with perforated viscus in the absence of recent abdominal surgery. This critical result was discussed with Dr. Prasad on 08/22/2022 6:55 AM, and it was ascertained that the content and urgency of the report was understood at the time of direct communication.
--- NOTE | ~2022-08-10 | CT_ITS ---
EXAMINATION: CT CHEST, ABDOMEN AND PELVIS WITH CONTRAST. CLINICAL INFORMATION: h/o gastric cancer, r/o malignancy . COMPARISON: Prior studies dated 8 07/08/2022 study TECHNIQUE: Multidetector volumetric imaging was performed from the thoracic inlet through the pubic symphysis following administration of 100 mL Omnipaque 300 intravenous contrast. Sagittal and coronal reformatted images were obtained on the technologist's workstation. This CT examination was performed using dose optimization techniques as appropriate, variously including the following: *Automated exposure control *Adjustment of mA and/or kV according to patient size (this includes techniques or standardized protocols for targeted exams where dose is matched to indication/reason for exam; i.e. extremities or head) *Use of iterative reconstruction technique DLP: 848 mGy-cm FINDINGS: CHEST: Lung: Tiny calcified granulomas in the right lower lobe. Tubular mucous impacted bronchi incidentally noted in the right upper lobe. There is a new focal wedge-shaped region of airspace disease in the posterior aspect of the left lower lobe possibly due to atelectasis although early infiltrate could have a similar appearance. I do not appreciate any new or suspicious pulmonary nodules. There are chronic appearing regions of linear scarring bilaterally. Central airways are grossly unremarkable. Lungs are grossly hyperinflated Mediastinum: Prominent vascular calcification within the aorta and coronary vessels. No bulky hilar or mediastinal adenopathy. Pericardium/Pleura: No significant effusion. No pleural mass or thickening. Chest Wall/Axilla: Cachexia. Right-sided chest port is seen with the tip near the cavoatrial junction. ABDOMEN/PELVIS: Peritoneal Space:Small amount of abdominal ascites is seen, increased from the prior examination. Liver, Gallbladder, Biliary Tree: Again the innumerable mass lesions seen within the liver. The largest right lobe lesion currently measures up to 12.3 cm in size and the largest lesion crosses the right and left lobe measures 13.7 cm in size. When measured in similar orientation on the prior 07/08/2022 study these measured 8.3 and 9.3 cm in size consistent with significant interval growth. There are multiple smaller hepatic lesions now evident as well which have also increased in size and conspicuity. The heterogeneous hypoenhancement would be concerning for metastatic disease. The gallbladder is unremarkable with no evidence of radiopaque gallstones, gallbladder wall thickening, or obvious pericholecystic inflammatory changes. Pancreas: Unremarkable. Spleen: Unremarkable. Adrenal Glands: Mild fullness to the left adrenal gland more prominent from prior study. Right adrenal gland unremarkable. Kidneys and Ureters: Tiny hypoattenuating cortical cysts bilaterally 2 small to characterize. Otherwise the kidneys are normal in size, shape, and attenuation. No hydronephrosis, hydroureter, or calculi seen. No perinephric stranding. Bladder: Decompressed Gastrointestinal Tract: Colon is decompressed with scattered colonic diverticulosis. No colonic wall thickening or pericolonic inflammatory change to suggest diverticulitis. Distal small bowel is decompressed. Postoperative changes are seen from prior likely diverting gastrojejunostomy appears to be patent. No obstructive changes Abdominal Wall: Diffuse cachexia Lymphovascular Structures: Vascular calcification within the aorta iliac system. There is a large peripancreatic node abutting the gastric antrum. Currently this measures 5.5 x 4.6 cm in size. On the prior examination this had measured approximately 5.6 x 4.3 cm in size slightly irregular contour with possible directly adjacent confluent nodes as well. Pelvic Viscera: Unremarkable. Osseus Structures: Multilevel degenerative changes in the spine but I do not appreciate any suspicious bony lesions at this time CT/CT abdomen pelvis w IV con IMPRESSION: 1. There has been significant interval increase in the size and conspicuity of the innumerable hepatic lesions as described above. The dominant 13.7 cm lesion crossing the right and left lobes of the liver has increased in size from the prior 07/08/2022 study. There are additional smaller hepatic lesions now evident as well. The large peripancreatic lymph node has not significantly increased in size from the prior study. 2. There is a new wedge-shaped region of airspace disease in the posterior aspect of the left lower lobe. I do not appreciate any new or suspicious pulmonary nodules. Infectious or inflammatory etiologies possible. 3. Small amount of abdominal ascites is seen, increased from the prior study. 4. Chronic appearing and postoperative changes as described above. 5. There is mild fullness to the left adrenal gland more prominent from prior study.
--- NOTE | ~2022-08-10 | CT_ITS ---
EXAMINATION: CT HEAD WITHOUT CONTRAST CLINICAL INFORMATION: Weakness. COMPARISON: None TECHNIQUE: Contiguous axial imaging was performed from the skull base to vertex without intravenous administration of contrast. Coronal and sagittal reformatted images were obtained. This CT examination was performed using dose optimization techniques as appropriate, variously including the following: *Automated exposure control *Adjustment of mA and/or kV according to patient size (this includes techniques or standardized protocols for targeted exams where dose is matched to indication/reason for exam; i.e. extremities or head) *Use of iterative reconstruction technique DLP: 706 mGy-cm FINDINGS: There is mild widening of the cortical sulci and associated ventriculomegaly. The lateral ventricles are symmetrical. The third and fourth ventricles are in their normal midline position. The basilar and prepontine cisterns are unremarkable. There is no acute intra or extracerebral abnormality. There is no mass effect or midline shift. Sections through the bony calvarium are unremarkable. The orbits are intact. The paranasal sinuses are clear. The mastoid air cells are clear. Mild anterior to mid nasal septal deviation, apex of the right. Left rio bullosa. CT/CT head/brain wo IV con IMPRESSION: No acute intracranial pathology.
[2022-08-10 13:51] VITALS: BP 111/72; PULSE 75; RESP 16; TEMP 36.3; O2SAT 98; BMI 15.8
--- NOTE | 2022-08-10 14:00 | ECG_ITS ---
Test Reason : WEAKNESS Blood Pressure : / mmHG Vent. Rate : 075 BPM Atrial Rate : 075 BPM P-R Int : 128 ms QRS Dur : 094 ms QT Int : 388 ms P-R-T Axes : 083 092 081 degrees QTc Int : 433 ms Sinus rhythm with Premature supraventricular complexes Rightward axis RSR' or QR pattern in V1 suggests right ventricular conduction delay Abnormal ECG When compared with ECG of 10-JUL-2022 09:00, Premature supraventricular complexes are now Present Referred By: Jodee Philip Electronically Signed By:BJORN GONZALEZ MD
--- NOTE | 2022-08-10 14:22 | ED.WEAKNESS ---
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 Patient has been taking oxycodone for pain but feels like it is not helping. He is also complaining of constipation. No urinary symptoms, diarrhea, fever. Patient denies any cough, shortness of breath. Reviewed and collagen note from Dr. Conroy. She last saw the patient in the office on August 07. Patient was noted to have disease progression and he was switched to palliative chemotherapy. Related Data Home Medications Medication Instructions Recorded Confirmed polyethylene glycol 3350 17 17 g PO DAILY 12/31/21 08/07/22 gram/dose oral powder (Miralax) vitamin B complex 1 cap PO DAILY 06/03/22 08/07/22 Previous Rx's Medication Instructions Recorded ondansetron 8 mg disintegrating 8 mg PO Q8H #60 tabs 10/15/21 tablet Magic Mouthwash 10 ml PO QID #240 mL 12/31/21 Diphen/Lido/Antacid 1:1:1 240 mL suspension amlodipine 5 mg tablet 5 mg PO DAILY #90 caps 03/26/22 duloxetine 20 mg capsule,delayed 20 mg PO BID #60 caps 06/03/22 release oxycodone 5 mg tablet 5 mg PO Q6H PRN pain #18 tabs 07/17/22 lactulose 10 gram/15 mL (15 mL) 20 g (30 mL) PO BID #750 mL 07/18/22 oral solution duloxetine 40 mg capsule,delayed 40 mg PO BID #60 caps 08/07/22 release sprinkle megestrol 625 mg/5 mL (125 mg/mL) 5 ml PO DAILY #200 mL 08/07/22 oral suspension oxycodone 5 mg tablet 5 mg PO Q6H PRN Breakthrough Pain, 08/07/22 Moderate #60 tabs sennosides 8.6 mg tablet (Senokot) 8.6 mg PO BID #100 tabs 08/07/22 Allergies Allergy/AdvReac Type Severity Reaction Status Date / Time No Known Allergies Allergy Verified 08/07/22 14:13 [No Known Allergies*] Review of Systems Review of Systems: Yes all other systems are reviewed and are negative Constitutional: Constitutional: Reports no additional constitutional complaints, Denies body ache(s), Denies chills, Denies fever(s), Denies headache(s) and Reports weakness Eyes: Eyes: Reports no additional eye complaints and Denies change in vision ENT: Reports system reviewed and no additional complaints, except as documented, Denies dizziness, Denies headache(s), Denies nasal congestion, Denies nasal discharge and Denies neck pain Cardiovascular: Cardiovascular: Reports no additional cardiovascular complaints, Reports chest pain, Denies leg edema and Denies dyspnea Respiratory: Respiratory: Reports no additional respiratory complaints, Denies cough and Denies dyspnea Gastrointestinal: Gastrointestinal: Reports no additional gastrointestinal complaints, Reports abdominal pain, Denies diarrhea, Reports nausea and Reports vomiting Genitourinary: Genitourinary: Denies urinary incontinence Musculoskeletal: Musculoskeletal: Reports no additional musculoskeletal complaints, Denies back pain, Denies arthralgias, Denies joint swelling, Denies neck pain, Denies numbness and Denies tingling Integumentary/Breasts: Skin/Breast: Reports system reviewed and no additional complaints, except as docu and Denies rash Neurologic: Reports system reviewed and no additional complaints, except as documented, Denies Abnormal speech present, Denies dizziness, Denies headache(s), Denies numbness, Denies tingling and Reports weakness PMFSH Past Medical History Attestation statement: The following information was validated with the patient. Source: old records reviewed and nursing notes reviewed Medical History Bacteremia Hypertension Vertigo Surgical History H/O bypass gastrojejunostomy History of appendectomy Family History Family History Father Past heart attack Mother Past heart attack Social History Social History Household Members: None Housing: Apartment Do you presently have visiting nurse or other home services: No Alcohol intake: unknown Patient Tobacco Use Status: Former Tobacco user Quit Date: quit 26 yr ago Tobacco use type: Cigarette Years Smoked: 30 e-Cigarette/Vaping Use: Never Used Second Hand Smoke Exposure: No Advance Directives: Yes Advance Directives on File: Yes Advance Directives Date on File: 11/12/21 service: Yes Current occupational status: retired Cognitive needs: No Hearing needs: No Vision needs: Yes Physical Exam Vital Signs: Vital Signs: Last Vital Signs Temp 97.4 F 08/10/22 16:00 Pulse 72 08/10/22 16:00 Resp 16 08/10/22 16:00 BP 125/78 08/10/22 16:00 Pulse Ox 98 08/10/22 16:00 O2 Del Method 08/10/22 16:00 BMI result Body Mass Index 15.8 Const: Other: cachetic appearing General: alert Orientation/consciousness: patient oriented x3 Limitations: no limitations HEENT: Head: Yes normal to inspection Ears: hearing grossly normal bilaterally General nose exam: Normal external nose present Face and sinus: Yes normal facial exam Mouth: Normal oral and palatal mucosa present Throat: Yes posterior oropharynx normal Eyes: General: appearance normal, both eyes and all related structures Pupils: Equal, round and reactive pupils present Neck: Neck: Yes normal visual inspection Chest: Chest palpation & inspection: normal inspection of the chest and tenderness (right chest wall tenderness) Resp: Effort & Inspection: normal respiratory effort Auscultation: clear to auscultation bilaterally Cardio: Rate: regular rate Rhythm: regular rhythm Peripheral pulses: Peripheral pulses 2+ throughout GI: Inspection: Yes normal to inspection Palpation (GI): Soft to palpation and Tenderness to palpation present (GI) (right abdomen ) Auscultation: normal bowel sounds Back/Spine/Pelvis: Thoracic/Lumbar Spine: thoracic and lumbar spine normal to inspection Skin: General skin exam: no rashes or lesions noted Neuro: General: patient oriented x3, no focal motor deficits and normal sensation to monofilament Cranial nerves: Yes Equal, round and reactive pupils present Cognition (Neuro): normal cognition Speech: No Abnormal speech present Gait exam (Neuro): Normal gait present Motor exam (neuro): 5/5 motor strength present throughout Extrem: General: Yes normal to inspection Course Course Course Narrative: CT shows worsening metastatic disease which is likely causing the patient's pain. Patient is COVID positive. No hypoxia or tachypnea. Labs show mild dehydration. Patient is receiving fluids. Patient has required several rounds of IV pain medication for pain control. Patient has been taking oxycodone at home orally with continued pain. Reevaluation(s) Reevaluation #1: [id number] discussion with patient and his brother on the phone about the patient's prognosis, goals of care. At this time they are not ready to make any decisions and would like some time to do so. At this time patient full code. Discussed case with Dr Lundberg who accepted admission. Medications Administered Discontinued Medications Generic Name Dose Route Start Last Admin Trade Name Freq PRN Reason Stop Dose Admin Hydromorphone HCl 1 mg 08/10/22 16:32 08/10/22 16:36 Hydromorphone Hcl 1 Mg/Ml Syringe IVPUSH 08/10/22 16:33 1 mg ONCE ONE Administration Protocol Sodium Chloride 1,000 mls @ 999 mls/hr 08/10/22 15:15 08/10/22 17:16 Ns IV 08/10/22 16:15 Infused .Q1H1M TANO Infusion Iohexol 85 ml 08/10/22 15:57 08/10/22 15:58 Iohexol 350 Mg/Ml 100 Ml Infus..Btl IV 08/10/22 15:58 85 ml ONCE ONE Administration Morphine Sulfate 4 mg 08/10/22 15:12 08/10/22 16:00 Morphine Sulfate 4 Mg/Ml Cartridge IVPUSH 08/10/22 15:13 4 mg ONCE ONE Administration Protocol Ondansetron HCl 4 mg 08/10/22 15:12 08/10/22 16:00 Ondansetron Hcl 4 Mg/2 Ml Vial IVPUSH 08/10/22 15:13 4 mg ONCE ONE Administration MDM - Weakness MDM Narrative Medical decision making narrative: This is an 82-year-old male with a history of gastric cancer with recent progression of disease now with hepatic Mets with reports of 2 days of generalized weakness, increasing pain in the abdomen and chest wall with vomiting. Sounds like failure to thrive. Patient will have labs including blood cultures and lactic acid, UA, EKG, COVID screen, CT head, chest and abdomen to rule out further mets Will will give IV fluids, analgesia. Will discuss goals of care with the patient Medical Records Attestation: I reviewed the patient's medical records. Lab Data Attestation: I reviewed the patient's lab results. Result diagrams: 08/10/22 14:22 08/10/22 14:22 Labs: Lab Results 08/10/22 08/10/22 08/10/22 Range/Units 14:21 14:22 14:22 WBC 6.5 (4.8-10.8) X10*3/uL RBC 3.45 L (4.60-5.80) X10*6/uL Hgb 11.1 L (14.0-18.0) g/dl Hct 33.8 L (42.0-52.0) % MCV 98.0 (80.0-98.0) fL MCH 32.2 (27.0-33.0) pg MCHC 32.8 (31.0-36.0) g/dl RDW 20.5 H (11.0-16.0) % Plt Count 261 (160-400) X10*3/uL MPV 10.4 (9.4-12.4) fL Immature Gran % (Auto) 0.6 H (0.0-0.4) % Neut % (Auto) 77.4 H (45-73) % Lymph % (Auto) 10.7 L (20-40) % [place] % (Auto) 10.8 (2-11) % Eos % (Auto) 0.2 (0-4) % Baso % (Auto) 0.3 (0-2) % Lymph # (Auto) 0.7 L (1.2-4.9) X10*3/uL [place] # (Auto) 0.7 (0.1-1.2) X10*3/uL Eos # (Auto) 0.0 (0.0-0.4) X10*3/uL Baso # (Auto) 0.0 (0.0-0.2) X10*3/uL Abs Immat Gran (auto) 0.04 H (0.00-0.03) X10*3/uL Absolute Neuts (auto) 5.0 (2.0-8.3) x10*3/uL Absolute Nucleated RBC 0.000 (0.0-0.012) X10*3/uL Nucleated RBC % (auto) 0.0 (0.0-0.2) /100WBC Sodium 130 L (135-145) mmol/L Potassium 5.2 H (3.3-5.1) mmol/L Chloride 95 L (96-108) mmol/L Carbon Dioxide 24 (22-29) mmol/L Anion Gap 16 (12-20) BUN 41 H D (9-16) mg/dL Creatinine 1.03 (0.5-1.4) mg/dL Estim Creat Clear Calc 42.8 Estimated GFR > 60 Random Glucose 71 (60-115) mg/dL Lactic Acid (0.5-2.0) mmol/L Calcium 8.9 D (8.4-10.2) mg/dL Magnesium 2.4 (1.6-2.6) mg/dL Total Bilirubin 4.3 H (0.0-1.0) mg/dL Direct Bilirubin 3.1 H (0.0-0.5) mg/dL AST 151 H (5-37) U/L ALT 36 (0-40) U/L Alkaline Phosphatase 864 H D (39-117) U/L Troponin I High Sens (<3.5-35.0) ng/L Total Protein 7.3 (6.5-8.0) g/dL Albumin 2.5 L D (3.5-5.0) g/dL COVID-19 ([facility]) Positive A (Negative) COVID-19 Clin Com See Note 08/10/22 08/10/22 Range/Units 14:22 14:22 WBC (4.8-10.8) X10*3/uL RBC (4.60-5.80) X10*6/uL Hgb (14.0-18.0) g/dl Hct (42.0-52.0) % MCV (80.0-98.0) fL MCH (27.0-33.0) pg MCHC (31.0-36.0) g/dl RDW (11.0-16.0) % Plt Count (160-400) X10*3/uL MPV (9.4-12.4) fL Immature Gran % (Auto) (0.0-0.4) % Neut % (Auto) (45-73) % Lymph % (Auto) (20-40) % [place] % (Auto) (2-11) % Eos % (Auto) (0-4) % Baso % (Auto) (0-2) % Lymph # (Auto) (1.2-4.9) X10*3/uL [place] # (Auto) (0.1-1.2) X10*3/uL Eos # (Auto) (0.0-0.4) X10*3/uL Baso # (Auto) (0.0-0.2) X10*3/uL Abs Immat Gran (auto) (0.00-0.03) X10*3/uL Absolute Neuts (auto) (2.0-8.3) x10*3/uL Absolute Nucleated RBC (0.0-0.012) X10*3/uL Nucleated RBC % (auto) (0.0-0.2) /100WBC Sodium (135-145) mmol/L Potassium (3.3-5.1) mmol/L Chloride (96-108) mmol/L Carbon Dioxide (22-29) mmol/L Anion Gap (12-20) BUN (9-16) mg/dL Creatinine (0.5-1.4) mg/dL Estim Creat Clear Calc Estimated GFR Random Glucose (60-115) mg/dL Lactic Acid 2.5 H* (0.5-2.0) mmol/L Calcium (8.4-10.2) mg/dL Magnesium (1.6-2.6) mg/dL Total Bilirubin (0.0-1.0) mg/dL Direct Bilirubin (0.0-0.5) mg/dL AST (5-37) U/L ALT (0-40) U/L Alkaline Phosphatase (39-117) U/L Troponin I High Sens < 3.5 (<3.5-35.0) ng/L Total Protein (6.5-8.0) g/dL Albumin (3.5-5.0) g/dL COVID-19 ([facility]) (Negative) COVID-19 Clin Com Imaging Data CT scan - head: Attestation: I personally reviewed and interpreted this imaging study as follows: Radiologist's impression: FINDINGS: There is mild widening of the cortical sulci and associated ventriculomegaly. The lateral ventricles are symmetrical. The third and fourth ventricles are in their normal midline position. The basilar and prepontine cisterns are unremarkable. There is no acute intra or extracerebral abnormality. There is no mass effect or midline shift. Sections through the bony calvarium are unremarkable. The orbits are intact. The paranasal sinuses are clear. The mastoid air cells are clear. Mild anterior to mid nasal septal deviation, apex of the right. Left iro bullosa. CT/CT head/brain wo IV con IMPRESSION: No acute intracranial pathology. CT scan - chest: Attestation: I personally reviewed and interpreted this imaging study as follows: Radiologist's impression: IMPRESSION: 1.? There has been significant interval increase in the size and conspicuity of the innumerable hepatic lesions as described above. The dominant 13.7 cm lesion crossing the right and left lobes of the liver has increased in size from the prior 07/08/2022 study. There are additional smaller hepatic lesions now evident as well. The large peripancreatic lymph node has not significantly increased in size from the prior study. 2.? There is a new wedge-shaped region of airspace disease in the posterior aspect of the left lower lobe. I do not appreciate any new or suspicious pulmonary nodules. Infectious or inflammatory etiologies possible. 3.? Small amount of abdominal ascites is seen, increased from the prior study. 4.? Chronic appearing and postoperative changes as described above. 5.? There is mild fullness to the left adrenal gland more prominent from prior study. ? CT scan - abdomen: Attestation: I personally reviewed and interpreted this imaging study as follows: Radiologist's impression: IMPRESSION: 1.? There has been significant interval increase in the size and conspicuity of the innumerable hepatic lesions as described above. The dominant 13.7 cm lesion crossing the right and left lobes of the liver has increased in size from the prior 07/08/2022 study. There are additional smaller hepatic lesions now evident as well. The large peripancreatic lymph node has not significantly increased in size from the prior study. 2.? There is a new wedge-shaped region of airspace disease in the posterior aspect of the left lower lobe. I do not appreciate any new or suspicious pulmonary nodules. Infectious or inflammatory etiologies possible. 3.? Small amount of abdominal ascites is seen, increased from the prior study. 4.? Chronic appearing and postoperative changes as described above. 5.? There is mild fullness to the left adrenal gland more prominent from prior study. ? ECG Data Attestation: I personally reviewed and interpreted this ECG as follows: ECG interpretation date: 08/10/22 ECG interpretation time: 15:55 Interpretation: Sinus rhythm with PVCs with rate of 75, normal CT, normal QRS, normal QT Discharge Plan Discharge Clinical Impression: Gastric mass, Liver metastases, Intractable abdominal pain, Elevated BUN Patient Disposition: Admitted As Inpatient
[2022-08-10 14:30] LABS: MANUAL DIFF FLAG NO
[2022-08-10 14:32] LABS: Basophils Percent Auto 0.3 % (0-2); Eosinophils Percent Auto 0.2 % (0-4); Hematocrit 33.8 % (42.0-52.0); Hemoglobin 11.1 g/dl (14.0-18.0); Imm Gran Abs Auto 0.04 X10*3/uL (0.00-0.03); Imm Gran Pct Auto 0.6 % (0.0-0.4); Lymphocytes Absolute Auto 0.7 X10*3/uL (1.2-4.9); Lymphocytes Percent Auto 10.7 % (20-40); Mean Corpuscular HGB Conc 32.8 g/dl (31.0-36.0); Mean Corpuscular Hemoglobin 32.2 pg (27.0-33.0); Mean Platelet Volume 10.4 fL (9.4-12.4); Monocytes Absolute Auto 0.7 X10*3/uL (0.1-1.2); Monocytes Percent Auto 10.8 % (2-11); Neutrophils Percent Auto 77.4 % (45-73); Platelet Count 261 X10*3/uL (160-400); Red Blood Count 3.45 X10*6/uL (4.60-5.80); Red Cell Distribution Width 20.5 % (11.0-16.0); White Blood Count 6.5 X10*3/uL (4.8-10.8)
[2022-08-10 14:41] LABS: COVID-19 Test Positive (Negative); IDNOW Serial# 55D5AD1C
[2022-08-10 14:47] LABS: Alanine Aminotransferase 36 U/L (0-40); Albumin Level 2.5 g/dL (3.5-5.0); Alkaline Phosphatase 864 U/L (39-117); Anion Gap 16 (12-20); Aspartate Amino Transferase 151 U/L (5-37); Bilirubin Direct 3.1 mg/dL (0.0-0.5); Bilirubin Total 4.3 mg/dL (0.0-1.0); Blood Urea Nitrogen 41 mg/dL (9-16); Calcium 8.9 mg/dL (8.4-10.2); Carbon Dioxide 24 mmol/L (22-29); Chloride 95 mmol/L (96-108); Creatinine Clr Calc Pharmacy 42.8; Estimated Glomerular Filt Rate > 60; Glucose Random 71 mg/dL (60-115); Magnesium 2.4 mg/dL (1.6-2.6); Potassium 5.2 mmol/L (3.3-5.1); Sodium 130 mmol/L (135-145); Total Protein 7.3 g/dL (6.5-8.0)
[2022-08-10 14:50] LABS: Lactic Acid 2.5 mmol/L (0.5-2.0)
[2022-08-10 14:54] LABS: Troponin-I High Sensitivity < 3.5 ng/L (<3.5-35.0)
[2022-08-10] MEDS: iohexoL 350 MG/ML 100 ML INFUS..BTL 85 ML IV (15:58)
[2022-08-10 16:00] VITALS: BP 125/78; PULSE 72; RESP 16; TEMP 36.3; O2SAT 98
[2022-08-10] MEDS: ondansetron HCL 4 MG/2 ML VIAL IVPUSH (16:00)
[2022-08-10] MEDS: 0.9 % Sodium Chloride 1,000 ML 999 ML IV (16:00)
[2022-08-10] MEDS: Morphine Sulfate 4 MG/ML CARTRIDGE IVPUSH (16:00)
[2022-08-10 16:29] LABS: Reflex Lactate? Lactic Acid Added
[2022-08-10] MEDS: HYDROmorphone HCl 1 MG/ML SYRINGE IVPUSH (16:36)
[2022-08-10 17:53] VITALS: BP 161/93; PULSE 70; RESP 16; TEMP 36.2; O2SAT 98
--- NOTE | 2022-08-10 18:02 | P.HPHOSP_ITS ---
History of Present Illness Date of Service: 08/10/22 Chief Complaint: Intractable pain An 82 years old male with gastric cancer with liver Mets who presents to the hospital with worsening chest and abdominal pain, decreased oral intake. The patient was sleepy at time of interview. Reports he has been taking oxy codone for pain but is not helping. He has been following with Oncology as outpatient and ongoing with palliative chemotherapy. In the emergency was found to have COVID positive status, hyponatremia, hyperkalemia with associated elevated liver enzymes. Required multiple doses of IV pain medication to control his pain. Admitted for further evaluation and treatment. Review of Systems Review of Systems: No fever, chills but has generalized weakness No chest pain, palpitation No shortness of breath or coughing Reporting abdominal pain with decreased oral intake No urinary symptoms No reported rash PMFSH Medical History Bacteremia Gastric adenocarcinoma Gastric out let obstruction Hypertension Liver metastases Vertigo Family History Father Past heart attack Mother Past heart attack Surgical History H/O bypass gastrojejunostomy History of appendectomy S/P bypass gastrojejunostomy Social History Household Members: None Housing: Apartment Do you presently have visiting nurse or other home services: No Alcohol intake: unknown Patient Tobacco Use Status: Former Tobacco user Quit Date: quit 26 yr ago Tobacco use type: Cigarette Years Smoked: 30 e-Cigarette/Vaping Use: Never Used Second Hand Smoke Exposure: No Advance Directives: Yes Advance Directives on File: Yes Advance Directives Date on File: 11/12/21 service: Yes Current occupational status: retired Cognitive needs: No Hearing needs: No Vision needs: Yes Meds Allergies Allergy/AdvReac Type Severity Reaction Status Date / Time No Known Allergies Allergy Verified 08/07/22 14:13 [No Known Allergies*] Active Medications: Current Medications Heparin Sodium (Porcine) (Heparin Sodium,Porcine 5,000 Unit/Ml Vial) 5,000 unit SUBCUT Q8H TANO Hydromorphone HCl (Hydromorphone Hcl 1 Mg/Ml Syringe) 1 mg IVPUSH Q4H PRN; Protocol PRN Reason: Pain, Severe (Pain Scale 7-10) Sodium Chloride (Ns) 1,000 mls @ 125 mls/hr IVCONT .Q8H TANO Ondansetron HCl (Ondansetron Hcl 4 Mg/2 Ml Vial) 4 mg IVPUSH Q8H PRN PRN Reason: Nausea and Vomiting Pharmacy Consult (Consult Rx Perform Med Rec) 1 each MISCELLANE ONCE PRN PRN Reason: Consult order Sodium Chloride (0.9 % Sodium Chloride Flush 3 Ml Syringe) 3 ml IVFLUSH QSHIFT TANO Sodium Polystyrene Sulfonate (Sodium Polystyrene Sulfon/Sorb 15 Gm/60 Ml Oral.Susp) 30 gm PO ONCE ONE Stop: 08/10/22 17:57 Home Medications Medication Instructions Recorded Confirmed Last Taken Type polyethylene glycol 3350 17 17 g PO DAILY 12/31/21 08/07/22 Unknown History gram/dose oral powder (Miralax) vitamin B complex 1 cap PO DAILY 06/03/22 08/07/22 Unknown History Physical Exam Vital Signs and Narrative: Vital Signs: Last Vital Signs Temp 97.4 F 08/10/22 16:00 Pulse 72 08/10/22 16:00 Resp 16 08/10/22 16:00 BP 125/78 08/10/22 16:00 Pulse Ox 98 08/10/22 16:00 O2 Del Method 08/10/22 16:00 BMI result Body Mass Index 15.8 Const: Other: Constitutional : Awake, interactive but sleepy and frail, cachectic looking Neck : Normal inspection, Supple Cardiovascular : RRR, no JVP, no lower extremity edema Respiratory : good bilateral air entry, no crackles, wheezes or rhonchi Gastrointestinal: soft, lax, Normal bowel sounds, generalized mild tenderness Skin : Warm, Dry Neurological : Alert & oriented x3, No focal deficit Results Labs CBC and Chem 7: 08/10/22 14:22 08/10/22 14:22 Labs: Laboratory Results - last 24 hr 08/10/22 08/10/22 08/10/22 14:21 14:22 14:22 MCV 98.0 MCH 32.2 MCHC 32.8 RDW 20.5 H Plt Count 261 MPV 10.4 Immature Gran % (Auto) 0.6 H Neut % (Auto) 77.4 H Lymph % (Auto) 10.7 L [place] % (Auto) 10.8 Eos % (Auto) 0.2 Baso % (Auto) 0.3 Lymph # (Auto) 0.7 L [place] # (Auto) 0.7 Eos # (Auto) 0.0 Baso # (Auto) 0.0 Abs Immat Gran (auto) 0.04 H Absolute Neuts (auto) 5.0 Absolute Nucleated RBC 0.000 Nucleated RBC % (auto) 0.0 Anion Gap 16 Estim Creat Clear Calc 42.8 Estimated GFR > 60 Random Glucose 71 Lactic Acid Calcium 8.9 D Magnesium 2.4 Total Bilirubin 4.3 H Direct Bilirubin 3.1 H AST 151 H ALT 36 Alkaline Phosphatase 864 H D Troponin I High Sens Total Protein 7.3 Albumin 2.5 L D COVID-19 ([facility]) Positive A COVID-19 Clin Com See Note 08/10/22 08/10/22 14:22 14:22 MCV MCH MCHC RDW Plt Count MPV Immature Gran % (Auto) Neut % (Auto) Lymph % (Auto) [place] % (Auto) Eos % (Auto) Baso % (Auto) Lymph # (Auto) [place] # (Auto) Eos # (Auto) Baso # (Auto) Abs Immat Gran (auto) Absolute Neuts (auto) Absolute Nucleated RBC Nucleated RBC % (auto) Anion Gap Estim Creat Clear Calc Estimated GFR Random Glucose Lactic Acid 2.5 H* Calcium Magnesium Total Bilirubin Direct Bilirubin AST ALT Alkaline Phosphatase Troponin I High Sens < 3.5 Total Protein Albumin COVID-19 ([facility]) COVID-19 Clin Com Imaging Radiologist's Impressions: Impressions Abdomen/Pelvis CT 08/10/22 16:00 IMPRESSION: 1. There has been significant interval increase in the size and conspicuity of the innumerable hepatic lesions as described above. The dominant 13.7 cm lesion crossing the right and left lobes of the liver has increased in size from the prior 07/08/2022 study. There are additional smaller hepatic lesions now evident as well. The large peripancreatic lymph node has not significantly increased in size from the prior study. 2. There is a new wedge-shaped region of airspace disease in the posterior aspect of the left lower lobe. I do not appreciate any new or suspicious pulmonary nodules. Infectious or inflammatory etiologies possible. 3. Small amount of abdominal ascites is seen, increased from the prior study. 4. Chronic appearing and postoperative changes as described above. 5. There is mild fullness to the left adrenal gland more prominent from prior study. Chest CT 08/10/22 16:00 IMPRESSION: 1. There has been significant interval increase in the size and conspicuity of the innumerable hepatic lesions as described above. The dominant 13.7 cm lesion crossing the right and left lobes of the liver has increased in size from the prior 07/08/2022 study. There are additional smaller hepatic lesions now evident as well. The large peripancreatic lymph node has not significantly increased in size from the prior study. 2. There is a new wedge-shaped region of airspace disease in the posterior aspect of the left lower lobe. I do not appreciate any new or suspicious pulmonary nodules. Infectious or inflammatory etiologies possible. 3. Small amount of abdominal ascites is seen, increased from the prior study. 4. Chronic appearing and postoperative changes as described above. 5. There is mild fullness to the left adrenal gland more prominent from prior study. Head CT 08/10/22 16:00 IMPRESSION: No acute intracranial pathology. Assessment and Plan (1) Liver metastases: Status: Acute (2) Intractable abdominal pain: Status: Acute (3) Elevated BUN: Status: Acute Plan An 82 years old male with gastric cancer with liver Mets who presents to the hospital with worsening chest and abdominal pain, decreased oral intake. Intractable abdominal pain secondary to metastatic gastric adenocarcinoma Required multiple doses of IV pain medications Gentle hydration Dilaudid p.r.n. To discuss goals of care when family is around Get oncology evaluation Transaminitis Secondary to liver metastases On palliative chemotherapy Hyperkalemia Kayexalate given Monitor BMP Hyponatremia Secondary to liver Mets and decreased oral intake On IV fluid Follow BMP Moderate malnutrition secondary to adult failure to thrive Continue megestrol Add Ensure with meals DVT PPX Heparin The patient will need 2. Overnight inpatient hospital stay for controlling abdominal pain and addressing goals of care for safe discharge plan Quality Stroke Does the patient have a stroke diagnosis?: No VTE Prior VTE?: No VTE Risk Level:: Medical - moderate - high VTE Device Contraindication: Treatment Not Indicated VTE Drug Contraindication: N/A - Med Ordered
[2022-08-10 18:14] LABS: ~Lactic Acid-LAB USE ONLY 2.6 mmol/L (0.5-2.0)
--- NOTE | 2022-08-10 19:01 | PHA.MEDREC ---
Pharmacy Consult ? Medication Reconciliation Pharmacy has completed the medication reconciliation. patient mentioned possible increase in amlodipine from 5mg to a higher dose, but no claim history to support. Called brother and confirmed meds because patient poor historian at the time. Patient's brother states that patient hasn't taken magic mouthwash in weeks.
[2022-08-10] MEDS: 0.9 % Sodium Chloride 1,000 ML 80 ML IVCONT (19:17)
--- NOTE | 2022-08-10 19:18 | PC.NURSE ---
assumed care of patient @1900 - patient resting comfortably on stretcher, on cardiac care nurse. iv fluids running. patient offered Dilaudid pain medication but currently denying at this time. states he is just tired. call carl within reach. will continue to monitor
[2022-08-10 19:19] VITALS: BP 135/84; PULSE 69; RESP 13; O2SAT 96
[2022-08-10 19:26] LABS: Reflex Lactate? 2 Y
[2022-08-10 20:22] VITALS: BP 125/74; PULSE 78; RESP 18; TEMP 37.2; O2SAT 97
[2022-08-10] MEDS: Heparin Sodium,Porcine 5,000 UNIT/ML VIAL 5000 UNIT SUBCUT (20:30)
[2022-08-10 23:26] VITALS: BP 119/70; PULSE 62; RESP 16; TEMP 36.7; O2SAT 96
[2022-08-11] MEDS: 0.9 % Sodium Chloride Flush 3 ML SYRINGE IVFLUSH ×2 (00:37→20:05)
--- NOTE | 2022-08-11 01:59 | PC.NURSE ---
Patient was admitted unto unit around 8.20pm with symptoms of weakness. Alert and oriented x2. NS running via Access port to RU chest @125ml/hr. Patient denied any pain. Vitals within normal limits. Repositioned and made comfortable. Able to make needs known. All needs attended to.
[2022-08-11 03:21] VITALS: BP 118/67; PULSE 69; RESP 16; TEMP 37.2; O2SAT 96
[2022-08-11] MEDS: Heparin Sodium,Porcine 5,000 UNIT/ML VIAL 5000 UNIT SUBCUT ×2 (04:39→20:04)
[2022-08-11 06:18] LABS: INTERNATIONAL NORM RATIO 1.2 (0.9-1.1); Prothrombin Time 14.1 SEC (10.0-13.1)
[2022-08-11 06:25] LABS: Hematocrit 31.7 % (42.0-52.0); Hemoglobin 10.2 g/dl (14.0-18.0); Mean Corpuscular HGB Conc 32.2 g/dl (31.0-36.0); Mean Corpuscular Hemoglobin 31.8 pg (27.0-33.0); Mean Corpuscular Volume 98.8 fL (80.0-98.0); Mean Platelet Volume 10.3 fL (9.4-12.4); Platelet Count 217 X10*3/uL (160-400); Red Blood Count 3.21 X10*6/uL (4.60-5.80); Red Cell Distribution Width 20.5 % (11.0-16.0); White Blood Count 5.7 X10*3/uL (4.8-10.8)
[2022-08-11 06:29] LABS: Anion Gap 13 (12-20); Blood Urea Nitrogen 40 mg/dL (9-16); Calcium 8.5 mg/dL (8.4-10.2); Carbon Dioxide 25 mmol/L (22-29); Chloride 99 mmol/L (96-108); Creatinine Clr Calc Pharmacy 51.3; Estimated Glomerular Filt Rate > 60; Potassium 5.5 mmol/L (3.3-5.1); Sodium 131 mmol/L (135-145)
[2022-08-11 06:48] LABS: Glucose, Whole Blood 50 mg/dL (60-115)
[2022-08-11 06:53] LABS: Glucose Random 56 mg/dL (60-115)
[2022-08-11] MEDS: 0.9 % Sodium Chloride 1,000 ML 80 ML IVCONT (07:00)
--- NOTE | 2022-08-11 07:53 | PC.NURSE ---
Addendum entered by Angela Swain 08/11/22 08:08: Patient remains alert and oriented x3. Able to tolerate orange juice and crackers. Original Note: critical labs reported from Lab for patient 's blood sugar @ 56mg/dl. Manual sugar check @58. Dr Prasad and Dr Lundberg notified
[2022-08-11 07:54] LABS: Glucose, Whole Blood 58 mg/dL (60-115)
[2022-08-11 08:00] VITALS: BP 132/58; PULSE 59; RESP 12; TEMP 36.4; O2SAT 95
[2022-08-11] MEDS: Dextrose 5 % and Lactated Ring 1,000 ML 80 ML IVCONT ×2 (08:01→20:10)
[2022-08-11] MEDS: ondansetron HCL 4 MG/2 ML VIAL IVPUSH (08:06)
[2022-08-11] MEDS: Dextrose 50 % 25 GM/50 ML SYRINGE IVPUSH (08:07)
[2022-08-11 08:25] LABS: Glucose, Whole Blood 127 mg/dL (60-115)
[2022-08-11] MEDS: Sodium Polystyrene Sulfon/Sorb 15 GM/60 ML ORAL.SUSP 30 GM PO (08:31)
--- NOTE | 2022-08-11 09:28 | MHC.CM.PN ---
Patient is Covid (+); CM spoke with Brother/HCP/Home @ [phone] and addressed IMM with him (original will be mailed certified letter to Home and a copy has been placed on the chart). Per Home, Patient has not been doing well at home, STR VS LTC VS Hospice pending PT deb and is the tentative plan and CM has initiated and will follow for dc planning. 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 Patient has received Moderna/Covid vax X3 and PCP is Dr. Padilla Corbett.
[2022-08-11 12:00] VITALS: BP 133/69; PULSE 62; RESP 16; TEMP 36.7; O2SAT 96
--- NOTE | 2022-08-11 12:28 | HO.PM.IMPN ---
Subjective Subjective Date of Service: 08/11/22 Interval History: Feels more comfortable today as pain better controlled discussed goals of care, he is interested in comfort measures Review of Systems No fever, chills but has generalized weakness No chest pain, palpitation No shortness of breath or coughing Reporting abdominal pain improved with decreased oral intake No urinary symptoms No reported rash Physical Exam Vital Signs: Vital Signs: Last Vital Signs Temp 98.1 F 08/11/22 12:00 Pulse 62 08/11/22 12:00 Resp 16 08/11/22 12:00 BP 133/69 08/11/22 12:00 Pulse Ox 96 08/11/22 12:00 O2 Del Method 08/11/22 12:00 BMI result Body Mass Index 15.8 Const: Other: Constitutional : Awake, interactive but sleepy and frail, cachectic looking Neck : Normal inspection, Supple Cardiovascular : RRR, no JVP, no lower extremity edema Respiratory : good bilateral air entry, no crackles, wheezes or rhonchi Gastrointestinal: soft, lax, Normal bowel sounds, generalized mild tenderness Skin : Warm, Dry Neurological : Alert & oriented x3, No focal deficit Objective Data Active Medications Heparin Sodium (Porcine) (Heparin Sodium,Porcine 5,000 Unit/Ml Vial) 5,000 unit SUBCUT Q8H [facility] Last Admin: 08/11/22 11:42 Dose: Not Given Documented By: MAXIMINO Non-Admin Reason: Physician Held Med Hydromorphone HCl (Hydromorphone Hcl 1 Mg/Ml Syringe) 1 mg IVPUSH Q4H PRN; Protocol PRN Reason: Pain, Severe (Pain Scale 7-10) Dextrose/Lactated Ringer's (D5lr) 1,000 mls @ 80 mls/hr IVCONT .[id number] [facility] Last Admin: 08/11/22 08:01 Dose: 80 mls/hr Documented By: MAXIMINO Ondansetron HCl (Ondansetron Hcl 4 Mg/2 Ml Vial) 4 mg IVPUSH Q8H PRN PRN Reason: Nausea and Vomiting Last Admin: 08/11/22 08:06 Dose: 4 mg Documented By: MAXIMINO Pharmacy Consult (Consult Rx Perform Med Rec) 1 each MISCELLANE ONCE PRN PRN Reason: Consult order Sodium Chloride (0.9 % Sodium Chloride Flush 3 Ml Syringe) 3 ml IVFLUSH QSHIFT TANO Last Admin: 08/11/22 08:04 Dose: Not Given Documented By: MAXIMINO Non-Admin Reason: IV Running Labs CBC & Chem 7: 08/11/22 06:03 08/11/22 06:03 Labs: Laboratory Results - last 24 hr 08/10/22 08/10/22 08/10/22 14:21 14:22 14:22 MCV 98.0 MCH 32.2 MCHC 32.8 RDW 20.5 H Plt Count 261 MPV 10.4 Immature Gran % (Auto) 0.6 H Neut % (Auto) 77.4 H Lymph % (Auto) 10.7 L Jones % (Auto) 10.8 Eos % (Auto) 0.2 Baso % (Auto) 0.3 Lymph # (Auto) 0.7 L Jones # (Auto) 0.7 Eos # (Auto) 0.0 Baso # (Auto) 0.0 Abs Immat Gran (auto) 0.04 H Absolute Neuts (auto) 5.0 Absolute Nucleated RBC 0.000 Nucleated RBC % (auto) 0.0 PT INR Anion Gap 16 Estim Creat Clear Calc 42.8 Estimated GFR > 60 POC Glucose Random Glucose 71 Lactic Acid Lactic Acid F/U @ 2Hr Lactic Acid F/U @ 4Hr Calcium 8.9 D Magnesium 2.4 Total Bilirubin 4.3 H Direct Bilirubin 3.1 H AST 151 H ALT 36 Alkaline Phosphatase 864 H D Troponin I High Sens Total Protein 7.3 Albumin 2.5 L D COVID-19 ([facility]) Positive A COVID-19 Clin Com See Note 08/10/22 08/10/22 08/10/22 14:22 14:22 17:22 MCV MCH MCHC RDW Plt Count MPV Immature Gran % (Auto) Neut % (Auto) Lymph % (Auto) Jones % (Auto) Eos % (Auto) Baso % (Auto) Lymph # (Auto) Jones # (Auto) Eos # (Auto) Baso # (Auto) Abs Immat Gran (auto) Absolute Neuts (auto) Absolute Nucleated RBC Nucleated RBC % (auto) PT INR Anion Gap Estim Creat Clear Calc Estimated GFR POC Glucose Random Glucose Lactic Acid 2.5 H* Lactic Acid F/U @ 2Hr 2.6 H* Lactic Acid F/U @ 4Hr Calcium Magnesium Total Bilirubin Direct Bilirubin AST ALT Alkaline Phosphatase Troponin I High Sens < 3.5 Total Protein Albumin COVID-19 ([facility]) COVID-19 [employer] 08/10/22 08/11/22 08/11/22 19:46 06:03 06:03 MCV 98.8 H MCH 31.8 MCHC 32.2 RDW 20.5 H Plt Count 217 MPV 10.3 Immature Gran % (Auto) Neut % (Auto) Lymph % (Auto) Jones % (Auto) Eos % (Auto) Baso % (Auto) Lymph # (Auto) Jones # (Auto) Eos # (Auto) Baso # (Auto) Abs Immat Gran (auto) Absolute Neuts (auto) Absolute Nucleated RBC 0.000 Nucleated RBC % (auto) 0.0 PT 14.1 H INR 1.2 H Anion Gap Estim Creat Clear Calc Estimated GFR POC Glucose Random Glucose Lactic Acid Lactic Acid F/U @ 2Hr Lactic Acid F/U @ 4Hr 2.0 Calcium Magnesium Total Bilirubin Direct Bilirubin AST ALT Alkaline Phosphatase Troponin I High Sens Total Protein Albumin COVID-19 ([facility]) [employer] 08/11/22 08/11/22 08/11/22 06:03 06:45 07:38 MCV MCH MCHC RDW Plt Count MPV Immature Gran % (Auto) Neut % (Auto) Lymph % (Auto) Jones % (Auto) Eos % (Auto) Baso % (Auto) Lymph # (Auto) Jones # (Auto) Eos # (Auto) Baso # (Auto) Abs Immat Gran (auto) Absolute Neuts (auto) Absolute Nucleated RBC Nucleated RBC % (auto) PT INR Anion Gap 13 Estim Creat Clear Calc 51.3 Estimated GFR > 60 POC Glucose 50 L* 58 L* Random Glucose 56 L* Lactic Acid Lactic Acid F/U @ 2Hr Lactic Acid F/U @ 4Hr Calcium 8.5 Magnesium Total Bilirubin Direct Bilirubin AST ALT Alkaline Phosphatase Troponin I High Sens Total Protein Albumin COVID-19 ([facility]) [employer] 08/11/22 08:18 MCV MCH MCHC RDW Plt Count MPV Immature Gran % (Auto) Neut % (Auto) Lymph % (Auto) Jones % (Auto) Eos % (Auto) Baso % (Auto) Lymph # (Auto) Jones # (Auto) Eos # (Auto) Baso # (Auto) Abs Immat Gran (auto) Absolute Neuts (auto) Absolute Nucleated RBC Nucleated RBC % (auto) PT INR Anion Gap Estim Creat Clear Calc Estimated GFR POC Glucose 127 H Random Glucose Lactic Acid Lactic Acid F/U @ 2Hr Lactic Acid F/U @ 4Hr Calcium Magnesium Total Bilirubin Direct Bilirubin AST ALT Alkaline Phosphatase Troponin I High Sens Total Protein Albumin COVID-19 ([facility]) COVID-19 Clin Com Assessment and Plan (1) Gastric adenocarcinoma: Status: Acute (2) Liver metastases: Status: Acute (3) Intractable abdominal pain: Status: Acute Plan An 82 years old male with gastric cancer with liver Mets who presents to the hospital with worsening chest and abdominal pain, decreased oral intake. Intractable abdominal pain secondary to metastatic gastric adenocarcinoma Required multiple doses of IV pain medications Gentle hydration Dilaudid p.r.n. DNR\DNI with plan for hospice , consult placed Get oncology evaluation Transaminitis Secondary to liver metastases On palliative chemotherapy Hyperkalemia Kayexalate given Monitor BMP Hyponatremia Secondary to liver Mets and decreased oral intake On IV fluid Follow BMP Moderate malnutrition secondary to adult failure to thrive Continue megestrol Add Ensure with meals DVT PPX Heparin The patient will need Overnight inpatient hospital stay for controlling abdominal pain and addressing goals of care for safe discharge plan Quality Stroke Does the patient have a stroke diagnosis?: No VTE Prior VTE?: No VTE Risk Level:: Medical - moderate - high VTE Device Contraindication: Treatment Not Indicated VTE Drug Contraindication: N/A - Med Ordered
[2022-08-11 13:20] VITALS: BMI 15.8
--- NOTE | 2022-08-11 13:24 | MHC.CLN ---
PT IS MODERATELY MALNOURISHED PT WITH MILDLY DEPLETED SUBCUTANEOUS FAT AND MUSCLE MASS WITH 10% SIGNIFICANT WT LOSS X 6 MONTHS WITH CHRONIC POOR PO INTAKE DIET RX: REGULAR-APPROPRIATE PT RECEIVING ENSURE CLEAR TID TO PROVIDE 720KCALS, 24G PROTEIN PT ALSO ON MEGACE PER MD TO INCREASE APPETITE MONITOR PO INTAKE CLOSELY SEE ALSO FULL CLINICAL NUTRITION ASSESSMENT
[2022-08-11] MEDS: HYDROmorphone HCl 1 MG/ML SYRINGE IVPUSH ×2 (14:17→22:38)
[2022-08-11 14:58] LABS: Anion Gap 16 (12-20); Blood Urea Nitrogen 36 mg/dL (9-16); Calcium 8.5 mg/dL (8.4-10.2); Carbon Dioxide 23 mmol/L (22-29); Chloride 99 mmol/L (96-108); Creatinine Clr Calc Pharmacy 56.6; Estimated Glomerular Filt Rate > 60; Glucose Random 86 mg/dL (60-115); Potassium 4.7 mmol/L (3.3-5.1); Sodium 133 mmol/L (135-145)
[2022-08-11 16:00] VITALS: BP 135/71; RESP 16; TEMP 37; O2SAT 98
--- NOTE | 2022-08-11 16:32 | PM.HEMONCCN ---
Subjective - Subjective Chief complaint: Consult for: 1. COVID infection. 2. Gastric carcinoma with Mets. Patient: known to practice within the last 3 years Consult date: 08/11/22 Requesting Physician: Tamika. Primary Care Provider: Dr. Corbett. Medical Summary: DIAGNOSIS: 1. 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 2. RECENT COVID INFECTION. HPI - Consult Narrative Reason for consult: Follow-up for metastatic gastric carcinoma with disease progression. Narrative: Jeffrey Schilling is an unfortunate 82 year old gentleman, with gastric cancer with liver Mets who presented to the hospital on 08/10, with worsening chest and abdominal pain, decreased oral intake. The patient has felt rather lethargic. He has been on oxycodone for pain but is not helping. In the emergency was found to have COVID positive status, hyponatremia, hyperkalemia with associated elevated liver enzymes. He required multiple doses of IV pain medication to control his pain. He has been admitted for further evaluation and treatment. He has been recieving palliative chemotherapy. Review of Systems Review of Systems: No fever, chills but has generalized weakness No chest pain, palpitation No shortness of breath or coughing Reporting abdominal pain with decreased oral intake No urinary symptoms No reported rash PMFSH Medical History: Bacteremia Gastric adenocarcinoma Gastric out let obstruction Hypertension Liver metastases Vertigo Family History: Father : past heart attack Mother :Past heart attack Surgical History: H/O bypass gastrojejunostomy History of appendectomy S/P bypass gastrojejunostomy Social History: Household Members: None Housing: Apartment Review of Systems - Constitutional Reports system reviewed and no additional complaints, except as documented, Reports anorexia, Reports chills, Reports daytime sleepiness, Reports fatigue, Reports lack of energy, Reports malaise, Reports weight loss - Eyes Reports system reviewed and no additional complaints, except as documented - ENT Reports system reviewed and no additional complaints, except as documented, Reports headache(s) - Cardiovascular Reports system reviewed and no additional complaints, except as documented, Reports lightheadedness, Reports shortness of breath - Respiratory Reports no additional respiratory complaints - Gastrointestinal Reports system reviewed and no additional complaints, except as documented - Genitourinary Genitourinary: Reports no additional male genitourinary complaints - Musculoskeletal Reports system reviewed and no additional complaints, except as documented - Integumentary/Breasts Skin/Breast: Reports no additional skin complaints - Neurologic Reports system reviewed and no additional complaints, except as documented, Reports weakness, Denies abnormal speech, Denies dizziness, Denies headache(s), Denies numbness, Denies tingling - Psychiatric Reports system reviewed and no additional complaints, except as documented - Endocrine Reports no additional endocrine complaints - Hematologic/Lymphatic Reports system reviewed and no additional complaints, except as documented - Allergic/Immunologic Reports system reviewed and no additional complaints, except as documented [facility] Medical History: Medical History (Last Reviewed 08/10/22 @ 18:14 by Raghavendra Lundberg MD) Bacteremia Gastric adenocarcinoma Gastric out let obstruction Hypertension Liver metastases Vertigo Functional capacity: bed bound Patient : No Family History: Family History (Last Reviewed 08/10/22 @ 18:14 by Raghavendra Lundberg MD) Father Past heart attack Mother Past heart attack Surgical History: Surgical History (Last Reviewed 08/10/22 @ 18:14 by Raghavendra Lundberg MD) H/O bypass gastrojejunostomy History of appendectomy S/P bypass gastrojejunostomy Social History: Social History (Last Reviewed 08/10/22 @ 18:14 by Raghavendra Lundberg MD) Living Situation History: Household Members: Family Housing: Apartment Do you presently have visiting nurse or other home services: No Tobacco History: Patient Tobacco Use Status: Former Tobacco user Tobacco use type: Cigarette Years Smoked: 30 Smoke Quit Date: quit 26 yr ago e-Cigarette/Vaping Use: Never Used Second Hand Smoke Exposure: No Advance Directives: Advance Directives Date on File: 11/12/21 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 occupational status: retired Home Medications and Allergies Current Medications: Current Medications Heparin Sodium (Porcine) (Heparin Sodium,Porcine 5,000 Unit/Ml Vial) 5,000 unit SUBCUT Q8H [facility] Last Admin: 08/11/22 11:42 Dose: Not Given Hydromorphone HCl (Hydromorphone Hcl 1 Mg/Ml Syringe) 1 mg IVPUSH Q4H PRN; Protocol PRN Reason: Pain, Severe (Pain Scale 7-10) Last Admin: 08/11/22 14:17 Dose: 1 mg Dextrose/Lactated Ringer's (D5lr) 1,000 mls @ 80 mls/hr IVCONT .[id number] [facility] Last Admin: 08/11/22 08:01 Dose: 80 mls/hr Ondansetron HCl (Ondansetron Hcl 4 Mg/2 Ml Vial) 4 mg IVPUSH Q8H PRN PRN Reason: Nausea and Vomiting Last Admin: 08/11/22 08:06 Dose: 4 mg Pharmacy Consult (Consult Rx Perform Med Rec) 1 each MISCELLANE ONCE PRN PRN Reason: Consult order Sodium Chloride (0.9 % Sodium Chloride Flush 3 Ml Syringe) 3 ml IVFLUSH QSHIFT [facility] Last Admin: 08/11/22 15:26 Dose: Not Given Home Medications Medication Instructions Recorded Confirmed Type vitamin B complex 1 cap PO DAILY 06/03/22 08/10/22 History Allergies Allergy/AdvReac Type Severity Reaction Status Date / Time No Known Allergies Allergy Verified 08/07/22 14:13 [No Known Allergies*] Physical Exam Vital signs: Vital Signs Temp 98.1 F 08/11/22 12:00 Pulse 62 08/11/22 12:00 Resp 16 08/11/22 12:00 BP 133/69 08/11/22 12:00 Pulse Ox 96 08/11/22 12:00 O2 Del Method 08/11/22 12:00 Intake & Output 08/10/22 08/11/22 08/11/22 18:59 06:59 18:59 Intake Total 1000 / 1937.333 0 / 8177.626 2193.333 / 2157.333 Output Total 100 / 100 700 / 700 Balance 1000 / 1837.333 -100 / 5856.234 9264.333 / 1457.333 Urine Output (Average ml/kg/hr) 0.16 1.10 Intake: Intake, Oral Amount 0 / 0 220 / 220 Intake, IV Amount 1000 / 5614.944 2565.333 / 1937.333 0.9 % Sodium Chloride 1,000 ml 1000 / 1000 @ 999 mls/hr IV .Q1H1M [facility] Rx#: [id number] 0.9 % Sodium Chloride 1,000 ml 1937.333 / 1937.333 @ 80 mls/hr IVCONT .[id number] [facility] Rx#:[id number] Output: Output, Urine Amount 100 / 100 700 / 700 Other: Breakfast % Eaten 25% Lunch % Eaten 50% Urine taxes Urine Color Felipe Weight 53 kg 53 kg Weight 53 kg - Constitutional Present: moderate distress - Routine HEENT Exam Head: Present: normal inspection, normocephalic ENT: Present: normal exam - Routine Neck Exam Present: supple - Routine Respiratory Exam Present: CTAB - Routine Cardiovascular Exam Cardiovascular: Present: RRR, S1, S2 - Routine Abdominal Exam Present: diminished bowel sounds, tenderness - Routine Extremities Exam Present: nontender - Routine Skin Exam Present: intact, normal turgor Hem/Onc Consult Result - Labs CBC & Chem 7: 08/11/22 06:03 08/11/22 14:03 Labs: Short CBC 08/11/22 Range/Units 06:03 WBC 5.7 (4.8-10.8) X10*3/uL Hgb 10.2 L (14.0-18.0) g/dl Hct 31.7 L (42.0-52.0) % Plt Count 217 (160-400) X10*3/uL BMP 08/11/22 08/11/22 06:03 14:03 Sodium 131 L 133 L Potassium 5.5 H 4.7 Chloride 99 99 Carbon Dioxide 25 23 BUN 40 H 36 H Creatinine 0.86 0.78 Calcium 8.5 8.5 Assessment and Plan Patient Active problem list reviewed?: Yes (1) Gastric adenocarcinoma Status: Acute Assessment and plan: 82 year old gentleman with gastric outlet obstruction. EGD showed a gastric mass. 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 I recommended Pre-op chemotherapy, followed by surgery if feasible. Patient was evaluated by general surgery and GI. They recommended to proceed with surgical resection. He underwent the surgery on 08/26. 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 So surgery could not be performed. 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 He is status post gastrojejunostomy.? Hospital course was complicated rather development of fever/rigors. He underwent work up which was negative. He was started on IV zosyn empirically. Blood cultures positive for GNR bacteria: Serratia Marsenscans. Symptoms resolved. He remained afebrile >24h. White blood count: normal. Continue IV zosyn. Obtain ID consult re: GNR bacteremia and antibiotic recommendations. CT chest and abdomen/pelvis: No evidence of anastomotic leak or abscess. He was sent home on antibiotics. He had HER2 positive disease. l checked PDL1: 1. MSI. Since he had stage IV disease the plan was devised to treat him with palliative systemic chemotherapy: FOLFOX plus trastuzumab. He had a PET scan for staging, on Sunday 10/08: 1. An intensely FDG avid right upper quadrant mass is contiguous with intensely FDG avid wall thickening in the pyloric region of the distal stomach. This is most likely a primary malignancy. 2. Multiple FDG avid liver metastases are present. 3. No additional abnormalities suspicious for other metastatic or malignant lesions are noted. 4. Vascular calcifications including coronary are noted. He seemed to be tolerating the treatment very well. His GI symptoms, had resolved, initially. He completed 7 cycles. l proceeded with re-staging with imaging, on 02/28: Interval decrease in wall thickening of the distal stomach and probable ulcerative mass adjacent to the distal stomach/proximal duodenum to the head of the pancreas. Small perigastric lymph nodes. Fat stranding and small nodules in the fat inferior to the stomach questionable for evidence of peritoneal disease versus post operative change from gastrojejunostomy. Previously identified liver lesions are not appreciated on noncontrast imaging. New wall thickening of the proximal right colon questionable for colitis. However, in June, he c/o pain in his right upper quadrant area. From 07/10, CT scan of the abdomen pelvis: 1. Interval development of bulky hepatic metastatic disease, largest measures 10 x 9 cm. 2. Distal gastric mass appears larger, around 5 cm. 3. No bowel obstruction. No ascites. 4. CT chest: IMPRESSION: 1. No intrathoracic metastases. No hilar or mediastinal mass. No effusion. Unfortunately he had disease progression. He was then switched to second-line treatment. Fortunately his PDL1 was positive, >5. He was deemed a candidate for pembrolizumab. He was started on it on 07/17. Database from 08/04: CBC: WBC 6.7, HGB 11.1, HCT 33.9, PLT 229. CMP: Lytes WNL, glucose 77, BUN 20, SAFETY PERSON 0.65. LFTs: 2.7/724/160/32. CEA: 95.7. He was due for cycle 2 on 08/07. However he did not come in. He did not feel too well. He came to the emergency room on 08/10. He has been noted to have COVID infection. He has had severe abdominal pain secondary to metastatic gastric adenocarcinoma. He has required several doses of IV Dilaudid. PLAN: He is being managed symptomatically. I discussed goals of care with him. We did address prognosis. He does understand the guarded nature. He does not want to undergo resuscitation. He does not wish intubation or heart compressions. However he would like to continue on the pembrolizumab for now. Will set up a follow-up appointment in Oncology, after he recovers. He was given Megace for appetite. Senokot for constipation. Will increase the duloxetine dose for the neuropathy. Thank you, Cc: Dr. Corbett. - Time Spent With Patient Time Spent with Patient (in minutes): 30
[2022-08-11 19:43] VITALS: BP 146/70; PULSE 74; RESP 12; TEMP 36.4; O2SAT 97
[2022-08-11 23:18] VITALS: BP 127/73; PULSE 97; RESP 16; TEMP 36.6; O2SAT 94
[2022-08-12 03:08] VITALS: BP 139/83; PULSE 89; RESP 14; TEMP 36.7; O2SAT 99
[2022-08-12] MEDS: HYDROmorphone HCl 1 MG/ML SYRINGE IVPUSH ×3 (05:48→21:17)
[2022-08-12 07:12] VITALS: BP 95/68; PULSE 84; RESP 16; TEMP 36.5; O2SAT 98
[2022-08-12] MEDS: Dextrose 5 % and Lactated Ring 1,000 ML 80 ML IVCONT (08:28)
--- NOTE | 2022-08-12 09:39 | MHC.CM.PN ---
MD/PT REQUESTING A HOSPICE INFORMATIONAL, HOSPICE LIFE CARE NOTIFIED. WILL CONTINUE TO FOLLOW FOR PLAN.
--- NOTE | 2022-08-12 09:45 | MHC.CM.PN ---
Addendum entered by Vidya Schilling 08/12/22 14:02: per [facility] liaison, pt brother/hcp Home does not want to discuss Hospice until he thinks about it. Cm met with pt and would like to discuss Hospice but only with brother present, pt very upset that his brother has not come to see him today. This cm attempted to call brother at [phone] with no answer or machine to leave message. Cm will continue to try and reach. Original Note: SPOKE WITH PT'S BROTHER HOME WHO IS GOING TO GET A RIDE FROM A FRIEND TO THE HOSPITAL TO SEE HIS BROTHER. SUPPORT OFFERED.
[2022-08-12 11:13] VITALS: BP 121/74; PULSE 74; RESP 18; TEMP 36.7; O2SAT 95
[2022-08-12] MEDS: Heparin Sodium,Porcine 5,000 UNIT/ML VIAL 5000 UNIT SUBCUT ×2 (12:14→21:16)
--- NOTE | 2022-08-12 13:45 | P.PNIM_ITS ---
Subjective Subjective Date of Service: 08/12/22 Interval History: Feels more comfortable today as pain better controlled discussed goals of care, he is interested in comfort measures waiting his brother to finish MOLST form plan for hospice team meeting Review of Systems No fever, chills but has generalized weakness No chest pain, palpitation No shortness of breath or coughing Reporting abdominal pain improved with decreased oral intake No urinary symptoms No reported rash Physical Exam Vital Signs: Vital Signs: Last Vital Signs Temp 98.1 F 08/12/22 11:13 Pulse 74 08/12/22 11:13 Resp 18 08/12/22 11:13 BP 121/74 08/12/22 11:13 Pulse Ox 95 08/12/22 11:13 O2 Del Method 08/12/22 11:13 BMI result Body Mass Index 15.8 Const: Other: Constitutional : Awake, interactive but sleepy and frail, cachectic looking Neck : Normal inspection, Supple Cardiovascular : RRR, no JVP, no lower extremity edema Respiratory : good bilateral air entry, no crackles, wheezes or rhonchi Gastrointestinal: soft, lax, Normal bowel sounds, generalized mild tenderness Skin : Warm, Dry Neurological : Alert & oriented x3, No focal deficit Objective Data Active Medications Heparin Sodium (Porcine) (Heparin Sodium,Porcine 5,000 Unit/Ml Vial) 5,000 unit SUBCUT Q8H [facility] Last Admin: 08/12/22 12:14 Dose: 5,000 unit Documented By: RJ Hydromorphone HCl (Hydromorphone Hcl 1 Mg/Ml Syringe) 1 mg IVPUSH Q4H PRN; Protocol PRN Reason: Pain, Severe (Pain Scale 7-10) Last Admin: 08/12/22 05:48 Dose: 1 mg Documented By: JAIME Ondansetron HCl (Ondansetron Hcl 4 Mg/2 Ml Vial) 4 mg IVPUSH Q8H PRN PRN Reason: Nausea and Vomiting Last Admin: 08/11/22 08:06 Dose: 4 mg Documented By: MAXIMINO Pharmacy Consult (Consult Rx Perform Med Rec) 1 each MISCELLANE ONCE PRN PRN Reason: Consult order Sodium Chloride (0.9 % Sodium Chloride Flush 3 Ml Syringe) [address] [facility] Last Admin: 08/12/22 08:28 Dose: Not Given Documented By: RJ Non-Admin Reason: IV Running Labs CBC & Chem 7: 08/11/22 06:03 08/11/22 14:03 Labs: Laboratory Results - last 24 hr 08/11/22 14:03 Anion Gap 16 Estim Creat Clear Calc 56.6 Estimated GFR > 60 Random Glucose 86 Calcium 8.5 Microbiology Microbiology Results: Microbiology 08/10/22 16:23 Blood Culture - Preliminary Blood - Venous No growth after 24 hours. 08/10/22 16:23 Blood Culture - Preliminary Blood - Venous No growth after 24 hours. Assessment and Plan (1) Gastric out let obstruction: Status: Acute (2) Gastric adenocarcinoma: Status: Acute (3) Liver metastases: Status: Acute Plan An 82 years old male with gastric cancer with liver Mets who presents to the hospital with worsening chest and abdominal pain, decreased oral intake. Intractable abdominal pain secondary to metastatic gastric adenocarcinoma pain fairly controlled now DC IVF Dilaudid p.r.n. DNR\DNI with plan for hospice , consult placed oncology evaluation ; patient still want chemo ? unclear to me personally. he s aid he wants to at a hospice facility. so will leave it until he meets with his brother and hospice team before considering chemo given his poor nutritional and physical status i doubt he can tolerate any chemotherapy. Transaminitis Secondary to liver metastases On palliative chemotherapy Hyperkalemia Kayexalate given Monitor BMP Hyponatremia Secondary to liver Mets and decreased oral intake On IV fluid Follow BMP Moderate malnutrition secondary to adult failure to thrive Continue megestrol Add Ensure with meals DVT PPX Heparin The patient will need Overnight inpatient hospital stay for controlling abdominal pain and addressing goals of care for safe discharge plan pending hospice team eval Quality Stroke Does the patient have a stroke diagnosis?: No VTE Prior VTE?: No VTE Risk Level:: Medical - moderate - high VTE Device Contraindication: Treatment Not Indicated VTE Drug Contraindication: N/A - Med Ordered
[2022-08-12 15:06] VITALS: BP 116/71; PULSE 75; RESP 16; TEMP 36.3; O2SAT 97
[2022-08-12] MEDS: 0.9 % Sodium Chloride Flush 3 ML SYRINGE IVFLUSH ×2 (15:24→21:19)
[2022-08-12 19:17] VITALS: BP 114/64; PULSE 75; RESP 14; TEMP 36.2; O2SAT 97
[2022-08-12 23:21] VITALS: BP 118/70; PULSE 71; RESP 16; TEMP 36.7; O2SAT 96
[2022-08-13 03:39] VITALS: BP 108/69; PULSE 95; RESP 17; TEMP 37.3; O2SAT 96
[2022-08-13] MEDS: Heparin Sodium,Porcine 5,000 UNIT/ML VIAL 5000 UNIT SUBCUT ×3 (04:32→20:42)
[2022-08-13] MEDS: HYDROmorphone HCl 1 MG/ML SYRINGE IVPUSH ×2 (04:33→18:11)
[2022-08-13 08:00] VITALS: BP 118/72; PULSE 78; RESP 20; TEMP 36.4; O2SAT 96
[2022-08-13] MEDS: 0.9 % Sodium Chloride Flush 3 ML SYRINGE IVFLUSH ×2 (08:38→17:11)
--- NOTE | 2022-08-13 10:00 | MHC.CM.PN ---
CM ATTEMPTED TO REACH BROTHER/HCP ANGY, NO ANSWER OR WAY TO LEAVE MESSAGE.
--- NOTE | 2022-08-13 10:11 | MHC.CLN ---
F/U PT IS MODERATELY MALNOURISHED SEE ALSO CLINICAL NUTRITION ASSESSMENT DATED 08/11/22 DIET RX: REGULAR GRD/M/S-APPROPRIATE PT RECEIVING ENSURE CLEAR TID TO PROVIDE 720KCALS, 24G PROTEIN PT ALSO ON MEGACE PER MD TO INCREASE APPETITE PT INTERESTED IN POSSIBLE MANAGER OF PRODUCT/HOSPICE FOLLOWING WITH TEAM
[2022-08-13 11:15] VITALS: BP 112/73; PULSE 79; RESP 20; TEMP 36.7; O2SAT 96
--- NOTE | 2022-08-13 13:03 | P.PNIM_ITS ---
Subjective Subjective Date of Service: 08/13/22 Interval History: cc: pain interval history:pain Cardiovascular Cardiovascular: Reports no additional cardiovascular complaints Respiratory Respiratory: Reports no additional respiratory complaints Physical Exam Vital Signs: Vital Signs: Last Vital Signs Temp 98.0 F 08/13/22 11:15 Pulse 79 08/13/22 11:15 Resp 20 08/13/22 11:15 BP 112/73 08/13/22 11:15 Pulse Ox 96 08/13/22 11:15 O2 Del Method 08/13/22 11:15 BMI result Body Mass Index 15.8 General: AO X 3, cachexia Resp: CTA bilateral, no accessory muscles used CVS: S1,S2,RRR GI: soft, non tender, non distended Neuro: motor grossly intact, alert Psych: appropriate affect, appropriate insight Objective Data Active Medications Heparin Sodium (Porcine) (Heparin Sodium,Porcine 5,000 Unit/Ml Vial) 5,000 unit SUBCUT Q8H [facility] Last Admin: 08/13/22 12:32 Dose: 5,000 unit Documented By: RJ Hydromorphone HCl (Hydromorphone Hcl 1 Mg/Ml Syringe) 1 mg IVPUSH Q4H PRN; Prot ocol PRN Reason: Pain, Severe (Pain Scale 7-10) Last Admin: 08/13/22 04:33 Dose: 1 mg Documented By: MARII Ondansetron HCl (Ondansetron Hcl 4 Mg/2 Ml Vial) 4 mg IVPUSH Q8H PRN PRN Reason: Nausea and Vomiting Last Admin: 08/11/22 08:06 Dose: 4 mg Documented By: MAXIMINO Pharmacy Consult (Consult Rx Perform Med Rec) 1 each MISCELLANE ONCE PRN PRN Reason: Consult order Sodium Chloride (0.9 % Sodium Chloride Flush 3 Ml Syringe) 3 ml IVFLUSH QSHIFT [facility] Last Admin: 08/13/22 08:38 Dose: 3 ml Documented By: RJ Labs CBC & Chem 7: 08/11/22 06:03 08/11/22 14:03 Microbiology Microbiology Results: Microbiology 08/10/22 16:23 Blood Culture - Preliminary Blood - Venous No growth after 48 hours. 08/10/22 16:23 Blood Culture - Preliminary Blood - Venous No growth after 48 hours. Assessment and Plan (1) Gastric out let obstruction: Status: Acute (2) Gastric adenocarcinoma: Status: Acute (3) Liver metastases: Status: Acute Plan An 82 years old male with gastric cancer with liver Mets who presents to the hospital with worsening chest and abdominal pain, decreased oral intake. Intractable abdominal pain secondary to metastatic gastric adenocarcinoma complicated by moderate protein calorie malnutrition pain better controlled now Dilaudid p.r.n. DNR\DNI with plan for hospice but patient wants brother present for discussion Transaminitis Secondary to liver metastases On palliative chemotherapy Hyperkalemia Kayexalate given Monitor BMP Hyponatremia Secondary to liver Mets and decreased oral intake Follow BMP Moderate malnutrition secondary to adult failure to thrive Continue megestrol Add Ensure with meals DVT PPX Heparin dnr/dni reason for continued hospitalization: safe discharge plan pending hospice team eval Quality Stroke Does the patient have a stroke diagnosis?: No VTE Prior VTE?: No VTE Risk Level:: Medical - moderate - high VTE Device Contraindication: Treatment Not Indicated VTE Drug Contraindication: N/A - Med Ordered
[2022-08-13 15:19] VITALS: BP 116/82; PULSE 89; RESP 18; TEMP 36.2; O2SAT 98
--- NOTE | 2022-08-13 15:41 | MHC.CM.PN ---
BROTHER ANGY IN TO SEE PT, PT NOW DOES NOT WANT HOSPICE CARE, REFUSES TO GO TO A SNF AND WOULD LIKE TO GO HOME WITH PREVIOUS SERVICES. WILL NEED A PT RX EVAL . PT ALSO STATES MY BROTHER TOLD ME NOT TO SIGN ANYTHING CM WILL CONTINUE TO FOLLOW FOR PLAN.
[2022-08-13 19:10] VITALS: BP 105/61; PULSE 80; RESP 18; TEMP 36.2; O2SAT 96
[2022-08-14] VITALS (8 sets, daily range): BP systolic 119–136; BP diastolic 61–72; PULSE 70–82; RESP 14–20; TEMP 36.1–36.6; O2SAT 96–98
[2022-08-14] MEDS: HYDROmorphone HCl 1 MG/ML SYRINGE IVPUSH ×2 (01:38→20:01)
[2022-08-14] MEDS: 0.9 % Sodium Chloride Flush 3 ML SYRINGE IVFLUSH ×2 (02:06→09:20)
[2022-08-14] MEDS: Heparin Sodium,Porcine 5,000 UNIT/ML VIAL 5000 UNIT SUBCUT ×2 (05:27→11:12)
--- NOTE | 2022-08-14 10:00 | HO.PM.IMPN ---
Subjective Subjective Date of Service: 08/14/22 Interval History: cc: pain interval history:pain Cardiovascular Cardiovascular: Reports no additional cardiovascular complaints Respiratory Respiratory: Reports no additional respiratory complaints Physical Exam Vital Signs: Vital Signs: Last Vital Signs Temp 97.0 F 08/14/22 08:00 Pulse 81 08/14/22 08:00 Resp 20 08/14/22 08:00 BP 124/65 08/14/22 08:00 Pulse Ox 98 08/14/22 08:00 O2 Del Method 08/14/22 08:00 BMI result Body Mass Index 15.8 General: AO X 3, cachexia Resp: CTA bilateral, no accessory muscles used CVS: S1,S2,RRR GI: soft, non tender, non distended Neuro: motor grossly intact, alert Psych: appropriate affect, appropriate insight Objective Data Active Medications Heparin Sodium (Porcine) (Heparin Sodium,Porcine 5,000 Unit/Ml Vial) 5,000 unit SUBCUT Q8H [facility] Last Admin: 08/14/22 05:27 Dose: 5,000 unit Documented By: PAULO Hydromorphone HCl (Hydromorphone Hcl 1 Mg/Ml Syringe) 1 mg IVPUSH Q4H PRN; Protocol PRN Reason: Pain, Severe (Pain Scale 7-10) Last Admin: 08/14/22 01:38 Dose: 1 mg Documented By: PAULO Ondansetron HCl (Ondansetron Hcl 4 Mg/2 Ml Vial) 4 mg IVPUSH Q8H PRN PRN Reason: Nausea and Vomiting Last Admin: 08/11/22 08:06 Dose: 4 mg Documented By: MAXIMINO Pharmacy Consult (Consult Rx Perform Med Rec) 1 each MISCELLANE ONCE PRN PRN Reason: Consult order Sodium Chloride (0.9 % Sodium Chloride Flush 3 Ml Syringe) 3 ml IVFLUSH QSHIFT [facility] Last Admin: 08/14/22 09:20 Dose: 3 ml Documented By: HOLGER Labs CBC & Chem 7: 08/11/22 06:03 08/11/22 14:03 Assessment and Plan (1) Gastric out let obstruction: Status: Acute (2) Gastric adenocarcinoma: Status: Acute (3) Liver metastases: Status: Acute Plan An 82 years old male with gastric cancer with liver Mets who presents to the hospital with worsening chest and abdominal pain, decreased oral intake. Intractable abdominal pain secondary to metastatic gastric adenocarcinoma complicated by moderate protein calorie malnutrition pain better controlled now Dilaudid p.r.n. DNR\DNI with plan for hospice but patient wants brother present for discussion Transaminitis Secondary to liver metastases On palliative chemotherapy Hyperkalemia Kayexalate given Monitor BMP Hyponatremia Secondary to liver Mets and decreased oral intake Follow BMP Moderate malnutrition secondary to adult failure to thrive Continue megestrol Add Ensure with meals DVT PPX Heparin dnr/dni reason for continued hospitalization: safe discharge plan pending hospice team eval Quality Stroke Does the patient have a stroke diagnosis?: No VTE Prior VTE?: No VTE Risk Level:: Medical - moderate - high VTE Device Contraindication: Treatment Not Indicated VTE Drug Contraindication: N/A - Med Ordered
--- NOTE | 2022-08-14 10:39 | PM.HEMONCPN ---
Medical Summary - Medical Summary Date of Service: 08/14/22 Medical Summary: DIAGNOSIS: 1. 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 2. RECENT COVID INFECTION. Interval History Interval history: His pain is better controlled and he is alert and awake but seems confused. Review of Systems - Constitutional Reports anorexia - Eyes Reports sensitivity to light - ENT Reports system reviewed and no additional complaints, except as documented - Cardiovascular Reports shortness of breath - Respiratory Reports cough - Gastrointestinal Reports abdominal pain - Genitourinary Genitourinary: Reports urinary urgency - Musculoskeletal Reports muscle weakness - Neurologic Reports system reviewed and no additional complaints, except as documented, Reports headache(s), Reports weakness, Denies abnormal speech, Denies numbness, Denies tingling PMFSH Medical History: Medical History (Last Reviewed 08/10/22 @ 18:14 by Raghavendra Lundberg MD) Bacteremia Gastric adenocarcinoma Gastric out let obstruction Hypertension Liver metastases Vertigo Functional capacity: bed bound Family History: Family History (Last Reviewed 08/10/22 @ 18:14 by Raghavendra Lundberg MD) Father Past heart attack Mother Past heart attack Surgical History: Surgical History (Last Reviewed 08/10/22 @ 18:14 by Raghavendra Lundberg MD) H/O bypass gastrojejunostomy History of appendectomy S/P bypass gastrojejunostomy Social History: Social History (Last Reviewed 08/10/22 @ 18:14 by Raghavendra Lundberg MD) Living Situation History: Household Members: Family Housing: Apartment Do you presently have visiting nurse or other home services: No Tobacco History: Patient Tobacco Use Status: Former Tobacco user Tobacco use type: Cigarette Years Smoked: 30 Smoke Quit Date: quit 26 yr ago e-Cigarette/Vaping Use: Never Used Second Hand Smoke Exposure: No Advance Directives: Advance Directives Date on File: 11/12/21 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 occupational status: retired Home Medications and Allergies Current Medications: Current Medications Heparin Sodium (Porcine) (Heparin Sodium,Porcine 5,000 Unit/Ml Vial) 5,000 unit SUBCUT Q8H [facility] Last Admin: 08/14/22 05:27 Dose: 5,000 unit Hydromorphone HCl (Hydromorphone Hcl 1 Mg/Ml Syringe) 1 mg IVPUSH Q4H PRN; Protocol PRN Reason: Pain, Severe (Pain Scale 7-10) Last Admin: 08/14/22 01:38 Dose: 1 mg Ondansetron HCl (Ondansetron Hcl 4 Mg/2 Ml Vial) 4 mg IVPUSH Q8H PRN PRN Reason: Nausea and Vomiting Last Admin: 08/11/22 08:06 Dose: 4 mg Pharmacy Consult (Consult Rx Perform Med Rec) 1 each MISCELLANE ONCE PRN PRN Reason: Consult order Sodium Chloride (0.9 % Sodium Chloride Flush 3 Ml Syringe) 3 ml IVFLUSH QSHIFT [facility] Last Admin: 08/14/22 09:20 Dose: 3 ml Home Medications Medication Instructions Recorded Confirmed Type vitamin B complex 1 cap PO DAILY 06/03/22 08/10/22 History Allergies Allergy/AdvReac Type Severity Reaction Status Date / Time No Known Allergies Allergy Verified 08/07/22 14:13 [No Known Allergies*] Exam Vital signs: Vital Signs Temp 97.0 F 08/14/22 08:00 Pulse 81 08/14/22 08:00 Resp 20 08/14/22 08:00 BP 124/65 08/14/22 08:00 Pulse Ox 98 08/14/22 08:00 O2 Del Method 08/14/22 08:00 Intake & Output 08/13/22 08/14/22 08/14/22 18:59 06:59 18:59 Intake Total 270 / 750 480 / 750 Output Total 200 / 500 300 / 500 Balance 70 / 250 180 / 250 Urine Output (Average ml/kg/hr) 0.31 0.47 Intake: Intake, Oral Amount 270 / 750 480 / 750 Output: Output, Urine Amount 200 / 500 300 / 500 Other: Breakfast % Eaten 25% Lunch % Eaten 25% Urine [facility] CATH Weight 53 kg BMI result Body Mass Index 15.8 - Constitutional Present: no acute distress, moderate distress - Routine HEENT Exam Head: Present: normal inspection, normocephalic Eye: Present: normal appearance - Routine Neck Exam Present: full ROM - Routine Chest/Breast/Axilla Exam Breast: Present: Normal Exam - Routine Respiratory Exam Present: decreased breath sounds, CTAB - Routine Cardiovascular Exam Cardiovascular: Present: RRR, S1, S2, tachycardia - Routine Abdominal Exam Present: diminished bowel sounds, tenderness - Routine Extremities Exam Present: nontender - Routine Skin Exam Present: intact, normal turgor - Routine Psychiatric Exam Present: normal affect Data - Labs CBC & Chem 7: 08/11/22 06:03 08/11/22 14:03 Labs: 08/10/22 14:00 ECG 12 lead EKG Stat EKG Documentation DIRECTED 08/10/22 14:14 CT abdomen pelvis w IV con Stat CT chest w IV con Stat CT head/brain wo IV con Stat 08/10/22 14:21 COVID-19 ID NOW ([place]) Stat 08/10/22 14:22 Basic Metabolic Panel Stat Complete Blood Count Auto Diff Stat Lactic Acid Stat Liver Panel Stat Magnesium Stat Troponin-I High Sensitivity Stat 08/10/22 15:12 Morphine Sulfate 4 mg IVPUSH ONCE ONE ondansetron HCL [Zofran] 4 mg IVPUSH ONCE ONE 08/10/22 15:15 0.9 % Sodium Chloride [Ns] 1,000 ml IV 999 mls/hr 08/10/22 15:57 iohexoL 350 MG/ML [Omnipaque 350 MG/ML] 85 ml IV ONCE ONE 08/10/22 16:32 HYDROmorphone HCl [Dilaudid] 1 mg IVPUSH ONCE ONE 08/10/22 17:19 HYDROmorphone HCl [Dilaudid] 1 mg IVPUSH ONCE ONE 08/10/22 17:22 ~Lactic Acid-LAB USE ONLY Stat 08/10/22 17:30 0.9 % Sodium Chloride [Ns] 1,000 ml IVCONT 80 mls/hr 08/10/22 17:53 Code Status Routine 08/10/22 17:56 Sodium Polystyrene Sulfon/Sorb [Kayexalate] 30 gm PO ONCE ONE 08/10/22 19:46 ~Lactic Acid-LAB USE ONLY Stat 08/11/22 06:03 Basic Metabolic Panel DAILY@0600 Complete Blood Count no Diff DAILY@0600 Prothrombin Time INR DAILY@0600 08/11/22 06:45 Glucose, Whole Blood Routine 08/11/22 07:38 Glucose, Whole Blood Routine 08/11/22 07:49 Dextrose 50 % [D50] 25 gm IVPUSH ONCE ONE 08/11/22 07:51 Sodium Polystyrene Sulfon/Sorb [Kayexalate] 30 gm PO ONCE ONE 08/11/22 08:00 Dextrose 5 % and Lactated Ring [D5lr] 1,000 ml IVCONT 80 mls/hr 08/11/22 08:18 Glucose, Whole Blood Routine 08/11/22 14:03 BMP [Basic Metabolic Panel] Routine Laboratory Last Values WBC 5.7 X10*3/uL (4.8-10.8) 08/11/22 06:03 RBC 3.21 X10*6/uL (4.60-5.80) L 08/11/22 06:03 Hgb 10.2 g/dl (14.0-18.0) L 08/11/22 06:03 Hct 31.7 % (42.0-52.0) L 08/11/22 06:03 MCV 98.8 fL (80.0-98.0) H 08/11/22 06:03 MCH 31.8 pg (27.0-33.0) 08/11/22 06:03 MCHC 32.2 g/dl (31.0-36.0) 08/11/22 06:03 RDW 20.5 % (11.0-16.0) H 08/11/22 06:03 Plt Count 217 X10*3/uL (160-400) 08/11/22 06:03 MPV 10.3 fL (9.4-12.4) 08/11/22 06:03 Immature Gran % (Auto) 0.6 % (0.0-0.4) H 08/10/22 14:22 Neut % (Auto) 77.4 % (45-73) H 08/10/22 14:22 Lymph % (Auto) 10.7 % (20-40) L 08/10/22 14:22 Lassen % (Auto) 10.8 % (2-11) 08/10/22 14:22 Eos % (Auto) 0.2 % (0-4) 08/10/22 14:22 Baso % (Auto) 0.3 % (0-2) 08/10/22 14:22 Lymph # (Auto) 0.7 X10*3/uL (1.2-4.9) L 08/10/22 14:22 Lassen # (Auto) 0.7 X10*3/uL (0.1-1.2) 08/10/22 14:22 Eos # (Auto) 0.0 X10*3/uL (0.0-0.4) 08/10/22 14:22 Baso # (Auto) 0.0 X10*3/uL (0.0-0.2) 08/10/22 14:22 Abs Immat Gran (auto) 0.04 X10*3/uL (0.00-0.03) H 08/10/22 14:22 Absolute Neuts (auto) 5.0 x10*3/uL (2.0-8.3) 08/10/22 14:22 Absolute Nucleated RBC 0.000 X10*3/uL (0.0-0.012) 08/11/22 06:03 Nucleated RBC % (auto) 0.0 /100WBC (0.0-0.2) 08/11/22 06:03 PT 14.1 SEC (10.0-13.1) H 08/11/22 06:03 INR 1.2 (0.9-1.1) H 08/11/22 06:03 Sodium 133 mmol/L (135-145) L 08/11/22 14:03 Potassium 4.7 mmol/L (3.3-5.1) 08/11/22 14:03 Chloride 99 mmol/L (96-108) 08/11/22 14:03 Carbon Dioxide 23 mmol/L (22-29) 08/11/22 14:03 Anion Gap 16 (12-20) 08/11/22 14:03 BUN 36 mg/dL (9-16) H 08/11/22 14:03 Creatinine 0.78 mg/dL (0.5-1.4) 08/11/22 14:03 Estim Creat Clear Calc 56.6 08/11/22 14:03 Estimated GFR > 60 08/11/22 14:03 POC Glucose 127 mg/dL (60-115) H 08/11/22 08:18 Random Glucose 86 mg/dL (60-115) 08/11/22 14:03 Lactic Acid 2.5 mmol/L (0.5-2.0) H* 08/10/22 14:22 Lactic Acid F/U @ 2Hr 2.6 mmol/L (0.5-2.0) H* 08/10/22 17:22 Lactic Acid F/U @ 4Hr 2.0 mmol/L (0.5-2.0) 08/10/22 19:46 Calcium 8.5 mg/dL (8.4-10.2) 08/11/22 14:03 Magnesium 2.4 mg/dL (1.6-2.6) 08/10/22 14:22 Total Bilirubin 4.3 mg/dL (0.0-1.0) H 08/10/22 14:22 Direct Bilirubin 3.1 mg/dL (0.0-0.5) H 08/10/22 14:22 AST 151 U/L (5-37) H 08/10/22 14:22 ALT 36 U/L (0-40) 08/10/22 14:22 Alkaline Phosphatase 864 U/L (39-117) H D 08/10/22 14:22 Troponin I High Sens < 3.5 ng/L (<3.5-35.0) 08/10/22 14:22 Total Protein 7.3 g/dL (6.5-8.0) 08/10/22 14: Albumin 2.5 g/dL (3.5-5.0) L D 08/10/22 14:22 COVID-19 ([facility]) Positive (Negative) A 08/10/22 14:21 COVID-19 Clin Com See Note 08/10/22 14:21 - Imaging Radiologist's impression: ITS Impressions Abdomen/Pelvis CT 08/10/22 16:00 IMPRESSION: 1. There has been significant interval increase in the size and conspicuity of the innumerable hepatic lesions as described above. The dominant 13.7 cm lesion crossing the right and left lobes of the liver has increased in size from the prior 07/08/2022 study. There are additional smaller hepatic lesions now evident as well. The large peripancreatic lymph node has not significantly increased in size from the prior study. 2. There is a new wedge-shaped region of airspace disease in the posterior aspect of the left lower lobe. I do not appreciate any new or suspicious pulmonary nodules. Infectious or inflammatory etiologies possible. 3. Small amount of abdominal ascites is seen, increased from the prior study. 4. Chronic appearing and postoperative changes as described above. 5. There is mild fullness to the left adrenal gland more prominent from prior study. Chest CT 08/10/22 16:00 IMPRESSION: 1. There has been significant interval increase in the size and conspicuity of the innumerable hepatic lesions as described above. The dominant 13.7 cm lesion crossing the right and left lobes of the liver has increased in size from the prior 07/08/2022 study. There are additional smaller hepatic lesions now evident as well. The large peripancreatic lymph node has not significantly increased in size from the prior study. 2. There is a new wedge-shaped region of airspace disease in the posterior aspect of the left lower lobe. I do not appreciate any new or suspicious pulmonary nodules. Infectious or inflammatory etiologies possible. 3. Small amount of abdominal ascites is seen, increased from the prior study. 4. Chronic appearing and postoperative changes as described above. 5. There is mild fullness to the left adrenal gland more prominent from prior study. Head CT 08/10/22 16:00 IMPRESSION: No acute intracranial pathology. Assessment and Plan Patient Active problem list reviewed?: Yes (1) Gastric adenocarcinoma Start date: 08/14/22 Status: Acute Assessment and plan: I agree with current treatment. Hopefully he will respond to second line therapy. - Time Spent With Patient Time Spent with Patient (in minutes): 15
[2022-08-14 11:51] LABS: Hematocrit 34.4 % (42.0-52.0); Mean Corpuscular Hemoglobin 31.5 pg (27.0-33.0); Mean Corpuscular Volume 98.6 fL (80.0-98.0); Mean Platelet Volume 10.3 fL (9.4-12.4); Platelet Count 165 X10*3/uL (160-400); Red Blood Count 3.49 X10*6/uL (4.60-5.80); Red Cell Distribution Width 21.1 % (11.0-16.0); White Blood Count 5.6 X10*3/uL (4.8-10.8)
[2022-08-14 12:24] LABS: Anion Gap 14 (12-20); Blood Urea Nitrogen 21 mg/dL (9-16); Calcium 8.5 mg/dL (8.4-10.2); Carbon Dioxide 23 mmol/L (22-29); Chloride 98 mmol/L (96-108); Creatinine Clr Calc Pharmacy 73.6; Estimated Glomerular Filt Rate > 60; Glucose Fasting 72 mg/dL (60-99); Potassium 4.1 mmol/L (3.3-5.1); Sodium 131 mmol/L (135-145)
[2022-08-15] MEDS: 0.9 % Sodium Chloride Flush 3 ML SYRINGE IVFLUSH ×4 (00:21→23:41)
[2022-08-15] MEDS: HYDROmorphone HCl 1 MG/ML SYRINGE IVPUSH ×5 (02:07→23:41)
[2022-08-15 02:41] VITALS: BP 113/71; PULSE 82; RESP 16; TEMP 36.1; O2SAT 94
[2022-08-15] MEDS: Heparin Sodium,Porcine 5,000 UNIT/ML VIAL 5000 UNIT SUBCUT ×3 (05:38→20:17)
[2022-08-15 07:44] VITALS: BP 125/85; PULSE 76; RESP 17; TEMP 36.6; O2SAT 97
--- NOTE | 2022-08-15 10:08 | HO.PM.IMPN ---
Subjective Subjective Date of Service: 08/15/22 Interval History: cc: pain interval history:pain Cardiovascular Cardiovascular: Reports no additional cardiovascular complaints Respiratory Respiratory: Reports no additional respiratory complaints Physical Exam Vital Signs: Vital Signs: Last Vital Signs Temp 97.8 F 08/15/22 07:44 Pulse 76 08/15/22 07:44 Resp 17 08/15/22 07:44 BP 125/85 08/15/22 07:44 Pulse Ox 97 08/15/22 07:44 O2 Del Method 08/15/22 07:44 BMI result Body Mass Index 15.8 General: AO X 3, cachexia Resp: CTA bilateral, no accessory muscles used CVS: S1,S2,RRR GI: soft, non tender, non distended Neuro: motor grossly intact, alert Psych: appropriate affect, appropriate insight Objective Data Active Medications Heparin Sodium (Porcine) (Heparin Sodium,Porcine 5,000 Unit/Ml Vial) 5,000 unit SUBCUT Q8H [facility] Last Admin: 08/15/22 05:38 Dose: 5,000 unit Documented By: ARLENE Hydromorphone HCl (Hydromorphone Hcl 1 Mg/Ml Syringe) 1 mg IVPUSH Q4H PRN; Protocol PRN Reason: Pain, Severe (Pain Scale 7-10) Last Admin: 08/15/22 09:20 Dose: 1 mg Documented By: PADDY Ondansetron HCl (Ondansetron Hcl 4 Mg/2 Ml Vial) 4 mg IVPUSH Q8H PRN PRN Reason: Nausea and Vomiting Last Admin: 08/11/22 08:06 Dose: 4 mg Documented By: MAXIMINO Pharmacy Consult (Consult Rx Perform Med Rec) 1 each MISCELLANE ONCE PRN PRN Reason: Consult order Sodium Chloride (0.9 % Sodium Chloride Flush 3 Ml Syringe) 3 ml IVFLUSH QSHIFT [facility] Last Admin: 08/15/22 09:20 Dose: 3 ml Documented By: PADDY Labs CBC & Chem 7: 08/14/22 11:34 08/14/22 11:34 Labs: Laboratory Results - last 24 hr 08/14/22 08/14/22 11:34 11:34 MCV 98.6 H MCH 31.5 MCHC 32.0 RDW 21.1 H Plt Count 165 MPV 10.3 Absolute Nucleated RBC 0.000 Nucleated RBC % (auto) 0.0 Anion Gap 14 Estim Creat Clear Calc 73.6 Estimated GFR > 60 Fasting Glucose 72 Calcium 8.5 Assessment and Plan (1) Gastric out let obstruction: Status: Acute (2) Gastric adenocarcinoma: Status: Acute (3) Liver metastases: Status: Acute Plan An 82 years old male with gastric cancer with liver Mets who presents to the hospital with worsening chest and abdominal pain, decreased oral intake. Intractable abdominal pain secondary to metastatic gastric adenocarcinoma complicated by moderate protein calorie malnutrition pain better controlled now Dilaudid p.r.n. DNR\DNI with plan for hospice but patient wants brother present for discussion Transaminitis Secondary to liver metastases On palliative chemotherapy Hyperkalemia Kayexalate given Monitor BMP Hyponatremia Secondary to liver Mets and decreased oral intake Follow BMP Moderate malnutrition secondary to adult failure to thrive Continue megestrol Add Ensure with meals DVT PPX Heparin dnr/dni reason for continued hospitalization: safe discharge plan pending hospice team eval Quality Stroke Does the patient have a stroke diagnosis?: No VTE Prior VTE?: No VTE Risk Level:: Medical - moderate - high VTE Device Contraindication: Treatment Not Indicated VTE Drug Contraindication: N/A - Med Ordered
--- NOTE | 2022-08-15 11:14 | P.PNHO-ONC_ITS ---
Medical Summary - Medical Summary Date of Service: 08/15/22 Medical Summary: DIAGNOSIS: 1. 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 2. RECENT COVID INFECTION. Interval History Interval history: His pain is better controlled and he is alert and awake but seems confused.He has had no new problems overnight. He still complains of abdomina and generalized discomfort. Review of Systems - Constitutional Reports anorexia, Reports weakness - Cardiovascular Reports fast heart rate, Reports lightheadedness - Respiratory Reports cough - Gastrointestinal Reports abdominal pain - Genitourinary Genitourinary: Reports decreased urination - Musculoskeletal Reports muscle weakness - Neurologic Reports system reviewed and no additional complaints, except as documented, Reports headache(s), Reports weakness, Denies abnormal speech, Denies numbness, Denies tingling PMFSH Medical History: Medical History (Last Reviewed 08/10/22 @ 18:14 by Raghavendra Lundberg MD) Bacteremia Gastric adenocarcinoma Gastric out let obstruction Hypertension Liver metastases Vertigo Functional capacity: bed bound Family History: Family History (Last Reviewed 08/10/22 @ 18:14 by Raghavendra Lundberg MD) Father Past heart attack Mother Past heart attack Surgical History: Surgical History (Last Reviewed 08/10/22 @ 18:14 by Raghavendra Lundberg MD) H/O bypass gastrojejunostomy History of appendectomy S/P bypass gastrojejunostomy Social History: Social History (Last Reviewed 08/10/22 @ 18:14 by Raghavendra Lundberg MD) Living Situation History: Household Members: Family Housing: Apartment Do you presently have visiting nurse or other home services: No Tobacco History: Patient Tobacco Use Status: Former Tobacco user Tobacco use type: Cigarette Years Smoked: 30 Smoke Quit Date: quit 26 yr ago e-Cigarette/Vaping Use: Never Used Second Hand Smoke Exposure: No Advance Directives: Advance Directives Date on File: 11/12/21 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 occupational status: retired Home Medications and Allergies Current Medications: Current Medications Heparin Sodium (Porcine) (Heparin Sodium,Porcine 5,000 Unit/Ml Vial) 5,000 unit SUBCUT Q8H [facility] Last Admin: 08/15/22 05:38 Dose: 5,000 unit Hydromorphone HCl (Hydromorphone Hcl 1 Mg/Ml Syringe) 1 mg IVPUSH Q4H PRN; Protocol PRN Reason: Pain, Severe (Pain Scale 7-10) Last Admin: 08/15/22 09:20 Dose: 1 mg Ondansetron HCl (Ondansetron Hcl 4 Mg/2 Ml Vial) 4 mg IVPUSH Q8H PRN PRN Reason: Nausea and Vomiting Last Admin: 08/11/22 08:06 Dose: 4 mg Pharmacy Consult (Consult Rx Perform Med Rec) 1 each MISCELLANE ONCE PRN PRN Reason: Consult order Sodium Chloride (0.9 % Sodium Chloride Flush 3 Ml Syringe) 3 ml IVFLUSH QSHIFT [facility] Last Admin: 08/15/22 09:20 Dose: 3 ml Home Medications Medication Instructions Recorded Confirmed Type vitamin B complex 1 cap PO DAILY 06/03/22 08/10/22 History Allergies Allergy/AdvReac Type Severity Reaction Status Date / Time No Known Allergies Allergy Verified 08/07/22 14:13 [No Known Allergies*] Exam Vital signs: Vital Signs Temp 97.8 F 08/15/22 07:44 Pulse 76 08/15/22 07:44 Resp 17 08/15/22 07:44 BP 125/85 08/15/22 07:44 Pulse Ox 97 08/15/22 07:44 O2 Del Method 08/15/22 07:44 Intake & Output 08/14/22 08/15/22 08/15/22 18:59 06:59 18:59 Intake Total 240 / 340 100 / 340 Output Total 225 / 475 250 / 475 Balance 15 / -135 -150 / -135 Urine Output (Average ml/kg/hr) 0.35 0.39 Intake: Intake, Oral Amount 240 / 340 100 / 340 Output: Output, Urine Amount 225 / 475 250 / 475 Other: Urine [place] CATH Urine Color Wendy Weight 53 kg BMI result Body Mass Index 15.8 - Constitutional Present: no acute distress, moderate distress - Routine HEENT Exam Head: Present: atraumatic, normal inspection, normocephalic - Routine Neck Exam Present: full ROM - Routine Respiratory Exam Present: decreased breath sounds, CTAB - Routine Cardiovascular Exam Cardiovascular: Present: RRR, S1, S2, tachycardia - Routine Abdominal Exam Present: diminished bowel sounds, tenderness - Routine Extremities Exam Present: nontender - Routine Skin Exam Present: intact, normal turgor - Routine Psychiatric Exam Present: normal affect Data - Labs CBC & Chem 7: 08/14/22 11:34 08/14/22 11:34 - Imaging Radiologist's impression: ITS Impressions Abdomen/Pelvis CT 08/10/22 16:00 IMPRESSION: 1. There has been significant interval increase in the size and conspicuity of the innumerable hepatic lesions as described above. The dominant 13.7 cm lesion crossing the right and left lobes of the liver has increased in size from the prior 07/08/2022 study. There are additional smaller hepatic lesions now evident as well. The large peripancreatic lymph node has not significantly increased in size from the prior study. 2. There is a new wedge-shaped region of airspace disease in the posterior aspect of the left lower lobe. I do not appreciate any new or suspicious pulmonary nodules. Infectious or inflammatory etiologies possible. 3. Small amount of abdominal ascites is seen, increased from the prior study. 4. Chronic appearing and postoperative changes as described above. 5. There is mild fullness to the left adrenal gland more prominent from prior study. Chest CT 08/10/22 16:00 IMPRESSION: 1. There has been significant interval increase in the size and conspicuity of the innumerable hepatic lesions as described above. The dominant 13.7 cm lesion crossing the right and left lobes of the liver has increased in size from the prior 07/08/2022 study. There are additional smaller hepatic lesions now evident as well. The large peripancreatic lymph node has not significantly increased in size from the prior study. 2. There is a new wedge-shaped region of airspace disease in the posterior aspect of the left lower lobe. I do not appreciate any new or suspicious pulmonary nodules. Infectious or inflammatory etiologies possible. 3. Small amount of abdominal ascites is seen, increased from the prior study. 4. Chronic appearing and postoperative changes as described above. 5. There is mild fullness to the left adrenal gland more prominent from prior study. Head CT 08/10/22 16:00 IMPRESSION: No acute intracranial pathology. Assessment and Plan Patient Active problem list reviewed?: Yes (1) Gastric adenocarcinoma Start date: 08/14/22 Status: Acute Assessment and plan: I agree with current treatment. Hopefully he will respond to second line therapy. I will follow over this long weekend. - Time Spent With Patient Time Spent with Patient (in minutes): 15
[2022-08-15 11:22] VITALS: BP 130/70; PULSE 88; RESP 17; TEMP 36.8; O2SAT 97
--- NOTE | 2022-08-15 12:53 | MHC.CLN ---
F/U DIET RX: REGULAR GRD/M/S-APPROPRIATE PT RECEIVING ENSURE CLEAR TID TO PROVIDE 720KCALS, 24G PROTEIN PT ALSO ON MEGACE PER MD TO INCREASE APPETITE INTAKE APPEARS POOR, WITH 25% TAKEN AT MEALS. FOLLOWING WITH TEAM.
[2022-08-15 16:00] VITALS: BP 93/60; PULSE 98; RESP 19; TEMP 36.4; O2SAT 92
[2022-08-15] MEDS: ondansetron HCL 4 MG/2 ML VIAL IVPUSH (17:03)
[2022-08-15 19:51] VITALS: BP 114/70; PULSE 80; RESP 19; TEMP 35.9; O2SAT 92
[2022-08-16] VITALS: BP 127/67; PULSE 72; RESP 18; O2SAT 98
[2022-08-16] MEDS: HYDROmorphone HCl 1 MG/ML SYRINGE IVPUSH ×4 (03:38→18:28)
[2022-08-16] MEDS: Heparin Sodium,Porcine 5,000 UNIT/ML VIAL 5000 UNIT SUBCUT ×2 (03:59→20:26)
[2022-08-16 04:00] VITALS: BP 105/56; PULSE 87; RESP 18; O2SAT 94
[2022-08-16] MEDS: 0.9 % Sodium Chloride Flush 3 ML SYRINGE IVFLUSH ×2 (07:41→18:28)
[2022-08-16 08:00] VITALS: BP 102/72; PULSE 80; RESP 19; TEMP 36.6; O2SAT 98
--- NOTE | 2022-08-16 09:27 | PM.HEMONCPN ---
Medical Summary - Medical Summary Date of Service: 08/16/22 Medical Summary: DIAGNOSIS: 1. 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 2. RECENT COVID INFECTION. Interval History Interval history: His pain is better controlled and he is alert and awake but seems confused.He has had no new problems overnight. He says the abdominal pi is better. He seems somewhat confused but stabe. Review of Systems - Neurologic Reports system reviewed and no additional complaints, except as documented, Reports headache(s), Reports weakness, Denies abnormal speech, Denies numbness, Denies tingling PMFSH Medical History: Medical History (Last Reviewed 08/10/22 @ 18:14 by Raghavendra Lundberg MD) Bacteremia Gastric adenocarcinoma Gastric out let obstruction Hypertension Liver metastases Vertigo Functional capacity: bed bound Family History: Family History (Last Reviewed 08/10/22 @ 18:14 by Raghavendra Lundberg MD) Father Past heart attack Mother Past heart attack Surgical History: Surgical History (Last Reviewed 08/10/22 @ 18:14 by Raghavendra Lundberg MD) H/O bypass gastrojejunostomy History of appendectomy S/P bypass gastrojejunostomy Social History: Social History (Last Reviewed 08/10/22 @ 18:14 by Raghavendra Lundberg MD) Living Situation History: Household Members: Family Housing: Apartment Do you presently have visiting nurse or other home services: No Tobacco History: Patient Tobacco Use Status: Former Tobacco user Tobacco use type: Cigarette Years Smoked: 30 Smoke Quit Date: quit 26 yr ago e-Cigarette/Vaping Use: Never Used Second Hand Smoke Exposure: No Advance Directives: Advance Directives Date on File: 11/12/21 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 occupational status: retired Home Medications and Allergies Current Medications: Current Medications Heparin Sodium (Porcine) (Heparin Sodium,Porcine 5,000 Unit/Ml Vial) 5,000 unit SUBCUT Q8H [facility] Last Admin: 08/16/22 03:59 Dose: 5,000 unit Hydromorphone HCl (Hydromorphone Hcl 1 Mg/Ml Syringe) 1 mg IVPUSH Q4H PRN; Protocol PRN Reason: Pain, Severe (Pain Scale 7-10) Last Admin: 08/16/22 07:41 Dose: 1 mg Ondansetron HCl (Ondansetron Hcl 4 Mg/2 Ml Vial) 4 mg IVPUSH Q8H PRN PRN Reason: Nausea and Vomiting Last Admin: 08/15/22 17:03 Dose: 4 mg Pharmacy Consult (Consult Rx Perform Med Rec) 1 each MISCELLANE ONCE PRN PRN Reason: Consult order Sodium Chloride (0.9 % Sodium Chloride Flush 3 Ml Syringe) 3 ml IVFLUSH QSHIFT [facility] Last Admin: 08/16/22 07:41 Dose: 3 ml Home Medications Medication Instructions Recorded Confirmed Type vitamin B complex 1 cap PO DAILY 06/03/22 08/10/22 History Allergies Allergy/AdvReac Type Severity Reaction Status Date / Time No Known Allergies Allergy Verified 08/07/22 14:13 [No Known Allergies*] Exam Vital signs: Vital Signs Temp 97.8 F 08/16/22 08:00 Pulse 80 08/16/22 08:00 Resp 19 08/16/22 08:00 BP 102/72 08/16/22 08:00 Pulse Ox 98 08/16/22 08:00 O2 Del Method 08/16/22 08:00 Intake & Output 08/15/22 08/16/22 08/16/22 18:59 06:59 18:59 Intake Total 100 / 150 50 / 150 Output Total 225 / 425 200 / 425 Balance -125 / -275 -150 / -275 Urine Output (Average ml/kg/hr) 0.35 0.31 Intake: Intake, Oral Amount 100 / 150 50 / 150 Output: Output, Urine Amount 225 / 425 200 / 425 Other: Lunch % Eaten 25% Weight 53 kg BMI result Body Mass Index 15.8 - Constitutional Present: no acute distress, moderate distress - Routine HEENT Exam Head: Present: atraumatic, normal inspection, normocephalic - Routine Neck Exam Present: full ROM - Routine Respiratory Exam Present: decreased breath sounds, CTAB - Routine Cardiovascular Exam Cardiovascular: Present: RRR, S1, S2, tachycardia - Routine Abdominal Exam Present: diminished bowel sounds, tenderness - Routine Extremities Exam Present: nontender - Routine Skin Exam Present: intact, normal turgor - Routine Psychiatric Exam Present: normal affect Data - Labs CBC & Chem 7: 08/14/22 11:34 08/14/22 11:34 - Imaging Radiologist's impression: ITS Impressions Abdomen/Pelvis CT 08/10/22 16:00 IMPRESSION: 1. There has been significant interval increase in the size and conspicuity of the innumerable hepatic lesions as described above. The dominant 13.7 cm lesion crossing the right and left lobes of the liver has increased in size from the prior 07/08/2022 study. There are additional smaller hepatic lesions now evident as well. The large peripancreatic lymph node has not significantly increased in size from the prior study. 2. There is a new wedge-shaped region of airspace disease in the posterior aspect of the left lower lobe. I do not appreciate any new or suspicious pulmonary nodules. Infectious or inflammatory etiologies possible. 3. Small amount of abdominal ascites is seen, increased from the prior study. 4. Chronic appearing and postoperative changes as described above. 5. There is mild fullness to the left adrenal gland more prominent from prior study. Chest CT 08/10/22 16:00 IMPRESSION: 1. There has been significant interval increase in the size and conspicuity of the innumerable hepatic lesions as described above. The dominant 13.7 cm lesion crossing the right and left lobes of the liver has increased in size from the prior 07/08/2022 study. There are additional smaller hepatic lesions now evident as well. The large peripancreatic lymph node has not significantly increased in size from the prior study. 2. There is a new wedge-shaped region of airspace disease in the posterior aspect of the left lower lobe. I do not appreciate any new or suspicious pulmonary nodules. Infectious or inflammatory etiologies possible. 3. Small amount of abdominal ascites is seen, increased from the prior study. 4. Chronic appearing and postoperative changes as described above. 5. There is mild fullness to the left adrenal gland more prominent from prior study. Head CT 08/10/22 16:00 IMPRESSION: No acute intracranial pathology. Assessment and Plan Patient Active problem list reviewed?: Yes (1) Gastric adenocarcinoma Start date: 08/14/22 Status: Acute Assessment and plan: I agree with current treatment. Hopefully he will respond to second line therapy. I will follow over this long weekend. - Time Spent With Patient Time Spent with Patient (in minutes): 15
--- NOTE | 2022-08-16 11:16 | HO.PM.IMPN ---
Subjective Subjective Date of Service: 08/16/22 Interval History: cc: pain interval history:pain Cardiovascular Cardiovascular: Reports no additional cardiovascular complaints Respiratory Respiratory: Reports no additional respiratory complaints Physical Exam Vital Signs: Vital Signs: Last Vital Signs Temp 97.8 F 08/16/22 08:00 Pulse 80 08/16/22 08:00 Resp 19 08/16/22 08:00 BP 102/72 08/16/22 08:00 Pulse Ox 98 08/16/22 08:00 O2 Del Method 08/16/22 08:00 BMI result Body Mass Index 15.8 General: AO X 3, cachexia Resp: CTA bilateral, no accessory muscles used CVS: S1,S2,RRR GI: soft, non tender, non distended Neuro: motor grossly intact, alert Psych: appropriate affect, appropriate insight Objective Data Active Medications Heparin Sodium (Porcine) (Heparin Sodium,Porcine 5,000 Unit/Ml Vial) 5,000 unit SUBCUT Q8H [facility] Last Admin: 08/16/22 03:59 Dose: 5,000 unit Documented By: BERNARDINO Hydromorphone HCl (Hydromorphone Hcl 1 Mg/Ml Syringe) 1 mg IVPUSH Q4H PRN; Protocol PRN Reason: Pain, Severe (Pain Scale 7-10) Last Admin: 08/16/22 07:41 Dose: 1 mg Documented By: PADDY Ondansetron HCl (Ondansetron Hcl 4 Mg/2 Ml Vial) 4 mg IVPUSH Q8H PRN PRN Reason: Nausea and Vomiting Last Admin: 08/15/22 17:03 Dose: 4 mg Documented By: PADDY Pharmacy Consult (Consult Rx Perform Med Rec) 1 each MISCELLANE ONCE PRN PRN Reason: Consult order Sodium Chloride (0.9 % Sodium Chloride Flush 3 Ml Syringe) 3 ml IVFLUSH QSHIFT [facility] Last Admin: 08/16/22 07:41 Dose: 3 ml Documented By: PADDY Labs CBC & Chem 7: 08/14/22 11:34 08/14/22 11:34 Microbiology Microbiology Results: Microbiology 08/10/22 16:23 Blood Culture - Final Blood - Venous No growth after 5 days. 08/10/22 16:23 Blood Culture - Final Blood - Venous No growth after 5 days. Assessment and Plan (1) Gastric out let obstruction: Status: Acute (2) Gastric adenocarcinoma: Status: Acute (3) Liver metastases: Status: Acute Plan An 82 years old male with gastric cancer with liver Mets who presents to the hospital with worsening chest and abdominal pain, decreased oral intake. Intractable abdominal pain secondary to metastatic gastric adenocarcinoma complicated by moderate protein calorie malnutrition pain better controlled now Dilaudid p.r.n. DNR\DNI with plan for hospice but patient wants brother present for discussion Transaminitis Secondary to liver metastases On palliative chemotherapy Hyperkalemia Kayexalate given Monitor BMP Hyponatremia Secondary to liver Mets and decreased oral intake Follow BMP Moderate malnutrition secondary to adult failure to thrive Continue megestrol Add Ensure with meals DVT PPX Heparin dnr/dni reason for continued hospitalization: safe discharge plan pending hospice team eval Quality Stroke Does the patient have a stroke diagnosis?: No VTE Prior VTE?: No VTE Risk Level:: Medical - moderate - high VTE Device Contraindication: Treatment Not Indicated VTE Drug Contraindication: N/A - Med Ordered
[2022-08-16] MEDS: ondansetron HCL 4 MG/2 ML VIAL IVPUSH (12:59)
[2022-08-16 16:00] VITALS: BP 114/70; PULSE 84; RESP 19; TEMP 36.1; O2SAT 100
[2022-08-16 20:00] VITALS: BP 115/72; PULSE 80; RESP 6; TEMP 36.6; O2SAT 96
[2022-08-16 23:57] VITALS: BP 128/81; PULSE 75; RESP 11; TEMP 36.4; O2SAT 96
[2022-08-17] MEDS: HYDROmorphone HCl 1 MG/ML SYRINGE IVPUSH ×6 (00:21→21:53)
[2022-08-17 04:00] VITALS: BP 123/82; PULSE 82; RESP 20; TEMP 36.4; O2SAT 100
[2022-08-17 08:00] VITALS: BP 118/73; PULSE 78; RESP 15; TEMP 36.4; O2SAT 96
[2022-08-17] MEDS: 0.9 % Sodium Chloride Flush 3 ML SYRINGE IVFLUSH ×3 (08:54→21:54)
--- NOTE | 2022-08-17 11:36 | P.PNIM_ITS ---
Subjective Subjective Date of Service: 08/17/22 Interval History: cc: pain interval history:pain Cardiovascular Cardiovascular: Reports no additional cardiovascular complaints Respiratory Respiratory: Reports no additional respiratory complaints Physical Exam Vital Signs: Vital Signs: Last Vital Signs Temp 97.6 F 08/17/22 08:00 Pulse 78 08/17/22 08:00 Resp 15 08/17/22 08:00 BP 118/73 08/17/22 08:00 Pulse Ox 96 08/17/22 08:00 O2 Del Method 08/17/22 08:00 BMI result Body Mass Index 15.8 General: AO X 3, cachexia Resp: CTA bilateral, no accessory muscles used CVS: S1,S2,RRR GI: soft, non tender, non distended Neuro: motor grossly intact, alert Psych: appropriate affect, appropriate insight Objective Data Active Medications Heparin Sodium (Porcine) (Heparin Sodium,Porcine 5,000 Unit/Ml Vial) 5,000 unit SUBCUT Q8H [facility] Last Admin: 08/17/22 04:37 Dose: Not Given Documented By: ANA Non-Admin Reason: Patient Refused Hydromorphone HCl (Hydromorphone Hcl 1 Mg/Ml Syringe) 1 mg IVPUSH Q4H PRN; Protocol PRN Reason: Pain, Severe (Pain Scale 7-10) Last Admin: 08/17/22 08:54 Dose: 1 mg Documented By: PADDY Ondansetron HCl (Ondansetron Hcl 4 Mg/2 Ml Vial) 4 mg IVPUSH Q8H PRN PRN Reason: Nausea and Vomiting Last Admin: 08/16/22 12:59 Dose: 4 mg Documented By: PADDY Pharmacy Consult (Consult Rx Perform Med Rec) 1 each MISCELLANE ONCE PRN PRN Reason: Consult order Sodium Chloride (0.9 % Sodium Chloride Flush 3 Ml Syringe) 3 ml IVFLUSH QSHIFT [facility] Last Admin: 08/17/22 08:54 Dose: 3 ml Documented By: PADDY Labs CBC & Chem 7: 08/14/22 11:34 08/14/22 11:34 Assessment and Plan (1) Gastric out let obstruction: Status: Acute (2) Gastric adenocarcinoma: Status: Acute (3) Liver metastases: Status: Acute Plan An 82 years old male with gastric cancer with liver Mets who presents to the hospital with worsening chest and abdominal pain, decreased oral intake. Intractable abdominal pain secondary to metastatic gastric adenocarcinoma complicated by moderate protein calorie malnutrition pain better controlled now Dilaudid p.r.n. DNR\DNI with plan for hospice Transaminitis Secondary to liver metastases On palliative chemotherapy Hyperkalemia Kayexalate given Monitor BMP Hyponatremia Secondary to liver Mets and decreased oral intake Follow BMP Moderate malnutrition secondary to adult failure to thrive Continue megestrol Add Ensure with meals DVT PPX Heparin dnr/dni reason for continued hospitalization: safe discharge plan pending hospice team eval Quality Stroke Does the patient have a stroke diagnosis?: No VTE Prior VTE?: No VTE Risk Level:: Medical - moderate - high VTE Device Contraindication: Treatment Not Indicated VTE Drug Contraindication: N/A - Med Ordered
--- NOTE | 2022-08-17 11:53 | P.PNHO-ONC_ITS ---
Medical Summary - Medical Summary Date of Service: 08/17/22 Medical Summary: DIAGNOSIS: 1. 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 2. RECENT COVID INFECTION. Interval History Interval history: His pain is better controlled and he is alert and awake but seems confused.He has had no new problems overnight. He says the abdominal pi is better. He seems somewhat confused but stabe.He denies new pain but continues with cachexia and profound weakness. Review of Systems - Neurologic Reports system reviewed and no additional complaints, except as documented, Reports headache(s), Reports weakness, Denies abnormal speech, Denies numbness, Denies tingling PMFSH Medical History: Medical History (Last Reviewed 08/10/22 @ 18:14 by Raghavendra Lundberg MD) Bacteremia Gastric adenocarcinoma Gastric out let obstruction Hypertension Liver metastases Vertigo Functional capacity: bed bound Family History: Family History (Last Reviewed 08/10/22 @ 18:14 by Raghavendra Lundberg MD) Father Past heart attack Mother Past heart attack Surgical History: Surgical History (Last Reviewed 08/10/22 @ 18:14 by Raghavendra Lundberg MD) H/O bypass gastrojejunostomy History of appendectomy S/P bypass gastrojejunostomy Social History: Social History (Last Reviewed 08/10/22 @ 18:14 by Raghavendra Lundberg MD) Living Situation History: Household Members: Family Housing: Apartment Do you presently have visiting nurse or other home services: No Tobacco History: Patient Tobacco Use Status: Former Tobacco user Tobacco use type: Cigarette Years Smoked: 30 Smoke Quit Date: quit 26 yr ago e-Cigarette/Vaping Use: Never Used Second Hand Smoke Exposure: No Advance Directives: Advance Directives Date on File: 11/12/21 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 occupational status: retired Home Medications and Allergies Current Medications: Current Medications Heparin Sodium (Porcine) (Heparin Sodium,Porcine 5,000 Unit/Ml Vial) 5,000 unit SUBCUT Q8H [facility] Last Admin: 08/17/22 04:37 Dose: Not Given Hydromorphone HCl (Hydromorphone Hcl 1 Mg/Ml Syringe) 1 mg IVPUSH Q4H PRN; Protocol PRN Reason: Pain, Severe (Pain Scale 7-10) Last Admin: 08/17/22 08:54 Dose: 1 mg Ondansetron HCl (Ondansetron Hcl 4 Mg/2 Ml Vial) 4 mg IVPUSH Q8H PRN PRN Reason: Nausea and Vomiting Last Admin: 08/16/22 12:59 Dose: 4 mg Pharmacy Consult (Consult Rx Perform Med Rec) 1 each MISCELLANE ONCE PRN PRN Reason: Consult order Sodium Chloride (0.9 % Sodium Chloride Flush 3 Ml Syringe) 3 ml IVFLUSH QSHIFT [facility] Last Admin: 08/17/22 08:54 Dose: 3 ml Home Medications Medication Instructions Recorded Confirmed Type vitamin B complex 1 cap PO DAILY 06/03/22 08/10/22 History Allergies Allergy/AdvReac Type Severity Reaction Status Date / Time No Known Allergies Allergy Verified 08/07/22 14:13 [No Known Allergies*] Exam Vital signs: Vital Signs Temp 97.6 F 08/17/22 08:00 Pulse 78 08/17/22 08:00 Resp 15 08/17/22 08:00 BP 118/73 08/17/22 08:00 Pulse Ox 96 08/17/22 08:00 O2 Del Method 08/17/22 08:00 Intake & Output 08/16/22 08/17/22 08/17/22 18:59 06:59 18:59 Intake Total 0 / 0 Output Total 175 / 175 Balance -175 / -175 Urine Output (Average ml/kg/hr) 0.28 Intake: Intake, Oral Amount 0 / 0 Output: Output, Urine Amount 100 / 100 Output, Urine Amount (Catheter) 75 / 75 [place] [facility] 75 / 75 Other: Urine Color Concentrated Weight 53 kg BMI result Body Mass Index 15.8 - Constitutional Present: no acute distress, moderate distress - Routine HEENT Exam Head: Present: atraumatic, normal inspection, normocephalic - Routine Neck Exam Present: full ROM - Routine Respiratory Exam Present: decreased breath sounds, CTAB - Routine Cardiovascular Exam Cardiovascular: Present: RRR, S1, S2, tachycardia - Routine Abdominal Exam Present: diminished bowel sounds, tenderness - Routine Extremities Exam Present: nontender - Routine Skin Exam Present: intact, normal turgor - Routine Psychiatric Exam Present: normal affect Data - Labs CBC & Chem 7: 08/14/22 11:34 08/14/22 11:34 - Imaging Radiologist's impression: ITS Impressions Abdomen/Pelvis CT 08/10/22 16:00 IMPRESSION: 1. There has been significant interval increase in the size and conspicuity of the innumerable hepatic lesions as described above. The dominant 13.7 cm lesion crossing the right and left lobes of the liver has increased in size from the prior 07/08/2022 study. There are additional smaller hepatic lesions now evident as well. The large peripancreatic lymph node has not significantly increased in size from the prior study. 2. There is a new wedge-shaped region of airspace disease in the posterior aspect of the left lower lobe. I do not appreciate any new or suspicious pulmonary nodules. Infectious or inflammatory etiologies possible. 3. Small amount of abdominal ascites is seen, increased from the prior study. 4. Chronic appearing and postoperative changes as described above. 5. There is mild fullness to the left adrenal gland more prominent from prior study. Chest CT 08/10/22 16:00 IMPRESSION: 1. There has been significant interval increase in the size and conspicuity of the innumerable hepatic lesions as described above. The dominant 13.7 cm lesion crossing the right and left lobes of the liver has increased in size from the prior 07/08/2022 study. There are additional smaller hepatic lesions now evident as well. The large peripancreatic lymph node has not significantly increased in size from the prior study. 2. There is a new wedge-shaped region of airspace disease in the posterior aspect of the left lower lobe. I do not appreciate any new or suspicious pulmonary nodules. Infectious or inflammatory etiologies possible. 3. Small amount of abdominal ascites is seen, increased from the prior study. 4. Chronic appearing and postoperative changes as described above. 5. There is mild fullness to the left adrenal gland more prominent from prior study. Head CT 08/10/22 16:00 IMPRESSION: No acute intracranial pathology. Assessment and Plan Patient Active problem list reviewed?: Yes (1) Gastric adenocarcinoma Start date: 08/14/22 Status: Acute Assessment and plan: I agree with current treatment. Hopefully he will respond to second line therapy. I will follow over this long weekend. Today he is weak and speaks with difficulty. The positive covid19 test was August 10. He remains in isolation. - Time Spent With Patient Time Spent with Patient (in minutes): 15
[2022-08-17 12:00] VITALS: BP 132/90; PULSE 89; RESP 18; TEMP 36.3; O2SAT 99
[2022-08-17] MEDS: Heparin Sodium,Porcine 5,000 UNIT/ML VIAL 5000 UNIT SUBCUT ×2 (13:19→21:53)
[2022-08-17 15:42] VITALS: BP 132/87; PULSE 104; RESP 17; TEMP 36.5; O2SAT 92
[2022-08-17 21:53] VITALS: RESP 16
[2022-08-18] VITALS (13 sets, daily range): BP systolic 95–150; BP diastolic 54–72; PULSE 72–89; RESP 12–18; TEMP 36–37; O2SAT 96–99
[2022-08-18] MEDS: HYDROmorphone HCl 1 MG/ML SYRINGE IVPUSH ×4 (02:05→19:03)
[2022-08-18] MEDS: 0.9 % Sodium Chloride Flush 3 ML SYRINGE IVFLUSH ×2 (08:41→17:38)
--- NOTE | 2022-08-18 09:48 | P.PNIM_ITS ---
Subjective Subjective Date of Service: 08/18/22 Interval History: cc: pain interval history:pain Cardiovascular Cardiovascular: Reports no additional cardiovascular complaints Respiratory Respiratory: Reports no additional respiratory complaints Physical Exam Vital Signs: Vital Signs: Last Vital Signs Temp 97.4 F 08/18/22 07:49 Pulse 72 08/18/22 07:49 Resp 18 08/18/22 08:35 BP 118/67 08/18/22 07:49 Pulse Ox 98 08/18/22 07:49 O2 Del Method 08/18/22 07:49 BMI result Body Mass Index 15.8 General: AO X 3, cachexia Resp: CTA bilateral, no accessory muscles used CVS: S1,S2,RRR GI: soft, non tender, non distended Neuro: motor grossly intact, alert Psych: appropriate affect, appropriate insight Objective Data Active Medications Heparin Sodium (Porcine) (Heparin Sodium,Porcine 5,000 Unit/Ml Vial) 5,000 unit SUBCUT Q8H [facility] Last Admin: 08/18/22 05:06 Dose: Not Given Documented By: APPLE Non-Admin Reason: Patient Refused Hydromorphone HCl (Hydromorphone Hcl 1 Mg/Ml Syringe) 1 mg IVPUSH Q4H PRN; Protocol PRN Reason: Pain, Severe (Pain Scale 7-10) Last Admin: 08/18/22 08:35 Dose: 1 mg Documented By: LORETTA Ondansetron HCl (Ondansetron Hcl 4 Mg/2 Ml Vial) 4 mg IVPUSH Q8H PRN PRN Reason: Nausea and Vomiting Last Admin: 08/16/22 12:59 Dose: 4 mg Documented By: PADDY Pharmacy Consult (Consult Rx Perform Med Rec) 1 each MISCELLANE ONCE PRN PRN Reason: Consult order Sodium Chloride (0.9 % Sodium Chloride Flush 3 Ml Syringe) 3 ml IVFLUSH QSHIFT [facility] Last Admin: 08/18/22 08:41 Dose: 3 ml Documented By: LORETTA Labs CBC & Chem 7: 08/14/22 11:34 08/14/22 11:34 Assessment and Plan (1) Gastric out let obstruction: Status: Acute (2) Gastric adenocarcinoma: Status: Acute (3) Liver metastases: Status: Acute Plan An 82 years old male with gastric cancer with liver Mets who presents to the hospital with worsening chest and abdominal pain, decreased oral intake. Intractable abdominal pain secondary to metastatic gastric adenocarcinoma complicated by moderate protein calorie malnutrition pain better controlled now Dilaudid p.r.n. DNR\DNI with plan for hospice PT eval Transaminitis Secondary to liver metastases On palliative chemotherapy Hyperkalemia Kayexalate given Monitor BMP Hyponatremia Secondary to liver Mets and decreased oral intake Follow BMP Moderate malnutrition secondary to adult failure to thrive Continue megestrol Add Ensure with meals DVT PPX Heparin dnr/dni reason for continued hospitalization: safe discharge plan pending hospice team eval Quality Stroke Does the patient have a stroke diagnosis?: No VTE Prior VTE?: No VTE Risk Level:: Medical - moderate - high VTE Device Contraindication: Treatment Not Indicated VTE Drug Contraindication: N/A - Med Ordered
[2022-08-18] MEDS: Heparin Sodium,Porcine 5,000 UNIT/ML VIAL 5000 UNIT SUBCUT ×2 (13:18→21:39)
--- NOTE | 2022-08-18 13:23 | MHC.CLN ---
F/U INTAKE APPEARS POOR, WITH 25% TAKEN AT MEALS DIET RX: REGULAR GRD/M/S-APPROPRIATE PT RECEIVING ENSURE CLEAR TID TO PROVIDE 720KCALS, 24G PROTEIN PT ALSO ON MEGACE PER MD TO INCREASE APPETITE CONTINUE TO MONITOR PO
--- NOTE | 2022-08-18 14:00 | MHC.CM.PN ---
Hospice is planned to meet with the patient today. Follow up requested.
[2022-08-18] MEDS: oxyCODONE HCl Immed Release 5 MG TABLET PO (14:24)
[2022-08-19] VITALS (7 sets, daily range): BP systolic 110–135; BP diastolic 55–82; PULSE 72–86; RESP 12–20; TEMP 35.9–37.1; O2SAT 93–100
[2022-08-19] MEDS: 0.9 % Sodium Chloride Flush 3 ML SYRINGE IVFLUSH ×4 (00:33→19:49)
[2022-08-19] MEDS: HYDROmorphone HCl 1 MG/ML SYRINGE IVPUSH ×4 (01:47→22:39)
--- NOTE | 2022-08-19 11:42 | HO.PM.IMPN ---
Subjective Subjective Date of Service: 08/19/22 Interval History: not eating much Feels more comfortable More muscle waisted and altered discussed goals of care, reported he wants to be comfort and on hospice measures but could not sign the MOLST form Review of Systems No fever, chills but has generalized weakness No chest pain, palpitation No shortness of breath or coughing abdominal pain improved with decreased oral intake No urinary symptoms No reported rash Physical Exam Vital Signs: Vital Signs: Last Vital Signs Temp 96.7 F L 08/19/22 08:00 Pulse 72 08/19/22 08:00 Resp 12 08/19/22 08:00 BP 110/60 08/19/22 08:00 Pulse Ox 98 08/19/22 04:00 O2 Del Method 08/19/22 04:00 BMI result Body Mass Index 15.8 Const: Other: Constitutional : sleepy and frail, cachectic looking Neck : Normal inspection, Supple Cardiovascular :no JVP, no lower extremity edema Respiratory : good bilateral air entry, no crackles, wheezes or rhonchi Gastrointestinal: soft, lax, Normal bowel sounds, generalized mild tenderness Skin : Warm, Dry Neurological : Alert & oriented to self and place , No focal deficit Objective Data Active Medications Heparin Sodium (Porcine) (Heparin Sodium,Porcine 5,000 Unit/Ml Vial) 5,000 unit SUBCUT Q8H [facility] Last Admin: 08/19/22 05:44 Dose: Not Given Documented By: LISA Non-Admin Reason: Patient Refused Hydromorphone HCl (Hydromorphone Hcl 1 Mg/Ml Syringe) 1 mg IVPUSH Q4H PRN; Protocol PRN Reason: Pain, Severe (Pain Scale 7-10) Last Admin: 08/19/22 05:58 Dose: 1 mg Documented By: LISA Ondansetron HCl (Ondansetron Hcl 4 Mg/2 Ml Vial) 4 mg IVPUSH Q8H PRN PRN Reason: Nausea and Vomiting Last Admin: 08/16/22 12:59 Dose: 4 mg Documented By: PADDY Oxycodone HCl (Oxycodone Hcl Immed Release 5 Mg Tablet) 5 mg PO Q4H PRN PRN Reason: moderate pain Last Admin: 08/18/22 14:24 Dose: 5 mg Documented By: DANK Pharmacy Consult (Consult Rx Perform Med Rec) 1 each MISCELLANE ONCE PRN PRN Reason: Consult order Sodium Chloride (0.9 % Sodium Chloride Flush 3 Ml Syringe) 3 ml IVFLUSH QSHIFT [facility] Last Admin: 08/19/22 08:53 Dose: 3 ml Documented By: RJ Labs CBC & Chem 7: 08/14/22 11:34 08/14/22 11:34 Assessment and Plan (1) Gastric adenocarcinoma: Status: Acute (2) Liver metastases: Status: Acute Plan An 82 years old male with gastric cancer with liver Mets who presents to the hospital with worsening chest and abdominal pain, decreased oral intake. Intractable abdominal pain secondary to metastatic gastric adenocarcinoma complicated by moderate protein calorie malnutrition pain better controlled now Dilaudid p.r.n. DNR\DNI with plan for hospice PT eval Transaminitis Secondary to liver metastases On palliative chemotherapy Hyperkalemia Kayexalate given Monitor BMP Hyponatremia Secondary to liver Mets and decreased oral intake Follow BMP Moderate malnutrition secondary to adult failure to thrive Continue megestrol Add Ensure with meals DVT PPX Heparin dnr/dni reason for continued hospitalization: safe discharge plan pending hospice team eval Quality Stroke Does the patient have a stroke diagnosis?: No VTE Prior VTE?: No VTE Risk Level:: Medical - moderate - high VTE Device Contraindication: Treatment Not Indicated VTE Drug Contraindication: N/A - Med Ordered
[2022-08-19] MEDS: Heparin Sodium,Porcine 5,000 UNIT/ML VIAL 5000 UNIT SUBCUT ×2 (13:18→19:49)
[2022-08-19] MEDS: oxyCODONE HCl Immed Release 5 MG TABLET PO (16:52)
[2022-08-20] MEDS: HYDROmorphone HCl 1 MG/ML SYRINGE IVPUSH ×2 (03:00→10:41)
[2022-08-20 04:00] VITALS: BP 117/55; PULSE 68; RESP 20; TEMP 36.6; O2SAT 94
[2022-08-20] MEDS: Heparin Sodium,Porcine 5,000 UNIT/ML VIAL 5000 UNIT SUBCUT ×3 (04:10→21:02)
[2022-08-20 07:23] VITALS: BP 104/56; PULSE 88; RESP 12; TEMP 36.2; O2SAT 97
[2022-08-20] MEDS: 0.9 % Sodium Chloride Flush 3 ML SYRINGE IVFLUSH ×3 (10:40→21:04)
[2022-08-20 12:00] VITALS: BP 97/54; PULSE 75; RESP 12; TEMP 36.6; O2SAT 97
--- NOTE | 2022-08-20 13:17 | MHC.CLN ---
F/U PO INTAKE 25% DIET RX: REGULAR GRD/M/S-APPROPRIATE PT RECEIVING ENSURE CLEAR TID TO PROVIDE 720KCALS, 24G PROTEIN WITH 100% ACCEPTANCE PT ALSO ON MEGACE PER MD TO INCREASE APPETITE CONTINUE TO MONITOR PO
--- NOTE | 2022-08-20 14:32 | P.PNIM_ITS ---
Subjective Subjective Date of Service: 08/20/22 Interval History: C/o severe generalized pain No dyspnea Awaiting hospice placement Review of Systems Review of Systems: Yes all other systems are reviewed and are negative Physical Exam Vital Signs: Vital Signs: Last Vital Signs Temp 97.8 F 08/20/22 12:00 Pulse 75 08/20/22 12:00 Resp 12 08/20/22 12:00 BP 97/54 L 08/20/22 12:00 Pulse Ox 97 08/20/22 12:00 O2 Del Method 08/20/22 12:00 BMI result Body Mass Index 15.8 Gen: in pain, cachectic HEENT: sclera anicteric, moist mucus membranes Neck: supple Lungs: clear to auscultation bilaterally Heart: regular rate and rhythm, no murmurs Abd: soft, non-tender, non-distended Ext: no edema Skin: warm/well-perfused Neuro: alert and oriented x3, no focal findings Psych: appropriate affect Objective Data Active Medications Heparin Sodium (Porcine) (Heparin Sodium,Porcine 5,000 Unit/Ml Vial) 5,000 unit SUBCUT Q8H [facility] Last Admin: 08/20/22 10:41 Dose: 5,000 unit Documented By: RJ Hydromorphone HCl (Hydromorphone Hcl 1 Mg/Ml Syringe) 1.5 mg IVPUSH Q2H PRN; Protocol PRN Reason: Pain, Severe (Pain Scale 7-10) Ondansetron HCl (Ondansetron Hcl 4 Mg/2 Ml Vial) 4 mg IVPUSH Q8H PRN PRN Reason: Nausea and Vomiting Last Admin: 08/16/22 12:59 Dose: 4 mg Documented By: PADDY Pharmacy Consult (Consult Rx Perform Med Rec) 1 each MISCELLANE ONCE PRN PRN Reason: Consult order Sodium Chloride (0.9 % Sodium Chloride Flush 3 Ml Syringe) 3 ml IVFLUSH QSHIFT [facility] Last Admin: 08/20/22 10:40 Dose: 3 ml Documented By: RJ Labs CBC & Chem 7: 08/14/22 11:34 08/14/22 11:34 Assessment and Plan (1) Gastric adenocarcinoma: Status: Acute (2) Liver metastases: Status: Acute Plan hospital d#11 82y M with gastric CA metastatic to liver presenting with worsening pain and dec reased PO # untractable abdominal pain secondary to metastatic gastric adenocarcinoma complicated by moderate protein calorie malnutrition - prn hydromorphone IV - plan for hospice, will need to go to SNF # transaminitis - secondary to liver metastases; was gettinng palliative chemotherapy # hyperK - resolved p SPS # 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
[2022-08-20] MEDS: HYDROmorphone HCl 1 MG/ML SYRINGE 1.5 MG IVPUSH ×2 (14:49→18:05)
--- NOTE | 2022-08-20 15:04 | MHC.CM.PN ---
Per documentation in [facility], Hospice[facility] was here on 08/19/2022 but was unable to complete Informational r/t Patient's s/s of confusion. Documentation in [facility] indicates that decisions are to come from Patient's Brother, who has not been able to be reached. CM will follow.
[2022-08-20 15:34] VITALS: BP 106/66; PULSE 79; RESP 17; TEMP 37.1; O2SAT 93
[2022-08-20 19:40] VITALS: BP 102/54; PULSE 69; RESP 17; TEMP 37.1; O2SAT 96
[2022-08-20 23:38] VITALS: BP 105/51; PULSE 84; RESP 18; TEMP 37; O2SAT 94
[2022-08-21] MEDS: Heparin Sodium,Porcine 5,000 UNIT/ML VIAL 5000 UNIT SUBCUT ×3 (02:27→21:12)
[2022-08-21] MEDS: HYDROmorphone HCl 1 MG/ML SYRINGE 1.5 MG IVPUSH ×7 (02:28→23:40)
[2022-08-21 04:00] VITALS: BP 112/58; PULSE 63; RESP 20; TEMP 37
[2022-08-21 07:44] VITALS: BP 93/47; PULSE 74; RESP 22; TEMP 36.1; O2SAT 94
[2022-08-21] MEDS: 0.9 % Sodium Chloride Flush 3 ML SYRINGE IVFLUSH ×3 (08:33→23:42)
[2022-08-21] MEDS: ondansetron HCL 4 MG/2 ML VIAL IVPUSH ×2 (08:39→18:37)
[2022-08-21 11:17] VITALS: BP 83/53; PULSE 63; RESP 20; TEMP 36.4; O2SAT 98
[2022-08-21 11:28] VITALS: BP 90/48
--- NOTE | 2022-08-21 12:23 | P.PNIM_ITS ---
Subjective Subjective Date of Service: 08/21/22 Interval History: C/o severe generalized pain No dyspnea Awaiting hospice placement Review of Systems No fever, chills but has generalized weakness No chest pain, palpitation No shortness of breath or coughing abdominal pain improved with decreased oral intake No urinary symptoms No reported rash Cardiovascular Cardiovascular: Reports no additional cardiovascular complaints Respiratory Respiratory: Reports no additional respiratory complaints Physical Exam Vital Signs: Vital Signs: Last Vital Signs Temp 97.6 F 08/21/22 11:17 Pulse 63 08/21/22 11:17 Resp 20 08/21/22 11:17 BP 90/48 L 08/21/22 11:28 Pulse Ox 98 08/21/22 11:17 O2 Del Method 08/21/22 11:17 BMI result Body Mass Index 15.8 Const: Other: Constitutional : sleepy and frail, cachectic looking Neck : Normal inspection, Supple Cardiovascular :no JVP, no lower extremity edema Respiratory : good bilateral air entry, no crackles, wheezes or rhonchi Gastrointestinal: soft, lax, Normal bowel sounds, generalized mild tenderness Skin : Warm, Dry Neurological : Alert & oriented to self and place , No focal deficit Objective Data Active Medications Heparin Sodium (Porcine) (Heparin Sodium,Porcine 5,000 Unit/Ml Vial) 5,000 unit SUBCUT Q8H [facility] Last Admin: 08/21/22 02:27 Dose: 5,000 unit Documented By: MARTIN Hydromorphone HCl (Hydromorphone Hcl 1 Mg/Ml Syringe) 1.5 mg IVPUSH Q2H PRN; Protocol PRN Reason: Pain, Severe (Pain Scale 7-10) Last Admin: 08/21/22 08:33 Dose: 1.5 mg Documented By: PADDY Ondansetron HCl (Ondansetron Hcl 4 Mg/2 Ml Vial) 4 mg IVPUSH Q8H PRN PRN Reason: Nausea and Vomiting Last Admin: 08/21/22 08:39 Dose: 4 mg Documented By: PADDY Pharmacy Consult (Consult Rx Perform Med Rec) 1 each MISCELLANE ONCE PRN PRN Reason: Consult order Sodium Chloride (0.9 % Sodium Chloride Flush 3 Ml Syringe) 3 ml IVFLUSH QSHIFT [facility] Last Admin: 08/21/22 08:33 Dose: 3 ml Documented By: PADDY Labs CBC & Chem 7: 08/14/22 11:34 08/14/22 11:34 Assessment and Plan (1) Gastric adenocarcinoma: Status: Acute (2) Liver metastases: Status: Acute Plan hospital d#11 82y M with gastric CA metastatic to liver presenting with worsening pain and decreased PO # untractable abdominal pain secondary to metastatic gastric adenocarcinoma complicated by moderate protein calorie malnutrition - prn hydromorphone IV - plan for hospice, will need to go to SNF # transaminitis - secondary to liver metastases; was gettinng palliative chemotherapy # hyperK - resolved p SPS # 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
[2022-08-21 15:39] VITALS: BP 185/83; PULSE 90; RESP 17; TEMP 36.9; O2SAT 95
[2022-08-21 19:12] VITALS: BP 92/49; PULSE 53; RESP 16; TEMP 36.6; O2SAT 92
[2022-08-22] VITALS: PULSE 44
[2022-08-22] MEDS: 0.9 % Sodium Chloride 1,590 ML 1590 ML IV (01:11)
[2022-08-22] MEDS: HYDROmorphone HCl 1 MG/ML SYRINGE 1.5 MG IVPUSH ×6 (01:43→16:39)
[2022-08-22 02:16] LABS: Lactic Acid 4.2 mmol/L (0.5-2.0)
[2022-08-22] MEDS: Heparin Sodium,Porcine 5,000 UNIT/ML VIAL 5000 UNIT SUBCUT ×2 (03:39→20:09)
[2022-08-22 03:46] LABS: Reflex Lactate? Lactic Acid Added
[2022-08-22 04:16] VITALS: PULSE 47; RESP 18; TEMP 36.7
[2022-08-22 04:23] LABS: ~Lactic Acid-LAB USE ONLY 3.9 mmol/L (0.5-2.0)
--- NOTE | 2022-08-22 05:50 | PM.EVENT ---
Event Note Date of Service: 08/22/22 Event Note: pt became significantly hypotensive overnight with bradycardia. received 3occ/kg fluid and lactic acid elevated. i will order xray, as well as UA, but i do not believe this is related to sepsis and likely 2/2 to underlying cancer and overall poor prognosis.
[2022-08-22] MEDS: Lactated Ringers 1,000 ML 999 ML IV (06:06)
[2022-08-22 06:10] LABS: Reflex Lactate? 2 Y
[2022-08-22 07:29] VITALS: TEMP 36.1
--- NOTE | 2022-08-22 07:55 | PC.NURSE ---
UA not collected, ok per .
[2022-08-22] MEDS: Lactated Ringers 1,000 ML 100 ML IVCONT ×2 (08:19→17:10)
--- NOTE | 2022-08-22 09:32 | P.PNIM_ITS ---
Subjective Subjective Date of Service: 08/22/22 Interval History: f/u gasgtric metastatic cancer, doing poorly and is been considered for hospice Pt became significantly hypotensive overnight with bradycardia. received 3occ/kg fluid and lactic acid elevated. Chest xray showed free air in abd, lactic acid high--likely suffered perforated bowel. Surgery was alerted, he is very ill looking, very emaciated, he's unresponsive and besides visibly still breathing looks . Review of Systems Review of Systems: Yes Unobtainable due to mental status Physical Exam Vital Signs: Vital Signs: Last Vital Signs Temp 97.0 F 08/22/22 07:29 Pulse 47 L 08/22/22 04:16 Resp 18 08/22/22 04:16 BP 92/49 L 08/21/22 19:12 Pulse Ox 92 08/21/22 19:12 O2 Del Method 08/21/22 19:12 BMI result Body Mass Index 15.8 Const: Other: General: unresponsive, very cachectic with cadaveric look Resp: no respiratory effort CVS: S1,S2,RRR GI: scaphoid, no distended, can make out bowel souns Neuro: Unable to perform, c Psych: Not able to assess Objective Data Active Medications Heparin Sodium (Porcine) (Heparin Sodium,Porcine 5,000 Unit/Ml Vial) 5,000 unit SUBCUT Q8H [facility] Last Admin: 08/22/22 03:39 Dose: 5,000 unit Documented By: BERNARDINO Hydromorphone HCl (Hydromorphone Hcl 1 Mg/Ml Syringe) 1.5 mg IVPUSH Q2H PRN; Protocol PRN Reason: Pain, Severe (Pain Scale 7-10) Last Admin: 08/22/22 08:19 Dose: 1.5 mg Documented By: DAKOTA Lactated Ringer's (Lr) 1,000 mls @ 100 mls/hr IVCONT .Q10H [facility] Last Admin: 08/22/22 08:19 Dose: 100 mls/hr Documented By: DAKOTA Ondansetron HCl (Ondansetron Hcl 4 Mg/2 Ml Vial) 4 mg IVPUSH Q8H PRN PRN Reason: Nausea and Vomiting Last Admin: 08/21/22 18:37 Dose: 4 mg Documented By: PADDY Pharmacy Consult (Consult Rx Perform Med Rec) 1 each MISCELLANE ONCE PRN PRN Reason: Consult order Sodium Chloride (0.9 % Sodium Chloride Flush 3 Ml Syringe) 3 ml IVFLUSH QSHIFT [facility] Last Admin: 08/22/22 08:26 Dose: Not Given Documented By: DAKOTA Non-Admin Reason: Previously Administered Labs CBC & Chem 7: 08/14/22 11:34 08/14/22 11:34 Labs: Laboratory Results - last 24 hr 08/22/22 08/22/22 01:40 03:57 Lactic Acid 4.2 H* Lactic Acid F/U @ 2Hr 3.9 H* Assessment and Plan (1) Gastric adenocarcinoma: Status: Acute (2) Liver metastases: Status: Acute Plan hospital d#11 82y M with gastric CA metastatic to liver presenting with worsening pain and decreased PO # intractable abdominal pain secondary to metastatic gastric adenocarcinoma and now what appears to perforated viscus - prn hydromorphone IV for pain - There is been plan to proceed to hospice -I have tried to reach out to brother HCP multiple times with no answer -He is not operative candidate -Prognosis is poor and likely to succumb from this in a relatively short period -holding off further testing and further treatment of any kind until reach brother and to proceed to comfort care. 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
--- NOTE | 2022-08-22 09:48 | P.CONGS_ITS ---
History of Present Illness Consult details Consult date: 08/22/22 Narrative: 82-year-old male patient well known to me with a unresectable gastric adenocarcinoma metastatic to liver presenting with abdominal pain, hypotension, found to have free air under the diaphragm on chest x-ray. Patient presumably has perforation of the gastric tumor. Unfortunately surgical options are limite d. Surgical consultation requested regarding further management. Review of Systems Review of Systems: Yes Unobtainable due to mental condition PMFSH Past Medical History Medical History Bacteremia Gastric adenocarcinoma Gastric out let obstruction Hypertension Liver metastases Vertigo Functional capacity: bed bound Family History Family History Father Past heart attack Mother Past heart attack Surgical History Surgical History H/O bypass gastrojejunostomy History of appendectomy S/P bypass gastrojejunostomy Social History Social History Household Members: Family Housing: Apartment Do you presently have visiting nurse or other home services: No Alcohol intake: unknown Patient Tobacco Use Status: Former Tobacco user Quit Date: quit 26 yr ago Tobacco use type: Cigarette Years Smoked: 30 e-Cigarette/Vaping Use: Never Used Second Hand Smoke Exposure: No Advance Directives Date on File: 11/12/21 service: Yes Current occupational status: retired Cognitive needs: No Hearing needs: No Vision needs: Yes Meds Allergies Allergy/AdvReac Type Severity Reaction Status Date / Time No Known Allergies Allergy Verified 08/07/22 14:13 [No Known Allergies*] Active Medications: Current Medications Heparin Sodium (Porcine) (Heparin Sodium,Porcine 5,000 Unit/Ml Vial) 5,000 unit SUBCUT Q8H [facility] Last Admin: 08/22/22 03:39 Dose: 5,000 unit Hydromorphone HCl (Hydromorphone Hcl 1 Mg/Ml Syringe) 1.5 mg IVPUSH Q2H PRN; Protocol PRN Reason: Pain, Severe (Pain Scale 7-10) Last Admin: 08/22/22 08:19 Dose: 1.5 mg Lactated Ringer's (Lr) 1,000 mls @ 100 mls/hr IVCONT .Q10H [facility] Last Admin: 08/22/22 08:19 Dose: 100 mls/hr Ondansetron HCl (Ondansetron Hcl 4 Mg/2 Ml Vial) 4 mg IVPUSH Q8H PRN PRN Reason: Nausea and Vomiting Last Admin: 08/21/22 18:37 Dose: 4 mg Pharmacy Consult (Consult Rx Perform Med Rec) 1 each MISCELLANE ONCE PRN PRN Reason: Consult order Sodium Chloride (0.9 % Sodium Chloride Flush 3 Ml Syringe) 3 ml IVFLUSH QSHIFT [facility] Last Admin: 08/22/22 08:26 Dose: Not Given Home Medications Medication Instructions Recorded Confirmed Last Taken Type vitamin B complex 1 cap PO DAILY 06/03/22 08/10/22 Unknown History Physical Exam Vital Signs: Vital Signs: Last Vital Signs Temp 97.0 F 08/22/22 07:29 Pulse 47 L 08/22/22 04:16 Resp 18 08/22/22 04:16 BP 92/49 L 08/21/22 19:12 Pulse Ox 92 08/21/22 19:12 O2 Del Method 08/21/22 19:12 BMI result Body Mass Index 15.8 Const: General: ill appearing and patient obtunded Nutritional Appearance: thin Orientation/consciousness: patient obtunded Resp: Effort & Inspection: decreased respiratory effort GI: Inspection: Yes distended and Yes incision Palpation (GI): Firmness to palpation present (GI) Percussion: Yes dullness to percussion Rectal Exam - Male: Yes deferred Skin: General skin exam: turgor normal Neuro: General: patient obtunded Results Labs Result diagrams: 08/14/22 11:34 08/14/22 11:34 Labs: Abnormal lab results 08/22/22 08/22/22 Range/Units 01:40 03:57 Lactic Acid 4.2 H* (0.5-2.0) mmol/L Lactic Acid F/U @ 2Hr 3.9 H* (0.5-2.0) mmol/L All other labs normal. Assessment and Plan (1) Gastric adenocarcinoma: Status: Acute (2) Liver metastases: Status: Acute Plan Unfortunate 82-year-old male with metastatic gastric carcinoma with evidence of free air under the diaphragm by chest x-ray suggestive of a perforated viscus. Patient's overall prognosis is very poor and surgical options are limited. I would not recommend surgical exploration. Patient may best be a candidate for comfort measures. Procedures Date of Service Date of Service: 08/22/22
--- NOTE | 2022-08-22 11:06 | PC.NURSE ---
pt DNR/DNI, awaiting hospise placement. vitals not done - MD aware.
[2022-08-22 11:08] LABS: ~Lactic Acid-LAB USE ONLY 4.4 mmol/L (0.5-2.0)
--- NOTE | 2022-08-22 11:21 | MHC.CM.PN ---
Per MD rounds Patient is in grave condition. Unable to reach HCP via phone MD requested assist. T/W reached out to [facility] Lilia Zhang. She had left contact info earlier this week. She was not available. Emma Power, [facility] sorority supervisor was contacted. She was able to contact Brother Home. He now has MD contact info. MD is aware and expecting a call.
[2022-08-22 13:21] VITALS: RESP 12
--- NOTE | 2022-08-22 13:54 | MHC.CLN ---
F/U PT WITH GRAVE PROGNOSIS SEVERELY MALNOURISHED PO INTAKE POOR DIET RX: REGULAR GRD/M/S-APPROPRIATE PT RECEIVING ENSURE CLEAR TID TO PROVIDE 720KCALS, 24G PROTEIN WITH 100% ACCEPTANCE FOLLOWING WITH TEAM AND WILL PROVIDE SUPPORT NEEDED
[2022-08-22 19:30] VITALS: RESP 10
[2022-08-22] MEDS: 0.9 % Sodium Chloride Flush 3 ML SYRINGE IVFLUSH (20:09)
[2022-08-22 23:40] VITALS: RESP 10
--- NOTE | 2022-08-23 03:08 | PM.EVENT ---
Event Note Date of Service: 08/23/22 Event Note: Was called by the patient's nurse as patient was unresponsive. Upon arrival, no spontaneous movements present. Patient not responsive to verbal or painful stimulus. Pupils fixed and dilated. No breath sounds were appreciated over lung field. No carotid pulses palpable. No heart sounds auscultated over entire precordium. Patient's code status was do not resuscitate. Patient pronounced at 02:49 on 08/23/2022. Tried calling Home (brother) multiple times but no answer.
--- NOTE | 2022-08-23 07:59 | PM.DDS ---
Discharge Sum: Prov Provider Primary care physician: Padilla Corbett MD Consults: 08/10/22 18:17 Consult to Hematology / Oncology Routine Consulting Provider: Tiara Conroy Reason for consultation: Intractable abdominal pain, progressive metastatic cancer Discharge Sum: Diag Contributing Factors (1) Gastric adenocarcinoma: (2) Liver metastases: Discharge Sum: Summary Date and Time Date of admission: 08/10/22 17:53 Summary Details: Chief Complaint: Intractable pain An 82 years old male with gastric cancer with liver Mets who presents to the hospital with worsening chest and abdominal pain, decreased oral intake.? The patient was sleepy at time of interview.? Reports he has been taking oxycodone for pain but is not helping.? He has been following with Oncology as outpatient and ongoing with palliative chemotherapy.? In the emergency was found to have COVID positive status, hyponatremia, hyperkalemia with associated elevated liver enzymes.? Required multiple doses of IV pain medication to control his pain.? Admitted for further evaluation and treatment. Hospital course:This patient with metastatic gastric cancer and has been on paliative chemo and not doing well presented with intractable abdominal pain related to the cancer and found to have covid, hyponatremia, hyperkalemia, severe protein calory malnutrition, dehydration. He was admittted essentially for pain management and nutritional support. His hosppital course was protracted due these issues and continued to declined despite management of the afore mentioned issues, he was no longer candidate for chemo, in the end he suffered a perforated viscus and was not a candidate for surgery, I discussed his overall poor prognosis with his brother (HCP) and elected for no further treatment other managment for comfort. Patient on this day August 23, 2020 at 2:49 am Final diagnoses: Metastatic gastric cancer Perforated Viscuss Hyponatremia due to SIADH Hyperkalemia Severe protein calory malnutrition Transaminiitis due to liver mets Lactic acidosis Covid 19 Hyponglycemia Chronic macrocytic anemia Leukocytosis Additional Data Attending physician: Abhi Noriega MD
== END 2022-08-23 04:00 | disposition expired | DRG 947 ==
LOC: HO.ED 17:37 → HO.EDOVER 18:09 → HO.IMC 18:53
PROVIDERS: Internal Medicine; Nurse Practitioner Family; Admitting Provider Student in an Organized Health Care Education/Training Program; Emergency Provider Emergency Medicine Emergency Medical Services; PCP Internal Medicine; Visit Provider Internal Medicine
DX: G89.3 Neoplasm related pain (acute) (chronic) (principal); E43 Unspecified severe protein-calorie malnutrition; K63.1 Perforation of intestine (nontraumatic); U07.1 COVID-19; C78.7 Secondary malignant neoplasm of liver and intrahepatic bile duct; C16.9 Malignant neoplasm of stomach, unspecified; Z68.1 Body mass index [BMI] 19.9 or less, adult; C78.6 Secondary malignant neoplasm of retroperitoneum and peritoneum; E22.2 Syndrome of inappropriate secretion of antidiuretic hormone; D53.9 Nutritional anemia, unspecified; D63.0 Anemia in neoplastic disease; R00.1 Bradycardia, unspecified; I95.9 Hypotension, unspecified; Z66 Do not resuscitate; Z51.5 Encounter for palliative care; R62.7 Adult failure to thrive; E87.5 Hyperkalemia; Z87.891 Personal history of nicotine dependence; Z79.899 Other long term (current) drug therapy
CPT/HCPCS: 36415; 70450; 71045; 71260; 74177; 80048; 80076; 82947; 83605; 83735; 84484; 85025; 85027; 85610; 87040; 87635; 92950; 93005; 97163; 99285; J1170; J2270; J2405; Q9967